=== PATIENT | female | born 1955 | race Caucasian/White ===

== ENCOUNTER 2018-03-25 19:14 | Emergency (ER) | payer MEDICARE, SELFPAY ==
[2018-03-25] VITALS (11 sets, daily range): BP systolic 92–129; BP diastolic 41–69; PULSE 77–102; RESP 15–22; TEMP 37–37.2; O2SAT 92–96
--- NOTE | 2018-03-25 19:45 | DI.RPTCT_ITS ---
SYMPTOM/DIAGNOSIS: LEFT POSTERIOR HEADACHE, VISION CHANGES, NAUSEA CT BRAIN: Noncontrast examination. Comparison examination is 02/10/2010 The ventricles and sulci are consistent with the patient's age. White matter differentiation is well maintained. The ventricles are intact. The basilar cisterns are patent. No acute intracranial hemorrhage, infarct, midline shift or mass effect is identified. The calvarium is intact. There is again seen an area of scalloped and cortical thinning along the right frontal bone. This is unchanged dating back to the oldest CT scan available which is 10/31/2006. The visualized paranasal sinuses are clear. The mastoid air cells are well pneumatized. IMPRESSION: No acute intracranial process
--- NOTE | 2018-03-25 19:46 | ED.GENADUL ---
Disposition Clinical Impression: Transient visual changes Condition: Good Instructions: Dehydration (ED) Additional Instructions: We will ask our care management team to set up a follow-up appointment with you in Dr. Powell's office. Home to rest today. Small, frequent sips of fluids to maintain hydration. Return if you develop recurrent headache, fever, vomiting, recurrent visual changes or any other concerns. Continue all regularly prescribed medications. Medical Decision Making - Lab Data Laboratory Results - last 24 hr 03/25/18 03/25/18 03/25/18 19:40 19:40 19:40 WBC 7.73 RBC 3.41 L Hgb 9.6 L Hct 31.1 L MCV 91.2 MCH 28.2 MCHC 30.9 L RDW 17.1 H Plt Count 211 MPV 9.1 Immature Gran % 0.4 Neutrophils % 70.9 Lymphocytes % 19.4 Monocytes % 8.0 Eosinophils % 1.2 Basophils % 0.1 Absolute Neutrophils 5.48 Absolute Lymphocytes 1.50 Absolute Monocytes 0.62 Absolute Eosinophils 0.09 Absolute Basophils 0.01 PT 20.0 H INR 2.1 Sodium 138 Potassium 4.3 Chloride 102 Carbon Dioxide 28.7 Anion Gap 7.3 BUN 11 Creatinine 1.22 H Estimated GFR/1.73 m2 44.81 Glucose 147 H Calcium 8.8 Magnesium 2.1 Total Bilirubin 0.2 AST 16 ALT 25 Alkaline Phosphatase 123 H Troponin I < 0.02 Total Protein 7.5 Albumin 3.1 L Results reviewed for labs ordered during visit: Yes - EKG Data -: EKG Interpreted by Ok EKG shows normal: sinus rhythm 03/25/18 20:10 Normal sinus rhythm, rate of 90, QRS is narrow, there is no ST segment elevation present - Radiology Data Radiology results: report reviewed, image reviewed - Medical Decision Making 62-year-old female presents from home following transient visual field changes associated with mild headache and nausea. She is afebrile with unremarkable vital signs although pulse is high at rest in the 90s. Cranial nerves II through XII are intact, no evidence of vestibular dysfunction with normal finger to nose, no nystagmus. Diagnosis would include CVA, migraine headache. IV placed, labs and screening EKG obtained, patient referred for CT scan of the head. Sodium 138, potassium 4.3, chloride 102, bicarb 28, BUN 11, creatinine 1.2, glucose 147, AST 16, ALT 25, troponin negative INR 2.1White blood cell count 7, hematocrit 31, platelets 211. Review of labs will reveal slow decline in hemoglobin over years time. Her creatinine is elevated over most recent baseline of 0.8. CT scan of the head with chronic unchanged findings, no acute finding. Following Zofran and 1 L of fluids, patient improved with no persistent discomfort or complaints. She is able to ambulate independently without dizziness or unsteadiness of gait. We will asked that she have a follow-up arranged by care management for recheck of her laboratories outpatient clinic, specifically including blood count and creatinine. Discussed with her home management as well as return precautions. Do not find evidence of posterior circulation insult. Stable for outpatient management. History of Present Illness - General Chief complaint: CVA/TIA Stated complaint: EYE PROBLEM Time Seen by Provider: 03/25/18 19:33 Source: patient, family, RN notes reviewed Mode of arrival: ambulatory Limitations: no limitations - History of Present Illness Initial comments: Transient visual changes: 62-year-old female states she was at home, watching television, once she had the abrupt and self-limited onset of approximately 20 minutes time in which she felt a blurring of her vision as well as blocks in which she felt that there was picture and picture being demonstrated on the television. Associated with nausea and a mild sensation of dizziness. She relates that all day she felt a dull, mild, achy discomfort in her neck but she says does not really qualify as a pain. She has not had a fever or stiff neck. She did not fall or strike her head. She has not had any recent illness. She does have a history of migraine headaches as well as chronic pain. She is anticoagulated on warfarin for history of blood clots. She states she now feels better, as above the episode lasted 20 minutes, now resolved, now states she feels mildly nauseated. - Related Data Amitriptyline HCl 25 mg PO DAILY #30 tab-cap 01/20/14 Narcotic Contract 03/02/14 Elbow Sleeve 1 DAILY #1 each 03/21/16 Lactobacillus Acidophilus [Probiotic] 1 each PO DAILY 07/04/16 Aspirin 81 mg PO DAILY tab.chew 03/20/17 Nystatin 1 tsp PO QID #120 ml 05/29/17 Baclofen 2 tab PO HS #90 tab-cap 05/31/17 Loperamide HCl [Loperamide] 2 mg PO QID PRN #60 tab 06/19/17 Chlorhexidine Gluconate 2 ml MM BID #473 ml 07/24/17 Blood Sugar Diagnostic [LoggedIntouch Ultra Blue Test Strp] 1 each BID #100 strip 07/31/17 Proventil Hfa 1 - 2 puff IH Q6 hours PRN #1 inhaler 08/22/17 Lancets [LoggedIntouch Lancets] 1 each BID #100 each 08/27/17 Metformin HCl 1,000 mg PO BID #180 tab-cap 09/26/17 Omeprazole 20 mg PO DAILY #90 tab-cap 11/22/17 Magnesium Oxide 2 tab PO TID #540 tab 11/23/17 Warfarin [Coumadin] 5 mg PO DIRECTED BY #100 tab 11/26/17 Dapsone 2 tab PO BID #240 tab-cap 12/04/17 Gabapentin 2 cap PO TID #180 tab-cap 12/04/17 Triamcinolone 0.1% Lotion [Kenalog 0.1% Lotion] 0 TP HS #60 ml 12/04/17 Hydrocodone/Acetaminophen [Hydrocodone-Acetamin 10-325 mg] 1 tab-cap PO Q6H PRN PRN #120 tab-cap 02/12/18 Triamcinolone Acetonide 0 TP BID #30 g 02/12/18 PredniSONE [Deltasone] 0 PO DAILY #24 tab-cap 03/13/18 Allergies Allergy/AdvReac Type Severity Reaction Status Date / Time rizatriptan benzoate Allergy Severe Unverified 03/13/18 14:08 [From Maxalt] azithromycin Allergy Intermediate SOB Unverified 03/13/18 14:08 sulfamethoxazole Allergy Intermediate Unverified 03/13/18 14:08 trimethoprim [From Bactrim] Allergy Intermediate Unverified 03/13/18 14:08 venlafaxine Allergy Intermediate Unverified 03/13/18 14:08 adhesive Allergy RASH Unverified 03/13/18 14:08 wheat Allergy SKIN RASH Unverified 03/13/18 14:08 sertraline AdvReac Intermediate sweating Unverified 03/13/18 14:08 tramadol AdvReac Intermediate Nausea Unverified 03/13/18 14:08 amoxicillin AdvReac GI UPSET Unverified 03/13/18 14:08 Review of Systems Other: 8 systems reviewed, otherwise negative Past Medical History - Past Medical History Medical history: diabetes, GERD, hyperlipidemia dvt, PE. celiac disease. Surgical history: cholecystectomy, other (recent carpal tunnel right wrist) HEAD START DIRECTOR history: no HEAD START DIRECTOR history Family history: CAD/[place] (grand father), diabetes (aunt uncle) - Social History Alcohol use: none Drug use: none General Exam - General Limitations: no limitations General appearance: alert, in no apparent distress - Head Head exam: Present: atraumatic, normocephalic - Eye Eye exam: Present: normal apperance, PERRL, EOMI Pupils: Present: normal accommodation - ENT ENT exam: Present: normal exam, TM's normal bilaterally - Neck Neck exam: Present: normal inspection. Absent: tenderness, meningismus - Respiratory Respiratory exam: Present: normal lung sounds bilaterally. Absent: respiratory distress, chest wall tenderness - Cardiovascular Cardiovascular Exam: Present: regular rate, normal rhythm. Absent: systolic murmur - GI/Abdominal GI/Abdominal exam: Present: soft. Absent: distended - Neurological Exam Neurological exam: Present: alert, oriented X3, CN II-XII intact, other (Extraocular movements intact in all cardinal movements. Visual larios intact. Cranial nerves II through XII intact. Negative Romberg. Normal finger to nose bilateral.). Absent: motor sensory deficit - Psychiatric Psychiatric exam: Present: normal affect, normal mood - Skin Skin exam: Present: warm, dry, intact Course Vital Signs - 24 hr 03/25/18 19:27 Temperature 37.2 C Pulse 99 H Respiratory 16 Rate Blood Pressure 127/69 Pulse Oximetry 94 L
[2018-03-25 19:57] LABS: Abs Immature Grans 0.03 k/cumm (0.0-0.09); Absolute Basophil Count 0.01 k/cumm (0.0-0.2); Absolute Eosinophil Count 0.09 k/cumm (0.0-0.7); Absolute Monocyte Count 0.62 k/cumm (0.11-0.7); Absolute Neutrophil Count 5.48 k/cumm (1.2-6.7); Basophils % 0.1; Eosinophils % 1.2; HCT 31.1 % (36.0-46.0); HGB 9.6 g/dL (12.0-15.5); Immature Grans % 0.4; Lymphocytes % 19.4; Mean Corp. HGB Concentration 30.9 g/dL (32.0-36.0); Mean Corpuscular Hemoglobin 28.2 pg (27.0-33.0); Mean Corpuscular Volume 91.2 fL (80-95); Mean Platelet Volume 9.1 fL (8.0-11.0); Neutrophils % 70.9; Platelet Count 211 x1000/uL (130-400); RBC 3.41 m/cumm (4.00-5.20); RBC Distribution Width 17.1 % (11.7-14.6); White Blood Cell Count 7.73 k/cumm (4.4-10.8)
[2018-03-25 20:12] LABS: INR 2.1 (1.0-3.5)
--- NOTE | 2018-03-25 20:12 | DI.VRAD_ITS ---
EXAM: CT Head Without Intravenous Contrast CLINICAL HISTORY: 62 years old, female; Signs and symptoms; Visual disturbance and other: Left posterior headache, nausea; Patient HX: Left posterior headache, nausea, vision changes TECHNIQUE: Axial computed tomography images of the head/brain without intravenous contrast. Coronal and sagittal reformatted images were created and reviewed. COMPARISON: CT - HEAD WITHOUT CONTRAST 2014-11-21 20:02 FINDINGS: Brain: No evidence of acute intracranial bleed. No mass lesion or mass effect. Granados/white matter differentiation is unremarkable. Cerebellum is unremarkable. Cisterns are unremarkable. Brainstem is unremarkable. No suprasellar mass. Ventricles: Unremarkable. No ventriculomegaly. Bones/joints: Scalloping and cortical thinning again seen in right frontal bone with adjacent prominence of CSF measuring approximately 1.5x1.4 cm. No acute fracture. Soft tissues: Unremarkable. Sinuses: Unremarkable as visualized. No acute sinusitis. Mastoid air cells: Unremarkable as visualized. No mastoid effusion. IMPRESSION: 1. Scalloping and cortical thinning again seen in right frontal bone with adjacent prominence of CSF measuring approximately 1.5x1.4 cm. No significant interval change compared to prior study 2014. The finding likely represents a small arachnoid cyst with osseous remodeling. 2. No evidence of acute pathology. Dictated and Authenticated by: Jase Ness MD. Ordering:NURA SHETTY MD
[2018-03-25 20:20] LABS: ALT 25 U/L (12-78); AST 16 U/L (15-37); Albumin 3.1 g/dL (3.4-5.0); Alkaline Phosphatase 123 U/L (46-116); Anion Gap 7.3 mmol/L (3-11); BUN 11 mg/dL (7-18); Bilirubin, Total 0.2 mg/dL (0.2-1.0); CO2 28.7 mmol/L (21.0-32.0); CREATININE 1.22 mg/dL (0.55-1.02); Calcium 8.8 mg/dL (8.5-10.1); Chloride 102 mmol/L (98-107); Estimated GFR 44.81 (mL/min/1.73m2); Glucose 147 mg/dL (70-100); Magnesium 2.1 mg/dL (1.8-2.4); Potassium 4.3 mmol/L (3.5-5.1); Sodium 138 mmol/L (136-145); Total Protein 7.5 g/dL (6.4-8.2); Troponin I < 0.02 ng/mL (0.00-0.06)
[2018-03-25] MEDS: Normal Saline 1,000 ML 150 ML IV (20:20)
[2018-03-25] MEDS: Ondansetron 4 MG/2 ML VIAL IVP (20:20)
--- NOTE | 2018-03-26 08:23 | PDOC.ERCMPRO ---
Care Management Progress Note 03/26-Dr. Pozo requested assistance with the PCP (Dr. Powell) for follow up labs in 7-10 days. Referral faxed to [facility] this am.
== END 2018-03-25 21:20 ==
PROVIDERS: Emergency Provider Emergency Medicine; PCP Family Medicine
DX: H53.8 Other visual disturbances (principal); R51 Headache; R11.0 Nausea; E11.9 Type 2 diabetes mellitus without complications; Z79.84 Long term (current) use of oral hypoglycemic drugs
CPT/HCPCS: 70450; 93005; 96361; 96374; 99284; 99285; J2405; 36415; 80053; 83735; 84484; 85025; 85610; 93010

== ENCOUNTER → 2018-04-02 01:45 | Outpatient (CLI) | payer MEDICARE, SELFPAY ==
--- NOTE | 2018-04-02 16:35 | DI.REPORT_ITS ---
SYMPTOM/DIAGNOSIS: OSTEOPOROSIS WITHOUT CURRENT PATHOLOGICAL FX M81.8 DEXA SCAN : 04/02 Dexa scan was performed according to the usual protocol. Please see the accompanying data sheets. The findings for left hip scanning are T-score -2.4 with left femoral neck T- score -2.1. Previous left hip T-score was -1.9 in January 2015. Lumbar spine scanning shows T-score of 0.9, previous examination of January 2015 showed lumbar T-score of 1.5 Left forearm scan shows T-score -1.2, previous examination of January 2015 showed left forearm T-score of -1.0 CONCLUSION: Findings consistent with osteopenia, according to the WHO criteria. Lateral vertebral scanogram shows no evidence of vertebral compression fracture.
== END ==
PROVIDERS: PCP Family Medicine; Visit Provider Internal Medicine
DX: M75.82 Other shoulder lesions, left shoulder (principal); M85.88 Other specified disorders of bone density and structure, other site; M25.512 Pain in left shoulder
CPT/HCPCS: 77080; 99213

== ENCOUNTER → 2018-04-19 13:35 | Outpatient (CLI) | payer MEDICARE, SELFPAY ==
--- NOTE | 2018-04-19 13:34 | DI.CT_ITS ---
SYMPTOMS/DIAGNOSIS: CHRONIC LEFT FOOT PAIN, M79.672 CT OF THE LEFT FOOT: Comparison is made with plain films dated February,. Soft tissue calcifications are seen in the subcutaneous fat. The bones are osteoporotic. No fracture is identified. There are small heel spurs. There are mild degenerative changes, greatest at the tarsometatarsal joints. No localized fluid collection, abscess or foreign body is seen. IMPRESSION: Benign soft tissue calcifications. Osteoporosis and mild degenerative changes.
== END ==
PROVIDERS: PCP Family Medicine; Visit Provider Family Medicine
DX: G89.29 Other chronic pain (principal); M79.672 Pain in left foot; M19.072 Primary osteoarthritis, left ankle and foot; M77.32 Calcaneal spur, left foot
CPT/HCPCS: 73700

== ENCOUNTER 2018-04-26 01:11 | Emergency (ER) | payer MEDICARE, SELFPAY ==
[2018-04-26 01:16] VITALS: BP 124/60; PULSE 85; RESP 18; TEMP 37; O2SAT 99
[2018-04-26 01:30] VITALS: BP 124/60; PULSE 85; RESP 18; TEMP 37; O2SAT 99
--- NOTE | 2018-04-26 01:30 | NUR.NOTE ---
Nursing Note: Pt assessed by MD, decided to leave AMA as she did not want to wait for observation. No lip swelling or distinct tongue swelling noted by this nurse or MD. Pt refuses to sign any AMA paperwork and states you'd better not send me a bill to MD.
--- NOTE | 2018-04-26 01:43 | ED.GENADUL_ITS ---
Discharge Plan Disposition Patient Disposition: AGAINST MEDICAL ADVICE Condition: Good Discharge Details Chief Complaint: Allergic Clinical Impression: Mild tongue swelling Primary Care Provider: Jerman Powell ED Provider: Manolo Dodson Home Meds and New Rx's Prescriptions: No Action amitriptyline 25 MG tablet 25 mg PO DAILY Qty: 30 RF: 3 NARCOTIC CONTRACT RF: 0 Elbow Sleeve 1 DAILY Qty: 1 RF: 0 Lactobacillus acidophilus [Probiotic] 1 EACH capsule 1 ea PO DAILY RF: 0 aspirin 81 MG tablet,chewable 81 mg PO DAILY RF: 0 nystatin 1 EACH powder 1 tsp PO QID Qty: 120 RF: 1 baclofen 10 MG tablet 2 tab PO HS Qty: 90 RF: 4 loperamide 2 MG tablet 2 mg PO QID PRNQty: 60 RF: 3 chlorhexidine gluconate 473 ML mouthwash 2 ml Mucous Membrane BID Qty: 473 RF: 2 blood sugar diagnostic [OneTouch Ultra Test] 1 EACH strip 1 ea Miscellaneous BID Qty: 100 RF: 5 PROVENTIL HFA 18 GM HFA.AER.AD 1 - 2 puff Inhalation Q6 hours PRN Qty: 1 RF: 0 lancets [OneTouch UltraSoft Lancets] 1 EACH misc 1 ea Miscellaneous BID Qty: 100 RF: 4 metformin 1,000 MG tablet 1,000 mg PO BID Qty: 180 RF: 4 omeprazole 20 MG capsule,delayed release(DR/EC) 20 mg PO DAILY Qty: 90 RF: 4 magnesium oxide 400 MG tablet 2 tab PO TID Qty: 540 RF: 4 warfarin [Coumadin] 5 MG tablet 5 mg PO DIRECTED BY Qty: 100 RF: 3 dapsone 25 MG tablet 2 tab PO BID Qty: 240 RF: 6 gabapentin 300 MG capsule 2 cap PO TID Qty: 180 RF: 4 triamcinolone acetonide 60 ML lotion Topical HS Qty: 60 RF: 3 triamcinolone acetonide 15 GM cream Topical BID Qty: 30 RF: 3 Hydrocodone/Acetaminophen [Hydrocodone-Acetamin 10-325 mg] 1 EACH tablet 1 tab-cap PO Q6H PRN PRNQty: 120 RF: 0 Discharge Instructions Additional Instructions: You are leaving AMA. I wished to observe you for the next hour or 2 to see if the swelling got worse. Swelling was not obvious and I wanted to see what happened over time. You left without any type of instruction or signing of papers. Referrals: Jerman Powell MD [Primary Care Provider] - Medical Decision Making MDM Narrative Medical decision making narrative: Patient vital signs are normal. Saturations are normal. There is no facial or lip swelling that I appreciate. The tongue may be slightly swollen versus just a large tongue. It is not clear-cut angioedema. There is no posterior oropharynx swelling. There are dry mucous membranes. Lungs are clear and she is in no distress. I did not feel it necessary to treat with medications but wanted to observe her over the next hour or 2 to see if there was any increase in swelling since I could not appreciate significant swelling at this point. She became quite upset with me and told me she was leaving. She would not listen to any explanations as to why I wanted to watch. She would not sign any discharge or AMA instructions. She instructed me that she should not get a bill. Patient left before medication reconcilliation could be done. HPI - General Adult General Mode of arrival: ambulatory . Date/Time Provider Initiated Documentation: 04/26/18 01:23 . Limitations to Documentation: no limitations . Information obtained by: patient . HPI Narrative: Patient presents to ED with complaints of swollen lips and tongue. She states she woke up this way. She denies difficulty breathing or swallowing. She denies any itchiness or rash. She denies numbness or tingling. She has never had this previously. There are no new medications. She is not on JEN inhibitors. She has no fever or chills. She has no mouth or throat pain. Related Data Home Medications Medication Instructions Recorded Confirmed Narcotic Contract 03/02/14 09/21/15 Lactobacillus acidophilus 1 ea PO DAILY 07/04/16 05/03/17 [Probiotic] aspirin 81 mg PO DAILY tab.chew 03/20/17 05/03/17 Allergies Allergy/AdvReac Type Severity Reaction Status Date / Time rizatriptan benzoate Allergy Severe Unverified 04/26/18 01:26 [From Maxalt] azithromycin Allergy Intermediate SOB Unverified 04/26/18 01:26 sulfamethoxazole Allergy Intermediate Unverified 04/26/18 01:26 trimethoprim [From Bactrim] Allergy Intermediate Unverified 04/26/18 01:26 venlafaxine Allergy Intermediate Unverified 04/26/18 01:26 adhesive Allergy RASH Unverified 04/26/18 01:26 wheat Allergy SKIN RASH Unverified 04/26/18 01:26 sertraline AdvReac Intermediate sweating Unverified 04/26/18 01:26 tramadol AdvReac Intermediate Nausea Unverified 04/26/18 01:26 amoxicillin AdvReac GI UPSET Unverified 04/26/18 01:26 General Stated Complaint: Allergic JOSE JUAN: 3 Review of Systems Constitutional Denies chills, Denies fever(s) and Denies weakness Eyes Patient denies and Denies itchy eyes ENT Denies change in voice, Denies dysphagia, Reports dry mouth, Denies otalgia, Denies hoarseness, Reports lip swelling, Denies mouth lesions, Denies mouth pain , Denies nasal congestion, Denies nasal discharge, Denies sinus pain, Denies sore throat, Denies throat swelling and Reports tongue swelling Cardiovascular Denies chest pain and Denies dyspnea Respiratory Denies cough and Denies dyspnea Gastrointestinal Denies abdominal pain and Denies dysphagia Musculoskeletal Denies numbness and Denies tingling Integumentary/Breasts Denies pruritus and Denies rash Neurologic Denies numbness, Denies tingling and Denies weakness Allergic/Immunologic Denies itchy eyes, Reports lip swelling, Denies throat swelling and Reports tongue swelling PFSH Family History Mother Personal history of malignant neoplasm Father Asthma Sister No problems noted. Brother No problems noted. Medical History Chronic pain (Chronic) DVT (deep venous thrombosis) (Chronic) Diabetes mellitus (Chronic) GERD (gastroesophageal reflux disease) (Chronic) Pulmonary embolism (Chronic) Social History Smoking/Tobacco Use Status: Current every day Surgical History section Exam Const General: cooperative, comfortable and no acute distress Orientation: alert and oriented x3 HENMT Head: normocephalic and atraumatic Ears: external ears normal General nose exam: external nose normal Face and sinus: normal facial exam Mouth: oral mucosae normal, lip normal, oropharynx normal, tongue abnormal ( possible symetric swelling of tongue versus large tongue) and other (Mucous membranes are dry) Eyes Conjunctivae: conjunctivae normal Resp Effort & Inspection: normal respiratory effort Auscultation: clear to auscultation bilaterally Cardio Rate: regular rate Rhythm: regular rhythm Heart Sounds: S1 normal and S2 normal Neuro General: alert, oriented x3, gait normal, moves all extremities, no focal motor deficits and CN's II-XI intact bilaterally Course Vital Signs Temperature 98.6 F 04/26/18 01:16 Pulse 85 04/26/18 01:16 Respiratory Rate 18 04/26/18 01:16 Blood Pressure 124/60 04/26/18 01:16 Pulse Oximetry 99 04/26/18 01:16 Temperature 98.6 F 04/26/18 01:30 Pulse 85 04/26/18 01:30 Respiratory Rate 18 04/26/18 01:30 Blood Pressure 124/60 04/26/18 01:30 Pulse Oximetry 99 04/26/18 01:30
== END 2018-04-26 01:29 | disposition left against medical advice (07) ==
LOC: ER 03:35
PROVIDERS: Emergency Provider Emergency Medicine; PCP Family Medicine
DX: R60.0 Localized edema (principal); Z53.29 Procedure and treatment not carried out because of patient's decision for other reasons; E11.9 Type 2 diabetes mellitus without complications; Z79.84 Long term (current) use of oral hypoglycemic drugs
CPT/HCPCS: 99281

== ENCOUNTER 2018-04-29 07:43 | Emergency (ER) | payer MEDICARE, SELFPAY ==
[2018-04-29 07:47] VITALS: BP 145/66; PULSE 92; RESP 16; TEMP 36.8; O2SAT 95
[2018-04-29 08:59] LABS: Abs Immature Grans 0.01 k/cumm (0.0-0.09); Absolute Basophil Count 0.01 k/cumm (0.0-0.2); Absolute Lymphocyte Count 0.69 k/cumm (1.2-3.4); Absolute Monocyte Count 0.22 k/cumm (0.11-0.7); Absolute Neutrophil Count 4.19 k/cumm (1.2-6.7); Basophils % 0.2; HCT 33.5 % (36.0-46.0); HGB 10.3 g/dL (12.0-15.5); Immature Grans % 0.2; Lymphocytes % 13.5; Mean Corp. HGB Concentration 30.7 g/dL (32.0-36.0); Mean Corpuscular Hemoglobin 27.4 pg (27.0-33.0); Mean Corpuscular Volume 89.1 fL (80-95); Monocytes % 4.3; Neutrophils % 81.8; Platelet Count 198 x1000/uL (130-400); RBC 3.76 m/cumm (4.00-5.20); White Blood Cell Count 5.12 k/cumm (4.4-10.8)
--- NOTE | 2018-04-29 09:05 | W.ED.GENAD ---
Discharge Plan Disposition Patient Disposition: HOME Condition: Improving Discharge Details Chief Complaint: Nk/Back Pain Clinical Impression: Sciatica, Fatigue Primary Care Provider: Jerman Powell ED Provider: Carmen Jorge Home Meds and New Rx's Prescriptions: New diazepam 5 mg tablet 5 mg PO TID PRN (Reason: muscle spasm) Qty: 10 RF: 0 oxycodone 5 mg tablet 5 mg PO Q6H PRN (Reason: pain) Qty: 10 RF: 0 Continue amitriptyline 25 MG tablet 25 mg PO DAILY Qty: 30 RF: 3 NARCOTIC CONTRACT RF: 0 Elbow Sleeve 1 DAILY Qty: 1 RF: 0 Lactobacillus acidophilus [Probiotic] 1 EACH capsule 1 ea PO DAILY RF: 0 aspirin 81 MG tablet,chewable 81 mg PO DAILY RF: 0 nystatin 1 EACH powder 1 tsp PO QID Qty: 120 RF: 1 baclofen 10 MG tablet 2 tab PO HS Qty: 90 RF: 4 loperamide 2 MG tablet 2 mg PO QID PRNQty: 60 RF: 3 chlorhexidine gluconate 473 ML mouthwash 2 ml Mucous Membrane BID Qty: 473 RF: 2 blood sugar diagnostic [OneTouch Ultra Test] 1 EACH strip 1 ea Miscellaneous BID Qty: 100 RF: 5 lancets [OneTouch UltraSoft Lancets] 1 EACH misc 1 ea Miscellaneous BID Qty: 100 RF: 4 metformin 1,000 MG tablet 1,000 mg PO BID Qty: 180 RF: 4 omeprazole 20 MG capsule,delayed release(DR/EC) 20 mg PO DAILY Qty: 90 RF: 4 magnesium oxide 400 MG tablet 2 tab PO TID Qty: 540 RF: 4 warfarin [Coumadin] 5 MG tablet 5 mg PO DIRECTED BY Qty: 100 RF: 3 dapsone 25 MG tablet 2 tab PO BID Qty: 240 RF: 6 gabapentin 300 MG capsule 2 cap PO TID Qty: 180 RF: 4 triamcinolone acetonide 60 ML lotion Topical HS Qty: 60 RF: 3 triamcinolone acetonide 15 GM cream Topical BID Qty: 30 RF: 3 Discontinued Hydrocodone/Acetaminophen [Hydrocodone-Acetamin 10-325 mg] 1 EACH tablet 1 tab-cap PO Q6H PRN PRNQty: 120 RF: 0 Discharge Instructions Instructions: Sciatica (ED), Fatigue (ED) Additional Instructions: Drink plenty of fluids and get plenty of rest. Do not take your hydrocodone while you are taking the oxycodone. Do not take the baclofen while you are taking the Valium. Take your baclofen only at nighttime as usual. Call your primary care doctor today to schedule follow-up appointment for reevaluation. Return to the emergency department with any worsening or new concerning symptoms. Discharge Data Discharge Date/Time-TO BE ENTERED AT DEPARTURE: 04/29/18 12:45 Discharge Physician: Carmen Jorge Medical Decision Making MDM Narrative Medical decision making narrative: 62-year-old female with a history of chronic back pain on chronic 10 mg hydrocodone every 6 hours who has chronic lower back pain and history of sciatica who presents with left-sided lower back pain with radiation down her left leg since walking up until yesterday. She has not taken her hydrocodone since last night and she states it does not help . She admits to chronic left lower extremity pain and numbness is states is no worse than usual. Otherwise no other new cauda equina symptoms.. Patient is laying flat on bed and appears uncomfortable. She has tenderness to palpation of her left lower back and left buttock. No focal deficits. Neurovascularly intact. Abdomen soft nontender. Patient also complaining of feeling dehydrated. She states I want to be tested for dehydration. She has a history of celiac disease and admits to diarrhea every day for several months. She also states she feels tired constantly . Patient states she has not seen a specialist for her celiac disease and only her PCP Dr. Powell for which she takes dapsone. She also admits to urinary frequency. Vitals within normal limits. She has dry mucous membranes. Will place an IV, bolus IV fluids, labs, urinalysis, oxycodone, Valium. As patient has a few complaints, I feel overall her back pain complaint is likely sciatica. Her dehydration may be attributable to her chronic diarrhea and celiac disease with malabsorption but will check labs to make sure no other acute cause is anemia, electrolyte abnormality, ACS, or UTI. It is possible her chronic fatigue is due to her chronic diarrhea and malabsorption. She has no complaint of chest pain, shortness of breath, cough or fever, so I do not see an indication for chest x-ray at this time. 0927 --EKG notes a rate of 92, atrial rhythm, no acute ST elevation or depression. There is T-wave inversion in III and aVF which appears new compared to previous. QTc 435. QRS 86. She has no complaint of chest pain or shortness of breath. 1000 --labs reviewed and no obvious signs of dehydration. Glucose 219. Patient has history of diabetes. Bicarb 25.6. Anion gap 10.4. Troponin negative. Magnesium 1.6. Will replete. Urinalysis normal specific gravity and no evidence of obvious infection, micro pending. 1100 --urinalysis micro 3-5 RBCs and 0-2 WBCs. 1130 --patient feels much better. Patient is sitting up on edge of bed texting on phone and appears much more comfortable. Patient states she feels good to go home. Patient states she feels that the hydrocodone that she is taking at home does not help. Will send home with a small prescription for oxycodone as well as Valium. Patient was instructed to not take the hydrocodone while she is taking oxycodone due to increased risk of respiratory depression or . She is also taking multiple other sedating medications including gabapentin, baclofen. She states she takes gabapentin 3 times daily and baclofen only at night. She is instructed to not take the baclofen and Valium at the same time. I also discussed with patient the possibility of steroids for sciatica however due to her history of diabetes and the risk of hyperglycemia with steroids, will hold on this at this time to see if she has relief with the muscle relaxer and pain medication patient is agreeable with this plan. She is instructed to call her primary care doctor today to schedule follow-up appointment for reevaluation. Did not order PT/INR in error initially so will check now. INR 2.1. Patient is requesting to go home. She was able to ambulate around room in no acute distress. She is instructed to return if worse. Lab Data Lab Results 04/29/18 Range/Units 08:55 WBC 5.12 (4.4-10.8) k/cumm RBC 3.76 L (4.00-5.20) m/cumm Hgb 10.3 L (12.0-15.5) g/dL Hct 33.5 L (36.0-46.0) % MCV 89.1 (80-95) fL MCH 27.4 (27.0-33.0) pg MCHC 30.7 L (32.0-36.0) g/dL RDW 16.0 H (11.7-14.6) % Plt Count 198 (130-400) x1000/uL MPV 10.0 (8.0-11.0) fL Immature Gran % 0.2 Neutrophils % 81.8 Lymphocytes % 13.5 Monocytes % 4.3 Eosinophils % 0.0 Basophils % 0.2 Absolute Neutrophils 4.19 (1.2-6.7) k/cumm Absolute Lymphocytes 0.69 L (1.2-3.4) k/cumm Absolute Monocytes 0.22 (0.11-0.7) k/cumm Absolute Eosinophils 0.00 (0.0-0.7) k/cumm Absolute Basophils 0.01 (0.0-0.2) k/cumm HPI - General Adult General Mode of arrival: ambulatory. Date/Time Provider Initiated Documentation: 04/29/18 08:12. Limitations to Documentation: no limitations. Information obtained by: patient. HPI Narrative: Patient is a 62-year-old female with a history of chronic back pain on hydrocodone 10 mg every 6 hours, sciatica, migraine, diabetes, pulmonary embolism and DVT on Coumadin, hyperlipidemia, and peripheral vascular disease presents for left-sided lower back pain with radiation down legs since yesterday after walking uphill. She does have a history of chronic lower back pain and chronic leg pain and tingling for several years. States the back pain is similar in quality to her usual chronic back pain but more intense since walking up the hill yesterday. She denies weakness in her legs. She denies abdominal pain, saddle anesthesia, urinary or fecal incontinence. She does also have a history of celiac disease and admits to chronic diarrhea for several months. States she is on dapsone which was given to her by tax accounting manager who has since moved to [place]. States Dr. Powell her PCP continues her dapsone. She also states she feels like she is dehydrated due to her chronic diarrhea and would like to be tested for dehydration. She also admits to intermittent urinary frequency. She denies fever, chest pain, shortness of breath, hematuria, dysuria. Past medical history: Migraine, GERD, diabetes, hyperlipidemia, peripheral vascular disease, pulmonary embolism, DVT, chronic back pain, celiac disease Surgical history: Social history: Smokes tobacco, previous history of alcohol abuse, denies drugs Medications: Hydrocodone 10/325 mg every 6 hours, Coumadin, baclofen, Neurontin, Prilosec, dapsone, probiotic Allergies: See list PCP: Dr. Powell Related Data Home Medications Medication Instructions Recorded Confirmed Narcotic Contract 03/02/14 09/21/15 Lactobacillus acidophilus 1 ea PO DAILY 07/04/16 04/29/18 [Probiotic] aspirin 81 mg PO DAILY tab.chew 03/20/17 04/29/18 Previous Rx's Medication Instructions Recorded diazepam 5 mg PO TID PRN #10 tab 04/29/18 oxycodone 5 mg PO Q6H PRN #10 tab 04/29/18 Allergies Allergy/AdvReac Type Severity Reaction Status Date / Time rizatriptan benzoate Allergy Severe Unverified 04/29/18 08:00 [From Maxalt] azithromycin Allergy Intermediate SOB Unverified 04/29/18 08:00 sulfamethoxazole Allergy Intermediate Unverified 04/29/18 08:00 trimethoprim [From Bactrim] Allergy Intermediate Unverified 04/29/18 08:00 venlafaxine Allergy Intermediate Unverified 04/29/18 08:00 adhesive Allergy RASH Unverified 04/29/18 08:00 wheat Allergy SKIN RASH Unverified 04/29/18 08:00 sertraline AdvReac Intermediate sweating Unverified 04/29/18 08:00 tramadol AdvReac Intermediate Nausea Unverified 04/29/18 08:00 amoxicillin AdvReac GI UPSET Unverified 04/29/18 08:00 General Stated Complaint: Nk/Back Pain JOSE JUAN: 4 Review of Systems Review of Systems All systems reviewed & are unremarkable except as noted in HPI and below Constitutional Denies chills, Denies excessive sweating, Denies fatigue, Denies fever(s), Denies weakness and Denies weight loss Eyes Patient Reports system reviewed and no additional complaints, except as docu and Denies blurry vision ENT Denies vertigo, Denies dizziness, Denies otalgia, Denies nasal congestion, Denies neck pain, Denies sore throat and Denies throat swelling Cardiovascular Denies chest pain, Denies syncope, Denies rapid heart rate and Denies dyspnea Respiratory Denies dyspnea Gastrointestinal Denies abdominal pain, Denies diarrhea and Denies vomiting Genitourinary Denies hematuria, Denies dysuria and Denies flank pain Musculoskeletal Reports back pain, Denies neck pain and Reports tingling Integumentary/Breasts Denies lesions and Denies rash Neurologic Denies behavioral changes, Denies confusion, Denies vertigo, Denies dizziness, Denies syncope, Reports tingling and Denies weakness Psychiatric Denies behavioral changes, Denies confusion and Denies depression Endocrine Denies excessive sweating and Denies fatigue Hematologic/Lymphatic Denies easy bruising and Denies lymphadenopathy Allergic/Immunologic Denies throat swelling PFSH Family History Mother Personal history of malignant neoplasm Father Asthma Sister No problems noted. Brother No problems noted. Medical History Chronic pain (Chronic) DVT (deep venous thrombosis) (Chronic) Diabetes mellitus (Chronic) GERD (gastroesophageal reflux disease) (Chronic) Pulmonary embolism (Chronic) Social History Smoking/Tobacco Use Status: Current every day Surgical History section Exam Const General: cooperative, no acute distress and other (Appears mildly uncomfortable lying supine on bed, pain with range of motion on bed.) Orientation: alert and awake HENKY Head: normal to inspection Ears: hearing grossly normal bilaterally, external ears normal and TM's normal bilaterally General nose exam: external nose normal Face and sinus: normal facial exam Mouth: moist mucous membranes abnormal (Dry mucous membranes) Eyes General: appearance normal, both eyes and all related structures Eyelids: eyelids normal Pupils: PERRL EOM: EOM intact bilaterally Neck Neck: normal visual inspection Lymphatic: no lymphadenopathy noted Chest Chest: normal inspection of the chest Resp Effort & Inspection: normal respiratory effort and able to speak in complete sentences Auscultation: clear to auscultation bilaterally Cardio Rate: regular rate Rhythm: regular rhythm GI Inspection: normal to inspection Palpation: soft, not firm, no guarding, no hepatosplenomegaly, no masses and nontender Auscultation: normal bowel sounds Back/Spine/Pelvis Back: no CVA tenderness Thoracic/Lumbar Spine: No thoracic spinal tenderness, No lumbar spinal tenderness and other (Tenderness to palpation of left lower back and left buttock without skin changes, ecchymosis, erythema or rash) Skin General skin exam: no rashes or lesions noted Neuro General: alert, awake, oriented x3 and no meningeal signs Cognition: normal cognition Speech: speech normal Gait: normal gait Motor: muscle tone normal throughout, strength 5/5 throughout and other (Negative Babinski bilaterally.) Sensory Exam: no sensory deficits noted DTR's: Rt Patellar: 1+, Lt Patellar: 1+, Rt Ankle: 1+ and Lt Ankle: 1+ Extrem General: normal to inspection, full ROM, normal capillary refill, no edema, no pedal edema and other (Bilateral DP/PT pulses intact.) Psych Appearance: grossly normal Mental Status: mental status grossly normal Speech and Movement: speech and movement normal Affect: normal affect Thought Process: normal Course Vital Signs Temperature 98.2 F 04/29/18 07:47 Pulse 92 H 04/29/18 07:47 Respiratory Rate 16 04/29/18 07:47 Blood Pressure 145/66 H 04/29/18 07:47 Pulse Oximetry 95 04/29/18 07:47 Temperature 98.2 F 04/29/18 07:47 Pulse 92 H 04/29/18 07:47 Respiratory Rate 16 04/29/18 07:47 Blood Pressure 145/66 H 04/29/18 07:47 Pulse Oximetry 95 04/29/18 07:47 Lab/Test Results Lab/Test Results: Laboratory Tests 04/29/18 08:55 WBC 5.12 RBC 3.76 L Hgb 10.3 L Hct 33.5 L MCV 89.1 MCH 27.4 MCHC 30.7 L RDW 16.0 H Plt Count 198 MPV 10.0 Immature Gran % 0.2 Neutrophils % 81.8 Lymphocytes % 13.5 Monocytes % 4.3 Eosinophils % 0.0 Basophils % 0.2 Absolute Neutrophils 4.19 Absolute Lymphocytes 0.69 L Absolute Monocytes 0.22 Absolute Eosinophils 0.00 Absolute Basophils 0.01
[2018-04-29 09:15] LABS: ALT 24 U/L (12-78); AST 15 U/L (15-37); Albumin 3.2 g/dL (3.4-5.0); Alkaline Phosphatase 121 U/L (46-116); Anion Gap 10.4 mmol/L (3-11); BUN 12 mg/dL (7-18); Bilirubin, Total 0.3 mg/dL (0.2-1.0); CO2 25.6 mmol/L (21.0-32.0); CREATININE 0.83 mg/dL (0.55-1.02); Chloride 104 mmol/L (98-107); Glucose 219 mg/dL (70-100); Magnesium 1.6 mg/dL (1.8-2.4); Potassium 4.1 mmol/L (3.5-5.1); Sodium 140 mmol/L (136-145); Total Protein 7.7 g/dL (6.4-8.2)
[2018-04-29] MEDS: Diazepam 5 MG TAB PO (09:15)
[2018-04-29 09:19] LABS: Troponin I < 0.02 ng/mL (0.00-0.06)
[2018-04-29] MEDS: Normal Saline 1,000 ML 1000 ML IV (09:19)
[2018-04-29] MEDS: oxyCODONE 5 MG TAB 10 MG PO (09:35)
[2018-04-29 09:59] LABS: Bilirubin Negative (Negative); Blood Trace-lysed (Negative); Clarity Clear; Glucose 250 mg/dL (Negative); Ketones Negative (Negative); Leukocyte Esterase Negative (Negative); Nitrite Negative (Negative); Urobilinogen 0.2 EU/dL (Up TO 0.2); pH 6.5 (5-8)
[2018-04-29 10:13] LABS: Bacteria Rare HPF (Negative); C & S Indicated? No; Casts Negative LPF (Negative); Crystals Negative HPF (Negative); Epithelial Cells Few HPF (Negative); Mucus Negative (Negative); Other Cells Rare Renal (Negative); WBC 0-2 HPF (0-5)
[2018-04-29 12:03] VITALS: BP 129/53; PULSE 89; RESP 20; TEMP 37.1; O2SAT 96
[2018-04-29 12:20] LABS: INR 2.1 (1.0-3.5); Prothrombin Time 20.2 sec (9.3-10.8)
[2018-04-29] MEDS: Magnesium Oxide 400 MG TAB PO (12:29)
== END 2018-04-29 12:45 | disposition home or self-care (01) ==
PROVIDERS: Emergency Provider Physician Assistant; PCP Family Medicine
DX: M54.32 Sciatica, left side (principal); M54.5 Low back pain; G89.29 Other chronic pain; R53.83 Other fatigue; E83.42 Hypomagnesemia; E11.9 Type 2 diabetes mellitus without complications
CPT/HCPCS: 36415; 80053; 93005; 99284; 81003; 81015; 83735; 84484; 85025; 85610; 93010; 99285

== ENCOUNTER → 2018-05-14 09:27 | Outpatient (BNVA) | payer MEDICARE, SELFPAY | PROVIDERS: PCP Family Medicine; Referring Provider Family Medicine; Visit Provider Orthopaedic Surgery | DX: M79.672 Pain in left foot (principal); G89.29 Other chronic pain | CPT/HCPCS: 99212 ==

== ENCOUNTER 2018-05-14 10:31 | Outpatient (CLI) | payer MEDICARE, SELFPAY ==
[2018-05-14 11:58] LABS: ESR 46 MM/HR (0-30)
[2018-05-14 12:27] LABS: Uric Acid 5.6 mg/dL (2.6-6.0)
== END 2018-05-14 10:51 ==
LOC: LBO 10:32
PROVIDERS: PCP Family Medicine; Visit Provider Orthopaedic Surgery
DX: M79.672 Pain in left foot (principal); R22.42 Localized swelling, mass and lump, left lower limb
CPT/HCPCS: 36415; 85652; 99212; 84550

== ENCOUNTER 2018-06-04 07:07 | Outpatient (CLI) | payer MEDICARE, SELFPAY ==
[2018-06-04 08:54] LABS: INR 2.2 (1.0-3.5); Prothrombin Time 20.8 sec (9.3-10.8)
== END 2018-06-04 07:27 ==
PROVIDERS: PCP Family Medicine; Visit Provider Family Medicine
DX: I26.99 Other pulmonary embolism without acute cor pulmonale (principal); Z79.01 Long term (current) use of anticoagulants
CPT/HCPCS: 36415; 85610

== ENCOUNTER 2018-06-07 07:46 | Emergency (ER) | payer MEDICARE, SELFPAY ==
[2018-06-07 08:11] VITALS: BP 106/67; PULSE 91; RESP 18; TEMP 36.8; O2SAT 92
[2018-06-07 08:45] LABS: Abs Immature Grans 0.03 k/cumm (0.0-0.09); Absolute Basophil Count 0.01 k/cumm (0.0-0.2); Absolute Eosinophil Count 0.11 k/cumm (0.0-0.7); Absolute Lymphocyte Count 1.11 k/cumm (1.2-3.4); Absolute Monocyte Count 0.68 k/cumm (0.11-0.7); Absolute Neutrophil Count 6.37 k/cumm (1.2-6.7); Basophils % 0.1; Eosinophils % 1.3; HCT 30.7 % (36.0-46.0); HGB 9.6 g/dL (12.0-15.5); Immature Grans % 0.4; Lymphocytes % 13.4; Mean Corp. HGB Concentration 31.3 g/dL (32.0-36.0); Mean Corpuscular Volume 86.5 fL (80-95); Mean Platelet Volume 9.9 fL (8.0-11.0); Monocytes % 8.2; Neutrophils % 76.6; Platelet Count 228 x1000/uL (130-400); RBC 3.55 m/cumm (4.00-5.20); RBC Distribution Width 16.5 % (11.7-14.6); White Blood Cell Count 8.31 k/cumm (4.4-10.8)
[2018-06-07 09:03] LABS: ALT 30 U/L (12-78); AST 28 U/L (15-37); Albumin 2.6 g/dL (3.4-5.0); Alkaline Phosphatase 128 U/L (46-116); BUN 11 mg/dL (7-18); Bilirubin, Total 0.5 mg/dL (0.2-1.0); CREATININE 0.93 mg/dL (0.55-1.02); Calcium 9.2 mg/dL (8.5-10.1); Chloride 97 mmol/L (98-107); Glucose 113 mg/dL (70-100); Potassium 4.3 mmol/L (3.5-5.1); Sodium 135 mmol/L (136-145); Total Protein 7.5 g/dL (6.4-8.2); Troponin I < 0.02 ng/mL (0.00-0.06)
[2018-06-07] MEDS: Normal Saline 1,000 ML 1000 ML IV (09:05)
[2018-06-07 09:09] LABS: PTT Activated 52.3 sec (21.0-31.4); Prothrombin Time 39.2 sec (9.3-10.8)
[2018-06-07 09:28] LABS: D-Dimer 1163 ng/mlFEU (<500); INR 4.2 (1.0-3.5)
--- NOTE | 2018-06-07 09:47 | DI.CT_ITS ---
SYMPTOMS/DIAGNOSIS: CHEST PAIN, SHORTNESS OF BREATH, ELEVATED D DIMER, MILD HYPOXEMIA CT ANGIOGRAM CHEST: CT angiography was performed with multi slice acquisition and multi planar and 3D reconstruction. CT Angiography of the chest was performed with bolus infusion of 100 cc's of Omnipaque 350. There is note made of hepatic steatosis. Imaging through visualized portions of the upper abdomen is otherwise unremarkable. No evidence of pulmonary embolic disease. No thoracic aortic dissection or aneurysm. Unremarkable appearance of major aortic branches. The tracheobronchial tree appears intact. There are diffuse predominantly upper to mid lung field ground glass and reticular opacities bilaterally. No gross consolidation seen. No pleural effusion seen. No mass lesion identified. No gross mediastinal or hilar adenopathy. CONCLUSION: No evidence of pulmonary embolic disease. There are diffuse predominantly upper to mid lung field ground glass and reticular opacities. The differential diagnosis would include viral or atypical infectious process, eosinophilic pneumonia, hypersensitivity pneumonia, or idiopathic inflammatory interstitial pneumonia. Close clinical follow up and repeat chest CT following treatment recommended.
[2018-06-07] MEDS: Omnipaque 350 MG/ML 100 ML BTL IJ (10:26)
--- NOTE | 2018-06-07 12:47 | ED.GENADUL_ITS ---
Discharge Plan Disposition Patient Disposition: HOME Condition: Good Discharge Details Chief Complaint: Chest Pain Clinical Impression: Pneumonitis, Acid reflux Primary Care Provider: Jerman Powell ED Provider: Scout Freeman Home Meds and New Rx's Prescriptions: New prednisone 50 MG tablet 50 mg PO DAILY Qty: 5 RF: 0 doxycycline hyclate 100 mg capsule 100 mg PO BID Qty: 14 RF: 0 omeprazole 40 mg capsule,delayed release(DR/EC) 40 mg PO DAILY Qty: 30 RF: 0 sucralfate [Carafate] 1 gram tablet 1 gm PO ONCE Qty: 30 RF: 0 No Action prednisone 20 mg tablet 40 mg PO DAILY Qty: 14 RF: 0 gabapentin 600 mg tablet 600 mg PO TID Qty: 90 RF: 3 baclofen 10 mg tablet 20 mg PO HS Qty: 90 RF: 4 NARCOTIC CONTRACT RF: 0 Elbow Sleeve 1 DAILY Qty: 1 RF: 0 Lactobacillus acidophilus [Probiotic] 1 EACH capsule 1 ea PO DAILY RF: 0 aspirin 81 MG tablet,chewable 81 mg PO DAILY RF: 0 loperamide 2 MG tablet 2 mg PO QID PRNQty: 60 RF: 3 chlorhexidine gluconate 473 ML mouthwash 2 ml Mucous Membrane BID Qty: 473 RF: 2 lancets [[employer]IncTouch UltraSoft Lancets] 1 EACH misc 1 ea Miscellaneous BID Qty: 100 RF: 4 metformin 1,000 MG tablet 1,000 mg PO BID Qty: 180 RF: 4 omeprazole 20 MG capsule,delayed release(DR/EC) 20 mg PO DAILY Qty: 90 RF: 4 magnesium oxide 400 MG tablet 2 tab PO TID Qty: 540 RF: 4 dapsone 25 MG tablet 2 tab PO BID Qty: 240 RF: 6 triamcinolone acetonide 60 ML lotion Topical HS Qty: 60 RF: 3 triamcinolone acetonide 15 GM cream Topical BID Qty: 30 RF: 3 warfarin [Coumadin] 5 mg tablet 5 mg PO DIRECTED BY Qty: 150 RF: 3 blood sugar diagnostic [[employer]Touch Ultra Test] strip 1 ea Miscellaneous BID Qty: 100 RF: 5 amitriptyline 25 mg tablet 25 mg PO DAILY Qty: 90 RF: 4 hydrocodone-acetaminophen 10-325 mg tablet 1 tab PO Q6H PRN (Reason: pain) Qty: 120 RF: 0 nystatin 100,000 unit/mL suspension 1 ml PO QID 14 Days Qty: 60 RF: 3 diazepam 5 mg tablet 5 mg PO TID PRN (Reason: muscle spasm) Qty: 10 RF: 0 Discharge Instructions Instructions: Gastroesophageal Reflux Disease (ED) Additional Instructions: Please take the medication as directed, if you notice any worsening of your symptoms, or any new symptoms such as vomiting, diarrhea, fever, chills, shortness of breath, chest pain, numbness, weakness, or fainting , please return immediately to the emergency department for reevaluation. Please follow up with your primary care provider as soon as possible for reassessment and reevaluation. As always, it was a pleasure participating in your medical care today. Referrals: Jerman Powell MD [Primary Care Provider] - Discharge Data Discharge Date/Time-TO BE ENTERED AT DEPARTURE: 06/07/18 13:02 Medical Decision Making This is a 62-year-old female with a past medical history of tobacco abuse, diabetes, Coumadin use secondary to protein C deficiency and history of blood clots. She presents today for burning in her chest for the last 2 weeks, worse when she lies flat, worse with spicy foods, however she does have a pleuritic component with it as well as symptoms of shortness of breath over the last few weeks. Physical exam demonstrates minimal crackles in the lung bases, but no other significant abnormalities. No other concerning red flags. Vital signs are stable, with no significant hypoxemia. Patient's laboratory workup did demonstrate an elevated d-dimer. CT angiogram was ordered and demonstrates no evidence of pulmonary embolism however there is notable groundglass and reticular opacities throughout, concerning for eosinophilic reactive pneumonia. Patient does not have any significant white count, or any signs of severe infection, no systemic symptoms of fever, tachycardia, or bandemia. Patient was also given a GI cocktail and she had complete resolution of the burning symptoms in her chest. Feel that she has 2 components for her symptoms, component of reflux, as well as an associated atypical reactive pneumonia that is the cause of her shortness of breath. Troponin and EKG are benign. I do not feel that her current clinical picture and symptoms correlate with a cardiac etiology. We will treat the reactive pneumonia with steroids and azithromycin, we will treat the reflux with enhanced current medications she has not been taking any of her regular medications for her reflux. Had a long discussion with the patient regarding red flags which to return, foods for which to avoid, the importance of close follow-up with her primary care provider. I have extensively reviewed the treatment plan and discharge instructions with the patient and their family. I have addressed all patient concerns at this time. The patient and family was made aware of what symptoms to monitor for that would warrant a return to the emergency department. Discussed the plan with the patient and family, they demonstrate verbal understanding and agreement with our assessment and plan at this time. 7: 53 AM Rate 110, IN 144, QTc 444, QRS 86, sinus tachycardia, no ST elevations or depressions, no Q waves. No signs of right heart strain. CONCLUSION: No evidence of pulmonary embolic disease. There are diffuse predominantly upper to mid lung field ground glass and reticular opacities. The differential diagnosis would include viral or atypical infectious process, eosinophilic pneumonia, hypersensitivity pneumonia, or idiopathic inflammatory interstitial pneumonia. Close clinical follow up and repeat chest CT following treatment recommended. HPI General Date/Time Provider Initiated Documentation: 06/07/18 08:12 . HPI Narrative: This is a 62-year-old female with a past medical history of diabetes mellitus, tobacco use, GERD, a history of blood clots for which she takes Coumadin, and a protein C deficiency. She presents today with 2 weeks of burning in her chest, worse when she lies down flat, worse with spicy foods. However there is also a pleuritic component which makes her symptoms worse as well. She does admit to shortness of breath and cough over the last few weeks. She denies any chest pain, she denies any chest pressure. She does admit to some mild nausea. Her shortness of breath is made worse with exertion. She has no associated arm neck or shoulder pain. She denies any tearing sensation in her chest. Aside for the protein C deficiency, the patient denies PE risk factors such as recent long car rides, immobilization, recent surgery, morbid obesity, exogenous estrogen and hemoptysis, history of cancer. Patient denies any significant cardiac history. The patient has no other complaints at this time. No other modifying factors at this time. Past surgical history is positive for . Related Data Home Medications Medication Instructions Recorded Confirmed Narcotic Contract 03/02/14 05/28/18 Lactobacillus acidophilus 1 ea PO DAILY 07/04/16 05/28/18 [Probiotic] aspirin 81 mg PO DAILY tab.chew 03/20/17 05/28/18 loperamide 2 mg PO QID PRN #60 tab 06/19/17 05/28/18 chlorhexidine gluconate 2 ml MUCOUS MEMBRANE BID #473 ml 07/24/17 05/28/18 lancets [OneTouch UltraSoft #100 ea 08/27/17 05/28/18 Lancets] metformin 1,000 mg PO BID #180 tab-cap 09/26/17 05/28/18 omeprazole 20 mg PO DAILY #90 tab-cap 11/22/17 05/28/18 magnesium oxide 2 tab PO TID #540 tab 11/23/17 05/28/18 dapsone 2 tab PO BID #240 tab-cap 12/04/17 05/28/18 triamcinolone acetonide 0 TOPICAL HS #60 ml 12/04/17 05/28/18 triamcinolone acetonide 0 TOPICAL BID #30 g 02/12/18 05/28/18 diazepam 5 mg PO TID PRN #10 tab 04/29/18 05/28/18 warfarin 5 mg tablet 5 mg PO DIRECTED BY #150 tab 05/06/18 05/28/18 blood sugar diagnostic strips #100 strip 05/07/18 05/28/18 amitriptyline 25 mg tablet 25 mg PO DAILY #90 tab-cap 05/09/18 05/28/18 hydrocodone 10 mg-acetaminophen 1 tab PO Q6H PRN #120 tab 05/09/18 05/28/18 325 mg tablet baclofen 10 mg tablet 20 mg PO HS #90 tab-cap 05/14/18 05/28/18 gabapentin 600 mg tablet 600 mg PO TID #90 tab 05/14/18 05/28/18 prednisone 20 mg tablet 40 mg PO DAILY #14 tab 05/28/18 05/28/18 nystatin 100,000 unit/mL oral 1 ml PO QID 14 Days #60 ml 06/04/18 suspension doxycycline hyclate 100 mg PO BID #14 cap 06/07/18 omeprazole 40 mg PO DAILY #30 cap 06/07/18 prednisone 50 mg PO DAILY #5 tab 06/07/18 sucralfate [Carafate] 1 gm PO ONCE #30 tab 06/07/18 Previous Rx's Medication Instructions Recorded chlorhexidine gluconate 2 ml MUCOUS MEMBRANE BID #473 ml 07/24/17 lancets [OneTouch UltraSoft #100 ea 08/27/17 Lancets] metformin 1,000 mg PO BID #180 tab-cap 09/26/17 omeprazole 20 mg PO DAILY #90 tab-cap 11/22/17 magnesium oxide 2 tab PO TID #540 tab 11/23/17 dapsone 2 tab PO BID #240 tab-cap 12/04/17 diazepam 5 mg PO TID PRN #10 tab 04/29/18 warfarin 5 mg tablet 5 mg PO DIRECTED BY #150 tab 05/06/18 blood sugar diagnostic strips #100 strip 05/07/18 amitriptyline 25 mg tablet 25 mg PO DAILY #90 tab-cap 05/09/18 hydrocodone 10 mg-acetaminophen 1 tab PO Q6H PRN #120 tab 05/09/18 325 mg tablet baclofen 10 mg tablet 20 mg PO HS #90 tab-cap 05/14/18 gabapentin 600 mg tablet 600 mg PO TID #90 tab 05/14/18 prednisone 20 mg tablet 40 mg PO DAILY #14 tab 05/28/18 nystatin 100,000 unit/mL oral 1 ml PO QID 14 Days #60 ml 06/04/18 suspension doxycycline hyclate 100 mg PO BID #14 cap 06/07/18 omeprazole 40 mg PO DAILY #30 cap 06/07/18 prednisone 50 mg PO DAILY #5 tab 06/07/18 sucralfate [Carafate] 1 gm PO ONCE #30 tab 06/07/18 Allergies Allergy/AdvReac Type Severity Reaction Status Date / Time rizatriptan benzoate Allergy Severe Unverified 05/28/18 15:21 [From Maxalt] azithromycin Allergy Intermediate SOB Unverified 05/28/18 15:21 sulfamethoxazole Allergy Intermediate Unverified 05/28/18 15:21 trimethoprim [From Bactrim] Allergy Intermediate Unverified 05/28/18 15:21 venlafaxine Allergy Intermediate Unverified 05/28/18 15:21 adhesive Allergy RASH Unverified 05/28/18 15:21 wheat Allergy SKIN RASH Unverified 05/28/18 15:21 sertraline AdvReac Intermediate sweating Unverified 05/28/18 15:21 tramadol AdvReac Intermediate Nausea Unverified 05/28/18 15:21 amoxicillin AdvReac GI UPSET Unverified 05/28/18 15:21 General Stated Complaint: Chest Pain JOSE JUAN: 3 Review of Systems Review of Systems All systems reviewed & are unremarkable except as noted in HPI and below Exam Narrative Exam Narrative: 1.Const: Well-nourished, Well-developed, appearing stated age 2.Eyes: PERRL, no conjunctival injection, and symmetrical lids. 3.ENT: Atraumatic external nose and ears. Moist MM. Neck: Symmetric, trachea midline, No thyromegaly. 4.CVS: +S1/S2, No murmurs or gallops. Peripheral pulses 2+ and equal in all extremities. Brisk capillary refill in all extremities. 5.RESP: Unlabored respiratory effort. Minimal crackles in the bases, no significant wheezes or rhonchi. 6.GI: Soft, Nontender/Nondistended, No hepatosplenomegaly. No guarding or rebound. 7.MSK: Normocephalic/Atraumatic, Extremities w/o deformity or ttp No cyanosis or clubbing, Normal movement of all extremities. No calf tenderness, negative Homans sign. 8.Skin: Warm, Dry. No rashes or lesions. 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 Sensation grossly intact, no focal neurologic deficits. 10.Psych: (AAO) x3. Appropriate mood and affect Course Vital Signs Temperature 36.8 C 06/07/18 08:11 Pulse 91 H 06/07/18 08:11 Respiratory Rate 18 06/07/18 08:11 Blood Pressure 106/67 06/07/18 08:11 Pulse Oximetry 92 L 06/07/18 08:11 Temperature 36.8 C 06/07/18 08:11 Temperature Source Temporal Artery Scan 06/07/18 08:11 Pulse 91 H 06/07/18 08:11 Respiratory Rate 18 06/07/18 08:11 Respiratory Effort 06/07/18 08:14 Respiratory Depth Normal 06/07/18 08:14 Respiratory Pattern Normal 06/07/18 08:14 Blood Pressure 106/67 06/07/18 08:11 Blood Pressure Position Supine 06/07/18 08:11 Pulse Oximetry 92 L 06/07/18 08:11 Oxygen Delivery Method Room Air 06/07/18 08:11 Oxygen Flow Rate 0 06/07/18 08:11 Pain Level 2 06/07/18 08:11 Lab/Test Results Lab/Test Results: Laboratory Tests Range/Units 06/07/18 06/07/18 06/07/18 08:38 08:38 08:38 WBC (4.4-10.8) k/cumm 8.31 RBC (4.00-5.20) m/cumm 3.55 L Hgb (12.0-15.5) g/dL 9.6 L Hct (36.0-46.0) % 30.7 L MCV (80-95) fL 86.5 MCH (27.0-33.0) pg 27.0 MCHC (32.0-36.0) g/dL 31.3 L RDW (11.7-14.6) % 16.5 H Plt Count (130-400) x1000/uL 228 MPV (8.0-11.0) fL 9.9 Immature Gran % 0.4 Neutrophils % 76.6 Lymphocytes % 13.4 Monocytes % 8.2 Eosinophils % 1.3 Basophils % 0.1 Absolute Neutrophils (1.2-6.7) k/cumm 6.37 Absolute Lymphocytes (1.2-3.4) k/cumm 1.11 L Absolute Monocytes (0.11-0.7) k/cumm 0.68 Absolute Eosinophils (0.0-0.7) k/cumm 0.11 Absolute Basophils (0.0-0.2) k/cumm 0.01 PT (9.3-10.8) sec 39.2 H INR (1.0-3.5) 4.2 H* APTT (21.0-31.4) sec 52.3 H D-Dimer (<500) ng/mlFEU 1163 H Sodium (136-145) mmol/L 135 L Potassium (3.5-5.1) mmol/L 4.3 Chloride (98-107) mmol/L 97 L Carbon Dioxide (21.0-32.0) mmol/L 26.0 Anion Gap (3-11) mmol/L 12.0 H BUN (7-18) mg/dL 11 Creatinine (0.55-1.02) mg/dL 0.93 Estimated GFR/1.73 m2 (mL/min/1.73m2) >= 60.00 Glucose (70-100) mg/dL 113 H Calcium (8.5-10.1) mg/dL 9.2 Total Bilirubin (0.2-1.0) mg/dL 0.5 AST (15-37) U/L 28 ALT (12-78) U/L 30 Alkaline Phosphatase (46-116) U/L 128 H Troponin I (0.00-0.06) ng/mL < 0.02 Total Protein (6.4-8.2) g/dL 7.5 Albumin (3.4-5.0) g/dL 2.6 L
[2018-06-07 13:01] VITALS: BP 133/80; PULSE 87; RESP 18; TEMP 36.8; O2SAT 99
== END 2018-06-07 13:02 | disposition home or self-care (01) ==
PROVIDERS: Emergency Provider Student in an Organized Health Care Education/Training Program; PCP Family Medicine
DX: K21.9 Gastro-esophageal reflux disease without esophagitis (principal); J18.9 Pneumonia, unspecified organism; R79.1 Abnormal coagulation profile; T45.515A Adverse effect of anticoagulants, initial encounter; E11.9 Type 2 diabetes mellitus without complications; Z79.84 Long term (current) use of oral hypoglycemic drugs; Z79.01 Long term (current) use of anticoagulants; F17.210 Nicotine dependence, cigarettes, uncomplicated
CPT/HCPCS: 36415; 71275; 80053; 93005; 99285; 84484; 85025; 85379; 85610; 85730; 93010; J3490

== ENCOUNTER 2018-08-27 11:18 | Outpatient (CLI) | payer MEDICARE, SELFPAY ==
[2018-08-27 12:17] LABS: INR 1.6 (0.9-1.1); Prothrombin Time 16.3 sec (9.3-11.0)
== END 2018-08-27 11:38 ==
PROVIDERS: PCP Family Medicine; Visit Provider Family Medicine
DX: I26.99 Other pulmonary embolism without acute cor pulmonale (principal); Z79.01 Long term (current) use of anticoagulants
CPT/HCPCS: 36415; 85610

== ENCOUNTER 2018-09-11 07:06 | Outpatient (CLI) | payer MEDICARE, SELFPAY ==
[2018-09-11 12:10] LABS: INR 1.8 (0.9-1.1); Prothrombin Time 17.9 sec (9.3-11.0)
== END 2018-09-11 07:26 ==
PROVIDERS: PCP Family Medicine; Visit Provider Family Medicine
DX: I26.99 Other pulmonary embolism without acute cor pulmonale (principal); Z79.01 Long term (current) use of anticoagulants
CPT/HCPCS: 36415; 85610

== ENCOUNTER 2018-10-01 09:22 | Outpatient (CLI) | payer MEDICARE, SELFPAY ==
[2018-10-01 10:10] LABS: Prothrombin Time 19.6 sec (9.3-11.0)
[2018-10-01 10:16] LABS: INR 1.9 (0.9-1.1)
[2018-10-01 10:24] LABS: Magnesium 1.8 mg/dL (1.8-2.4)
== END 2018-10-01 09:42 ==
PROVIDERS: PCP Family Medicine; Visit Provider Family Medicine
DX: E83.42 Hypomagnesemia (principal); I26.99 Other pulmonary embolism without acute cor pulmonale; Z79.01 Long term (current) use of anticoagulants
CPT/HCPCS: 36415; 83735; 85610

== ENCOUNTER 2018-10-05 16:21 | Emergency (ER) | payer MEDICARE, SELFPAY ==
[2018-10-05 16:26] VITALS: BP 139/32; PULSE 79; RESP 16; TEMP 36.4; O2SAT 95
--- NOTE | 2018-10-05 16:49 | DI.RAD_ITS ---
SYMPTOM/DIAGNOSIS: COUGH, SOB FRONTAL AND LATERAL CHEST: Comparison is made with 12/11/17. The heart is normal in size. The lungs are clear. The mediastinal structures and pleura appear intact. CONCLUSION: Normal chest.
--- NOTE | 2018-10-05 16:49 | ED.GENADUL_ITS ---
Discharge Plan Disposition Patient Disposition: HOME Condition: Stable Discharge Details Chief Complaint: RespSymp Clinical Impression: Infection, respiratory tract, Smoker Primary Care Provider: Jerman Powell ED Provider: Dante Ku Home Meds and New Rx's Prescriptions: New doxycycline hyclate 100 mg capsule 100 mg PO BID Qty: 14 RF: 0 Continued hydrocodone-acetaminophen 10-325 mg tablet 1 tab PO Q6H MDD 4 tabs PRN (Reason: pain) Qty: 120 RF: 0 magnesium oxide 400 mg (241.3 mg magnesium) tablet 1,200 mg PO TID Qty: 270 RF: 4 metformin 1,000 mg tablet 1,000 mg PO BID Qty: 180 RF: 4 warfarin [Coumadin] 5 mg tablet See Rx Instructions PO .COMPLEX Qty: 0 RF: 3 NARCOTIC CONTRACT RF: 0 Elbow Sleeve 1 DAILY Qty: 1 RF: 0 Probiotic 1 EACH capsule 1 ea PO DAILY RF: 0 aspirin 81 MG tablet,chewable 81 mg PO DAILY RF: 0 loperamide 2 MG tablet 2 mg PO QID PRNQty: 60 RF: 3 chlorhexidine gluconate 473 ML mouthwash 2 ml Mucous Membrane BID Qty: 473 RF: 2 lancets [OneTouch UltraSoft Lancets] 1 EACH misc 1 ea Miscellaneous BID Qty: 100 RF: 4 dapsone 25 MG tablet 2 tab PO BID Qty: 240 RF: 6 triamcinolone acetonide 60 ML lotion Topical HS Qty: 60 RF: 3 triamcinolone acetonide 15 GM cream Topical BID Qty: 30 RF: 3 OneTouch Ultra Test strip 1 ea Miscellaneous BID Qty: 100 RF: 5 amitriptyline 25 mg tablet 25 mg PO DAILY Qty: 90 RF: 4 baclofen 10 mg tablet 20 mg PO HS Qty: 90 RF: 4 omeprazole 20 mg capsule,delayed release(DR/EC) 20 mg PO DAILY Qty: 90 RF: 4 gabapentin 300 mg capsule 600 mg PO TID Qty: 540 RF: 4 Discharge Instructions Instructions: Pneumonia (ED) Additional Instructions: Please take full course of antibiotics and follow-up with your primary care provider if not improving over this next week. Please stay well-hydrated during illness and take your other medications as prescribed. You may use your inhaler 1-2 puffs every 4 hours as needed for continued shortness of breath. Referrals: Jerman Powell MD [Primary Care Provider] - 5 days (if not improving) Discharge Data Discharge Date/Time-TO BE ENTERED AT DEPARTURE: 10/05/18 19:09 Medical Decision Making Patient presenting to the emergency department for chief complaint of cough and shortness of breath. Patient states that this started 2 weeks ago with nasal congestion and sore throat that then progressed into laryngitis. Symptoms then seemed to resolve but over the past week or so she has noticed a worsening cough, congestion, and shortness of breath. Patient is on chronic [place] for pain so is unaware of any fever but she does state that she has felt chilled at times. Patient is a heavy smoker. Physical exam shows a comfortable 62-year-old female patient that shows no acute signs of respiratory distress. Lung sounds are clear with diminished in the bilateral bases. Vital signs are stable without tachycardia, hypoxia, fever or hypotension noted. Patient does sound nasally congested but otherwise HEENT exam is unremarkable. Given duration of symptoms and patient being a heavy smoker concern for pneumonia so plan to do radiological imaging of the chest, give DuoNeb to see if that helps patient's symptoms and reassess. Patient denies any pain or discomfort at this time. Labs were reviewed and show no significant leukocytosis, therapeutic INR with patient on Coumadin, and otherwise nondiagnostic labs. Chest x-ray reviewed and shows no acute findings. Patient reassessed and did state some improvement of dyspnea after DuoNeb and patient did have improvement in lung sounds but still some diminished lung sounds in bases. Given duration of symptoms and patient stating worsening productive cough patient was prescribed doxycycline which she says she has been on in the past and is not had any issues with her INR level or her Coumadin. There is concern for secondary pneumonia from initial viral illness but this also could be continued post viral cough. Patient was given albuterol inhaler with spacer and instructed on use and was informed to take antibiotics as prescribed until fully complete. Return precautions were discussed. After discussion of diagnosis and plan of care patient has no further needs, questions, or concerns and states clear understanding to return to the emergency department for any worsening symptoms. HPI General Mode of arrival: ambulatory . Date/Time Provider Initiated Documentation: 10/05/18 16:23 . Limitations to Documentation: no limitations . Information obtained by: patient, RN notes reviewed and old records reviewed . History of Present Illness 62 year old F presents to the emergency department with the chief complaint of Cough, shortness of breath, Quality is described as other (denies pain), Patient started experiencing this week(s) (2) No relieving factors improve symptom(s), No exacerbating factors reported . Patient notes no other symptoms.. Patient did receive the following treatments prior to arrival, none Related Data Home Medications Medication Instructions Recorded Confirmed Narcotic Contract 03/02/14 09/12/18 Probiotic 1 ea PO DAILY 07/04/16 09/12/18 aspirin 81 mg PO DAILY tab.chew 03/20/17 09/12/18 loperamide 2 mg PO QID PRN #60 tab 06/19/17 09/12/18 chlorhexidine gluconate 2 ml MUCOUS MEMBRANE BID #473 ml 07/24/17 09/12/18 lancets [OneTouch UltraSoft #100 ea 08/27/17 09/12/18 Lancets] dapsone 2 tab PO BID #240 tab-cap 12/04/17 09/12/18 triamcinolone acetonide 0 TOPICAL HS #60 ml 12/04/17 09/12/18 triamcinolone acetonide 0 TOPICAL BID #30 g 02/12/18 09/12/18 blood sugar diagnostic strips #100 strip 05/07/18 09/12/18 amitriptyline 25 mg tablet 25 mg PO DAILY #90 tab-cap 05/09/18 09/12/18 baclofen 10 mg tablet 20 mg PO HS #90 tab-cap 08/22/18 09/12/18 hydrocodone 10 mg-acetaminophen 1 tab PO Q6H PRN #120 tab MDD 4 09/12/18 09/12/18 325 mg tablet tabs magnesium oxide 400 mg (241.3 mg 1,200 mg PO TID #270 tab 09/12/18 09/12/18 magnesium) tablet metformin 1,000 mg tablet 1,000 mg PO BID #180 tab-cap 09/12/18 09/12/18 warfarin 5 mg tablet See Rx Instructions PO .COMPLEX #0 09/12/18 09/12/18 tab omeprazole 20 mg capsule,delayed 20 mg PO DAILY #90 tab-cap 09/16/18 release gabapentin 300 mg capsule 600 mg PO TID #540 cap 09/23/18 doxycycline hyclate 100 mg PO BID #14 cap 10/05/18 Previous Rx's Medication Instructions Recorded chlorhexidine gluconate 2 ml MUCOUS MEMBRANE BID #473 ml 07/24/17 lancets [OneTouch UltraSoft #100 ea 08/27/17 Lancets] dapsone 2 tab PO BID #240 tab-cap 12/04/17 blood sugar diagnostic strips #100 strip 05/07/18 amitriptyline 25 mg tablet 25 mg PO DAILY #90 tab-cap 05/09/18 baclofen 10 mg tablet 20 mg PO HS #90 tab-cap 08/22/18 hydrocodone 10 mg-acetaminophen 1 tab PO Q6H PRN #120 tab MDD 4 09/12/18 325 mg tablet tabs magnesium oxide 400 mg (241.3 mg 1,200 mg PO TID #270 tab 09/12/18 magnesium) tablet metformin 1,000 mg tablet 1,000 mg PO BID #180 tab-cap 09/12/18 warfarin 5 mg tablet See Rx Instructions PO .COMPLEX #0 09/12/18 tab omeprazole 20 mg capsule,delayed 20 mg PO DAILY #90 tab-cap 09/16/18 release gabapentin 300 mg capsule 600 mg PO TID #540 cap 09/23/18 doxycycline hyclate 100 mg PO BID #14 cap 10/05/18 Allergies Allergy/AdvReac Type Severity Reaction Status Date / Time rizatriptan benzoate Allergy Severe Unverified 10/05/18 16:26 [From Maxalt] azithromycin Allergy Intermediate SOB Unverified 10/05/18 16:26 sulfamethoxazole Allergy Intermediate Unverified 10/05/18 16:26 trimethoprim [From Bactrim] Allergy Intermediate Unverified 10/05/18 16:26 venlafaxine Allergy Intermediate Unverified 10/05/18 16:26 adhesive Allergy RASH Unverified 10/05/18 16:26 wheat Allergy SKIN RASH Unverified 10/05/18 16:26 sertraline AdvReac Intermediate sweating Unverified 10/05/18 16:26 tramadol AdvReac Intermediate Nausea Unverified 10/05/18 16:26 amoxicillin AdvReac GI UPSET Unverified 10/05/18 16:26 General Stated Complaint: RespSymp JOSE JUAN: 3 Review of Systems Constitutional Denies body ache(s), Denies chills, Denies fever(s), Denies headache(s) and Reports malaise Eyes Denies eye discharge ENT Reports as per HPI, Denies ear discharge, Denies otalgia, Denies headache(s), Reports nasal congestion, Reports nasal discharge, Denies neck pain, Denies sinus pain, Reports sinus pressure, Reports sore throat and Denies throat swelling Cardiovascular Denies chest pain and Reports dyspnea Respiratory Reports cough and Reports dyspnea Musculoskeletal Denies joint swelling and Denies neck pain Integumentary/Breasts Denies rash Neurologic Denies headache(s) Allergic/Immunologic Denies throat swelling [facility] Medical History Chronic pain (Chronic) DVT (deep venous thrombosis) (Chronic) Diabetes mellitus (Chronic) GERD (gastroesophageal reflux disease) (Chronic) Pulmonary embolism (Chronic) Surgical History section Family History Mother Personal history of malignant neoplasm Father Asthma Sister No problems noted. Brother No problems noted. Social History household members: spouse current occupational status: disabled what type of physical activity do you participate in: none Smoking and Tabacco status: Current every day alcohol intake: never Exam Const General: cooperative, comfortable and no acute distress Orientation: alert and awake [facility] Head: normal to inspection, normocephalic and atraumatic Ears: hearing grossly normal bilaterally and TM's normal bilaterally General nose exam: external nose normal Face and sinus: normal facial exam, sinuses nontender and no erythema Mouth: oral mucosae normal, no drooling, no muffled voice and no trismus Throat: posterior oropharynx normal, tonsils normal and uvula midline Neck Neck: normal visual inspection, full ROM, no lymphadenopathy, no meningeal signs, trachea midline and supple Resp Effort & Inspection: normal respiratory effort, able to speak in complete sentences and cough Quality of cough: dry Auscultation: clear to auscultation bilaterally and diminished lung sounds Cardio Rate: regular rate Rhythm: regular rhythm Heart Sounds: S1 normal, S2 normal, normal S1 and S2, no click, no gallops, no murmurs and no rubs Skin General skin exam: no rashes or lesions noted and dry skin (warm) Neuro General: alert, awake, oriented x3, gait normal and moves all extremities Cognition: normal cognition Speech: speech normal Course Vital Signs Temperature 36.4 C L 10/05/18 16:26 Pulse 79 10/05/18 16:26 Respiratory Rate 16 10/05/18 16:26 Blood Pressure 139/32 L 10/05/18 16:26 Pulse Oximetry 95 10/05/18 16:26 Temperature 36.4 C L 10/05/18 16:26 Temperature Source Temporal Artery Scan 10/05/18 16:26 Pulse 79 10/05/18 16:26 Respiratory Rate 16 10/05/18 16:26 Respiratory Effort 10/05/18 16:26 Blood Pressure 139/32 L 10/05/18 16:26 Pulse Oximetry 95 10/05/18 16:26 Oxygen Delivery Method Room Air 10/05/18 16:26 Oxygen Flow Rate 0 10/05/18 16:26
[2018-10-05 16:53] VITALS: PULSE 79; RESP 16; O2SAT 95
[2018-10-05] MEDS: Albuterol/Ipratropium 3 ML UPD VIAL UPD (16:53)
[2018-10-05 17:39] LABS: Abs Immature Grans 0.01 k/cumm (0.0-0.09); Absolute Basophil Count 0.01 k/cumm (0.0-0.2); Absolute Eosinophil Count 0.08 k/cumm (0.0-0.7); Absolute Lymphocyte Count 1.31 k/cumm (1.2-3.4); Absolute Monocyte Count 0.49 k/cumm (0.11-0.7); Absolute Neutrophil Count 2.79 k/cumm (1.2-6.7); Basophils % 0.2; Eosinophils % 1.7; HCT 32.1 % (36.0-46.0); HGB 9.5 g/dL (12.0-15.5); Immature Grans % 0.2; Lymphocytes % 27.9; Mean Corp. HGB Concentration 29.6 g/dL (32.0-36.0); Mean Corpuscular Hemoglobin 26.1 pg (27.0-33.0); Mean Corpuscular Volume 88.2 fL (80-95); Mean Platelet Volume 9.1 fL (8.0-11.0); Monocytes % 10.4; Neutrophils % 59.6; Platelet Count 180 x1000/uL (130-400); RBC 3.64 m/cumm (4.00-5.20); RBC Distribution Width 17.5 % (11.7-14.6); White Blood Cell Count 4.69 k/cumm (4.4-10.8)
[2018-10-05 17:50] LABS: ALT 30 U/L (12-78); AST 20 U/L (15-37); Albumin 3.4 g/dL (3.4-5.0); Alkaline Phosphatase 135 U/L (46-116); Anion Gap 8.5 mmol/L (3-11); BUN 12 mg/dL (7-18); Bilirubin, Total 0.2 mg/dL (0.2-1.0); CO2 29.5 mmol/L (21.0-32.0); CREATININE 1.01 mg/dL (0.55-1.02); Chloride 102 mmol/L (98-107); Estimated GFR 55.72 (mL/min/1.73m2); Glucose 149 mg/dL (70-100); Potassium 3.9 mmol/L (3.5-5.1); Sodium 140 mmol/L (136-145)
[2018-10-05 17:53] LABS: INR 2.4 (0.9-1.1); PTT Activated 34.1 sec (21.0-31.4)
--- NOTE | 2018-10-05 17:53 | DI.VRAD_ITS ---
EXAM: XR Chest, 2 Views EXAM DATE/TIME: 10/05/2018 5:24 PM CLINICAL HISTORY: 62 years old, female; Signs and symptoms; Other: Cough, SOB TECHNIQUE: XR of the chest, 2 views. COMPARISON: CR CHEST 2 VIEWS PA,LAT 12/11/2017 9:46 AM FINDINGS: Lungs: Unremarkable. No consolidation. Pleural space: Unremarkable. No pleural effusion. No pneumothorax. Heart/Mediastinum: Unremarkable. No cardiomegaly. Bones/joints: Unremarkable. IMPRESSION: No acute findings. Dictated and Authenticated by: Bee Stone MD. Ordering:DALE Howell MD
[2018-10-05] MEDS: Doxycycline Hyclate 100 MG CAP PO (18:41)
--- NOTE | 2018-10-05 18:50 | RESPIRATORY ---
10/05/2018-Educated Pt on MDI and Spacer use. Pt was able to reproduce teaching.Pt has a great insp. breath hold.
[2018-10-05] MEDS: Albuterol HFA 8 GM 60 PUFF INH IH (18:53)
[2018-10-05] MEDS: Inhaler, Assist Device 1 EACH MC (18:54)
== END 2018-10-05 19:09 | disposition home or self-care (01) ==
PROVIDERS: Emergency Provider Nurse Practitioner Family; PCP Family Medicine
DX: J06.9 Acute upper respiratory infection, unspecified (principal); F17.210 Nicotine dependence, cigarettes, uncomplicated; E11.9 Type 2 diabetes mellitus without complications; Z79.84 Long term (current) use of oral hypoglycemic drugs; Z79.01 Long term (current) use of anticoagulants
CPT/HCPCS: 36415; 80053; 94640; 99284; 71046; 85025; 85610; 85730; J7620

== ENCOUNTER 2018-12-06 07:26 | Outpatient (CLI) | payer MEDICARE, SELFPAY ==
[2018-12-06 10:37] LABS: INR 2.7 (0.9-1.1)
== END 2018-12-06 07:46 ==
PROVIDERS: PCP Family Medicine; Visit Provider Family Medicine
DX: I26.99 Other pulmonary embolism without acute cor pulmonale (principal); Z79.01 Long term (current) use of anticoagulants
CPT/HCPCS: 36415; 85610

== ENCOUNTER 2019-01-07 01:18 | Outpatient (CLI) | payer MEDICARE, MEDICAID, SELFPAY ==
[2019-01-07 11:16] LABS: Prothrombin Time 20.1 sec (9.3-11.0)
[2019-01-07 11:29] LABS: Iron 42 ug/dL (50-175); Total Iron Binding Capacity 492 ug/dL (250-450); Transferrin Sat 9 % (15-50)
[2019-01-07 11:44] LABS: Ferritin 10 ng/mL (8-388)
== END 2019-01-07 01:38 ==
PROVIDERS: PCP Family Medicine; Visit Provider Family Medicine
DX: D64.9 Anemia, unspecified (principal); I26.99 Other pulmonary embolism without acute cor pulmonale; Z79.01 Long term (current) use of anticoagulants
CPT/HCPCS: 36415; 82728; 83540; 83550; 85610

== ENCOUNTER 2019-02-14 11:56 | Emergency (ER) | payer MEDICARE, MEDICAID, SELFPAY ==
[2019-02-14 11:57] VITALS: BP 144/59; PULSE 89; RESP 16; TEMP 36.6; O2SAT 94
--- NOTE | 2019-02-14 12:00 | ED.GENADUL_ITS ---
Discharge Plan Disposition Patient Disposition: HOME Condition: Stable Discharge Details Chief Complaint: GenMedical Clinical Impression: Contusion of knee, left, Chronic pain of left knee Primary Care Provider: Jerman Powell ED Provider: Carmen Jorge Home Meds and New Rx's Prescriptions: Continued magnesium oxide 400 mg (241.3 mg magnesium) tablet 1,200 mg PO TID Qty: 270 RF: 4 metformin 1,000 mg tablet 1,000 mg PO BID Qty: 180 RF: 4 hydrocodone-acetaminophen 10-325 mg tablet 1 tab PO Q6H MDD 4 tabs PRN (Reason: pain) Qty: 120 RF: 0 baclofen 10 mg tablet 20 mg PO HS Qty: 90 RF: 4 Elbow Sleeve 1 DAILY Qty: 1 RF: 0 Probiotic 1 EACH capsule 1 ea PO DAILY RF: 0 aspirin 81 MG tablet,chewable 81 mg PO DAILY RF: 0 loperamide 2 MG tablet 2 mg PO QID PRNQty: 60 RF: 3 chlorhexidine gluconate 473 ML mouthwash 2 ml Mucous Membrane BID Qty: 473 RF: 2 triamcinolone acetonide 60 ML lotion Topical HS Qty: 60 RF: 3 triamcinolone acetonide 15 GM cream Topical BID Qty: 30 RF: 3 amitriptyline 25 mg tablet 25 mg PO DAILY Qty: 90 RF: 4 omeprazole 20 mg capsule,delayed release(DR/EC) 20 mg PO DAILY Qty: 90 RF: 4 gabapentin 300 mg capsule 600 mg PO TID Qty: 540 RF: 4 warfarin [Coumadin] 5 mg tablet See Rx Instructions PO .COMPLEX Qty: 100 RF: 3 OneTouch Ultra Test strip 1 ea Miscellaneous BID Qty: 100 RF: 5 lancets [OneTouch UltraSoft Lancets] misc 1 ea Miscellaneous BID Qty: 100 RF: 4 dapsone 25 mg tablet 50 mg PO BID Qty: 240 RF: 6 Discharge Instructions Instructions: Contusion in Adults (ED) Additional Instructions: Rest, ice, elevate left knee is much as possible. Wear the Reji wrap or your knee brace at home. Follow-up with your scheduled appointment for your MRI of your left knee next week. Take your pain medication that you have at home as needed directed for pain. Return immediately to the emergency department if you develop any worsening or new concerning symptoms. Discharge Data Discharge Physician: Carmen Jorge Medical Decision Making 63yo female with a history of chronic left knee pain who presents with left knee pain/injury after mechanical fall which she slipped and fell on stairs and directly hit her left knee on the edge of a step prior to arrival. Mild left anterior knee edema and ecchymosis. No deformity noted. No ligamentous instability. No pain at left hip, ankle or foot. Patient takes [place] regularly for chronic pain and she states she is due for her dose. We will give a dose of [place] and sent for left knee x-ray. 1430 --left knee x-ray negative. Patient has a history of chronic left knee pain for which she has an MRI scheduled next week. Patient has any recent home. Will place a left knee Reji wrap. Patient has canes at home. She is also requesting crutches. She is instructed to rest, ice, elevate and wear Reji wrap or brace. She is instructed to follow-up with her scheduled appointment for MRI next week and follow-up with the primary care doctor for reevaluation as needed. She is instructed return here with any worsening or new concerning symptoms. Imaging Data Radiologic Study: Radiologist's impression: LEFT KNEE: Four views were obtained. The bones are moderately demineralized. Mild degenerative changes noted. No evidence of acute fracture. HPI General Mode of arrival: ambulatory . Date/Time Provider Initiated Documentation: 02/14/19 11:59 . Limitations to Documentation: no limitations . Information obtained by: patient . HPI Narrative: Patient is a 63-year-old female with a history of PE and DVT chronically on Coumadin who presents status post mechanical fall onto left knee prior to arrival. Patient states she was walking up a set of stairs when she fell forward and hit her left knee on the edge of the step. She denies any headache, neck pain, chest pain, abdominal pain, Related Data Home Medications Medication Instructions Recorded Confirmed Probiotic 1 ea PO DAILY 07/04/16 02/11/19 aspirin 81 mg PO DAILY tab.chew 03/20/17 02/11/19 loperamide 2 mg PO QID PRN #60 tab 06/19/17 02/11/19 chlorhexidine gluconate 2 ml MUCOUS MEMBRANE BID #473 ml 07/24/17 02/11/19 triamcinolone acetonide 0 TOPICAL HS #60 ml 12/04/17 02/11/19 triamcinolone acetonide 0 TOPICAL BID #30 g 02/12/18 02/11/19 amitriptyline 25 mg tablet 25 mg PO DAILY #90 tab-cap 05/09/18 02/11/19 magnesium oxide 400 mg (241.3 mg 1,200 mg PO TID #270 tab 09/12/18 02/11/19 magnesium) tablet metformin 1,000 mg tablet 1,000 mg PO BID #180 tab-cap 09/12/18 02/11/19 omeprazole 20 mg capsule,delayed 20 mg PO DAILY #90 tab-cap 09/16/18 02/11/19 release gabapentin 300 mg capsule 600 mg PO TID #540 cap 09/23/18 02/11/19 warfarin 5 mg tablet See Rx Instructions PO .COMPLEX 10/14/18 02/11/19 #100 tab blood sugar diagnostic strips #100 strip 12/04/18 02/11/19 lancets #100 ea 12/04/18 02/11/19 dapsone 25 mg tablet 50 mg PO BID #240 tab-cap 12/06/18 02/11/19 hydrocodone 10 mg-acetaminophen 1 tab PO Q6H PRN #120 tab MDD 4 12/12/18 02/11/19 325 mg tablet tabs baclofen 10 mg tablet 20 mg PO HS #90 tab-cap 02/11/19 02/11/19 Previous Rx's Medication Instructions Recorded chlorhexidine gluconate 2 ml MUCOUS MEMBRANE BID #473 ml 07/24/17 amitriptyline 25 mg tablet 25 mg PO DAILY #90 tab-cap 05/09/18 magnesium oxide 400 mg (241.3 mg 1,200 mg PO TID #270 tab 09/12/18 magnesium) tablet metformin 1,000 mg tablet 1,000 mg PO BID #180 tab-cap 09/12/18 omeprazole 20 mg capsule,delayed 20 mg PO DAILY #90 tab-cap 09/16/18 release gabapentin 300 mg capsule 600 mg PO TID #540 cap 09/23/18 warfarin 5 mg tablet See Rx Instructions PO .COMPLEX 10/14/18 #100 tab blood sugar diagnostic strips #100 strip 12/04/18 lancets #100 ea 12/04/18 dapsone 25 mg tablet 50 mg PO BID #240 tab-cap 12/06/18 hydrocodone 10 mg-acetaminophen 1 tab PO Q6H PRN #120 tab MDD 4 12/12/18 325 mg tablet tabs baclofen 10 mg tablet 20 mg PO HS #90 tab-cap 02/11/19 Allergies Allergy/AdvReac Type Severity Reaction Status Date / Time rizatriptan benzoate Allergy Severe Unverified 02/11/19 16:22 [From Maxalt] azithromycin Allergy Intermediate SOB Unverified 02/11/19 16:22 sulfamethoxazole Allergy Intermediate Unverified 02/11/19 16:22 trimethoprim [From Bactrim] Allergy Intermediate Unverified 02/11/19 16:22 venlafaxine Allergy Intermediate Unverified 02/11/19 16:22 adhesive Allergy RASH Unverified 02/11/19 16:22 wheat Allergy SKIN RASH Unverified 02/11/19 16:22 sertraline AdvReac Intermediate sweating Unverified 02/11/19 16:22 tramadol AdvReac Intermediate Nausea Unverified 02/11/19 16:22 amoxicillin AdvReac GI UPSET Unverified 02/11/19 16:22 General JOSE JUAN: 3 Review of Systems Review of Systems All systems reviewed & are unremarkable except as noted in HPI and below PFSH Medical History Chronic pain (Chronic) DVT (deep venous thrombosis) (Chronic) Diabetes mellitus (Chronic) GERD (gastroesophageal reflux disease) (Chronic) Pulmonary embolism (Chronic) Surgical History section Family History Mother Personal history of malignant neoplasm Father Asthma Sister No problems noted. Brother No problems noted. Social History Smoking/Tobacco Use Status: Current every day Tobacco Type: cigarettes Alcohol Intake: never Drug use: Never Household members: spouse What type of physical activity do you participate in: none Do you feel safe at home: Yes Do you feel safe in your relationship?: Yes Exam Const General: cooperative, healthy appearing and no acute distress HENMT Head: normal to inspection Face and sinus: normal facial exam Eyes General: appearance normal, both eyes and all related structures Pupils: PERRL EOM: EOM intact bilaterally Neck Neck: normal visual inspection and No submandibular swelling Lymphatic: no lymphadenopathy noted Chest Chest: normal inspection of the chest and no tenderness Resp Effort & Inspection: normal respiratory effort and able to speak in complete sentences Auscultation: clear to auscultation bilaterally Cardio Rate: regular rate Rhythm: regular rhythm GI Inspection: normal to inspection Palpation: soft, not firm, not rigid and nontender Auscultation: normal bowel sounds Skin General skin exam: no rashes or lesions noted Neuro General: alert, awake and oriented x3 Cognition: normal cognition Speech: speech normal Motor: muscle tone normal throughout Sensory Exam: no sensory deficits noted Extrem Other: Mild to moderate edema and ecchymosis to left lower medial anterior knee. Pain in left knee with varus > valgus stress. Negative anterior and posterior drawer test left knee. Chronic left lower leg less than 1+ pitting edema. Palpable left PT/DP pulses. No pain in hips bilaterally with range of motion. No pain in right knee or ankle with range of motion. No tenderness to palpation of left ankle or left foot. Psych Appearance: grossly normal Mental Status: mental status grossly normal Speech and Movement: speech and movement normal Affect: normal affect
[2019-02-14 12:19] VITALS: RESP 14
--- NOTE | 2019-02-14 12:24 | DI.RAD_ITS ---
SYMPTOMS/DIAGNOSIS: FALL ONTO LT KNEE, ? ACUTE FRACTURE LEFT KNEE: Four views were obtained. The bones are moderately demineralized. Mild degenerative changes noted. No evidence of acute fracture.
[2019-02-14] MEDS: HYDROcodone 10/Acetaminophen 325 TAB PO (12:30)
[2019-02-14 15:03] VITALS: BP 138/63; PULSE 87; RESP 14; TEMP 36.6; O2SAT 94
--- NOTE | 2019-02-14 15:46 | NUR.NOTE ---
Nursing Note: Pyxis was not stocked with 10/325mg. Verbal order received from MD Jorge to administer two 5/325 tablets.
== END 2019-02-14 15:12 | disposition home or self-care (01) ==
PROVIDERS: Emergency Provider Physician Assistant; PCP Family Medicine
DX: S80.02XA Contusion of left knee, initial encounter (principal); G89.29 Other chronic pain; M25.562 Pain in left knee; W01.0XXA Fall on same level from slipping, tripping and stumbling without subsequent striking against object, initial encounter; E11.9 Type 2 diabetes mellitus without complications; Z79.84 Long term (current) use of oral hypoglycemic drugs; Z79.01 Long term (current) use of anticoagulants
CPT/HCPCS: 99283; 73564; J3490

== ENCOUNTER 2019-02-28 10:58 | Outpatient (CLI) | payer MEDICARE, MEDICAID, SELFPAY ==
[2019-02-28 11:31] LABS: INR 2.7 (0.9-1.1); Prothrombin Time 27.7 sec (9.3-11.0)
== END 2019-02-28 11:18 ==
PROVIDERS: PCP Family Medicine; Visit Provider Family Medicine
DX: I26.99 Other pulmonary embolism without acute cor pulmonale (principal); Z79.01 Long term (current) use of anticoagulants
CPT/HCPCS: 36415; 85610

== ENCOUNTER 2019-04-26 09:45 | Emergency (ER) | payer MEDICARE, MEDICAID, SELFPAY ==
[2019-04-26 09:51] VITALS: BP 150/78; PULSE 73; RESP 20; TEMP 36.6; O2SAT 98
--- NOTE | 2019-04-26 10:03 | ED.GENADUL_ITS ---
Discharge Plan Disposition Patient Disposition: HOME Condition: Improving Discharge Details Chief Complaint: Nausea/Vomit/Diar Clinical Impression: Diabetic gastroparesis Primary Care Provider: Jerman Powell ED Provider: Kenji Pozo Home Meds and New Rx's Prescriptions: New lorazepam [Ativan] 0.5 mg tablet 0.5 mg PO DAILY PRN (Reason: nausea and vomiting) Qty: 4 RF: 0 Continued metformin 1,000 mg tablet 1,000 mg PO BID Qty: 180 RF: 4 chlorhexidine gluconate 0.12 % mouthwash 2 ml Mucous Membrane BID RF: 0 ferrous See Rx Instructions PO DAILY RF: 0 baclofen 10 mg tablet 20 mg PO HS Qty: 90 RF: 4 Elbow Sleeve 1 DAILY Qty: 1 RF: 0 Probiotic 1 EACH capsule 1 ea PO DAILY RF: 0 aspirin 81 MG tablet,chewable 81 mg PO DAILY RF: 0 loperamide 2 MG tablet 2 mg PO QID PRNQty: 60 RF: 3 triamcinolone acetonide 60 ML lotion 0 Topical HS Qty: 60 RF: 3 triamcinolone acetonide 15 GM cream 0 Topical BID Qty: 30 RF: 3 amitriptyline 25 mg tablet 25 mg PO DAILY Qty: 90 RF: 4 omeprazole 20 mg capsule,delayed release(DR/EC) 20 mg PO DAILY Qty: 90 RF: 4 gabapentin 300 mg capsule 600 mg PO TID Qty: 540 RF: 4 warfarin [Coumadin] 5 mg tablet See Rx Instructions PO .COMPLEX Qty: 100 RF: 3 (DME) OneTouch Ultra Test strip 1 ea Miscellaneous BID Qty: 100 RF: 5 (DME) lancets [OneTouch UltraSoft Lancets] misc 1 ea Miscellaneous BID Qty: 100 RF: 4 dapsone 25 mg tablet 50 mg PO BID Qty: 240 RF: 6 magnesium oxide 400 mg (241.3 mg magnesium) tablet 1,200 mg PO TID Qty: 270 RF: 4 hydrocodone-acetaminophen 10-325 mg tablet 1 tab PO Q6H MDD 4 tabs PRN (Reason: pain) Qty: 120 RF: 0 Discharge Instructions Additional Instructions: Home to rest today. Small, frequent sips of fluids to maintain hydration. May use the prescribed Ativan if needed for severe nausea. Do not take at the same time as your baclofen. Please skip 1 dose of warfarin. Your INR today was elevated at 3.7. Please follow-up with Dr. Powell in clinic this week for recheck. Return for any acute concern Medical Decision Making 63-year-old female with history of migraine headaches, intermittent and recurrent abdominal pain with nausea over the years time, who presents with 10+ days of intermittent episodes of epigastric discomfort, nausea, poor tolerance of p.o. including her medications. Reports she was seen at [facility] on April 22 with an unremarkable work-up including CT scan. Now with ongoing discomfort, mild aching headache. Her exam notes essentially normal vital signs but slightly elevated blood pressure. Her neurologic examination is unremarkable. Differential diagnosis includes cyclic vomiting, abdominal migraine, gastroparesis, dehydration, electrolyte abnormality. IV access established, fluids and antiemetic administered, PPI given. Records from [place] visit on April 24- obtained and reviewed reveal lipase of 49 urine that was negative for ketones, specific gravity of 1.01. CT from Apr 22 was reported to have no active disease. IV fluids initiated, screening labs obtained, patient given parenteral fluids and given her allergies/intolerance to most antiemetics, she was given 0.5 mg of Ativan. After 2 L of fluid and medication, patient improving and taking ana shanthi and her Metformin and gabapentin by mouth. After 6 hours, IV and oral hydration, patient is improving, tolerated her medications by mouth. She will require ongoing antiemetic for home and will be given a small number of Ativan by prescription to be used only if needed. She understands this is not to be used with baclofen. Her INR was slightly elevated at 3.7 and she will hold 1 dose of warfarin. She will follow-up with primary care for recheck. She is stable and improved at this time. Lab Data Lab results reviewed: Yes I reviewed the patient's lab results. Laboratory Results - last 24 hr 04/26/19 04/26/19 04/26/19 10:15 10:15 10:15 WBC 8.05 RBC 4.33 Hgb 13.2 Hct 38.4 MCV 88.7 MCH 30.5 MCHC 34.4 RDW 14.7 H Plt Count 252 MPV 9.1 Immature Gran % 0.2 Neutrophils % 70.6 Lymphocytes % 19.9 Monocytes % 8.6 Eosinophils % 0.6 Basophils % 0.1 Absolute Neutrophils 5.68 Absolute Lymphocytes 1.60 Absolute Monocytes 0.69 Absolute Eosinophils 0.05 Absolute Basophils 0.01 PT 37.9 H INR 3.7 H Sodium 130 L Potassium 3.8 Chloride 95 L Carbon Dioxide 26.9 Anion Gap 8.1 BUN 12 Creatinine 0.66 Estimated GFR/1.73 m2 >= 60.00 Glucose 119 H Calcium 9.2 Magnesium 1.4 L Total Bilirubin 0.5 AST 23 ALT 43 Alkaline Phosphatase 122 H Troponin I < 0.05 Total Protein 7.8 Albumin 3.5 ECG Data Attestation: I personally reviewed and interpreted this ECG (s) as follows: Interpretation: Normal sinus rhythm with a rate of 65, the QRS is narrow, there is no ST segment elevation, lateral ST segment nonspecific flattening HPI General Mode of arrival: ambulatory . Date/Time Provider Initiated Documentation: 04/26/19 09:46 . Limitations to Documentation: no limitations . Information obtained by: patient and family . History of Present Illness 63 year old F presents to the emergency department with the chief complaint of Nausea, vomiting, intermittent abdominal pain for 2 weeks, described as moderate, Quality is described as constant, and is localized to the abdomen. Patient started experiencing this day(s) and it has been intermittent. No relieving factors improve symptom(s), Eating worsens symptoms . Patient notes denies fever/chills. Related Data Home Medications Medication Instructions Recorded Confirmed Probiotic 1 ea PO DAILY 07/04/16 04/26/19 aspirin 81 mg PO DAILY tab.chew 03/20/17 04/23/19 loperamide 2 mg PO QID PRN #60 tab 06/19/17 04/26/19 triamcinolone acetonide 0 TOPICAL HS #60 ml 12/04/17 04/23/19 triamcinolone acetonide 0 TOPICAL BID #30 g 02/12/18 04/23/19 amitriptyline 25 mg tablet 25 mg PO DAILY #90 tab-cap 05/09/18 04/26/19 metformin 1,000 mg tablet 1,000 mg PO BID #180 tab-cap 09/12/18 04/26/19 omeprazole 20 mg capsule,delayed 20 mg PO DAILY #90 tab-cap 09/16/18 04/26/19 release gabapentin 300 mg capsule 600 mg PO TID #540 cap 09/23/18 04/26/19 warfarin 5 mg tablet See Rx Instructions PO .COMPLEX 10/14/18 04/26/19 #100 tab blood sugar diagnostic #100 strip 12/04/18 04/23/19 lancets #100 ea 12/04/18 04/23/19 dapsone 25 mg tablet 50 mg PO BID #240 tab-cap 12/06/18 04/26/19 baclofen 10 mg tablet 20 mg PO HS #90 tab-cap 02/11/19 04/23/19 magnesium oxide 400 mg (241.3 mg 1,200 mg PO TID #270 tab 03/10/19 04/26/19 magnesium) tablet chlorhexidine gluconate 0.12 % 2 ml MUCOUS MEMBRANE BID ml 03/26/19 04/26/19 mouthwash ferrous See Rx Instructions PO DAILY 03/26/19 04/26/19 hydrocodone 10 mg-acetaminophen 1 tab PO Q6H PRN #120 tab MDD 4 04/24/19 04/26/19 325 mg tablet tabs lorazepam [Ativan] 0.5 mg PO DAILY PRN #4 tab 04/26/19 Previous Rx's Medication Instructions Recorded amitriptyline 25 mg tablet 25 mg PO DAILY #90 tab-cap 05/09/18 metformin 1,000 mg tablet 1,000 mg PO BID #180 tab-cap 09/12/18 omeprazole 20 mg capsule,delayed 20 mg PO DAILY #90 tab-cap 09/16/18 release gabapentin 300 mg capsule 600 mg PO TID #540 cap 09/23/18 warfarin 5 mg tablet See Rx Instructions PO .COMPLEX 10/14/18 #100 tab blood sugar diagnostic #100 strip 12/04/18 lancets #100 ea 12/04/18 dapsone 25 mg tablet 50 mg PO BID #240 tab-cap 12/06/18 baclofen 10 mg tablet 20 mg PO HS #90 tab-cap 02/11/19 magnesium oxide 400 mg (241.3 mg 1,200 mg PO TID #270 tab 03/10/19 magnesium) tablet hydrocodone 10 mg-acetaminophen 1 tab PO Q6H PRN #120 tab MDD 4 04/24/19 325 mg tablet tabs lorazepam [Ativan] 0.5 mg PO DAILY PRN #4 tab 04/26/19 Allergies Allergy/AdvReac Type Severity Reaction Status Date / Time rizatriptan benzoate Allergy Severe Unverified 04/26/19 09:54 [From Maxalt] azithromycin Allergy Intermediate SOB Unverified 04/26/19 09:54 sulfamethoxazole Allergy Intermediate Unverified 04/26/19 09:54 trimethoprim [From Bactrim] Allergy Intermediate Unverified 04/26/19 09:54 venlafaxine Allergy Intermediate Unverified 04/26/19 09:54 adhesive Allergy RASH Unverified 04/26/19 09:54 wheat Allergy SKIN RASH Unverified 04/26/19 09:54 sertraline AdvReac Intermediate sweating Unverified 04/26/19 09:54 tramadol AdvReac Intermediate Nausea Unverified 04/26/19 09:54 amoxicillin AdvReac GI UPSET Unverified 04/26/19 09:54 General Stated Complaint: Nausea/Vomit/Diar JOSE JUAN: 3 Review of Systems Review of Systems 6 systems reviewed and otherwise negative [facility] Medical History Chronic pain (Chronic) Diabetes mellitus (Chronic) DVT (deep venous thrombosis) (Chronic) GERD (gastroesophageal reflux disease) (Chronic) Pulmonary embolism (Chronic) Zoster (Acute) Surgical History section Family History Mother Personal history of malignant neoplasm BONE,THYROID,BACK,LIVER,BLADDER,BREAST Father Asthma Sister No problems noted. Brother No problems noted. Social History Smoking/Tobacco Use Status: Current every day Tobacco Type: cigarettes Alcohol Intake: never Drug use: Never Household members: spouse What type of physical activity do you participate in: none Do you feel safe at home: Yes Do you feel safe in your relationship?: Yes Exam Narrative Exam Narrative: GEN: awake, alert, oriented 3. Pleasant, well groomed, interactive. HEAD: Normocephalic, atraumatic ENT: Mucous membranes dry, oropharynx unremarkable, External ear exam unremarkable EYES: PERRL, EOMI NECK: Full ROM, no SYLVESTER, no menigismus CHEST/RESP: Nontender, clear to auscultation bilateral, no wheeze/rhonchi/rales CARDIOVASCULAR: RRR, no murmur, rub todd. 2+ Rad pulse bilateral ABDOMEN: Soft, minimally tender, no rebound, no mass. +Bowel sounds EXT: Full ROM, no edema, no rash Neuro: Grossly normal neurologic exam, conversant, interactive. Psych: Speech fluent, thoughts congruent, affect normal Course Vital Signs Temperature 36.6 C 04/26/19 09:51 Pulse 73 04/26/19 09:51 Respiratory Rate 20 04/26/19 09:51 Blood Pressure 150/78 H 04/26/19 09:51 Pulse Oximetry 98 04/26/19 09:51 Temperature 36.6 C 04/26/19 09:51 Temperature Source Temporal Artery Scan 04/26/19 09:51 Pulse 73 04/26/19 09:51 Respiratory Rate 20 04/26/19 09:51 Blood Pressure 150/78 H 04/26/19 09:51 Blood Pressure Position Sitting 04/26/19 09:51 Pulse Oximetry 98 04/26/19 09:51 Oxygen Delivery Method Room Air 04/26/19 09:51 Oxygen Flow Rate 0 04/26/19 09:51 Pain Level 8 04/26/19 09:51
[2019-04-26] MEDS: Normal Saline 1,000 ML 1000 ML IV (10:15)
[2019-04-26] MEDS: Ketorolac 15 MG/ML VIAL IVP (10:20)
[2019-04-26 10:23] LABS: Abs Immature Grans 0.02 k/cumm (0.0-0.09); Absolute Basophil Count 0.01 k/cumm (0.0-0.2); Absolute Eosinophil Count 0.05 k/cumm (0.0-0.7); Absolute Monocyte Count 0.69 k/cumm (0.11-0.7); Absolute Neutrophil Count 5.68 k/cumm (1.2-6.7); Basophils % 0.1; Eosinophils % 0.6; HCT 38.4 % (36.0-46.0); HGB 13.2 g/dL (12.0-15.5); Immature Grans % 0.2; Lymphocytes % 19.9; Mean Corp. HGB Concentration 34.4 g/dL (32.0-36.0); Mean Corpuscular Hemoglobin 30.5 pg (27.0-33.0); Mean Corpuscular Volume 88.7 fL (80-95); Mean Platelet Volume 9.1 fL (8.0-11.0); Monocytes % 8.6; Neutrophils % 70.6; Platelet Count 252 x1000/uL (130-400); RBC 4.33 m/cumm (4.00-5.20); RBC Distribution Width 14.7 % (11.7-14.6); White Blood Cell Count 8.05 k/cumm (4.4-10.8)
[2019-04-26] MEDS: LORazepam 2 MG/ML VIAL 1 MG IVP (10:23)
[2019-04-26] MEDS: Pantoprazole 40 MG VIAL IVP (10:31)
[2019-04-26 10:37] LABS: INR 3.7 (0.9-1.1); Prothrombin Time 37.9 sec (9.3-11.0)
[2019-04-26 10:42] LABS: ALT 43 U/L (14-59); AST 23 U/L (15-37); Albumin 3.5 g/dL (3.4-5.0); Alkaline Phosphatase 122 U/L (46-116); Anion Gap 8.1 mmol/L (3-11); BUN 12 mg/dL (7-18); Bilirubin, Total 0.5 mg/dL (0.2-1.0); CO2 26.9 mmol/L (21.0-32.0); CREATININE 0.66 mg/dL (0.55-1.02); Calcium 9.2 mg/dL (8.5-10.1); Chloride 95 mmol/L (98-107); Glucose 119 mg/dL (70-100); Magnesium 1.4 mg/dL (1.8-2.4); Potassium 3.8 mmol/L (3.5-5.1); Sodium 130 mmol/L (136-145); Total Protein 7.8 g/dL (6.4-8.2)
[2019-04-26 10:43] LABS: Troponin I < 0.05 ng/mL (0.00-0.06)
[2019-04-26] MEDS: MAGNESIUM SULFATE 2 GM/50 ML BAG IVPB (11:09)
[2019-04-26] MEDS: Normal Saline 1,000 ML 200 ML IV (11:25)
[2019-04-26 12:30] VITALS: BP 173/51; PULSE 80; RESP 16; O2SAT 95
[2019-04-26 15:16] VITALS: BP 173/57; PULSE 78; RESP 16; O2SAT 97
[2019-04-26] MEDS: metFORMIN 500 MG TAB 1000 MG PO (15:41)
[2019-04-26] MEDS: Gabapentin 300 MG CAP 600 MG PO (15:41)
[2019-04-26 17:45] VITALS: BP 168/56; PULSE 74; RESP 16; TEMP 36.6; O2SAT 94
[2019-04-26] MEDS: LORazepam 0.5 MG TAB PO (18:51)
== END 2019-04-26 17:30 | disposition home or self-care (01) ==
PROVIDERS: Emergency Provider Emergency Medicine; PCP Family Medicine
DX: E11.42 Type 2 diabetes mellitus with diabetic polyneuropathy (principal); R79.1 Abnormal coagulation profile; T45.515A Adverse effect of anticoagulants, initial encounter; Z79.84 Long term (current) use of oral hypoglycemic drugs; R10.13 Epigastric pain
CPT/HCPCS: 36415; 80053; 93005; 96361; 96365; 96366; 96375; 99284; 83735; 84484; 85025; 85610; 93010; J1885; J2060

== ENCOUNTER 2019-04-30 10:40 | Outpatient (CLI) | payer MEDICARE, MEDICAID, SELFPAY ==
[2019-04-30 11:21] LABS: Prothrombin Time 45.3 sec (9.3-11.0)
[2019-04-30 11:25] LABS: INR 4.5 (0.9-1.1)
== END 2019-04-30 11:00 ==
PROVIDERS: PCP Family Medicine; Visit Provider Family Medicine
DX: I26.99 Other pulmonary embolism without acute cor pulmonale (principal); Z79.01 Long term (current) use of anticoagulants
CPT/HCPCS: 36415; 85610

== ENCOUNTER 2019-05-02 07:35 | Outpatient (CLI) | payer MEDICARE, MEDICAID, SELFPAY ==
[2019-05-02 11:39] LABS: INR 1.8 (0.9-1.1); Prothrombin Time 17.8 sec (9.3-11.0)
== END 2019-05-02 07:55 ==
PROVIDERS: PCP Family Medicine; Visit Provider Family Medicine
DX: I26.99 Other pulmonary embolism without acute cor pulmonale (principal); Z79.01 Long term (current) use of anticoagulants
CPT/HCPCS: 36415; 85610

== ENCOUNTER 2019-05-12 09:31 | Outpatient (CLI) | payer MEDICARE, MEDICAID, SELFPAY ==
[2019-05-12 10:14] LABS: INR 1.7 (0.9-1.1); Prothrombin Time 17.3 sec (9.3-11.0)
== END 2019-05-12 09:51 ==
PROVIDERS: PCP Family Medicine; Visit Provider Family Medicine
DX: I26.99 Other pulmonary embolism without acute cor pulmonale (principal); Z79.01 Long term (current) use of anticoagulants
CPT/HCPCS: 36415; 85610

== ENCOUNTER 2019-05-19 08:49 | Outpatient (CLI) | payer MEDICARE, MEDICAID, SELFPAY ==
[2019-05-19 10:01] LABS: INR 1.8 (0.9-1.1); Prothrombin Time 17.8 sec (9.3-11.0)
== END 2019-05-19 09:09 ==
PROVIDERS: PCP Family Medicine; Visit Provider Family Medicine
DX: I26.99 Other pulmonary embolism without acute cor pulmonale (principal); Z79.01 Long term (current) use of anticoagulants
CPT/HCPCS: 36415; 85610

== ENCOUNTER 2019-05-29 10:00 | Emergency (ER) | payer MEDICARE, MEDICAID, SELFPAY ==
[2019-05-29 10:05] VITALS: BP 121/73; PULSE 116; RESP 20; TEMP 36.4; O2SAT 98
[2019-05-29] MEDS: Lactated Ringers 1,000 ML 1000 ML IV (10:50)
[2019-05-29] MEDS: Prochlorperazine 10 MG/2 ML VIAL 5 MG IVP (11:00)
[2019-05-29 11:02] LABS: Abs Immature Grans 0.02 k/cumm (0.0-0.09); Absolute Basophil Count 0.01 k/cumm (0.0-0.2); Absolute Eosinophil Count 0.03 k/cumm (0.0-0.7); Absolute Lymphocyte Count 1.58 k/cumm (1.2-3.4); Absolute Monocyte Count 0.57 k/cumm (0.11-0.7); Absolute Neutrophil Count 4.66 k/cumm (1.2-6.7); Basophils % 0.1; Eosinophils % 0.4; HGB 13.3 g/dL (12.0-15.5); Immature Grans % 0.3; Mean Corp. HGB Concentration 34.1 g/dL (32.0-36.0); Mean Corpuscular Hemoglobin 32.7 pg (27.0-33.0); Mean Corpuscular Volume 95.8 fL (80-95); Mean Platelet Volume 9.6 fL (8.0-11.0); Monocytes % 8.3; Neutrophils % 67.9; Platelet Count 251 x1000/uL (130-400); RBC 4.07 m/cumm (4.00-5.20); RBC Distribution Width 12.9 % (11.7-14.6); White Blood Cell Count 6.87 k/cumm (4.4-10.8)
--- NOTE | 2019-05-29 11:04 | ED.GENADUL_ITS ---
Discharge Plan Disposition Patient Disposition: HOME Condition: Good Discharge Details Chief Complaint: Nausea/Vomit/Diar Clinical Impression: Mild nausea and vomiting, Hepatic lesion, Restless leg syndrome Primary Care Provider: Jerman Powell ED Provider: Scout Freeman Home Meds and New Rx's Prescriptions: New sucralfate [Carafate] 1 gram tablet 1 gm PO QACHS 30 Days Qty: 120 RF: 0 pramipexole 0.125 mg tablet 0.125 mg PO QPM Qty: 30 RF: 0 cephalexin [Keflex] 500 mg capsule 500 mg PO QID 3 Days Qty: 12 RF: 0 Continued metformin 1,000 mg tablet 1,000 mg PO BID Qty: 180 RF: 4 chlorhexidine gluconate 0.12 % mouthwash 2 ml Mucous Membrane BID RF: 0 ferrous See Rx Instructions PO DAILY RF: 0 baclofen 10 mg tablet 20 mg PO HS Qty: 90 RF: 4 Elbow Sleeve 1 DAILY Qty: 1 RF: 0 Probiotic 1 EACH capsule 1 ea PO DAILY RF: 0 aspirin 81 MG tablet,chewable 81 mg PO DAILY RF: 0 loperamide 2 MG tablet 2 mg PO QID PRNQty: 60 RF: 3 triamcinolone acetonide 60 ML lotion 0 Topical HS Qty: 60 RF: 3 triamcinolone acetonide 15 GM cream 0 Topical BID Qty: 30 RF: 3 amitriptyline 25 mg tablet 25 mg PO DAILY Qty: 90 RF: 4 omeprazole 20 mg capsule,delayed release(DR/EC) 20 mg PO DAILY Qty: 90 RF: 4 warfarin [Coumadin] 5 mg tablet See Rx Instructions PO .COMPLEX Qty: 100 RF: 3 (DME) OneTouch Ultra Test strip 1 ea Miscellaneous BID Qty: 100 RF: 5 (DME) lancets [OneTouch UltraSoft Lancets] misc 1 ea Miscellaneous BID Qty: 100 RF: 4 dapsone 25 mg tablet 50 mg PO BID Qty: 240 RF: 6 magnesium oxide 400 mg (241.3 mg magnesium) tablet 1,200 mg PO TID Qty: 270 RF: 4 hydrocodone-acetaminophen 10-325 mg tablet 1 tab PO Q6H MDD 4 tabs PRN (Reason: pain) Qty: 120 RF: 0 lorazepam [Ativan] 0.5 mg tablet 0.5 mg PO DAILY PRN (Reason: nausea and vomiting) Qty: 14 RF: 0 gabapentin 600 mg tablet 600 mg PO TID Qty: 270 RF: 4 Discharge Instructions Instructions: Esophagitis (ED) Additional Instructions: At this time your CT scan shows no evidence of any pathology that requires immediate intervention. There are a few things of concern though. 1) I feel your symptoms of nausea and vomiting that occur when you lay down at night are secondary to a type of reflux and a problem with your esophageal sphincter. Please take the Carafate as directed. Avoid any spicy foods, citrus-based products, or tomato-based products. Please eat dinner as far from sleeping as possible. Please make sure that you are sleeping upright at 45 degrees or greater. We will schedule an outpatient surgical follow-up for you, when they do contact you please do not miss this appointment. 2) there is an atypical fatty lesion on your liver. Although this does not appear dangerous at this time this requires prompt follow-up with your family doctor and eventually an MRI of your liver. Please contact your family doctor promptly for this follow-up and reassessment. 3) from the symptoms that you demonstrated here it appears that you suffer from a component of restless leg syndrome. Please take the medication as directed, and follow-up closely with your family doctor in regards to this. You may require increased dosing of this medication. 4) your INR is slightly elevated. Please do not take your evening dose tonight. Please have your INR rechecked shortly. 5) you have an asymptomatic potential urinary tract infection. I suspect the results are secondary to a contaminated urine, however if you do develop symptoms of urinary frequency, pain or burning, fever or chills, please take the antibiotic as directed. Otherwise hold off on taking the antibiotic. If you notice any worsening of your symptoms, or any new symptoms such as vomiting, diarrhea, fever, chills, shortness of breath, chest pain, numbness, weakness, or fainting , please return immediately to the emergency department for reevaluation. Please follow up with your primary care provider as soon as possible for reassessment and reevaluation. As always, it was a pleasure participating in your medical care today. Referrals: Jerman Powell MD [Primary Care Provider] - Medical Decision Making This is a pleasant 63-year-old female with a past medical history of GERD, hypercoagulability on Coumadin, type 2 diabetes, cholecystectomy, who presents today for evaluation of nausea and vomiting for the last 2 weeks. Patient has had episodes like this before which she states is resolved with Ativan. She states that she has since run out of her Ativan. Patient states that her vomiting only occurs at night after she has been laying down for a few hours. She usually has 2-3 episodes per night. She also gets notably anxious during these times with what she describes as leg movement sensations. She denies any blood, coffee grounds, or bilious emesis. She denies any vomiting throughout the day. She is able to take her meds and eat small amounts throughout the day as well. Physical exam is notably unremarkable. Mucous membranes are slightly dry, skin turgor slightly poor, however no significant ab dominal, epigastric, or abnormal tenderness. She does take her regular omeprazole. She has no chest pain or shortness of breath. Signs and symptoms appear most consistent with questionable gastritis, esophageal sphincter spasm versus nightly reflux. However due to the continued frequency of her symptoms, I do feel that hydration, further imaging evaluation is certainly warranted. Although unlikely, we will evaluate for ACS in addition to the other abnormalities. 1:14 PM Patient is feeling much better, she is tolerated p.o. trial here, nausea has resolved. Patient's laboratory work-up is relatively unremarkable. No significant abnormalities. Patient's INR is elevated at 4.2, which is certainly slightly supratherapeutic. We have recommended that she hold off today's dose, and get rechecked the next 48 to 72 hours. EKG and troponin are normal. Urinalysis does show evidence of a questionable urinary tract infection however it is notably dirty urine. She continues to deny any symptoms of fever, chills, dysuria or increased urinary frequency. Because it is a week and coming up we will give her a prescription for Keflex, however I have discussed with her the importance of holding off and taking this, and only taking it if she does have symptomatology. CT scans do show evidence of slight inflammation around the pancreatic head, however the lipase is normal. Doubt severe pancreatitis. No evidence of abscess. There is a small lesion noted on the liver which appears to be new, radiology does recommend eventual outpatient MRI for further assessment. Nothing acute currently. There is also some questionable thickening of the stomach lining, this certainly may be reflective of the symptomatology that the patient has, as well is being in conjunction with chronic gastritis. I do feel that the patient is otherwise stable currently as she has no current vomiting, her symptoms are only present at night when she lies down, and she has been able to tolerate p.o. here. Vital signs remain unremarkable. I do feel that this is likely an esophageal sphincter issue or chronic gastritis. Will recommend that she follows up closely with surgery for EGD. We will put in a consult for this. We will add Carafate to her current medications. We discussed dietary changes, sleeping patterns to improve/decrease reflux, the importance red flags which to return. I have extensively reviewed the treatment plan and discharge instructions with the patient and their family. I have addressed all patient concerns at this time. The patient and family was made aware of what symptoms to monitor for that would warrant a return to the emergency department. Discussed the plan with the patient and family, they demonstrate verbal understanding and agreement with our assessment and plan at this time. EKG 10: 55 Rate 99, intervals normal, sinus rhythm, no significant ST elevation or depression, no evidence of STEMI, no significant Q waves. FINDINGS: CT examination of the abdomen and pelvis was performed with bolus infusion of 100 cc of Omnipaque 350 and ingestion dilute barium. Images obtained through the lung bases are unremarkable. Liver shows poorly defined area decreased attenuation adjacent to gallbladder fossa, prior cholecystectomy noted. Findings may represent focal hepatic fat, mass not entirely excluded. Correlation with hepatic MRI recommended. No biliary dilatation seen. Pancreas appears normal. Portal lymph node noted measuring to about 9 x 18 millimeters in diameter, increased in size since May 2018. Question slight peripancreatic fat edema particularly about the pancreatic head, correlation requested regarding possibility of pancreatitis. The spleen is unremarkable. Adrenals and kidneys appear normal. There is no evidence of urinary tract calcification or obstruction. No significant abdominal wall hernia seen. Appendix appears normal. Question slight nonspecific small-bowel dilatation proximally. No evidence of colonic obstruction. There is and ileo caval shunt. There is moderate atheromatous change of the abdominal aorta with no aneurysm or significant stenosis of major branch vessels. No retroperitoneal adenopathy. Traffic Observer structures unremarkable for age. IMPRESSION: Question peripancreatic edema, please correlate clinically with the possibility of pancreatitis. Mildly enlarged portal lymph node also seen, nonspecific. Indeterminate hepatic low-attenuation focus, correlation with hepatic MRI recommended. [id number]: Total DLP = 0.00 mGy-cm Ordered By: Scout Freeman DO CC: Dictated By: Kenji Lopez M.D. 05/29/19 1250 05/29/19 1252 Transcribed By: Kenji Lopez This is privileged, confidential information intended only for the provider named. Any use or distribution by any person other than this provider is strictly prohibited. If you receive this report in error, please notify us immediately at [phone] and return the original report to us at the address above. Thank-you. Addenda: Please note also that there is apparent wall thickening of the gastric fundus, inflammatory or neoplastic process not excluded. Correlation with endoscopy suggested. HPI General Date/Time Provider Initiated Documentation: 05/29/19 10:09 . [facility] Narrative: This is a 63-year-old female with a past medical history of previous pulmonary embolism, Coumadin use, previous cholecystectomy, type 2 diabetes, chronic reflux and GERD, as well as chronic vomiting who presents today for nausea and vomiting for the last 2 weeks. She has had episodes like this in the past, she states that they usually resolved with Ativan. She states that she is intolerant to Reglan and Zofran secondary to it making her nausea worse. She states that she took her last dose yesterday. Symptoms occur only at night after she has been laying down in bed for a few hours. She will usually have 3- 4 episodes per night. It is nonbilious, no hematemesis, no coffee grounds. She admits to mild nausea but denies any significant abdominal pain. She had one episode of diarrhea yesterday but none prior to this. No recent antibiotic use. She denies any vomiting throughout the day, but does admit to continued nausea throughout the day. She has been taking her home medications, but she states that she throws up her nighttime pills. She sleeps flat at night, and not in a recliner. She denies any history of EGD. She currently states that she feels dehydrated based on her skin turgor. She denies any other complaints at this time. No other modifying factors. She denies any chest pain, shortness of breath, chest tightness, arm neck or shoulder pain, history of [place]. Related Data Home Medications Medication Instructions Recorded Confirmed Probiotic 1 ea PO DAILY 07/04/16 05/29/19 aspirin 81 mg PO DAILY tab.chew 03/20/17 05/29/19 loperamide 2 mg PO QID PRN #60 tab 06/19/17 05/29/19 triamcinolone acetonide 0 TOPICAL HS #60 ml 12/04/17 04/30/19 triamcinolone acetonide 0 TOPICAL BID #30 g 02/12/18 04/30/19 amitriptyline 25 mg tablet 25 mg PO DAILY #90 tab-cap 05/09/18 05/29/19 metformin 1,000 mg tablet 1,000 mg PO BID #180 tab-cap 09/12/18 05/29/19 omeprazole 20 mg capsule,delayed 20 mg PO DAILY #90 tab-cap 09/16/18 05/29/19 release warfarin 5 mg tablet See Rx Instructions PO .COMPLEX 10/14/18 05/29/19 #100 tab blood sugar diagnostic #100 strip 12/04/18 04/30/19 lancets #100 ea 12/04/18 04/30/19 dapsone 25 mg tablet 50 mg PO BID #240 tab-cap 12/06/18 05/29/19 baclofen 10 mg tablet 20 mg PO HS #90 tab-cap 02/11/19 05/29/19 magnesium oxide 400 mg (241.3 mg 1,200 mg PO TID #270 tab 03/10/19 05/29/19 magnesium) tablet chlorhexidine gluconate 0.12 % 2 ml MUCOUS MEMBRANE BID ml 03/26/19 05/29/19 mouthwash ferrous See Rx Instructions PO DAILY 03/26/19 04/30/19 hydrocodone 10 mg-acetaminophen 1 tab PO Q6H PRN #120 tab MDD 4 04/24/19 05/29/19 325 mg tablet tabs lorazepam 0.5 mg tablet 0.5 mg PO DAILY PRN #14 tab 04/28/19 05/29/19 gabapentin 600 mg tablet 600 mg PO TID #270 tab 05/07/19 05/29/19 cephalexin [Keflex] 500 mg PO QID 3 Days #12 cap 05/29/19 pramipexole 0.125 mg PO QPM #30 tab 05/29/19 sucralfate [Carafate] 1 gm PO QACHS 30 Days #120 tab 05/29/19 Previous Rx's Medication Instructions Recorded amitriptyline 25 mg tablet 25 mg PO DAILY #90 tab-cap 05/09/18 metformin 1,000 mg tablet 1,000 mg PO BID #180 tab-cap 09/12/18 omeprazole 20 mg capsule,delayed 20 mg PO DAILY #90 tab-cap 09/16/18 release warfarin 5 mg tablet See Rx Instructions PO .COMPLEX 10/14/18 #100 tab blood sugar diagnostic #100 strip 12/04/18 lancets #100 ea 12/04/18 dapsone 25 mg tablet 50 mg PO BID #240 tab-cap 12/06/18 baclofen 10 mg tablet 20 mg PO HS #90 tab-cap 02/11/19 magnesium oxide 400 mg (241.3 mg 1,200 mg PO TID #270 tab 03/10/19 magnesium) tablet hydrocodone 10 mg-acetaminophen 1 tab PO Q6H PRN #120 tab MDD 4 04/24/19 325 mg tablet tabs lorazepam 0.5 mg tablet 0.5 mg PO DAILY PRN #14 tab 04/28/19 gabapentin 600 mg tablet 600 mg PO TID #270 tab 05/07/19 cephalexin [Keflex] 500 mg PO QID 3 Days #12 cap 05/29/19 pramipexole 0.125 mg PO QPM #30 tab 05/29/19 sucralfate [Carafate] 1 gm PO QACHS 30 Days #120 tab 05/29/19 Allergies Allergy/AdvReac Type Severity Reaction Status Date / Time rizatriptan benzoate Allergy Severe Unverified 05/29/19 10:07 [From Maxalt] azithromycin Allergy Intermediate SOB Unverified 05/29/19 10:07 sulfamethoxazole Allergy Intermediate Unverified 05/29/19 10:07 trimethoprim [From Bactrim] Allergy Intermediate Unverified 05/29/19 10:07 venlafaxine Allergy Intermediate Unverified 05/29/19 10:07 adhesive Allergy RASH Unverified 05/29/19 10:07 wheat Allergy SKIN RASH Unverified 05/29/19 10:07 sertraline AdvReac Intermediate sweating Unverified 05/29/19 10:07 tramadol AdvReac Intermediate Nausea Unverified 05/29/19 10:07 amoxicillin AdvReac GI UPSET Unverified 05/29/19 10:07 promethazine AdvReac jitters Verified 05/29/19 10:07 General Stated Complaint: Nausea/Vomit/Diar JOSE JUAN: 3 Review of Systems Review of Systems ROS Unobtainable: All systems reviewed & are unremarkable except as noted in HPI and below PFSH Social History Smoking/Tobacco Use Status: Current every day Tobacco Type: cigarettes Alcohol Intake: never Drug use: Never Household members: spouse What type of physical activity do you participate in: none Do you feel safe at home: Yes Do you feel safe in your relationship?: Yes Exam Narrative Exam Narrative: 1.Const: Well-nourished, Well-developed, appearing stated age 2.Eyes: PERRL, no conjunctival injection, and symmetrical lids. 3.ENT: Atraumatic external nose and ears. Dry MM. Neck: Symmetric, trachea midline, No thyromegaly. 4.CVS: +S1/S2, No murmurs or gallops. Peripheral pulses 2+ and equal in all extremities. Brisk capillary refill in all extremities. 5.RESP: Unlabored respiratory effort. Clear to auscultation bilaterally. No wheezes rales or rhonchi 6.GI: Soft, Nontender/Nondistended, No hepatosplenomegaly. No guarding or rebound. No pain at McBurney's point, negative High sign. No abdominal tenderness. 7.MSK: Normocephalic/Atraumatic, Extremities w/o deformity or ttp No cyanosis or clubbing, Normal movement of all extremities 8.Skin: Warm, Dry. No rashes or lesions. 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 Sensation grossly intact, no focal neurologic deficits. 10.Psych: (AAO) x3. Appropriate mood and affect Course Vital Signs Vital signs: Vital Signs Temperature 36.4 C L 05/29/19 10:05 Pulse 116 H 05/29/19 10:05 Respiratory Rate 20 05/29/19 10:05 Blood Pressure 121/73 05/29/19 10:05 Pulse Oximetry 98 05/29/19 10:05 Temperature 36.4 C L 05/29/19 10:05 Temperature Source Temporal Artery Scan 05/29/19 10:05 Pulse 116 H 05/29/19 10:05 Respiratory Rate 20 05/29/19 10:05 Respiratory Effort Non-Labored 05/29/19 10:09 Blood Pressure 121/73 05/29/19 10:05 Blood Pressure Position Sitting 05/29/19 10:05 Pulse Oximetry 98 05/29/19 10:05 Oxygen Delivery Method Room Air 05/29/19 10:05 Oxygen Flow Rate 0 05/29/19 10:05 Pain Level 8 05/29/19 10:05
[2019-05-29] MEDS: diphenhydrAMINE 50 MG/ML VIAL 25 MG IVP ×2 (11:07→11:50)
[2019-05-29 11:24] LABS: ALT 36 U/L (14-59); AST 27 U/L (15-37); Albumin 3.8 g/dL (3.4-5.0); Alkaline Phosphatase 125 U/L (46-116); Anion Gap 10.2 mmol/L (3-11); BUN 8 mg/dL (7-18); Bilirubin, Total 0.5 mg/dL (0.2-1.0); CO2 26.8 mmol/L (21.0-32.0); CREATININE 0.72 mg/dL (0.55-1.02); Calcium 9.6 mg/dL (8.5-10.1); Chloride 99 mmol/L (98-107); Glucose 121 mg/dL (70-100); Lipase 160 U/L (73-393); Potassium 3.8 mmol/L (3.5-5.1); Sodium 136 mmol/L (136-145); TSH (W/Ref FT4) 1.43 uIU/mL (0.36-3.74); Total Protein 8.2 g/dL (6.4-8.2)
[2019-05-29 11:30] LABS: PTT Activated 49.2 sec (21.0-31.4); Prothrombin Time 40.3 sec (9.3-11.0)
[2019-05-29 11:37] LABS: Troponin I < 0.05 ng/mL (0.00-0.06)
[2019-05-29 11:45] LABS: INR 4.2 (0.9-1.1)
[2019-05-29 11:49] LABS: Bilirubin Negative (Negative); Blood Small (Negative); Clarity Clear (Clear); Glucose Negative (Negative); Ketones Negative (Negative); Leukocyte Esterase Moderate (Negative); Nitrite Negative (Negative); Urobilinogen 0.2 EU/dL (Up TO 0.2); pH 6.5 (5-8)
[2019-05-29 12:00] LABS: WBC 20-50 HPF (0-5)
[2019-05-29 12:01] LABS: Bacteria Few HPF (Negative); Casts Negative LPF (Negative); Crystals Negative HPF (Negative); Epithelial Cells Moderate HPF (Negative); Mucus Negative (Negative)
[2019-05-29 12:02] LABS: C & S Indicated? No
--- NOTE | 2019-05-29 12:31 | DI.CT_ITS ---
EXAM: CT ABDOMEN PELVIS W CLINICAL HISTORY: vomiting for 2 weeks, epigastric pain. TECHNIQUE: COMPARISON: ABD PELVIS WO CONTRAST from 05/06/2016 FINDINGS: CT examination of the abdomen and pelvis was performed with bolus infusion of 100 cc of Omnipaque 350 and ingestion dilute barium. Images obtained through the lung bases are unremarkable. Liver shows poorly defined area decreased attenuation adjacent to gallbladder fossa, prior cholecystectomy noted. Findings may represent focal hepatic fat, mass not entirely excluded. Correlation with hepatic MRI recommended. No biliary dilatation seen. Pancreas appears normal. Portal lymph node noted measuring to about 9 x 18 millimeters in diameter, increased in size since May 2018. Question slight peripancreatic fa t edema particularly about the pancreatic head, correlation requested regarding possibility of pancre atitis. The spleen is unremarkable. Adrenals and kidneys appear normal. There is no evidence of urinary tra ct calcification or obstruction. No significant abdominal wall hernia seen. Appendix appears normal . Question slight nonspecific small-bowel dilatation proximally. No evidence of colonic obstruction . There is and ileo caval shunt. There is moderate atheromatous change of the abdominal aorta with no aneurysm or significant stenosis of major branch vessels. No retroperitoneal adenopathy. Senior Chemical Engineer struct ures unremarkable for age. IMPRESSION: Question peripancreatic edema, please correlate clinically with the possibility of pancreatitis. Mildly enlarged portal lymph node also seen, nonspecific. Indeterminate hepatic low-attenuation focus, correlation with hepatic MRI recommended.
[2019-05-29] MEDS: Omeprazole 20 MG CAPCR PO (12:50)
[2019-05-29] MEDS: Pramipexole 0.25 MG TAB 0.125 MG PO (12:50)
[2019-05-29] MEDS: Sucralfate 1 GM TAB PO (12:50)
[2019-05-29 13:10] VITALS: BP 120/50; PULSE 96; RESP 16; TEMP 36.4; O2SAT 95
[2019-05-29 13:20] LABS: Magnesium 1.5 mg/dL (1.8-2.4)
--- NOTE | 2019-05-29 18:30 | NUR.NOTE ---
Nursing Note: Faxed referral to General Surgery for follow up for EGD. Davida Blum
== END 2019-05-29 13:21 | disposition home or self-care (01) ==
PROVIDERS: Emergency Provider Student in an Organized Health Care Education/Training Program; PCP Family Medicine
DX: R11.2 Nausea with vomiting, unspecified (principal); K76.89 Other specified diseases of liver; G25.81 Restless legs syndrome; F41.9 Anxiety disorder, unspecified; E11.9 Type 2 diabetes mellitus without complications; Z79.01 Long term (current) use of anticoagulants; Z79.84 Long term (current) use of oral hypoglycemic drugs
CPT/HCPCS: 36415; 80053; 83690; 93005; 96361; 96374; 96375; 96376; 99285; 74177; 81003; 81015; 83735; 84443; 84484; 85025; 85610; 85730; 93010; J0780; J1200

== ENCOUNTER 2019-06-03 10:16 | Outpatient (CLI) | payer MEDICARE, MEDICAID, SELFPAY ==
[2019-06-03 11:12] LABS: INR 1.9 (0.9-1.1); Prothrombin Time 18.8 sec (9.3-11.0)
== END 2019-06-03 10:36 ==
PROVIDERS: PCP Family Medicine; Visit Provider Family Medicine
DX: I26.99 Other pulmonary embolism without acute cor pulmonale (principal); Z79.01 Long term (current) use of anticoagulants
CPT/HCPCS: 36415; 85610

== ENCOUNTER → 2019-06-12 11:15 | Outpatient (BNVA) | payer MEDICARE, MEDICAID, SELFPAY | PROVIDERS: PCP Family Medicine; Referring Provider Family Medicine; Visit Provider Surgery | DX: R10.13 Epigastric pain (principal) | CPT/HCPCS: 99204; 99215 ==

== ENCOUNTER 2019-06-20 09:16 | Day surgery (SDC) | payer MEDICARE, MEDICAID, SELFPAY ==
[2019-06-20 09:39] VITALS: BP 142/65; PULSE 104; RESP 18; TEMP 36.6; O2SAT 92
[2019-06-20 10:17] LABS: INR 1.6 (0.9-1.1); Prothrombin Time 15.5 sec (9.3-11.0)
[2019-06-20] MEDS: Lactated Ringers 1,000 ML 80 ML IV (10:47)
--- NOTE | 2019-06-20 10:50 | W.PM.DSUDISC ---
Discharge Plan Disposition Patient Disposition: HOME Condition: Good Discharge Details Reason For Visit: EGD Attending Provider: Estelle Hernandez Primary Care Provider: Jerman Powell Home Meds and New Rx's Prescriptions: Continued metformin 1,000 mg tablet 1,000 mg PO BID Qty: 180 RF: 4 ferrous See Rx Instructions PO DAILY RF: 0 baclofen 10 mg tablet 20 mg PO HS Qty: 90 RF: 4 hydrocodone-acetaminophen 10-325 mg tablet 1 tab PO Q6H MDD 4 tabs PRN (Reason: pain) Qty: 120 RF: 0 Elbow Sleeve 1 DAILY Qty: 1 RF: 0 Probiotic 1 EACH capsule 1 ea PO DAILY RF: 0 aspirin 81 MG tablet,chewable 81 mg PO DAILY RF: 0 triamcinolone acetonide 60 ML lotion 0 Topical HS Qty: 60 RF: 3 triamcinolone acetonide 15 GM cream 0 Topical BID Qty: 30 RF: 3 amitriptyline 25 mg tablet 25 mg PO DAILY Qty: 90 RF: 4 omeprazole 20 mg capsule,delayed release(DR/EC) 20 mg PO DAILY Qty: 90 RF: 4 warfarin [Coumadin] 5 mg tablet See Rx Instructions PO .COMPLEX Qty: 100 RF: 3 (DME) OneTouch Ultra Test strip 1 ea Miscellaneous BID Qty: 100 RF: 5 (DME) lancets [OneTouch UltraSoft Lancets] misc 1 ea Miscellaneous BID Qty: 100 RF: 4 dapsone 25 mg tablet 50 mg PO BID Qty: 240 RF: 6 magnesium oxide 400 mg (241.3 mg magnesium) tablet 1,200 mg PO TID Qty: 270 RF: 4 lorazepam [Ativan] 0.5 mg tablet 0.5 mg PO DAILY PRN (Reason: nausea and vomiting) Qty: 14 RF: 0 gabapentin 600 mg tablet 600 mg PO TID Qty: 270 RF: 4 pramipexole 0.125 mg tablet 0.125 mg PO QPM Qty: 30 RF: 0 omeprazole 40 mg capsule,delayed release(DR/EC) 40 mg PO HS RF: 0 Discharge Instructions Additional Instructions: Findings: Your EGD did not show any serious issues. Follow up: My office will contact you with routine biopsy results. If normal, can consider a gastric emptying study for further evaluation. Please call if you develop: fevers >101.5 Nausea or Vomiting Abdominal pain that is not transient DAY SURGERY UNIT POST EGD INSTRUCTIONS 1. Because there will be medication in your system for the next 24 hours, you may feel a little sleepy. Your coordination will be affected. Therefore: a. Do not drive or operate dangerous equipment for 24 hours. b. Do not drink alcohol beverages for 24 hours (not even beer). c. Plan to go home and rest for the day. 2. Generally there are no restrictions on your activity after a day or so has gone by, but you may feel a bit fatigued for a few days. 3 After you arrive home you may have a light meal and return to a normal diet as you can tolerate it without feeling sick to your stomach. 4. After surgery, you may feel pain or discomfort. This should be only transient, but if it persists please contact your doctor. 5. If there are any questions regarding the findings of your procedure, please feel free to contact your doctor. 6. If you are unable to contact your doctor with a problem, contact the hospital at [phone]. 7. Continue all your regular medications unless directed otherwise. I understand the above instructions and have no questions. Signature of Patient or Responsible Adult Escort Date/Time Name of Responsible Adult Escort Signature of Nurse Date/Time Activity:: Activity as Tolerated Diet:: As Tolerated Discharge Orders Discharge Orders: Discharge Order (Routine); Ordered 06/20/19 Ordered By: Estelle Hernandez DS: Diagnosis Discharge Diagnosis (1) Epigastric pain: Status: Acute
--- NOTE | 2019-06-20 11:15 | STOM_PTH ---
PATIENT: Janna Junior LOC: [facility] U#:[id number] AGE/SX: 63/F ROOM: RE06/20/[address]: Estelle Hernandez MD : [id number] BED: DIS: 06/20/2019 SPEC #: [id number] RECD: 06/20/19 12:36 STATUS: SHAINA REKurtis #: [id number] TELLO: 06/20/19 11:[address]: Estelle Hernandez DEPT: Surgical Specimen RECD BY: Rosemarie Flowers ENTERED: 06/20/19 12:37 SP TYPE: STOMACH OTHR DR: Jerman Powell MD Tissues: 1 - STOMACH BIOPSY 2 - STOMACH BIOPSY Procedures: GROSS AND MICRO LEVEL 4 Comments: [id number]
[2019-06-20 11:55] VITALS: BP 116/60; PULSE 87; RESP 16; TEMP 36.5; O2SAT 92
--- NOTE | 2019-06-20 12:21 | ENDO_ITS ---
DATE OF PROCEDURE: June 20, 2019 PREOPERATIVE DIAGNOSIS: 1. Epigastric pain. 2. Nausea. POSTOPERATIVE DIAGNOSIS: Unremarkable EGD. PROCEDURE: Esophagogastroduodenoscopy with duodenal biopsies and gastric biopsies. SURGEON: Estelle Hernandez M.D. ANESTHESIA: General. INDICATIONS: This is a 63-year-old woman who notes epigastric pain and nausea. This is mostly post- prandial. It lasts for several hours and is relieved by lying down. She has had a cholecystectomy. She also had a CT scan of the abdomen and pelvis that was unremarkable with the exception of some mi ld peripancreatic edema. PROCEDURE: She was placed in the left lateral decubitus position. Propofol was titrated to sedation . The scope was advanced into her esophagus under direct visualization and down into the stomach and duodenum. There was no duodenitis or ulcers noted. Biopsies were performed from the second portion of the duodenum. The stomach itself showed some hypertrophy of the mucosa in the body and fundus, b ut no other significant abnormalities. There was no significant hiatal hernia. Gastric biopsies wer e taken from the antrum. The GE junction exhibited no masses, Bowen's, inflammation or strictures. The air was suctioned from the stomach and the scope withdrawn with no esophageal lesions found. S he tolerated the procedure well and was stable to recovery. 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 cc: Jerman Powell M.D.
== END 2019-06-20 12:26 | disposition home or self-care (01) ==
PROVIDERS: PCP Family Medicine; Visit Provider Surgery
PROC: 0DJ68ZZ Inspection of Stomach, Via Natural or Artificial Opening Endoscopic (ICD-10-PCS; CPT 43235; principal; 2019-06-20 11:15)
DX: R10.13 Epigastric pain (principal); R11.0 Nausea; K31.89 Other diseases of stomach and duodenum; Z90.49 Acquired absence of other specified parts of digestive tract; E11.9 Type 2 diabetes mellitus without complications; Z79.84 Long term (current) use of oral hypoglycemic drugs
CPT/HCPCS: 43239; 36415; 88305; 85610

== ENCOUNTER 2019-06-30 01:14 | Outpatient (CLI) | payer MEDICARE, MEDICAID, SELFPAY ==
--- NOTE | 2019-06-30 13:30 | DI.CT_ITS ---
EXAM: CT ABDOMEN PELVIS CTA CLINICAL HISTORY: Evaluate for mesenteric ischemia R10.13 EPIGASTRIC PAIN TECHNIQUE: Imaging Protocol: Axial CT angiography was performed with multi-slice acquisition and m ulti-planar and/or 3D reconstructions. CONTRAST MATERIAL: Intravenous: Omnipaque 350 Contrast volume:100 ml contrast route:IV - Oral: No COMPARISON: CT ABDOMEN PELVIS W from 05/29/2019 FINDINGS: Vascular Structures: Abdomen: Celiac Alpine/SMA: No evidence of occlusion, significant stenosis or thrombus. There is mild atherosc lerosis at the ostia of both the celiac axis and the superior mesenteric artery. Renal Arteries: No evidence of occlusion or significant stenosis. There is atherosclerosis at the os tia of both renal arteries. There is a single renal artery perfusing each kidney. Aorta: No aneurysm. No dissection. Atherosclerosis is present. Pelvis: Iliac Arteries: No evidence of occlusion. Common Femoral Arteries: No evidence of significant stenosis. Soft Tissues: Liver: Unremarkable Gallbladder and biliary tract: Status post cholecystectomy. No biliary ductal dilatation. Pancreas: Unremarkable. Spleen: Unremarkable. Kidneys: Normal size, contour and axis. No radiodense stones or obstructive uropathy. No masses seen. Adrenal glands: No masses seen. Aorta: No aneurysm. No dissection. Atherosclerosis is present. Bladder: Symmetric distention, no gross wall thickening. Bowel: No obstruction or bowel wall thickening. Peritoneal cavity: No ascites, collection or mesenteric inflammatory response. There is a stent exten ding from the left common iliac vein into the inferior vena cava. There is a small fat containing calhoun praumbilical abdominal wall hernia. Bones: Multilevel degenerative changes are present. If symptomatic further imaging may be performed. IMPRESSION: Atherosclerosis. No evidence of significant stenosis or occlusion DATA REPOSITORY: All CT scans at this facility are submitted to the National Radiology Data Registry (NRDR) Dose Index Registry (DIR) with the [employer] (ACR). RADIATION OPTIMIZATION: All CT scans at this facility use at least one of these dose optimization te chniques: automated exposure control; mA and/or kV adjustment per patient size (includes targeted exa ms where dose is matched to clinical indication); or iterative reconstruction.
[2019-06-30] MEDS: Omnipaque 350 MG/ML 100 ML BTL IJ (13:31)
== END 2019-06-30 01:34 ==
PROVIDERS: PCP Family Medicine; Visit Provider Surgery
DX: R10.13 Epigastric pain (principal); I70.0 Atherosclerosis of aorta; Z90.49 Acquired absence of other specified parts of digestive tract; K43.9 Ventral hernia without obstruction or gangrene
CPT/HCPCS: 74174; J3490

== ENCOUNTER 2019-06-30 12:29 | Outpatient (CLI) | payer MEDICARE, MEDICAID, SELFPAY ==
[2019-06-30 14:03] LABS: Prothrombin Time 19.7 sec (9.3-11.0)
== END 2019-06-30 12:49 ==
PROVIDERS: PCP Family Medicine; Visit Provider Family Medicine
DX: I26.99 Other pulmonary embolism without acute cor pulmonale (principal); Z79.01 Long term (current) use of anticoagulants; R10.13 Epigastric pain; I70.0 Atherosclerosis of aorta; K43.9 Ventral hernia without obstruction or gangrene; Z90.49 Acquired absence of other specified parts of digestive tract
CPT/HCPCS: 36415; 74174; 85610; J3490

== ENCOUNTER 2019-09-02 07:00 | Outpatient (CLI) | payer MEDICARE, MEDICAID, SELFPAY ==
[2019-09-02 12:33] LABS: INR 1.5 (0.9-1.1); Prothrombin Time 15.2 sec (9.3-11.0)
[2019-09-02 12:49] LABS: Magnesium 1.7 mg/dL (1.8-2.4)
== END 2019-09-02 07:20 ==
PROVIDERS: PCP Family Medicine; Visit Provider Family Medicine
DX: E83.42 Hypomagnesemia (principal); I26.99 Other pulmonary embolism without acute cor pulmonale; Z79.01 Long term (current) use of anticoagulants
CPT/HCPCS: 36415; 83735; 85610

== ENCOUNTER 2019-09-17 08:58 | Outpatient (CLI) | payer MEDICARE, MEDICAID, SELFPAY ==
[2019-09-17 09:32] LABS: Prothrombin Time 19.7 sec (9.3-11.0)
== END 2019-09-17 09:18 ==
PROVIDERS: PCP Family Medicine; Visit Provider Family Medicine
DX: I26.99 Other pulmonary embolism without acute cor pulmonale (principal); Z79.01 Long term (current) use of anticoagulants
CPT/HCPCS: 36415; 85610

== ENCOUNTER 2019-10-21 07:24 | Outpatient (CLI) | payer MEDICARE, SELFPAY ==
[2019-10-21 12:27] LABS: INR 2.4 (0.9-1.1); Prothrombin Time 23.7 sec (9.3-11.0)
== END 2019-10-21 07:44 ==
PROVIDERS: PCP Family Medicine; Visit Provider Family Medicine
DX: I26.99 Other pulmonary embolism without acute cor pulmonale (principal); Z79.01 Long term (current) use of anticoagulants
CPT/HCPCS: 36415; 85610

== ENCOUNTER 2019-11-05 07:09 | Outpatient (CLI) | payer MEDICARE, SELFPAY ==
[2019-11-05 12:16] LABS: INR 1.9 (0.9-1.1); Prothrombin Time 18.6 sec (9.3-11.0)
== END 2019-11-05 07:29 ==
PROVIDERS: PCP Family Medicine; Visit Provider Family Medicine
DX: I26.99 Other pulmonary embolism without acute cor pulmonale (principal); Z79.01 Long term (current) use of anticoagulants
CPT/HCPCS: 36415; 85610

== ENCOUNTER 2020-02-09 21:52 | Outpatient (REF) | payer MEDICARE, SELFPAY | END 2020-02-09 22:12 | LOC: LBN 21:52 | PROVIDERS: PCP Family Medicine; Visit Provider Nurse Practitioner Family | DX: N39.0 Urinary tract infection, site not specified (principal) | CPT/HCPCS: 87086 ==

== ENCOUNTER 2020-03-09 07:05 | Outpatient (CLI) | payer MEDICARE, SELFPAY ==
[2020-03-09 12:29] LABS: HCT 37.9 % (36.0-46.0); HGB 11.8 g/dL (12.0-15.5); Mean Corp. HGB Concentration 31.1 g/dL (32.0-36.0); Mean Corpuscular Hemoglobin 30.6 pg (27.0-33.0); Mean Corpuscular Volume 98.4 fL (80-95); Platelet Count 225 x1000/uL (130-400); RBC 3.85 m/cumm (4.00-5.20); RBC Distribution Width 13.6 % (11.7-14.6); White Blood Cell Count 6.61 k/cumm (4.4-10.8)
[2020-03-09 12:37] LABS: Iron 78 ug/dL (50-170); Total Iron Binding Capacity 448 ug/dL (250-450); Transferrin Sat 17 % (15-50)
[2020-03-09 13:15] LABS: Anion Gap 10.4 mmol/L (3-11); BUN 10 mg/dL (7-18); CO2 26.6 mmol/L (21.0-32.0); Calcium 9.6 mg/dL (8.5-10.1); Chloride 100 mmol/L (98-107); Ferritin 23 ng/mL (8-252); Glucose 138 mg/dL (74-106); Potassium 4.6 mmol/L (3.5-5.1); Sodium 137 mmol/L (136-145)
[2020-03-09 13:33] LABS: INR 2.6 (0.9-1.1); Prothrombin Time 25.3 sec (9.3-11.0)
== END 2020-03-09 07:25 ==
PROVIDERS: PCP Family Medicine; Visit Provider Family Medicine
DX: I10 Essential (primary) hypertension (principal); D64.9 Anemia, unspecified; I26.99 Other pulmonary embolism without acute cor pulmonale; Z79.01 Long term (current) use of anticoagulants
CPT/HCPCS: 36415; 80048; 85027; 82728; 83540; 83550; 85610

== ENCOUNTER 2020-04-22 04:33 | Outpatient (CLI) | payer MEDICARE, SELFPAY ==
[2020-04-22 12:36] LABS: INR 2.5 (0.9-1.1); Prothrombin Time 24.6 sec (9.3-11.0)
== END 2020-04-22 04:53 ==
PROVIDERS: PCP Family Medicine; Visit Provider Family Medicine
DX: I26.99 Other pulmonary embolism without acute cor pulmonale (principal); Z79.01 Long term (current) use of anticoagulants
CPT/HCPCS: 36415; 85610

== ENCOUNTER 2020-07-30 04:44 | Outpatient (CLI) | payer MEDICARE, SELFPAY ==
[2020-07-30 13:46] LABS: Prothrombin Time 19.7 sec (9.3-11.0)
== END 2020-07-30 05:04 ==
PROVIDERS: PCP Family Medicine; Visit Provider Family Medicine
DX: I26.99 Other pulmonary embolism without acute cor pulmonale (principal); Z79.01 Long term (current) use of anticoagulants
CPT/HCPCS: 36415; 85610

== ENCOUNTER 2020-09-22 19:21 | Outpatient (REF) | payer MEDICARE, SELFPAY ==
[2020-09-22 21:43] LABS: Abs Immature Grans 0.02 10^3/uL (0.0-0.06); Absolute Basophil Count 0.03 10^3/uL (0.0-0.2); Absolute Eosinophil Count 0.15 10^3/uL (0.0-0.7); Absolute Lymphocyte Count 1.27 10^3/uL (1.2-3.4); Absolute Monocyte Count 0.56 10^3/uL (0.1-0.8); Absolute Neutrophil Count 4.19 10^3/uL (1.2-6.7); Basophils % 0.5; Eosinophils % 2.4; HCT 33.6 % (36.0-46.0); HGB 10.1 g/dL (11.2-15.7); Immature Grans % 0.3; Lymphocytes % 20.4; MCH 29.1 pg (27.0-33.0); MCHC 30.1 % (32.0-36.0); MCV 96.8 fL (80-95); MPV 11.9 fL (8.0-11.0); Neutrophils % 67.4; Nucleated RBC 0 %; Platelet Count 211 10^3/uL (130-400); RBC 3.47 10^6/uL (3.93-5.22); RDW 15.2 % (11.7-14.6); RDW-SD 54.5 fL; WBC 6.22 10^3/uL (4.4-10.8)
[2020-09-22 22:04] LABS: Iron 44 ug/dL (50-170); Total Iron Binding Capacity 457 ug/dL (250-450); Transferrin Sat 10 % (15-50)
[2020-09-22 22:05] LABS: ALT 40 U/L (14-59); AST 34 U/L (15-37); Albumin 3.4 g/dL (3.4-5.0); Alkaline Phosphatase 151 U/L (46-116); Anion Gap 7.7 mmol/L (3-11); BUN 12 mg/dL (7-18); Bilirubin, Total 0.3 mg/dL (0.2-1.0); CO2 28.3 mmol/L (21.0-32.0); CREATININE 0.8 mg/dL (0.55-1.02); Calcium 8.8 mg/dL (8.5-10.1); Chloride 103 mmol/L (98-107); Glucose 182 mg/dL (74-106); Potassium 4.4 mmol/L (3.5-5.1); Sodium 139 mmol/L (136-145); TSH 1.66 uIU/mL (0.36-3.74); Total Protein 7.5 g/dL (6.4-8.2)
[2020-09-22 22:10] LABS: Hemoglobin A1C 4.8 % (<5.7)
== END 2020-09-22 19:22 | disposition home or self-care (01) ==
LOC: LBN 19:21
PROVIDERS: PCP Family Medicine; Visit Provider Emergency Medicine
DX: I10 Essential (primary) hypertension (principal); R53.83 Other fatigue; K90.0 Celiac disease; E11.9 Type 2 diabetes mellitus without complications; E03.9 Hypothyroidism, unspecified
CPT/HCPCS: 80053; 83036; 83540; 83550; 84443; 85025

== ENCOUNTER 2021-02-07 07:19 | Emergency (ER) | payer MEDICARE, SELFPAY ==
[2021-02-07 07:23] VITALS: BP 155/89; PULSE 96; RESP 18; TEMP 36.4; O2SAT 99
--- OUTSIDE RECORDS SUMMARY | 2021-02-07 07:25 | XMS_ITS ---
:1955 Author Care Team Providers Name Role Phone DR. CLAUDIA BELL Primary Care Provider [phone] DR. CLAUDIA BELL Referring Provider [phone] Allergies Code Code Name Reaction Severity Status Onset System Adhesive Tape Rash ? Active ? 723 RxNorm Amoxicillin Nausea ? Active ? 46896 RxNorm Azithromycin Respiratory ? Active ? Distress 612931 RxNorm Bactrim ? ? Active ? 045224 RxNorm Maxalt ? ? Active ? 38558 RxNorm Rizatriptan ? ? Active ? 97433 RxNorm Sertraline ? ? Active ? 67877 RxNorm Sulfamethoxazole ? ? Active ? 20328 RxNorm Tramadol Nausea ? Active ? 50674 RxNorm Trimethoprim ? ? Active ? 38628 RxNorm Venlafaxine ? ? Active ? [id number] RxNorm Wheat ? ? Active ? Medications Name Status Start Date Stop Date ? ? albuterol sulfate HFA 90 mcg/actuation aerosol inhaler Completed ? 05/21/2018 Inhale 2 puffs every 6 hours by inhalation route as needed. amitriptyline 25 mg tablet Active ? Not a vailable Take 1 tablet every day by oral route. aspirin 81 mg tablet,delayed release Active ? Not available Take 1 tablet every day by oral route. baclofen 10 mg tablet Active ? Not availa ble Take 2 tablets every day by oral route at bedtime. chlorhexidine gluconate 0.12 % mouthwash Completed ? 05/21/2018 Place 15 mL twice a day by mucous membrane route. dapsone 25 mg tablet Active ? Not availab le Take 2 tablets twice a day by oral route. gabapentin 300 mg capsule Active ? Not av ailable Take 2 capsules 3 times a day by oral route. hydrocodone 10 mg-acetaminophen 325 mg tablet Active ? Not available Take 1 tablet every 6 hours by oral route as needed. Lactobac. acidophilus-Bifido. animalis 10 billion cell chewable tablet Completed ? 05/21/2018 Take 1 tablet every day by oral route. loperamide 2 mg tablet Completed ? 8 Take 1 tablet 4 times a day by oral route as needed. magnesium 400 mg (as magnesium oxide) capsule Active ? Not available Take 2 capsules 3 times a day by oral route. metformin 1,000 mg tablet Active ? Not av ailable Take 1 tablet twice a day by oral route. nystatin 100,000 unit/mL oral suspension Completed ? 05/21/2018 Take 5 mL 4 times a day by oral route. omeprazole 20 mg capsule,delayed release Active ? Not available Take 1 capsule every day by oral route. OneTouch Ultra Test strips Active ? Not a vailable test twice daily triamcinolone acetonide 0.1 % lotion Active ? Not available APPLY A THIN LAYER TO THE AFFECTED AREA(S) BY TOPICAL ROUTE 2 T IMES PER DAY triamcinolone acetonide 0.1 % topical cream Active ? Not available APPLY A THIN LAYER TO THE AFFECTED AREA(S) BY TOPICAL ROUTE 2 T IMES PER DAY warfarin 5 mg tablet Active ? Not availab le Take 1 tablet every day by oral route. Problems Name Status Onset Date Source ? Ulcer of Mouth Active 05/20/2018 ? Pain in Left Foot Active 05/20/2018 ? Type 2 Diabetes Mellitus Active 05/21/2018 ? Diabetic Peripheral Neuropathy Active 05/21/2018 ? Hyperlipidemia Active 05/21/2018 ? Obesity Active 05/21/2018 ? Smoker Active 05/21/2018 ? Depressive Disorder Active 05/21/2018 ? Migraine Active 05/21/2018 ? Ulnar Neuropathy Active 05/21/2018 ? Intermittent Claudication Active 05/21/2018 ? Venous Insufficiency of Leg Active 05/21/2018 ? Chronic Obstructive Lung Disease Active 05/21/2018 ? Gastroesophageal Reflux Disease Active 05/21/2018 ? Irritable Bowel Syndrome with Diarrhea Active 8 ? Dermatitis Herpetiformis Active 05/21/2018 ? Stafford - Lesion Active 05/21/2018 ? Foot Callus Active 05/21/2018 ? Spinal Stenosis Active 05/21/2018 ? Low Back Pain Active 05/21/2018 ? Sciatica Active 05/21/2018 ? Bursitis of Shoulder Active 05/21/2018 ? Plantar Fasciitis Active 05/21/2018 ? Foot Pain Active 05/21/2018 ? Foot Swelling Active 05/21/2018 ? Cramp in Lower Limb Active 05/21/2018 ? Vomiting Active 05/21/2018 ? History of Pulmonary Embolus Active 05/21/2018 ? Anticoagulant Therapy Active 05/21/2018 ? Cramp in Lower Limb Associated with Sleep Unknown 2017 ? Medial Epicondylitis of Left Humerus Active 05/21/2018 ? Carpal Tunnel Syndrome of Right Wrist Active 05/21/2018 ? Procedures None recorded. Results Lab Results None recorded. Past Encounters None recorded. Social History Tobacco Smoking Status Current Every Day Smoker Notes: Vaccine List Vaccine Type pneumococcal polysaccharide PPV23 04/30/2012 Tdap 05/17/2015 zoster, unspecified formulation 03/13/2017 Plan of Care Reminders Provider Appointments None ? ? recorded. Lab None ? ? recorded. Referral None ? ? recorded. Procedures None ? ? recorded. Surgeries None ? ? recorded. Imaging None ? ? recorded. Vitals 09/10/2018 03:30PM ACUTE Height Weight BMI Blood Pressure 157.48 cm 69.85 kg 28.2 kg/m2 116/54 mm[Hg] 05/21/2018 02:00PM NEW PATIENT Height Weight BMI Blood Pressure 157.48 cm 69.85 kg 28.2 kg/m2 124/68 mm[Hg]
--- NOTE | 2021-02-07 07:55 | ED.GENADUL_ITS ---
Discharge Plan Disposition Patient Disposition: HOME Condition: Stable Discharge Details Clinical Impression: Hoarseness of voice, Sore throat, Chronic anemia, Abnormal LFTs (liver function tests) Primary Care Provider: Renzo Castano ED Provider: Eliza Carmen Meds and New Rx's Prescriptions: Continued lisinopril 5 mg tablet 5 mg PO DAILY Qty: 30 RF: 0 lorazepam [Ativan] 0.5 mg tablet 0.5 mg PO DAILY PRN (Reason: nausea and vomiting) Qty: 14 RF: 0 (DME) blood-glucose meter [OneTouch Ultra2 Meter] Kit See Rx Instructions .ROUTE .MEDSUPPLY Qty: 1 RF: 0 warfarin 5 mg tablet See Rx Instructions mg PO .COMPLEX Qty: 100 RF: 3 hydrocodone-acetaminophen 10-325 mg tablet 1 tab PO Q6H MDD 4 tabs PRN (Reason: chronic pain) Qty: 120 RF: 0 Elbow Sleeve 1 DAILY Qty: 1 RF: 0 Probiotic 1 EACH capsule 1 ea PO DAILY RF: 0 aspirin 81 MG tablet,chewable 81 mg PO DAILY RF: 0 triamcinolone acetonide 60 ML lotion 1 applic Topical HS Qty: 60 RF: 3 (DME) lancets [OneTouch Delica Lancets] 33 gauge misc See Rx Instructions .ROUTE DAILY Qty: 100 RF: 4 (DME) blood sugar diagnostic Strip 1 ea Miscellaneous BID Qty: 200 RF: 5 (DME) lancets [OneTouch UltraSoft Lancets] Misc 1 ea Miscellaneous BID Qty: 100 RF: 4 omeprazole 40 mg capsule,delayed release(DR/EC) 40 mg PO HS Qty: 90 RF: 3 baclofen 10 mg tablet 20 mg PO HS Qty: 90 RF: 1 amitriptyline 25 mg tablet 25 mg PO DAILY Qty: 90 RF: 4 dapsone 25 mg tablet 50 mg PO BID Qty: 240 RF: 3 gabapentin 600 mg tablet 600 mg PO TID Qty: 270 RF: 2 magnesium oxide 400 mg (241.3 mg magnesium) tablet 1,200 mg PO TID Qty: 270 RF: 4 metformin 1,000 mg tablet 1,000 mg PO BID Qty: 180 RF: 4 Discharge Instructions Instructions: Pharyngitis (ED), Laryngitis (ED) Additional Instructions: Please return immediately to the emergency department if you develop any new or worsening symptoms, if your condition does not improve as expected, or if you become otherwise concerned. It is extremely important that you call soon as possible to make an appointment to be seen in follow-up for this visit by your primary care doctor. Referrals: Renzo Castano, DANCER OR CHOREOGRAPHER [Primary Care Provider] - Discharge Data Discharge Date/Time-TO BE ENTERED AT DEPARTURE: 02/07/21 11:03 Medical Decision Making Janna Junior is a 65 y/o woman with a history of diabetes, dermatitis herpetiformis, pulmonary embolism on Coumadin, hyperlipidemia, peripheral vascular disease who presented to the emergency department with hoarse voice since yesterday accompanied by mild sore throat. On exam patient is very well and nontoxic-appearing. Voice is somewhat hoarse. No abnormality of the intraoral cavity or posterior pharynx noted. Full painless range of motion of the neck. Neck is supple. Concern for laryngitis, mild pharyngitis, given multiple comorbidities, complaint of sore throat with normal appearance posterior pharynx, voice change, also concern for possible early epiglottitis, abscess versus other. Exam/history at this time is not concerning with impending airway compromise, sepsis, meningitis, acute coronary syndrome. Plan for screening labs, IV placement, CT neck. Pt is not vaccinated against COVID. Vaccination offered in ED, Pt refused. Labs reviewed, significant for chronic anemia, elevated AST, elevated alk phos. CT per radiology shows no abnormality. I went to reassess the patient and discussed CT results with her. Patient states she wanted to leave immediately, requests no further intervention. I had a lengthy discussion with Patient regarding return to emergency department precautions, home care, and importance of outpatient follow-up. When I attempted to discuss COVID precautions as COVID test pending and ask if she had questions, Pt stated that she wanted to leave immediately without further intervention or discussion, stated, I don't want to talk to a [facility] doctor. Disposition decision was made weighing the risks and benefits of hospitalization versus outpatient treatment, the risk for further decompensation, and the patient's wishes. Medical Records Medical records reviewed: Yes I reviewed the patient's medical records. Imaging Data Radiologic Study: Attestation: I personally reviewed and interpreted this imaging study as follows: Radiologist's impression: EXAM: CT NECK W CLINICAL HISTORY: sore throat, hoarse voice. TECHNIQUE: Imaging Protocol: Axial CT angiography was performed with multi- slice acquisition and multi-planar and/or 3D reconstructions. CONTRAST MATERIAL: Intravenous: Omnipaque 350 Contrast volume:100 cc COMPARISON: No exams were available for comparison FINDINGS: Tissues of the nasopharynx appear symmetrical. Uvula is midline. There are no obvious masses at the level of the oropharynx. No gross enlargement of the tonsils. Hypopharynx unremarkable. No evidence of retropharyngeal abscess. Epiglottis and valleculae appear unremarkable as do the aryepiglottic folds. No obvious masses of the level the vocal cords and subglottic airway. Visualized thyroid gland appears unremarkable. Submandibular and parotid glands unremarkable. No obvious lymphadenopathy in the neck. No supraclavicular adenopathy. IMPRESSION: 1. No evidence of mass nor abscess. 2. No lymphadenopathy in the neck and supraclavicular regions. Lab Data Lab results reviewed: Yes I reviewed the patient's lab results. Labs: Laboratory Tests Range/Units 02/07/21 02/07/21 08:30 08:30 WBC (4.4-10.8) 10^3/uL 6.29 RBC (3.93-5.22) 10^6/uL 3.68 L Hgb (11.2-15.7) g/dL 10.5 L Hct (36.0-46.0) % 34.6 L MCV (80-95) fL 94.0 MCH (27.0-33.0) pg 28.5 MCHC (32.0-36.0) % 30.3 L RDW (11.7-14.6) % 15.4 H Plt Count (130-400) 10^3/uL 231 MPV (8.0-11.0) fL 10.2 Immature Gran % 0.3 Neutrophils % 67.0 Lymphocytes % 23.2 Monocytes % 7.6 Eosinophils % 1.4 Basophils % 0.5 Nucleated RBC % % 0 Absolute Neutrophils (1.2-6.7) 10^3/uL 4.21 Absolute Lymphocytes (1.2-3.4) 10^3/uL 1.46 Absolute Monocytes (0.1-0.8) 10^3/uL 0.48 Absolute Eosinophils (0.0-0.7) 10^3/uL 0.09 Absolute Basophils (0.0-0.2) 10^3/uL 0.03 Sodium (136-145) mmol/L 138 Potassium (3.5-5.1) mmol/L 4.9 Chloride (98-107) mmol/L 100 Carbon Dioxide (21.0-32.0) mmol/L 28.8 Anion Gap (3-11) mmol/L 9.2 BUN (7-18) mg/dL 11 Creatinine (0.55-1.02) mg/dL 0.9 Estimated GFR/1.73 m2 (mL/min/1.73m2) >= 60.00 Glucose (74-106) mg/dL 105 Calcium (8.5-10.1) mg/dL 9.4 Total Bilirubin (0.2-1.0) mg/dL 0.3 AST (15-37) U/L 49 H ALT (14-59) U/L 47 Alkaline Phosphatase (46-116) U/L 148 H Total Protein (6.4-8.2) g/dL 8.7 H Albumin (3.4-5.0) g/dL 3.7 More meds no less HPI General Mode of arrival: ambulatory . Date/Time Provider Initiated Documentation: 02/07/21 07:45 . Limitations to Documentation: no limitations . Information obtained by: patient, RN notes reviewed and old records reviewed . HPI Narrative: Janna Kearns is a 65-year-old woman with a history of peripheral vascular disease, pulmonary embolism on Coumadin, diabetes, dermatitis herpetiformis presenting to emergency department with sore throat. Patient reports that since yesterday she has had a hoarse voice, a mild sore throat, and a sensation of difficulty swallowing. Patient reports that this morning she also briefly had a sensation that she could not breathe due to throat symptoms, although she has not had further episodes of this and states she is currently having no trouble breathing. No other shortness of breath. Patient reports that she has been able to eat and drink normally since onset of symptoms. Patient reports that she slept flat in her bed with one pillow last night as usual without issue. Patient reports that she has had skin problems for years, in which she developed nodules under her skin that then popped and caused scarring. Patient reports that this has been worse over the past few months. She has seen her PCP for this and is scheduled to see dermatology in March. She reports no acute worsening or change in her skin complaint, but states that she is concerned that these lesions may now be in her throat and causing her symptoms. She denies any other pain, fever, vomiting, diarrhea, shortness of breath, numbness, weakness. Patient reports chronic cough. Related Data Home Medications Medication Instructions Recorded Confirmed Probiotic 1 ea PO DAILY 07/04/16 02/07/21 aspirin 81 mg PO DAILY tab.chew 03/20/17 02/07/21 triamcinolone acetonide 1 applic TOPICAL HS #60 ml 12/04/17 02/07/21 blood-glucose meter #1 each 04/23/20 01/14/21 blood sugar diagnostic #200 strip 06/09/20 01/14/21 lancets 33 gauge #100 each 06/09/20 01/14/21 lancets #100 ea 06/27/20 01/14/21 omeprazole 40 mg capsule,delayed 40 mg PO HS #90 cap 07/12/20 02/07/21 release baclofen 10 mg tablet 20 mg PO HS #90 tab-cap 09/08/20 02/07/21 amitriptyline 25 mg tablet 25 mg PO DAILY #90 tab-cap 10/04/20 02/07/21 dapsone 25 mg tablet 50 mg PO BID #240 tab-cap 10/04/20 02/07/21 gabapentin 600 mg tablet 600 mg PO TID #270 tab 10/04/20 02/07/21 magnesium oxide 400 mg (241.3 mg 1,200 mg PO TID #270 tab 10/04/20 02/07/21 magnesium) tablet metformin 1,000 mg tablet 1,000 mg PO BID #180 tab-cap 10/04/20 02/07/21 lisinopril 5 mg tablet 5 mg PO DAILY #30 tab 12/09/20 02/07/21 lorazepam 0.5 mg tablet 0.5 mg PO DAILY PRN #14 tab 12/09/20 02/07/21 hydrocodone 10 mg-acetaminophen 1 tab PO Q6H PRN #120 tab MDD 4 01/06/21 02/07/21 325 mg tablet tabs warfarin 5 mg tablet See Rx Instructions PO .COMPLEX 01/06/21 02/07/21 #100 tab Previous Rx's Medication Instructions Recorded blood-glucose meter #1 each 04/23/20 blood sugar diagnostic #200 strip 06/09/20 lancets 33 gauge #100 each 06/09/20 lancets #100 ea 06/27/20 omeprazole 40 mg capsule,delayed 40 mg PO HS #90 cap 07/12/20 release baclofen 10 mg tablet 20 mg PO HS #90 tab-cap 09/08/20 amitriptyline 25 mg tablet 25 mg PO DAILY #90 tab-cap 10/04/20 dapsone 25 mg tablet 50 mg PO BID #240 tab-cap 10/04/20 gabapentin 600 mg tablet 600 mg PO TID #270 tab 10/04/20 magnesium oxide 400 mg (241.3 mg 1,200 mg PO TID #270 tab 10/04/20 magnesium) tablet metformin 1,000 mg tablet 1,000 mg PO BID #180 tab-cap 10/04/20 lisinopril 5 mg tablet 5 mg PO DAILY #30 tab 12/09/20 lorazepam 0.5 mg tablet 0.5 mg PO DAILY PRN #14 tab 12/09/20 hydrocodone 10 mg-acetaminophen 1 tab PO Q6H PRN #120 tab MDD 4 01/06/21 325 mg tablet tabs warfarin 5 mg tablet See Rx Instructions PO .COMPLEX 01/06/21 #100 tab Allergies Allergy/AdvReac Type Severity Reaction Status Date / Time rizatriptan benzoate Allergy Severe tongue Verified 02/07/21 07:36 [From Maxalt] swelling, diff.swallowing per pt azithromycin Allergy Intermediate SOB-pt Verified 02/07/21 07:36 reported sulfamethoxazole Allergy Intermediate Verified 02/07/21 07:28 trimethoprim [From Bactrim] Allergy Intermediate Verified 02/07/21 07:28 adhesive Allergy RASH Verified 02/07/21 07:28 wheat Allergy SKIN RASH Verified 02/07/21 07:28 sertraline AdvReac Intermediate sweating Verified 02/07/21 07:28 tramadol AdvReac Intermediate Nausea Verified 02/07/21 07:28 venlafaxine AdvReac Intermediate sweating,fa Verified 02/07/21 07:36 tigue,malai se amoxicillin AdvReac GI UPSET Verified 02/07/21 07:28 ondansetron [From Zofran] AdvReac can taste Verified 02/07/21 07:28 pill for days...per pt promethazine AdvReac milton Verified 02/07/21 07:28 General Stated Complaint: Sorethroat JOSE JUAN: 3 Review of Systems Narrative: Constitutional: denies fevers Eyes: denies eye pain ENT: denies ear pain, dental pain, reports mild sore throat, voice changes Cardiovascular: denies chest pain, edema Respiratory: denies SOB, reports chronic unchanged cough GI: denies abdominal pain, vomiting, diarrhea : denies flank pain MSK: denies back pain, neck pain, arthralgias, myalgias Skin: Reports chronic unchanged skin rash as per HPI Neuro: denies headaches, numbness, weakness PFSH Medical History Diabetes mellitus DVT (deep venous thrombosis) Fatigue GERD (gastroesophageal reflux disease) Nausea & vomiting Pulmonary embolism Zoster Surgical History (Updated 03/04/20 @ 14:44 by Jerman Powell MD) section History of carpal tunnel surgery of left wrist History of section Hx of cholecystectomy Family History Mother Personal history of malignant neoplasm BONE,THYROID,BACK,LIVER,BLADDER,BREAST Father Asthma Sister No problems noted. Brother No problems noted. Social History Smoking/Tobacco Use Status: Current every day Tobacco Type: cigarettes Smoking risk assessment performed?: Yes Alcohol Intake: never Drug use: Never Substance use type: does not use Household members: spouse What type of physical activity do you participate in: none Do you feel safe at home: Yes Do you feel safe in your relationship?: Yes Exam Narrative Exam Narrative: Constitutional: well and [id number], pleasant, conversing normally HENT: head atraumatic/normocephalic/normal inspection, mucous membranes moist, somewhat hoarse voice, normal examination of the posterior pharynx without erythema, edema, or lesion, no intraoral lesions, no drooling, no pooling of secretions Eyes: conjunctiva normal, sclera normal, pupils 3mm b/l Neck: no stridor, full painless ROM, trachea midline Resp: normal work of breathing, speaking in full sentences Cardio: normal rate, normal rhythm, Skin: warm, dry, normal color, 3 mm nodule left forearm without erythema/vesicle/other overlying skin changes (patient reports this as typical of her chronic skin rash), no other nodules or skin changes noted Neuro: alert, not altered, grossly non-focal, normal tone Ext: no edema Psych: normal mood, normal affect, normal behavior Course Vital Signs Vital signs: Vital Signs Temperature 36.4 C L 02/07/21 07:23 Pulse 96 H 02/07/21 07:23 Respiratory Rate 18 02/07/21 07:23 Blood Pressure 155/89 H 02/07/21 07:23 Pulse Oximetry 99 02/07/21 07:23 Temperature 36.4 C L 02/07/21 07:23 Temperature Source Skin 02/07/21 07:23 Pulse 96 H 02/07/21 07:23 Respiratory Rate 18 02/07/21 07:23 Respiratory Effort Non-Labored 02/07/21 07:27 Blood Pressure 155/89 H 02/07/21 07:23 Blood Pressure Position Sitting 02/07/21 07:23 Pulse Oximetry 99 02/07/21 07:23 Oxygen Delivery Method Room Air 02/07/21 07:23 Oxygen Flow Rate 0 02/07/21 07:23 Pain Level 2 02/07/21 07:23
[2021-02-07 08:39] LABS: Abs Immature Grans 0.02 10^3/uL (0.0-0.06); Absolute Basophil Count 0.03 10^3/uL (0.0-0.2); Absolute Eosinophil Count 0.09 10^3/uL (0.0-0.7); Absolute Lymphocyte Count 1.46 10^3/uL (1.2-3.4); Absolute Monocyte Count 0.48 10^3/uL (0.1-0.8); Absolute Neutrophil Count 4.21 10^3/uL (1.2-6.7); Basophils % 0.5; Eosinophils % 1.4; HCT 34.6 % (36.0-46.0); HGB 10.5 g/dL (11.2-15.7); Immature Grans % 0.3; Lymphocytes % 23.2; MCH 28.5 pg (27.0-33.0); MCHC 30.3 % (32.0-36.0); MPV 10.2 fL (8.0-11.0); Monocytes % 7.6; Nucleated RBC 0 %; Platelet Count 231 10^3/uL (130-400); RBC 3.68 10^6/uL (3.93-5.22); RDW 15.4 % (11.7-14.6); WBC 6.29 10^3/uL (4.4-10.8)
[2021-02-07 08:53] LABS: ALT 47 U/L (14-59); AST 49 U/L (15-37); Albumin 3.7 g/dL (3.4-5.0); Alkaline Phosphatase 148 U/L (46-116); Anion Gap 9.2 mmol/L (3-11); BUN 11 mg/dL (7-18); Bilirubin, Total 0.3 mg/dL (0.2-1.0); CO2 28.8 mmol/L (21.0-32.0); CREATININE 0.9 mg/dL (0.55-1.02); Calcium 9.4 mg/dL (8.5-10.1); Chloride 100 mmol/L (98-107); Glucose 105 mg/dL (74-106); Potassium 4.9 mmol/L (3.5-5.1); Sodium 138 mmol/L (136-145); Total Protein 8.7 g/dL (6.4-8.2)
[2021-02-07] MEDS: Normal Saline - Diluent 50 ML VIAL IV (09:23)
[2021-02-07] MEDS: Omnipaque 350 MG/ML 100 ML BTL IJ (09:24)
--- NOTE | 2021-02-07 09:36 | DI.CT_ITS ---
Exam(s) CT NECK W EXAM: CT NECK W CLINICAL HISTORY: sore throat, hoarse voice. TECHNIQUE: Imaging Protocol: Axial CT angiography was performed with multi-slice acquisition and mu lti-planar and/or 3D reconstructions. CONTRAST MATERIAL: Intravenous: Omnipaque 350 Contrast volume:100 cc COMPARISON: No exams were available for comparison FINDINGS: Tissues of the nasopharynx appear symmetrical. Uvula is midline. There are no obvious masses at the level of the oropharynx. No gross enlargement of the tonsils. Hypopharynx unremarkable. No eviden ce of retropharyngeal abscess. Epiglottis and valleculae appear unremarkable as do the aryepiglottic folds. No obvious masses of the level the vocal cords and subglottic airway. Visualized thyroid gland appears unremarkable. Submandibular and parotid glands unremarkable. No obvious lymphadenopathy in the neck. No supraclavicular adenopathy. IMPRESSION: 1. No evidence of mass nor abscess. 2. No lymphadenopathy in the neck and supraclavicular regions. RADIATION DOSE DELIVERED: 431.12mGy.cm Total DLP DATA REPOSITORY: All CT scans at this facility are submitted to the National Radiology Data Registry (NRDR) Dose Index Registry (DIR) with the [employer] (ACR). RADIATION OPTIMIZATION: All CT scans at this facility use at least one of these dose optimization te chniques: automated exposure control; mA and/or kV adjustment per patient size (includes targeted exa ms where dose is matched to clinical indication); or iterative reconstruction.
[2021-02-07 10:15] LABS: INR 2.4 (0.9-1.1)
[2021-02-08 14:12] LABS: COVID-19 RT-PCR UVMMC Result Negative (Negative)
== END 2021-02-07 11:03 | disposition home or self-care (01) ==
PROVIDERS: Emergency Provider Student in an Organized Health Care Education/Training Program; PCP Nurse Practitioner Family
DX: R49.0 Dysphonia (principal); J02.9 Acute pharyngitis, unspecified; D53.9 Nutritional anemia, unspecified; R74.01 Elevation of levels of liver transaminase levels; R74.8 Abnormal levels of other serum enzymes; Z20.822 Contact with and (suspected) exposure to COVID-19; Z03.818 Encounter for observation for suspected exposure to other biological agents ruled out; Z53.29 Procedure and treatment not carried out because of patient's decision for other reasons
CPT/HCPCS: 36415; 70491; 80053; 99285; U0003; U0005; 85025; 85610; 99284; J3490

== ENCOUNTER 2021-04-20 02:58 | Outpatient (CLI) | payer MEDICARE, SELFPAY ==
[2021-04-20 09:34] LABS: Prothrombin Time 29.7 sec (9.3-11.0)
== END 2021-04-20 02:59 | disposition home or self-care (01) ==
LOC: LBO 02:59
PROVIDERS: PCP Nurse Practitioner Family; Visit Provider Family Medicine
DX: I26.99 Other pulmonary embolism without acute cor pulmonale (principal); Z79.01 Long term (current) use of anticoagulants
CPT/HCPCS: 36415; 85610

== ENCOUNTER 2021-06-21 02:07 | Outpatient (CLI) | payer MEDICARE, SELFPAY ==
[2021-06-21 12:13] LABS: HCT 31.7 % (36.0-46.0); HGB 9.2 g/dL (11.2-15.7); MCH 26.4 pg (27.0-33.0); MCV 91.1 fL (80-95); MPV 10.9 fL (8.0-11.0); Platelet Count 208 10^3/uL (130-400); RBC 3.48 10^6/uL (3.93-5.22); RDW 16.5 % (11.7-14.6); RDW-SD 55.2 fL; WBC 6.66 10^3/uL (4.4-10.8)
[2021-06-21 12:29] LABS: Prothrombin Time 23.1 sec (9.3-11.0)
[2021-06-21 12:36] LABS: INR 2.3 (0.9-1.1)
== END 2021-06-21 02:08 | disposition home or self-care (01) ==
LOC: LOS 02:08
PROVIDERS: Dermatology; PCP Nurse Practitioner Family; Visit Provider Nurse Practitioner Family
DX: I26.99 Other pulmonary embolism without acute cor pulmonale (principal)
CPT/HCPCS: 36415; 85027; 85610

== ENCOUNTER → 2021-06-22 12:09 | Outpatient (CLI) | payer MEDICARE, SELFPAY ==
--- NOTE | 2021-06-22 12:00 | DI.RAD_ITS ---
Exam(s) XR FOOT RT COMPLETE EXAM: XR FOOT RT COMPLETE CLINICAL HISTORY: Trauma with pain/swelling,m79.671. TECHNIQUE: 2D digital imaging was performed. COMPARISON: CR LEFT FOOT COMPLETE from 09/04/[address] ABDOMEN PELVIS CTA from 06/30/[address] ABDOMEN PELVIS CTA from 06/30/2019 FINDINGS: There is generalized osteopenia in all the bones of the foot and visualized tibia fibula distal aspec ts. Large inferior calcaneal spur is noted. There is no calcification within the plantar fascia. T here are no obvious fractures evident. There is mild flattening of the head of the 2nd metatarsal. No joint space narrowing. No osteophytes. No diastasis of the Lisfranc joint. No pes planus IMPRESSION: Significant generalized osteopenia. No fractures evident. DATA REPOSITORY: RADIATION DOSE DELIVERED:
== END ==
PROVIDERS: PCP Nurse Practitioner Family; Visit Provider Nurse Practitioner Family
DX: M79.671 Pain in right foot (principal); M85.88 Other specified disorders of bone density and structure, other site
CPT/HCPCS: 73630

== ENCOUNTER 2021-11-24 12:24 | Outpatient (CLI) | payer MEDICARE, SELFPAY ==
--- NOTE | 2021-11-24 09:15 | DI.RAD_ITS ---
Exam(s) XR CHEST 2V PA LATERAL EXAM: XR CHEST 2V PA LATERAL CLINICAL HISTORY: pleuritic chest pain, R07.9, not pui TECHNIQUE: 2D digital imaging was performed of the chest. Two images were obtained. PA and lateral views were obtained. COMPARISON: CR CHEST 2 VIEWS PA,LAT from 04/01/2012 CR CHEST 2 VIEWS PA,LAT from 04/11/2013 CR CHEST 2 VIEWS PA,LAT from 12/11/2017 CR XR CHEST 2V PA LATERAL from 10/05/2018 FINDINGS: MEDIASTINUM: Normal. HEART: Normal. PULMONARY VASCULATURE: Normal. LUNGS: Clear. PLEURAL SPACE: No pleural effusion or pneumothorax. BONE:Within normal limits for the patient's age. OTHER FINDINGS:Normal. IMPRESSION: No acute pulmonary findings. DATA REPOSITORY: RADIATION DOSE DELIVERED:
== END 2021-11-24 12:44 ==
LOC: DI 12:28
PROVIDERS: PCP Nurse Practitioner Family; Visit Provider Emergency Medicine
DX: R07.81 Pleurodynia (principal); R07.89 Other chest pain
CPT/HCPCS: 71046

== ENCOUNTER 2022-01-02 21:29 | Outpatient (REF) | payer MEDICARE, SELFPAY | END 2022-01-02 21:30 | disposition home or self-care (01) | LOC: LBN 21:29 | PROVIDERS: PCP Nurse Practitioner Family; Visit Provider Nurse Practitioner Family | DX: M54.89 Other dorsalgia (principal) | CPT/HCPCS: 87086 ==

== ENCOUNTER 2022-01-04 02:35 | Outpatient (CLI) | payer MEDICARE, SELFPAY ==
[2022-01-04 13:01] LABS: INR 3.8 (0.9-1.1); Prothrombin Time 36.8 sec (9.3-11.0)
[2022-01-04 13:10] LABS: ALT 30 U/L (14-59); AST 26 U/L (15-37); Albumin 3.4 g/dL (3.4-5.0); Alkaline Phosphatase 188 U/L (46-116); Anion Gap 9.1 mmol/L (3-11); BUN 16 mg/dL (7-18); Bilirubin, Total 0.2 mg/dL (0.2-1.0); CO2 24.9 mmol/L (21.0-32.0); CREATININE 1.2 mg/dL (0.55-1.02); Calcium 8.8 mg/dL (8.5-10.1); Chloride 100 mmol/L (98-107); Estimated GFR 45.09 (mL/min/1.73m2); Glucose 129 mg/dL (74-106); Potassium 5.3 mmol/L (3.5-5.1); Sodium 134 mmol/L (136-145); Total Protein 7.6 g/dL (6.4-8.2)
== END 2022-01-04 02:36 | disposition home or self-care (01) ==
LOC: LOS 02:37
PROVIDERS: PCP Nurse Practitioner Family; Visit Provider Nurse Practitioner Family
DX: I26.99 Other pulmonary embolism without acute cor pulmonale; R94.5 Abnormal results of liver function studies; Z79.01 Long term (current) use of anticoagulants
CPT/HCPCS: 36415; 80053; 85610

== ENCOUNTER 2022-01-17 01:57 | Outpatient (CLI) | payer MEDICARE, SELFPAY ==
--- NOTE | 2022-01-17 08:30 | DI.CT_ITS ---
Exam(s) CT RENAL COLIC WO EXAM: CT RENAL COLIC WO CLINICAL HISTORY: ? stones, mid back pain, m54.9. TECHNIQUE: Imaging Protocol: Axial computed tomography images with coronal and sagittal reformatted images were created and reviewed CONTRAST MATERIAL: Intravenous: none Oral: None COMPARISON: CT CT ABDOMEN PELVIS CTA from 06/30/2019 FINDINGS: VISUALIZED LUNG BASES: Scar-like density noted in the right lung base.. ABDOMEN: There is no ascites. LIVER: There are no obvious focal hepatic lesions evident of this noninfused study. GALLBLADDER/BILIARY: Gallbladder surgically absent. CBD is not dilated. PANCREAS: No evidence of pancreatic mass nor dilatation of the pancreatic duct. SPLEEN: There is mild splenomegaly. ADRENALS: There are no significant adrenal masses. KIDNEYS:No cysts evident. No solid renal masses. No calculi nor hydronephrosis.. No calculi nor mass es evident in the urinary bladder. ABDOMINAL AORTA: The abdominal aorta is atherosclerotic and there is mild dilatation of the inferior abdominal aorta again noted at approximately the HARRY takeoff point. Maximum diameter of the abdomina l aorta at this level is 1 point 8 cm. The common iliac arteries are calcified but not enlarged. Incidentally noted is an endovascular stent in the left common iliac vein. LYMPH NODES: There is no retroperitoneal nor paraaortic adenopathy. ABDOMINAL WALL: No evidence of significant anterior abdominal wall nor inguinal hernia. GI: There is no evidence of bowel obstruction, free air, nor abscess. PELVIS: LYMPH NODES: There is no intrapelvic nor inguinal adenopathy. GI: No evidence of appendicitis.No evidence of sigmoid diverticulitis. URINARY BLADDER: No calculi nor obvious masses evident REPRODUCTIVE: Uterus and adnexal regions appear age-appropriate. There is no free fluid in the pelvi s. OSSEOUS: No significant osseous lesions. Chronic disc space narrowing at L4-5 level is noted IMPRESSION: 1. No evidence of renal calculi, hydronephrosis nor hydroureter and there are no radiopaque calculi i n the urinary bladder. 2. An endovascular stent is noted in the left common iliac vein. 3. Atherosclerotic abdominal aorta as described above with mild fusiform dilatation of the inferior a spect. The common iliac arteries are calcified but not enlarged Splenomegaly noted RADIATION DOSE DELIVERED: 699.74mGy.cm Total DLP DATA REPOSITORY: All CT scans at this facility are submitted to the National Radiology Data Registry (NRDR) Dose Index Registry (DIR) with the [employer] (ACR). RADIATION OPTIMIZATION: All CT scans at this facility use at least one of these dose optimization te chniques: automated exposure control; mA and/or kV adjustment per patient size (includes targeted exa ms where dose is matched to clinical indication); or iterative reconstruction.
== END 2022-01-17 02:17 ==
LOC: DI 01:57
PROVIDERS: PCP Nurse Practitioner Family; Visit Provider Nurse Practitioner Family
DX: M54.89 Other dorsalgia (principal); R16.1 Splenomegaly, not elsewhere classified; Z90.49 Acquired absence of other specified parts of digestive tract; I70.0 Atherosclerosis of aorta
CPT/HCPCS: 74176

== ENCOUNTER 2022-03-23 03:24 | Outpatient (CLI) | payer MEDICARE, SELFPAY ==
[2022-03-23 12:39] LABS: INR 2.6 (0.9-1.1); Prothrombin Time 24.6 sec (9.3-11.0)
== END 2022-03-23 03:25 | disposition home or self-care (01) ==
LOC: LOS 03:26
PROVIDERS: PCP Nurse Practitioner Family; Visit Provider Nurse Practitioner Family
DX: I26.99 Other pulmonary embolism without acute cor pulmonale (principal); Z79.01 Long term (current) use of anticoagulants
CPT/HCPCS: 36415; 85610

== ENCOUNTER 2022-07-18 08:18 | Emergency (ER) | payer MEDICARE, SELFPAY ==
[2022-07-18 08:39] VITALS: BP 119/50; PULSE 98; RESP 18; TEMP 37.2; O2SAT 94
--- NOTE | 2022-07-18 08:42 | ED.GENADUL_ITS ---
Discharge Plan Disposition Patient Disposition: Home Condition: Good Discharge Details Clinical Impression: Mild anemia, Cough, Bronchitis Primary Care Provider: Renzo Castano ED Provider: Scout Freeman Home Meds and New Rx's Prescriptions: New doxycycline hyclate 100 mg tablet 100 mg PO BID Qty: 20 0RF Iron Chews 15 mg tablet,chewable 15 mg PO DAILY Qty: 30 0RF famotidine 40 mg tablet 40 mg PO DAILY Qty: 60 0RF No Action (DME) blood-glucose meter [OneTouch Ultra2 Meter] Kit See Rx Instructions .ROUTE .MEDSUPPLY Qty: 1 0RF Rx Instructions: Use daily to check blood sugar lorazepam [Ativan] 1 mg tablet 1 mg PO ONCE PRN (Reason: anxiety) Qty: 1 0RF Rx Instructions: Take one tablet one hour prior to MRI. Elbow Sleeve 1 DAILY Qty: 1 0RF Rx Instructions: Dx: Left ulnar neuropathy Probiotic 1 EACH capsule 1 ea PO DAILY triamcinolone acetonide 60 ML lotion 1 applic Topical HS Qty: 60 Rx Instructions: Massage into scalp. (DME) lancets [OneTouch UltraSoft Lancets] Misc 1 ea Miscellaneous BID Qty: 100 4RF Rx Instructions: Dx E11.9 amitriptyline 25 mg tablet 25 mg PO DAILY Qty: 90 4RF gabapentin 600 mg tablet 600 mg PO TID Qty: 270 2RF magnesium oxide 400 mg (241.3 mg magnesium) tablet 1,200 mg PO TID Qty: 270 4RF omeprazole 40 mg capsule,delayed release(DR/EC) 40 mg PO HS Qty: 90 3RF (DME) blood sugar diagnostic Strip 1 ea Miscellaneous BID Qty: 200 5RF Rx Instructions: Twice a day testing (DME) lancets [OneTouch Delica Lancets] 33 gauge misc See Rx Instructions .ROUTE DAILY Qty: 100 4RF Rx Instructions: One each daily dapsone 25 mg tablet 50 mg PO BID Qty: 240 3RF metformin 1,000 mg tablet 1,000 mg PO BID Qty: 180 4RF warfarin 5 mg tablet See Rx Instructions PO .COMPLEX Qty: 100 3RF Protocol: Dose Management Condition: Sunday Dose/Route: 5 mg Instruction: 1 x 5 mg tablet Condition: Sunday Dose/Route: 2.5 mg Instruction: 0.5 x 5 mg tablets Condition: Sunday Dose/Route: 5 mg Instruction: 1 x 5 mg tablet Condition: Sunday Dose/Route: 2.5 mg Instruction: 0.5 x 5 mg tablets Condition: Dose/Route: 5 mg Instruction: 1 x 5 mg tablet Condition: Sunday Dose/Route: 2.5 mg Instruction: 0.5 x 5 mg tablets Condition: Sunday Dose/Route: 5 mg Instruction: 1 x 5 mg tablet Protocol Text: Adjustment Start Date: 05/04/22 INR Value: 2.2 INR Date: 05/04/22 Recheck Date: 06/03/22 Dose Instruction: 1-2 tab daily as directed by [facility] PO ; brand name only Rx Instructions: 1-2 tab daily as directed by [facility] PO ; brand name only baclofen 10 mg tablet 20 mg PO HS Qty: 90 1RF lorazepam [Ativan] 0.5 mg tablet 0.5 mg PO DAILY PRN (Reason: nausea and vomiting) Qty: 14 0RF hydrocodone-acetaminophen 10-325 mg tablet 1 tab PO Q6H MDD 4 tabs PRN (Reason: chronic pain) Qty: 112 0RF Discharge Instructions Instructions: Anemia (ED), Acute Cough (ED) Additional Instructions: At this time your work-up is reassuring. You do have a slight drop in your hemoglobin level which is likely from a mild chronic small bleed from po tentially your stomach or your intestines. Please take the Protonix as directed as well as your regular omeprazole to help reduce any stomach irritation. Please follow-up closely with your primary care provider for reassessment. Please take the iron supplements that have been prescribed to help as well. You will need further outpatient blood testing to determine the potential or exact cause of your slightly low blood levels. Additionally the chest x-ray shows no evidence of significant pneumonia, however I do suspect that your symptoms may be related to a mild bronchitis. Please take the antibiotic as directed. Please follow-up closely with your primary care provider for reassessment of this after your antibiotics have finished. A small compression fracture was noted in your spine on this x-ray, which does not need intervention, but may cause some pain or achiness in your back. If you notice any worsening of your symptoms, or any new symptoms such as vomiting, diarrhea, fever, chills, shortness of breath, chest pain, numbness, weakness, or fainting , please return immediately to the emergency department for reevaluation. Please follow up with your primary care provider as soon as possible for reassessment and reevaluation. As always, it was a pleasure participating in your medical care today. Referrals: Renzo Castano INSTRUCTIONAL SERVICES SPECIALIST [Primary Care Provider] - Medical Decision Making This is a pleasant 66-year-old female with a past medical history of GERD, hypercoagulability on Coumadin, type 2 diabetes, cholecystectomy,?pulmonary embolism, diabetes, restless leg syndrome, previous liver lesion, who presents today for evaluation of weakness/dry throat, cough, mild shortness of breath. Patient states that for the last 4 to 5 weeks she has been having the symptoms. They have been persistent. She had a COVID test which was negative. She denies vomiting or diarrhea. She denies any chest pain or exertional chest pain but does admit to exertional shortness of breath. She does state that she thinks she might be dehydrated, but does not have a clear reason why. No other complaints at this time. No other modifying factors. Exam demonstrates well-appearing female, vital signs stable, oxygenation normal. Lung sounds demonstrate mild crackle in the right lower lung field, no abdom inal pain or tenderness. No pitting edema in the lower extremities. Tongue does not appear dry. Does appear slightly enlarged. No other significant abnormalities. Differential is broad but includes anemia electrolyte abnormality most likely cardiac etiology. Differential also includes pneumonia. We will evaluate for these concerning etiologies. Monitor closely and reassess. Of note the patient states that she has not missed any of her Coumadin doses, however she is also not had recent INR check in the last month or so. 10:27 AM X-ray shows no evidence of significant pneumonia, and concerned that symptoms may be consistent with mild bronchitis. We will start the patient on doxycycline. Additionally x-ray does show evidence of a T9 compression fracture deformity, however no evidence of symptoms at this time, no clinical evidence requiring immediate surgical intervention. Recommend close outpatient follow- up. Patient does have a drop in her hemoglobin, hemoglobin is 8.8, but and does not need transfusion at this time. Suspect it is a chronic small bleed or secondary to her iron deficiency anemia. Will recommend close follow-up with her primary care provider for reassessment and further testing. We will give iron supplementation for home and start the patient on famotidine as well in addition to her current omeprazole. Patient's oxygen is borderline. I discussed admission versus discharge, at this time the patient does not want to be admitted and would like to go home. Discussed the risk and benefits of this and the patient understands. She does not show any signs of significant respiratory distress though, no need for oxygen supplementation. I have extensively reviewed the treatment plan and discharge instructions with the patient and their family. I have addressed all patient concerns at this time. The patient and family was made aware of what symptoms to monitor for that would warrant a return to the emergency department. Discussed the plan with the patient and family, they demonstrate verbal understanding and agreement with our assessment and plan at this time. The documentation in this chart was dictated using [employer] dictation software. Please excuse any dictation errors. FINDINGS: MEDIASTINUM: Normal. HEART: Normal. PULMONARY VASCULATURE: Normal. LUNGS: Chronic interstitial changes are seen in the lungs. No focal consolida ting infiltrates. PLEURAL SPACE: No pleural effusion or pneumothorax. BONE:Within normal limits for the patient's age. There is now a marked compression fracture deformity of T9. This was not present on the prior examination. There is loss of over 50 percent of the vertebral body height anteriorly with exaggeration of the kyphosis noted. OTHER FINDINGS:Normal. IMPRESSION: 1. No acute pulmonary findings. 2. T9 compression fracture deformity. This is indeterminate but has occurred since the prior examination of 11/24/2021. Sign Out No HPI General Date/Time Provider Initiated Documentation: 07/18/22 08:40 . HPI Narrative: This is a pleasant 66-year-old female with a past medical history of GERD, hypercoagulability on Coumadin, type 2 diabetes, cholecystectomy,?pulmonary embolism, diabetes, restless leg syndrome, previous liver lesion, who presents today for evaluation of weakness/dry throat, cough, mild shortness of breath. Patient states that for the last 4 to 5 weeks she has been having the symptoms. They have been persistent. She had a COVID test which was negative. She denies vomiting or diarrhea. She denies any chest pain or exertional chest pain but does admit to exertional shortness of breath. She does state that she thinks she might be dehydrated, but does not have a clear reason why. No other complaints at this time. No other modifying factors. Related Data Home Medications Medication Instructions Recorded Confirmed Lactobacillus acidophilus 10 1 ea PO DAILY 07/04/16 07/18/22 billion cell capsule (Probiotic) triamcinolone acetonide 0.1 % 1 applic topical HS #60 mL 12/04/17 07/18/22 lotion blood-glucose meter (OneTouch #1 ea 04/23/20 07/05/22 Ultra2 Meter kit) lancets (OneTouch UltraSoft #100 ea 06/27/20 07/05/22 Lancets) amitriptyline 25 mg tablet 25 mg PO DAILY #90 tab-caps 10/04/20 07/18/22 gabapentin 600 mg tablet 600 mg PO TID #270 tabs 10/04/20 07/18/22 magnesium oxide 400 mg (241.3 mg 1,200 mg PO TID #270 tabs 10/04/20 07/18/22 magnesium) tablet omeprazole 40 mg capsule,delayed 40 mg PO HS #90 caps 08/31/21 07/18/22 release blood sugar diagnostic #200 strips 09/23/21 07/05/22 lancets 33 gauge (OneTouch Delica #100 ea 09/23/21 07/05/22 Lancets) dapsone 25 mg tablet 50 mg PO BID #240 tab-caps 12/28/21 07/18/22 metformin 1,000 mg tablet 1,000 mg PO BID #180 tab-caps 12/28/21 07/18/22 lorazepam 1 mg tablet (Ativan) 1 mg PO ONCE PRN anxiety #1 tab 12/29/21 07/18/22 warfarin 5 mg tablet See Rx Instructions PO .COMPLEX 05/15/22 07/18/22 #100 tabs baclofen 10 mg tablet 20 mg PO HS #90 tab-caps 06/19/22 07/18/22 lorazepam 0.5 mg tablet (Ativan) 0.5 mg PO DAILY PRN nausea and 06/23/22 07/18/22 vomiting #14 tabs hydrocodone 10 mg-acetaminophen 1 tab PO Q6H PRN chronic pain #112 07/07/22 07/18/22 325 mg tablet tabs doxycycline hyclate 100 mg tablet 100 mg PO BID #20 tabs 07/18/22 famotidine 40 mg tablet 40 mg PO DAILY #60 tabs 07/18/22 iron, carbonyl 15 mg chewable 15 mg PO DAILY #30 tabs 07/18/22 tablet (Iron Chews) Previous Rx's Medication Instructions Recorded blood-glucose meter (Genesis Operating SystemTouch #1 ea 04/23/20 Ultra2 Meter kit) lancets (Genesis Operating SystemTouch UltraSoft #100 ea 06/27/20 Lancets) amitriptyline 25 mg tablet 25 mg PO DAILY #90 tab-caps 10/04/20 gabapentin 600 mg tablet 600 mg PO TID #270 tabs 10/04/20 magnesium oxide 400 mg (241.3 mg 1,200 mg PO TID #270 tabs 10/04/20 magnesium) tablet omeprazole 40 mg capsule,delayed 40 mg PO HS #90 caps 08/31/21 release blood sugar diagnostic #200 strips 09/23/21 lancets 33 gauge (Genesis Operating SystemTouch Delica #100 ea 09/23/21 Lancets) dapsone 25 mg tablet 50 mg PO BID #240 tab-caps 12/28/21 metformin 1,000 mg tablet 1,000 mg PO BID #180 tab-caps 12/28/21 lorazepam 1 mg tablet (Ativan) 1 mg PO ONCE PRN anxiety #1 tab 12/29/21 warfarin 5 mg tablet See Rx Instructions PO .COMPLEX 05/15/22 #100 tabs baclofen 10 mg tablet 20 mg PO HS #90 tab-caps 06/19/22 lorazepam 0.5 mg tablet (Ativan) 0.5 mg PO DAILY PRN nausea and 06/23/22 vomiting #14 tabs hydrocodone 10 mg-acetaminophen 1 tab PO Q6H PRN chronic pain #112 07/07/22 325 mg tablet tabs doxycycline hyclate 100 mg tablet 100 mg PO BID #20 tabs 07/18/22 famotidine 40 mg tablet 40 mg PO DAILY #60 tabs 07/18/22 iron, carbonyl 15 mg chewable 15 mg PO DAILY #30 tabs 07/18/22 tablet (Iron Chews) Allergies Allergy/AdvReac Type Severity Reaction Status Date / Time rizatriptan benzoate Allergy Severe tongue Verified 07/18/22 08:45 [From Maxalt] swelling, diff.swallowing per pt azithromycin Allergy Intermediate SOB-pt Verified 07/18/22 08:45 reported sulfamethoxazole Allergy Intermediate Verified 07/18/22 08:45 trimethoprim [From Bactrim] Allergy Intermediate Verified 07/18/22 08:45 adhesive Allergy RASH Verified 07/18/22 08:45 wheat Allergy SKIN RASH Verified 07/18/22 08:45 sertraline AdvReac Intermediate sweating Verified 07/18/22 08:45 tramadol AdvReac Intermediate Nausea Verified 07/18/22 08:45 venlafaxine AdvReac Intermediate sweating,fa Verified 07/18/22 08:45 tigue,malai se amoxicillin AdvReac GI UPSET Verified 07/18/22 08:45 ondansetron [From Zofran] AdvReac can taste Verified 07/18/22 08:45 pill for days...per pt promethazine AdvReac jitters Verified 07/18/22 08:45 General JOSE JUAN: 3 Review of Systems All systems reviewed & are unremarkable except as noted in HPI and below PFSH All Active Problems (Updated 07/18/22 @ 10:22 by Scout Freeman DO) Mild anemia (Acute) Cough (Acute) Bronchitis (Acute) Left foot pain (Acute) Edema of left foot (Acute) Thoracic back pain (Acute) Mid back pain (Acute) Chest pain (Acute) Right foot pain (Acute) Gout (Chronic) Encounter for immunization (Acute) Hoarseness of voice (Acute) Sore throat (Acute) Chronic anemia (Acute) Abnormal LFTs (liver function tests) (Acute) Leg pain (Acute) Elevated blood pressure reading (Acute) Chronic anticoagulation (Acute) Fatigue (Acute) Epigastric pain (Acute) Anticoagulated on warfarin (Chronic) PE; INR goal 2-3 Bursitis of right shoulder (Chronic 07/04/16) Carpal tunnel syndrome of right wrist (Chronic 08/03/15) Celiac disease (Chronic 07/19/05) Chronic pain syndrome (Chronic 05/23/13) Depressive disorder (Chronic) Dermatitis herpetiformis (Chronic 12/31/14) Diabetes (Chronic 12/01/13) Diabetic peripheral neuropathy (Chronic 08/03/15) OPTICAL EXPRESSIONS; 08/31/15; LEFT EYE Gastroesophageal reflux disease (Chronic) History of pulmonary embolus (PE) (Chronic 05/15/13) Hyperlipidemia (Chronic) Irritable bowel syndrome with diarrhea (Chronic 06/26/17) Low back pain (Chronic) Migraine (Chronic) Nocturnal leg cramps (Chronic 07/04/16) Obesity (Chronic) Peripheral vascular disease (Chronic 07/28/14) Smoker (Chronic) Spinal stenosis, lumbar region with neurogenic claudication (Chronic 08/17/15) 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) Venous insufficiency of both lower extremities (Chronic 08/03/15) Chronic pain in left foot (Chronic) Protein C deficiency (Chronic) Chronic cough (Chronic) Dyspnea on effort (Acute) Microcytic anemia (Acute) Pulmonary embolism (Acute) Plantar fasciitis (Acute) Foot pain (Acute) Elevation of level of transaminase and lactic acid dehydrogenase (LDH) (Acute) History of dysmenorrhea (Acute 07/19/95) Corns and callus (Acute) Carpal tunnel syndrome (Acute) Abnormal liver function (Acute) Corns (Chronic) Zoster (Acute) Medical History Diabetes mellitus DVT (deep venous thrombosis) GERD (gastroesophageal reflux disease) Nausea & vomiting Pulmonary embolism Surgical History section History of carpal tunnel surgery of left wrist History of section Hx of cholecystectomy Family History Mother Personal history of malignant neoplasm BONE,THYROID,BACK,LIVER,BLADDER,BREAST Father Asthma Sister No problems noted. Brother No problems noted. Social History Smoking/Tobacco Use Status: Current every day Tobacco Type: cigarettes Smoking risk assessment performed?: Yes Alcohol Intake: never Drug use: Never Substance use type: does not use Household members: spouse What type of physical activity do you participate in: none Do you feel safe at home: Yes Do you feel safe in your relationship?: Yes Exam Narrative Exam Narrative: 1.Const: Well-nourished, Well-developed, appearing stated age 2.Eyes: PERRL, no conjunctival injection, and symmetrical lids. 3.ENT: Atraumatic external nose and ears. Moist MM. Slightly enlarged tongue. Neck: Symmetric, trachea midline, No thyromegaly. 4.CVS: +S1/S2, No murmurs or gallops. Peripheral pulses 2+ and equal in all extremities. Brisk capillary refill in all extremities. 5.RESP: Unlabored respiratory effort. Clear to auscultation bilaterally except for mild crackles in the right lower lung field. No wheezes rales or rhonchi 6.GI: Soft, Nontender/Nondistended, No hepatosplenomegaly. No guarding or rebound. 7.MSK: Normocephalic/Atraumatic, Extremities w/o deformity or ttp No cyanosis or clubbing, Normal movement of all extremities, no pitting edema. 8.Skin: Warm, Dry. No rashes or lesions. 9.Neuro: director loss prevention II-XII grossly intact. Sensation grossly intact, no focal neurologic deficits. 10.Psych: (AAO) x3. Appropriate mood and affect
--- NOTE | 2022-07-18 08:45 | RT.EKG_ITS ---
APPROVED REPORT Exam: Resting ECG Reason for Exam: chest pain Patient Location: E HR:87 bpm ECG Measurements Heart Rate 87 AXIS AZ 148 P 48 QRSd 72 QRS -4 QT 364 T 56 QTc 439 Conclusion Sinus rhythm...normal P axis, V-rate 60- 99 Physician: no stemi, minimal elevation in V2, unchanged from prior ekg on 05/29/19
[2022-07-18] MEDS: Normal Saline 500 ML IV (09:03)
[2022-07-18 09:06] LABS: Abs Immature Grans 0.03 10^3/uL (0.0-0.06); Absolute Basophil Count 0.02 10^3/uL (0.0-0.2); Absolute Eosinophil Count 0.03 10^3/uL (0.0-0.7); Absolute Monocyte Count 0.43 10^3/uL (0.1-0.8); Absolute Neutrophil Count 3.53 10^3/uL (1.2-6.7); Basophils % 0.4; Eosinophils % 0.6; HCT 29.4 % (36.0-46.0); HGB 8.8 g/dL (11.2-15.7); Immature Grans % 0.6; Lymphocytes % 21.4; MCHC 29.9 % (32.0-36.0); MCV 87 fL (80-95); MPV 9.3 fL (8.0-11.0); Monocytes % 8.4; Neutrophils % 68.6; Platelet Count 200 10^3/uL (130-400); RBC 3.39 10^6/uL (3.93-5.22); RDW 18.4 % (11.7-14.6); RDW-SD 58.2 fL; WBC 5.14 10^3/uL (4.4-10.8)
[2022-07-18 09:23] LABS: INR 1.9 (0.9-1.1); PTT Activated 31.4 sec (21.0-27.5); Prothrombin Time 18.1 sec (9.3-11.0)
--- NOTE | 2022-07-18 09:24 | DI.RAD_ITS ---
Exam(s) XR CHEST 2V PA LATERAL EXAM: XR CHEST 2V PA LATERAL CLINICAL HISTORY: cough, r/o pneumonia TECHNIQUE: 2D digital imaging was performed of the chest. Two images were obtained. PA and lateral views were obtained. COMPARISON: CR XR CHEST 2V PA LATERAL from 11/24/[address] RENAL COLIC WO from 01/17/2022 FINDINGS: MEDIASTINUM: Normal. HEART: Normal. PULMONARY VASCULATURE: Normal. LUNGS: Chronic interstitial changes are seen in the lungs. No focal consolidating infiltrates. PLEURAL SPACE: No pleural effusion or pneumothorax. BONE:Within normal limits for the patient's age. There is now a marked compression fracture deformit y of T9. This was not present on the prior examination. There is loss of over 50 percent of the oumar tebral body height anteriorly with exaggeration of the kyphosis noted. OTHER FINDINGS:Normal. IMPRESSION: 1. No acute pulmonary findings. 2. T9 compression fracture deformity. This is indeterminate but has occurred since the prior examina tion of 11/24/2021. DATA REPOSITORY: RADIATION DOSE DELIVERED:
[2022-07-18 09:31] LABS: ALT 34 U/L (14-59); AST 34 U/L (15-37); Albumin 3.4 g/dL (3.4-5.0); Alkaline Phosphatase 153 U/L (46-116); Anion Gap 5.9 mmol/L (3-11); BUN 11 mg/dL (7-18); Bilirubin, Total 0.4 mg/dL (0.2-1.0); CO2 29.1 mmol/L (21.0-32.0); CREATININE 1.1 mg/dL (0.55-1.02); Chloride 98 mmol/L (98-107); Estimated GFR 55.76 (mL/min/1.73m2); Glucose 96 mg/dL (74-106); NT-proBNP 314 pg/mL (<300); Potassium 4.1 mmol/L (3.5-5.1); Sodium 133 mmol/L (136-145); TSH (W/Ref FT4) 2.43 uIU/mL (0.36-3.74); Total Protein 8.2 g/dL (6.4-8.2); Troponin I < 50 ng/L (<or=60)
[2022-07-18 09:33] LABS: Diff Comment Diff Reviewed; Hypochromasia 2+
[2022-07-18 10:21] VITALS: BP 108/69; PULSE 84; TEMP 36.7; O2SAT 91
[2022-07-18 10:49] VITALS: BP 108/69; PULSE 84; RESP 16; O2SAT 91
[2022-07-18] MEDS: Albuterol HFA 8 GM 60 PUFF INH IH (10:52)
== END 2022-07-18 11:13 | disposition home or self-care (01) ==
PROVIDERS: Emergency Provider Student in an Organized Health Care Education/Training Program; PCP Nurse Practitioner Family
DX: J40 Bronchitis, not specified as acute or chronic (principal); D64.9 Anemia, unspecified; E11.9 Type 2 diabetes mellitus without complications; Z86.711 Personal history of pulmonary embolism; Z79.84 Long term (current) use of oral hypoglycemic drugs; Z79.01 Long term (current) use of anticoagulants; R06.02 Shortness of breath
CPT/HCPCS: 36415; 80053; 93005; 96360; 99284; 71046; 83880; 84443; 84484; 85025; 85610; 85730; 93010; 99285

== ENCOUNTER 2022-10-26 03:01 | Outpatient (CLI) | payer OTHER, SELFPAY ==
[2022-10-26 12:56] LABS: Abs Immature Grans 0.02 10^3/uL (0.0-0.06); Absolute Basophil Count 0.02 10^3/uL (0.0-0.2); Absolute Eosinophil Count 0.09 10^3/uL (0.0-0.7); Absolute Lymphocyte Count 1.36 10^3/uL (1.2-3.4); Absolute Monocyte Count 0.34 10^3/uL (0.1-0.8); Absolute Neutrophil Count 2.79 10^3/uL (1.2-6.7); Basophils % 0.4; Eosinophils % 1.9; HCT 31.4 % (36.0-46.0); HGB 9.3 g/dL (11.2-15.7); Immature Grans % 0.4; Lymphocytes % 29.4; MCH 26.9 pg (27.0-33.0); MCHC 29.6 % (32.0-36.0); MCV 91 fL (80-95); MPV 10.7 fL (8.0-11.0); Monocytes % 7.4; Neutrophils % 60.5; Platelet Count 182 10^3/uL (130-400); RBC 3.46 10^6/uL (3.93-5.22); RDW-SD 59.9 fL; WBC 4.62 10^3/uL (4.4-10.8)
[2022-10-26 13:06] LABS: Iron 35 ug/dL (50-170); Total Iron Binding Capacity 475 ug/dL (250-450)
[2022-10-26 13:20] LABS: Ferritin 12 ng/mL (8-252)
[2022-10-26 19:15] LABS: INR 1.8 (0.9-1.1); Prothrombin Time 17.8 sec (9.3-11.0)
[2022-10-27 09:51] LABS: Transferrin 343 mg/dL (201-352)
== END 2022-10-26 03:02 | disposition home or self-care (01) ==
LOC: LOS 03:01
PROVIDERS: PCP Nurse Practitioner Family; Visit Provider Nurse Practitioner Family
DX: D64.9 Anemia, unspecified (principal); Z79.01 Long term (current) use of anticoagulants; I26.99 Other pulmonary embolism without acute cor pulmonale
CPT/HCPCS: 36415; 82728; 83540; 83550; 84466; 85025; 85610

== ENCOUNTER 2022-11-06 04:06 | Outpatient (CLI) | payer OTHER, SELFPAY ==
[2022-11-06 12:39] LABS: INR 2.6 (0.9-1.1); Prothrombin Time 26.4 sec (9.3-11.0)
== END 2022-11-06 04:07 | disposition home or self-care (01) ==
LOC: LOS 04:06
PROVIDERS: PCP Nurse Practitioner Family; Visit Provider Nurse Practitioner Family
DX: I26.99 Other pulmonary embolism without acute cor pulmonale (principal); Z79.01 Long term (current) use of anticoagulants
CPT/HCPCS: 36415; 85610

== ENCOUNTER 2023-02-08 11:24 | Outpatient (REF) | payer OTHER, SELFPAY | END 2023-02-08 11:25 | disposition home or self-care (01) | LOC: LBN 11:24 | PROVIDERS: PCP Nurse Practitioner Family; Visit Provider Nurse Practitioner Family | DX: R30.0 Dysuria (principal) | CPT/HCPCS: 87086 ==

== ENCOUNTER 2023-02-12 02:39 | Outpatient (CLI) | payer OTHER, SELFPAY ==
--- NOTE | 2023-02-12 08:15 | DI.CT_ITS ---
Exam(s) CT LOWER EXTREMITY LT WO EXAM: CT LOWER EXTREMITY LT WO CLINICAL HISTORY: left foot pain,[id number]. TECHNIQUE: Imaging Protocol: Axial computed tomography images with coronal and sagittal reformatted images were created and reviewed. COMPARISON: CR LEFT FOOT COMPLETE from 03/13/2018 CT LEFT LOWER EXTREM WO CONTRAST from 04/19/2018 FINDINGS: Bones: The osseous structures and articular surfaces are intact. Bony alignment is satisfactory. T he bones are osteopenic. The joint spaces are well maintained. Minimal degenerative changes are pre sent. There is a plantar calcaneal spur. Soft Tissues: Dystrophic calcification is again seen in the soft tissues of the lower leg. There ana maria ears to be mild diffuse muscular atrophy. No focal fluid collection or foreign body is identified. IMPRESSION: 1. There does not appear to be significant change in appearance of the left foot compared to the prio r examination. 2. There again seen findings of osteoporosis, mild degenerative change in soft tissue calcification. RADIATION DOSE DELIVERED: 259.76mGy.cm Total DLP 259.76mGy.cm Total DLP DATA REPOSITORY: All CT scans at this facility are submitted to the National Radiology Data Registry (NRDR) Dose Index Registry (DIR) with the [employer] ([employer]). RADIATION OPTIMIZATION: All CT scans at this facility use at least one of these dose optimization te chniques: automated exposure control; mA and/or kV adjustment per patient size (includes targeted exa ms where dose is matched to clinical indication); or iterative reconstruction.
== END 2023-02-12 02:59 ==
LOC: DI 02:39
PROVIDERS: PCP Nurse Practitioner Family; Visit Provider Family Medicine
DX: G89.29 Other chronic pain (principal); M79.672 Pain in left foot
CPT/HCPCS: 73700

== ENCOUNTER 2023-02-14 02:42 | Outpatient (CLI) | payer OTHER, SELFPAY ==
[2023-02-14 08:28] LABS: HCT 32.1 % (36.0-46.0); HGB 9.8 g/dL (11.2-15.7); MCH 29.5 pg (27.0-33.0); MCHC 30.5 % (32.0-36.0); MCV 97 fL (80-95); Platelet Count 143 10^3/uL (130-400); RBC 3.32 10^6/uL (3.93-5.22); RDW-SD 52.9 fL; WBC 4.44 10^3/uL (4.4-10.8)
[2023-02-14 09:44] LABS: ALT 35 U/L (14-59); AST 34 U/L (15-37); Albumin 3.4 g/dL (3.4-5.0); Alkaline Phosphatase 186 U/L (46-116); BUN 10 mg/dL (7-18); Bilirubin, Total 0.4 mg/dL (0.2-1.0); Chloride 100 mmol/L (98-107); Estimated GFR 62.13 (mL/min/1.73m2); Glucose 121 mg/dL (74-106); Potassium 4.7 mmol/L (3.5-5.1); Sodium 137 mmol/L (136-145); TSH (W/Ref FT4) 3.42 uIU/mL (0.36-3.74); Total Protein 8.3 g/dL (6.4-8.2)
[2023-02-14 12:05] LABS: Vitamin D 25 Total 11.8 ng/mL (30-100)
[2023-02-14 18:49] LABS: Parathyroid Hormone,Intact 65 pg/mL (19-88)
== END 2023-02-14 02:43 | disposition home or self-care (01) ==
LOC: LBO 02:42
PROVIDERS: PCP Nurse Practitioner Family; Visit Provider Family Medicine
DX: M80.87 Other osteoporosis with current pathological fracture, ankle and foot (principal); N18.9 Chronic kidney disease, unspecified; R52 Pain, unspecified
CPT/HCPCS: 36415; 80053; 82306; 85027; 83970; 84100; 84443

== ENCOUNTER 2023-02-22 13:16 | Outpatient (REF) | payer OTHER, SELFPAY ==
[2023-02-23 08:41] LABS: Timed Urine Volume 1200 mL
[2023-02-23 08:44] LABS: Calcium Urine <1.0 mg/dL (See Note); Calcium Urine 24 hr <12 mg/24hr (100-300); Timed Urine Volume 1200 mL
== END 2023-02-22 13:17 | disposition home or self-care (01) ==
LOC: LBN 13:16
PROVIDERS: PCP Nurse Practitioner Family; Visit Provider Family Medicine
DX: M81.0 Age-related osteoporosis without current pathological fracture (principal); L94.2 Calcinosis cutis
CPT/HCPCS: 83735; 81050; 82340

== ENCOUNTER 2023-03-31 08:48 | Emergency (ER) | payer OTHER, MEDICAID, SELFPAY ==
[2023-03-31 08:53] VITALS: BP 151/73; PULSE 101; RESP 18; TEMP 36.9; O2SAT 93
--- NOTE | 2023-03-31 09:08 | ED.GENADUL_ITS ---
Discharge Plan Disposition Patient Disposition: Home Discharge Details Clinical Impression: Dehydration Primary Care Provider: Renzo Castano ED Provider: Sridhar Biggs Home Meds and New Rx's Prescriptions: No Action prednisone 20 mg tablet 40 mg PO DAILY Qty: 10 0RF ferrous gluconate 236 mg (27 mg iron) tablet 236 mg PO .COMPLEX Qty: 36 3RF Rx Instructions: 236 mg orally Sun, Sun, Sun; Elbow Sleeve 1 DAILY Qty: 1 0RF Rx Instructions: Dx: Left ulnar neuropathy amitriptyline 25 mg tablet 25 mg PO DAILY Qty: 90 4RF gabapentin 600 mg tablet 600 mg PO TID Qty: 270 2RF magnesium oxide 400 mg (241.3 mg magnesium) tablet 1,200 mg PO TID Qty: 270 4RF warfarin 5 mg tablet See Rx Instructions PO .COMPLEX Qty: 100 3RF Protocol: Dose Management Condition: Sunday Dose/Route: 5 mg Instruction: 1 x 5 mg tablet Condition: Sunday Dose/Route: 2.5 mg Instruction: 0.5 x 5 mg tablets Condition: Sunday Dose/Route: 5 mg Instruction: 1 x 5 mg tablet Condition: Sunday Dose/Route: 5 mg Instruction: 1 x 5 mg tablet Condition: Dose/Route: 5 mg Instruction: 1 x 5 mg tablet Condition: Sunday Dose/Route: 2.5 mg Instruction: 0.5 x 5 mg tablets Condition: Sunday Dose/Route: 5 mg Instruction: 1 x 5 mg tablet Protocol Text: Adjustment Start Date: Sunday03/26/23 INR Value: 2.7 INR Date: 03/26/23 Recheck Date: 04/25/23 Dose Instruction: 1-2 tab daily as directed by [facility] PO ; brand name only Rx Instructions: 1-2 tab daily as directed by [facility] PO ; brand name only omeprazole 40 mg capsule,delayed release(DR/EC) 40 mg PO HS Qty: 90 3RF dapsone 25 mg tablet 50 mg PO BID Qty: 240 3RF baclofen 10 mg tablet 20 mg PO HS Qty: 90 3RF (DME) blood sugar diagnostic Strip 1 ea Miscellaneous BID Qty: 200 5RF Rx Instructions: Twice a day testing (DME) lancets [OneTouch Delica Lancets] 33 gauge misc See Rx Instructions .ROUTE DAILY Qty: 100 4RF Rx Instructions: One each daily nystatin 100,000 unit/mL suspension 1 ml PO DAILY Qty: 60 0RF Rx Instructions: swish and swallow hydrocodone-acetaminophen 10-325 mg tablet 1 tab PO Q6H MDD 4 tabs PRN (Reason: chronic pain) Qty: 112 0RF metformin 1,000 mg tablet 1,000 mg PO BID Qty: 180 4RF Discharge Instructions Instructions: Dehydration (ED) Additional Instructions: Please continue taking all your regular medications. Strongly encourage you to drink some other fluids and just coffee. Please ensure that your urine is not too dark that we will know that you are not dehydrated. Rest of the remainder of the weekend and follow-up with your primary care doctor next week as needed Medical Decision Making 67-year-old who present to the emergency room for concern of dehydration. Lab work within normal limits. Therapeutic INR. Patient was hydrated with 1 L of IV fluids stated she felt better. Of asked her to be more careful about her p.o. ingestion and her hydration level HPI General Date/Time Provider Initiated Documentation: 03/31/23 09:08 . HPI Narrative: 67-year-old lady presents to the emergency room for evaluation of what she says is dehydration. She is very vague in her symptomatology. She refers to her symptoms at this. Review of system reveals that she has had no headaches, she is unsure if she has felt dizzy or lightheaded for the past few days, no chest pain, no shortness of breath, no back pain, no abdominal pain, no diarrhea, no urinary symptoms. She states that she believes that she has not drink enough water because she has been drinking ice coffee that her daughter brings her every morning. No alcohol use. She is a diabetic with adequate control of her glycemia's, 120 this morning, however she did not take her metformin because she felt sick this morning. By 6 she means she felt mildly nauseous. Related Data Home Medications Medication Instructions Recorded Confirmed amitriptyline 25 mg tablet 25 mg PO DAILY #90 tab-caps 10/04/20 03/26/23 gabapentin 600 mg tablet 600 mg PO TID #270 tabs 10/04/20 03/26/23 magnesium oxide 400 mg (241.3 mg 1,200 mg PO TID #270 tabs 10/04/20 03/26/23 magnesium) tablet warfarin 5 mg tablet See Rx Instructions PO .COMPLEX 05/15/22 03/26/23 #100 tabs omeprazole 40 mg capsule,delayed 40 mg PO HS #90 caps 08/07/22 03/26/23 release ferrous gluconate 236 mg (27 mg 236 mg PO .COMPLEX #36 tabs 08/09/22 03/26/23 iron) tablet dapsone 25 mg tablet 50 mg PO BID #240 tab-caps 08/31/22 03/26/23 baclofen 10 mg tablet 20 mg PO HS #90 tab-caps 09/13/22 03/26/23 blood sugar diagnostic #200 strips 12/18/22 03/26/23 lancets 33 gauge (OneTouch Delica #100 ea 12/18/22 03/26/23 Lancets) nystatin 100,000 unit/mL oral 1 ml PO DAILY #60 mL 02/16/23 03/26/23 suspension hydrocodone 10 mg-acetaminophen 1 tab PO Q6H PRN chronic pain #112 03/08/23 03/26/23 325 mg tablet tabs metformin 1,000 mg tablet 1,000 mg PO BID #180 tab-caps 03/19/23 03/26/23 prednisone 20 mg tablet 40 mg PO DAILY #10 tabs 03/21/23 03/26/23 Previous Rx's Medication Instructions Recorded amitriptyline 25 mg tablet 25 mg PO DAILY #90 tab-caps 10/04/20 gabapentin 600 mg tablet 600 mg PO TID #270 tabs 10/04/20 magnesium oxide 400 mg (241.3 mg 1,200 mg PO TID #270 tabs 10/04/20 magnesium) tablet warfarin 5 mg tablet See Rx Instructions PO .COMPLEX 05/15/22 #100 tabs omeprazole 40 mg capsule,delayed 40 mg PO HS #90 caps 08/07/22 release ferrous gluconate 236 mg (27 mg 236 mg PO .COMPLEX #36 tabs 08/09/22 iron) tablet dapsone 25 mg tablet 50 mg PO BID #240 tab-caps 08/31/22 baclofen 10 mg tablet 20 mg PO HS #90 tab-caps 09/13/22 blood sugar diagnostic #200 strips 12/18/22 lancets 33 gauge (OneTouch Delica #100 ea 12/18/22 Lancets) nystatin 100,000 unit/mL oral 1 ml PO DAILY #60 mL 02/16/23 suspension hydrocodone 10 mg-acetaminophen 1 tab PO Q6H PRN chronic pain #112 03/08/23 325 mg tablet tabs metformin 1,000 mg tablet 1,000 mg PO BID #180 tab-caps 03/19/23 prednisone 20 mg tablet 40 mg PO DAILY #10 tabs 03/21/23 Allergies Allergy/AdvReac Type Severity Reaction Status Date / Time rizatriptan benzoate Allergy Severe tongue Verified 03/26/23 15:52 [From Maxalt] swelling, diff.swallowing per pt azithromycin Allergy Intermediate SOB-pt Verified 03/26/23 15:52 reported sulfamethoxazole Allergy Intermediate Verified 03/26/23 15:52 trimethoprim [From Bactrim] Allergy Intermediate Verified 03/26/23 15:52 adhesive Allergy RASH Verified 03/26/23 15:52 wheat Allergy SKIN RASH Verified 03/26/23 15:52 sertraline AdvReac Intermediate sweating Verified 03/26/23 15:52 tramadol AdvReac Intermediate Nausea Verified 03/26/23 15:52 venlafaxine AdvReac Intermediate sweating,fa Verified 03/26/23 15:52 tigue,malai se amoxicillin AdvReac GI UPSET Verified 03/26/23 15:52 ondansetron [From Zofran] AdvReac can taste Verified 03/26/23 15:52 pill for days...per pt promethazine AdvReac jitters Verified 03/26/23 15:52 General Stated Complaint: Nausea/Vomit/Diar JOSE JUAN: 3 Review of Systems Narrative: 10 point review of system is negative unless otherwise specified in the HPI PFSH All Active Problems (Updated 03/31/23 @ 11:43 by Sridhar Biggs MD) Dehydration (Acute) Gait abnormality (Acute) Anticoagulated on warfarin (Chronic) PE; INR goal 2-3 Bursitis of right shoulder (Chronic 07/04/16) Carpal tunnel syndrome of right wrist (Chronic 08/03/15) Celiac disease (Chronic 07/19/05) Diagnosed by skin biopsy, no h/o colonoscopy. Chronic pain syndrome (Chronic 05/23/13) Depressive disorder (Chronic) Dermatitis herpetiformis (Chronic 12/31/14) Diabetes (Chronic 12/01/13) Diabetic peripheral neuropathy (Chronic 08/03/15) OPTICAL EXPRESSIONS; 08/31/15; LEFT EYE Gastroesophageal reflux disease (Chronic) History of pulmonary embolus (PE) (Chronic 05/15/13) Hyperlipidemia (Chronic) Irritable bowel syndrome with diarrhea (Chronic 06/26/17) Low back pain (Chronic) Migraine (Chronic) Nocturnal leg cramps (Chronic 07/04/16) Obesity (Chronic) Peripheral vascular disease (Chronic 07/28/14) Stable [place] [facility] [place]oker (Chronic) Spinal stenosis, lumbar region with neurogenic claudication (Chronic 08/17/15) 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) Venous insufficiency of both lower extremities (Chronic 08/03/15) Chronic pain in left foot (Chronic) Protein C deficiency (Chronic) Chronic cough (Chronic) Dyspnea on effort (Acute) Microcytic anemia (Acute) Pulmonary embolism (Acute) Plantar fasciitis (Acute) Foot pain (Acute) Elevation of level of transaminase and lactic acid dehydrogenase (LDH) (Acute) History of dysmenorrhea (Acute 07/19/95) Corns and callus (Acute) Carpal tunnel syndrome (Acute) Abnormal liver function (Acute) Corns (Chronic) Zoster (Acute) Epigastric pain (Acute) Fatigue (Acute) Chronic anticoagulation (Acute) Elevated blood pressure reading (Acute) Leg pain (Acute) Hoarseness of voice (Acute) Sore throat (Acute) Chronic anemia (Acute) Pt refuses colonoscopy. Feels related to Celiac Disease Abnormal LFTs (liver function tests) (Acute) Encounter for immunization (Acute) Gout (Chronic) Right foot pain (Acute) Chest pain (Acute) Mid back pain (Acute) Thoracic back pain (Acute) Edema of left foot (Acute) Left foot pain (Acute) Right arm pain (Acute) Other osteoporosis with current pathological fracture, left ankle and foot, sequela (Acute) Calcinosis cutis (Acute) Medical History (Updated 03/31/23 @ 11:43 by Sridhar Biggs MD) Diabetes mellitus DVT (deep venous thrombosis) GERD (gastroesophageal reflux disease) Nausea & vomiting Pulmonary embolism Surgical History (Updated 11/14/22 @ 09:24 by Kira Martinez RN) section History of angioplasty of peripheral vessel left iliac vein stent [place]10/01/2009[place] [facility] [place] 18[place], length 60mm, lot [id number] History of carpal tunnel surgery of left wrist History of section Hx of cholecystectomy Family History Mother Personal history of malignant neoplasm BONE,THYROID,BACK,LIVER,BLADDER,BREAST Father Asthma Sister No problems noted. Brother No problems noted. Social History Smoking/Tobacco Use Status: Current every day Tobacco Type: cigarettes Smoking risk assessment performed?: Yes Alcohol Intake: never Drug use: Never Substance use type: does not use Household members: spouse What type of physical activity do you participate in: none Do you feel safe at home: Yes Do you feel safe in your relationship?: Yes Exam Narrative Exam Narrative: General: A,A Ox3, Calm, no apparent distress, well developed, pleasant and cooperative Head Size/Shape: normocephalic, atraumatic Eyes Pupils: PERRLA Extraocular Mobility: intact and symmetrical Conjunctiva: non-injected, anicteric, no discharge Ears, Nose, Throat Nares: patent bilaterally Oral Cavity: moist Neck: supple Respiratory Respiratory Effort: no dyspnea Cardiovascular Pulse Quality: +2 equal bilaterally, location(s) Abdomen Inspection and Palpation: soft, non-tender, non-distended, no hepatosplenomegaly Musculoskeletal System Joints, Bones, and Muscles: no deformities Extremities: warm and well-perfused, no cyanosis, capillary refill <2 seconds Skin Skin Inspection: no rash, no lesions, no bruising Neurological Motor: normal tone, normal strength, moving all extremities equally Psychiatric: good insight, good judgement, normal mood and affect Course Vital Signs Vital signs: Vital Signs Temperature 36.9 C 03/31/23 08:53 Pulse 101 H 03/31/23 08:53 Respiratory Rate 18 03/31/23 08:53 Blood Pressure 151/73 H 03/31/23 08:53 Pulse Oximetry 93 03/31/23 08:53 Temperature 36.9 C 03/31/23 08:53 Temperature Source Oral 03/31/23 08:53 Pulse 101 H 03/31/23 08:53 Respiratory Rate 18 03/31/23 08:53 Respiratory Effort Normal 03/31/23 08:59 Blood Pressure 151/73 H 03/31/23 08:53 Pulse Oximetry 93 03/31/23 08:53 Oxygen Delivery Method Room Air 03/31/23 08:53 Oxygen Flow Rate 0 03/31/23 08:53 Pain Level 7 03/31/23 08:53
[2023-03-31] MEDS: Normal Saline 1,000 ML 1000 ML IV (09:42)
--- NOTE | 2023-03-31 10:02 | NUR.NOTE ---
Nursing Note: Report from LUIS Benton. Assumed care of patient at this time.
[2023-03-31 10:17] LABS: Anion Gap 9.6 mmol/L (3-11); BUN 9 mg/dL (7-18); CO2 26.4 mmol/L (21.0-32.0); CREATININE 0.9 mg/dL (0.55-1.02); Calcium 9.2 mg/dL (8.5-10.1); Chloride 98 mmol/L (98-107); Estimated GFR 70.51 (mL/min/1.73m2); Glucose 163 mg/dL (74-106); Potassium 4.8 mmol/L (3.5-5.1); Sodium 134 mmol/L (136-145)
[2023-03-31 10:18] LABS: INR 2.8 (0.9-1.1); Prothrombin Time 28.3 sec (9.3-11.0)
[2023-03-31 10:50] VITALS: BP 138/59; PULSE 85; RESP 16; O2SAT 100
[2023-03-31 11:50] VITALS: BP 185/68; PULSE 75; RESP 18; O2SAT 100
[2023-03-31 11:53] VITALS: BP 185/68; PULSE 75; RESP 18; O2SAT 100
== END 2023-03-31 11:54 | disposition home or self-care (01) ==
PROVIDERS: Emergency Provider Emergency Medicine; PCP Nurse Practitioner Family
DX: E86.0 Dehydration (principal)
CPT/HCPCS: 36415; 80048; 96360; 99284; 85610

== ENCOUNTER 2023-04-04 13:07 | Observation (INO) | payer OTHER, SELFPAY ==
[2023-04-04] VITALS (15 sets, daily range): BP systolic 100–167; BP diastolic 58–74; PULSE 68–90; RESP 10–19; TEMP 37.1–37.7; O2SAT 95–99
--- NOTE | 2023-04-04 13:02 | ED.GENADUL_ITS ---
Discharge Plan Disposition Patient Disposition: Admit to [facility] Discharge Details Clinical Impression: Candidiasis of mouth, Hyponatremia, Generalized weakness Primary Care Provider: Renzo Castano ED Provider: Jerman Hdz Aguirre Meds and New Rx's Prescriptions: No Action prednisone 20 mg tablet 40 mg PO DAILY Qty: 10 0RF ferrous gluconate 236 mg (27 mg iron) tablet 236 mg PO .COMPLEX Qty: 36 3RF Rx Instructions: 236 mg orally Sun, Sun, Sun; Elbow Sleeve 1 DAILY Qty: 1 0RF Rx Instructions: Dx: Left ulnar neuropathy amitriptyline 25 mg tablet 25 mg PO DAILY Qty: 90 4RF gabapentin 600 mg tablet 600 mg PO TID Qty: 270 2RF magnesium oxide 400 mg (241.3 mg magnesium) tablet 1,200 mg PO TID Qty: 270 4RF warfarin 5 mg tablet See Rx Instructions PO .COMPLEX Qty: 100 3RF Protocol: Dose Management Condition: Sunday Dose/Route: 5 mg Instruction: 1 x 5 mg tablet Condition: Sunday Dose/Route: 2.5 mg Instruction: 0.5 x 5 mg tablets Condition: Sunday Dose/Route: 5 mg Instruction: 1 x 5 mg tablet Condition: Sunday Dose/Route: 5 mg Instruction: 1 x 5 mg tablet Condition: Dose/Route: 5 mg Instruction: 1 x 5 mg tablet Condition: Sunday Dose/Route: 2.5 mg Instruction: 0.5 x 5 mg tablets Condition: Sunday Dose/Route: 5 mg Instruction: 1 x 5 mg tablet Protocol Text: Adjustment Start Date: Sunday03/26/23 INR Value: 2.7 INR Date: 03/26/23 Recheck Date: 04/25/23 Dose Instruction: 1-2 tab daily as directed by [facility] PO ; brand name only Rx Instructions: 1-2 tab daily as directed by [facility] PO ; brand name only omeprazole 40 mg capsule,delayed release(DR/EC) 40 mg PO HS Qty: 90 3RF dapsone 25 mg tablet 50 mg PO BID Qty: 240 3RF baclofen 10 mg tablet 20 mg PO HS Qty: 90 3RF (DME) blood sugar diagnostic Strip 1 ea Miscellaneous BID Qty: 200 5RF Rx Instructions: Twice a day testing (DME) lancets [OneTouch Delica Lancets] 33 gauge misc See Rx Instructions .ROUTE DAILY Qty: 100 4RF Rx Instructions: One each daily nystatin 100,000 unit/mL suspension 1 ml PO DAILY Qty: 60 0RF Rx Instructions: swish and swallow metformin 1,000 mg tablet 1,000 mg PO BID Qty: 180 4RF hydrocodone-acetaminophen 10-325 mg tablet 1 tab PO Q6H MDD 4 tabs PRN (Reason: chronic pain) Qty: 112 0RF Medical Decision Making This is an uncomfortable appearing 67-year-old female with generalized malaise and pain out of proportion to left lower extremity concerning for the possibility of necrotizing soft tissue infection for which patient will undergo CT with IV contrast. She has intact pulses in her left lower extremity and good capillary refill so I am not concerned for critical limb ischemia. Given tenderness and nodular firmness to left lower extremity will obtain CK to ensure that she does not have any rhabdomyolysis. Concerning her headache it has been going on for several days. It was not maximal in onset however she is anticoagulated so we will obtain a CT head to assess for any subdural hematoma. My suspicion is low for subarachnoid hemorrhage so I do not feel that the patient requires a CT angiogram nor lumbar puncture. Given her pain out of proportion concerning for necrotizing soft tissue infection we will draw 2 sets of blood cultures treat with ceftriaxone vancomycin and reassess. We will also get order urinalysis basic labs and a lactate. Anticipate patient will require hospitalization. Per rheumatology notes from [facility] patient has been seen in the past for left lower extremity skin thickening and concern for possible calcinosis cutis. There was suspicious for the possibility of systemic sclerosis there is also concern for the possibility of drug-induced manifestation related to warfarin. She has been referred for a biopsy with dermatology. She is on dapsone which also raises the possibility of hemolytic anemia. Given her signs of oral candidiasis we will treat with nystatin swish and swallow. I considered CVA however the patient is moving all 4 extremities spontaneously has no aphasia nor any pronator drift. Will obtain left lower extremity duplex study to assess for DVT. 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 Patient did have left lower extremity venous study at [facility] earlier this year showing no identifiable signal change compared to prior exam. Patient denies black or bloody stools so my suspicion for GI bleed is low. No jaw claudication or pain when combing hair nor any visual changes so my suspicion is low for temporal arteritis. 2:11 PM Reassuring normal lactate. TSH within normal limits. Therapeutic INR. CBC with no anemia thrombocytopenia nor leukocytosis. Negative troponin. Comprehensive metabolic panel showing mild hyponatremia. No anion gap. Hyperglycemia but normal bicarbonate not consistent with DKA. Mildly elevated alkaline phosphatase improved compared to prior. Normal CK. 2:40 PM Lower extremity duplex negative. 3:30 PM I spoke with Dr. Bañuelos from the hospitalist service who agreed graciously to hospitalize the patient under observation status. She requested tickborne panel which I ordered and a COVID swab which I also ordered. We will inquire as to last dose of prednisone to ensure patient does not need stress test steroids. Patient has not been on her steroids she reports for multiple weeks for multiple weeks. She has not taken her hydrocodone codon for several days and as result this certainly could be the cause of her pain. We will treat with oxycodone in the ED. Chronic conditions affecting the care of the patient: Peripheral artery disease History obtained from an outside historian: Patient's and daughter External record review: [facility] EMR Medications: Ceftriaxone & vancomycin Social determinants of health affecting disposition: N/A Management discussed with: Dr. Bañuelos Treatment/interventions considered: Tertiary care transfer but no critical limb ischemia Response to therapies provided: N/A HPI General Date/Time Provider Initiated Documentation: 04/04/23 13:17 . HPI Narrative: This is a 67-year-old female with history of chronic venous insufficiency, a remote left iliac stent on warfarin and May Thurner syndrome now in the emergency department in setting of generalized weakness for the past several days. Patient arrives via EMS. She is generally felt unwell for the past several days and not been eating or drinking since Sunday. She has had a severe headache nausea. She reports acute on chronic left lower extremity pain. She denies black or bloody stools. Her fingerstick blood glucose was in normal limits. Presented generalized headache for the past several days that she reports was gradual in onset but has now become severe. She has had no shortness of breath no chest pain no abdominal pain. She is taken no recent falls. She ambulates at baseline with a walker and wheelchair. She has not been able to ambulate as result of her weakness. No dysuria nor frequency. Related Data Home Medications Medication Instructions Recorded Confirmed amitriptyline 25 mg tablet 25 mg PO DAILY #90 tab-caps 10/04/20 03/26/23 gabapentin 600 mg tablet 600 mg PO TID #270 tabs 10/04/20 03/26/23 magnesium oxide 400 mg (241.3 mg 1,200 mg PO TID #270 tabs 10/04/20 03/26/23 magnesium) tablet warfarin 5 mg tablet See Rx Instructions PO .COMPLEX 05/15/22 03/26/23 #100 tabs omeprazole 40 mg capsule,delayed 40 mg PO HS #90 caps 08/07/22 03/26/23 release ferrous gluconate 236 mg (27 mg 236 mg PO .COMPLEX #36 tabs 08/09/22 03/26/23 iron) tablet dapsone 25 mg tablet 50 mg PO BID #240 tab-caps 08/31/22 03/26/23 baclofen 10 mg tablet 20 mg PO HS #90 tab-caps 09/13/22 03/26/23 blood sugar diagnostic #200 strips 12/18/22 03/26/23 lancets 33 gauge (OneTouch Delica #100 ea 12/18/22 03/26/23 Lancets) nystatin 100,000 unit/mL oral 1 ml PO DAILY #60 mL 02/16/23 03/26/23 suspension metformin 1,000 mg tablet 1,000 mg PO BID #180 tab-caps 03/19/23 03/26/23 prednisone 20 mg tablet 40 mg PO DAILY #10 tabs 03/21/23 03/26/23 hydrocodone 10 mg-acetaminophen 1 tab PO Q6H PRN chronic pain #112 04/02/23 325 mg tablet tabs Previous Rx's Medication Instructions Recorded amitriptyline 25 mg tablet 25 mg PO DAILY #90 tab-caps 10/04/20 gabapentin 600 mg tablet 600 mg PO TID #270 tabs 10/04/20 magnesium oxide 400 mg (241.3 mg 1,200 mg PO TID #270 tabs 10/04/20 magnesium) tablet warfarin 5 mg tablet See Rx Instructions PO .COMPLEX 05/15/22 #100 tabs omeprazole 40 mg capsule,delayed 40 mg PO HS #90 caps 08/07/22 release ferrous gluconate 236 mg (27 mg 236 mg PO .COMPLEX #36 tabs 08/09/22 iron) tablet dapsone 25 mg tablet 50 mg PO BID #240 tab-caps 08/31/22 baclofen 10 mg tablet 20 mg PO HS #90 tab-caps 09/13/22 blood sugar diagnostic #200 strips 12/18/22 lancets 33 gauge (RafaelTouch Delica #100 ea 12/18/22 Lancets) nystatin 100,000 unit/mL oral 1 ml PO DAILY #60 mL 02/16/23 suspension metformin 1,000 mg tablet 1,000 mg PO BID #180 tab-caps 03/19/23 prednisone 20 mg tablet 40 mg PO DAILY #10 tabs 03/21/23 hydrocodone 10 mg-acetaminophen 1 tab PO Q6H PRN chronic pain #112 04/02/23 325 mg tablet tabs Allergies Allergy/AdvReac Type Severity Reaction Status Date / Time rizatriptan benzoate Allergy Severe tongue Verified 04/04/23 13:16 [From Maxalt] swelling, diff.swallowing per pt azithromycin Allergy Intermediate SOB-pt Verified 04/04/23 13:16 reported sulfamethoxazole Allergy Intermediate Verified 04/04/23 13:16 trimethoprim [From Bactrim] Allergy Intermediate Verified 04/04/23 13:16 adhesive Allergy RASH Verified 04/04/23 13:16 wheat Allergy SKIN RASH Verified 04/04/23 13:16 sertraline AdvReac Intermediate sweating Verified 04/04/23 13:16 tramadol AdvReac Intermediate Nausea Verified 04/04/23 13:16 venlafaxine AdvReac Intermediate sweating,fa Verified 04/04/23 13:16 tigue,malai se amoxicillin AdvReac GI UPSET Verified 04/04/23 13:16 ondansetron [From Zofran] AdvReac can taste Verified 04/04/23 13:16 pill for days...per pt promethazine AdvReac jitters Verified 04/04/23 13:16 General JOSE JUAN: 3 PFSH All Active Problems (Updated 04/04/23 @ 15:28 by Jerman Hdz MD) Dehydration (Acute) Candidiasis of mouth (Acute) Hyponatremia (Acute) Generalized weakness (Acute) Gait abnormality (Acute) Anticoagulated on warfarin (Chronic) PE; INR goal 2-3 Bursitis of right shoulder (Chronic 07/04/16) Carpal tunnel syndrome of right wrist (Chronic 08/03/15) Celiac disease (Chronic 07/19/05) Diagnosed by skin biopsy, no h/o colonoscopy. Chronic pain syndrome (Chronic 05/23/13) Depressive disorder (Chronic) Dermatitis herpetiformis (Chronic 12/31/14) Diabetes (Chronic 12/01/13) Diabetic peripheral neuropathy (Chronic 08/03/15) OPTICAL EXPRESSIONS; 08/31/15; LEFT EYE Gastroesophageal reflux disease (Chronic) History of pulmonary embolus (PE) (Chronic 05/15/13) Hyperlipidemia (Chronic) Irritable bowel syndrome with diarrhea (Chronic 06/26/17) Low back pain (Chronic) Migraine (Chronic) Nocturnal leg cramps (Chronic 07/04/16) Obesity (Chronic) Peripheral vascular disease (Chronic 07/28/14) Stable RAFI 12/2022 at [facility] Smoker (Chronic) Spinal stenosis, lumbar region with neurogenic claudication (Chronic 08/17/15) 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) Venous insufficiency of both lower extremities (Chronic 08/03/15) Chronic pain in left foot (Chronic) Protein C deficiency (Chronic) Chronic cough (Chronic) Dyspnea on effort (Acute) Microcytic anemia (Acute) Pulmonary embolism (Acute) Plantar fasciitis (Acute) Foot pain (Acute) Elevation of level of transaminase and lactic acid dehydrogenase (LDH) (Acute) History of dysmenorrhea (Acute 07/19/95) Corns and callus (Acute) Carpal tunnel syndrome (Acute) Abnormal liver function (Acute) Corns (Chronic) Zoster (Acute) Epigastric pain (Acute) Fatigue (Acute) Chronic anticoagulation (Acute) Elevated blood pressure reading (Acute) Leg pain (Acute) Hoarseness of voice (Acute) Sore throat (Acute) Chronic anemia (Acute) Pt refuses colonoscopy. Feels related to Celiac Disease Abnormal LFTs (liver function tests) (Acute) Encounter for immunization (Acute) Gout (Chronic) Right foot pain (Acute) Chest pain (Acute) Mid back pain (Acute) Thoracic back pain (Acute) Edema of left foot (Acute) Left foot pain (Acute) Right arm pain (Acute) Other osteoporosis with current pathological fracture, left ankle and foot, sequela (Acute) Calcinosis cutis (Acute) Medical History (Updated 04/04/23 @ 15:28 by Jerman Hdz MD) Diabetes mellitus DVT (deep venous thrombosis) GERD (gastroesophageal reflux disease) Nausea & vomiting Pulmonary embolism Surgical History (Updated 11/14/22 @ 09:24 by Kira Martinez RN) section History of angioplasty of peripheral vessel left iliac vein stent (10/01/2009) [facility] diameter 18mm, length 60mm, lot [id number] History of carpal tunnel surgery of left wrist History of section Hx of cholecystectomy Family History Mother Personal history of malignant neoplasm BONE,THYROID,BACK,LIVER,BLADDER,BREAST Father Asthma Sister No problems noted. Brother No problems noted. Social History Smoking/Tobacco Use Status: Current every day Tobacco Type: cigarettes Smoking risk assessment performed?: Yes Alcohol Intake: never Drug use: Never Substance use type: does not use Household members: spouse What type of physical activity do you participate in: none Do you feel safe at home: Yes Do you feel safe in your relationship?: Yes Exam Narrative Exam Narrative: General: Uncomfortable and chronically ill-appearing in no acute distress speaking in complete sentences. Head: Normocephalic, atraumatic. Eye: Extraocular eye movements intact. No conjunctival injection. No scleral icterus. Ear, nose, mouth, throat: Oral candidiasis. Normal voice, handling secretions normally. Neck: Trachea midline. Cardiovascular: Well-perfused distal extremities. Regular rate and rhythm. Respiratory: Nonlabored respiration. Clear lungs bilaterally. Gastrointestinal: Nondistended abdomen. Soft nontender Musculoskeletal: Left lower extremity with varicosities and woody induration to left calf with hard tender nodules subcutaneously. Skin: Normal for age and race, grossly normal temperature and turgor. No acute rash. Neurologic: Alert and appropriate, no apparent acute deficits. 5-5 upper motor strength flexion and extension at the elbows. No prior drift. No dysmetria. No dysdiadochokinesia. GCS 15. Psychiatric: Mood and manner are appropriate. Grooming and personal hygiene are appropriate. POCUS Exam (ED) Limited Vascular Exam DATE OF EXAM: 04/04/23 TIME OF EXAM: 13:43 IS THIS A REPEAT EXAM DURING THIS ENCOUNTER: No Vascular Exam: Left lower extremity REASON FOR EXAM: Left lower extremity s welling/edema Exam Complete DIFFERENTIAL DIAGNOSES: Intact PT and DP pulses left lower extremity
--- NOTE | 2023-04-04 13:15 | DI.US_ITS ---
Exam(s) US LOWER EXTREMITY VENOUS LT EXAM: US LOWER EXTREMITY VENOUS LT CLINICAL HISTORY: Left leg pain. TECHNIQUE: Lower extremity venous ultrasound performed using grayscale, color-flow, and spectral Do ppler analysis. COMPARISON: No exams were available for comparison FINDINGS: The common femoral, femoral and popliteal veins demonstrate normal compressibility, augmentation, and color Doppler. The posterior tibial veins are patent. No saphenous vein thrombosis or other superfi cial venous thrombosis is seen. No hematoma or Stringer's cyst is seen. IMPRESSION: Negative lower extremity ultrasound. No evidence of DVT. DATA REPOSITORY:
--- NOTE | 2023-04-04 13:15 | DI.CT_ITS ---
Exam(s) CT LOWER EXTREMITY LT W EXAM: CT LOWER EXTREMITY LT W CLINICAL HISTORY: Pain out of proportion left calf tenderness. TECHNIQUE: Imaging Protocol: Axial computed tomography images with coronal and sagittal reformatted images were created and reviewed. CONTRAST MATERIAL: Intravenous: Omnipaque 350 Contrast volume:structured data in ml Contrast route:IV - COMPARISON: CR LEFT FOOT COMPLETE from 03/13/2018 CR XR FOOT RT COMPLETE from 06/22/[address] RENAL COLIC WO from 01/17/[address] LOWER EXTREMITY LT WO from 02/12/2023 US US LOWER EXTREMITY VENOUS LT from 04/04/2023 FINDINGS: Bones: There is no evidence of fracture or dislocation. No cellulitic or osteomyelitic changes are identified. No lytic or sclerotic lesions are identified. Bones appear osteopenic. Joints: There is no significant joint space narrowing. No significant periarticular spurring. Soft Tissues: Diffuse calcifications throughout subcutaneous fat. The appearance is consistent with calcifications related to chronic venous insufficiency. No evidence of hematoma or fluid collection. No evidence muscle edema. Vasculature: The arteries show CT scattered calcification but appear patent to the level of the ankle . The resolution not adequate to evaluate the foot vessels. No venous varicosities. Veins are not yet opacified with IV contrast. IMPRESSION: Diffuse calcifications in the subcutaneous fat. No hematoma or muscle swelling. Arteries appear pa tent. RADIATION DOSE DELIVERED: 173.81mGy.cm Total DLP DATA REPOSITORY: All CT scans at this facility are submitted to the National Radiology Data Registry (NRDR) Dose Index Registry (DIR) with the [employer] ([employer]). RADIATION OPTIMIZATION: All CT scans at this facility use at least one of these dose optimization te chniques: automated exposure control; mA and/or kV adjustment per patient size (includes targeted exa ms where dose is matched to clinical indication); or iterative reconstruction.
[2023-04-04 13:21] LABS: Lactate 1.2 mmol/L (0.6-1.4)
[2023-04-04 13:24] LABS: Abs Immature Grans 0.02 10^3/uL (0.0-0.06); Absolute Basophil Count 0.02 10^3/uL (0.0-0.2); Absolute Eosinophil Count 0.03 10^3/uL (0.0-0.7); Absolute Lymphocyte Count 1.34 10^3/uL (1.2-3.4); Absolute Neutrophil Count 5.32 10^3/uL (1.2-6.7); Basophils % 0.3; Eosinophils % 0.4; HCT 34.5 % (36.0-46.0); HGB 11.7 g/dL (11.2-15.7); Immature Grans % 0.3; Lymphocytes % 18.3; MCH 29.8 pg (27.0-33.0); MCHC 33.9 % (32.0-36.0); MCV 88 fL (80-95); MPV 9.5 fL (8.0-11.0); Monocytes % 8.2; Neutrophils % 72.5; Platelet Count 208 10^3/uL (130-400); RBC 3.92 10^6/uL (3.93-5.22); RDW 13.9 % (11.7-14.6); RDW-SD 44.3 fL; WBC 7.33 10^3/uL (4.4-10.8)
[2023-04-04] MEDS: Normal Saline 1,000 ML 1000 ML IV (13:30)
--- NOTE | 2023-04-04 13:30 | DI.CT_ITS ---
Exam(s) CT HEAD WO EXAM: CT HEAD WO CLINICAL HISTORY: Headache. TECHNIQUE: Imaging Protocol: Axial computed tomography images with coronal and sagittal reformatted images were created and reviewed COMPARISON: CT HEAD WITHOUT STROKE PROTOCOL from 03/25/2018 FINDINGS: Ventricles and Extra axial spaces: Normal in size and morphology for the patient's age. Hemorrhage: None. Cerebral parenchyma: No evidence of acute infarct or mass. Mild atrophy. Midline shift: None. Brainstem/Cerebellum: Normal. Calvarium: Normal. Visualized Paranasal sinuses/Mastoids: Clear. Soft Tissues: Unremarkable. IMPRESSION: No acute intracranial process. RADIATION DOSE DELIVERED: 671.49mGy.cm Total DLP DATA REPOSITORY: All CT scans at this facility are submitted to the National Radiology Data Registry (NRDR) Dose Index Registry (DIR) with the [employer] (ACR). RADIATION OPTIMIZATION: All CT scans at this facility use at least one of these dose optimization te chniques: automated exposure control; mA and/or kV adjustment per patient size (includes targeted exa ms where dose is matched to clinical indication); or iterative reconstruction.
[2023-04-04 13:35] LABS: INR 2.6 (0.9-1.1); Prothrombin Time 26.5 sec (9.3-11.0)
[2023-04-04] MEDS: cefTRIAXone 2 GM/50 ML BAG IVPB (13:40)
[2023-04-04 13:49] LABS: ALT 37 U/L (14-59); AST 35 U/L (15-37); Albumin 3.4 g/dL (3.4-5.0); Alkaline Phosphatase 142 U/L (46-116); Anion Gap 10.7 mmol/L (3-11); BUN 15 mg/dL (7-18); Bilirubin, Total 0.5 mg/dL (0.2-1.0); CO2 25.3 mmol/L (21.0-32.0); CREATININE 0.9 mg/dL (0.55-1.02); Calcium 9.5 mg/dL (8.5-10.1); Chloride 93 mmol/L (98-107); Creatine Kinase 51 U/L (26-192); Estimated GFR 70.51 (mL/min/1.73m2); Glucose 125 mg/dL (74-106); Potassium 4.1 mmol/L (3.5-5.1); Sodium 129 mmol/L (136-145); TSH (W/Ref FT4) 1.17 uIU/mL (0.36-3.74); Total Protein 8.3 g/dL (6.4-8.2); Troponin I < 50 ng/L (<or=60)
[2023-04-04] MEDS: Omnipaque 350 MG/ML 100 ML BTL IJ (14:52)
[2023-04-04] MEDS: Normal Saline - Diluent 50 ML VIAL IJ (14:53)
[2023-04-04] MEDS: VANCOMYCIN/WATER (PEG) 1.25 GM/250 ML BAG IV (15:01)
[2023-04-04] MEDS: oxyCODONE 5 MG TAB PO (15:59)
[2023-04-04 16:28] LABS: COVID-19 PCR Negative (Negative); Influenza A PCR Negative (Negative); Influenza B PCR Negative (Negative); RSV PCR Negative (Negative)
[2023-04-04 16:31] LABS: Source Nasopharynx
--- NOTE | 2023-04-04 17:30 | W.PM.HP.N ---
Date of service: 04/04/23 Time of Service: 17:25 Assessment and Plan Assessment and plan (1) Dehydration: Status: Acute Assessment and plan: Patient has not been eating or drinking for last several days No JASON No urinary symptoms Normal saline bolus given in the ED continue at 125 mL an hour (2) Nausea & vomiting: Assessment and plan: Patient allergic to ondansetron and promethazine Patient complaining of nausea dry heaving no vomiting Patient given lorazepam 1 mg IV with good relief (3) Hyponatremia: Status: Acute Assessment and plan: Sodium 129 - trend Hydrate Normal saline 125 mL an hour did receive 1 L in the emergency department (4) Candidiasis of mouth: Status: Acute Assessment and plan: Acute candidiasis of the mouth Nystatin swish and swallow 5 times a day (5) Generalized weakness: Status: Acute Assessment and plan: Hydrate Check electrolytes PT consultation (6) Diabetes: Status: Chronic Assessment and plan: Hold metformin Fingersticks before meals and at bedtime Scale insulin (7) Anticoagulated on warfarin: Status: Chronic Assessment and plan: Hold warfarin tonight INR 2.6 Discussion with pharmacy hospitalist MD and PCP will discontinue warfarin and start a apixaban 5 mg twice daily once INR is less than 2 we will check INR in the morning (8) DVT prophylaxis: Status: Acute Assessment and plan: On warfarin (9) Discharge planning issues: Status: Acute Assessment and plan: Home when medically stable Apixaban 5 mg BID Rx and discontinue Warfarin History of Present Illness History of Present Illness Chief Complaint: Malaise, nausea, gernalized weakness Narrative: This is a 67 year old female patient, appears older than stated age, with past medical hisotry of chronic venous insufficiency, remote left iliac stent on warfarin, and May Thurner syndrome who presented via EMS to the [facility] ED with complaint of weakness for several days. Patient stated she had not been eating or drinking well for about a week, had a headache, and nausea, she was also complaining of pain in her left lower extremity. Patient denied pain shortness of breath diarrhea fever no recent falls. Patient generally ambulates with a walker and does use wheelchair. She denied dysuria and frequency. In the ED patient had good pulses in the left lower extremity good capillary refill. In the ED blood cultures were drawn CBC with no anemia no thrombocytopenia no leukocytosis, negative troponin, CMP showed mild hyponatremia with sodium at 129. No anion gap. Hyperglycemia but normal bicarb not consistent with DKA. Mildly elevated alkaline phosphatase improved compared to prior. Normal CK. Normal lactate. TSH normal. Therapeutic INR 2.6. Tick panel pending. Imaging lower extremity duplex negative for DVT. Head CT no acute intracranial process. Lower extremity CT left diffuse calcifications in the subcutaneous fat no hematoma or muscle swelling arteries appear patent. Patient has candidiasis of the mouth. Patient chronically takes Hydrocodone and has a controlled substance prescription contract, however patient reported she has not taken hydrocodone for several days which could attribute to her pain and nausea. She did receive oxycodone 5 mg in the ED. She has allergies to ondansetron and promethazine. Patient is placed on observation status on the medical floor for further testing and treatment. Review of Systems All systems reviewed & are unremarkable except as noted in HPI and below PFSH All Active Problems (Updated 04/05/23 @ 15:15 by Laura Rocha NP) Hypomagnesemia (Acute) Myositis associated antibody positive (Acute) Per [facility] DVT prophylaxis (Acute) Discharge planning issues (Acute) Dehydration (Acute) Candidiasis of mouth (Acute) Hyponatremia (Acute) Generalized weakness (Acute) Gait abnormality (Acute) Anticoagulated on warfarin (Chronic) PE; INR goal 2-3 Bursitis of right shoulder (Chronic 07/04/16) Carpal tunnel syndrome of right wrist (Chronic 08/03/15) Celiac disease (Chronic 07/19/05) Diagnosed by skin biopsy, no h/o colonoscopy. Chronic pain syndrome (Chronic 05/23/13) Depressive disorder (Chronic) Dermatitis herpetiformis (Chronic 12/31/14) Diabetes (Chronic 12/01/13) Diabetic peripheral neuropathy (Chronic 08/03/15) OPTICAL EXPRESSIONS; 08/31/15; LEFT EYE Gastroesophageal reflux disease (Chronic) History of pulmonary embolus (PE) (Chronic 05/15/13) Hyperlipidemia (Chronic) Irritable bowel syndrome with diarrhea (Chronic 06/26/17) Low back pain (Chronic) Migraine (Chronic) Nocturnal leg cramps (Chronic 07/04/16) Obesity (Chronic) Peripheral vascular disease (Chronic 07/28/14) Stable RAFI 12/2022 at [facility] [place], [place] Smoker (Chronic) Spinal stenosis, lumbar region with neurogenic claudication (Chronic 08/17/15) 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) Venous insufficiency of both lower extremities (Chronic 08/03/15) Chronic pain in left foot (Chronic) Protein C deficiency (Chronic) Chronic cough (Chronic) Dyspnea on effort (Acute) Microcytic anemia (Acute) Pulmonary embolism (Acute) Plantar fasciitis (Acute) Foot pain (Acute) Elevation of level of transaminase and lactic acid dehydrogenase (LDH) (Acute) History of dysmenorrhea (Acute 07/19/95) Corns and callus (Acute) Carpal tunnel syndrome (Acute) Abnormal liver function (Acute) Corns (Chronic) Zoster (Acute) Epigastric pain (Acute) Fatigue (Acute) Chronic anticoagulation (Acute) Elevated blood pressure reading (Acute) Leg pain (Acute) Hoarseness of voice (Acute) Sore throat (Acute) Chronic anemia (Acute) Pt refuses colonoscopy. Feels related to Celiac Disease Abnormal LFTs (liver function tests) (Acute) Encounter for immunization (Acute) Gout (Chronic) Right foot pain (Acute) Chest pain (Acute) Mid back pain (Acute) Thoracic back pain (Acute) Edema of left foot (Acute) Left foot pain (Acute) Right arm pain (Acute) Other osteoporosis with current pathological fracture, left ankle and foot, sequela (Acute) Calcinosis cutis (Acute) Medical History (Updated 04/05/23 @ 15:15 by Laura Rocha NP) Diabetes mellitus DVT (deep venous thrombosis) GERD (gastroesophageal reflux disease) Nausea & vomiting Pulmonary embolism Surgical History (Updated 11/14/22 @ 09:24 by Kira Martinez RN) section History of angioplasty of peripheral vessel left iliac vein stent (10/01/2009) [facility] [place] [place] diameter 18mm, length 60mm, lot [id number] History of carpal tunnel surgery of left wrist History of section Hx of cholecystectomy Family History Mother Personal history of malignant neoplasm BONE,THYROID,BACK,LIVER,BLADDER,BREAST Father Asthma Sister No problems noted. Brother No problems noted. Social History Smoking/Tobacco Use Status: Current every day Tobacco Type: cigarettes Smoking risk assessment performed?: Yes Alcohol Intake: never Drug use: Never Substance use type: does not use Household members: spouse Housing: house What type of physical activity do you participate in: none Do you feel safe at home: Yes Do you feel safe in your relationship?: Yes Meds Allergies and Home Medications Allergies Allergy/AdvReac Type Severity Reaction Status Date / Time rizatriptan benzoate Allergy Severe tongue Verified 04/04/23 13:16 [From Maxalt] swelling, diff.swallowing per pt azithromycin Allergy Intermediate SOB-pt Verified 04/04/23 13:16 reported sulfamethoxazole Allergy Intermediate Verified 04/04/23 13:16 trimethoprim [From Bactrim] Allergy Intermediate Verified 04/04/23 13:16 adhesive Allergy RASH Verified 04/04/23 13:16 wheat Allergy SKIN RASH Verified 04/04/23 13:16 sertraline AdvReac Intermediate sweating Verified 04/04/23 13:16 tramadol AdvReac Intermediate Nausea Verified 04/04/23 13:16 venlafaxine AdvReac Intermediate sweating,fa Verified 04/04/23 13:16 tigue,malai se amoxicillin AdvReac GI UPSET Verified 04/04/23 13:16 ondansetron [From Zofran] AdvReac can taste Verified 04/04/23 13:16 pill for days...per pt promethazine AdvReac jitters Verified 04/04/23 13:16 Home Medications Medication Instructions Recorded Confirmed Type Elbow Sleeve 1 DAILY #1 ea 03/21/16 04/30/19 Clinic gabapentin 600 mg tablet 600 mg PO TID #270 tabs 10/04/20 04/04/23 Rx omeprazole 40 mg capsule,delayed 40 mg PO HS #90 caps 08/07/22 04/04/23 Rx release dapsone 25 mg tablet 50 mg PO BID #240 tab-caps 08/31/22 04/04/23 Rx baclofen 10 mg tablet 20 mg PO HS #90 tab-caps 09/13/22 04/04/23 Rx blood sugar diagnostic #200 strips 12/18/22 03/26/23 Rx lancets 33 gauge (OneTouch Delica #100 ea 12/18/22 03/26/23 Rx Lancets) metformin 1,000 mg tablet 1,000 mg PO BID #180 tab-caps 03/19/23 04/04/23 Rx hydrocodone 10 mg-acetaminophen 1 tab PO Q6H PRN chronic pain #112 04/02/23 04/04/23 Rx 325 mg tablet tabs amitriptyline 25 mg tablet 25 mg PO QHS 04/04/23 04/04/23 History ferrous gluconate 324 mg (37.5 mg 324 mg PO QMWF 04/04/23 04/04/23 History iron) tablet warfarin 5 mg tablet 5 mg PO QPM 04/04/23 History apixaban 5 mg tablet (Eliquis) 5 mg PO BID 04/05/23 04/05/23 History clotrimazole 10 mg emily 10 mg mucous membrane .5xd #30 tabs 04/05/23 Rx magnesium chloride 64 mg 128 mg PO BID #120 tabs 04/05/23 Rx (magnesium chloride) tablet,delayed release Exam Narrative Exam Narrative: General: Uncomfortable, appears older than stated age, edentulous and chronically ill-appearing in no acute distress speaking in complete sentences. Head: Normocephalic, atraumatic. Eye: Extraocular eye movements intact.? No conjunctival injection.? No scleral icterus. Ear, nose, mouth, throat: Oral candidiasis.? Normal voice, handling secretions normally. Neck: Trachea midline. Cardiovascular: Well-perfused distal extremities.? Regular rate and rhythm. Respiratory: Nonlabored respiration.? Clear lungs bilaterally. Gastrointestinal: Nondistended abdomen.? Soft nontender Musculoskeletal: Left lower extremity with varicosities and woody induration to left calf with hard tender nodules subcutaneously. Skin: Normal for age and race, grossly normal temperature and turgor.? No acute rash. Neurologic: Alert and appropriate, no apparent acute deficits.? 5-5 upper motor strength flexion and extension at the elbows.? No prior drift.? Psychiatric: Mood and manner are appropriate.? Grooming and personal hygiene are appropriate. Results Labs 04/05/23 06:07 04/05/23 06:07 Labs: Laboratory Results - last 24 hr 04/04/23 04/04/23 04/04/23 13:15 13:15 13:15 WBC 7.33 RBC 3.92 L Hgb 11.7 Hct 34.5 L MCV 88 MCH 29.8 MCHC 33.9 RDW 13.9 Plt Count 208 MPV 9.5 Immature Gran % 0.3 Neutrophils % 72.5 Lymphocytes % 18.3 Monocytes % 8.2 Eosinophils % 0.4 Basophils % 0.3 Nucleated RBC % 0.0 Absolute Neutrophils 5.32 Absolute Lymphocytes 1.34 Absolute Monocytes 0.60 Absolute Eosinophils 0.03 Absolute Basophils 0.02 PT INR VBG Lactate 1.2 Sodium 129 L Potassium 4.1 Chloride 93 L Carbon Dioxide 25.3 Anion Gap 10.7 BUN 15 Creatinine 0.9 Est GFR (CKD-EPI 2020) 70.51 Glucose 125 H Calcium 9.5 Total Bilirubin 0.5 AST 35 ALT 37 Alkaline Phosphatase 142 H Creatine Kinase 51 Troponin I < 50 Total Protein 8.3 H Albumin 3.4 Procalcitonin TSH 1.17 Urine Color Urine Clarity Urine pH Ur Specific [place] Urine Protein Urine Ketones Urine Blood Urine Nitrite Urine Bilirubin Urine Urobilinogen Ur Leukocyte Esterase Urine RBC Urine WBC Ur Epithelial Cells Urine Crystals Urine Bacteria Urine Mucus Ur Culture Indicated? Urine Glucose COVID-19 Source SARS-CoV-2 (PCR) Influenza Type A (PCR) Influenza Type B (PCR) RSV (PCR) 04/04/23 04/04/23 04/04/23 13:15 13:51 15:40 WBC RBC Hgb Hct MCV MCH MCHC RDW Plt Count MPV Immature Gran % Neutrophils % Lymphocytes % Monocytes % Eosinophils % Basophils % Nucleated RBC % Absolute Neutrophils Absolute Lymphocytes Absolute Monocytes Absolute Eosinophils Absolute Basophils PT 26.5 H INR 2.6 H VBG Lactate Sodium Potassium Chloride Carbon Dioxide Anion Gap BUN Creatinine Est GFR (CKD-EPI 2020) Glucose Calcium Total Bilirubin AST ALT Alkaline Phosphatase Creatine Kinase Troponin I Total Protein Albumin Procalcitonin < 0.1 TSH Urine Color Urine Clarity Urine pH Ur Specific [place] Urine Protein Urine Ketones Urine Blood Urine Nitrite Urine Bilirubin Urine Urobilinogen Ur Leukocyte Esterase Urine RBC Urine WBC Ur Epithelial Cells Urine Crystals Urine Bacteria Urine Mucus Ur Culture Indicated? Urine Glucose COVID-19 Source Nasopharynx SARS-CoV-2 (PCR) Negative Influenza Type A (PCR) Negative Influenza Type B (PCR) Negative RSV (PCR) Negative 04/04/23 18:15 WBC RBC Hgb Hct MCV MCH MCHC RDW Plt Count MPV Immature Gran % Neutrophils % Lymphocytes % Monocytes % Eosinophils % Basophils % Nucleated RBC % Absolute Neutrophils Absolute Lymphocytes Absolute Monocytes Absolute Eosinophils Absolute Basophils PT INR VBG Lactate Sodium Potassium Chloride Carbon Dioxide Anion Gap BUN Creatinine Est GFR (CKD-EPI 2020) Glucose Calcium Total Bilirubin AST ALT Alkaline Phosphatase Creatine Kinase Troponin I Total Protein Albumin Procalcitonin TSH Urine Color Yellow Urine Clarity Clear Urine pH 5.5 Ur Specific [place] 1.010 Urine Protein 30 H Urine Ketones 15 H Urine Blood Trace-intact H Urine Nitrite Negative Urine Bilirubin Negative Urine Urobilinogen 0.2 Ur Leukocyte Esterase Negative Urine RBC 0-2 Urine WBC 0-2 Ur Epithelial Cells Negative Urine Crystals Negative Urine Bacteria Negative Urine Mucus Negative Ur Culture Indicated? No Urine Glucose Negative COVID-19 Source SARS-CoV-2 (PCR) Influenza Type A (PCR) Influenza Type B (PCR) RSV (PCR) Last Vital Signs Temp 37.6 C H 04/04/23 19:28 Pulse 82 04/04/23 19:28 Resp 18 04/04/23 19:28 BP 154/68 H 04/04/23 19:28 Pulse Ox 97 04/04/23 19:28 Time Spent Time spent with Patient: 55-74 minutes Time was spent: preparing to see the patient(eg.review tests), obtaining and/or reviewing separately otained hiistory, ordering medications,tests, procedures, referring, communicating with other health pediatric acute care unit nurse, indepentently interpreting results, counseling the patient and care coordination
[2023-04-04] MEDS: Normal Saline 1,000 ML 150 ML IV ×2 (17:32→17:46)
[2023-04-04] MEDS: ACETAMINOPHEN 1,000 MG/100 ML BTL 400 MG IVPB (17:45)
[2023-04-04 18:04] LABS: Procalcitonin < 0.1 ng/mL
[2023-04-04] MEDS: LORazepam 2 MG/ML VIAL 1 MG IVP (18:08)
[2023-04-04 18:34] LABS: Bilirubin Negative (Negative); Blood Trace-intact (Negative); Clarity Clear (Clear); Glucose Negative (Negative); Ketones 15 mg/dL (Negative); Leukocyte Esterase Negative (Negative); Nitrite Negative (Negative); Urobilinogen 0.2 mg/dL (Up to 0.2); pH 5.5 (5-8)
[2023-04-04 18:41] LABS: Bacteria Negative HPF (Negative); C & S Indicated? No; Crystals Negative HPF (Negative); Epithelial Cells Negative HPF (Negative); Mucus Negative (Negative); RBC 0-2 HPF (0-2); WBC 0-2 HPF (0-5)
--- NOTE | 2023-04-04 18:53 | TELEP.MEDR_ITS ---
Date of service: 04/04/23 Time of Service: 18:53 Telepharmacy Home Med Rec Allergies Allergies: rizatriptan benzoate [From Maxalt] Allergy (Severe, Verified 04/04/23 13:16) tongue swelling, diff.swallowing per pt azithromycin Allergy (Intermediate, Verified 04/04/23 13:16) SOB-pt reported sulfamethoxazole Allergy (Intermediate, Verified 04/04/23 13:16) trimethoprim [From Bactrim] Allergy (Intermediate, Verified 04/04/23 13:16) adhesive Allergy (Verified 04/04/23 13:16) RASH wheat Allergy (Verified 04/04/23 13:16) SKIN RASH sertraline Adverse Reaction (Intermediate, Verified 04/04/23 13:16) sweating tramadol Adverse Reaction (Intermediate, Verified 04/04/23 13:16) Nausea venlafaxine Adverse Reaction (Intermediate, Verified 04/04/23 13:16) sweating,fatigue,malaise amoxicillin Adverse Reaction (Verified 04/04/23 13:16) GI UPSET ondansetron [From Zofran] Adverse Reaction (Verified 04/04/23 13:16) can taste pill for days...per pt promethazine Adverse Reaction (Verified 04/04/23 13:16) milton Interview Person Interviewed: * Patient & Quality Quality of Interview/Accuracy of Medication List: Fair Sources Sources used to compile medication list: [employer]! Medication List, SureScripts and Other Changes made to Home Medication List: ADDITIONS: * Warfarin PO qPM (patient could not recall dose) DELETIONS: * Apixaban * Nystatin harjit'n * Prednisone CHANGES: * Magnesium oxide 400mg PO 3x per week Additional Notes Additional Notes: * Warfarin- patient and report she takes warfarin at home, however neither were sure of the current dose. Most recently filled for 5mg tabs (Si-2 tabs PO daily) on 03/16/23 (50 day supply) Recommended Changes Recommended Changes(reason for recommendation): * none Attestation: The home medication list is now updated to the best of my knowledge and is ready to be reconciled by the provider. Please contact the [facility] Medication Reconciliation Pharmacist at for any questions.
[2023-04-04] MEDS: Gabapentin 600 MG TAB PO (21:00)
[2023-04-04] MEDS: Baclofen 10 MG TAB 20 MG PO (22:55)
[2023-04-04] MEDS: Amitriptyline 25 MG TAB PO (22:55)
[2023-04-04] MEDS: Pantoprazole 40 MG TABCR PO (22:55)
[2023-04-04] MEDS: Dapsone 25 MG TABLET 50 MG PO (22:56)
[2023-04-04] MEDS: Nystatin 500000 UNITS/5 ML SUSP 5ML CUP PO (22:56)
[2023-04-05] MEDS: Normal Saline 1,000 ML 150 ML IV ×2 (00:22→06:44)
[2023-04-05] MEDS: Nystatin 500000 UNITS/5 ML SUSP 5ML CUP PO ×3 (06:44→13:36)
[2023-04-05 07:31] LABS: Abs Immature Grans 0.02 10^3/uL (0.0-0.06); Absolute Basophil Count 0.02 10^3/uL (0.0-0.2); Absolute Eosinophil Count 0.07 10^3/uL (0.0-0.7); Absolute Lymphocyte Count 1.29 10^3/uL (1.2-3.4); Absolute Monocyte Count 0.42 10^3/uL (0.1-0.8); Basophils % 0.5; Eosinophils % 1.6; HCT 32.1 % (36.0-46.0); HGB 10.6 g/dL (11.2-15.7); Immature Grans % 0.5; Lymphocytes % 29.9; MCH 30.1 pg (27.0-33.0); MCV 91 fL (80-95); MPV 10.2 fL (8.0-11.0); Monocytes % 9.7; Neutrophils % 57.8; Platelet Count 175 10^3/uL (130-400); RBC 3.52 10^6/uL (3.93-5.22); RDW 14.2 % (11.7-14.6); WBC 4.32 10^3/uL (4.4-10.8)
[2023-04-05 07:42] LABS: PTT Activated 38.9 sec (21.5-31.9)
[2023-04-05 07:45] LABS: Anion Gap 9.7 mmol/L (3-11); BUN 11 mg/dL (7-18); CO2 22.3 mmol/L (21.0-32.0); CREATININE 0.9 mg/dL (0.55-1.02); Calcium 8.7 mg/dL (8.5-10.1); Chloride 106 mmol/L (98-107); Estimated GFR 70.51 (mL/min/1.73m2); Glucose 93 mg/dL (74-106); Magnesium 1.6 mg/dL (1.8-2.4); Potassium 3.8 mmol/L (3.5-5.1); Sodium 138 mmol/L (136-145)
[2023-04-05 07:55] VITALS: BP 144/75; PULSE 65; RESP 12; TEMP 37; O2SAT 95
[2023-04-05] MEDS: Amitriptyline 25 MG TAB PO (09:05)
[2023-04-05] MEDS: Dapsone 25 MG TABLET 50 MG PO (09:05)
[2023-04-05] MEDS: Gabapentin 600 MG TAB PO ×2 (09:05→13:36)
[2023-04-05] MEDS: Magnesium Oxide 400 MG TAB PO (09:06)
[2023-04-05] MEDS: MAGNESIUM SULFATE 2 GM/50 ML BAG IVPB (09:06)
[2023-04-05 09:50] LABS: Lyme Ab w Rflx to Lyme Confirm Negative (Negative)
[2023-04-05 11:30] VITALS: BP 125/74; PULSE 80; RESP 14; TEMP 36.2; O2SAT 97
--- NOTE | 2023-04-05 13:31 | DSE_ITS ---
Date of service: 04/05/23 Time of Service: 13:32 DS: Diagnosis Discharge Diagnosis (1) Dehydration: Status: Acute (2) Nausea & vomiting: (3) Hyponatremia: Status: Acute (4) Candidiasis of mouth: Status: Acute (5) Generalized weakness: Status: Acute (6) Diabetes: Status: Chronic (7) Anticoagulated on warfarin: Status: Chronic (8) DVT prophylaxis: Status: Acute (9) Discharge planning issues: Status: Acute Discharge Plan Disposition Patient Disposition: Home Condition: Improving Discharge Details Reason For Visit: Hyponatremia Admit Date/Time: 04/04/23 15:38 Admit Provider: Leda Bañuelos Attending Provider: Leda Bañuelos Primary Care Provider: Renzo Castano Hospital Course Hospital Course: This is a 67 year old female patient, appears older than stated age, with past medical history of chronic venous insufficiency, remote left iliac stent on warfarin, and May Thurner syndrome who presented via EMS to the [facility] ED on 04/04 with complaint of weakness for several days.? Patient stated she had not been eating or drinking well for about a week, had a headache, and nausea, she was also complaining of pain in her left lower extremity.? Patient denied chest pain shortness of breath diarrhea fever no recent falls generally ambulates with a walker and does use wheelchair. Patient denied dysuria and frequency.? In the ED patient had good pulses in the left lower extremity good capillary refill.? In the ED blood cultures were drawn, CBC with no anemia no thrombocytopenia no leukocytosis, negative troponin, CMP showed mild hyponatremia with sodium at 129.? No anion gap.? Hyperglycemia but normal bicarb not consistent with DKA.? Mildly elevated alkaline phosphatase improved compared to prior.? Normal CK.? Normal lactate.? TSH normal.? Therapeutic INR 2.6.? Tick panel pending.? Imaging lower extremity duplex negative for DVT.? Head CT no acute intracranial process.? Lower extremity CT left diffuse calcifications in the subcutaneous fat no hematoma or muscle swelling arteries appear patent. Patient has candidiasis of the mouth.? Patient chronically takes [place] codone and has a controlled substance prescription contract, however patient reported she has not taken hydrocodone for several days which could attribute to her pain and nausea.? She did receive oxycodone 5 mg in the ED.? She has allergies to ondansetron and promethazine.? Patient was placed on observation status on the medical floor for further testing and treatment. She did well overnight and was awake and eating breakfast with no nausea. She was able to ambulate at baseline with PT. Research regarding changing her from warfarin to apixaban and discussion with PCP and pharmacy it was decided she would benefit from stopping warfarin and starting apixaban, no INR needed and it is the recommended treatment. Graciela was called and it is a reasonable cost at 1$ per pill. Discussion with patient and she is in agreement. Patient was instructed to stop warfarin and discard any remaining pills. Her INR will be checked at the PCP office on Sunday, she can start the apixaban, 5 mg twice a day once her INR is below 2. Patient reports taking magnesium 800 mg four times a day with chronic diarrheas. Magnesium maldonado ged to slomag 128 mg twice a day, better absorption and less diarrhea. Patient had hyponatrmia that resolved with IV fluid. She has candidacies of the mouth and is to start clortrimazole 10 mg emily 5 times a day for 7-10 days, she can stop when she is better. Patient was discharged to home stable. ? Home Meds and New Rx's Prescriptions: New clotrimazole 10 mg emily 10 mg mucous membrane .5xd Qty: 30 1RF magnesium chloride 64 mg tablet,delayed release (DR/EC) 128 mg PO BID Qty: 120 0RF Discontinued warfarin 5 mg tablet See Rx Instructions PO .COMPLEX Qty: 100 3RF Protocol: Dose Management Condition: Sunday Dose/Route: 5 mg Instruction: 1 x 5 mg tablet Condition: Sunday Dose/Route: 2.5 mg Instruction: 0.5 x 5 mg tablets Condition: Sunday Dose/Route: 5 mg Instruction: 1 x 5 mg tablet Condition: Sunday Dose/Route: 5 mg Instruction: 1 x 5 mg tablet Condition: Dose/Route: 5 mg Instruction: 1 x 5 mg tablet Condition: Sunday Dose/Route: 2.5 mg Instruction: 0.5 x 5 mg tablets Condition: Sunday Dose/Route: 5 mg Instruction: 1 x 5 mg tablet Protocol Text: Adjustment Start Date: Sunday03/26/23 INR Value: 2.7 INR Date: 03/26/23 Recheck Date: 04/25/23 Dose Instruction: 1-2 tab daily as directed by [facility] PO ; brand name only Rx Instructions: 1-2 tab daily as directed by [facility] PO ; brand name only magnesium oxide 400 mg magnesium Tablet 400 mg PO QMWF No Action Elbow Sleeve 1 DAILY Qty: 1 0RF Rx Instructions: Dx: Left ulnar neuropathy gabapentin 600 mg tablet 600 mg PO TID Qty: 270 2RF omeprazole 40 mg capsule,delayed release(DR/EC) 40 mg PO HS Qty: 90 3RF dapsone 25 mg tablet 50 mg PO BID Qty: 240 3RF baclofen 10 mg tablet 20 mg PO HS Qty: 90 3RF (DME) blood sugar diagnostic Strip 1 ea Miscellaneous BID Qty: 200 5RF Rx Instructions: Twice a day testing (DME) lancets [OneTouch Delica Lancets] 33 gauge misc See Rx Instructions .ROUTE DAILY Qty: 100 4RF Rx Instructions: One each daily metformin 1,000 mg tablet 1,000 mg PO BID Qty: 180 4RF hydrocodone-acetaminophen 10-325 mg tablet 1 tab PO Q6H MDD 4 tabs PRN (Reason: chronic pain) Qty: 112 0RF amitriptyline 25 mg Tablet 25 mg PO QHS ferrous gluconate 324 mg (37.5 mg iron) tablet 324 mg PO QMWF warfarin 5 mg Tablet 5 mg PO QPM Eliquis 5 mg tablet 5 mg PO BID Discharge Instructions Instructions: Clotrimazole (Into the mouth), Mineral Supplement Combination (By mouth), Apixaban (By mouth), Hyponatremia (DC), Oral Candidiasis (ED), Hypomagnesemia (DC) Additional Instructions: STOP Warfarin and discard any remaining pills. Have INR checked Sunday at [facility]. Start Apixaban 5 mg two times a day when INR is below 2. You do not need INR checked once you start Apixaban Start clortrimazole wafers 5 times a day for 7-10 days until improved Take magnesium chloride slo-mag 2 pills twice a day, it has better absorption. Stop magnesium oxide. Have labs checked next Sunday. Stand Alone Forms: Nursing Discharge Form Referrals: Renzo Castano NP [Primary Care Provider] - 04/24/23 8:00 am (1-2 weeks Hyponatremia Discontinued warfarin started apixaban 5 mg BID (increased dose s/t Protein C Deficiency) as discussed Started mag chl to 128 mg BID - BMP next week Oral thrush - clotrimazole troches 5xd - 7-10d) Activity:: Activity as Tolerated Equipment/Supplies:: No Equipment Needed Diet:: As Tolerated Discharge Orders Discharge Orders: Discharge Order (Routine); Ordered 04/05/23 Ordered By: Laura Rocha Other Ambulatory Orders: Basic Metabolic Panel (Routine) Timeframe: [id number] Location: None Selected Ordered By: Laura Rocha Discharge Data Discharge Date/Time-TO BE ENTERED AT DEPARTURE: 04/05/23 15:38 DS: Summary Time Spent with Patient providing and/or coordinating discharge services: Greater than 30 minutes Status at Discharge Functional status at discharge: uses cane/walker Overall status at discharge: patient is back to baseline Mental Status: mental status grossly normal Speech and Movement: speech and movement normal Mood: congruent mood Affect: normal affect Exam Narrative Exam Narrative: General: comfortable, appears older than stated age, edentulous and chronically ill-appearing in no acute distress speaking in complete sentences. Head: Normocephalic, atraumatic. Eye: Extraocular eye movements intact.? No conjunctival injection.? No scleral icterus. Ear, nose, mouth, throat: Oral candidiasis.? Normal voice, handling secretions normally. Neck: Trachea midline. Cardiovascular: Well-perfused distal extremities.? Regular rate and rhythm. Respiratory: Nonlabored respiration.? Clear lungs bilaterally. Gastrointestinal: Nondistended abdomen.? Soft nontender Musculoskeletal: Left lower extremity with varicosities and woody induration to left calf with hard tender nodules subcutaneously. Skin: Normal for age and race, grossly normal temperature and turgor.? No acute rash. Neurologic: Alert and appropriate, no apparent acute deficits.? 5-5 upper motor strength flexion and extension at the elbows.? No prior drift.? Psychiatric: Mood and manner are appropriate.? Grooming and personal hygiene are appropriate. Psych Mental Status: mental status grossly normal Speech and Movement: speech and movement normal Mood: congruent mood Affect: normal affect DS: Data Vitals/I&O Vitals and I&O: Vital Signs Temperature 36.2 C L 04/05/23 11:30 Temperature Source Tympanic 04/05/23 11:30 Pulse 80 04/05/23 11:30 Pulse Rhythm Regular 04/05/23 00:29 Pulse 82 04/04/23 16:01 Respiratory Rate 14 04/05/23 11:30 Respiratory Effort Normal 04/05/23 00:29 Respiratory Depth Normal 04/05/23 00:29 Respiratory Pattern Normal 04/05/23 00:29 Blood Pressure 125/74 04/05/23 11:30 Blood Pressure Mean 81 04/04/23 16:01 Blood Pressure Position Supine 04/04/23 13:07 Pulse Oximetry 97 04/05/23 11:30 Oxygen Delivery Method Room Air 04/05/23 11:30 Oxygen Flow Rate 0 04/05/23 11:30 Pain Level 0 04/05/23 07:55 Intake & Output 04/04/23 04/05/23 04/05/23 23:59 11:59 23:59 Intake Total 1435 / 1435 1994 Output Total 750 / 750 1700 / 1700 Balance 685 / 685 295 / 295 Weight 56.2 kg Intake: IV 1435 / 1435 1994 Output: Urine 750 / 750 1700 / 1700 Other: Urine Color Pale Pale Yellow Yellow Urine Appearance Clear Clear Urine Odor None None Comment pt was bladder scanned for 550ml; pt was straight cathed for 350ml; PVR 50ml Voiding Methods Bedside Commode Bedside Commode Data Completed and Pending Labs on day of discharge: Labs from last 24 hours 04/05/23 04/05/23 04/05/23 06:07 06:07 06:07 WBC 4.32 L RBC 3.52 L Hgb 10.6 L Hct 32.1 L MCV 91 MCH 30.1 MCHC 33.0 RDW 14.2 Plt Count 175 MPV 10.2 Immature Gran % 0.5 Neutrophils % 57.8 Lymphocytes % 29.9 Monocytes % 9.7 Eosinophils % 1.6 Basophils % 0.5 Nucleated RBC % 0.0 Absolute Neutrophils 2.50 Absolute Lymphocytes 1.29 Absolute Monocytes 0.42 Absolute Eosinophils 0.07 Absolute Basophils 0.02 PT INR APTT 38.9 H Sodium 138 Potassium 3.8 Chloride 106 Carbon Dioxide 22.3 Anion Gap 9.7 BUN 11 Creatinine 0.9 Est GFR (CKD-EPI 2020) 70.51 Glucose 93 Calcium 8.7 Magnesium 1.6 L Total Bilirubin AST ALT Alkaline Phosphatase Creatine Kinase Troponin I Total Protein Albumin Procalcitonin TSH Urine Color Urine Clarity Urine pH Ur Specific [place] Urine Protein Urine Ketones Urine Blood Urine Nitrite Urine Bilirubin Urine Urobilinogen Ur Leukocyte Esterase Urine RBC Urine WBC Ur Epithelial Cells Urine Crystals Urine Bacteria Urine Mucus Ur Culture Indicated? Urine Glucose B. divergens/MO-1 PCR Babesia duncani (PCR) Babesia microti DNA PCR Lyme Disease Antibody COVID-19 Source SARS-CoV-2 (PCR) E.chaffeensis DNA (PCR) E.ewingii/canis DNA PCR E.muris eauclairensis (PCR) Influenza Type A (PCR) Influenza Type B (PCR) RSV (PCR) A. phagocytophilum (PCR) Blood B. miyamotoi (PCR) Add-On Test Request 04/04/23 04/04/23 04/04/23 18:15 15:40 13:51 WBC RBC Hgb Hct MCV MCH MCHC RDW Plt Count MPV Immature Gran % Neutrophils % Lymphocytes % Monocytes % Eosinophils % Basophils % Nucleated RBC % Absolute Neutrophils Absolute Lymphocytes Absolute Monocytes Absolute Eosinophils Absolute Basophils PT INR APTT Sodium Potassium Chloride Carbon Dioxide Anion Gap BUN Creatinine Est GFR (CKD-EPI 2020) Glucose Calcium Magnesium Total Bilirubin AST ALT Alkaline Phosphatase Creatine Kinase Troponin I Total Protein Albumin Procalcitonin < 0.1 TSH Urine Color Yellow Urine Clarity Clear Urine pH 5.5 Ur Specific [place] 1.010 Urine Protein 30 H Urine Ketones 15 H Urine Blood Trace-intact H Urine Nitrite Negative Urine Bilirubin Negative Urine Urobilinogen 0.2 Ur Leukocyte Esterase Negative Urine RBC 0-2 Urine WBC 0-2 Ur Epithelial Cells Negative Urine Crystals Negative Urine Bacteria Negative Urine Mucus Negative Ur Culture Indicated? No Urine Glucose Negative B. divergens/MO-1 PCR Babesia duncani (PCR) Babesia microti DNA PCR Lyme Disease Antibody COVID-19 Source Nasopharynx SARS-CoV-2 (PCR) Negative E.chaffeensis DNA (PCR) E.ewingii/canis DNA PCR E.muris eauclairensis (PCR) Influenza Type A (PCR) Negative Influenza Type B (PCR) Negative RSV (PCR) Negative A. phagocytophilum (PCR) Blood B. miyamotoi (PCR) Add-On Test Request 04/04/23 04/04/23 04/04/23 13:51 13:15 13:15 WBC RBC Hgb Hct MCV MCH MCHC RDW Plt Count MPV Immature Gran % Neutrophils % Lymphocytes % Monocytes % Eosinophils % Basophils % Nucleated RBC % Absolute Neutrophils Absolute Lymphocytes Absolute Monocytes Absolute Eosinophils Absolute Basophils PT 26.5 H INR 2.6 H APTT Sodium Potassium Chloride Carbon Dioxide Anion Gap BUN Creatinine Est GFR (CKD-EPI 2020) Glucose Calcium Magnesium Total Bilirubin AST ALT Alkaline Phosphatase Creatine Kinase Troponin I Total Protein Albumin Procalcitonin TSH Urine Color Urine Clarity Urine pH Ur Specific [place] Urine Protein Urine Ketones Urine Blood Urine Nitrite Urine Bilirubin Urine Urobilinogen Ur Leukocyte Esterase Urine RBC Urine WBC Ur Epithelial Cells Urine Crystals Urine Bacteria Urine Mucus Ur Culture Indicated? Urine Glucose B. divergens/MO-1 PCR Pending Babesia duncani (PCR) Pending Babesia microti DNA PCR Pending Lyme Disease Antibody Negative COVID-19 Source SARS-CoV-2 (PCR) E.chaffeensis DNA (PCR) Pending E.ewingii/canis DNA PCR Pending E.muris eauclairensis (PCR) Pending Influenza Type A (PCR) Influenza Type B (PCR) RSV (PCR) A. phagocytophilum (PCR) Pending Blood B. miyamotoi (PCR) Pending Add-On Test Request Pending 04/04/23 13:15 WBC RBC Hgb Hct MCV MCH MCHC RDW Plt Count MPV Immature Gran % Neutrophils % Lymphocytes % Monocytes % Eosinophils % Basophils % Nucleated RBC % Absolute Neutrophils Absolute Lymphocytes Absolute Monocytes Absolute Eosinophils Absolute Basophils PT INR APTT Sodium 129 L Potassium 4.1 Chloride 93 L Carbon Dioxide 25.3 Anion Gap 10.7 BUN 15 Creatinine 0.9 Est GFR (CKD-EPI 2020) 70.51 Glucose 125 H Calcium 9.5 Magnesium Total Bilirubin 0.5 AST 35 ALT 37 Alkaline Phosphatase 142 H Creatine Kinase 51 Troponin I < 50 Total Protein 8.3 H Albumin 3.4 Procalcitonin TSH 1.17 Urine Color Urine Clarity Urine pH Ur Specific [place] Urine Protein Urine Ketones Urine Blood Urine Nitrite Urine Bilirubin Urine Urobilinogen Ur Leukocyte Esterase Urine RBC Urine WBC Ur Epithelial Cells Urine Crystals Urine Bacteria Urine Mucus Ur Culture Indicated? Urine Glucose B. divergens/MO-1 PCR Babesia duncani (PCR) Babesia microti DNA PCR Lyme Disease Antibody COVID-19 Source SARS-CoV-2 (PCR) E.chaffeensis DNA (PCR) E.ewingii/canis DNA PCR E.muris eauclairensis (PCR) Influenza Type A (PCR) Influenza Type B (PCR) RSV (PCR) A. phagocytophilum (PCR) Blood B. miyamotoi (PCR) Add-On Test Request 04/04/23 16:15 Blood Blood Culture - Pending 04/04/23 12:30 Blood Blood Culture - Pending Preliminary micro results at discharge 04/04/23 16:15 Blood Culture - Pending Blood 04/04/23 12:30 Blood Culture - Pending Blood [facility] All Active Problems (Updated 04/05/23 @ 15:15 by Laura Rocha NP) Hypomagnesemia (Acute) Myositis associated antibody positive (Acute) [facility] DVT prophylaxis (Acute) Discharge planning issues (Acute) Dehydration (Acute) Candidiasis of mouth (Acute) Hyponatremia (Acute) Generalized weakness (Acute) Gait abnormality (Acute) Anticoagulated on warfarin (Chronic) PE; INR goal 2-3 Bursitis of right shoulder (Chronic 07/04/16) Carpal tunnel syndrome of right wrist (Chronic 08/03/15) Celiac disease (Chronic 07/19/05) Diagnosed by skin biopsy, no h/o colonoscopy. Chronic pain syndrome (Chronic 05/23/13) Depressive disorder (Chronic) Dermatitis herpetiformis (Chronic 12/31/14) Diabetes (Chronic 12/01/13) Diabetic peripheral neuropathy (Chronic 08/03/15) OPTICAL EXPRESSIONS; 08/31/15; LEFT EYE Gastroesophageal reflux disease (Chronic) History of pulmonary embolus (PE) (Chronic 05/15/13) Hyperlipidemia (Chronic) Irritable bowel syndrome with diarrhea (Chronic 06/26/17) Low back pain (Chronic) Migraine (Chronic) Nocturnal leg cramps (Chronic 07/04/16) Obesity (Chronic) Peripheral vascular disease (Chronic 07/28/14) Stable RAFI 12/2022 at [facility] [facility] Smoker (Chronic) Spinal stenosis, lumbar region with neurogenic claudication (Chronic 08/17/15) 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) Venous insufficiency of both lower extremities (Chronic 08/03/15) Chronic pain in left foot (Chronic) Protein C deficiency (Chronic) Chronic cough (Chronic) Dyspnea on effort (Acute) Microcytic anemia (Acute) Pulmonary embolism (Acute) Plantar fasciitis (Acute) Foot pain (Acute) Elevation of level of transaminase and lactic acid dehydrogenase (LDH) (Acute) History of dysmenorrhea (Acute 07/19/95) Corns and callus (Acute) Carpal tunnel syndrome (Acute) Abnormal liver function (Acute) Corns (Chronic) Zoster (Acute) Epigastric pain (Acute) Fatigue (Acute) Chronic anticoagulation (Acute) Elevated blood pressure reading (Acute) Leg pain (Acute) Hoarseness of voice (Acute) Sore throat (Acute) Chronic anemia (Acute) Pt refuses colonoscopy. Feels related to Celiac Disease Abnormal LFTs (liver function tests) (Acute) Encounter for immunization (Acute) Gout (Chronic) Right foot pain (Acute) Chest pain (Acute) Mid back pain (Acute) Thoracic back pain (Acute) Edema of left foot (Acute) Left foot pain (Acute) Right arm pain (Acute) Other osteoporosis with current pathological fracture, left ankle and foot, sequela (Acute) Calcinosis cutis (Acute) Medical History (Updated 04/05/23 @ 15:15 by Laura Rocha NP) Diabetes mellitus DVT (deep venous thrombosis) GERD (gastroesophageal reflux disease) Nausea & vomiting Pulmonary embolism Surgical History (Updated 11/14/22 @ 09:24 by Kira Martinez RN) section History of angioplasty of peripheral vessel left iliac vein stent (10/01/2009) [facility] [place] [facility] diameter 18mm, length 60mm, lot [id number] History of carpal tunnel surgery of left wrist History of section Hx of cholecystectomy Family History Mother Personal history of malignant neoplasm BONE,THYROID,BACK,LIVER,BLADDER,BREAST Father Asthma Sister No problems noted. Brother No problems noted. Social History Smoking/Tobacco Use Status: Current every day Tobacco Type: cigarettes Smoking risk assessment performed?: Yes Alcohol Intake: never Drug use: Never Substance use type: does not use Household members: spouse Housing: house What type of physical activity do you participate in: none Do you feel safe at home: Yes Do you feel safe in your relationship?: Yes Time Spent with Patient Time Spent with Patient: 70-84 minutes4 Time was spent: preparing to see the patient(eg.review tests), ordering medications,tests, procedures, referring, communicating with other health healthcare recruiter, indepentently interpreting results, counseling the patient and care coordination
--- NOTE | 2023-04-05 14:55 | IN_ITS ---
PT Notes Visit Reasons: Hyponatremia Inpatient Physical Therapy Evaluation Date: 04/05/23 Referring Doctor: Laura Rocha NP PT Orders: PT CONSULT: safety consultation for discharge Precautions: standard Patient Profile/Admitting Diagnosis: Patient admitted on observation status a fter presenting to ED with weakness and diagnosed with hyponatremia. PT consult requested for evaluation of safety. Social History/Home Situation: Lives with in private home. States that she normally walks with FWW or pushing wheelchair due to left knee pain/weakness. She can walk for about an hour before her knee pain stops her. Equipment Owned/DME: FWW, wheelchair Subjective: Janna states that she is looking forward to going home. She struggles with walking due to left knee pain, which she states is her baseline. She is scheduled to resume PT next Sunday at [facility] in [place]. Objective: General Observation: Sitting at EOB getting dressed. No lines. Mental Status: A&Ox3 Pain: left knee ROM: Right Upper Extremity: WFL Left Upper Extremity: Lacking ER beyond neutral on the left. Flexion limited to 130* actively. Right Lower Extremity: Grossly WFL Left Lower Extremity: Grossly WFL. Strength: Right Upper Extremity: Shoulder flexion 4-/5. Biceps 4/5. Shoulder ER 4/5. Left Upper Extremity: Shoulder flexion 4-/5. Biceps 4/5. Shoulder ER 3-/5. Right Lower Extremity: Hip flexion 5/5. Quads 5/5. Ankle DF 5/5. Left Lower Extremity: Hip flexion 5/5. Quads 4/5. Ankle DF 4-/5. Bed Mobility/Transfers: sit-stand: independent stand-sit: independent Gait: Ambulates 75' with FWW, supervision only. Balance: Static Sitting: normal Dynamic Sitting: normal Static Standing: good Dynamic Standing: fair 4-Position Balance Test: 1/4 Small RADHA: 10 seconds Partial Tandem: 4 seconds Full Tandem: 3 seconds Single Leg Stance: 0 seconds Special Tests: Mobility Limitations Standardized Measure [facility] AM-PAC 6 clicks Basic Mobility Inpatient Short Form: Raw Score: 24 Standardized Score: 0% impairment Informed Consent/Education: Patient instructed in purpose of PT consult and plan of care. Treatment: Evaluation (33133) Therapeutic Exercises (64298b1): Discussed previous home programs, as patient has had extensive PT intervention in the past. She has questions about safe activity in the presence of osteoporosis. Advised resumption of standing exercises (hip PREs) with safe set up (walker in front, chair behind) while she awaits PT work up as an outpatient on Sunday. Also encouraged short bursts of frequent walking vs 1 long session, which increases her pain. Assessment: Patient is a 67 year old female referred to physical therapy services for safety consultation prior to discharge. Patient presents with chronic mobility impairments related to left knee pain, and is already set up to see outpatient PT next week. She demonstrates good safety and mobility, and is appropriate for discharge home once medically stable. She currently demonstrates the following impairment level findings: 1. Decreased LE strength 2. decreased LUE strength 3. decreased activity tolerance 4. decreased balance Impairments are contributing to the following functional limitations: 1. increased fall risk 2. chronic limitations in tolerance to walking Patient is assessed as a Low 06917 complexity based on the following: History: Sylvia is a 67 year old female presenting for safety consult during acute care stay for management of hyponatremia. She has chronic mobility impairments, and requires further PT on an outpatient basis. She is at her baseline mobility, and is safe for return home once medically stable. Examination: functional limitations as noted above Presentation: stable Decision Making: low complexity Plan of Care/Treatment Plan: One-time visit. No further PT required in acute care setting. DISCHARGE RECOMMENDATIONS: Home with outpatient PT (already scheduled for next week- referred by PCP) TREATMENT CODE/TIME: 66368 ( 2:35-3:00) María Diehl, PT, DPT [facility] All Active Problems (Updated 04/05/23 @ 14:22 by Renzo Castano NP) Myositis associated antibody positive (Acute) Per [facility] DVT prophylaxis (Acute) Discharge planning issues (Acute) Dehydration (Acute) Candidiasis of mouth (Acute) Hyponatremia (Acute) Generalized weakness (Acute) Gait abnormality (Acute) Anticoagulated on warfarin (Chronic) PE; INR goal 2-3 Bursitis of right shoulder (Chronic 07/04/16) Carpal tunnel syndrome of right wrist (Chronic 08/03/15) Celiac disease (Chronic 07/19/05) Diagnosed by skin biopsy, no h/o colonoscopy. Chronic pain syndrome (Chronic 05/23/13) Depressive disorder (Chronic) Dermatitis herpetiformis (Chronic 12/31/14) Diabetes (Chronic 12/01/13) Diabetic peripheral neuropathy (Chronic 08/03/15) OPTICAL EXPRESSIONS; 08/31/15; LEFT EYE Gastroesophageal reflux disease (Chronic) History of pulmonary embolus (PE) (Chronic 05/15/13) Hyperlipidemia (Chronic) Irritable bowel syndrome with diarrhea (Chronic 06/26/17) Low back pain (Chronic) Migraine (Chronic) Nocturnal leg cramps (Chronic 07/04/16) Obesity (Chronic) Peripheral vascular disease (Chronic 07/28/14) Stable RAFI 12/2022 at [facility] Smoker (Chronic) Spinal stenosis, lumbar region with neurogenic claudication (Chronic 08/17/15) 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) Venous insufficiency of both lower extremities (Chronic 08/03/15) Chronic pain in left foot (Chronic) Protein C deficiency (Chronic) Chronic cough (Chronic) Dyspnea on effort (Acute) Microcytic anemia (Acute) Pulmonary embolism (Acute) Plantar fasciitis (Acute) Foot pain (Acute) Elevation of level of transaminase and lactic acid dehydrogenase (LDH) (Acute) History of dysmenorrhea (Acute 07/19/95) Corns and callus (Acute) Carpal tunnel syndrome (Acute) Abnormal liver function (Acute) Corns (Chronic) Zoster (Acute) Epigastric pain (Acute) Fatigue (Acute) Chronic anticoagulation (Acute) Elevated blood pressure reading (Acute) Leg pain (Acute) Hoarseness of voice (Acute) Sore throat (Acute) Chronic anemia (Acute) Pt refuses colonoscopy. Feels related to Celiac Disease Abnormal LFTs (liver function tests) (Acute) Encounter for immunization (Acute) Gout (Chronic) Right foot pain (Acute) Chest pain (Acute) Mid back pain (Acute) Thoracic back pain (Acute) Edema of left foot (Acute) Left foot pain (Acute) Right arm pain (Acute) Other osteoporosis with current pathological fracture, left ankle and foot, sequela (Acute) Calcinosis cutis (Acute) Medical History (Updated 04/05/23 @ 14:22 by Renzo Castano NP) Diabetes mellitus DVT (deep venous thrombosis) GERD (gastroesophageal reflux disease) Nausea & vomiting Pulmonary embolism Surgical History (Updated 11/14/22 @ 09:24 by Kira Martinez RN) section History of angioplasty of peripheral vessel left iliac vein stent (10/01/2009) [facility] diameter 18mm, length 60mm, lot [id number] History of carpal tunnel surgery of left wrist History of section Hx of cholecystectomy
[2023-04-05 17:43] LABS: Lab Add On Test DONE
[2023-04-05 18:13] LABS: INR 2.4 (0.9-1.1); Prothrombin Time 24.1 sec (9.3-11.0)
[2023-04-06 22:48] LABS: Anaplasma phagocytophilum Negative (Negative); B. miyamotoi PCR Negative (Negative); Babesia divergens/MO-1 Negative (Negative); Babesia duncani Negative (Negative); Babesia microti Negative (Negative); Ehrlichia chaffeensis Negative (Negative); Ehrlichia ewingii/canis Negative (Negative); Ehrlichia muris eauclairensis Negative (Negative)
[2023-05-10 12:44] LABS: Lab Add On Test done
== END 2023-04-05 15:38 | disposition home or self-care (01) ==
LOC: ER 15:28 → MS 18:40
PROVIDERS: Nurse Practitioner Family; Admitting Provider Internal Medicine; Emergency Provider Emergency Medicine; PCP Nurse Practitioner Family; Visit Provider Internal Medicine
DX: E87.1 Hypo-osmolality and hyponatremia (principal); E83.42 Hypomagnesemia; B37.0 Candidal stomatitis; Z79.899 Other long term (current) drug therapy; Z79.01 Long term (current) use of anticoagulants; I73.9 Peripheral vascular disease, unspecified; I87.2 Venous insufficiency (chronic) (peripheral); R51.9 Headache, unspecified; Z79.84 Long term (current) use of oral hypoglycemic drugs; M79.662 Pain in left lower leg; L94.2 Calcinosis cutis; E86.0 Dehydration; R11.2 Nausea with vomiting, unspecified; R53.1 Weakness; Z79.891 Long term (current) use of opiate analgesic; M60.80 Other myositis, unspecified site; K90.0 Celiac disease; G89.4 Chronic pain syndrome; F32.A Depression, unspecified; E11.42 Type 2 diabetes mellitus with diabetic polyneuropathy; F17.210 Nicotine dependence, cigarettes, uncomplicated; D68.59 Other primary thrombophilia; D50.9 Iron deficiency anemia, unspecified
CPT/HCPCS: 36415; 80048; 80053; 82550; 84145; 87040; 87637; 87798; 93971; 96365; 96366; 96368; 96375; 97161; 99285; 70450; 73701; 81003; 81015; 83605; 83735; 84443; 84484; 85025; 85610; 85730; 86618; 99222; 99239; G0378; J0131; J2060; J3490

== ENCOUNTER 2023-04-05 21:57 | Emergency (ER) | payer OTHER, SELFPAY ==
[2023-04-05 22:03] VITALS: BP 160/87; PULSE 90; RESP 21; TEMP 36.8; O2SAT 98
--- NOTE | 2023-04-05 22:09 | W.ED.GENAD ---
Discharge Plan Disposition Patient Disposition: Home Condition: Good Discharge Details Clinical Impression: Rash, Headache Primary Care Provider: Renzo Castano ED Provider: Yvette Burgos Home Meds and New Rx's Prescriptions: No Action Elbow Sleeve 1 DAILY Qty: 1 0RF Rx Instructions: Dx: Left ulnar neuropathy gabapentin 600 mg tablet 600 mg PO TID Qty: 270 2RF omeprazole 40 mg capsule,delayed release(DR/EC) 40 mg PO HS Qty: 90 3RF dapsone 25 mg tablet 50 mg PO BID Qty: 240 3RF baclofen 10 mg tablet 20 mg PO HS Qty: 90 3RF (DME) blood sugar diagnostic Strip 1 ea Miscellaneous BID Qty: 200 5RF Rx Instructions: Twice a day testing (DME) lancets [[employer] Bio[employer]Touch Delica Lancets] 33 gauge misc See Rx Instructions .ROUTE DAILY Qty: 100 4RF Rx Instructions: One each daily metformin 1,000 mg tablet 1,000 mg PO BID Qty: 180 4RF hydrocodone-acetaminophen 10-325 mg tablet 1 tab PO Q6H MDD 4 tabs PRN (Reason: chronic pain) Qty: 112 0RF amitriptyline 25 mg Tablet 25 mg PO QHS ferrous gluconate 324 mg (37.5 mg iron) tablet 324 mg PO QMWF Eliquis 5 mg tablet 5 mg PO BID clotrimazole 10 mg emily 10 mg mucous membrane .5xd Qty: 30 1RF magnesium chloride 64 mg tablet,delayed release (DR/EC) 128 mg PO BID Qty: 120 0RF Discharge Instructions Instructions: Acute Rash (ED), General Headache (ED) Additional Instructions: You can take Benadryl for itching over the counter; follow the directions on the bottle. Take tylenol and ibuprofen over the counter as needed for headache; follow the directions on the bottle. Call your primary care doctor today to schedule an appointment for next week to follow up on your visit here. Return to the emergency department for new or worsening symptoms including fever, new/worse/different headache, numbness, focal weakness, vertigo, or if you have any other concerns. Referrals: Renzo Castano, [employer] [Primary Care Provider] - Medical Decision Making This is a 67 yo female who was seen here yesterday and admitted overnight and discharged home today with a diagnosis of hyponatremia and hypomagnesemia and dehydration. She returns today with complaints of a puritic rash after receiving IV magnesium. She is also complaining of visual hallucinations but does not drink alcohol and denies using illicit drugs. Visual hallucination are usually associated with exogenous causes and not mental health diagnoses such as schizophrenia. She may have a toxic ingestion or possibly a ICH in the visual cortex of her brain. She is on theraputic anticoagulation for previous thromboembolic disease. She is also complaining of a blistering rash which appears to me to be older than 24 hours since some have small areas which appear to have had blisters which appear to have popped and are healing. They are bilateral and do not coincide with a particular dermatome. I doubt that the rash is secondary to the IV magnesium she received yesterday. She may have recurrent hyponatremia. This could also be an atypical migraine, since she does have a history of migraine. She could have a vitreous bleed or retinal detachment, but the visual changes seem to come and go. My plan is to repeat her blood work and noncontrast head CT. We will check her electrolytes, CBC and urine tox. I will order diphenhydramine for the itching and IV acetaminophen for her headache. She did request a narcotic for her headache and the nursing staff report that she has a narcotic contract. I have told her that narcotics are not recommended for migraine, due to rebound headache as well as dependancy. Differential Diagnosis Differential Diagnosis: ICH, migraine, retinal detachment, vitreous hemorrhage, rash Medical Records Medical records reviewed: Yes I reviewed the patient's medical records. HPI General Date/Time Provider Initiated Documentation: 04/05/23 22:09. Limitations to Documentation: no limitations. Information obtained by: patient, family, RN notes reviewed and old records reviewed. HPI Narrative: Time seen was 222 in bed 4. Patient is a 67-year-old female who was admitted yesterday for hyponatremia and hypomagnesemia, will be discharged today and return with complaints of an itchy rash on her scalp and forearms. She is also complaining of a headache and visual disturbances. She began having the rash after receiving IV magnesium in-house but did not tell the provider. She noticed the rash on the face and on her scalp as well as her arms. She states they are itching but also painful and when she applies pressure she is able to express some clear liquid from some of the lesions. She denies any previous similar episodes. She denies any new medications. She is also complaining of red flashing lights while watching television and when lights are turned down it looks wallpaper on the [place] of her home. She describes these as orange mandel, red flashing lights and other oral patterns in different colors. She states she feels confused although her who is at the bedside has not noticed any confusion. She is also complaining of a headache which is not similar to her previous migraines. She does usually get visual auras associated with her migraines but they are not similar to the visual disturbance that she has presently. She denies any alcohol or drugs.. Her headache was gradual in onset and is located in the left retro-orbital region and the posterior. She denies any fever or stiff neck. She denies any unilateral numbness or tingling or weakness. She does ambulate with a cane. Her headache is 8 out of 10 in severity. She denies any photophobia or phonophobia. She has not taken any medications at home. She denies any throat or tongue. No change in voice. She denies any chest pain or abdominal pain, nausea or vomiting. She denies any other new medications, detergents or lotions. Related Data Home Medications Medication Instructions Recorded Confirmed gabapentin 600 mg tablet 600 mg PO TID #270 tabs 10/04/20 04/05/23 omeprazole 40 mg capsule,delayed 40 mg PO HS #90 caps 08/07/22 04/05/23 release dapsone 25 mg tablet 50 mg PO BID #240 tab-caps 08/31/22 04/05/23 baclofen 10 mg tablet 20 mg PO HS #90 tab-caps 09/13/22 04/05/23 blood sugar diagnostic #200 strips 12/18/22 04/05/23 lancets 33 gauge (OneTouch Delica #100 ea 12/18/22 04/05/23 Lancets) metformin 1,000 mg tablet 1,000 mg PO BID #180 tab-caps 03/19/23 04/05/23 hydrocodone 10 mg-acetaminophen 1 tab PO Q6H PRN chronic pain #112 04/02/23 04/05/23 325 mg tablet tabs amitriptyline 25 mg tablet 25 mg PO QHS 04/04/23 04/05/23 ferrous gluconate 324 mg (37.5 mg 324 mg PO QMWF 04/04/23 04/05/23 iron) tablet apixaban 5 mg tablet (Eliquis) 5 mg PO BID 04/05/23 04/05/23 clotrimazole 10 mg emily 10 mg mucous membrane .5xd #30 tabs 04/05/23 04/05/23 magnesium chloride 64 mg 128 mg PO BID #120 tabs 04/05/23 04/05/23 (magnesium chloride) tablet,delayed release Previous Rx's Medication Instructions Recorded gabapentin 600 mg tablet 600 mg PO TID #270 tabs 10/04/20 omeprazole 40 mg capsule,delayed 40 mg PO HS #90 caps 08/07/22 release dapsone 25 mg tablet 50 mg PO BID #240 tab-caps 08/31/22 baclofen 10 mg tablet 20 mg PO HS #90 tab-caps 09/13/22 blood sugar diagnostic #200 strips 12/18/22 lancets 33 gauge (OneTouch Delica #100 ea 12/18/22 Lancets) metformin 1,000 mg tablet 1,000 mg PO BID #180 tab-caps 03/19/23 hydrocodone 10 mg-acetaminophen 1 tab PO Q6H PRN chronic pain #112 04/02/23 325 mg tablet tabs clotrimazole 10 mg emily 10 mg mucous membrane .5xd #30 tabs 04/05/23 magnesium chloride 64 mg 128 mg PO BID #120 tabs 04/05/23 (magnesium chloride) tablet,delayed release Allergies Allergy/AdvReac Type Severity Reaction Status Date / Time rizatriptan benzoate Allergy Severe tongue Verified 04/04/23 13:16 [From Maxalt] swelling, diff.swallowing per pt azithromycin Allergy Intermediate SOB-pt Verified 04/04/23 13:16 reported sulfamethoxazole Allergy Intermediate Verified 04/04/23 13:16 trimethoprim [From Bactrim] Allergy Intermediate Verified 04/04/23 13:16 adhesive Allergy RASH Verified 04/04/23 13:16 wheat Allergy SKIN RASH Verified 04/04/23 13:16 sertraline AdvReac Intermediate sweating Verified 04/04/23 13:16 tramadol AdvReac Intermediate Nausea Verified 04/04/23 13:16 venlafaxine AdvReac Intermediate sweating,fa Verified 04/04/23 13:16 tigue,malai se amoxicillin AdvReac GI UPSET Verified 04/04/23 13:16 ondansetron [From Zofran] AdvReac can taste Verified 04/04/23 13:16 pill for days...per pt promethazine AdvReac jitters Verified 04/04/23 13:16 General Stated Complaint: GenMedical JOSE JUAN: 3 Review of Systems Narrative: see hpi Constitutional Constitutional: Denies fever(s) ENT Comments: She has a lesion in the inside of her left ear behind her left ear. Denies any change in hearing 18 or to the right PFSH All Active Problems Rash (Acute) Headache (Acute) Hypomagnesemia (Acute) Myositis associated antibody positive (Acute) Per [facility] Candidiasis of mouth (Acute) Generalized weakness (Acute) Gait abnormality (Acute) Bursitis of right shoulder (Chronic 07/04/16) Carpal tunnel syndrome of right wrist (Chronic 08/03/15) Celiac disease (Chronic 07/19/05) Diagnosed by skin biopsy, no h/o colonoscopy. Chronic pain syndrome (Chronic 05/23/13) Depressive disorder (Chronic) Dermatitis herpetiformis (Chronic 12/31/14) Diabetes (Chronic 12/01/13) Diabetic peripheral neuropathy (Chronic 08/03/15) OPTICAL EXPRESSIONS; 08/31/15; LEFT EYE Gastroesophageal reflux disease (Chronic) History of pulmonary embolus (PE) (Chronic 05/15/13) Hyperlipidemia (Chronic) Irritable bowel syndrome with diarrhea (Chronic 06/26/17) Low back pain (Chronic) Migraine (Chronic) Nocturnal leg cramps (Chronic 07/04/16) Obesity (Chronic) Peripheral vascular disease (Chronic 07/28/14) Stable RAFI 12/2022 at [facility] Smoker (Chronic) Spinal stenosis, lumbar region with neurogenic claudication (Chronic 08/17/15) 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) Venous insufficiency of both lower extremities (Chronic 08/03/15) Chronic pain in left foot (Chronic) Protein C deficiency (Chronic) Chronic cough (Chronic) Dyspnea on effort (Acute) Microcytic anemia (Acute) Pulmonary embolism (Acute) Plantar fasciitis (Acute) Foot pain (Acute) Elevation of level of transaminase and lactic acid dehydrogenase (LDH) (Acute) History of dysmenorrhea (Acute 07/19/95) Corns and callus (Acute) Carpal tunnel syndrome (Acute) Abnormal liver function (Acute) Corns (Chronic) Zoster (Acute) Epigastric pain (Acute) Fatigue (Acute) Chronic anticoagulation (Acute) Elevated blood pressure reading (Acute) Leg pain (Acute) Hoarseness of voice (Acute) Sore throat (Acute) Chronic anemia (Acute) Pt refuses colonoscopy. Feels related to Celiac Disease Abnormal LFTs (liver function tests) (Acute) Encounter for immunization (Acute) Gout (Chronic) Right foot pain (Acute) Chest pain (Acute) Mid back pain (Acute) Thoracic back pain (Acute) Edema of left foot (Acute) Left foot pain (Acute) Right arm pain (Acute) Other osteoporosis with current pathological fracture, left ankle and foot, sequela (Acute) Calcinosis cutis (Acute) Medical History Diabetes mellitus DVT (deep venous thrombosis) GERD (gastroesophageal reflux disease) Nausea & vomiting Pulmonary embolism Surgical History section History of angioplasty of peripheral vessel left iliac vein stent (10/01/2009) [facility] diameter 18mm, length 60mm, lot [id number] History of carpal tunnel surgery of left wrist History of section Hx of cholecystectomy Family History Mother Personal history of malignant neoplasm BONE,THYROID,BACK,LIVER,BLADDER,BREAST Father Asthma Sister No problems noted. Brother No problems noted. Social History Smoking/Tobacco Use Status: Current every day Tobacco Type: cigarettes Smoking risk assessment performed?: Yes Alcohol Intake: never Drug use: Never Substance use type: does not use Household members: spouse Housing: house What type of physical activity do you participate in: none Do you feel safe at home: Yes Do you feel safe in your relationship?: Yes Exam Narrative Exam Narrative: This is a is a well-nourished female in no acute distress. She is not clinically intoxicated and does not appear to be reacting to internal stimuli. She is mildly hypertensive, she is not tachycardic, tachypniec or febrile. Const General: cooperative, healthy appearing, comfortable, no acute distress, well developed, well groomed and well hydrated Nutritional Appearance: average body habitus and well nourished Orientation: alert, awake and oriented x3 HENMT Head: normocephalic, atraumatic, scalp lesion (There are several raised slightly erythematous lesions of scalp) and other (The lesions are 3mm raised and two of three have small scabs. No fluctuance) Ears: hearing grossly normal bilaterally and external ears normal General nose exam: external nose normal, nares normal and no nasal discharge Face and sinus: normal facial exam, sinuses nontender and face symmetric Mouth: oral mucosae normal, lip normal, tongue normal, oropharynx normal, moist mucous membranes and other (Normal phonation. The patient is handling secretions.) Throat: posterior oropharynx normal and uvula midline Eyes General: appearance normal, both eyes and all related structures Eyelids: eyelids normal Conjunctivae: conjunctivae normal Sclera: sclerae normal Cornea: corneas normal Pupils: PERRL EOM: EOM intact bilaterally and No nystagmus Direct ophthalmoscopy: photophobia not present Other: no phonophobia Neck Neck: normal visual inspection, full ROM, no lymphadenopathy, no meningeal signs, trachea midline, supple and No no JVD Lymphatic: no lymphadenopathy noted Chest Chest: normal inspection of the chest Resp Effort & Inspection: normal respiratory effort, able to speak in complete sentences, no audible wheezes, no nasal flaring, no respiratory distress, no retractions, no stridor, not tachypneic, no tracheal deviation, no use of accessory muscles, No prolonged expiratory phase and other (Normal inspiratory to expiratory ratio.) Auscultation: clear to auscultation bilaterally, no rales, no rhonchi, no wheezes and no rubs Tactile Fremitus: tactile fremitus absent Cardio Jugular venous pressure: no JVD Palpation: normal PMI Rate: regular rate Rhythm: regular rhythm Heart Sounds: S1 normal, S2 normal, no gallops, no murmurs and no rubs GI Inspection: normal to inspection and non-distended Palpation: soft, no hepatosplenomegaly, no guarding and nontender Percussion: normal to percussion Auscultation: normal bowel sounds General: No CVA tenderness Back/Spine/Pelvis Back: no CVA tenderness and No back tenderness Cervical Spine: normal cervical lordosis, cervical ROM normal, No cervical muscular tenderness, No pain with cervical ROM, No cervical spinal tenderness and No step off deformity Thoracic/Lumbar Spine: thoracic and lumbar spine normal to inspection, No thoracic spinal tenderness and No lumbar spinal tenderness Skin General skin exam: turgor normal, no petechiae, no purpura and other (Skin is normal for ethnicity.) Trauma: no lacerations or abrasions Other: There are several raised 2-4mm mildly erythemotous lesions of her scalp, forehead, left pinna, left post-auricular area, and forearms. She also has some areas on her forearms which are hypopigmented (although the patient denies vitaligo), underlying the lesions described above. No fluctuance, tenderness, induration or lymphangitis. Neuro General: patient alert, patient awake, patient oriented x3, moves all extremities, no meningeal signs, no focal motor deficits, CN's II-XI intact bilaterally and other (Stable gait when ambulating with her cane. ) Cranial Nerves: CN's II-XI intact bilaterally, PERRL, accommodation normal, EOM intact bilaterally, no nystagmus, facial strength normal, tongue midline, hearing normal and no nystagmus Cognition: normal cognition Speech: speech normal Gait: normal gait Motor: muscle tone normal throughout, strength 5/5 throughout, no fasciculations and no pronator drift noted Sensory Exam: no sensory deficits noted Coordination: [id number] test normal and Romberg test normal Other: Reflexes are 1-2+ and symmetric in her biceps, brachioradialis, patella and ankle jerks, no Babinsky is present. No pronator drift. Extrem General: normal to inspection, capillary refill normal, no clubbing, cyanosis or edema, no calf tenderness, no cyanosis and other (she has slight decrease in ROM of the right shoulder (chronic).) Psych Appearance: grossly normal Mental Status: mental status grossly normal Speech and Movement: speech and movement normal Mood: congruent mood Affect: irritable affect Attitude: cooperative and guarded Thought Process: normal Thought Content: normal Insight: insight good Judgment: judgment good Other: The patient appears to have capacity make medical decisions. Course Vital Signs Vital signs: Vital Signs Temperature 36.8 C 04/05/23 22:03 Pulse 90 04/05/23 22:03 Respiratory Rate 21 04/05/23 22:03 Blood Pressure 160/87 H 04/05/23 22:03 Pulse Oximetry 98 04/05/23 22:03 Temperature 36.8 C 04/05/23 22:03 Temperature Source Temporal Artery Scan 04/05/23 22:03 Pulse 90 04/05/23 22:03 Respiratory Rate 21 04/05/23 22:03 Blood Pressure 160/87 H 04/05/23 22:03 Blood Pressure Position Sitting 04/05/23 22:03 Pulse Oximetry 98 04/05/23 22:03 Oxygen Delivery Method Room Air 04/05/23 22:03 Oxygen Flow Rate 0 04/05/23 22:03 Pain Level 8 04/05/23 22:03 Sign Out Sign Out Data: Sign Out Comment: This is a 67-year-old female who was admitted yesterday and discharged today this facility for hyponatremia, hypomagnesemia and dehydration. She presents today with a diffuse macular no pruritic rash on her scalp face and arms that began prior to discharge and was preceded by IV magnesium. She is also visual changes seeing floral patterns and red flashing light flashing lights. She does not drink alcohol or partake drugs. Her neurologic exam is reassuring. Blood work and CT is pending. If her work-up is negative will likely discharged Last updated by Kanika Guy MD at 04/05/23 23:56
[2023-04-05 22:13] VITALS: RESP 21
--- NOTE | 2023-04-05 22:45 | DI.CT_ITS ---
Exam(s) CT HEAD WO EXAM: CT HEAD WO CLINICAL HISTORY: altered mental status. TECHNIQUE: Imaging Protocol: Axial computed tomography images with coronal and sagittal reformatted images were created and reviewed COMPARISON: CT CT HEAD WO from 04/04/2023 FINDINGS: There are no skull fractures. There is no fluid in the visualized paranasal sinuses. There is no evidence of intracranial hemorrhage, mass effect, or shift of midline structures. There are no extra-axial fluid collections. The ventricles are not enlarged or shifted and there is no blo od within the ventricular system nor within the basal cisterns. Vascular calcifications the skull base is noted in both internal carotid arteries as well as left oumar tebral artery. IMPRESSION: No acute intracranial findings on this noninfused CT scan of the brain. RADIATION DOSE DELIVERED: 677.23mGy.cm Total DLP DATA REPOSITORY: All CT scans at this facility are submitted to the National Radiology Data Registry (NRDR) Dose Index Registry (DIR) with the [employer] ([employer]). RADIATION OPTIMIZATION: All CT scans at this facility use at least one of these dose optimization te chniques: automated exposure control; mA and/or kV adjustment per patient size (includes targeted exa ms where dose is matched to clinical indication); or iterative reconstruction.
[2023-04-05 23:14] LABS: Abs Immature Grans 0.03 10^3/uL (0.0-0.06); Absolute Basophil Count 0.04 10^3/uL (0.0-0.2); Absolute Eosinophil Count 0.12 10^3/uL (0.0-0.7); Absolute Lymphocyte Count 1.66 10^3/uL (1.2-3.4); Absolute Monocyte Count 0.51 10^3/uL (0.1-0.8); Absolute Neutrophil Count 6.61 10^3/uL (1.2-6.7); Basophils % 0.4; Eosinophils % 1.3; HCT 35.2 % (36.0-46.0); HGB 11.4 g/dL (11.2-15.7); Immature Grans % 0.3; Lymphocytes % 18.5; MCH 29.8 pg (27.0-33.0); MCHC 32.4 % (32.0-36.0); MCV 92 fL (80-95); MPV 9.7 fL (8.0-11.0); Monocytes % 5.7; Neutrophils % 73.8; Platelet Count 213 10^3/uL (130-400); RBC 3.82 10^6/uL (3.93-5.22); RDW 14.4 % (11.7-14.6); WBC 8.97 10^3/uL (4.4-10.8)
[2023-04-05] MEDS: diphenhydrAMINE 50 MG/ML VIAL 12.5 MG IM/IV (23:16)
[2023-04-05] MEDS: ACETAMINOPHEN 1,000 MG/100 ML BTL 400 MG IVPB (23:17)
[2023-04-05 23:24] LABS: INR 1.6 (0.9-1.1); Prothrombin Time 15.9 sec (9.3-11.0)
[2023-04-05 23:29] LABS: ALT 37 U/L (14-59); AST 36 U/L (15-37); Albumin 3.5 g/dL (3.4-5.0); Alkaline Phosphatase 163 U/L (46-116); Anion Gap 12.5 mmol/L (3-11); BUN 11 mg/dL (7-18); Bilirubin, Total 0.3 mg/dL (0.2-1.0); CO2 22.5 mmol/L (21.0-32.0); Calcium 9.3 mg/dL (8.5-10.1); Chloride 106 mmol/L (98-107); Estimated GFR 62.13 (mL/min/1.73m2); Glucose 107 mg/dL (74-106); Potassium 3.6 mmol/L (3.5-5.1); Sodium 141 mmol/L (136-145); Total Protein 8.3 g/dL (6.4-8.2)
[2023-04-05 23:39] LABS: TSH (W/Ref FT4) 2.78 uIU/mL (0.36-3.74)
--- NOTE | 2023-04-05 23:49 | W.EDPROG ---
Date of service: 04/05/23 Time of Service: 23:49 Medical Decision Making This patient was signed out me. Please see previous notes for H&P and initial eval. In brief, 67yo F with recent admission for hyponatremia presenting with multiple symptoms including pruritic rash, headache, and visual disturbances. Does have a history of migraines but this headache is atypically for her. Labs reassuring, given benadyrl and tylenol for symptoms. Pending head CT and reassessment. Head CT independently reviewed, no bleed or infarct on my view, agree with radiology read below. On reassessment she reports headache somewhat improved but still present. Presenstion not consistent with SAH or CVA. She is well appearing, in no distress, with reassuring vital signs, rash is mild with no progression, no longer itchy after the Benadryl. She does take oxycodone at home 10mg for headache on occasion, requesting this here which is reasonable. Unclear etiology of various symptoms but with reassuring workup appropriate for discharge home. She already has a primary care appointment scheduled for today and was advised to keep this appointment. Discharged home; discharge instructions including return precautions were reviewed with patient who verbalized understanding. All questions were answered and they are in full agreement with the plan. Imaging Data Radiologic Study: Imaging: CT Scan Radiologist's impression: IMPRESSION: No acute intracranial abnormality. Lab Data Lab results reviewed: Yes I reviewed the patient's lab results. Labs: Laboratory Tests Range/Units 04/05/23 04/05/23 04/05/23 23:08 23:08 23:08 WBC (4.4-10.8) 10^3/uL RBC (3.93-5.22) 10^6/uL Hgb (11.2-15.7) g/dL Hct (36.0-46.0) % MCV (80-95) fL MCH (27.0-33.0) pg MCHC (32.0-36.0) % RDW (11.7-14.6) % Plt Count (130-400) 10^3/uL MPV (8.0-11.0) fL Immature Gran % Neutrophils % Lymphocytes % Monocytes % Eosinophils % Basophils % Nucleated RBC % (0.0-0.3) % Absolute Neutrophils (1.2-6.7) 10^3/uL Absolute Lymphocytes (1.2-3.4) 10^3/uL Absolute Monocytes (0.1-0.8) 10^3/uL Absolute Eosinophils (0.0-0.7) 10^3/uL Absolute Basophils (0.0-0.2) 10^3/uL PT (9.3-11.0) sec 15.9 H INR (0.9-1.1) 1.6 H Sodium (136-145) mmol/L 141 Potassium (3.5-5.1) mmol/L 3.6 Chloride (98-107) mmol/L 106 Carbon Dioxide (21.0-32.0) mmol/L 22.5 Anion Gap (3-11) mmol/L 12.5 H BUN (7-18) mg/dL 11 Creatinine (0.55-1.02) mg/dL 1.0 Est GFR (CKD-EPI 2020) (mL/min/1.73m2) 62.13 Glucose (74-106) mg/dL 107 H Calcium (8.5-10.1) mg/dL 9.3 Magnesium (1.8-2.4) mg/dL 2.0 Total Bilirubin (0.2-1.0) mg/dL 0.3 AST (15-37) U/L 36 ALT (14-59) U/L 37 Alkaline Phosphatase (46-116) U/L 163 H Total Protein (6.4-8.2) g/dL 8.3 H Albumin (3.4-5.0) g/dL 3.5 TSH (0.36-3.74) uIU/mL 2.78 Range/Units 04/05/23 23:08 WBC (4.4-10.8) 10^3/uL 8.97 RBC (3.93-5.22) 10^6/uL 3.82 L Hgb (11.2-15.7) g/dL 11.4 Hct (36.0-46.0) % 35.2 L MCV (80-95) fL 92 MCH (27.0-33.0) pg 29.8 MCHC (32.0-36.0) % 32.4 RDW (11.7-14.6) % 14.4 Plt Count (130-400) 10^3/uL 213 MPV (8.0-11.0) fL 9.7 Immature Gran % 0.3 Neutrophils % 73.8 Lymphocytes % 18.5 Monocytes % 5.7 Eosinophils % 1.3 Basophils % 0.4 Nucleated RBC % (0.0-0.3) % 0.0 Absolute Neutrophils (1.2-6.7) 10^3/uL 6.61 Absolute Lymphocytes (1.2-3.4) 10^3/uL 1.66 Absolute Monocytes (0.1-0.8) 10^3/uL 0.51 Absolute Eosinophils (0.0-0.7) 10^3/uL 0.12 Absolute Basophils (0.0-0.2) 10^3/uL 0.04 PT (9.3-11.0) sec INR (0.9-1.1) Sodium (136-145) mmol/L Potassium (3.5-5.1) mmol/L Chloride (98-107) mmol/L Carbon Dioxide (21.0-32.0) mmol/L Anion Gap (3-11) mmol/L BUN (7-18) mg/dL Creatinine (0.55-1.02) mg/dL Est GFR (CKD-EPI 2020) (mL/min/1.73m2) Glucose (74-106) mg/dL Calcium (8.5-10.1) mg/dL Magnesium (1.8-2.4) mg/dL Total Bilirubin (0.2-1.0) mg/dL AST (15-37) U/L ALT (14-59) U/L Alkaline Phosphatase (46-116) U/L Total Protein (6.4-8.2) g/dL Albumin (3.4-5.0) g/dL TSH (0.36-3.74) uIU/mL Sign Out Sign Out Data: Sign Out Comment: This is a 67-year-old female who was admitted yesterday and discharged today this facility for hyponatremia, hypomagnesemia and dehydration. She presents today with a diffuse macular no pruritic rash on her scalp face and arms that began prior to discharge and was preceded by IV magnesium. She is also visual changes seeing floral patterns and red flashing light flashing lights. She does not drink alcohol or partake drugs. Her neurologic exam is reassuring. Blood work and CT is pending. If her work-up is negative will likely discharged Last updated by Kanika Guy MD at 04/05/23 23:56 Discharge Plan Disposition Patient Disposition: Home Condition: Good Discharge Details Clinical Impression: Rash, Headache Primary Care Provider: Renzo Castano ED Provider: Yvette Burgos Home Meds and New Rx's Prescriptions: No Action Elbow Sleeve 1 DAILY Qty: 1 0RF Rx Instructions: Dx: Left ulnar neuropathy gabapentin 600 mg tablet 600 mg PO TID Qty: 270 2RF omeprazole 40 mg capsule,delayed release(DR/EC) 40 mg PO HS Qty: 90 3RF dapsone 25 mg tablet 50 mg PO BID Qty: 240 3RF baclofen 10 mg tablet 20 mg PO HS Qty: 90 3RF (DME) blood sugar diagnostic Strip 1 ea Miscellaneous BID Qty: 200 5RF Rx Instructions: Twice a day testing (DME) lancets [OneTouch Delica Lancets] 33 gauge misc See Rx Instructions .ROUTE DAILY Qty: 100 4RF Rx Instructions: One each daily metformin 1,000 mg tablet 1,000 mg PO BID Qty: 180 4RF hydrocodone-acetaminophen 10-325 mg tablet 1 tab PO Q6H MDD 4 tabs PRN (Reason: chronic pain) Qty: 112 0RF amitriptyline 25 mg Tablet 25 mg PO QHS ferrous gluconate 324 mg (37.5 mg iron) tablet 324 mg PO QMWF Eliquis 5 mg tablet 5 mg PO BID clotrimazole 10 mg emily 10 mg mucous membrane .5xd Qty: 30 1RF magnesium chloride 64 mg tablet,delayed release (DR/EC) 128 mg PO BID Qty: 120 0RF Discharge Instructions Instructions: Acute Rash (ED), General Headache (ED) Additional Instructions: You can take Benadryl for itching over the counter; follow the directions on the bottle. Take tylenol and ibuprofen over the counter as needed for headache; follow the directions on the bottle. Call your primary care doctor today to schedule an appointment for next week to follow up on your visit here. Return to the emergency department for new or worsening symptoms including fever, new/worse/different headache, numbness, focal weakness, vertigo, or if you have any other concerns. Referrals: Renzo Castano NP [Primary Care Provider] -
--- NOTE | 2023-04-06 | DI.VRAD_ITS ---
PROCEDURE INFORMATION: Exam: CT Head Without Contrast Exam date and time: 04/05/2023 11:51 PM Age: 67 years old Clinical indication: Altered mental status/memory loss; Confusion or disorientation; Patient HX: AMS, PT states hallucinating and sees things when eyes are closed TECHNIQUE: Imaging protocol: Computed tomography of the head without contrast. Radiation optimization: All CT scans at this facility use at least one of these dose optimization techniques: automated exposure control; mA and/or kV adjustment per patient size (includes targeted exams where dose is matched to clinical indication); or iterative reconstruction. COMPARISON: CT HEAD WO 04/04/2023 2:35 PM FINDINGS: Brain: Mild volume loss No hemorrhage. Mild white matter disease. No mass effect. Cerebral ventricles: No ventriculomegaly. Paranasal sinuses: Visualized sinuses are unremarkable. No fluid levels. Mastoid air cells: Visualized mastoid air cells are well aerated. Bones/joints: Unremarkable. No acute fracture. Soft tissues: Unremarkable. IMPRESSION: No acute intracranial abnormality. Dictated and Authenticated by: Checo Miller MD. Ordering:JENNIFER Boudreaux MD
[2023-04-06 00:16] VITALS: BP 143/62; PULSE 77; RESP 18; TEMP 36.4; O2SAT 98
[2023-04-06] MEDS: oxyCODONE 10 MG TAB PO (00:18)
== END 2023-04-06 00:23 | disposition home or self-care (01) ==
PROVIDERS: Emergency Medicine Emergency Medical Services; Emergency Provider Student in an Organized Health Care Education/Training Program; PCP Nurse Practitioner Family
DX: R51.9 Headache, unspecified (principal); R21 Rash and other nonspecific skin eruption; R41.82 Altered mental status, unspecified
CPT/HCPCS: 80053; 80307; 96365; 96372; 99284; 70450; 81003; 83735; 84443; 85025; 85610; J0131; J1200

== ENCOUNTER → 2023-04-18 08:23 | Outpatient (BNVA) | payer OTHER, MEDICAID, SELFPAY | PROVIDERS: PCP Nurse Practitioner Family; Referring Provider Nurse Practitioner Family; Visit Provider Surgery | DX: Z12.11 Encounter for screening for malignant neoplasm of colon (principal); Z80.0 Family history of malignant neoplasm of digestive organs ==

== ENCOUNTER 2023-05-12 02:57 | Outpatient (CLI) | payer OTHER, SELFPAY ==
[2023-05-12 11:50] LABS: Prothrombin Time 43.9 sec (9.3-11.0)
[2023-05-12 11:57] LABS: INR 4.4 (0.9-1.1)
== END 2023-05-12 02:58 | disposition home or self-care (01) ==
LOC: LBO 02:58
PROVIDERS: PCP Nurse Practitioner Family; Visit Provider Nurse Practitioner Family
DX: I26.99 Other pulmonary embolism without acute cor pulmonale (principal); Z79.01 Long term (current) use of anticoagulants; K90.0 Celiac disease
CPT/HCPCS: 36415; 85610

== ENCOUNTER 2023-05-20 06:57 | Emergency (ER) | payer OTHER, MEDICAID, SELFPAY ==
[2023-05-20 07:01] VITALS: BP 139/63; PULSE 112; RESP 20; TEMP 36.8; O2SAT 95
--- NOTE | 2023-05-20 07:24 | ED.GENADUL_ITS ---
Discharge Plan Disposition Patient Disposition: Home Discharge Details Clinical Impression: Urticarial rash Primary Care Provider: Renzo Castano ED Provider: Jerman Hdz [place] Meds and New Rx's Prescriptions: New cetirizine 5 mg tablet 5 mg PO DAILY PRNQty: 7 0RF Continued calcium carbonate [Calcium 600] 600 mg calcium (1,500 mg) tablet 600 mg PO BID polyethylene glycol 3350 17 gram/dose powder 238 g PO ONCE Qty: 238 0RF Rx Instructions: take per colonoscopy instructions bisacodyl [Dulcolax (bisacodyl)] 5 mg tablet,delayed release (DR/EC) 5 mg PO ONCE Qty: 4 0RF Rx Instructions: take per colonoscopy instructions prednisone 5 mg tablet 5 mg PO DIRECTED Qty: 49 0RF Rx Instructions: 40 mg x 2 days, 30 mg x 2 days, 20 mg x 2 days, 15 mg x 2 days, 10 mg x 2 days, 5 mg x 2 days, 2.5 mg x 2 days, then stop. nystatin 100,000 unit/mL suspension 100,000 unit PO QID 14 Days Qty: 60 0RF Eliquis 5 mg tablet 5 mg PO BID Qty: 6 1RF warfarin 5 mg tablet 5 mg PO QPM Qty: 90 3RF Protocol: Dose Management Condition: Sunday Dose/Route: 5 mg Instruction: 1 x 5 mg tablet Condition: Sunday Dose/Route: 5 mg Instruction: 1 x 5 mg tablet Condition: Sunday Dose/Route: 5 mg Instruction: 1 x 5 mg tablet Condition: Sunday Dose/Route: 5 mg Instruction: 1 x 5 mg tablet Condition: Dose/Route: 5 mg Instruction: 1 x 5 mg tablet Condition: Sunday Dose/Route: 5 mg Instruction: 1 x 5 mg tablet Condition: Sunday Dose/Route: 5 mg Instruction: 1 x 5 mg tablet Protocol Text: Adjustment Start Date: Sunday05/18/23 INR Value: 2.5 INR Date: 05/18/23 Recheck Date: 05/25/23 pregabalin 50 mg capsule 50 mg PO TID Qty: 90 2RF Elbow Sleeve 1 DAILY Qty: 1 0RF Rx Instructions: Dx: Left ulnar neuropathy gabapentin 600 mg tablet 600 mg PO TID Qty: 270 2RF Hold Instructions: Trying Lyrica omeprazole 40 mg capsule,delayed release(DR/EC) 40 mg PO HS Qty: 90 3RF dapsone 25 mg tablet 50 mg PO BID Qty: 240 3RF baclofen 10 mg tablet 20 mg PO HS Qty: 90 3RF (DME) blood sugar diagnostic Strip 1 ea Miscellaneous BID Qty: 200 5RF Rx Instructions: Twice a day testing (DME) lancets [OneTouch Delica Lancets] 33 gauge misc See Rx Instructions .ROUTE DAILY Qty: 100 4RF Rx Instructions: One each daily metformin 1,000 mg tablet 1,000 mg PO BID Qty: 180 4RF ciclopirox 0.77 % suspension 1 applic topical DAILY 42 Days Qty: 60 2RF hydrocodone-acetaminophen 10-325 mg tablet 1 tab PO Q6H MDD 4 tabs PRN (Reason: chronic pain) Qty: 112 0RF amitriptyline 25 mg Tablet 25 mg PO QHS ferrous gluconate 324 mg (37.5 mg iron) tablet 324 mg PO QMWF clotrimazole 10 mg emily 10 mg mucous membrane .5xd Qty: 30 1RF magnesium chloride 64 mg tablet,delayed release (DR/EC) 128 mg PO BID Qty: 120 0RF Discharge Instructions Instructions: Urticaria (ED) Additional Instructions: You were seen in the emergency department for your rash. Based on the timing of your rash it is not likely to be the result of your contrast. As we discussed, if you develop difficulty breathing shortness of breath or any fevers please return to the emergency department. Otherwise please take this medicine you have been prescribed as needed for itching. You received a dose of steroids which should decrease your rash on the next several hours. HPI General Date/Time Provider Initiated Documentation: 05/20/23 07:24 . HPI Narrative: HPI This is a 67-year-old female arriving to the emergency department in the setting of a rash. Patient notes that 3 days ago she received both IV and oral contrast for a CAT scan related to concern over possible malignancy. She reports that she was nauseous and vomiting 2 days ago. Last night she developed a rash to her bilateral legs and her arms. She does not feel short of breath. She reports that she noticed a rash on her face. She has not had any difficulty breathing. She does report history of celiac's disease but notes that this rash is different than prior rashes she has had with celiac disease. She has had no fevers chest pain. She did start Lyrica reportedly 3 weeks ago. She is taken no recent falls. She has not vomited today. She has taken her home opiate this morning. Exam General: Well-appearing in no acute distress speaking in complete sentences. Head: Normocephalic, atraumatic. Eye: Extraocular eye movements intact. No conjunctival injection. No scleral icterus. Ear, nose, mouth, throat: Grossly normal inspection. Normal voice, handling secretions normally. No mucosal involvement of rash. No oropharynx erythema nor swelling. Neck: Trachea midline. Cardiovascular: Well-perfused distal extremities. Regular rate and rhythm. Respiratory: Nonlabored respiration. Clear lungs bilaterally. Gastrointestinal: Nondistended abdomen. Musculoskeletal: No edema. Moving all 4 extremities spontaneously. Skin: In a widespread distribution over the patient's right thigh right arm and left thigh and left arm and her back there are numerous confluent smooth erythematous blanching plaques Neurologic: Alert and appropriate, no apparent acute deficits. Psychiatric: Mood and manner are appropriate. Grooming and personal hygiene are appropriate. MDM This is an overall well-appearing 67-year-old tachycardic but normothermic female with diffuse urticarial rash not concerning for anaphylaxis based on no airway breathing nor circulatory changes. Given the timing of her rash 3 days after her IV and oral contrast my suspicion is low that this represents a contrast allergy. I advised her that IV contrast allergy was inserted simplifications in terms of limiting downstream testing. I also explained that generally IV contrast allergies with the results of immediate effects. I did advise that when she receives IV contrast in the future that she monitor her symptoms to ensure that she did not develop type I hypersensitivity reaction. She had no exposure to ursodiol to low suspicion for allergic contact dermatitis. She could have a hypersensitivity reaction such as erythema multiforme. Nontoxic-appearing and no bullae nor mucosal involvement in the mouth so my suspicion is low for Church-Thomas's and SJS. No recent new medications nor fevers to suggest dress syndrome. No vesicles nor dermatomal distribution to suggest zoster. No pain out of proportion to suggest necrotizing soft tissue infection. 8:01 AM Patient's heart rate normalized in the ED. She received dexamethasone and cetirizine. We will proceed with empiric trial of expectant outpatient management. 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, peripheral arterial disease diabetes History obtained from an outside historian: Patient's daughter [place] [facility] [place] Medications: Cetirizine & dexamethasone Social determinants of health affecting disposition: N/A Management discussed with: N/A Treatment/interventions considered: N/A Response to therapies provided: N/A Related Data Home Medications Medication Instructions Recorded Confirmed gabapentin 600 mg tablet 600 mg PO TID #270 tabs 10/04/20 05/18/23 omeprazole 40 mg capsule,delayed 40 mg PO HS #90 caps 08/07/22 05/18/23 release dapsone 25 mg tablet 50 mg PO BID #240 tab-caps 08/31/22 05/18/23 baclofen 10 mg tablet 20 mg PO HS #90 tab-caps 09/13/22 05/18/23 blood sugar diagnostic #200 strips 12/18/22 05/18/23 lancets 33 gauge (OneTouch Delica #100 ea 12/18/22 05/18/23 Lancets) metformin 1,000 mg tablet 1,000 mg PO BID #180 tab-caps 03/19/23 05/18/23 amitriptyline 25 mg tablet 25 mg PO QHS 04/04/23 05/18/23 ferrous gluconate 324 mg (37.5 mg 324 mg PO QMWF 04/04/23 05/18/23 iron) tablet clotrimazole 10 mg emily 10 mg mucous membrane .5xd #30 tabs 04/05/23 05/18/23 magnesium chloride 64 mg 128 mg PO BID #120 tabs 04/05/23 05/18/23 (magnesium chloride) tablet,delayed release ciclopirox 0.77 % topical 1 applic topical DAILY 6 weeks #60 04/11/23 05/18/23 suspension mL bisacodyl 5 mg tablet,delayed 5 mg PO ONCE colonscopy bowel prep 04/18/23 05/18/23 release (Dulcolax (bisacodyl)) #4 tabs calcium carbonate 600 mg calcium 600 mg PO BID 04/18/23 05/18/23 (1,500 mg) tablet (Calcium) polyethylene glycol 3350 17 238 g PO ONCE colonoscopy prep 04/18/23 05/18/23 gram/dose oral powder #238 grams hydrocodone 10 mg-acetaminophen 1 tab PO Q6H PRN chronic pain #112 04/30/23 05/18/23 325 mg tablet tabs prednisone 5 mg tablet 5 mg PO DIRECTED #49 tabs 05/08/23 05/18/23 pregabalin 50 mg capsule 50 mg PO TID #90 caps 05/09/23 05/18/23 warfarin 5 mg tablet 5 mg PO QPM #90 tabs 05/09/23 05/18/23 apixaban 5 mg tablet (Eliquis) 5 mg PO BID #6 tabs 05/10/23 05/18/23 nystatin 100,000 unit/mL oral 100,000 unit PO QID 14 days #60 mL 05/10/23 05/18/23 suspension cetirizine 5 mg tablet 5 mg PO DAILY PRN #7 tabs 05/20/23 Previous Rx's Medication Instructions Recorded gabapentin 600 mg tablet 600 mg PO TID #270 tabs 10/04/20 omeprazole 40 mg capsule,delayed 40 mg PO HS #90 caps 08/07/22 release dapsone 25 mg tablet 50 mg PO BID #240 tab-caps 08/31/22 baclofen 10 mg tablet 20 mg PO HS #90 tab-caps 09/13/22 blood sugar diagnostic #200 strips 12/18/22 lancets 33 gauge (OneTouch Delica #100 ea 12/18/22 Lancets) metformin 1,000 mg tablet 1,000 mg PO BID #180 tab-caps 03/19/23 clotrimazole 10 mg emily 10 mg mucous membrane .5xd #30 tabs 04/05/23 magnesium chloride 64 mg 128 mg PO BID #120 tabs 04/05/23 (magnesium chloride) tablet,delayed release ciclopirox 0.77 % topical 1 applic topical DAILY 6 weeks #60 04/11/23 suspension mL bisacodyl 5 mg tablet,delayed 5 mg PO ONCE colonscopy bowel prep 04/18/23 release (Dulcolax (bisacodyl)) #4 tabs polyethylene glycol 3350 17 238 g PO ONCE colonoscopy prep 04/18/23 gram/dose oral powder #238 grams hydrocodone 10 mg-acetaminophen 1 tab PO Q6H PRN chronic pain #112 04/30/23 325 mg tablet tabs prednisone 5 mg tablet 5 mg PO DIRECTED #49 tabs 05/08/23 pregabalin 50 mg capsule 50 mg PO TID #90 caps 05/09/23 warfarin 5 mg tablet 5 mg PO QPM #90 tabs 05/09/23 apixaban 5 mg tablet (Eliquis) 5 mg PO BID #6 tabs 05/10/23 nystatin 100,000 unit/mL oral 100,000 unit PO QID 14 days #60 mL 05/10/23 suspension cetirizine 5 mg tablet 5 mg PO DAILY PRN #7 tabs 05/20/23 Allergies Allergy/AdvReac Type Severity Reaction Status Date / Time rizatriptan benzoate Allergy Severe tongue Verified 05/18/23 09:02 [From Maxalt] swelling, diff.swallowing per pt azithromycin Allergy Intermediate SOB-pt Verified 05/18/23 09:02 reported sulfamethoxazole Allergy Intermediate Verified 05/18/23 09:02 trimethoprim [From Bactrim] Allergy Intermediate Verified 05/18/23 09:02 adhesive Allergy RASH Verified 05/18/23 09:02 wheat Allergy SKIN RASH Verified 05/18/23 09:02 sertraline AdvReac Intermediate sweating Verified 05/18/23 09:02 tramadol AdvReac Intermediate Nausea Verified 05/18/23 09:02 venlafaxine AdvReac Intermediate sweating,fa Verified 05/18/23 09:02 tigue,malai se amoxicillin AdvReac GI UPSET Verified 05/18/23 09:02 ondansetron [From Zofran] AdvReac can taste Verified 05/18/23 09:02 pill for days...per pt promethazine AdvReac jitters Verified 05/18/23 09:02 General Stated Complaint: Allergic JOSE JUAN: 3 PFSH All Active Problems (Updated 05/20/23 @ 07:46 by Jerman Hdz MD) Urticarial rash (Acute) Left hand pain (Acute) Seborrheic dermatitis (Acute) Hypomagnesemia (Acute) Myositis associated antibody positive (Acute) Per [facility] Candidiasis of mouth (Acute) Generalized weakness (Acute) Gait abnormality (Acute) Bursitis of right shoulder (Chronic 07/04/16) Carpal tunnel syndrome of right wrist (Chronic 08/03/15) Celiac disease (Chronic 07/19/05) Diagnosed by skin biopsy, no h/o colonoscopy. Chronic pain syndrome (Chronic 05/23/13) Depressive disorder (Chronic) Dermatitis herpetiformis (Chronic 12/31/14) Diabetes (Chronic 12/01/13) Diabetic peripheral neuropathy (Chronic 08/03/15) OPTICAL EXPRESSIONS; 08/31/15; LEFT EYE Gastroesophageal reflux disease (Chronic) History of pulmonary embolus (PE) (Chronic 05/15/13) Hyperlipidemia (Chronic) Irritable bowel syndrome with diarrhea (Chronic 06/26/17) Low back pain (Chronic) Migraine (Chronic) Nocturnal leg cramps (Chronic 07/04/16) Obesity (Chronic) Peripheral vascular disease (Chronic 07/28/14) [place] [facility] [place]oker (Chronic) Spinal stenosis, lumbar region with neurogenic claudication (Chronic 08/17/15) 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) Venous insufficiency of both lower extremities (Chronic 08/03/15) Chronic pain in left foot (Chronic) Protein C deficiency (Chronic) Chronic cough (Chronic) Dyspnea on effort (Acute) Microcytic anemia (Acute) Pulmonary embolism (Acute) Plantar fasciitis (Acute) Foot pain (Acute) Elevation of level of transaminase and lactic acid dehydrogenase (LDH) (Acute) History of dysmenorrhea (Acute 07/19/95) Corns and callus (Acute) Carpal tunnel syndrome (Acute) Abnormal liver function (Acute) Corns (Chronic) Zoster (Acute) Epigastric pain (Acute) Fatigue (Acute) Chronic anticoagulation (Acute) Elevated blood pressure reading (Acute) Leg pain (Acute) Hoarseness of voice (Acute) Sore throat (Acute) Chronic anemia (Acute) Pt refuses colonoscopy. Feels related to Celiac Disease Abnormal LFTs (liver function tests) (Acute) Encounter for immunization (Acute) Gout (Chronic) Right foot pain (Acute) Chest pain (Acute) Mid back pain (Acute) Thoracic back pain (Acute) Edema of left foot (Acute) Left foot pain (Acute) Right arm pain (Acute) Other osteoporosis with current pathological fracture, left ankle and foot, sequela (Acute) Calcinosis cutis (Acute) Medical History Diabetes mellitus DVT (deep venous thrombosis) GERD (gastroesophageal reflux disease) Nausea & vomiting Pulmonary embolism Surgical History section History of [place]oplasty of peripheral vessel left [place]ac [place] [facility] [place] 18[place], [place] 60mm, lot [id number] History of carpal tunnel surgery of left wrist History of section Hx of cholecystectomy Family History Mother Personal history of malignant neoplasm BONE,THYROID,BACK,LIVER,BLADDER,BREAST Father Asthma Sister No problems noted. Brother No problems noted. Social History Smoking/Tobacco Use Status: Current every day Tobacco Type: cigarettes Smoking risk assessment performed?: Yes Alcohol Intake: never Drug use: Never Substance use type: does not use Household members: spouse Housing: house What type of physical activity do you participate in: none Do you feel safe at home: Yes Do you feel safe in your relationship?: Yes Course Vital Signs Vital signs: Vital Signs Temperature 36.8 C 05/20/23 07:01 Pulse 112 H 05/20/23 07:01 Respiratory Rate 20 05/20/23 07:01 Blood Pressure 139/63 05/20/23 07:01 Pulse Oximetry 95 05/20/23 07:01 Temperature 36.8 C 05/20/23 07:01 Temperature Source Oral 05/20/23 07:01 Pulse 112 H 05/20/23 07:01 Respiratory Rate 20 05/20/23 07:01 Respiratory Effort Normal 05/20/23 07:11 Respiratory Pattern Normal 05/20/23 07:11 Blood Pressure 139/63 05/20/23 07:01 Pulse Oximetry 95 05/20/23 07:01 Oxygen Delivery Method Room Air 05/20/23 07:01 Oxygen Flow Rate 0 05/20/23 07:01
[2023-05-20] MEDS: Dexamethasone 4 MG TAB 6 MG PO (07:57)
[2023-05-20] MEDS: Cetirizine 10 MG TAB PO (07:57)
[2023-05-20 08:05] VITALS: PULSE 97; RESP 16; O2SAT 97
== END 2023-05-20 08:04 | disposition home or self-care (01) ==
PROVIDERS: Emergency Provider Emergency Medicine; PCP Nurse Practitioner Family
DX: R21 Rash and other nonspecific skin eruption (principal)
CPT/HCPCS: 99283; 99284; J8540

== ENCOUNTER 2023-05-21 22:36 | Emergency (ER) | payer OTHER, MEDICAID, SELFPAY ==
[2023-05-21 22:37] VITALS: BP 161/70; PULSE 84; RESP 16; TEMP 36.6; O2SAT 98
--- NOTE | 2023-05-21 23:03 | W.ED.GENAD ---
Discharge Plan Disposition Patient Disposition: Home Condition: Good Discharge Details Chief Complaint: RashLesion Clinical Impression: Erythema multiforme Primary Care Provider: Renzo Castano ED Provider: Scout Freeman Home Meds and New Rx's Prescriptions: No Action calcium carbonate [Calcium 600] 600 mg calcium (1,500 mg) tablet 600 mg PO BID polyethylene glycol 3350 17 gram/dose powder 238 g PO ONCE Qty: 238 0RF Rx Instructions: take per colonoscopy instructions bisacodyl [Dulcolax (bisacodyl)] 5 mg tablet,delayed release (DR/EC) 5 mg PO ONCE Qty: 4 0RF Rx Instructions: take per colonoscopy instructions nystatin 100,000 unit/mL suspension 100,000 unit PO QID 14 Days Qty: 60 0RF Eliquis 5 mg tablet 5 mg PO BID Qty: 6 1RF warfarin 5 mg tablet 5 mg PO QPM Qty: 90 3RF Protocol: Dose Management Condition: Sunday Dose/Route: 5 mg Instruction: 1 x 5 mg tablet Condition: Sunday Dose/Route: 5 mg Instruction: 1 x 5 mg tablet Condition: Sunday Dose/Route: 5 mg Instruction: 1 x 5 mg tablet Condition: Sunday Dose/Route: 5 mg Instruction: 1 x 5 mg tablet Condition: Dose/Route: 5 mg Instruction: 1 x 5 mg tablet Condition: Sunday Dose/Route: 5 mg Instruction: 1 x 5 mg tablet Condition: Sunday Dose/Route: 5 mg Instruction: 1 x 5 mg tablet Protocol Text: Adjustment Start Date: Sunday05/18/23 INR Value: 2.5 INR Date: 05/18/23 Recheck Date: 05/25/23 pregabalin 50 mg capsule 50 mg PO TID Qty: 90 2RF prednisone 20 mg tablet 40 mg PO DAILY Qty: 10 0RF Elbow Sleeve 1 DAILY Qty: 1 0RF Rx Instructions: Dx: Left ulnar neuropathy gabapentin 600 mg tablet 600 mg PO TID Qty: 270 2RF Hold Instructions: Trying Lyrica omeprazole 40 mg capsule,delayed release(DR/EC) 40 mg PO HS Qty: 90 3RF dapsone 25 mg tablet 50 mg PO BID Qty: 240 3RF baclofen 10 mg tablet 20 mg PO HS Qty: 90 3RF (DME) blood sugar diagnostic Strip 1 ea Miscellaneous BID Qty: 200 5RF Rx Instructions: Twice a day testing (DME) lancets [OneTouch Delica Lancets] 33 gauge misc See Rx Instructions .ROUTE DAILY Qty: 100 4RF Rx Instructions: One each daily metformin 1,000 mg tablet 1,000 mg PO BID Qty: 180 4RF ciclopirox 0.77 % suspension 1 applic topical DAILY 42 Days Qty: 60 2RF hydrocodone-acetaminophen 10-325 mg tablet 1 tab PO Q6H MDD 4 tabs PRN (Reason: chronic pain) Qty: 112 0RF amitriptyline 25 mg Tablet 25 mg PO QHS ferrous gluconate 324 mg (37.5 mg iron) tablet 324 mg PO QMWF clotrimazole 10 mg emily 10 mg mucous membrane .5xd Qty: 30 1RF magnesium chloride 64 mg tablet,delayed release (DR/EC) 128 mg PO BID Qty: 120 0RF cetirizine 5 mg tablet 5 mg PO DAILY PRNQty: 7 0RF Discharge Instructions Additional Instructions: At this time you have a rash concerning for erythema multiforme. This may be secondary to the contrast or medication. Please continue taking your prescribed steroids as directed. Please also take your antihistamine/antiallergy medications as directed. Please follow-up closely with [facility] tomorrow at your scheduled appointment. They will contact you if they want to transition this to a in person appointment. If you notice any worsening of your symptoms, or any new symptoms such as worsening rash, vomiting, diarrhea, fever, chills, shortness of breath, chest pain, numbness, weakness, or fainting , please return immediately to the emergency department for reevaluation. Please follow up with your primary care provider as soon as possible for reassessment and reevaluation. As always, it was a pleasure participating in your medical care today. 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 She presents today for evaluation of rash. About 4 days ago the patient had an outpatient CAT scan with IV contrast. Shortly thereafter she developed a mild rash over her groin and arms. She was seen by my colleague Dr. Hdz, and at that time symptoms did not show any concerning red flags. She was given Decadron, recommended antihistamines and discharge. Patient immediately went to the [place] emergency department where she was also diagnosed with a noncritical rash. In addition to the medications had previously been given, she was given additional IM steroids and oral steroids. The following day she then went to her primary care provider who also diagnosed her with a nwv-uqyp-rrgurfnnsuk rash, and increased her steroid dosage and length of steroid use. That was this morning. This evening she presents via EMS for further assessment of rash. She states that she feels that the rash has been worsening. It itches, and causes pain. She denies vomiting or diarrhea. She denies fever or chills. She has been taking Lyrica but has been doing this for the last few months. She denies any new meds otherwise. She denies any vomiting or diarrhea. She denies any burning with urination. She does feel that she has potentially 1 lesion in her mouth of the right, but denies any other abnormalities otherwise. She denies having had a rash like this before. She does feel that it is spreading. No other complaints at this time. No other modifying factors. Exam demonstrates notable rash over her proximal thighs, groin area, stomach, back, and proximal aspect of her right and left upper extremity. Rashes and erythematous raised plaque-like circular rash with multiple lesions with diameters of roughly 2 cm. There is central clearing present, peripheral borders slightly raised. There is convalescence on the posterior thighs, as well as the right anterior thigh. Slight convalescence for the right upper arm. I do not see any evidence of lesions in her mouth, however she does feel that she has something under one of her lips on the right. I do not see any clear evidence of this so. She has no burning with urination to suggest mucosal involvement otherwise. At this stage she has no crusting on her lips. No conjunctival injection. No blisters. Symptoms are currently inconsistent with Church-Thomas syndrome or toxic epidermal necrolysis. At this time they are concerning for erythema multiforme. I did reach out to [facility] and discussed the case with Dermatology Dr Stone, we uploaded the images of the patient's rash to [facility]'s media section tabs. He did review the images. We discussed the case. He too is concern for erythema multiforme. He recommends continuation of the steroids and antihistamines and prompt follow-up tomorrow at her scheduled appointment with [facility]. Patient was given some morphine and Atarax, and this notably improved her symptoms clinically subjectively. I discussed the entire scenario with her family who is at bedside and the patient. Patient will follow-up closely with [facility]. We discussed concerning red flags for which to immediately return. She has her medications at home including her antihistamines and her steroids. No current clinical evidence of staph scalded skin syndrome, erythema multiforme, erythema migrans, toxic epidermal necrolysis, Church-Thomas syndrome, Kawasaki-like rash, meningococcemia, pemphigus vulgaris, or necrotizing fasciitis. I have extensively reviewed the treatment plan and discharge instructions with the patient and their family. I have addressed all patient concerns at this time. The patient and family was made aware of what symptoms to monitor for that would warrant a return to the emergency department. Discussed the plan with the patient and family, they demonstrate verbal understanding and agreement with our assessment and plan at this time. The documentation in this chart was dictated using [employer] dictation software. Please excuse any dictation errors. HPI General Date/Time Provider Initiated Documentation: 05/21/23 22:43. 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 She presents today for evaluation of rash. About 4 days ago the patient had an outpatient CAT scan with IV contrast. Shortly thereafter she developed a mild rash over her groin and arms. She was seen by my colleague Dr. Hdz, and at that time symptoms did not show any concerning red flags. She was given Decadron, recommended antihistamines and discharge. Patient immediately went to the [place] emergency department where she was also diagnosed with a noncritical rash. In addition to the medications had previously been given, she was given additional IM steroids and oral steroids. The following day she then went to her primary care provider who also diagnosed her with a zwt-exva-embbpvwgtat rash, and increased her steroid dosage and length of steroid use. That was this morning. This evening she presents via EMS for further assessment of rash. She states that she feels that the rash has been worsening. It itches, and causes pain. She denies vomiting or diarrhea. She denies fever or chills. She has been taking Lyrica but has been doing this for the last few months. She denies any new meds otherwise. She denies any vomiting or diarrhea. She denies any burning with urination. She does feel that she has potentially 1 lesion in her mouth of the right, but denies any other abnormalities otherwise. She denies having had a rash like this before. She does feel that it is spreading. No other complaints at this time. No other modifying factors. Related Data Home Medications Medication Instructions Recorded Confirmed gabapentin 600 mg tablet 600 mg PO TID #270 tabs 10/04/20 05/21/23 omeprazole 40 mg capsule,delayed 40 mg PO HS #90 caps 08/07/22 05/21/23 release dapsone 25 mg tablet 50 mg PO BID #240 tab-caps 08/31/22 05/21/23 baclofen 10 mg tablet 20 mg PO HS #90 tab-caps 09/13/22 05/21/23 blood sugar diagnostic #200 strips 12/18/22 05/21/23 lancets 33 gauge (OneTouch Delica #100 ea 12/18/22 05/21/23 Lancets) metformin 1,000 mg tablet 1,000 mg PO BID #180 tab-caps 03/19/23 05/21/23 amitriptyline 25 mg tablet 25 mg PO QHS 04/04/23 05/21/23 ferrous gluconate 324 mg (37.5 mg 324 mg PO QMWF 04/04/23 05/21/23 iron) tablet clotrimazole 10 mg emily 10 mg mucous membrane .5xd #30 tabs 04/05/23 05/21/23 magnesium chloride 64 mg 128 mg PO BID #120 tabs 04/05/23 05/21/23 (magnesium chloride) tablet,delayed release ciclopirox 0.77 % topical 1 applic topical DAILY 6 weeks #60 04/11/23 05/21/23 suspension mL bisacodyl 5 mg tablet,delayed 5 mg PO ONCE colonscopy bowel prep 04/18/23 05/21/23 release (Dulcolax (bisacodyl)) #4 tabs calcium carbonate 600 mg calcium 600 mg PO BID 04/18/23 05/21/23 (1,500 mg) tablet (Calcium) polyethylene glycol 3350 17 238 g PO ONCE colonoscopy prep 04/18/23 05/21/23 gram/dose oral powder #238 grams hydrocodone 10 mg-acetaminophen 1 tab PO Q6H PRN chronic pain #112 04/30/23 05/21/23 325 mg tablet tabs pregabalin 50 mg capsule 50 mg PO TID #90 caps 05/09/23 05/21/23 warfarin 5 mg tablet 5 mg PO QPM #90 tabs 05/09/23 05/21/23 apixaban 5 mg tablet (Eliquis) 5 mg PO BID #6 tabs 05/10/23 05/21/23 nystatin 100,000 unit/mL oral 100,000 unit PO QID 14 days #60 mL 05/10/23 05/21/23 suspension cetirizine 5 mg tablet 5 mg PO DAILY PRN #7 tabs 05/20/23 05/21/23 prednisone 20 mg tablet 40 mg PO DAILY #10 tabs 05/21/23 05/21/23 Previous Rx's Medication Instructions Recorded gabapentin 600 mg tablet 600 mg PO TID #270 tabs 10/04/20 omeprazole 40 mg capsule,delayed 40 mg PO HS #90 caps 08/07/22 release dapsone 25 mg tablet 50 mg PO BID #240 tab-caps 08/31/22 baclofen 10 mg tablet 20 mg PO HS #90 tab-caps 09/13/22 blood sugar diagnostic #200 strips 12/18/22 lancets 33 gauge (OneTouch Delica #100 ea 12/18/22 Lancets) metformin 1,000 mg tablet 1,000 mg PO BID #180 tab-caps 03/19/23 clotrimazole 10 mg emily 10 mg mucous membrane .5xd #30 tabs 04/05/23 magnesium chloride 64 mg 128 mg PO BID #120 tabs 04/05/23 (magnesium chloride) tablet,delayed release ciclopirox 0.77 % topical 1 applic topical DAILY 6 weeks #60 04/11/23 suspension mL bisacodyl 5 mg tablet,delayed 5 mg PO ONCE colonscopy bowel prep 04/18/23 release (Dulcolax (bisacodyl)) #4 tabs polyethylene glycol 3350 17 238 g PO ONCE colonoscopy prep 04/18/23 gram/dose oral powder #238 grams hydrocodone 10 mg-acetaminophen 1 tab PO Q6H PRN chronic pain #112 04/30/23 325 mg tablet tabs pregabalin 50 mg capsule 50 mg PO TID #90 caps 05/09/23 warfarin 5 mg tablet 5 mg PO QPM #90 tabs 05/09/23 apixaban 5 mg tablet (Eliquis) 5 mg PO BID #6 tabs 05/10/23 nystatin 100,000 unit/mL oral 100,000 unit PO QID 14 days #60 mL 05/10/23 suspension cetirizine 5 mg tablet 5 mg PO DAILY PRN #7 tabs 05/20/23 prednisone 20 mg tablet 40 mg PO DAILY #10 tabs 05/21/23 Allergies Allergy/AdvReac Type Severity Reaction Status Date / Time rizatriptan benzoate Allergy Severe tongue Verified 05/21/23 12:56 [From Maxalt] swelling, diff.swallowing per pt azithromycin Allergy Intermediate SOB-pt Verified 05/21/23 12:56 reported sulfamethoxazole Allergy Intermediate Verified 05/21/23 12:56 trimethoprim [From Bactrim] Allergy Intermediate Verified 05/21/23 12:56 adhesive Allergy RASH Verified 05/21/23 12:56 wheat Allergy SKIN RASH Verified 05/21/23 12:56 sertraline AdvReac Intermediate sweating Verified 05/21/23 12:56 tramadol AdvReac Intermediate Nausea Verified 05/21/23 12:56 venlafaxine AdvReac Intermediate sweating,fa Verified 05/21/23 12:56 tigue,malai se amoxicillin AdvReac GI UPSET Verified 05/21/23 12:56 ondansetron [From Zofran] AdvReac can taste Verified 05/21/23 12:56 pill for days...per pt promethazine AdvReac jitters Verified 05/21/23 12:56 General Stated Complaint: RashLesion JOSE JUAN: 5 Review of Systems All systems reviewed & are unremarkable except as noted in HPI and below PFSH All Active Problems (Updated 05/21/23 @ 23:44 by Scout Freeman DO) Erythema multiforme (Acute) Urticarial rash (Acute) Left hand pain (Acute) Seborrheic dermatitis (Acute) Hypomagnesemia (Acute) Myositis associated antibody positive (Acute) Per [facility] Candidiasis of mouth (Acute) Generalized weakness (Acute) Gait abnormality (Acute) Bursitis of right shoulder (Chronic 07/04/16) Carpal tunnel syndrome of right wrist (Chronic 08/03/15) Celiac disease (Chronic 07/19/05) Diagnosed by skin biopsy, no h/o colonoscopy. Chronic pain syndrome (Chronic 05/23/13) Depressive disorder (Chronic) Dermatitis herpetiformis (Chronic 12/31/14) Diabetes (Chronic 12/01/13) Diabetic peripheral neuropathy (Chronic 08/03/15) OPTICAL EXPRESSIONS; 08/31/15; LEFT EYE Gastroesophageal reflux disease (Chronic) History of pulmonary embolus (PE) (Chronic 05/15/13) Hyperlipidemia (Chronic) Irritable bowel syndrome with diarrhea (Chronic 06/26/17) Low back pain (Chronic) Migraine (Chronic) Nocturnal leg cramps (Chronic 07/04/16) Obesity (Chronic) Peripheral vascular disease (Chronic 07/28/14) Stable RAFI 12/2022 at [facility] Smoker (Chronic) Spinal stenosis, lumbar region with neurogenic claudication (Chronic 08/17/15) 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) Venous insufficiency of both lower extremities (Chronic 08/03/15) Chronic pain in left foot (Chronic) Protein C deficiency (Chronic) Chronic cough (Chronic) Dyspnea on effort (Acute) Microcytic anemia (Acute) Pulmonary embolism (Acute) Plantar fasciitis (Acute) Foot pain (Acute) Elevation of level of transaminase and lactic acid dehydrogenase (LDH) (Acute) History of dysmenorrhea (Acute 07/19/95) Corns and callus (Acute) Carpal tunnel syndrome (Acute) Abnormal liver function (Acute) Corns (Chronic) Zoster (Acute) Epigastric pain (Acute) Fatigue (Acute) Chronic anticoagulation (Acute) Elevated blood pressure reading (Acute) Leg pain (Acute) Hoarseness of voice (Acute) Sore throat (Acute) Chronic anemia (Acute) Pt refuses colonoscopy. Feels related to Celiac Disease Abnormal LFTs (liver function tests) (Acute) Encounter for immunization (Acute) Gout (Chronic) Right foot pain (Acute) Chest pain (Acute) Mid back pain (Acute) Thoracic back pain (Acute) Edema of left foot (Acute) Left foot pain (Acute) Right arm pain (Acute) Other osteoporosis with current pathological fracture, left ankle and foot, sequela (Acute) Calcinosis cutis (Acute) Medical History Diabetes mellitus DVT (deep venous thrombosis) GERD (gastroesophageal reflux disease) Nausea & vomiting Pulmonary embolism Surgical History section History of angioplasty of peripheral vessel left iliac vein stent (10/01/2009) [facility] diameter 18mm, length 60mm, lot [id number] History of carpal tunnel surgery of left wrist History of section Hx of cholecystectomy Family History Mother Personal history of malignant neoplasm BONE,THYROID,BACK,LIVER,BLADDER,BREAST Father Asthma Sister No problems noted. Brother No problems noted. Social History Smoking/Tobacco Use Status: Current every day Tobacco Type: cigarettes Smoking risk assessment performed?: Yes Alcohol Intake: never Drug use: Never Substance use type: does not use Household members: spouse Housing: house What type of physical activity do you participate in: none Do you feel safe at home: Yes Do you feel safe in your relationship?: Yes Exam Narrative Exam Narrative: 1.Const: Well-nourished, Well-developed, appearing stated age 2.Eyes: PERRL, no conjunctival injection, and symmetrical lids. 3.ENT: Atraumatic external nose and ears. Moist MM. Neck: Symmetric, trachea midline, No thyromegaly. 4.CVS: +S1/S2, No murmurs or gallops. Peripheral pulses 2+ and equal in all extremities. Brisk capillary refill in all extremities. 5.RESP: Unlabored respiratory effort. Clear to auscultation bilaterally. No wheezes rales or rhonchi 6.GI: Soft, Nontender/Nondistended, No hepatosplenomegaly. No guarding or rebound. 7.MSK: Normocephalic/Atraumatic, Extremities w/o deformity or ttp No cyanosis or clubbing, Normal movement of all extremities 8.Skin: Patient demonstrates notable rash over her proximal thighs, groin area, stomach, back, and proximal aspect of her right and left upper extremity. Rashes and erythematous raised plaque-like circular rash with multiple lesions with diameters of roughly 2 cm. There is central clearing present, peripheral borders slightly raised. There is convalescence on the posterior thighs, as well as the right anterior thigh. Slight convalescence for the right upper arm. Negative Nikolsky sign. No large vesicles or bulla. No palpable purpura. No oral lesions that I can visualize. No mucosal lesions. No evidence of severe cellulitis. No evidence of vaccine preventable rash. 9.Neuro: car whacker II-XII grossly intact. Sensation grossly intact, no focal neurologic deficits. 10.Psych: (AAO) x3. Appropriate mood and affect Course Vital Signs Vital signs: Vital Signs Temperature 36.6 C 05/21/23 22:37 Pulse 84 05/21/23 22:37 Respiratory Rate 16 05/21/23 22:37 Blood Pressure 161/70 H 05/21/23 22:37 Pulse Oximetry 98 05/21/23 22:37 Temperature 36.6 C 05/21/23 22:37 Temperature Source Oral 05/21/23 22:37 Pulse 84 05/21/23 22:37 Respiratory Rate 16 05/21/23 22:37 Respiratory Effort Normal 05/21/23 22:38 Blood Pressure 161/70 H 05/21/23 22:37 Pulse Oximetry 98 05/21/23 22:37 Oxygen Delivery Method Room Air 05/21/23 22:37 Oxygen Flow Rate 0 05/21/23 22:37 Pain Level 9 05/21/23 22:37
[2023-05-21] MEDS: MORPHine 10 MG/ML VIAL 6 MG IM (23:26)
[2023-05-21] MEDS: hydrOXYzine HCL 50 MG TAB PO (23:26)
== END 2023-05-21 23:56 | disposition home or self-care (01) ==
LOC: ER 23:46
PROVIDERS: Emergency Provider Student in an Organized Health Care Education/Training Program; PCP Nurse Practitioner Family
DX: L51.9 Erythema multiforme, unspecified (principal)
CPT/HCPCS: 96372; 99284; J2270; J3490

== ENCOUNTER 2023-05-29 13:49 | Outpatient (CLI) | payer OTHER, SELFPAY ==
[2023-05-29 13:39] LABS: Anion Gap 13.6 mmol/L (3-11); BUN 23 mg/dL (7-18); CO2 21.4 mmol/L (21.0-32.0); CREATININE 1.7 mg/dL (0.55-1.02); Calcium 9.3 mg/dL (8.5-10.1); Chloride 92 mmol/L (98-107); Estimated GFR 32.87 (mL/min/1.73m2); Glucose 160 mg/dL (74-106); Sodium 127 mmol/L (136-145)
[2023-05-29 14:19] LABS: INR 1.8 (0.9-1.1)
== END 2023-05-29 13:50 | disposition home or self-care (01) ==
LOC: LBO 13:49
PROVIDERS: PCP Nurse Practitioner Family; Visit Provider Nurse Practitioner Family
DX: I26.99 Other pulmonary embolism without acute cor pulmonale (principal); E87.1 Hypo-osmolality and hyponatremia; E83.42 Hypomagnesemia; Z79.01 Long term (current) use of anticoagulants
CPT/HCPCS: 36415; 80048; 85610

== ENCOUNTER 2023-06-01 05:07 | Outpatient (CLI) | payer OTHER, SELFPAY ==
[2023-06-01 08:13] LABS: INR 2.6 (0.9-1.1); Prothrombin Time 24.4 sec (9.1-11.1)
[2023-06-01 09:30] LABS: Anion Gap 7.3 mmol/L (3-11); BUN 26 mg/dL (7-18); CO2 23.7 mmol/L (21.0-32.0); CREATININE 1.4 mg/dL (0.55-1.02); Calcium 9.5 mg/dL (8.5-10.1); Chloride 96 mmol/L (98-107); Estimated GFR 41.49 (mL/min/1.73m2); Glucose 103 mg/dL (74-106); Potassium 4.6 mmol/L (3.5-5.1); Sodium 127 mmol/L (136-145)
== END 2023-06-01 05:08 | disposition home or self-care (01) ==
LOC: LBO 05:08
PROVIDERS: PCP Nurse Practitioner Family; Visit Provider Nurse Practitioner Family
DX: I26.99 Other pulmonary embolism without acute cor pulmonale (principal); E87.1 Hypo-osmolality and hyponatremia
CPT/HCPCS: 36415; 80048; 85610

== ENCOUNTER 2023-06-06 04:23 | Outpatient (CLI) | payer OTHER, SELFPAY ==
[2023-06-06 12:21] LABS: Sodium 132 mmol/L (136-145)
[2023-06-06 12:25] LABS: INR 2.8 (0.9-1.1); Prothrombin Time 25.7 sec (9.1-11.1)
== END 2023-06-06 04:24 | disposition home or self-care (01) ==
PROVIDERS: PCP Nurse Practitioner Family; Visit Provider Nurse Practitioner Family
DX: E87.1 Hypo-osmolality and hyponatremia; I26.99 Other pulmonary embolism without acute cor pulmonale
CPT/HCPCS: 36415; 84295; 85610

== ENCOUNTER 2023-06-13 13:17 | Outpatient (REF) | payer OTHER, SELFPAY ==
[2023-06-13 13:47] LABS: Sodium 135 mmol/L (136-145)
== END 2023-06-13 13:18 | disposition home or self-care (01) ==
LOC: LBN 13:17
PROVIDERS: PCP Nurse Practitioner Family; Visit Provider Nurse Practitioner Family
DX: E87.1 Hypo-osmolality and hyponatremia (principal)
CPT/HCPCS: 84295

== ENCOUNTER → 2023-08-07 01:37 | Outpatient (CLI) | payer OTHER, SELFPAY ==
--- NOTE | 2023-08-07 | DI.NM_ITS ---
Exam(s) NM BONE SCAN 3 PHASE EXAM: NM BONE SCAN 3 PHASE CLINICAL HISTORY: abnormal ct,mri,r90.89,r93.89,? metastasis. TECHNIQUE: Injected Dose: 25 mCi Tc-99m MDP COMPARISON: NM WholeBody from 08/28/[address] LOWER EXTREMITY LT W from 04/04/2023 FINDINGS: Compared to the nuclear bone scan of August 2012 there is now increased uptake seen in the left side of the lower lumbar spine approximately L5 level. Also another area of uptake seen in the T8 or T9 vertebral body, not previously evident. No new abnormal uptake in the rib cages nor in the pelvis and hips long bones. No new abnormal uptak e in skull. Some uptake in the left foot and ankle as well as within the both wrists is degenerative nature. Als o mild increased uptake seen in the right sternoclavicular joint region is probably degenerative. IMPRESSION: 1. New areas of abnormal uptake in the lower lumbar spine and midthoracic spine when compared to the prior nuclear scan of 2012. The thoracic uptake is probably related to a compression fracture. The L 5 level uptake may be related to fracture versus facet arthropathy. It would require distal imaging with CT scan for added specificity here. DATA REPOSITORY:
== END ==
PROVIDERS: PCP Nurse Practitioner Family; Visit Provider Nurse Practitioner Family
DX: R93.89 Abnormal findings on diagnostic imaging of other specified body structures (principal)
CPT/HCPCS: 78315

== ENCOUNTER 2023-09-27 02:06 | Outpatient (CLI) | payer OTHER, SELFPAY ==
[2023-09-27 09:57] LABS: INR 1.4 (0.9-1.1); Prothrombin Time 13.7 sec (9.1-11.1)
[2023-09-27 10:02] LABS: ALT 50 U/L (14-59); AST 35 U/L (15-37); Albumin 3.2 g/dL (3.4-5.0); Alkaline Phosphatase 185 U/L (46-116); Anion Gap 9.9 mmol/L (3-11); BUN 16 mg/dL (7-18); Bilirubin, Total 0.3 mg/dL (0.2-1.0); CO2 24.1 mmol/L (21.0-32.0); CREATININE 1.2 mg/dL (0.55-1.02); Chloride 105 mmol/L (98-107); Estimated GFR 49.92 (mL/min/1.73m2); Glucose 191 mg/dL (74-106); Sodium 139 mmol/L (136-145); Total Protein 7.8 g/dL (6.4-8.2)
== END 2023-09-27 02:07 | disposition home or self-care (01) ==
LOC: LBO 02:06
PROVIDERS: PCP Nurse Practitioner Family; Visit Provider Nurse Practitioner Family
DX: R51.9 Headache, unspecified (principal); I26.99 Other pulmonary embolism without acute cor pulmonale
CPT/HCPCS: 36415; 80053; 85610

== ENCOUNTER → 2023-11-20 10:13 | Outpatient (BNVA) | payer OTHER, SELFPAY | PROVIDERS: PCP Nurse Practitioner Family; Referring Provider Nurse Practitioner Family; Visit Provider Psychiatry & Neurology Neurology | DX: G43.109 Migraine with aura, not intractable, without status migrainosus (principal); G89.29 Other chronic pain | CPT/HCPCS: 99213 ==

== ENCOUNTER 2023-12-04 14:40 | Outpatient (CLI) | payer OTHER, SELFPAY ==
--- NOTE | 2023-12-04 09:15 | DI.RAD_ITS ---
Exam(s) XR SHOULDER RT COMPLETE 2+V EXAM: XR SHOULDER RT COMPLETE 2+V CLINICAL HISTORY: RIGHT SHOULDER PAIN. TECHNIQUE: 2D digital imaging was performed. Five views. COMPARISON: CR XR CHEST 2V PA LATERAL from 07/18/2022 FINDINGS: BONES: No acute fracture is present. No bony destructive lesion is seen. JOINTS: No dislocation present. Mild spurring at the AC joint. Mild narrowing of the glenohumeral j oint. SOFT TISSUE: Normal. IMPRESSION: Mild degenerative changes. DATA REPOSITORY: RADIATION DOSE DELIVERED:
== END 2023-12-04 14:41 | disposition home or self-care (01) ==
LOC: DIORS 14:40
PROVIDERS: PCP Nurse Practitioner Family; Referring Provider Nurse Practitioner Family; Visit Provider Student in an Organized Health Care Education/Training Program
DX: M25.511 Pain in right shoulder (principal); G89.29 Other chronic pain
CPT/HCPCS: 20610; 99213; J1010; 73030; J1030

== ENCOUNTER 2024-03-05 15:25 | Outpatient (REF) | payer OTHER, SELFPAY ==
[2024-03-05 21:49] LABS: Bilirubin Negative (Negative); Blood Negative (Negative); Clarity Clear (Clear); Glucose Negative (Negative); Ketones Negative (Negative); Leukocyte Esterase Negative (Negative); Nitrite Negative (Negative); Urobilinogen 0.2 mg/dL (Up to 0.2)
[2024-03-05 21:57] LABS: Bacteria Negative HPF (Negative); C & S Indicated? No; Crystals Negative HPF (Negative); Epithelial Cells Rare HPF (Negative); Mucus Negative (Negative); RBC 0-2 HPF (0-2); WBC Negative HPF (0-5)
== END 2024-03-05 15:26 | disposition home or self-care (01) ==
LOC: LBN 15:25
PROVIDERS: PCP Nurse Practitioner Family; Visit Provider Nurse Practitioner Family
DX: R35.0 Frequency of micturition (principal); R31.9 Hematuria, unspecified
CPT/HCPCS: 81003; 81015

== ENCOUNTER → 2024-03-21 09:32 | Outpatient (CLI) | payer OTHER, SELFPAY ==
--- NOTE | 2024-03-21 07:30 | DI.RAD_ITS ---
Exam(s) XR THORACIC SPINE COMPLETE EXAM: XR THORACIC SPINE COMPLETE CLINICAL HISTORY: fall trying to sit M54.6 PAIN IN T SPINE. TECHNIQUE: 2D digital imaging was performed. Three views. COMPARISON: CR XR CHEST 2V PA LATERAL from 07/18/2022 FINDINGS: BONES: There is a stable severe compression fracture T9. Stable mild compression of T7 and T8. Liane ining vertebral bodies are maintained in height. ALIGNMENT: Mild kyphoscoliosis. DISKS: Small endplate osteophytes. Mild multilevel anterior disc space narrowing. SOFT TISSUE: Visualized lungs are clear. IMPRESSION: Stable mid thoracic compression fractures. DATA REPOSITORY: RADIATION DOSE DELIVERED:
== END ==
PROVIDERS: PCP Nurse Practitioner Family; Visit Provider Nurse Practitioner Family
DX: M54.6 Pain in thoracic spine (principal); S22.070A Wedge compression fracture of T9-T10 vertebra, initial encounter for closed fracture
CPT/HCPCS: 72072

== ENCOUNTER 2024-03-21 13:56 | Outpatient (CLI) | payer OTHER, SELFPAY ==
--- OUTSIDE RECORDS SUMMARY | 2024-03-21 13:58 | XMS_ITS | Encounter Summary ---
[place] [address] Care Team Providers Care Helix Coil Winder Name Role Phone Renzo Castano APRN Primary Care Provider +1- [phone] Encounter Details Date Type Department Care Team (Late st Contact Info) Description 03/11/2024 Interpretation Only [address] [phone] DannyJai de leon, DPM [address] [place] [address] Social History Tobacco Use Types Packs/Day Years Used Date Smoking Tobacco: Every Day Cigarettes Smokeless Tobacco: Never Alcohol Use Standard Drinks/Week Comments No 0 (1 standard drink = 0.6 oz pur e alcohol) IPV Inpatient Questions Answer Date Recorded Does Anyone Try to Keep You From Having Contact with Others or Doing Things Outside Your Home? no 05/23/2023 Feels Threatened by Someone no 11/2022 Feels Unsafe at Home or Work/School no 05/23/2023 Physical Signs of Abuse Present no 05/23/2023 Sex and Gender Information Value Date Recorded Sex Assigned at Not on file Gender Identity Not on file Sexual Orientation Not on file documented as of this encounter Plan of Treatment Not on file documented as of this encounter Procedures Procedure Name Priority Date/Time Associated Diagnosis Comments XR FOOT MIN 3 VIEWS RIGHT Routine 03/11/2024 2:24 PM EDT documented in this encounter Results * XR Foot Min 3 views Right (Generic) (03/11/2024 2:24 PM EDT) PT CLASS O RAD ADMITDTTM [id number] [facility] PT [facility] INFO [id number]^Danny ^Jai^P RAD EXAM DESC [id number]^XR Foot Complete 3+ Views Right^RIS [facility] WORKSTATION ID [id number] [facility] Anatomical Region Laterality Modality Foot Right Radiographic Kathie ging 03/11/2024 2:07 PM EDT Impressions 03/11/2024 3:51 PM EDT 1. ??Osteoarthropathy at scattered sites. 2. ??Flattened second metatarsal head resembles remote impaction injury or fracture. Thank you for letting us participate in the care of this patient. ??If you are a health care provider and have any questions regarding this report, please contact the number below. ??For patients who have questions please contact the health director of health care marketing that requested your imaging first. ? Narrative 03/11/2024 3:51 PM EDT EXAMINATION: XR Foot Complete 3+ Views Right CLINICAL HISTORY: Entered by ordering service: Right foot and heel pain TECHNIQUE: RIGHT foot, 3 view[s], standing COMPARISON: RIGHT ankle, November 2009 FINDINGS: Bones Decreased bone mineralization. No acute fracture or periostitis. Calcaneus-prominent posterior and plantar calcaneal enthesophytes. Lesser toes-claw toes and hammer toes. Second metatarsal-flattened bone and with osteophytes and areas of chronic nature. Joints Ankle-normal alignment on lateral view without large effusion. MTP joints- One MTP-narrowed joint space with osteophytes. Second MTP-normal joint space with osteophytes. Lisfranc joint-normal spacing and alignment. Soft Tissue No soft tissue air or foreign body detected. Procedure Note Gisell Blackwell MD - 03/11/2024 EXAMINATION: XR Foot Complete 3+ Views Right CLINICAL HISTORY: Entered by ordering service: Right foot and heel pain TECHNIQUE: RIGHT foot, 3 view[s], standing COMPARISON: RIGHT ankle, November 2009 FINDINGS: Bones Decreased bone mineralization. No acute fracture or periostitis. Calcaneus-prominent posterior and plantar calcaneal enthesophytes. Lesser toes-claw toes and hammer toes. Second metatarsal-flattened bone and with osteophytes and areas ofchronic nature. Joints Ankle-normal alignment on lateral view without large effusion. MTP joints- One MTP-narrowed joint space with osteophytes. Second MTP-normal joint space with osteophytes. Lisfranc joint-normal spacing and alignment. Soft Tissue No soft tissue air or foreign body detected. IMPRESSION 1. Osteoarthropathy at scattered sites. 2. Flattened second metatarsal head resembles remote impaction injuryor fracture. Thank you for letting us participate in the care of this patient. If youare a health care provider and have any questions regarding this report,please contact the number below. For patients who have questions please contactthe health director of health care marketing that requested your imaging first. Jai Delgado DPDayne IMG DX ORDERABLES documented in this encounter Visit Diagnoses Not on filedocumented in this encounter Care Teams Helix Coil Winder Relationship Specialty Start Date End Date Renzo Castano, REVIEW SCHEDULING COORDINATOR [address] [place] [address] PCP - General Family Medicine 05/31/21 documented as of this encounter
--- OUTSIDE RECORDS SUMMARY | 2024-03-21 13:58 | XMS_ITS | Encounter Summary ---
Author Organization [facility] [place] [address] Care Team Providers Care Hooker Operator Name Role Phone Renzo Castano APRN Primary Care Provider +1- [phone] Reason for Referral * Consultation (Urgent) - Closed Specialty Diagnoses / Procedures Referred By Contjosette t Referred To Contact Endocrinology Diagnoses Thyroid nodule Earnestine De La Cruz MD [facility] [place] [address] [facility] [address] [place] [address] Referral ID Status Reason Start Date Expiration Date V isits Requested Visits Authorized [id number] Closed Consult, Test & Treat 05/28/2023 05/27/2024 1 1 Encounter Details Date Type Department Care Team (Late st Contact Info) Description 05/28/2023 [place] [address] Earnestine De La Cruz MD [facility] [place] [address] Thyroid nodule; Lung nodule Social History Tobacco Use Types Packs/Day Years Used Date Smoking Tobacco: Every Day Cigarettes Smokeless Tobacco: Never Alcohol Use Standard Drinks/Week Comments No 0 (1 standard drink = 0.6 oz pur e alcohol) [facility] Inpatient Questions Answer Date Recorded Does Anyone [...] as of this encounter Plan of Treatment Scheduled Referrals Name Type Priority Associated Diagnoses Order Schedule Referral to Endocrinology Outpatient Referral Urgent Thyroid nodule Ordered: 05/28/2023 documented as of this encounter Visit Diagnoses Diagnosis Thyroid nodule Nontoxic uninodular goiter Lung nodule Solitary pulmonary nodule documented in this encounter Care Teams Hooker Operator Relationship Specialty Start Date End Date Renzo Castano, TOP DYEING MACHINE LOADER [address] [place] [address] PCP - General Family Medicine 05/31/21 documented as of this encounter
--- OUTSIDE RECORDS SUMMARY | 2024-03-21 13:58 | XMS_ITS | Encounter Summary ---
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 Procedures Duplex for DVT, Leg, Unilat Hali Leavitt MD [facility] [place] [address] [facility] [address] [place] [phone] Referral ID Status Reason Start Date Expiration Date Visits Requested Visits Authorized [id number] Authorized Specialty Service Requested 12/24/2023 11/12/2024 1 1 * Diagnostic Test (Routine) - Pending Review Specialty Diagnoses / Procedures Referred By Contac t Referred To Contact 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 Procedures RAFI, legs, multiple levels Hali Leavitt MD [facility] [place] [address] [facility] [address] [place] [phone] Referral ID Status Reason Start Date Expiration Date Visits Requested Visits Authorized [id number] Pending Review Specialty Service Requested 11/13/2023 11/12/2024 1 1 Encounter Details Date Type Department Care Team (Late st Contact Info) Description 11/13/2023 Orders [place] [address] Margy Dixon RN Left foot pain; May-Thurner syndrome Social History Tobacco Use Types Packs/Day Years Used Date Smoking Tobacco: Every Day Cigarettes Smokeless Tobacco: Never Alcohol Use Standard Drinks/Week Comments No 0 (1 standard drink = 0.6 oz pur e alcohol) [facility] Inpatient Questions Answer Date Recorded Does Anyone [...] on file documented as of this encounter Visit Diagnoses Diagnosis Left foot pain Pain in limb May-Thurner syndrome Compression of vein documented in this encounter Care Teams Lumber Hacker Relationship Specialty Start Date End Date Renzo Castano, XIMENA [address] [place] [address] PCP - General Family Medicine 05/31/21 documented as of this encounter
--- OUTSIDE RECORDS SUMMARY | 2024-03-21 13:58 | XMS_ITS | Continuity of Care Document ---
Author Organization [facility] Address [address] [place] [phone] Care Team Providers Care Wastewater Technician Name Role Phone Renzo Castano Primary Care Physician [phone] Marlys Forbes Unavailable Unavailable Vanessa Joseph Unavailable Unavailable Encounter [facility] [id number] Date(s): 03/11/24 - 03/11/[address] [address] Encounter Diagnosis Acute pain of right foot(Discharge Diagnosis) - 03/11/24 Plantar fasciitis of right foot(Discharge Diagnosis) - 03/11/24 Calcaneal spur of right foot(Discharge Diagnosis) - 03/11/24 Tightness of right gastrocnemius muscle(Discharge Diagnosis) - 03/11/24 Discharge Disposition: Home or Self Care Attending Physician: Jai Delgado DPM Assessment and Plan Future Appointments Functional Status 03/11/24 Family Member Travel History No recent t ravel Recent Travel History No recent travel Problem List Condition Confirmation Course Effective Dates Status H ealth Status Informant Calcaneal spur of right foot Confirmed Active Acute pain of right foot Confirmed Active Plantar fasciitis of right foot Confirmed Active Tightness of right gastrocnemius muscle Confirmed Active Vital Signs Most recent to oldest [Reference Range]: 1 Temperature Oral [35.8-37.3 Deg C] 37 De g C (03/11/24 3:10 PM) Temperature Oral (DegF) [96.4-99.1 Deg F ] 99 Deg F (03/11/24 3:10 PM) Peripheral Pulse Rate [60-100 bpm] 77 bp m (03/11/24 3:10 PM) Blood Pressure [90-140/60-90 mmHg] 132/7 8mmHg (03/11/24 3:10 PM) Weight Measured (lbs) 139.993 lb (03/11/24 3:10 PM) Weight Dosing 63.500 kg (03/11/24 3:10 PM) Jansen Body Weight Calculated 49.665 kg (03/11/24 3:10 PM) Height/Length Measured (inches) 61.81 in (03/11/24 3:10 PM) BSA Measured 1.66 m2 (03/11/24 3:10 PM) Body Mass Index 25.76 kg/m2 (03/11/24 3:10 PM) Height 157 cm (03/11/24 3:10 PM) Weight 63.5 kg (03/11/24 3:10 PM) Social History Social History Type Response Tobacco Former tobacco user Tobacco Use:. Sex Female Physician Outpatient Note * Jai Delgado DPM: PERFORM Event Display: Office Clinic Note Physician Authored Date: [id number] JANNA KURTZ :1955 Age:68 years Sex:Female Visit Date:03/11/2024 Primary Care Physician: Renzo Castano Chief Complaint foot / heel spur painful History of Present Illness Janan is a 68-year-old female patient who is seen today for evaluation and treatment??for intractable pain in the plantar right heel of several months duration.?? She has had intermittent plantar fascial pain over many years and had previous treatment in this office??over 5 years ago with a corticosteroid injection in the right heel.?? She is here today accompanied with her daughter for this office visit Physical Exam Vitals & Measurements T:??37?C ??(Oral)?? HR:??77??(Peripheral)?? BP:??132/78?? SpO2:??97%?? HT:??157??cm?? WT:??63.5??kg?? BMI:??25.76?? BSA:??1.66?? Constitutional: well developed, appears stated age, well nourished, no acute distress, ??alert and oriented to time, place and person, weight-overweight ?? Psychiatric: ??Mental status-good eye contact, mood and affect normal, behavior normal,cognition and thought content normal, fund of knowledge is intact, attention span and ability to concentrate is normal, able to articulate well with normal speech and language ?? Respiratory: Non labored respiratory effort at rest, chest-symmetrical chest wall expansion, no respiratory distress, no intercostal retractions or use of accessory muscles, no adventitious sounds, no shortness of breath, respiration rate of??20 ?? Vascular: Dorsalis pedis pulse-diminished Posterior tibial pulse-absent Venous filling time at the digit levels-2 seconds Digital hair-absent Skin texture and turgor-decreased Pedal temperature-warm Extremity varicosities-none Edema-trace??pedal edema Ischemia-none Digital cyanosis-none ?? Lymphatic: no lymphedema noted ?? Dermatologic: No evidence of erythema, breaks in skin integrity or cellulitis on the cutaneous surfaces of the lower extremities? Neurologic: Alert and oriented times 3, concentrating ability not decreased, symmetrical bulk, strength and tone in the lower extremities, coordination is normal. Sensory examination-grossly intact to light touch on the L4-S1 dermatomes, no evidence of tibial nerve inflammation in the right tarsal tunnel or medial calcaneal neuritis Motor examination-??weakness due to deconditioning Coordination and tremors-no intentional or resting tremors are noted, no adventitious movement noted Muscle fasciculations-no fasciculations noted in the lower extremity muscles Atrophy-no atrophy noted in the intrinsic muscles of the feet, lower legs or thighs? Musculoskeletal: Able to rise from a chair and get up onto the orthopaedic examination table,??acute pain to palpation of the plantar fascia insertion on the right medial tubercle??and proximal one third of the plantar fascia. ??Gastrocnemius tightness is noted with 0 degrees dorsiflexion of the right ankle with the knee extended??and this does improve slightly to 20 degrees dorsiflexion with theknee flexed. ??There is no internal pain in the ankle, subtalar, tarsal??and midtarsal joints. ?? Gait: This patient is in a wheelchair at the time of this examination ? Assessment/Plan 1.??Plantar fasciitis of right foot??M72.2 ??Assessment: Review of x-rays taken today demonstrate large spur formation at the??plantar fascialinsertion??and a smaller spur at the Achilles tendon insertion on the right calcaneal plantar and posterior surfaces.?? Severe osteoporosis is noted on his x-rays. ??Clinical examination correlates with these radiographic findings. ?? Plan: This patient was placed on progressive stretching exercises with Ioband??stretch bands Arik placed a plantar rest taping on the foot to be left on for 3 days. ??The patient has declined a corticosteroid injection at this time.?? I will see her back for follow-up in 6 weeks and if pain persist we will consider physical therapy referral. 2.??Calcaneal spur of right foot??M77.31 3.??Tightness of right gastrocnemius muscle??M62.89 Acute pain of right foot??M79.671 Problem List/Past Medical History Ongoing Acute pain of right foot Calcaneal spur of right foot Plantar fasciitis of right foot Tightness of right gastrocnemius muscle Historical No qualifying data Medications No active medications Allergies No active allergies Social History Electronic Cigarette/Vaping Electronic Cigarette Use: Never. Tobacco Former tobacco user Tobacco Use:. Electronically Signed on 03/11/2024 16:03 EDT Jai Delgado DPDayne Patient Care team information Care Team Personnel Name: Renzo Castano Position: No Access Member Role: Primary Care Physician Address: Address: [address] [place] [phone] [place] Name: Marlys Forbes Position: Ambulatory - Chemist Proteins Member Role: Chemist Proteins Name: Vanessa Joseph Position: Ambulatory - Chemist Proteins Member Role: Chemist Proteins
--- OUTSIDE RECORDS SUMMARY | 2024-03-21 13:58 | XMS_ITS | Continuity of Care Document ---
Author Organization [facility] Address [address] [place] [address] Care Team Providers Care Gang Ripsaw Operator Name Role Phone Renzo Castano Primary Care Physician Marlys Forbes Unavailable Unavailable Vanessa Joseph Unavailable Unavailable Encounter [facility] [id number] Date(s): 03/11/24 - 03/11/[address] [address] Discharge Disposition: Home or Self Care Attending Physician: Jai Delgado DPM Admitting Physician: Jai Delgado DPM Referring Physician: Renzo Castano Assessment and Plan Future Appointments Problem List Condition Confirmation Course Effective Dates Status H ealth Status Informant Calcaneal spur of right foot Confirmed Active Acute pain of right foot Confirmed Active Plantar fasciitis of right foot Confirmed Active Tightness of right gastrocnemius muscle Confirmed Active Results Radiology Reports * Exam Date Time Procedure Performing Provider Status 03/11/24 2:24 PM XR Foot Complete 3+ Views Right Arnulfo Polo (Verified) Notes: (XR Foot Complete 3+ Views Right) Reason For Exam: Right foot and heel pain XR Foot Complete 3+ Views Right EXAMINATION: XR Foot Complete 3+ Views Right [...] soft tissue air or foreign body detected. IMPRESSION: 1. Osteoarthropathy at scattered sites. 2. Flattened second metatarsal head resembles remote impaction injury or fracture. Thank you for letting us participate in the care of this patient. If you are a health care provider and have any questions regarding this report, please contact the number below. For patients who have questions please contact the health wound care rn that requested your imaging first. Electronically signed by: Gisell Blackwell MD, [facility] ([phone]), at 03/11/2024 3:51PM Final Dictated by: Bryan, Generated Dictated DT/TM: 03/11/2024 3:56 pm Signed by: Bryan, Generated Signed (Electronic Signature): 03/11/2024 2:07 pm Transcribed by: KARON Social History Social History Type Response Tobacco Former tobacco user Tobacco Use:. Sex Female Patient Care team information Care Team Personnel Name: Renzo Castano Position: No Access Member Role: Primary Care Physician Address: Address: [address] [place] [id number] [place] [address] Name: Marlys Forbes Position: Ambulatory - Lav Crewman Member Role: Lav Crewman Name: Vanessa Joseph Position: Ambulatory - Lav Crewman Member Role: Lav Crewman
--- OUTSIDE RECORDS SUMMARY | 2024-03-21 13:58 | XMS_ITS | Encounter Summary ---
[place] [address] Care Team Providers Care Scheduling Coordinator Name Role Phone Renzo Castano APRN Primary Care Provider +1- [phone] Encounter Details Date Type Department Care Team (Late st Contact Info) Description 02/26/2024 Telephone [place] [phone] Jennifer Evans Social History Tobacco Use Types Packs/Day Years Used Date Smoking Tobacco: Every Day Cigarettes Smokeless Tobacco: Never Alcohol Use Standard Drinks/Week Comments No 0 (1 standard drink = 0.6 oz pur e alcohol) [facility] Inpatient Questions Answer Date Recorded [...] on file documented as of this encounter Miscellaneous Notes * Telephone Encounter - Jennifer Evans - 02/26/2024 10:12 AM EDT Spoke with patient and he said that she will not be coming here and hung up on me. 02/26/2024 documented in this encounter Plan of Treatment Not on file documented as of this encounter Visit Diagnoses Not on filedocumented in this encounter Care Teams Scheduling Coordinator Relationship Specialty Start Date End Date Renzo Castano, XIMENA [address] [facility] [address] [place] [address] PCP - General Family Medicine 05/31/21 documented as of this encounter
--- OUTSIDE RECORDS SUMMARY | 2024-03-21 13:58 | XMS_ITS | Encounter Summary ---
[place] [address] Care Team Providers Care Inspector Golf Ball Name Role Phone Renzo Castano APRN Primary Care Provider +1- [phone] Encounter Details Date Type Department Care Team (Late st Contact Info) Description 05/31/2023 [place] [phone] Eva Robbins Social History Tobacco Use Types Packs/Day Years Used Date Smoking Tobacco: Every Day Cigarettes Smokeless Tobacco: Never Alcohol Use Standard Drinks/Week Comments No 0 (1 standard drink = 0.6 oz pur e alcohol) [facility] Inpatient Questions Answer Date Recorded [...] on filedocumented in this encounter Care Teams Inspector Golf Ball Relationship Specialty Start Date End Date Renzo Castano APRN [address] [place], [place] [address] PCP - General Family Medicine 05/31/21 documented as of this encounter
--- OUTSIDE RECORDS SUMMARY | 2024-03-21 13:58 | XMS_ITS | Clinical Summary ---
Author Organization [facility] Address [facility] [place] [address] Care Team Providers Care Rehab Trainer Name Role Phone Renzo Castano APRN Primary Care Provider [phone]- [phone] Allergies Active Allergy Reactions Criticality Noted Date Comments Adhesive Tape Rash Amoxicillin Nausea Only 08/27/2019 Azithromycin Shortness Of Breath High 08/27/2019 Promethazine Other (See Comments) 03/26/2023 Rizatriptan 08/27/2019 Sertraline 08/27/2019 Sulfamethoxazole 08/27/2019 Sulfamethoxazole-Trimethop rim 08/27/2019 Tramadol Nausea Only 08/27/2019 Trimethoprim 08/27/2019 Venlafaxine 08/27/2019 Wheat Bran Rash Wheat Flour Rash Wheat Germ Oil Rash Wheat Starch Rash Ondansetron Hcl 01/10/2023 I dont like it Medications Medication Sig Dispensed Refills Start Date End Date Status gabapentin (NEURONTIN) 300 mg capsule Take 1,500 mg by mouth daily. Active dapsone (ACZONE) 25 mg tablet Take 2 tablets by mouth 2 times daily. 120 tablet 5 05/30/2011 Active amitriptyline (ELAVIL) 10 mg tablet Take 20 mg by mouth nightly. Active metFORMIN (GLUCOPHAGE) 1,000 mg tablet Take 1,000 mg by mouth 2 times daily (with meals). Active HYDROcodone-aceta minophen (NORCO) 10-325 mg Tablet Take 1 tablet by mouth every 6 hours as needed for Pain. Active baclofen (LIORESAL) 10 mg Tablet Take 10 mg by mouth 2 times daily. Active ONETOUCH ULTRA TEST Strip TEST TWO TIMES A DAY 5 03/12/2017 Acti ve diphenoxylate-atr opine (LOMOTIL) 2.5-0.025 mg Tablet Take 1 tablet by mouth 4 times daily as needed. 06/12/2017 Active ONE TOUCH DELICA 33 gauge Misc TEST TWO TIMES A DAY 4 03/12/2017 A ctive magnesium oxide (MAG-OX) 400 mg (241.3 mg magnesium) Tablet 0 01/12/2019 Active omeprazole (PriLOSEC) 40 mg Capsule, Delayed Release(E.C.) TAKE ONE CAPSULE BY MOUTH AT BEDTIME 02/28/2021 Active clobetasoL (TEMOVATE) 0.05 % Solution Apply to pruritic areas and scalp on a nightly basis as needed 60 mL 3 05/31/2021 Active triamcinolone (Kenalog) 0.1 % Cream apply twice daily as needed for dermatitis herpetiformis 30 g 3 05/31/2021 Active Miscellaneous Medical Supply Misc 1 Units by Other route. 06/17/2009 Active ferrous gluconate (Ferate) 324 mg (37.5 mg iron) tablet Take 1 tablet by mouth three times a week (Mon, Weds, Fri). 60 tablet 3 04/04/2023 Active cholecalciferol, Vitamin D3, 50 mcg (2,000 unit) Capsule Take 1 capsule by mouth daily. 60 capsule 2 04/03/2023 Active calcium carbonate (CALCIUM 300 ORAL) Take by mouth. Active cyanocobalamin, Vitamin B-12, (Vitamin B-12) 1,000 mcg tablet Take 1 tablet by mouth daily. 90 tablet 3 05/28/2023 Active hydrocortisone 1 % Cream Apply topically 2 times daily. 30 g 05/27/2023 Active Active Problems Problem Noted Date Diagnosed Date Rash 05/22/2023 Leg edema, left 08/07/2017 Anticoagulated on warfarin 08/06/2017 Depressive disorder 08/06/2017 Gastroesophageal reflux disease 08/06/2017 Hyperlipidemia 08/06/2017 Migraine 08/06/2017 Obesity 08/06/2017 Smoker 08/06/2017 PAD (peripheral artery disease) 01/23/2017 Intermittent claudication 01/09/2017 Chronic deep vein thrombosis of left femoral vei n 01/09/2017 Tobacco dependence 01/09/2017 Non-intractable cyclical vomiting with nausea Bursitis of right shoulder 07/04/2016 Nocturnal leg cramps 07/04/2016 Ulnar neuropathy of left upper extremity 016 Spinal stenosis of lumbar region 09/21/2015 Medial epicondylitis of elbow, left 08/17/2015 Carpal tunnel syndrome of right wrist 08/03/2015 Diabetic peripheral neuropathy 08/03/2015 Diabetes 12/01/2013 Chronic pain disorder 05/23/2013 History of pulmonary embolism 05/15/2013 Dermatitis herpetiformis 03/14/2011 Neurodermatitis 03/14/2011 Celiac disease 08/20/2005 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 Protein C deficiency Right knee pain Encounters Date Type Department Care Team Description 03/11/2024 Interpretation Only [address] [id number] Jai Delgado, JAIME 02/26/2024 [place] [address] Jennifer Evans from Last 3 Months Immunizations Name Administration Dates Next Due TD Adult 08/30/2004 Family History Medical History Relation Comments Cancer Maternal Aunt Cancer Mother Diabetes Other Relation Status Comments Maternal Aunt Mother Other Social History Tobacco Use Types Packs/Day Years Used Date Smoking Tobacco: Every Day Cigarettes Smokeless Tobacco: Never Tobacco Cessation:Ready to Q uit: No; Counseling Given: No Alcohol Use Standard Drinks/Week Comments No 0 [...] on file Sexual Orientation Not on file Last Filed Vital Signs Vital Sign Reading Time Taken Comments Blood Pressure 139/71 05/27/2023 12:59 PM EDT Pulse 96 05/26/2023 11:57 PM EDT Temperature 36.4 ??C (97.5 ??F) 05/27/2023 12:59 PM E DT Respiratory Rate 18 05/27/2023 12:59 PM EDT Oxygen Saturation 96% 05/27/2023 12:59 PM EDT Inhaled Oxygen Concentration - - Weight 61.5 kg (135 lb 9.6 oz) 05/22/2023 8:53 P M EDT Height 157.5 cm (5' 2) 05/22/2023 8:53 PM EDT Body Mass Index 24.8 05/22/2023 8:53 PM EDT Plan of Treatment Health Maintenance Due Date Last Done Comments CT Colonography 1956 Colonoscopy 1956 Colorectal Cancer Screening 1956 FIT DNA 1956 FIT 1956 Sigmoidoscopy (10 year) with FIT yearly 1956 Sigmoidoscopy 1956 Pneumoccocal Vaccine: 65+ (1 of 2 - PCV) 1962 DM Opthalmology Exam 1966 DM Urine Microalbumin yearly 1966 Lipid Screening 1974 Tdap adult 01/01/1976 Breast Cancer Share Decision Needed 1996 Breast Cancer screening 1996 Zoster vaccine (1 of 2) 2006 Advance Directive 01/01/2012 Tetanus vaccine 08/30/2014 08/30/2004 Bone Density Scan 2021 Covid-19 Vaccine (1 - 2022-2 4 season) 2023 DM Hemoglobin A1c 6 month 09/12/2023 03/12/2023, 04/2019 Influenza (Flu) vaccine (1 o f 1 - Influenza standard series) 04/20/2024 DM Creatinine yearly 05/27/2024 05/27/2023, 05/26/2023, 05/25/2023, Additional history exists Hepatitis C Screening Completed 03/12/2023 Medical Devices Implanted Type Area Curing Room Worker Device Identifier Shelf Expiration Date Model / Serial / Lot Wallstent-10/01/2009 Implanted: 0 by Pelon Regan MD (Quantity not on file) Stent [employer] / / 18MM X 16MM Description:When MRI is perf ormed @ [facility] [place], the above Wallstent is MR Conditional up to 3 Margaret, when the following conditions are met: Through non-clinical testing, the WALLSTENT? ? RP Endoprosthesis stent has been shown to be MR conditional (poses no known hazards under specified conditions). It can be scanned safely in single and overlapped configurations up to 120 mm in length under the following conditions: Field strengths of 3 Margaret and 1.5 Margaret with. Static magnetic field gradient < 19 T/m, (1900 Gauss/cm) (extrapolated). A maximum whole body averaged specific absorption rate (KARL) of lower than 2.0 W/kg for a total active MR scan time (with RF exposure) of 15 minutes or less. The WALLSTENT RP Endoprosthesis stent should not migrate in this MRI environment. MR imaging within these conditions may be performed immediately following the implantation of the stent. This stent has not been evaluated to determine if it is MR Conditional beyond these conditions. Madeline GARCIA, [facility] [place] MRI Safety Technologist 11/26/2018 Procedures Procedure Name Priority Date/Time Associated Diagnosis Comments XR FOOT MIN 3 VIEWS RIGHT Routine 03/11/2024 2:24 PM EDT COMPREHENSIVE METABOLIC PANEL (NON-FASTING) Routine 05/27/2023 5:09 AM EDT HC HEPATITIS C ANTIBODY Routine 03/12/2023 11:56 AM EDT Calcinosis cutis HC HEMOGLOBIN A1C Routine 03/12/2023 11: 56 AM EDT Calcinosis cutis from Last 3 Months or Most Recently Relevant to Health Maintenance Results * XR Foot Min 3 views Right (Generic) (03/11/2024 2:24 PM EDT) PT CLASS O RAD ADMITDTTM [id number] RAD PT RAD INFO [id number]^Mcleod ^Jai^P RAD EXAM DESC [id number]^XR Foot Complete 3+ Views Right^RIS RAD WORKSTATION ID [id number] RAD Anatomical Region Laterality Modality Foot Right Radiographic [...] who have questions please contact the health child care coordinator that requested your imaging first. ? Electronically signed by: Gisell Blackwell MD, [facility] ([phone]), at 03/11/2024 3:51 PM Narrative 03/11/2024 3:51 PM EDT EXAMINATION: XR [...] patients who have questions please contactthe health child care coordinator that requested your imaging first. Electronically signed by: Gisell Blackwell MD, [facility]([phone]), at 03/11/2024 3:51 PM Jai Delgado DPM IMG DX ORDERABLES * (ABNORMAL) Comprehensive metabolic panel (non-fasting) (05/27/2023 5:09 AM EDT) Glucose Lvl 150 65 - 199 mg/dL [facility] Comment:Diabetes: >=200 mg/d L plus symptoms BUN 11 8 - 18 mg/dL [facility] Creatinine 0.89 0.70 - 1.20 mg/dL [facility] Sodium 127(L) 135 - 145 mmol/L [facility] Potassium 4.3 3.5 - 5.0 mmol/L [facility] Comment: Please note: ??Patients with WBC >100,000 may have falsely elevated Potassium levels. ??For accurate Potassium quantification in these patients send serum separator tube (gold top) for subsequent determinations. ??Contact the Clinical Chemistry Laboratory if there are any questions. Chloride 94(L) 98 - 107 mmol/L [facility] CO2 21(L) 22 - 31 mmol/L [facility] Anion Gap 12 5 - 15 mmol/L [facility] Calcium 9.4 8.5 - 10.5 mg/dL [facility] Total Protein 6.9 6.1 - 8.0 g/dL [facility] Albumin 3.8 3.2 - 5.2 g/dL [facility] AST 16 0 - 30 unit/L [facility] ALT 22 0 - 30 unit/L [facility] Alk Phos 125(H) 35 - 105 unit/L [facility] Total Bilirubin 0.6 0.2 - 1.3 mg/dL [facility] Estimated GFR 71 >=60 mL/min/1. 73 m?? [facility] Comment: This patient's estimated GFR was calculated using the 2020 CKD-EPI equation. The estimated GFR can vary from the measured GFR by up to 30% in the absence of rapidly changing kidney function. Assessment of the estimated GFR is not appropriate when creatinine concentrations are rapidly changing. For clinical situations in which a more precise estimate of GFR is necessary, consider alternative methods of GFR estimation such as a 24-hour urine creatinine clearance. Assignment of CKD stage 1-5 for patients with an eGFR near the transition point between stages may be based on clinical assessment of muscle mass and symptoms in addition to eGFR. Blood 05/27/2023 5:09 AM EDT 05/27/2023 5:40 AM EDT Narrative Resulting Agency Comment Spec In Lab Henrique Land MD CHEMISTRY ORDERABLES Performing Organization Address City/[facility]/ZIP Co de Phone Number [facility] [place] [address] * Hepatitis C Antibody (03/12/2023 11:56 AM EDT) Hepatitis C Ab Negative Negative [facility] Blood 03/12/2023 11:5 6 AM EDT 03/12/2023 12:07 PM EDT Narrative Resulting Agency Comment Spec In Lab Grant Leos MD IMMUNOLOGY ORDERABL ES Performing Organization Address City/[facility]/ZIP Co de Phone Number [facility] [place] [address] * Hemoglobin A1c (03/12/2023 11:56 AM EDT) Hemoglobin A1C 4.6 4.3 - 5.6 % [facility] Comment: Reference Range: 4.3 - 5.6% 5.7 - 6.4% - Increased Risk of Developing Diabetes Mellitus >= 6.5% - Consistent with diagnosis of Diabetes Mellitus In the absence of hyperglycemia (i.e. plasma glucose > 200 mg/dL) or classic symptoms of hyperglycemia a repeat measurement of HbA1c should be performed on a separate sample to confirm the diagnosis. Diagnosis and Classification of Diabetes Mellitus, Diabetes Care 2013; 36: Suppl. 1, S67-74 Est Avg Gluc 84 mg/dL [facility] Comment: eAG equivalents for HbA1c percentages: HbA1c(%) ?eAG(mg/dL) 6.0 ?126 6.5 ?140 7.0 ?154 7.5 ?169 8.0 ?183 8.5 ?197 9.0 ?212 9.5 ?226 10.0 ? 240 Limitations: The eAG calculation has not been validated on women, individuals below 18 years old and above 70 years old, and individuals with hemoglobinopathies. Additional resources are available on the ADA website. Ethan HAN, Fernandez J, Val R, et al. ??Translating the A1C assay into estimated average glucose values. ??Diabetes Care 2008:31(8):6668-0305. Blood 03/12/2023 11:5 6 AM EDT 03/12/2023 12:07 PM EDT Narrative Resulting Agency Comment Spec In Lab Grant Leos MD CHEMISTRY ORDERABLE S [facility] [place] [address] from Last 3 Months or Most Recently Relevant to Health Maintenance Advance Directives * Attempt Cardiopulmonary Resuscitation - Inpatient (Latest Code Status on File) Date Activated Date Inactivated Comments 05/22/2023 11:45 AM 05/27/2023 5:25 PM Question Answer Comments Code Status decision made by: Patient Care Teams Rehab Trainer Relationship Specialty Start Date End Date Renzo Castano, QUALITY ASSURANCE LAB TECHNICIAN [address] [place], [place] [id number] PCP - General Family Medicine 05/31/21
--- OUTSIDE RECORDS SUMMARY | 2024-03-21 13:58 | XMS_ITS | Encounter Summary ---
Author Organization [facility] Address [facility] [place] [address] Care Team Providers Care Pig Machine Operator Helper Name Role Phone Renzo Castano APRN Primary Care Provider +1- [phone] Reason for Visit * Reason Onset Date Comments Post Hospital Discharge 05/28/2023 Encounter Details Date Type Department Care Team (Late st Contact Info) Description 05/28/2023 [place] [phone] Marcia Calderon, RN Post Hospital Discharge Social History Tobacco Use Types Packs/Day Years [...] encounter Miscellaneous Notes * Telephone Encounter - Marcia Calderon, RN - 05/28/2023 1:53 PM EDT Called and spoke with patient's spouse who states that patient is currently laying down. He reportsthat patient refused to go to [facility] today as she was too tired to get lab work. He states he will do his best to get her there tomorrow. This RN encouraged him to do so as it is to check her Na+ level which had been low during her hospitalization. Spouse verbalized understanding. He states they were able to get all of her medications and she has been taking them as directed since discharge. He states that PCP office is closed today so he will call tomorrow to schedule a follow up appointment. He did mention that her wheelchair (bought used) doesn't work well and the breaks don't work. This RN encouraged him to mention this to PCP as they can help order a new one if needed. Denies any othercurrent questions or concerns at this time. Marcia Calderon, RN, MSN Nurse Clinician [facility] documented in this encounter Plan of Treatment Not on file documented as of this encounter Visit Diagnoses Not on filedocumented in this encounter Care Teams Pig Machine Operator Helper Relationship Specialty Start Date End Date Renzo Castano APRN [address] [place] [address] [address] [place] [address] PCP - General Family Medicine 05/31/21 documented as of this encounter
--- OUTSIDE RECORDS SUMMARY | 2024-03-21 13:58 | XMS_ITS | Continuity of Care Document ---
Author Organization [facility] Address [address] [place] [id number] Care Team Providers Care Manager Plant Name Role Phone ARASH LEONARDO Primary Care Physicia n Encounter LTTL_GA FIN NBR [id number] Date(s): 05/20/23 - 05/20/[address] [id number]- Encounter Diagnosis Allergic reaction(Discharge Diagnosis) - 05/20/23 Urticaria(Discharge Diagnosis) - 05/20/23 Discharge Disposition: Home or Self Care Attending Physician: Pb Lopes MD Admitting Physician: Pb Lopes MD Allergies, Adverse Reactions, Alerts Substance Reaction Severity Status amoxicillin Unknown Active Zofran Unknown Active Functional Status 05/20/23 Other exposure to Infectious Disease Non e Medications predniSONE 10 mg oral tablet See Instructions, 4 tabs x3 days, 3 tabs x3 days, 2 tabs x3 days, 1 tab x3 days then stop, # 30 tab, 0 Refill(s), 06/01/23 12:12:00 PM CDT, Pharmacy: [facility][id number], 157.48, cm, 05/20/23 11:11:00 EDT, Height/Length Dosing, 61.69, kg, 05/20/23 11:11:00 EDT, Weight Dosing Start Date: 05/20/23 Stop Date: 06/01/23 Status: Ordered Results Laboratory List Name Date Automated Diff 05/20/23 CBC w/ Diff 05/20/23 Comprehensive Metabolic Panel (CMP) 05/20 Most recent to oldest [Reference Range]: 1 WBC [4.8-10.8 K/mcL] 7.6 K/mcL (05/20/23 12:30 PM) RBC [4.20-5.40 Million/mcL] 3.56 Million /mcL *LOW* (05/20/23 12:30 PM) Neutro Auto [42.2-75.2 %] 87.3 % *HI* (05/20/23 12:30 PM) Lymph Auto [20.5-51.1 %] 9.8 % *LOW* (05/20/23 12:30 PM) Bosque Auto [1.7-9.3 %] 1.8 % (05/20/23 12:30 PM) Basophil Auto [0.0-0.8 %] 0.3 % (05/20/23 12:30 PM) BUN [8-26 mg/dL] 16 mg/dL (05/20/23 12:30 PM) Glucose Level [74-106 mg/dL] 163 mg/dL *HI* (05/20/23 12:30 PM) Potassium Level [3.5-5.1 mmol/L] 5.1 mmo l/L (05/20/23 12:30 PM) Baso Absolute [0.0-0.2 K/mcL] 0.0 K/mcL (05/20/23 12:30 PM) MCV [81.0-99.0 fL] 92.7 fL (05/20/23 12:30 PM) AST [15-41 IntlUnit/L] 20 IntlUnit/L (05/20/23 12:30 PM) ALT [14-54 IntlUnit/L] 20 IntlUnit/L (05/20/23 12:30 PM) MCHC [32.0-36.0 g/dL] 32.7 g/dL (05/20/23 12:30 PM) Osmolality [275-295 mOsm/kg] 264 mOsm/kg *LOW* (05/20/23 12:30 PM) Sodium Level [134-143 mmol/L] 129 mmol/L *LOW* (05/20/23 12:30 PM) Lymph Absolute [1.2-3.4 K/mcL] 0.8 K/mcL *LOW* (05/20/23 12:30 PM) Hct [37.0-47.0 %] 33.0 % *LOW* (05/20/23 12:30 PM) Calcium Level [8.9-10.3 mg/dL] 9.2 mg/dL (05/20/23 12:30 PM) Bosque Absolute [0.1-0.6 K/mcL] 0.1 K/mcL (05/20/23 12:30 PM) Albumin Level [3.5-5.0 g/dL] 3.4 g/dL *LOW* (05/20/23 12:30 PM) Protein Total [6.5-8.1 g/dL] 7.8 g/dL (05/20/23 12:30 PM) MCH [27.0-31.0 pg] 30.3 pg (05/20/23 12:30 PM) Neutro Absolute [1.4-6.5 K/mcL] 6.7 K/mc L *HI* (05/20/23 12:30 PM) Bilirubin Total [0.2-1.2 mg/dL] 0.6 mg/d L (05/20/23 12:30 PM) Hgb [12.0-16.0 g/dL] 10.8 g/dL *LOW* (05/20/23 12:30 PM) Alk Phos [38-130 IntlUnit/L] 121 IntlUni t/L (05/20/23 12:30 PM) MPV [7.4-10.4 fL] 9.9 fL (05/20/23 12:30 PM) Platelets [130-400 K/mcL] 190 K/mcL (05/20/23 12:30 PM) CO2 [22-32 mmol/L] 23 mmol/L (05/20/23 12:30 PM) Eos Absolute [0.0-0.2 K/mcL] 0.0 K/mcL (05/20/23 12:30 PM) Chloride Level [98-111 mmol/L] 96 mmol/L *LOW* (05/20/23 12:30 PM) RDW-CV [11.5-14.5 %] 14.5 % (05/20/23 12:30 PM) A/G Ratio [1.0-2.5 g/dL] 0.8 g/dL *LOW* (05/20/23 12:30 PM) BUN/Creat Ratio [8.0-20.0] 14.8 (05/20/23 12:30 PM) Globulin [2.3-3.5 g/dL] 4.4 g/dL *HI* (05/20/23 12:30 PM) Imm Gran Absolute [0.00-0.02 K/mcL] 0.04 K/mcL *HI* (05/20/23 12:30 PM) Imm Gran Auto [0.0-0.5 %] 0.5 % (05/20/23 12:30 PM) Slide Review Not Indicated (05/20/23 12:30 PM) Creatinine Level [0.44-1.00 mg/dL] 1.08 mg/dL *HI* (05/20/23 12:30 PM) Anion Gap [3.0-12.0] 10.0 (05/20/23 12:30 PM) Eos, Auto [0.00-3.00 %] 0.30 % (05/20/23 12:30 PM) eGFR CKD-EPI [>=60 mL/min/1.73 m2] 57 mL /min/1.73 m2 *LOW* (05/20/23 12:30 PM) Vital Signs Most recent to oldest [Reference Range]: 1 2 Temperature Temporal Artery [36-38 Deg C ] 36.9 Deg C (05/20/23 10:51 AM) Peripheral Pulse Rate [60-100 bpm] 90 bp m (05/20/23 1:19 PM) 104 bpm *HI* (05/20/23 10:51 AM) Respiratory Rate [12-24 br/min] 16 br/mi n (05/20/23 10:51 AM) Blood Pressure [90-140/60-90 mmHg] 155/7 0mmHg *HI* (05/20/23 10:51 AM) Weight 61.69 kg (05/20/23 10:51 AM) Weight Dosing 61.69 kg (05/20/23 11:11 AM) Height 157.480 cm (05/20/23 10:51 AM) Height/Length Dosing 157.480 cm (05/20/23 11:11 AM) Body Mass Index 25.000 kg/m2 (05/20/23 10:51 AM) Social History Social History Type Response Tobacco Current everyday tob acco user Tobacco Use:. Sex Hospital Discharge Instructions Patient Education 05/20/2023 12:12:54 Rash, Adult Rash, Adult A rash is a change in the color of your skin. A rash can also change the way your skin feels. Thereare many different conditions and factors that can cause a rash. Some rashes may disappear after a few days, but some may last for a few weeks. Common causes of rashes include: ??? Viral infections, such as: ??? Colds. ??? Measles. ??? Hand, foot, and mouth disease. ??? Bacterial infections, such as: ??? Scarlet fever. ??? Impetigo. ??? Fungal infections, such as Oanh. ??? Allergic reactions to food, medicines, or skin care products. Follow these instructions at home: The goal of treatment is to stop the itching and keep the rash from spreading. Pay attention to anychanges in your symptoms. Follow these instructions to help with your condition: Medicine Take or apply nidn-xoe-ugzgfld and prescription medicines only as told by your health care provider. These may include: ??? Corticosteroid creams to treat red or swollen skin. ??? Anti-itch lotions. ??? Oral allergy medicines (antihistamines). ??? Oral corticosteroids for severe symptoms. Skin care ??? Apply cool compresses to the affected areas. ??? Do not scratch or rub your skin. ??? Avoid covering the rash. Make sure the rash is exposed to air as much as possible. Managing itching and discomfort ??? Avoid hot showers or baths, which can make itching worse. A cold shower may help. ??? Try taking a bath with: ??? Epsom salts. Follow ships equipment engineer instructions on the packaging. You can get these at your localpharmacy or grocery store. ??? Baking soda. Pour a small amount into the bath as told by your health care provider. ??? Colloidal oatmeal. Follow ships equipment engineer instructions on the packaging. You can get this at your local pharmacy or grocery store. ??? Try applying baking soda paste to your skin. Stir water into baking soda until it reaches a paste-like consistency. ??? Try applying calamine lotion. This is an bxhq-wfc-sgfiyub lotion that helps to relieve itchiness. ??? Keep cool and out of the sun. Sweating and being hot can make itching worse. General instructions ??? Rest as needed. ??? Drink enough fluid to keep your urine pale yellow. ??? Wear loose-fitting clothing. ??? Avoid scented soaps, detergents, and perfumes. Use gentle soaps, detergents, perfumes, and other cosmetic products. ??? Avoid any substance that causes your rash. Keep a journal to help track what causes your rash. Write down: ??? What you eat. ??? What cosmetic products you use. ??? What you drink. ??? What you wear. This includes jewelry. ??? Keep all follow-up visits as told by your health care provider. This is important. Contact a health care provider if: ??? You sweat at night. ??? You lose weight. ??? You urinate more than normal. ??? You urinate less than normal, or you notice that your urine is a darker color than usual. ??? You feel weak. ??? You vomit. ??? Your skin or the whites of your eyes look yellow (jaundice). ??? Your skin: ??? Tingles. ??? Is numb. ??? Your rash: ??? Does not go away after several days. ??? Gets worse. ??? You are: ??? Unusually thirsty. ??? More tired than normal. ??? You have: ??? New symptoms. ??? Pain in your abdomen. ??? A fever. ??? Diarrhea. Get help right away if you: ??? Have a fever and your symptoms suddenly get worse. ??? Develop confusion. ??? Have a severe headache or a stiff neck. ??? Have severe joint pains or stiffness. ??? Have a seizure. ??? Develop a rash that covers all or most of your body. The rash may or may not be painful. ??? Develop blisters that: ??? Are on top of the rash. ??? Grow larger or grow together. ??? Are painful. ??? Are inside your nose or mouth. ??? Develop a rash that: ??? Looks like purple pinprick-sized spots all over your body. ??? Has a bull's eye or looks like a target. ??? Is not related to sun exposure, is red and painful, and causes your skin to peel. Summary ??? A rash is a change in the color of your skin. Some rashes disappear after a few days, but some may last for a few weeks. ??? The goal of treatment is to stop the itching and keep the rash from spreading. ??? Take or apply lxpf-abx-nwlpvnr and prescription medicines only as told by your health care provider. ??? Contact a health care provider if you have new or worsening symptoms. ??? Keep all follow-up visits as told by your health care provider. This is important. This information is not intended to replace advice given to you by your health care provider. Make sure you discuss any questions you have with your health care provider. Document Revised: 05/18/2022 Document Reviewed: 05/18/2022 [employer] Patient Education ?? 2022 [employer]. 05/20/2023 12:12:52 Drug Rash Drug Rash A drug rash occurs when a medicine causes a change in the color or texture of the skin. It can develop minutes, hours, or days after you take the medicine. The rash may appear on a small area of skinor all over your body. What are the causes? This condition may be caused by one of these three conditions: ??? An allergic reaction to the medicine. ??? An unwanted side effect of a certain medicine. ??? Extreme sensitivity to sunlight caused by the medicine. What increases the risk? If you take any of these medicines that make your skin sensitive to light and are exposed to sunlight, it can make you more likely to develop this condition: ??? Antibiotics, including tetracyclines and sulfa medicines. ??? Antifungals. ??? Antihistamines. ??? Diuretics. ??? Retinoids, such as isotretinoin. ??? Statins. ??? NSAIDs. What are the signs or symptoms? Symptoms of this condition include: ??? Redness. ??? Tiny bumps. ??? Peeling. ??? Itching. ??? Itchy welts (hives). ??? Swelling. How is this diagnosed? This condition may be diagnosed based on: ??? A physical exam. ??? Tests to find out which medicine caused the rash. These tests may include: ??? Skin tests. ??? Blood tests. How is this treated? This condition is treated with medicines, including: ??? Antihistamine. This may be given to relieve itching. ??? NSAIDs. These may be given to reduce swelling and to treat pain. ??? A steroid medicine. This may be given to reduce swelling. The rash usually goes away when you stop taking the medicine that caused it. Follow these instructions at home: ??? Take yqvx-zya-krljhcd and prescription medicines only as told by your health care provider. ??? Tell all your health care providers about any medicine reactions that you have had in the past. ??? If your rash was caused by sensitivity to sunlight, and while your rash is healing: ??? Avoid being in the sun if possible, especially when it is strongest, usually between 10 a.m. and 4 p.m. ??? Cover your skin with pants, long sleeves, and a hat when you are exposed to sunlight. ??? If you have hives: ??? Take a cool shower or use a cool compress to relieve itchiness. ??? Take cirf-dic-ipyvqzt antihistamines, as recommended by your health care provider, until the hives are gone. Hives are not contagious. ??? Keep all follow-up visits. This is important. Contact a health care provider if: ??? You have fever. ??? Your rash is not going away. ??? Your rash gets worse. ??? Your rash comes back. ??? You have high-pitched whistling sounds when you breathe, most often when you breathe out (wheezing) or coughing. Get help right away if: ??? You start to have breathing problems. ??? You start to have shortness of breath. ??? Your face or throat starts to swell. ??? You have severe weakness with dizziness or fainting. ??? You have chest pain. ??? Your skin starts to blister and peel. These symptoms may represent a serious problem that is an emergency. Do not wait to see if the symptoms will go away. Get medical help right away. Call your local emergency services (911 in the [place] Do not drive yourself to the hospital. Summary ??? A drug rash occurs when a medicine causes a change in the color or texture of the skin. The rash may appear on a small area of skin or all over your body. ??? It can develop minutes, hours, or days after you take the medicine. ??? Your health care provider will do various tests to determine what medicine caused your rash. ??? The rash may be treated with medicine to relieve itching, swelling, and pain. This information is not intended to replace advice given to you by your health care provider. Make sure you discuss any questions you have with your health care provider. Document Revised: 01/16/2022 Document Reviewed: 01/16/2022 [employer] Patient Education ?? 2022 [employer]. Follow Up Care 05/20/2023 10:51:04 With:Follow-up with your primary care Address: When:1 week Comments:Follow-up with your primary care as needed, they will be able to reevaluate if necessaryReturn to ED if concerns Physician Emergency department Note * [facility]: PERFORM Event Display: ED Note Physician Authored Date: [id number] ENDER KURTZ :1955 Age:67 years Sex:Female Visit Date:05/20/2023 Primary Care Physician: ARASH LEONARDO Basic Information Time Seen: [facility] / 05/20/2023 10:58 Chief Complaint Pt states she had contrast for a CT scan - IV and the drink on . Sunday had N/V. Yesterday developed an itchy, painful rash all over body. States she has never had the oral contrast before. History Of Present Illness: Patient is a 67-year-old female who 2 days ago had??a CT scan involving IV and oral contrast.?? After??this??intervention she began to have some??irritation to her upper arms??and??this has spread tothe upper arms chest face and lower extremities.?? Is mildly tender but more irritated and??itchy. Patient was seen at [facility] this morning??and was diagnosed with urticaria due to drug reaction and placed on cetirizine. At this time patient did not feel as though this medication that she was given in the emergency department??gave her any relief and she comes to our emergency department for reevaluation. Review of Systems: See HPI Physical Exam Vitals & Measurements T:??36.9?C ??(Temporal Artery)?? HR:??90??(Peripheral)?? RR:??16?? BP:??155/70?? SpO2:??93%?? HT:??157.480??cm?? WT:??61.69??kg?? BMI:??25.000?? O2 Therapy:??Room air?? Patient alert oriented age-appropriate well-nourished nontoxic Normocephalic atraumatic Neck supple nontender EOM intact, PERRLA, sclera nonicteric Clear to auscultation bilaterally Regular rate and rhythm no murmurs Neuro exam intact without focal deficit Skin reveals urticaria throughout??upper and lower extremities??with the worst being on the posterior aspect of the upper extremities as well as posterior thighs??there is some in the abdomen as wellas??neck and face. Appropriate mood and affect Medical Decision Making: While in the emergency department patient was evaluated with laboratory evaluation which is reported as below. ??She is given methylprednisolone??and will be discharged Procedure No Qualifying Data Assessment/Plan 1.??Allergic reaction??T78.40XA Laboratory evaluation did not reveal any acute findings and I do not feel that she has any respiratory distress or concern.?? She will be discharged to be on prednisone over the next 12 days and if there is any question concerns or new symptoms she will return for reevaluation. 2.??Urticaria??L50.9 Orders: predniSONE 10 mg oral tablet, See Instructions, 4 tabs x3 days, 3 tabs x3 days, 2 tabs x3 days, 1 tab x3 days then stop, # 30 tab, 0 Refill(s), 06/01/23 13:12:00 EDT, Pharmacy: [facility] #[id number], 157.48, cm, 05/20/23 11:11:00 EDT, Height/Length Dosing, 61.69, kg, 05/20/23 11:11:00... Patient Education Rash, Adult Drug Rash Follow Up With When Contact Information Follow-up with your primary care Within 1 week Additional Instructions: Follow-up with your primary care as needed, they will be able to reevaluate if necessary Return to ED if concerns Medication Reconciliation New Prescription predniSONE (predniSONE 10 mg oral tablet)4 tabs x3 days, 3 tabs x3 days, 2 tabs x3 days, 1 tab x3 days then stop. Refills: 0. Problem List/Past Medical History Ongoing No qualifying data Historical No qualifying data Medication Administration Given methylPREDNISolone, 125 mg, IV Allergies Zofran amoxicillin Social History Electronic Cigarette/Vaping Electronic Cigarette Use: Never. Tobacco Current everyday tobacco user Tobacco Use:. Lab Results CBC and Differential?? LATEST RESULTS?? WBC?? 05/20/23 12:30?? 7.6?? RBC?? 05/20/23 12:30?? 3.56 ??Low?? Hgb?? 05/20/23 12:30?? 10.8 ??Low?? Hct?? 05/20/23 12:30?? 33.0 ??Low?? MCV?? 05/20/23 12:30?? 92.7?? MCH?? 05/20/23 12:30?? 30.3?? MCHC?? 05/20/23 12:30?? 32.7?? RDW-CV?? 05/20/23 12:30?? 14.5?? Platelets?? 05/20/23 12:30?? 190?? MPV?? 05/20/23 12:30?? 9.9?? Neutro Auto?? 05/20/23 12:30?? 87.3 ??High?? Lymph Auto?? 05/20/23 12:30?? 9.8 ??Low?? Bosque Auto?? 05/20/23 12:30?? 1.8?? Eos, Auto?? 05/20/23 12:30?? 0.30?? Basophil Auto?? 05/20/23 12:30?? 0.3?? Imm Gran Auto?? 05/20/23 12:30?? 0.5?? Neutro Absolute?? 05/20/23 12:30?? 6.7 ??High?? Lymph Absolute?? 05/20/23 12:30?? 0.8 ??Low?? [place]que Absolute?? 05/20/23 12:30?? 0.1?? Eos Absolute?? 05/20/23 12:30?? 0.0?? Baso Absolute?? 05/20/23 12:30?? 0.0?? Imm Gran Absolute?? 05/20/23 12:30?? 0.04 ??High?? Slide Review?? 05/20/23 12:30?? Not Indicated? Routine Chemistry?? LATEST RESULTS?? Sodium Level?? 05/20/23 12:30?? 129 ??Low?? Potassium Level?? 05/20/23 12:30?? 5.1?? Chloride Level?? 05/20/23 12:30?? 96 ??Low?? CO2?? 05/20/23 12:30?? 23?? Alk Phos?? 05/20/23 12:30?? 121?? AST?? 05/20/23 12:30?? 20?? ALT?? 05/20/23 12:30?? 20?? BUN?? 05/20/23 12:30?? 16?? Glucose Level?? 05/20/23 12:30?? 163 ??High?? Creatinine Level?? 05/20/23 12:30?? 1.08 ??High?? BUN/Creat Ratio?? 05/20/23 12:30?? 14.8?? eGFR CKD-EPI?? 05/20/23 12:30?? 57 ??Low?? Calcium Level?? 05/20/23 12:30?? 9.2?? Protein Total?? 05/20/23 12:30?? 7.8?? Albumin Level?? 05/20/23 12:30?? 3.4 ??Low?? Globulin?? 05/20/23 12:30?? 4.4 ??High?? A/G Ratio?? 05/20/23 12:30?? 0.8 ??Low?? Bilirubin Total?? 05/20/23 12:30?? 0.6?? Anion Gap?? 05/20/23 12:30?? 10.0?? Osmolality?? 05/20/23 12:30?? 264 ??Low? Electronically Signed on 05/20/23 07:13 PM [facility] Emergency department Discharge instructions * [facility]: PERFORM Event Display: ED Discharge Information Authored Date: [id number] ENDER KURTZ :1955 Age:67 years Sex:Female Visit Date:05/20/2023 Primary Care Physician: ARASH LEONARDO Discharge Instructions We would like to thank you for allowing us to assist you with your healthcare needs. The following includes patient education materials and information regarding your injury/illness. Diagnosis from Today's Visit Allergic reaction Urticaria Discharge Vitals Temperature??(Temporal Artery) 98.4 ??F (36.9 ??C) Heart Rate??(Peripheral) 104 Respiratory Rate?? 16 Blood Pressure?? 155/70?? Height?? 62.00 in (157.480 cm) Weight?? 136.03 lb (61.69 kg) BMI?? 25.000 Allergies Zofran amoxicillin What to Do Next Instructions from Your Care Team Take medication as prescribed, your prednisone should reduce this over the next 12 to 24 hours as discussed Follow with your primary care for any questions or concerns Consider not taking oral??contrast in the future You Need to Schedule the Following Appointments Follow Up with??Follow-up with your primary care When:??Within 1 week Why: Follow-up with your primary care as needed, they will be able to reevaluate if necessary Return to ED if concerns You were treated today on an emergency basis; it may be nolasco to contact your primary care provider to notify them of your visit today. You may have been referred to your regular doctor or a specialist, please follow up as instructed. If your condition worsens or you can't get in to see the doctor, contact the Emergency Department. Medications What How Much When Instructions Next Dose New predniSONE (predniSONE 10 mg oral tablet) See instructions 4 tabs x3 days, 3 tabs x3 days, 2 tabs x3 days, ??1 tab x3 days then stop ?? Pickup at [facility] Pharmacy Information [facility] #[facility]: [address], [place] [id number] [phone] Education Materials Rash, Adult A rash is a change in the color of your skin. A rash can also change the way your skin feels. Thereare many different conditions and factors that can cause a rash. Some rashes may disappear after a few days, but some may last for a few weeks. Common causes of rashes include: ? Viral infections, such as: ? Colds. ? Measles. ? Hand, foot, and mouth disease. ? Bacterial infections, such as: ? Scarlet fever. ? Impetigo. ? Fungal infections, such as Oanh. ? Allergic reactions to food, medicines, or skin care products. Follow these instructions at home: The goal of treatment is to stop the itching and keep the rash from spreading. Pay attention to anychanges in your symptoms. Follow these instructions to help with your condition: Medicine Take or apply mide-mdj-dywsone and prescription medicines only as told by your health care provider. These may include: ? Corticosteroid creams to treat red or swollen skin. ? Anti-itch lotions. ? Oral allergy medicines (antihistamines). ? Oral corticosteroids for severe symptoms. Skin care ? Apply cool compresses to the affected areas. ? Do not scratch or rub your skin. ? Avoid covering the rash. Make sure the rash is exposed to air as much as possible. Managing itching and discomfort ? Avoid hot showers or baths, which can make itching worse. A cold shower may help. ? Try taking a bath with: ? Epsom salts. Follow ships equipment engineer instructions on the packaging. You can get these at your local pharmacy or grocery store. ? Baking soda. Pour a small amount into the bath as told by your health care provider. ? Colloidal oatmeal. Follow ships equipment engineer instructions on the packaging. You can get this at your local pharmacy or grocery store. ? Try applying baking soda paste to your skin. Stir water into baking soda until it reaches a paste-like consistency. ? Try applying calamine lotion. This is an uaze-lfe-jvvsqkz lotion that helps to relieve itchiness. ? Keep cool and out of the sun. Sweating and being hot can make itching worse. General instructions ? Rest as needed. ? Drink enough fluid to keep your urine pale yellow. ? Wear loose-fitting clothing. ? Avoid scented soaps, detergents, and perfumes. Use gentle soaps, detergents, perfumes, and other cosmetic products. ? Avoid any substance that causes your rash. Keep a journal to help track what causes your rash. Write down: ? What you eat. ? What cosmetic products you use. ? What you drink. ? What you wear. This includes jewelry. ? Keep all follow-up visits as told by your health care provider. This is important. Contact a health care provider if: ? You sweat at night. ? You lose weight. ? You urinate more than normal. ? You urinate less than normal, or you notice that your urine is a darker color than usual. ? You feel weak. ? You vomit. ? Your skin or the whites of your eyes look yellow (jaundice). ? Your skin: ? Tingles. ? Is numb. ? Your rash: ? Does not go away after several days. ? Gets worse. ? You are: ? Unusually thirsty. ? More tired than normal. ? You have: ? New symptoms. ? Pain in your abdomen. ? A fever. ? Diarrhea. Get help right away if you: ? Have a fever and your symptoms suddenly get worse. ? Develop confusion. ? Have a severe headache or a stiff neck. ? Have severe joint pains or stiffness. ? Have a seizure. ? Develop a rash that covers all or most of your body. The rash may or may not be painful. ? Develop blisters that: ? Are on top of the rash. ? Grow larger or grow together. ? Are painful. ? Are inside your nose or mouth. ? Develop a rash that: ? Looks like purple pinprick-sized spots all over your body. ? Has a bull's eye or looks like a target. ? Is not related to sun exposure, is red and painful, and causes your skin to peel. Summary ? A rash is a change in the color of your skin. Some rashes disappear after a few days, but some may last for a few weeks. ? The goal of treatment is to stop the itching and keep the rash from spreading. ? Take or apply ptsh-wxn-hqewkkp and prescription medicines only as told by your health care provider. ? Contact a health care provider if you have new or worsening symptoms. ? Keep all follow-up visits as told by your health care provider. This is important. This information is not intended to replace advice given to you by your health care provider. Make sure you discuss any questions you have with your health care provider. Document Revised: 05/18/2022 Document Reviewed: 05/18/2022 [employer] Patient Education ?? 2022 [employer] Drug Rash A drug rash occurs when a medicine causes a change in the color or texture of the skin. It can develop minutes, hours, or days after you take the medicine. The rash may appear on a small area of skinor all over your body. What are the causes? This condition may be caused by one of these three conditions: ? An allergic reaction to the medicine. ? An unwanted side effect of a certain medicine. ? Extreme sensitivity to sunlight caused by the medicine. What increases the risk? If you take any of these medicines that make your skin sensitive to light and are exposed to sunlight, it can make you more likely to develop this condition: ? Antibiotics, including tetracyclines and sulfa medicines. ? Antifungals. ? Antihistamines. ? Diuretics. ? Retinoids, such as isotretinoin. ? Statins. ? NSAIDs. What are the signs or symptoms? Symptoms of this condition include: ? Redness. ? Tiny bumps. ? Peeling. ? Itching. ? Itchy welts (hives). ? Swelling. How is this diagnosed? This condition may be diagnosed based on: ? A physical exam. ? Tests to find out which medicine caused the rash. These tests may include: ? Skin tests. ? Blood tests. How is this treated? This condition is treated with medicines, including: ? Antihistamine. This may be given to relieve itching. ? NSAIDs. These may be given to reduce swelling and to treat pain. ? A steroid medicine. This may be given to reduce swelling. The rash usually goes away when you stop taking the medicine that caused it. Follow these instructions at home: ? Take totw-jbx-aznzjhf and prescription medicines only as told by your health care provider. ? Tell all your health care providers about any medicine reactions that you have had in the past. ? If your rash was caused by sensitivity to sunlight, and while your rash is healing: ? Avoid being in the sun if possible, especially when it is strongest, usually between 10 a.m. and 4 p.m. ? Cover your skin with pants, long sleeves, and a hat when you are exposed to sunlight. ? If you have hives: ? Take a cool shower or use a cool compress to relieve itchiness. ? Take rprp-zey-qocxfia antihistamines, as recommended by your health care provider, until the hives are gone. Hives are not contagious. ? Keep all follow-up visits. This is important. Contact a health care provider if: ? You have fever. ? Your rash is not going away. ? Your rash gets worse. ? Your rash comes back. ? You have high-pitched whistling sounds when you breathe, most often when you breathe out (wheezing)or coughing. Get help right away if: ? You start to have breathing problems. ? You start to have shortness of breath. ? Your face or throat starts to swell. ? You have severe weakness with dizziness or fainting. ? You have chest pain. ? Your skin starts to blister and peel. These symptoms may represent a serious problem that is an emergency. Do not wait to see if the symptoms will go away. Get medical help right away. Call your local emergency services (911 in the [place] Do not drive yourself to the hospital. Summary ? A drug rash occurs when a medicine causes a change in the color or texture of the skin. The rash may appear on a small area of skin or all over your body. ? It can develop minutes, hours, or days after you take the medicine. ? Your health care provider will do various tests to determine what medicine caused your rash. ? The rash may be treated with medicine to relieve itching, swelling, and pain. This information is not intended to replace advice given to you by your health care provider. Make sure you discuss any questions you have with your health care provider. Document Revised: 01/16/2022 Document Reviewed: 01/16/2022 [employer] Patient Education ?? 2022 [employer] Tests Performed Medications and Immunizations Administered Given methylPREDNISolone, 125 mg, IV Lab Test Name Test Result Date/Time WBC 7.6 K/mcL 05/20/2023 12:30 EDT RBC 3.56 Million/mcL 05/20/2023 12:30 EDT Hgb 10.8 g/dL 05/20/2023 12:30 EDT Hct 33.0 % 05/20/2023 12:30 EDT MCV 92.7 fL 05/20/2023 12:30 EDT MCH 30.3 pg 05/20/2023 12:30 EDT MCHC 32.7 g/dL 05/20/2023 12:30 EDT RDW-CV 14.5 % 05/20/2023 12:30 EDT Platelets 190 K/mcL 05/20/2023 12:30 EDT MPV 9.9 fL 05/20/2023 12:30 EDT Neutro Auto 87.3 % 05/20/2023 12:30 EDT Lymph Auto 9.8 % 05/20/2023 12:30 EDT Bosque Auto 1.8 % 05/20/2023 12:30 EDT Eos, Auto 0.30 % 05/20/2023 12:30 EDT Basophil Auto 0.3 % 05/20/2023 12:30 EDT Imm Gran Auto 0.5 % 05/20/2023 12:30 EDT Neutro Absolute 6.7 K/mcL 05/20/2023 12:30 EDT Lymph Absolute 0.8 K/mcL 05/20/2023 12:30 EDT Bosque Absolute 0.1 K/mcL 05/20/2023 12:30 EDT Eos Absolute 0.0 K/mcL 05/20/2023 12:30 EDT Baso Absolute 0.0 K/mcL 05/20/2023 12:30 EDT Imm Gran Absolute 0.04 K/mcL 05/20/2023 12:30 EDT Slide Review Not Indicated 05/20/2023 12:30 EDT Sodium Level 129 mmol/L 05/20/2023 12:30 EDT Potassium Level 5.1 mmol/L 05/20/2023 12:30 EDT Chloride Level 96 mmol/L 05/20/2023 12:30 EDT CO2 23 mmol/L 05/20/2023 12:30 EDT Alk Phos 121 IntlUnit/L 05/20/2023 12:30 EDT AST 20 IntlUnit/L 05/20/2023 12:30 EDT ALT 20 IntlUnit/L 05/20/2023 12:30 EDT BUN 16 mg/dL 05/20/2023 12:30 EDT Glucose Level 163 mg/dL 05/20/2023 12:30 EDT Creatinine Level 1.08 mg/dL 05/20/2023 12:30 EDT BUN/Creat Ratio 14.8 05/20/2023 12:30 EDT eGFR CKD-EPI 57 mL/min/1.73 m2 05/20/2023 12:30 EDT Calcium Level 9.2 mg/dL 05/20/2023 12:30 EDT Protein Total 7.8 g/dL 05/20/2023 12:30 EDT Albumin Level 3.4 g/dL 05/20/2023 12:30 EDT Globulin 4.4 g/dL 05/20/2023 12:30 EDT A/G Ratio 0.8 g/dL 05/20/2023 12:30 EDT Bilirubin Total 0.6 mg/dL 05/20/2023 12:30 EDT Anion Gap 10.0 05/20/2023 12:30 EDT Osmolality 264 mOsm/kg 05/20/2023 12:30 EDT Patient/Claims Adjuster Crop Signature Patient Name:ENDER KURTZ I have received this information and my questions have been answered. Patient/Claims Adjuster Crop Name: Patient/Claims Adjuster Crop Signature: Relationship to Patient: Witness Name/Signature: Date: Electronically Signed on: 05/20/2023 13:13 EDTSigned by: Patient Care team information Care Team Personnel Name: ARASH LEONARDO Position: No Access Member Role: Primary Care Physician Address: Address: [address] [place] [phone] [place] Name: LD Rivers Position: Physician Member Role: Physician Surface Grinder Address: Address: [address] [place] [id number] Name: Sea Caldera Position: Nurse Member Role: ED Nurse Care Team Related Persons Name: HALIE KURTZ
--- OUTSIDE RECORDS SUMMARY | 2024-03-21 13:58 | XMS_ITS | Encounter Summary ---
Author Organization [facility] Address [facility] [place] [address] Care Team Providers Care Tire Wrapper Name Role Phone Renzo Castano APRN Primary Care Provider +1- [phone] Encounter Details Date Type Department Care Team (Late st Contact Info) Description 05/29/2023 Telephone Dermatology at [facility] [address] [place] [address] Franny Rojas MD [facility] [place] [address] Social History Tobacco Use Types Packs/Day Years Used Date Smoking Tobacco: Every Day Cigarettes Smokeless Tobacco: Never Alcohol Use Standard Drinks/Week Comments No 0 (1 standard drink = 0.6 oz pur e alcohol) DH IPV Inpatient Questions Answer Date Recorded Does [...] encounter Miscellaneous Notes * Telephone Encounter - Linn Guy - 05/29/2023 3:55 PM EDT I called Janna Junior to schedule her for a follow up in the Dermatology/Rheumatology clinic.Her answered the call and began saying that 'someone over there messed up' and began sayingthat the patient was supposed to have testing done and the doctors 'were not very nice' and stated t hat 'they accused him of not bringing her to her testing yesterday'. I tried to inform him that I was calling from [facility] for the Dermatology Rheumatology clinic as she was referred by Dr. Crawford. He then stated that 'we are not very happy with Dr. Crawford, he ordered an infusion for her with wheat in it and she is celiac and is now very sick. I then asked him if they would like to schedule their follow up with Dr. Rojas and Dr. Cleaning and he declined stating that they 'will find doctors closer to home'. documented in this encounter Plan of Treatment Not on file documented as of this encounter Visit Diagnoses Not on filedocumented in this encounter Care Teams Tire Wrapper Relationship Specialty Start Date End Date Renzo Castano, ATHLETE MANAGER [address] [place] [address] PCP - General Family Medicine 05/31/21 documented as of this encounter
--- OUTSIDE RECORDS SUMMARY | 2024-03-21 13:59 | XMS_ITS | Encounter Summary ---
Author Organization [facility] Address [facility] [place] [address] Care Team Providers Care Infant Nanny Name Role Phone Renzo Castano APRN Primary Care Provider +1- [phone] Encounter Details Date Type Department Care Team (Latest Contact Info) Description 03/12/2023 1:29 PM EDT - 03/12/2023 11:59 PM EDT Hospital Encounter XRay at [address] [place] [address] Grant Leos MD [facility] [place] [address] Osteopenia, unspecified location Discharge Disposition: Home Social History Tobacco Use Types Packs/Day Years Used Date Smoking Tobacco: Every Day Cigarettes Smokeless Tobacco: Never Alcohol Use Standard Drinks/Week Comments No 0 (1 standard drink = 0.6 oz pur e alcohol) Sex and Gender Information Value Date Recorded Sex Assigned at Not on file Gender Identity Not on file Sexual Orientation Not on file documented as of this encounter Medications at Time of Discharge Medication Sig Dispensed Refills Start Date End Date Miscellaneous Medical Supply Misc 1 Units by Other route. 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 06/12/2017 ONE TOUCH DELICA 33 gauge Misc TEST TWO TIMES A DAY 4 03/12/2017 HYDROcodone-acetaminop hen (NORCO) 10-325 mg Tablet Take 1 tablet by mouth every 6 hours as needed for Pain. baclofen (LIORESAL) 10 mg Tablet Take 10 mg by mouth 2 times daily. metFORMIN (GLUCOPHAGE) 1,000 mg tablet Take 1,000 mg by mouth 2 times daily (with meals). amitriptyline (ELAVIL) 10 mg tablet Take 20 mg by mouth nightly. dapsone (ACZONE) 25 mg tablet Take 2 tablets by mouth 2 times daily. 120 tablet 5 05/30/2011 gabapentin (NEURONTIN) 300 mg capsule Take 1,500 mg by mouth daily. nitrofurantoin (Macrobid) 100 mg capsule TAKE ONE CAPSULE BY MOUTH TWICE A DAY WITH A MEAL/FOOD 02/08/2023 05/27/2023 nystatin (Mycostatin) 100,000 unit/mL Suspension SWISH AND SWALLOW 1 ML BY MOUTH FOUR TIMES A DAY 02/16/2023 05/27/2023 ferrous gluconate (Ferate) 240 mg (27 mg iron) tablet TAKE ONE TABLET BY MOUTH ON SUNDAY, SUNDAY, Sunday11/15/2022 05/27/2023 colchicine (Colcrys) 0.6 mg Tablet TAKE ONE TABLET BY MOUTH THREE TIMES A DAY ON THE FIRST DAY THEN TAKE TWO TABLETS PER DAY AFTER THAT UNTIL SYMPTOMS ARE GONE 05/11/2021 05/22/2023 cephALEXin (Keflex) 500 mg Capsule TAKE ONE CAPSULE BY MOUTH FOUR TIMES A DAY 05/13/2021 04/17/2023 minocycline (Minocin) 100 mg Capsule Take one capsule by mouth nightly for 1 week then twice daily for 1 month 60 capsule 05/31/2021 05/22/2023 selenium sulfide 2.5 % Lotion Use every other day as shampoo for her scalp. Rinse out after 2-3 minutes 120 mL 5 05/31/2021 05/22/2023 diclofenac (VOLTAREN) 1 % GelIndications:Primary osteoarthritis of right knee Apply 2 g topically 4 times daily as needed (Pain). Apply to affected area. Max 8 grams/joint/day, 32 grams/day total. 100 g 07/30/2019 05/22/2023 aspirin 81 mg Tablet, Delayed Release (E.C.) Take 81 mg by mouth daily. 04/17/2023 warfarin (COUMADIN) 5 mg TabletIndications:5mg Mon, Wed, Fri 7.5mg Tues, Thur, Sat, Sun Take by mouth daily. Indications: 5mg Mon, Wed, Fri 7.5mg Tues, Thur, Sat, Sun 04/17/2023 documented as of this encounter Plan of Treatment Not on file documented as of this encounter Procedures Procedure Name Priority Date/Time Associated Diagnosis Comments XR TIBIA FIBULA BILAT Routine 03/12/2023 1:48 PM EDT Osteopenia, unspecified location documented in this encounter Results * XR Tibia Fibula Bilat (Generic) (03/12/2023 1:48 PM EDT) Anatomical Region Laterality Modality Leg Bilateral Digital Radiogra phy Impressions 03/12/2023 7:37 PM EDT Left lower extremity calcinosis cutis. I have personally reviewed the image(s) and the resident's interpretation and agree with the findings, Gisell Blackwell MD at 03/12/2023 7:37 PM Thank you for letting us participate in the care of this patient. ??If you are a health care provider and have any questions regarding this report, please contact the number below. ??For patients who have questions please contact the health home health care respiratory therapist that requested your imaging first. ? Electronically signed by: Gisell Blackwell MD, [facility] ([phone]), at 03/12/2023 7:37 PM Narrative 03/12/2023 7:37 PM EDT EXAMINATION: XR TIBIA FIBULA BILAT (GENERIC) CLINICAL HISTORY: suspect calcinosis cutis left leg TECHNIQUE: 2 views BILATERAL tibia and fibula COMPARISON: Right knee radiographs 07/30/2019, 12/16/2009 FINDINGS: The bones are demineralized. No fracture. Chondroid lesion within the right lateral tibial plateau is unchanged from 2010, characteristic of a benign enchondroma. Circumferential reticular calcifications within the soft tissues of the left lower extremity. No right-sided soft tissue calcifications. Procedure Note Gisell Blackwell MD - 03/12/2023 EXAMINATION: XR TIBIA FIBULA BILAT (GENERIC) CLINICAL HISTORY: suspect calcinosis cutis left leg TECHNIQUE: 2 views BILATERAL tibia and fibula COMPARISON: Right knee radiographs 07/30/2019, 12/16/2009 FINDINGS: The bones are demineralized. No fracture. Chondroid lesion within theright lateral tibial plateau is unchanged from 2010, characteristic of abenign enchondroma. Circumferential reticular calcifications within the soft tissues of theleft lower extremity. No right-sided soft tissue calcifications. IMPRESSION Left lower extremity calcinosis cutis. I have personally reviewed the image(s) and the resident's interpretationand agree with the findings, Gisell Blackwell MD at 03/12/2023 7:37 PM Thank you for letting us participate in the care of this patient. If youare a health care provider and have any questions regarding this report,please contact the number below. For patients who have questions please contactthe health home health care respiratory therapist that requested your imaging first. Electronically signed by: Gisell Blackwell MD, [facility]([phone]), at 03/12/2023 7:37 PM Grant Leos MD IMG DX ORDERABLES documented in this encounter Visit Diagnoses Diagnosis Osteopenia, unspecified location documented in this encounter Care Teams Infant Nanny Relationship Specialty Start Date End Date Eyad, Renzo R, ENGINE ROOM HELPER [address] [place] [address] PCP - General Family Medicine 05/31/21 documented as of this encounter
--- OUTSIDE RECORDS SUMMARY | 2024-03-21 13:59 | XMS_ITS | Encounter Summary ---
[place] [address] Care Team Providers Care Cook Fishing Vessel Name Role Phone Renzo Castano APRN Primary Care Provider +1- [phone] Encounter Details Date Type Department Care Team (Latest Contact Info) Description 03/12/2023 Travel Social History Tobacco Use Types Packs/Day Years [...] on filedocumented in this encounter Care Teams Cook Fishing Vessel Relationship Specialty Start Date End Date Renzo Castano APRN [address] [place], [place] [id number] PCP - General Family Medicine 05/31/21 documented as of this encounter
--- OUTSIDE RECORDS SUMMARY | 2024-03-21 13:59 | XMS_ITS | Encounter Summary ---
Author Organization [facility] Address [facility] [place] [address] Care Team Providers Care Collection Manager Name Role Phone Renzo Castano APRN Primary Care Provider +1- [phone] Encounter Details Date Type Department Care Team (Late st Contact Info) Description 04/10/[address] [place] [address] Franny Rojas MD [facility] [place] [address] Social History Tobacco Use Types Packs/Day Years [...] * Telephone Encounter - Linn Guy - 04/10/2023 3:06 PM EDT I left a second message for Janna Junior to get her scheduled for a new patient appointment in the Derm/Rheum clinic on 04/17. documented in this encounter Plan of Treatment Not on file documented as of this encounter Visit Diagnoses Not on filedocumented in this encounter Care Teams Collection Manager Relationship Specialty Start Date End Date Renzo Castano APRN [address] [place] [address] PCP - General Family Medicine 05/31/21 documented as of this encounter
--- OUTSIDE RECORDS SUMMARY | 2024-03-21 13:59 | XMS_ITS | Encounter Summary ---
[place] [address] Care Team Providers Care Cross Country/Track And Field Coach Name Role Phone Rezno Castano APRN Primary Care Provider +1- [phone] Encounter Details Date Type Department Care Team (Latest Contact Info) Description 03/19/2023 Travel Social History Tobacco Use Types Packs/Day [...] on filedocumented in this encounter Care Teams Cross Country/Track And Field Coach Relationship Specialty Start Date End Date Renzo Castano APRN [address] [place], [place] [id number] PCP - General Family Medicine 05/31/21 documented as of this encounter
--- OUTSIDE RECORDS SUMMARY | 2024-03-21 13:59 | XMS_ITS | Encounter Summary ---
[place] [address] Care Team Providers Care Horticulture Superintendent Name Role Phone Renzo Castano APRN Primary Care Provider [phone] Encounter Details Date Type Department Care Team (Late st Contact Info) Description 04/17/2023 2:30 PM EDT Office Visit Dermatology at [address] [id number] Indira Cleaning MD [address] [place] [address] [place] [address] Dermatitis; Calcinosis cutis Social History Tobacco Use Types Packs/Day Years Used Date Smoking Tobacco: Every Day Cigarettes Smokeless Tobacco: Never Alcohol Use Standard Drinks/Week Comments No 0 (1 standard drink = 0.6 oz pur e alcohol) Sex and Gender Information Value Date Recorded Sex Assigned at Not on file Gender Identity Not on file Sexual Orientation Not on file documented as of this encounter Progress Notes * Indira Cleaning MD - 04/17/2023 2:30 PM EDT Janna Junior is seen at the request of Dr. Khoi Crawford for cutaneous calcinosis. Her extensivehistory is well outlined by Dr. Crawford in his note from March 12, 2023. 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 In 2010 an x-ray of her left lower leg demonstrated sheetlike soft tissue calcification and the patient notes that at that time her left leg was firmer and painful. No specific evaluation was done until she saw Dr. Crawford at the request of her primary care provider Renzo Castano. The patient does answer yes to Raynaud's phenomena and noted that this occurred not only in cold but on exposure to air conditioning during the summer. She does have some difficulty swallowing pills and occasionally chokes but does not report food getting stuck or having gastroesophageal reflux symptoms at this time.She denies dyspnea on exertion but is an active smoker. She does not report weakness. Eliquis 5 mg tablet calcium carbonate (CALCIUM 300 ORAL) ferrous gluconate (Ferate) 324 mg (37.5 mg iron) tablet cholecalciferol, Vitamin D3, 50 mcg (2,000 unit) Capsule Miscellaneous [employer] Mis nitrofurantoin (Macrobid) 100 mg capsule nystatin (Mycostatin) 100,000 unit/mL Suspension ferrous gluconate (Ferate) 240 mg (27 mg iron) tablet colchicine (Colcrys) 0.6 mg Tablet omeprazole (PriLOSEC) 40 mg Capsule, Delayed Release(E.C.) minocycline (Minocin) 100 mg Capsule selenium sulfide 2.5 % Lotion clobetasoL (TEMOVATE) 0.05 % Solution triamcinolone (Kenalog) 0.1 % Cream diclofenac (VOLTAREN) 1 % Gel magnesium oxide (MAG-OX) 400 mg (241.3 mg magnesium) Tablet ONETOUCH ULTRA TEST Strip diphenoxylate-atropine (LOMOTIL) 2.5-0.025 mg Tablet ONE TOUCH DELICA 33 gauge Misc HYDROcodone-acetaminophen (NORCO) 10-325 mg Tablet baclofen (LIORESAL) 10 mg Tablet metFORMIN (GLUCOPHAGE) 1,000 mg tablet amitriptyline (ELAVIL) 10 mg tablet dapsone (ACZONE) 25 mg tablet gabapentin (NEURONTIN) 300 mg capsule On physical exam Janna is accompanied by her daughter. She is noted to have significant depigmentation of the skin of the forearms and elbows that she attributes to scratching dermatitis herpetiformis lesions. She has erythema and scale over the elbows as well as along the extensor aspect of the forearms bilaterally. Her palms are dry without erythema but she does have thickening scale and slight redness over the PIP joints. She has small hemorrhagic papules on the scalp and face. Her legs are notable for woody induration especially on the left lower leg but also present to a lesser degree on the right. There is pitting edema in the left sousa that is not present in the foot. Her nailfold c apillaries are normal although there is some enlargement of the tip of many capillaries. There is no cuticular overgrowth or overt erythema. The patient had laboratory tests performed on March 12, 2023. This included a hemoglobin of 10.3 with an MCV of 97 and normal platelet count and white blood count. Her differential blood count was unremarkable. Her comprehensive metabolic profile was normal with the exception of an alkaline phosphatase elevated at 167 with a minimally elevated AST of 31. She has an elevated gammaglobulin level of 1.45 without a monoclonal band. Her iron saturation was low at 11% and her ferritin was also low at 20. Her vitamin D level is deficient at 13. Her TEX was positive by immunofluorescence at 1-80 in a homogeneous pattern and 1-3 20 in a nucleolar pattern. Complement, double-stranded DNA antibodies, anticentromere, SCL 70, Ro, La, Aguilar, U1 COMPUTERIZED TABLE CUTTER and Mounika 1 were all negative. Her CRP was 3.5 and her myositis panel was positive for TIF 1 gamma at 32 units which puts it in the moderately positive range. The dermatology and rheumatology team discussed our thoughts with the patient. We are unable to find the biopsy report of the skin biopsy that led to the diagnosis of dermatitis herpetiformis although the appearance of her hemorrhagic papules are consistent with this diagnosis. However the lesions over the elbows and knuckles may go along with dermatomyositis especially the psoriasiform lesions associated with TIF 1 gamma antibodies. To evaluate the possibility of dermatomyositis a biopsy was performed of her right extensor forearm and her right fifth PIP. While subcutaneous calcinosis can beseen in dermatomyositis as well as scleroderma and less often and other connective tissue diseases,we feel that her lower leg calcinosis is related to lipodermatosclerosis accompanying venous disease exacerbated by her DVT. Her leg was not biopsied due to the likelihood that this would not heal well and would probably not give us adequate information. Further treatment will be based on her laboratory results and we will work in concert with Dr. Crawford and rheumatology. documented in this encounter Plan of Treatment Not on file documented as of this encounter Visit Diagnoses Diagnosis Dermatitis Contact dermatitis and other eczema, due to unspecified cause Calcinosis cutis Degenerative skin disorder documented in this encounter Care Teams Horticulture Superintendent Relationship Specialty Start Date End Date Renzo Castano, XIMENA [address] [place] [address] PCP - General Family Medicine 05/31/21 documented as of this encounter
--- OUTSIDE RECORDS SUMMARY | 2024-03-21 13:59 | XMS_ITS | Encounter Summary ---
[place] [address] Care Team Providers Care Manager Gyn Name Role Phone Renzo Castano APRN Primary Care Provider [phone]- [phone] Encounter Details Date Type Department Care Team (Latest Contact Info) Description 03/12/2023 11:10 AM EDT Laboratory Appointment Lab [address] [place] [id number] Warfarin anticoagulation; Calcinosis cutis; Osteopenia, unspecified location Social History Tobacco Use Types Packs/Day Years [...] Procedure Name Priority Date/Time Associated Diagnosis Comments [facility] PORPHYRINS, RANDOM URINE; QUANT Routine 03/12/2023 12:02 PM EDT Calcinosis cutis HC CREATININE - NON BLOOD Routine 03/12/2023 12:02 PM EDT Calcinosis cutis URINALYSIS WITH REFLEX CULTURE Routine 03/12/2023 12:02 PM EDT Calcinosis cutis [facility] ANATITRE (ANDPATTERN) Routine 03/12/2023 11:56 AM EDT Calcinosis cutis HC C-REACTIVE PROTEIN Routine 03/12/2023 11:56 AM EDT Calcinosis cutis HC PARATHYROID HORMONE(PTH INTACT Routine 03/12/2023 11:56 AM EDT Calcinosis cutis HC SAMARA PANEL Routine 03/12/2023 11:56 AM EDT Calcinosis cutis HC QUANTIFERON Routine 03/12/2023 11:56 AM EDT Calcinosis cutis HC DNA AB DS ([place]) Routine 03/12/2023 11:56 AM EDT Calcinosis cutis HC PCH MYOSITIS ANTIBODY PANEL PLUS Routine 03/12/2023 11:56 AM EDT Calcinosis cutis HEMOGRAM Routine 03/12/2023 11:56 AM EDT Calcinosis cutis DIFFERENTIAL, AUTOMATED Routine 03/12/2023 11:56 AM EDT Calcinosis cutis HC HEPATITIS C ANTIBODY Routine 03/12/2023 11:56 AM EDT Calcinosis cutis IRON AND TIBC Routine 03/12/2023 11:56 AM EDT HC HEPATITIS B CORE AB Routine 11:56 AM EDT Calcinosis cutis HC VITAMIN D TOTAL-25 HYDROXY Routine 03/12/2023 11:56 AM EDT Osteopenia, unspecified location HC HIV SCREEN, 4TH GENERATION Routine 03/12/2023 11:56 AM EDT Calcinosis cutis HC HEPATITIS B SURFACE AB Routine 03/12/2023 11:56 AM EDT Calcinosis cutis HC HEPATITIS B SURFACE AG Routine 03/12/2023 11:56 AM EDT Calcinosis cutis HC PARTIAL THROMBOPLASTIN TIME Routine 03/12/2023 11:56 AM EDT Warfarin anticoagulation HC ESR-SEDIMENTATION RATE, BLOOD Routine 03/12/2023 11:56 AM EDT Calcinosis cutis HC PROTHROMBIN TIME Routine 03/12/2023 1 1:56 AM EDT Warfarin anticoagulation HC CBC,PLT & AUTO DIFF Routine 11:56 AM EDT Calcinosis cutis HC CH50 Routine 03/12/2023 11:56 AM EDT Calcinosis cutis HC COMPLEMENT,C3 SERUM Routine 11:56 AM EDT Calcinosis cutis HC COMPLEMENT C4, PLASMA Routine 03/12/2023 11:56 AM EDT Calcinosis cutis HC SERUM PROT. ELECTROPHORESIS Routine 03/12/2023 11:56 AM EDT Calcinosis cutis HC HEMOGLOBIN A1C Routine 03/12/2023 11: 56 AM EDT Calcinosis cutis FOLATE, SERUM Routine 03/12/2023 11:56 AM EDT FERRITIN Routine 03/12/2023 11:56 AM EDT VITAMIN B12 Routine 03/12/2023 11:56 AM EDT HC CREATINE PHOSPHOKINASE, SERUM Routine 03/12/2023 11:56 AM EDT Calcinosis cutis COMPREHENSIVE METABOLIC PANEL (NON-FASTING) Routine 03/12/2023 11:56 AM EDT Calcinosis cutis documented in this encounter Results * Urinalysis with reflex Culture (03/12/2023 12:02 PM EDT) Glucose UA Negative Negative mg/dL [facility] Protein UA Negative Negative mg/dL [facility] Bilirubin UA Negative Negative mg/dL [facility] Comment: Clinical correlation required for positive Urine Bilirubin results as false positive may occur with some drugs and drug related products. If a false positive is suspected a serum total bilirubin should be considered if clinically indicated. Urobilinogen UA Normal Normal mg/dL [facility] pH UA 8.0 5.0 - 8.0 [facility] Blood UA Negative Negative mg/dL [facility] Ketones UA Negative Negative mg/dL [facility] Nitrite UA Negative Negative [facility] Leukocytes UA Negative Negative [facility] Appearance UA Clear Clear [facility] Spec [place] UA 1.008 1.005 - 1.030 [facility] Color UA Yellow Yellow [facility] Culture Reflexed No [facility] Urine NS 03/12/2023 12:0 2 PM EDT 03/12/2023 12:40 PM EDT Narrative Resulting Agency Comment Spec In Lab Grant Leos MD URINE ORDERABLES [facility] [place] [address] * Calcium Creatinine Ratio, random urine (03/12/2023 12:02 PM EDT) U Calcium <0.8 mg/dL [facility] U Creatinine 28 mg/dL [facility] Ca/Cre Ratio <0.03 ratio [facility] Urine 03/12/2023 12:0 2 PM EDT 03/12/2023 12:40 PM EDT Narrative Resulting Agency Comment Spec In Lab Grant Leos MD URINE ORDERABLES [facility] [place] [address] * Porphyrins, Quant Random Urine (03/12/2023 12:02 PM EDT) Porphyrins, QN, Random U Test ?Result ?Flag ??Unit ? RefValue ------- Porphyrins, QN, Random, U ??Uroporphyrin, [place] ?6 ? nmol/L ?? <=30 ??Heptacarboxylpor phyrins ? 1 ? nmol/L ?? <=7 ??Hexacarboxylporp hyrins ?<1 ?nmol/L ?? <=2 ??Pentacarboxylpor phyrins ? <1 ?nmol/L ?? <=5 ??Coproporphyrin, Tetra ? 32 ?nmol/L ?? <=110 ??Porphobilinogen ? 0.2 ? mcmol/L ??<=1.3 ??Interpretation ?In this sample, the porphyrins profile was normal. ? ---ADDITIONAL INFORMATION------- ?High-Performance Liquid Chromatography (HPLC) with ?fluoresence detection and Liquid Chromatography-Perera dem Mass ?Spectrometry (LC-MS/MS) ?This test was developed and its performance characteristics ?determined by [facility] in a manner consistent with CLIA ?requirements. This test has not been cleared or approved by ?the U.S. Food and Drug Administration. ?Test Performed by: ?[facility] ?[address] [place] [address] ?Psychologist: Zhen Hinson M.D. Ph.D.; CLIA# [id number] [facility] Urine 03/12/2023 12:0 2 PM EDT 03/12/2023 2:36 PM EDT Narrative Resulting Agency Comment Spec In Lab Grant Leos MD URINE ORDERABLES [facility] [place] [address] * (ABNORMAL) Iron and TIBC (03/12/2023 11:56 AM EDT) Iron 48 30 - 150 mcg/dL [facility] TIBC 444 250 - 450 mcg/dL [facility] Iron Saturation 11(L) 20 - 50 % [facility] Blood Venous Draw / Unknown 03/12/2023 11:56 AM EDT 03/12/2023 12:13 PM EDT Narrative Resulting Agency Comment Spec In Lab Khoi Crawford MD CHEMISTRY ORDERABLES Performing Organization Address City/[facility]/ZIP Co de Phone Number [facility] [place] [address] * (ABNORMAL) Ferritin (03/12/2023 11:56 AM EDT) Pathologist [facility] Ferritin 20(L) 30 - 400 ng/mL [facility] Comment: Pediatric reference ranges not verified at [facility], interpret with caution. Reference ranges for females greater than 50 years of age approach values for men, i.e., 30-400 ng/mL. Blood Venous Draw / Unknown 03/12/2023 11:56 AM EDT 03/12/2023 12:13 PM EDT Narrative Resulting Agency Comment Spec In Lab Khoi Crawford MD CHEMISTRY ORDERABLES Performing Organization Address City/[facility]/ZIP Co de Phone Number [facility] [place] [address] * Vitamin B12 (03/12/2023 11:56 AM EDT) [facility] Vitamin B-12 275 232 - 1,245 pg/mL [facility] Blood Venous Draw / Unknown 03/12/2023 11:56 AM EDT 03/12/2023 12:13 PM EDT Narrative Resulting Agency Comment Spec In Lab Khoi Crawford MD CHEMISTRY ORDERABLES [facility] [place] [address] * Folate, serum (03/12/2023 11:56 AM EDT) [facility] Folate Lvl 12.2 4.8 - 24.2 ng/mL [facility] Blood Venous Draw / Unknown 03/12/2023 11:56 AM EDT 03/12/2023 12:13 PM EDT Narrative Resulting Agency Comment Spec In Lab Khoi Crawford MD CHEMISTRY [place] [address] * Differential, Automated (03/12/2023 11:56 AM EDT) Neutrophils % 62.0 % [facility] Neutr Abs (ANC) 3.49 1.70 - 6.10 x10(3)/[facility] Lymphocytes % 29.1 % [facility] Lymphocytes Abs 1.6 0.9 - 3.2 x10(3)/[facility] Monocytes % 7.1 % [facility] Monocyte Abs 0.4 0.3 - 0.9 x10(3)/[facility] Eosinophils % 1.2 % [facility] Eosinophils Abs 0.1 0.0 - 0.4 x10(3)/[facility] Basophils % 0.4 % [facility] Basophils Abs 0.0 0.0 - 0.1 x10(3)/[facility] Immature Gran % 0.20 % [facility] Comment: Immature granulocytes(IG's)percentage and absolute count will include metamyelocytes, myelocytes, and promyelocytes. Blood smears from CBCs yielding IG's will be scanned manually for concordance. If this scan disagrees with the automated IG or if promyelocytes are noted, a manual differential will be performed. Abby Gran Abs 0.01 0.00 - 0.04 x10(3)/[facility] Blood 03/12/2023 11:5 6 AM EDT 03/12/2023 12:07 PM EDT Narrative Resulting Agency Comment Spec In Lab Khoi Crawford MD HEMATOLOGY ORDERABLE S [facility] [place] [address] * (ABNORMAL) Hemogram (03/12/2023 11:56 AM EDT) Pathologist [facility] WBC 5.6 4.0 - 9.5 x10(3)/[facility] RBC 3.40(L) 4.00 - 5.21 x10(6)/[facility] Hemoglobin 10.3(L) 11.7 - 15.5 g/dL [facility] Hematocrit 33.0(L) 35.7 - 45.8 % [facility] MCV 97.1(H) 82.6 - 94.4 fL [facility] MCH 30.3 27.1 - 32.0 pg [facility] MCHC 31.2(L) 31.7 - 35.0 g/dL [facility] Platelets 173 145 - 357 x10(3)/[facility] RDWSD 52.8(H) 37.0 - 46.0 [facility] RDWCV 14.7(H) 11.5 - 14.1 % [facility] MPV 10.0 7.6 - 12.9 [facility] nRBC % Auto 0.0 % [facility] nRBC Abs Auto 0.000 0.000 - 0.000 x10(3)/[facility] Blood 03/12/2023 11:5 6 AM EDT 03/12/2023 12:07 PM EDT Narrative Resulting Agency Comment Spec In Lab Khoi Crawford MD HEMATOLOGY ORDERABLE S [facility] [place] [address] * Extractable Nuclear Antigen (SAMARA) Ab (03/12/2023 11:56 AM EDT) Pathologist [facility] SS-A/Ro Ab <0.40 <=10.00 unit/mL [facility] Comment: <7 negative 7-10 equivocal >10 positive The SS-A antibody result was generated using fluoroenzyme immunoassay on the Phadia 250 analyzer. the semi-quantitative test is designed to detect IgG antibodies in human serum that are reactive to the SS-A (Ro) protein. Please note that as of 06/13/2022 that this testing is performed by the [facility] at [facility]. This change in testing location is associated with a change in testing method and reference intervals. Please review the results of this test in association with the posted reference intervals. SS-B/La Ab <0.40 <=10.00 unit/mL [facility] Comment: <7 negative 7-10 equivocal >10 positive The SS-B antibody result was generated using fluoroenzyme immunoassay on the Phadia 250 analyzer. the semi-quantitative test is designed to detect IgG antibodies in human serum that are reactive to the SS-B (La) protein. Please note that as of 06/13/2022 that this testing is performed by the [facility] at [facility]. This change in testing location is associated with a change in testing method and reference intervals. Please review the results of this test in association with the posted reference intervals. SCL-70 Ab <0.60 <=10.00 unit/mL [facility] Comment: <7 negative 7-10 equivocal >10 positive The Scl-70 antibody result was generated using fluoroenzyme immunoassay on the Phadia 250 analyzer. the semi-quantitative test is designed to detect IgG antibodies in human serum that are reactive to the Scl-70 protein. Please note that as of 06/13/2022 that this testing is performed by the [facility] at [facility]. This change in testing location is associated with a change in testing method and reference intervals. Please review the results of this test in association with the posted reference intervals. Sm (Aguilar) Ab <0.70 <=10.00 unit/mL [facility] Comment: <7 negative 7-10 equivocal >10 positive The Sm antibody result was generated using fluoroenzyme immunoassay on the Phadia 250 analyzer. the semi-quantitative test is designed to detect IgG antibodies in human serum that are reactive to the Sm protein. Please note that as of 06/13/2022 that this testing is performed by the [facility] at [facility]. This change in testing location is associated with a change in testing method and reference intervals. Please review the results of this test in association with the posted reference intervals. U1RNP Ab 0.50 <=10.00 unit/mL [facility] Comment: <5 negative 5-10 equivocal >10 positive The U1RNP antibody result was generated using fluoroenzyme immunoassay on the Phadia 250 analyzer. the semi-quantitative test is designed to detect IgG antibodies in human serum that are reactive to the U1RNP protein. Please note that as of 06/13/2022 that this testing is performed by the [facility] at [facility]. This change in testing location is associated with a change in testing method and reference intervals. Please review the results of this test in association with the posted reference intervals. Centromere Ab <0.40 <=10.00 unit/mL [facility] Comment: <7 negative 7-10 equivocal >10 positive The CENP antibody result was generated using fluoroenzyme immunoassay on the Phadia 250 analyzer. the semi-quantitative test is designed to detect IgG antibodies in human serum that are reactive to the Centromere B protein. Please note that as of 06/13/2022 that this testing is performed by the [facility] at [facility]. This change in testing location is associated with a change in testing method and reference intervals. Please review the results of this test in association with the posted reference intervals. Mounika-1 Ab <0.30 <=10.00 unit/mL [facility] Comment: <7 negative 7-10 equivocal >10 positive The Mounika-1 antibody result was generated using fluoroenzyme immunoassay on the Phadia 250 analyzer. the semi-quantitative test is designed to detect IgG antibodies in human serum that are reactive to the Mounika-1 protein. Please note that as of 06/13/2022 that this testing is performed by the [facility] at [facility]. This change in testing location is associated with a change in testing method and reference intervals. Please review the results of this test in association with the posted reference intervals. Blood 03/12/2023 11:5 6 AM EDT 03/12/2023 12:43 PM EDT Narrative Resulting Agency Comment Spec In Lab Grant Loes MD IMMUNOLOGY ORDERABL ES [facility] [place] [address] * C3 Complement (03/12/2023 11:56 AM EDT) C3 Complement 110 90 - 180 mg/dL [facility] Blood 03/12/2023 11:5 6 AM EDT 03/12/2023 12:07 PM EDT Narrative Resulting Agency Comment Spec In Lab Grant Leos MD CHEMISTRY ORDERABLE S Performing Organization Address [facility] Co de Phone Number [facility] [place] [address] * C4 Complement (03/12/2023 11:56 AM EDT) C4 Complement 15 10 - 40 mg/dL [facility] Blood 03/12/2023 11:5 6 AM EDT 03/12/2023 12:07 PM EDT Narrative Resulting Agency Comment Spec In Lab Grant Leos MD CHEMISTRY ORDERABLE S Performing Organization Address City/[facility]/ZIP Co de Phone Number [facility] [place] [address] * CRP, acute inflammation (03/12/2023 11:56 AM EDT) CRP 3.5 <=4.9 mg/L [facility] Blood 03/12/2023 11:5 6 AM EDT 03/12/2023 12:07 PM EDT Narrative Resulting Agency Comment Spec In Lab Grant Leos MD CHEMISTRY ORDERABLE S Performing Organization Address City/[facility]/ZIP Co de Phone Number [facility] [place] [address] * (ABNORMAL) Sedimentation rate (03/12/2023 11:56 AM EDT) Sed Rate 75(H) 2 - 39 mm/hr [facility] Comment: Effective July 30, 2019 new capillary photometric technology has resulted in a change in reference ranges. It is recommended that each ESR result be reviewed with its own age appropriate reference range. Blood 03/12/2023 11:5 6 AM EDT 03/12/2023 12:07 PM EDT Narrative Resulting Agency Comment Spec In Lab Grant Leos MD HEMATOLOGY ORDERABL ES Performing Organization Address [facility] Co de Phone Number [facility] [place] [address] * DNA Antibody (Double-Stranded) (03/12/2023 11:56 AM EDT) dsDNA Ab <0.6 <=15.0 IU/mL [facility] Comment: <10 negative 10-15 equivocal >15 positive This dsDNA antibody result was generated using a fluoroenzyme immunoassay on the inTarvo 250 analyzer. This quantitative test is designed to detect IgG antibodies directed against double stranded DNA in human serum. The presence of antibodies that recognize dsDNA is a highly specific marker for systemic lupus erythematosus. Please note that as of 06/13/2022 that this testing is performed by the [facility] at [facility]. This change in testing location is associated with a change is testing method and reference intervals. Please review the results of this test in association with the posted reference intervals. Blood 03/12/2023 11:5 6 AM EDT 03/12/2023 12:43 PM EDT Narrative Resulting Agency Comment Spec In Lab Grant Leos MD CHEMISTRY ORDERABLE S Performing Organization Address [facility] Co de Phone Number [facility] [place] [address] * (ABNORMAL) TEX Ab by IFA (03/12/2023 11:56 AM EDT) Antinuclear Ab Test ?Result ? Flag ??Unit ??RefValue Antinuclear Ab, HEp-2 Substrate, ?Positive 1:320 ??@ ?<1:80 (Negative) ??S ? ADDITIONAL INFORMATION --------- ?Method: Immunofluorescence using HEp-2 cellular substrate. ??TEX Titer: ?1:80 ??TEX Pattern: ?Homogeneous ??TEX Titer 2: ?1:320 ??TEX Pattern 2: ?Nucleolar ?Test Performed by: ?[facility] ?[address] [place] [address] ?Psychologist: Zhen Hinson M.D. Ph.D.; CLIA# [id number] ([id number]) [facility] Blood 03/12/2023 11:5 6 AM EDT 03/12/2023 2:52 PM EDT Narrative Resulting Agency Comment Spec In Lab Grant Leos MD CHEMISTRY ORDERABLE S [facility] [place] [address] * Complement, Total (03/12/2023 11:56 AM EDT) Complement Total 60 42 - 95 unit/mL [facility] Blood 03/12/2023 11:5 6 AM EDT 03/12/2023 12:07 PM EDT Narrative Resulting Agency Comment Spec In Lab Grant Leos MD CHEMISTRY ORDERABLE S [facility] [place] [address] * (ABNORMAL) Comprehensive metabolic panel (non-fasting) (03/12/2023 11:56 AM EDT) Pathologist [facility] Glucose Lvl 100 65 - 199 mg/dL [facility] Comment:Diabetes: >=200 mg/d L plus symptoms BUN 11 8 - 18 mg/dL [facility] Creatinine 0.96 0.70 - 1.20 mg/dL [facility] Sodium 137 135 - 145 mmol/L [facility] Potassium 4.3 3.5 - 5.0 mmol/L [facility] Comment: Please note: ??Patients with WBC >100,000 may have falsely elevated Potassium levels. ??For accurate Potassium quantification in these patients send serum separator tube (gold top) for subsequent determinations. ??Contact the Clinical Chemistry Laboratory if there are any questions. Chloride 101 98 - 107 mmol/L [facility] CO2 28 22 - 31 mmol/L [facility] Anion Gap 8 5 - 15 mmol/L [facility] Calcium 9.4 8.5 - 10.5 mg/dL [facility] Total Protein 8.0 6.1 - 8.0 g/dL [facility] Albumin 4.1 3.2 - 5.2 g/dL [facility] AST 31(H) 0 - 30 unit/L [facility] ALT 24 0 - 30 unit/L [facility] Alk Phos 167(H) 35 - 105 unit/L [facility] Total Bilirubin 0.3 0.2 - 1.3 mg/dL [facility] Estimated GFR 65 >=60 mL/min/1. 73 m?? [facility] Comment: This patient's estimated GFR was [...] and symptoms in addition to eGFR. Blood 03/12/2023 11:5 6 AM EDT 03/12/2023 12:07 PM EDT Narrative Resulting Agency Comment Spec In Lab Grant Leos MD CHEMISTRY ORDERABLE S Performing Organization Address City/[facility]/ZIP Co de Phone Number [facility] [place] [address] * PTH (03/12/2023 11:56 AM EDT) PTH 48 15 - 65 pg/mL [facility] Blood 03/12/2023 11:5 6 AM EDT 03/12/2023 12:07 PM EDT Narrative Resulting Agency Comment Spec In Lab Grant Leos MD CHEMISTRY ORDERABLE S [facility] [place] [address] * (ABNORMAL) Vitamin D, 25-Hydroxy (03/12/2023 11:56 AM EDT) 25-OH Vit D Total 13(L) 21 - 100 ng/mL [facility] 25-OH Vit D Interp Deficient [facility] Blood 03/12/2023 11:5 6 AM EDT 03/12/2023 12:07 PM EDT Narrative Resulting Agency Comment Spec In Lab Grant Leos MD CHEMISTRY ORDERABLE S [facility] [place] [address] * CK (03/12/2023 11:56 AM EDT) CK, Total 65 0 - 160 unit/L [facility] Blood 03/12/2023 11:5 6 AM EDT 03/12/2023 12:07 PM EDT Narrative Resulting Agency Comment Spec In Lab Grant Leos MD CHEMISTRY ORDERABLE S Performing Organization Address City/[facility]/ZIP Co de Phone Number [facility] [place] [address] * Hepatitis B Core Antibody, Total (03/12/2023 11:56 AM EDT) Hep B Core Ab Negative Negative [facility] Blood 03/12/2023 11:5 6 AM EDT 03/12/2023 12:07 PM EDT Narrative Resulting Agency Comment Spec In Lab Grant Leos MD CHEMISTRY ORDERABLE S [facility] [place] [address] * Hepatitis B Surface Antigen (03/12/2023 11:56 AM EDT) HepB Surface Ag Negative Negative [facility] Blood 03/12/2023 11:5 6 AM EDT 03/12/2023 12:07 PM EDT Narrative Resulting Agency Comment Spec In Lab Grant Leos MD CHEMISTRY ORDERABLE S [facility] [place] [address] * Hepatitis B Surface Antibody (03/12/2023 11:56 AM EDT) HepB Surface Ab Quant <3.5 IU/L [facility] Comment: HepB Surface Ab Quant: Unvaccinated: < 8.5 IU/L Vaccinated: >= 11.5 IU/L HepB Surface Ab Negative [facility] Comment: Patient is presumed to be not vaccinated or immune to HBV infection. Expected Results: Vaccinated: Positive Unvaccinated: Negative Blood 03/12/2023 11:5 6 AM EDT 03/12/2023 12:07 PM EDT Narrative Resulting Agency Comment Spec In Lab Grant Leos MD IMMUNOLOGY ORDERABL ES Performing Organization Address [facility] Co de Phone Number [facility] [place] [address] * Hepatitis C Antibody (03/12/2023 11:56 AM EDT) Pathologist [facility] Hepatitis C Ab Negative Negative [facility] Blood 03/12/2023 11:5 6 AM EDT 03/12/2023 12:07 PM EDT Narrative Resulting Agency Comment Spec In Lab Grant Leos MD IMMUNOLOGY ORDERABL ES Performing Organization Address City/[facility]/ZIP Co de Phone Number [facility] [place] [address] * QuantiFERON-TB Gold (03/12/2023 11:56 AM EDT) QFT Nil 0.032 IU/mL [facility] QFT TB Ag1-Nil 0.002 IU/mL [facility] QFT TB Ag2-Nil 0.000 IU/mL [facility] QFT Mitogen-Nil 9.968 IU/mL [facility] Quantiferon TB Negative Negative [facility] Quantiferon TB Interp M. tuberculosis infection NOT likely A negative specimen should have a TB1 Ag minus Nil value and TB2 Ag minus Nil value of less than 0.35 IU/mL OR a TB1 Ag minus Nil or TB2 Ag minus Nil value greater than or equal to 0.35 IU/mL AND a TB Ag minus Nil value from the same tube of less than 25% of the Nil value. A negative specimen must also have a mitogen minus Nil value greater than or equal to 0.5 IU/mL. A negative QFT-Plus result does not preclude the possibility of M. tuberculosis infection. False negative results can occur due to stage of infection (specimen obtained prior to the development of immune response), co-morbid conditions which affect immune function, or other immunological factors. [facility] Blood 03/12/2023 11:5 6 AM EDT 03/13/2023 7:15 AM EDT Narrative Resulting Agency Comment Spec In Lab Grant Leos MD CHEMISTRY ORDERABLE S [facility] [place] [address] * (ABNORMAL) Myositis Antibody Panel Plus (03/12/2023 11:56 AM EDT) Pathologist [facility] Myositis Ab Panel Test ? Result ? Flag ??Unit ?? RefValue ------- MyoMarker 3 Plus Profile ??Anti-Mounika-1 Ab ? <20 ?Units ??<20 ??Anti-PL-7 Ab ? Negative ?Negative ?This test was developed and its performance characteristics ?determined by [facility]. It has not been cleared or ?approved by the Food and Drug Administration. ??Anti-PL-12 Ab ?Negative ?Negative ?This test was developed and its performance characteristics ?determined by [facility]. It has not been cleared or ?approved by the Food and Drug Administration. ??Anti-EJ Ab ? Negative ?Negative ?This test was developed and its performance characteristics ?determined by [facility]. It has not been cleared or ?approved by the Food and Drug Administration. ??Anti-OJ Ab ? Negative ?Negative ?This test was developed and its performance characteristics ?determined by [facility]. It has not been cleared or ?approved by the Food and Drug Administration. ??Anti-SRP Ab ?Negative ?Negative ?This test was developed and its performance characteristics ?determined by [facility]. It has not been cleared or ?approved by the Food and Drug Administration. ??Ljie-Ds-9-Ab ? Negative ?Negative ?This test was developed and its performance characteristics ?determined by [facility]. It has not been cleared or ?approved by the Food and Drug Administration. ??Uxot-SJS-7pshae Ab ? 32 ?H ?Units ??<20 ?This test was developed and its performance characteristics ?determined by [facility]. It has not been cleared or ?approved by the Food and Drug Administration. ??Anti-MDA-5 Ab (CADM-140) ? <20 ?Units ??<20 ?This test was developed and its performance characteristics ?determined by [facility]. It has not been cleared or ?approved by the Food and Drug Administration. ??Anti-NXP-2 (P140) Ab ? <20 ?Units ??<20 ?This test was developed and its performance characteristics ?determined by [facility]. It has not been cleared or ?approved by the Food and Drug Administration. ??Anti-SAE1 Ab, IgG ?<20 ?Units ??<20 ?This test was developed and its performance characteristics ?determined by [facility]. It has not been cleared or ?approved by the Food and Drug Administration. ??Anti-PM/Scl-100 Ab ? <20 ?Units ??<20 ?This test was developed and its performance characteristics ?determined by [facility]. It has not been cleared or ?approved by the Food and Drug Administration. ??Anti-Ku Ab ? Negative ?Negative ?This test was developed and its performance characteristics ?determined by [facility]. It has not been cleared or ?approved by the Food and Drug Administration. ??Anti-SS-A 52kD Ab, IgG ? <20 ?Units ??<20 ?This test was developed and its performance characteristics ?determined by [facility]. It has not been cleared or ?approved by the Food and Drug Administration. ??Anti-U1 WASHING MACHINE OPERATOR Ab ? <20 ?Units ??<20 ??Anti-U2 WASHING MACHINE OPERATOR Ab ? Negative ?Negative ?This test was developed and its performance characteristics ?determined by [facility]. It has not been cleared or ?approved by the Food and Drug Administration. ??Anti-U3 WASHING MACHINE OPERATOR (Fibrillarin) ?Negative ?Negative ?This test was developed and its performance characteristics ?determined by [facility]. It has not been cleared or ?approved by the Food and Drug Administration. ?Interpretation for Anti-Mounika-1, [id number], ?Anti-MDA-5, Anti-NXP-2, Anti-SAE1, Anti-PM/Scl-100, ?Anti-SS-A 52 kD, Anti-U1 WASHING MACHINE OPERATOR: ?Negative: ?<20 ?Weak Positive: ? 20 - 39 ?Moderate Positive: ? 40 - 80 ?Strong Positive: ? >80 ?. ?Test Performed by: ?[facility] ?[facility] ?[place] [address](A) [facility] Blood 03/12/2023 11:5 6 AM EDT 03/12/2023 12:40 PM EDT Narrative Resulting Agency Comment Spec In Lab Grant Leos MD IMMUNOLOGY ORDERABL ES [facility] [place] [address] * (ABNORMAL) Protein Electrophoresis, serum (03/12/2023 11:56 AM EDT) Pathologist [facility] Total Prot Elec 7.7 6.1 - 8.0 g/dL [facility] Albumin Elect 4.31 3.20 - 5.20 g/dL [facility] Alpha1-Globul in 0.23 0.10 - 0.30 g/dL [facility] Alpha2-Globul in 0.79 0.40 - 0.90 g/dL [facility] Beta Globulin 0.92 0.50 - 1.00 g/dL [facility] Gamma Globulin 1.45(H) 0.50 - 1.30 g/dL [facility] M1 Band None Detected None Detected [facility] Blood 03/12/2023 11:5 6 AM EDT 03/12/2023 12:07 PM EDT Narrative Resulting Agency Comment Spec In Lab Grant Leos MD CHEMISTRY ORDERABLE S Performing Organization Address [facility] Co de Phone Number [facility] [place] [address] * HIV Screen, 4th Generation ([facility]/CGP/APD/NLH) (03/12/2023 11:56 AM EDT) [facility] HIV-1/2 Ab and Ag Negative Negative [facility] Comment: This 4th Generation HIV test screens for the presence of the HIV-1 p24 antigen as well as antibodies reactive against HIV-1 and HIV-2. A negative screen does not rule out an acute HIV infection. If acute HIV infection is suspected, testing should be repeated in 2 - 3 weeks or HIV nucleic acid testing performed. HIV Comment Low Risk of HIV Infection [facility] Blood 03/12/2023 11:5 6 AM EDT 03/12/2023 12:07 PM EDT Narrative Resulting Agency Comment Spec In Lab Grant Leos MD IMMUNOLOGY ORDERABL ES Performing Organization Address [facility] Co de Phone Number [facility] [place] [address] * Hemoglobin A1c (03/12/2023 11:56 AM EDT) Hemoglobin A1C 4.6 4.3 - 5.6 % [facility] Comment: Reference Range: 4.3 - 5.6% [...] 1, S67-74 Est Avg Gluc 84 mg/dL [facility] Comment: eAG equivalents for HbA1c [...] into estimated average glucose values. ??Diabetes Care 2008:31(8):[id number]. Blood 03/12/2023 11:5 6 AM EDT 03/12/2023 12:07 PM EDT Narrative Resulting Agency Comment Spec In Lab Grant Leos MD CHEMISTRY ORDERABLE S Performing Organization Address [facility] Co de Phone Number [facility] [place] [address] * (ABNORMAL) Prothrombin Time (03/12/2023 11:56 AM EDT) PT 28.5(H) 9.4 - 12.5 sec [facility] INR 2.5 [facility] Comment: An INR <2.0 indicates adequate procoagulant activity for hemostasis in most patients without underlying bleeding disorders, though the INR may not adequately reflect hemostatic capacity in patients with liver disease and synthetic impairment. The recommended target INR range for therapeutic anticoagulation is 2.0 ? 3.0 for most applications, though lower and higher ranges may be appropriate depending on clinical circumstances. Blood 03/12/2023 11:5 6 AM EDT 03/12/2023 12:07 PM EDT Narrative Resulting Agency Comment Spec In Lab Grant Leos MD HEMATOLOGY ORDERABL ES Performing Organization Address [facility] Co de Phone Number [facility] [place] [address] * (ABNORMAL) APTT (03/12/2023 11:56 AM EDT) PTT 50(H) 25 - 37 sec [facility] Comment: The PTT is NOT appropriate for heparin monitoring. Use the Anti-Xa level for heparin monitoring (HEP UFH) or LMWH monitoring (HEP LMW). A PTT less than 37 seconds generally indicates adequate hemostasis. Blood 03/12/2023 11:5 6 AM EDT 03/12/2023 12:07 PM EDT Narrative Resulting Agency Comment Spec In Lab Grant Leos MD HEMATOLOGY ORDERABL ES Performing Organization Address [facility] Co de Phone Number [facility] [place] [address] documented in this encounter Visit Diagnoses Diagnosis Warfarin anticoagulation Encounter for long-term (current) use of anticoagulants Calcinosis cutis Degenerative skin disorder Osteopenia, unspecified location documented in this encounter Care Teams Manager Gyn Relationship Specialty Start Date End Date Renzo Castano APRN [address] [place] [address] PCP - General Family Medicine 05/31/21 documented as of this encounter
--- OUTSIDE RECORDS SUMMARY | 2024-03-21 13:59 | XMS_ITS | Encounter Summary ---
[place] [address] Care Team Providers Care Boat Dispatcher Name Role Phone Renzo Castano APRN Primary Care Provider [phone]- [phone] Reason for Referral * Diagnostic Test (Routine) - Closed Specialty Diagnoses / Procedures Referred By Contac t Referred To Contact Radiology Diagnoses Other dermatomyositis, organ involvement unspecified Procedures CT Chest Abdomen Pelvis w Contrast (Generic) Khoi Crawford MD [facility] [place] [address] [facility] [place] [address] Referral ID Status Reason Start Date Expiration Date V isits Requested Visits Authorized [id number] Closed Specialty Service Requested 04/03/2023 10/04/2024 1 1 Reason for Visit * Diagnostic Test (Routine) - Closed Specialty Diagnoses / Procedures Referred By Contac t Referred To Contact Radiology Diagnoses Other dermatomyositis, organ involvement unspecified Procedures CT Chest Abdomen Pelvis w Contrast (Generic) Khoi Crawford MD [facility] [place] [address] [facility] [place] [address] Referral ID Status Reason Start Date Expiration Date V isits Requested Visits Authorized [id number] Closed Specialty Service Requested 04/03/2023 10/04/2024 1 1 Encounter Details Date Type Department Care Team (Latest Contact Info) Description 05/17/2023 1:03 PM EDT - 05/17/2023 11:59 PM EDT Hospital Encounter CT Scan at [facility] [place] [address] Grant Leos MD [facility] [place] [address] Other dermatomyositis, organ involvement unspecified Discharge Disposition: Home Social History Tobacco Use [...] Sig Dispensed Refills Start Date End Date calcium carbonate (CALCIUM 300 ORAL) Take by mouth. ferrous gluconate (Ferate) 324 mg (37.5 mg iron) tablet Take 1 tablet by mouth three times a week (Mon, Weds, Fri). 60 tablet 3 04/04/2023 cholecalciferol, Vitamin D3, 50 mcg (2,000 unit) Capsule Take 1 capsule by mouth daily. 60 capsule 2 04/03/2023 Miscellaneous Medical Supply Misc 1 Units by [...] capsule Take 1,500 mg by mouth daily. Eliquis 5 mg tablet Take 5 mg by mouth 2 times daily. 04/06/2023 05/22/2023 nitrofurantoin (Macrobid) 100 mg capsule TAKE ONE [...] THAT UNTIL SYMPTOMS ARE GONE 05/11/2021 05/22/2023 minocycline (Minocin) 100 mg Capsule Take one [...] 32 grams/day total. 100 g 07/30/2019 05/22/2023 documented as of this encounter Plan of Treatment Not on file documented as of this encounter Procedures Procedure Name Priority Date/Time Associated Diagnosis Comments CT CHEST ABDOMEN PELVIS W CONTRAST (GENERIC) Routine 05/17/2023 3:44 PM EDT Other dermatomyositis, organ involvement unspecified documented in this encounter Results * CT Chest Abdomen Pelvis w Contrast (Generic) (05/17/2023 3:44 PM EDT) Anatomical Region Laterality Modality Abdomen, Pelvis Computed Tomogra phy Impressions 05/18/2023 9:24 AM EDT 1. ??Apical predominant semisolid bilateral pulmonary nodules, most consistent with an infectious or inflammatory etiology. ??Given high risk of malignancy, short-term CT of the chest, possibly in 3 months, can be obtained to ensure stability or resolution. 2. ??Mild centrilobular emphysema. 3. ??Hepatic steatosis. 4. ??Moderate atherosclerotic calcification particularly of the infrarenal abdominal aorta with a minimal luminal diameter of 8 x 11 mm. 5. ??15 mm lobulated right thyroid nodule. ??Per ACR white paper guidelines, follow-up nonemergent ultrasound the thyroid is recommended. 6. ??Status post left common iliac venous stenting, patent. Thank you for letting us participate in the care of this patient. ??If you are a health care provider and have any questions regarding this report, please contact the number below. ??For patients who have questions please contact the health animal care worker that requested your imaging first. ? Narrative 05/18/2023 9:24 AM EDT EXAMINATION: CT CHEST ABDOMEN PELVIS W CONTRAST (GENERIC) CLINICAL HISTORY: TIF1-y positive, has calcinosis cutis and skin induration of legs, need to rule out an underlying malignancy given the high prevalence with TIF1 Y. TECHNIQUE: Helical CT of the chest, abdomen, and pelvis following the intravenous administration of contrast. Administered 84.0 ml of VISIPAQUE 320.00 mg/ml. Oral contrast was administered. COMPARISON: Comparison is made to multiple prior CT of the abdomen and pelvis examinations, the most recent which is dated January 17, 2022. ??No prior cross-sectional imaging of the thorax is provided for comparison. FINDINGS: Loftsman Images: Noncontributory. CT OF THE CHEST: Pulmonary parenchyma: There is a 5 mm pulmonary nodule in the left upper lobe. There are curvilinear bands of scarring in the ventral aspects of the bilateral upper lobes. ??There are multifocal sub-5 mm semisolid nodules in the right upper lobe and to a lesser extent left upper lobe. ??There are curvilinear bands of atelectasis at the bilateral lung bases. ??There is mild centrilobular emphysema with an apical predominance. Airways: Central airways are patent. ??There is no endobronchial or endotracheal lesion. ??There are layering secretions within the trachea. Pleura: There is no pleural effusion or pneumothorax. Lymph nodes:There are no pathologically enlarged lymph nodes. Heart, pericardium, and great vessels: Cardiac size is within normal limits. There is physiologic pericardial fluid. ??There is mild to moderate multifocal atherosclerotic calcification of the coronary arteries. ??The aorta is normal in course and caliber. ??There is mild atherosclerotic calcification of the aortic arch extending into the proximal great vessels. ??There is a normal three-vessel aortic arch configuration. ??There is less than 50% stenosis within the proximal left subclavian artery due to noncalcified atheroma. ??The pulmonary arteries are normal in course and caliber; there are no central intraluminal filling defects. Other mediastinal structures: The mediastinal fat is preserved. ??Limited evaluation of the esophagus is unremarkable. Lower neck: There is a 15 mm lobulated right thyroid nodule. Body wall soft tissues: Normal. Skeletal structures: As detailed below. CT OF THE ABDOMEN AND PELVIS: Liver: The liver is diffusely hypoattenuating, consistent with hepatic steatosis. Bile ducts: Normal. Gallbladder: The gallbladder is surgically absent with surgical clips within the gallbladder fossa. Pancreas: There is mild to moderate atrophy of the pancreas. Spleen: There is a peripheral wedge-shaped focus of relative hypoattenuation of the posterior spleen, likely related to prior ischemia or traumatic injury. ??The remainder of the spleen enhances normally and homogeneously. Adrenals: Normal. Kidneys: Normal. Urinary Bladder: The urinary bladder is distended and is otherwise unremarkable. Vasculature: The aorta is normal in course. ??There is moderate mixed noncalcified and calcified atheroma throughout the abdominal aorta. ??There is luminal narrowing of the infrarenal abdominal aorta, with a minimal luminal diameter of 11 x 8 mm. ??The inferior vena cava is normal in course and caliber. There is a left common iliac venous stent present which appears patent. ??The superior mesenteric, splenic, and portal veins are patent. ??The hepatic veins are patent. ??The renal veins are patent. Lymph Nodes: ??There are no pathologically enlarged lymph nodes. Bowel: Limited evaluation the distal esophagus is unremarkable. ??The stomach is under distended, limiting evaluation. ??There is unchanged thickening along the greater curvature of the stomach, stable dating back to 2009. ??The duodenum is normal in course and caliber. ??The remainder of the small bowel is within normal limits. ??The ileocecal valve is within normal limits. ??There is a moderate volume of stool throughout the course of the large bowel. ??The transverse and sigmoid colons are moderately redundant. Peritoneum and mesentery: No ascites, free air, or loculated fluid collection. No mesenteric inflammation. Abdominal wall: Normal. Reproductive organs: The uterus is anteverted. ??Limited evaluation of the adnexa is unremarkable. Osseous structures: There is generalized osseous demineralization, which limits interpretation. ??There are degenerative changes of the visualized spine with endplate sclerosis and osteophyte formation. ??There is a compression fracture deformity of the T8 vertebral body at the expense of the superior endplate with approximately 40% remaining vertebral body height, this appears chronic. ??There is disc desiccation with loss of intervertebral disc height and vacuum disc phenomenon. ??There are mild arthritic changes of the bilateral hip joints and glenohumeral joints. Procedure Note [employer] [facility], - 05/18/2023 EXAMINATION: CT CHEST ABDOMEN PELVIS W CONTRAST (GENERIC) CLINICAL HISTORY: TIF1-y positive, has calcinosis cutis and skininduration of legs, need to rule out an underlying malignancy given the high prevalencewith TIF1 Y. TECHNIQUE: Helical CT of the chest, abdomen, and pelvis following the intravenous administration of contrast. Administered 84.0 ml of MBKIGESDA769.00 mg/ml. Oral contrast was administered. COMPARISON: Comparison is made to multiple prior CT of the abdomen andpelvis examinations, the most recent which is dated January 17, 2022. No prior cross-sectional imaging of the thorax is provided for comparison. FINDINGS: Loftsman Images: Noncontributory. CT OF THE CHEST: Pulmonary parenchyma: There is a 5 mm pulmonary nodule in the left upperlobe. There are curvilinear bands of scarring in the ventral aspects of thebilateral upper lobes. There are multifocal sub-5 mm semisolid nodules in the rightupper lobe and to a lesser extent left upper lobe. There are curvilinear bandsof atelectasis at the bilateral lung bases. There is mild centrilobularemphysema with an apical predominance. Airways: Central airways are patent. There is no endobronchial orendotracheal lesion. There are layering secretions within the trachea. Pleura: There is no pleural effusion or pneumothorax. Lymph nodes:There are no pathologically enlarged lymph nodes. Heart, pericardium, and great vessels: Cardiac size is within normallimits. There is physiologic pericardial fluid. There is mild to moderatemultifocal atherosclerotic calcification of the coronary arteries. The aorta isnormal in course and caliber. There is mild atherosclerotic calcification of theaortic arch extending into the proximal great vessels. There is a normalthree-vessel aortic arch configuration. There is less than 50% stenosis within theproximal left subclavian artery due to noncalcified atheroma. The pulmonaryarteries are normal in course and caliber; there are no central intraluminal fillingdefects. Other mediastinal structures: The mediastinal fat is preserved. Limited evaluation of the esophagus is unremarkable. Lower neck: There is a 15 mm lobulated right thyroid nodule. Body wall soft tissues: Normal. Skeletal structures: As detailed below. CT OF THE ABDOMEN AND PELVIS: Liver: The liver is diffusely hypoattenuating, consistent with hepatic steatosis. Bile ducts: Normal. Gallbladder: The gallbladder is surgically absent with surgical clipswithin the gallbladder fossa. Pancreas: There is mild to moderate atrophy of the pancreas. Spleen: There is a peripheral wedge-shaped focus of relativehypoattenuation of the posterior spleen, likely related to prior ischemia or traumaticinjury. The remainder of the spleen enhances normally and homogeneously. Adrenals: Normal. Kidneys: Normal. Urinary Bladder: The urinary bladder is distended and is otherwiseunremarkable. Vasculature: The aorta is normal in course. There is moderate mixed noncalcified and calcified atheroma throughout the abdominal aorta. Thereis luminal narrowing of the infrarenal abdominal aorta, with a minimalluminal diameter of 11 x 8 mm. The inferior vena cava is normal in course andcaliber. There is a left common iliac venous stent present which appears patent.The superior mesenteric, splenic, and portal veins are patent. The hepaticveins are patent. The renal veins are patent. Lymph Nodes: There are no pathologically enlarged lymph nodes. Bowel: Limited evaluation the distal esophagus is unremarkable. Thestomach is under distended, limiting evaluation. There is unchanged thickening alongthe greater curvature of the stomach, stable dating back to 2009. Theduodenum is normal in course and caliber. The remainder of the small bowel is withinnormal limits. The ileocecal valve is within normal limits. There is amoderate volume of stool throughout the course of the large bowel. The transverseand sigmoid colons are moderately redundant. Peritoneum and mesentery: No ascites, free air, or loculated fluidcollection. No mesenteric inflammation. Abdominal wall: Normal. Reproductive organs: The uterus is anteverted. Limited evaluation of theadnexa is unremarkable. Osseous structures: There is generalized osseous demineralization, whichlimits interpretation. There are degenerative changes of the visualized spinewith endplate sclerosis and osteophyte formation. There is a compressionfracture deformity of the T8 vertebral body at the expense of the superior endplatewith approximately 40% remaining vertebral body height, this appears chronic.There is disc desiccation with loss of intervertebral disc height and vacuumdisc phenomenon. There are mild arthritic changes of the bilateral hip jointsand glenohumeral joints. IMPRESSION 1. Apical predominant semisolid bilateral pulmonary nodules, mostconsistent with an infectious or inflammatory etiology. Given high risk ofmalignancy, short-term CT of the chest, possibly in 3 months, can be obtained toensure stability or resolution. 2. Mild centrilobular emphysema. 3. Hepatic steatosis. 4. Moderate atherosclerotic calcification particularly of theinfrarenal abdominal aorta with a minimal luminal diameter of 8 x 11 mm. 5. 15 mm lobulated right thyroid nodule. Per ACR white paperguidelines, follow-up nonemergent ultrasound the thyroid is recommended. 6. Status post left common iliac venous stenting, patent. Thank you for letting us participate in the care of this patient. If youare a health care provider and have any questions regarding this report,please contact the number below. For patients who have questions please contactthe health animal care worker that requested your imaging first. Grant Leos MD IMG CT ORDERABLES documented in this encounter Visit Diagnoses Diagnosis Other dermatomyositis, organ involvement unspecified documented in this encounter Administered Medications Inactive Administered Medications - up to 3 most recent administrations Medication Order MAR Action Action Date Dose Rate Site iodixanoL (Visipaque) (320 mg/mL) injection solution 0-200 mL 0-200 mL, Intravenous, ONCE PRN, 1 dose, Starting on Chen 05/17/23 at 1523, Until Chen 05/17/23 at 1544, Per Protocol, Radiology Contrast, Routine Given 05/17/2023 3:44 PM EDT 86 mLs iohexoL (Omnipaque) (350 mg/mL) solution 0-50 mL 0-50 mL, Oral, ONCE PRN, 1 dose, Starting on Chen 05/17/23 at 1523, Until Chen 05/17/23 at 1523, Per Protocol, Warning Vesicant/Irritant Medication , Radiology Contrast, Routine Given 05/17/2023 3:23 PM EDT 50 mLs documented in this encounter Care Teams Boat Dispatcher Relationship Specialty Start Date End Date Renzo Castano APRN [address] [place] [address] PCP - General Family Medicine 05/31/21 documented as of this encounter
--- OUTSIDE RECORDS SUMMARY | 2024-03-21 13:59 | XMS_ITS | Encounter Summary ---
Author Organization [facility] [place] [address] Care Team Providers Care Bean Roaster Name Role Phone Renzo Castano APRN Primary Care Provider +1- [phone] Reason for Visit * Reason Onset Date Comments Appointment 05/04/2023 CT Chest/Abd/Pel vis ordered by Dr. Crawford Encounter Details Date Type Department Care Team (Late st Contact Info) Description 05/04/2023 [place] [address] Mason Seaman, RN Appointment (CT Chest/Abd/Pelvis ordered by Dr. Crawford) Social History Tobacco Use Types Packs/Day Years [...] encounter Miscellaneous Notes * Telephone Encounter - Mason Seaman RN - 05/04/2023 4:42 PM EDT Calling pt regarding CT Chest/Abd/Pelvis ordered by Dr. Crawford, transferred call to CT to schedule imaging. documented in this encounter Plan of Treatment Not on file documented as of this encounter Visit Diagnoses Not on filedocumented in this encounter Care Teams Bean Roaster Relationship Specialty Start Date End Date Renzo Castano APRN [address] [place] [address] [address] [place] [address] PCP - General Family Medicine 05/31/21 documented as of this encounter
--- OUTSIDE RECORDS SUMMARY | 2024-03-21 13:59 | XMS_ITS | Encounter Summary ---
Author Organization [facility] Address [facility] [place] [address] Care Team Providers Care Payment Manager Name Role Phone Renzo Castano APRN Primary Care Provider +1- [phone] Encounter Details Date Type Department Care Team (Late st Contact Info) Description 05/24/2023 Orders [place] [id number] Betzy Johns APRN [facility] [place] [address] Multiple pulmonary nodules Social History Tobacco Use Types Packs/Day Years Used Date Smoking Tobacco: Every Day Cigarettes Smokeless Tobacco: Never Alcohol Use Standard Drinks/Week Comments No 0 (1 standard drink = 0.6 oz pur e alcohol) [facility] Inpatient Questions Answer Date Recorded Does Anyone [...] as of this encounter Visit Diagnoses Diagnosis Multiple pulmonary nodules Other nonspecific abnormal finding of lung field documented in this encounter Care Teams Payment Manager Relationship Specialty Start Date End Date Renzo Castano APRN [address] [place] [address] PCP - General Family Medicine 05/31/21 documented as of this encounter
--- OUTSIDE RECORDS SUMMARY | 2024-03-21 13:59 | XMS_ITS | Encounter Summary ---
Author Organization [facility] Address [facility] [place] [address] Care Team Providers Care Slitter Service And Setter Name Role Phone Renzo Castano APRN Primary Care Provider +1- [phone] Reason for Visit * Reason Comments Establish Care * Consultation (Priority 2) - Closed Specialty Diagnoses / Procedures Referred By Candelario rodriguez Referred To Contact Dermatology Diagnoses Calcinosis cutis Khoi Crawford MD [facility] [place] [address] [facility] Dermatology [address] [place] [address] Referral ID Status Reason Start Date Expiration Date V isits Requested Visits Authorized [id number] Closed Consult, Test & Treat 03/12/2023 03/11/2024 1 1 Encounter Details Date Type Department Care Team (Late st Contact Info) Description 04/17/2023 2:30 PM EDT Office Visit Dermatology at [facility] [address] [place] [address] Franny Rojas MD [facility] [place] [address] Skin rash; Dermatitis herpetiformis Social History Tobacco Use Types Packs/Day Years Used Date Smoking Tobacco: Every Day Cigarettes Smokeless Tobacco: Never Alcohol Use Standard Drinks/Week Comments No 0 (1 standard drink = 0.6 oz pur e alcohol) Sex and Gender Information Value Date Recorded Sex Assigned at Not on file Gender Identity Not on file Sexual Orientation Not on file documented as of this encounter Patient Instructions * Patient Instructions* Daniela Dhillon RN - 04/17/2023 2:30 PM EDT Punch Biopsy Wound Care Instructions Your treatment today: You have had a punch biopsies of the skin of your right arm and right 5th finger, which is a removal of tissue for examination under a microscope. There are 2 stitches in the wound on the arm and 1 stitch in the finger - all will need to be removed in 7 days. If bleeding occurs, hold firm, constant pressure against the wound for 15-20 minutes (with no peeking). If bleeding continues, call the clinic or go to your local emergency department. Please allow 1-2 weeks for the biopsy results to return. In accordance with the Century Cures Act Final Rule, the pathology results will be released to your [employer] patient portal at the same timethey are available to the physician to review. Your physician or nurse will contact you within 3 business days of receiving the results; follow-up will be discussed at that time. If in 2 weeks, you have not heard from us, please feel free to contact the clinic to discuss your biopsy results. Wound care instructions: Keep the bandage placed over the wound dry and intact for 24 hours. Afterwards, perform the following wound care daily: Wash your hands. Remove the bandage, clean the area with soap and water, and gently pat dry. Apply a small amount of Vaseline and cover with a Band-Aid. Repeat daily until your stitches are removed. A small amount of yellow drainage is part of the normal healing process. You may notice some redness around the edge of the wound; this is normal. Please contact the clinic if you notice any of the following signs of infection: increased pain, tenderness, drainage, or redness that becomes hot or hard around the wound. Contact information: For non-urgent questions, please call the clinic at [phone] (weekdays, 8 am to 5 pm). After 5 pm, and on weekends and holidays, for urgent concerns that cannot wait until the next business day, please call the hospital at [phone] and ask for the Wildlife Rehabilitator On-Call. documented in this encounter Progress Notes * Franny Rojas MD - 04/17/2023 2:30 PM EDT Images from the original note were not included. DEPARTMENT OF DERMATOLOGY Dermatology-Rheumatology Specialty Clinic Provider: FRANNY ROJAS MD Visit conducted in conjunction with Indira Cleaning MD of Rheumatology. 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 Past Medical History Date, relevant details Antecedent history Relevant PMH May-Thurner syndrome, Celiac disease, chronic pain syndrome, depression, diabetes, GERD, HTN, hyperlipidemia, migraines, protein C deficiency Chronic DVT of left femoral vein (s/p iliac venous stenting in 2009, on coumadin since age 19), hx of PE, hx of miscarriage Relevant skin history Skin cancer: No Other: - Dermatitis herpetiformis (Started Dapsone Apr 2006; stopped Jun 2022 d/t anemia; started sulfasalazine in Jun 2022; triamcinolone cream) - Seborrheic dermatitis of scalp with component acne excoriee (ketoconazole shampoo, clobetasol solution, Synalar solution, minocycline) Biopsies -- Relevant diagnostic labs TEX: positive at 1:320, homogenous/nucleolar patterns (03/12/23) C3, C4, total complement: wnl (03/12/23) CK: wnl (03/12/23, 11/26/18) CRP: wnl (03/12/23, 01/14/19) dsDNA: neg (03/12/23) SAMARA: neg (03/12/23) ESR: elevated at 75 (03/12/23), elevated at 39 (01/14/19) Myositis panel: weakly positive; [id number] Ab elevated at 32 (03/12/23) PTH: wnl (03/12/23) SPEP: Elevated gamma globulin at 1.45 (03/13/23) UA: wnl (03/12/23) Calcium/creatinine ratio, random urine: wnl (03/12/23) Porphyrins, random urine: wnl (03/12/23) Vitamin D: Low at 13 (03/12/23) Negative Q-TB Gold, HIV, HepB, Hep C serologies (03/12/23); negative Lyme Ab (04/04/23 in Care Everywhere) Imaging, additional workup/studies EMG (12/26/18): Patient could not tolerate full examination. The abnormalities of nerve conduction, late responses, and EMG are consistent with a left peroneal nerve pathology. The asymmetry of the sural sensory studies may be related to technical factors secondary to significant left leg edema. CT A/P (01/17/22): No evidence of renal calculi, hydronephrosis nor hydroureter and there are no radiopaque calculi in the urinary bladder. An endovascular stent is noted in the left common iliac vein. Atherosclerotic abdominal aorta as described above with mild fusiform dilatation of the inferior aspect. The common iliac arteries are calcified but not enlarged. Splenomegaly noted. LLE venous duplex (01/10/23): Patent external iliac and proximal common iliac vein without evidence of obstruction; stent margins not visualized. Remainder of common iliac vein and inferior vena cava were not visualized due to overlying bowel gas. No identifiable significant change compared to previous exam 08/07/17 where iliac was examined on lower extremity venous duplex. XR left foot (01/10/23): 1) Marked osteopenia/osteoporosis. Suggest DEXA scan for quantification if not previously obtained. 2) No acute fracture or radiographic evidence of stress reaction. If clinical concern for stress reaction or occult fracture, consider MRI for more sensitive assessment given the degree of osteopenia. RAFI (03/19/23) RIGHT: Moderate lower extremity arterial occlusive disease. Significant deteriorationwhen compared to previous exam performed on 08/06/2018. LEFT: Moderate lower extremity arterial occlusive disease to the ankle. Toe- brachial index substantially lower than ankle-brachial index indicates presence of severe arterial occlusive disease in the foot. Significant deterioration in the TBI with slight deterioration in the RAFI when compared to previous exam performed on 08/06/2018. DEXA: Pending XR of legs: Pending Previous treatments Current treatments Care team members PCP: Renzo Castano APRN Derm: Fausto Luna MD Rheum: Khoi Crawford MD; Grant Leos MD Vascular Surg: Hali Leavitt MD Endocrinology: Pending; referral in place for osteopenia Orthopedics: Pending; referral in place for foot pain Malignancy screening (dermatomyositis only) CT C/A/P: Ordered 04/03/[address] 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 new patient seen today in the Dermatology-Rheumatology clinic at the request of Khoi Crawford MD, for evaluation of a skin rash and lab work c/w new diagnosis of dermatomyositis. She is accompanied today by her daughter, Krissy. They are somewhat uncertain why Sylvia was referred to this clinic. - Relevant medications: - Dapsone 50 mg BID - Clobetasol solution - filled at pharmacy 2 days ago; has not tried yet - Selenium sulfide shampoo - has used PRN for seborrheic dermatitis of scalp for many years - Current symptoms and specific concerns today: - Skin: - Firmness of the lower legs that is sometimes tender. She does not tolerate compressions socks/hose. - Rash on the face and scalp. She eats a gluten-free diet. Reports that when her DH was untreated, her skin itched and scratched vigorously, resulting in the prominent white scars, particularly on her forearms and elbows. - Other: Endorses neuropathy. When asked says her fingers turn white in the cold, such as an air-conditioned stores in the summer. - Last labs: 03/12/23 (ordered by Dr. Crawford): CBC, CMP, ESR, CRP, CK, UA, urinary calcium, PTH, C3, C4, total complements, TEX by IFA, SAMARA, dsDNA, myositis panel, SPEP, urine porphyrins, Hep B, Hep C,HIV, Q-TB Gold, vitamin D, (A1c, INR requested by patient) Labs: Latest Reference Range & Units 03/12/23 11:56 WBC 4.0 - 9.5 x10(3)/mcL 5.6 RBC 4.00 - 5.21 x10(6)/mcL 3.40 (L) Hemoglobin 11.7 - 15.5 g/dL 10.3 (L) Hematocrit 35.7 - 45.8 % 33.0 (L) MCV 82.6 - 94.4 fL 97.1 (H) MCH 27.1 - 32.0 pg 30.3 MCHC 31.7 - 35.0 g/dL 31.2 (L) RDWSD 37.0 - 46.0 fL 52.8 (H) RDWCV 11.5 - 14.1 % 14.7 (H) Platelets 145 - 357 x10(3)/mcL 173 MPV 7.6 - 12.9 fL 10.0 nRBC % Auto % 0.0 nRBC Abs Auto 0.000 - 0.000 x10(3)/mcL 0.000 Neutr Abs (ANC) 1.70 - 6.10 x10(3)/mcL 3.49 Neutrophils % % 62.0 Immature Gran % % 0.20 Lymphocytes % % 29.1 Monocytes % % 7.1 Eosinophils % % 1.2 Basophils % % 0.4 Abby Gran Abs 0.00 - 0.04 x10(3)/mcL 0.01 Lymphocytes Abs 0.9 - 3.2 x10(3)/mcL 1.6 Monocyte Abs 0.3 - 0.9 x10(3)/mcL 0.4 Eosinophils Abs 0.0 - 0.4 x10(3)/mcL 0.1 Basophils Abs 0.0 - 0.1 x10(3)/mcL 0.0 Sed Rate 2 - 39 mm/hr 75 (H) Coag Studies Latest Reference Range & Units 03/12/23 11:56 PT 9.4 - 12.5 sec 28.5 (H) INR 2.5 PTT 25 - 37 sec 50 (H) Chemistry Latest Reference Range & Units 03/12/23 11:56 Sodium 135 - 145 mmol/L 137 Potassium 3.5 - 5.0 mmol/L 4.3 Chloride 98 - 107 mmol/L 101 CO2 22 - 31 mmol/L 28 Anion Gap 5 - 15 mmol/L 8 BUN 8 - 18 mg/dL 11 Creatinine 0.70 - 1.20 mg/dL 0.96 Estimated GFR >=60 mL/min/1.73 m?? 65 Calcium 8.5 - 10.5 mg/dL 9.4 Glucose Lvl 65 - 199 mg/dL 100 Hemoglobin A1C 4.3 - 5.6 % 4.6 Est Avg Gluc mg/dL 84 CK, Total 0 - 160 unit/L 65 Total Protein 6.1 - 8.0 g/dL 8.0 Albumin 3.2 - 5.2 g/dL 4.1 Total Bilirubin 0.2 - 1.3 mg/dL 0.3 Alk Phos 35 - 105 unit/L 167 (H) AST 0 - 30 unit/L 31 (H) ALT 0 - 30 unit/L 24 Total Prot Elec 6.1 - 8.0 g/dL 7.7 Albumin Elect 3.20 - 5.20 g/dL 4.31 Alpha1-Globulin 0.10 - 0.30 g/dL 0.23 Alpha2-Globulin 0.40 - 0.90 g/dL 0.79 Beta Globulin 0.50 - 1.00 g/dL 0.92 Gamma Globulin 0.50 - 1.30 g/dL 1.45 (H) M1 Band None Detected None Detected Folate Lvl 4.8 - 24.2 ng/mL 12.2 Iron 30 - 150 mcg/dL 48 TIBC 250 - 450 mcg/dL 444 Iron Saturation 20 - 50 % 11 (L) Ferritin 30 - 400 ng/mL 20 (L) Vitamin B-12 232 - 1,245 pg/mL 275 25-OH Vit D Total 21 - 100 ng/mL 13 (L) 25-OH Vit D Interp Deficient Medications: Reviewed in eD-H Allergies: Reviewed in eD-H PMH: Reviewed in eD-H ROS: General: Feeling well Skin: Denies other skin complaints Patient endorses the following: Dry mouth, which she says makes swallowing (she takes most of her pills with pudding) Patient denies the following: photosensitivity (though endorses easy sunburns), dyspnea/SOB, heart burn Skin Examination: Focused skin examination of the scalp, face, upper extremities and lower extremities was normal with the exception of the findings below. Assessment/Plan: A. ? Interface Dermatitis (?DM) - [place], scaly plaques on the elbows and forearms with background hypopigmentation. Scaly, pink patches over the PIPs. Slightly prominent right 4th nailfold capillaries; others are normal. Hyperkeratotic palms. Diffuse xerosis. (Figure 1-3) - Discussed that recent lab work up with Dr. Crawford showed dermatomyositis, an autoimmune inflammatory disease that affects the skin and can affect muscles and/or lungs. Briefly discussed association with underlying malignancy and need to screen for malignancy for first 3-5 years after diagnosis. Recommended age- appropriate malignancy screenings. She has yet to complete colonoscopy, mammogram, andPAP or TVUS. - Recommended a skin biopsy to confirm/clarify the nature of the skin rash. After discussing potential risks (e.g., bleeding, pain, infection, pigment change, scarring, recurrence), patient agreed toproceed. - Patient denies known allergies to lidocaine and epinephrine. Procedure: Skin punch biopsy x2 A. Right extensor forearm B. Right 5th PIP Time of procedure: 3:30 pm Indications and expectations, including risks and benefits, discussed. Verbal consent obtained. Skin prepped with alcohol. Local anesthesia administered with 1% xylocaine, 1:100,000 epinephrine. 4 mmpunch biopsy (forearm) and 2 mm punch biopsy (finger) to level of subcutis performed. Specimen submitted to Pathology. Wounds closed with monofilament suture. There were no complications; patient tolerated procedures well. Wounds dressed. Post-procedure expectations, wound care, and activity restrictions reviewed. Follow-up based on pathology results. - Number of sutures: 2 (forearm), 1 (finger) - Suture removal: 7 days (both sites) B. Dermatitis Herpetiformis - Hemorrhagic papules on the temporal scalp, left episcopalian, and left forehead. Few crustly papules on the elbows. - Remote history of biopsy (not on file in our system to review). - Continue medication regimen as follows: - Rx dapsone 25 mg: Take 2 tablets PO BID (total 100 mg/day). - Rx triamcinolone 0.1% cream: Apply twice daily as needed (prescribed by Dr. Luna). - Rx clobetasol 0.05% solution: Apply to scalp nightly as needed (prescribed by Dr. Luna) Figure 1 Figure 2 Figure 3 Photo(s) taken and charted with patient's verbal consent. RTC: Based on biopsy results: [] In-person visit [] TeleHealth visit [] Note routed to audio visual secretary (Linn Vernon) [] Recall placed in scheduling system [] Appointment scheduled at checkout Scribe attestation: Daniela Dhillon RN has performed the documentation for this encounter in the presence of and acting as a scribe for FRANNY ROJAS MD. I performed the above scribed service and agree with the accuracy of the documentation in this encounter. Reviewed and signed by: FRANNY ROJAS MD [employer] General Supervisor of Dermatology Dermatology [facility] cc: XIMENA Bass MD documented in this encounter Plan of Treatment Not on file documented as of this encounter Procedures Procedure Name Priority Date/Time Associated Diagnosis Comments SPECIMEN TO PATHOLOGY Routine 04/17/2023 6:18 PM EDT Skin rash SURGICAL PATHOLOGY REPORT Routine 04/17/2023 6:09 PM EDT SPECIMEN TO PATHOLOGY Routine 04/17/2023 6:09 PM EDT Skin rash documented in this encounter Results * Specimen to Pathology (04/17/2023 6:18 PM EDT) AP Specimen 04/17/2023 6:18 PM EDT 04/17/2023 6:18 PM EDT Narrative [facility] - 04/17/2023 6:18 PM EDT Specimen requisition ordered. ??Separate Pathology report to follow Franny Rojas MD PATHOLOGY/CYTOLOGY ORDERABLES [facility] [place] [address] * Surgical Pathology Report (04/17/2023 6:09 PM EDT) FINAL DIAGNOSIS (AP) [id number] ? Location: HDM The signing pathologist has (i) examined the relevant preparation(s) for the specimen(s) and (ii) rendered or confirmed the diagnosis(es). . ?Surgical Pathology DIAGNOSIS A. Right extensor forearm, skin punch biopsy: - Subtle interface inflammation, vascular ectasia, and hyperkeratosis ? (see discussion) B. Right 5th PIP, skin punch biopsy: - Mild acanthosis and papillary dermal vascular ectasia ?(see discussion) Electronically signed by: ?Claribel SHARIF, Manolo Dailey Verified: ??04/26/2023 14:53 ??Dermatopathologist Performed at: ??[facility] Dept. of Pathology, [place] [address] Transmitter Engineer In Charge: Tish Esparza MD, FCAP, ??CLIA Certificate: [id number] DISCUSSION The findings are sparse and histopathologically equivocal, but lend support for dermatomyositis. The stratum corneum contains parakeratin and serum, which together with a rare dermal eosinophil could raise alternative consideration for resolving spongiotic/eczematous dermatitis, but spongiosis is altogether lacking, and the subtle vascular ectasia, patchy interface activity and focal hydropic degeneration of the basal layer are more suggestive of dermatomyositis. ADDITIONAL STUDIES A/B. PASd staining was performed to assess for the possibility of fungal infection, and was negative for intracorneal fungal elements. ?Multiple step-leveled sections were reviewed. SPECIMEN(S) SUBMITTED A - Right extensor forearm (specimen A), skin punch (1) B - Right 5th PIP (specimen B), skin punch (1) CLINICAL INFORMATION Question interface dermatitis-pink, scaly plaques on the elbows and forearms with background hypopigmentation. Scaly, pink patches over the PIPs. Slightly prominent right fourth nail fold capillaries; others are normal. Hyperkeratotic palms. Diffuse xerosis. SPECIMEN PROCESSING A - Labeled/Fixative: Right extensor forearm, formalin. Quantity/Size: ??Single, 0.4 x 0.4 x 0.2 cm. Tissue Description: Perera-brown skin punch biopsy. Sections/Processing: Bisected and entirely submitted in 1 cassette labeled A1. B - Labeled/Fixative: Right fifth PIP, formalin. Quantity/Size: ??Single, 0.3 x 0.3 x 0.1 cm. Tissue Description: Perera-brown skin punch biopsy. Sections/Processing: Entirely submitted in 1 cassette labeled B1. ??jnk 04/26/2023 2:53 PM EDT [facility] SPECIMEN FROM SKIN / Unknown 04/17/2023 6:09 PM EDT 04/17/2023 6:09 PM EDT SPECIMEN FROM SKIN / Unknown 04/17/2023 6:09 PM EDT 04/17/2023 6:09 PM EDT Franny Rojas MD PATHOLOGY/CYTOLOGY ORDERABLES Performing Organization Address City/[facility]/ZIP Co de Phone Number [facility] [place] [address] * Specimen to Pathology (04/17/2023 6:09 PM EDT) AP Specimen 04/17/2023 6:09 PM EDT 04/17/2023 6:09 PM EDT Narrative [facility] - 04/17/2023 6:09 PM EDT Specimen requisition ordered. ??Separate Pathology report to follow Franny Rojas MD PATHOLOGY/CYTOLOGY ORDERABLES Performing Organization Address City/[facility]/ZIP Co de Phone Number [facility] [place] [address] documented in this encounter Visit Diagnoses Diagnosis Skin rash Rash and other nonspecific skin eruption Dermatitis herpetiformis documented in this encounter Care Teams Slitter Service And Setter Relationship Specialty Start Date End Date Renzo Castano APRN [address] [place] [address] PCP - General Family Medicine 05/31/21 documented as of this encounter
--- OUTSIDE RECORDS SUMMARY | 2024-03-21 13:59 | XMS_ITS | Encounter Summary ---
[place] [address] Care Team Providers Care Maintenance Tech Name Role Phone Renzo Castano APRN Primary Care Provider +1- [phone] Encounter Details Date Type Department Care Team (Late st Contact Info) Description 03/19/2023 11:30 AM EDT Tech [place] [address] [place], [place] Left foot pain; Osteopenia, unspecified location; Calcification of soft tissue Social History Tobacco Use Types Packs/Day Years [...] Procedure Name Priority Date/Time Associated Diagnosis Comments RAFI, LEGS, MULTIPLE LEVELS Routine 03/19/2023 11:27 AM EDT Left foot pain Osteopenia, unspecified location Calcification of soft tissue documented in this encounter Results * RAFI, legs, multiple levels (03/19/2023 11:27 AM EDT) VB Text Report Department: Vascular Surgery Lab Patient: [id number] (TESSIEENDER ROBB) CPT: 28083 Referring Physician: TANJA M BEACH MD ?? Phone: Indications: Patient with left foot pain, ? change in RAFI Diabetes mellitus: Yes Findings: Right ?Pressure (mm Hg) ?? RAFI ??Waveform ?TBI ?? Brachial Artery ?130 ? Dorsalis Pedis (Ankle) Artery ?77 ?0.59 ??Cannon-Biphasic ? Posterior Tibial (Ankle) Artery ??71 ?0.55 ??Cannon-Biphasic ? Great Toe ?47 ? 0.36 ?? Left ? Pressure (mm Hg) ?? RAFI ??Waveform ?TBI ?? Brachial Artery ?120 ? Dorsalis Pedis (Ankle) Artery ?74 ?0.57 ??Cannon-Biphasic ? Posterior Tibial (Ankle) Artery ??70 ?0.54 ??Cannon-Biphasic ? Great Toe ?28 ? 0.22 ?? Interpretation: RIGHT: Moderate lower extremity arterial occlusive disease.Significa nt deterioration when compared to previous exam performed on 08/06/2018. LEFT: Moderate lower extremity arterial occlusive disease to the ankle. Toe-brachial index substantially lower than ankle-brachial index indicates presence of severe arterial occlusive disease in the foot. Significant deterioration in the TBI with slight deterioration in the RAFI when compared to previous exam performed on 08/06/2018. Previous ABIs with change from previous value: Date ?RIGHT DP ?? RIGHT PT ?? RT GR TOE ??RT Sec TOE ??0.91 ? 0.92 ? ---- ? ---- ??0.58(-.33) 0.58(-.34) 0.46 ? ---- ??0.63(+.05) 0.64(+.06) 0.44(-.02) ---- ??0.79(+.16) 0.78(+.14) 0.54(+.10) ---- ??0.69(-.10) 0.74(-.04) 0.56(+.02) 0.36 ??0.69( .00) 0.72(-.02) 0.52(-.04) ---- Current ? 0.59(-.10) 0.55(-.17) 0.36(-.16) ---- Date ?LEFT DP ?LEFT PT ?LT GR TOE LT Sec TOE ??0.85 ? 0.90 ? ---- ? ---- ??0.48(-.37) 0.54(-.36) 0.38 ? ---- ??0.61(+.13) 0.63(+.09) 0.32(-.06) ---- ??0.72(+.11) 0.73(+.10) 0.42(+.10) ---- ??0.65(-.07) 0.65(-.08) 0.36(-.06) 0.39 ??0.69(+.04) 0.68(+.03) 0.38(+.02) ---- Current ? 0.57(-.12) 0.54(-.14) 0.22(-.16) ---- Electronically Signed by: GENIA GIORDANO on 2023-03-19 03:42:35 PM [facility] VB Text Report End of Report [facility] 03/19/2023 11:2 7 AM EDT Tanja Leavitt MD VASCULAR ORDERABLES [facility] documented in this encounter Visit Diagnoses Diagnosis Left foot pain Pain in limb Osteopenia, unspecified location Calcification of soft tissue Other disorders of soft tissue documented in this encounter Care Teams Maintenance Tech Relationship Specialty Start Date End Date Renzo Castano APRN [address] [place] [address] PCP - General Family Medicine 05/31/21 documented as of this encounter
--- OUTSIDE RECORDS SUMMARY | 2024-03-21 13:59 | XMS_ITS | Encounter Summary ---
[place] [address] Care Team Providers Care Rougher Helper Name Role Phone Renzo Castano APRN Primary Care Provider +1- [phone] Encounter Details Date Type Department Care Team (Late st Contact Info) Description 04/03/2023 Telephone [place] [phone] Josh Paniagua RN Social History Tobacco Use Types Packs/Day Years [...] encounter Miscellaneous Notes * Telephone Encounter - Josh Paniagua RN - 04/03/2023 3:22 PM EDT Copied from [facility] #[id number]. Topic: Specialty Dept CRMs - Generic Call >> Apr 03, 2023 2:48 PM Colette Lynn wrote: Specialist: Rheumatology - Dr. Crawford Relationship (if other than patient-full name): Mandie with [employer] Reason for Call: Mandie wanted to let Dr. Crawford know that she received his message for Renzo Castano and she will pass the message on to the provider tomorrow when he returns to the office documented in this encounter Plan of Treatment Not on file documented as of this encounter Visit Diagnoses Not on filedocumented in this encounter Care Teams Rougher Helper Relationship Specialty Start Date End Date Renzo Catsano, SOW FARM BARN TECHNICIAN [address] [place] [address] [address] [facility] [address] [place] [address] PCP - General Family Medicine 05/31/21 documented as of this encounter
--- OUTSIDE RECORDS SUMMARY | 2024-03-21 13:59 | XMS_ITS | Encounter Summary ---
[place] [address] Care Team Providers Care Hand Expansion Envelope Maker Name Role Phone Renzo Castano APRN Primary Care Provider +1- [phone] Encounter Details Date Type Department Care Team (Latest Contact Info) Description 05/22/2023 3:45 PM EDT TH Visit (TeleHealth) Dermatology at [address] [address] Indira Cleaning MD [address] [place] [id number] Dermatitis; Calcinosis cutis; Skin rash Social History Tobacco Use Types Packs/Day Years [...] Progress Notes * Indira Cleaning MD - 05/22/2023 3:45 PM EDT Janna Vernon is seen at the request of Dr. [...] status post left iliac vein stenting in 2009 who is on chronic anticoagulation with recent switch from warfarin to Eliquis. In 2009 an x-ray of her left lower leg [...] mcg (2,000 unit) Capsule Miscellaneous Medical Supply [facility] [place]furantoin (Macrobid) 100 mg capsule nystatin (Mycostatin) [...] mg Tablet ONE TOUCH DELICA 33 gauge Mis HYDROcodone-acetaminophen (NORCO) 10-325 mg Tablet baclofen (LIORESAL) [...] anticentromere, SCL 70, Ro, La, Aguilar, U1 PERSONAL BANKING REPRESENTATIVE and Mounika 1 were all negative. Her CRP was 3.5 and her myositis panel was positive for TIF 1 gamma at 32 units which puts it in the moderately positive range. The dermatology and rheumatology team discussed our thoughts with the patient on 04/17/2023. We are unable to find the biopsy report of the skin biopsy that led to the diagnosis of dermatitis herpetiformis although the appearance of her hemorrhagic papules are consistent with this diagnosis. Howeverthe lesions over the elbows and knuckles may go along with dermatomyositis especially the psoriasiform lesions associated with TIF 1 gamma antibodies. To evaluate the possibility of dermatomyositis abiopsy was performed of her right extensor forearm and her right fifth PIP. While subcutaneous calcinosis can be seen in dermatomyositis as well as scleroderma and less often and other connective tiss ue diseases, we feel that her lower leg calcinosis is related to lipodermatosclerosis accompanying venous disease exacerbated by her DVT. Her leg was not biopsied due to the likelihood that this would not heal well. Biopsies performed on 04/17/2023 A. Right extensor forearm, skin punch biopsy: - Subtle interface inflammation, vascular ectasia, and hyperkeratosis (see discussion) B. Right 5th PIP, skin punch biopsy: - Mild acanthosis and papillary dermal vascular ectasia (see discussion) DISCUSSION The findings are sparse and histopathologically equivocal, but lend support for dermatomyositis. The stratum corneum contains parakeratin and serum, which together with a rare dermal eosinophil could raise alternative consideration for resolving spongiotic/eczematous dermatitis, but spongiosis is altogether lacking, and the subtle vascular ectasia, patchy interface activity and focal hydropic degeneration of the basal layer are more suggestive of dermatomyositis. Her myositis panel was positive for TIF 1 gamma at 32 units ( * Indira Cleaning MD - 05/22/2023 3:45 PM EDT Janna Junior is seen at the request of Dr. 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 She is discussed today with Dr. Reeves due to admission for a bullous eruption that began 5 days ago, [address] study with contrast. 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 In 2009 an x-ray of her left lower leg [...] active smoker. She does not report weakness. On physical exam Janna is accompanied by [...] anticentromere, SCL 70, Ro, La, Aguilar, U1 PERSONAL BANKING REPRESENTATIVE and Mounika 1 were all negative. Her [...] would probably not give us adequate information. Biopsy results: A. Right extensor forearm, skin punch biopsy: - Subtle interface inflammation, vascular ectasia, and hyperkeratosis (see discussion) B. Right 5th PIP, skin punch biopsy: - Mild acanthosis and papillary dermal vascular ectasia (see discussion) DISCUSSION The findings are sparse and histopathologically equivocal, but lend support for dermatomyositis. The stratum corneum contains parakeratin and serum, which together with a rare dermal eosinophil could raise alternative consideration for resolving spongiotic/eczematous dermatitis, but spongiosis is altogether lacking, and the subtle vascular ectasia, patchy interface activity and focal hydropic degeneration of the basal layer are more suggestive of dermatomyositis. Myositis panel positive for Tiff 1 gamma at 32 units (weakly positive). Today we reviewed her photos and discussed the case with Dr. Reeves who was seeing her in the ER. The patient was in transit to her inpatient room so we could not speak with her. Our differential includes viral diseases like disseminated zoster, Church Thomas syndrome due to contrast and less likely new pemphigus or pemphigoid. We worry about an underlying malignancy and hope that an expedited evaluation of her nodules can occur during this hospitalization. documented in this encounter Plan of Treatment Not on file documented as of this encounter Visit Diagnoses Diagnosis Dermatitis Contact dermatitis and other eczema, due to unspecified cause Calcinosis cutis Degenerative skin disorder Skin rash Rash and other nonspecific skin eruption documented in this encounter Care Teams Hand Expansion Envelope Maker Relationship Specialty Start Date End Date Renzo Castano APRN [address] [place] [address] PCP - General Family Medicine 05/31/21 documented as of this encounter
--- OUTSIDE RECORDS SUMMARY | 2024-03-21 13:59 | XMS_ITS | Encounter Summary ---
Author Organization [facility] Address [facility] [place] [address] Care Team Providers Care Technical Marketing Consultant Name Role Phone Renzo Castano APRN Primary Care Provider +1- [phone] Encounter Details Date Type Department Care Team (Late st Contact Info) Description 04/12/20[address] [place] [address] Franny Rojas MD [facility] [place] [address] Social History Tobacco Use Types Packs/Day Years [...] * Telephone Encounter - Linn Guy - 04/12/2023 2:02 PM EDT I left a third message for Janna Junior to get her scheduled for a new patient appointment inthe Derm/Rheum clinic on 04/17. documented in this encounter Plan of Treatment Not on file documented as of this encounter Visit Diagnoses Not on filedocumented in this encounter Care Teams Technical Marketing Consultant Relationship Specialty Start Date End Date Renzo Castano APRN [address] [place] [address] PCP - General Family Medicine 05/31/21 documented as of this encounter
--- OUTSIDE RECORDS SUMMARY | 2024-03-21 13:59 | XMS_ITS | Encounter Summary ---
Author Organization [facility] [place] [address] Care Team Providers Care Field Counsel Name Role Phone Renzo Castano APRN Primary Care Provider +1- [phone] Encounter Details Date Type Department Care Team (Late st Contact Info) Description 03/13/2023 Telephone [place] [phone] Khoi Crawford MD [facility] [place] [address] Social History Tobacco Use Types Packs/Day Years [...] on filedocumented in this encounter Care Teams Field Counsel Relationship Specialty Start Date End Date Renzo Castano APRN [address] [place], [place] [address] PCP - General Family Medicine 05/31/21 documented as of this encounter
--- OUTSIDE RECORDS SUMMARY | 2024-03-21 13:59 | XMS_ITS | Encounter Summary ---
[place] [address] Care Team Providers Care Automobile Parts Assembler Name Role Phone Renzo Castano APRN Primary Care Provider +1- [phone] Encounter Details Date Type Department Care Team (Latest Contact Info) Description 05/17/2023 Travel Social History Tobacco Use Types Packs/Day [...] on filedocumented in this encounter Care Teams Automobile Parts Assembler Relationship Specialty Start Date End Date Renzo Castano APRN [address] [place], [place] [address] PCP - General Family Medicine 05/31/21 documented as of this encounter
--- OUTSIDE RECORDS SUMMARY | 2024-03-21 13:59 | XMS_ITS | Encounter Summary ---
[place] [address] Care Team Providers Care Hot Metal Mixer Operator Name Role Phone Renzo Castano APRN Primary Care Provider +1- [phone] Encounter Details Date Type Department Care Team (Late st Contact Info) Description 05/07/2023 Telephone [place] [phone] Marie Olivier RN Social History Tobacco Use Types Packs/Day [...] encounter Miscellaneous Notes * Telephone Encounter - Marie Olivier RN - 05/07/2023 11:36 AM EDT TC to patient. Per Dr Crawford, nurse called the patient to have ENERGY SALES CONSULTANT(Orders only) sent to [facility]. Results will need to be sent back to our facility. * Telephone Encounter - Marie Olivier RN - 05/07/2023 9:51 AM EDT Copied from [facility] #[id number]. Topic: Specialty Dept CRMs - Orders >> May 04, 2023 4:54 PM Hung Brody wrote: Orders Request Specialist: Dr. Crawford Relationship (if other than patient-full name): [place] [facility] [place] Type of Request: [x] Input orders Type/Name of Order: Labs If Labs and Imaging list name of specific test(s): Kreatinine Date of Lab/Imaging/Testing Appt: 05/17/23 Date of Provider Appt: 06/14/23 Appt Type with Provider: FUV Patient Requesting to Have Orders Sent to Facility Outside of [facility]: No Kaila is calling to state the patient is having a CT scan done with them on 05/17/23 but their Kreatinine lab will be outdated by the CT date. Kaila would like a new one ordered. Please call [phone] with questions. Patient needs new Creatine lab order, or extended? Message sent to the Provider for review/order. documented in this encounter Plan of Treatment Not on file documented as of this encounter Visit Diagnoses Not on filedocumented in this encounter Care Teams Hot Metal Mixer Operator Relationship Specialty Start Date End Date Renzo Castano, FHA UNDERWRITER [address] [place] [address] PCP - General Family Medicine 05/31/21 documented as of this encounter
--- OUTSIDE RECORDS SUMMARY | 2024-03-21 13:59 | XMS_ITS | Encounter Summary ---
[place] [address] Care Team Providers Care Concrete Foreman Name Role Phone Renzo Castano APRN Primary Care Provider +1- [phone] Reason for Referral * Diagnostic Test (Routine) - Closed Specialty Diagnoses / Procedures Referred By Contac t Referred To Contact Radiology Diagnoses Other dermatomyositis, organ involvement unspecified Procedures CT Chest Abdomen Pelvis w Contrast (Generic) Khoi Crawford MD [facility] [place] [address] [facility] [address] [place] [address] Referral ID Status Reason Start Date Expiration Date V isits Requested Visits Authorized [id number] Closed Specialty Service Requested 04/03/2023 10/04/2024 1 1 Encounter Details Date Type Department Care Team (Late st Contact Info) Description 04/03/2023 Telephone [place] [address] Khoi Crawford MD [facility] [place] [address] Social History Tobacco Use Types Packs/Day Years [...] encounter Miscellaneous Notes * Telephone Encounter - Khoi Crawford MD - 04/03/2023 11:10 AM EDT Called patient to update about labs. She has what looks like iron deficiency anemia along with vitamin d deficiency. Her myositis panel also came back + for TIF-1 gamma 32 (ref range <20) and TEX 1:320. Last pap smear was 6 yrs ago and it was reportedly normal Last mammogram was 6 years ago, it was reportedly normal Never had a colonoscopy Mother had breast cancer x 2 (metastatic) Plan: -Clinical features are very atypical for TIF I Gamma dermatomyositis, wonder if she has a paraneoplastic process - given the high prevalence of malignancy associated with TIF1 gamma dermatomyositis, I have recommended completing a malignancy work-up -We will get CT chest, abdomen, pelvis (ordered to be performed at ) -Pap smear, mammogram, colonoscopy: She prefers to get these done with her PCP. I have asked her toreach out to her PCP. I have also left a message with the covering nurse at her PCPs office -Given her iron deficiency, wonder if she has an underlying GI malignancy -I have also reached out to rheum derm clinic at [facility] again for scheduling her for a skin bxwhich would be helpful here Khoi Crawford MD Rheumatology Fellow Pager: [phone] documented in this encounter Plan of Treatment Not on file documented as of this encounter Results * CT Chest Abdomen [...] who have questions please contact the health daycare manager that requested your imaging first. ? Narrative [...] the thorax is provided for comparison. FINDINGS: Healthcare Prof Images: Noncontributory. CT OF THE CHEST: Pulmonary [...] and glenohumeral joints. Procedure Note Grupo Soto, DO - 05/18/2023 EXAMINATION: CT CHEST ABDOMEN PELVIS W CONTRAST (GENERIC) CLINICAL HISTORY: TIF1-y positive, has calcinosis cutis and skininduration of legs, need to rule out an underlying malignancy given the high prevalencewith TIF1 Y. TECHNIQUE: Helical CT of the chest, abdomen, and pelvis following the intravenous administration of contrast. Administered 84.0 ml of [id number] mg/ml. Oral contrast was administered. COMPARISON: Comparison is made to multiple prior CT of the abdomen andpelvis examinations, the most recent which is dated January 17, 2022. No prior cross-sectional imaging of the thorax is provided for comparison. FINDINGS: Healthcare Prof Images: Noncontributory. CT OF THE CHEST: Pulmonary [...] patients who have questions please contactthe health daycare manager that requested your imaging first. Grant Leos MD IMG CT ORDERABLES documented in this encounter Visit Diagnoses Diagnosis Other dermatomyositis, organ involvement unspecified Other dermatomyositis, organ involvement unspecified documented in this encounter Care Teams Concrete Foreman Relationship Specialty Start Date End Date Renzo Castano, BODY PRESS OPERATOR [address] [place] [address] PCP - General Family Medicine 05/31/21 documented as of this encounter
--- OUTSIDE RECORDS SUMMARY | 2024-03-21 13:59 | XMS_ITS | Encounter Summary ---
Author Organization [facility] Address [facility] [place] [address] Care Team Providers Care Marine Architect Name Role Phone Renzo Castano APRN Primary Care Provider +1- [phone] Encounter Details Date Type Department Care Team (Late st Contact Info) Description 04/04/2023 [facility]phone [facility] [address] [place] [address] Franny Rojas MD [facility] [place] [address] Social History Tobacco Use Types Packs/Day Years [...] * Telephone Encounter - Linn Guy - 04/04/2023 2:35 PM EDT I left a message for Janna Oliver Vernon to get her scheduled for a new patient appointment in the Derm/Rheum clinic on 04/17. documented in this encounter Plan of Treatment Not on file documented as of this encounter Visit Diagnoses Not on filedocumented in this encounter Care Teams Marine Architect Relationship Specialty Start Date End Date Renzo Castano APRN [address] [place] [address] PCP - General Family Medicine 05/31/21 documented as of this encounter
--- OUTSIDE RECORDS SUMMARY | 2024-03-21 13:59 | XMS_ITS | Encounter Summary ---
[place] [address] Care Team Providers Care Gang Supervisor Name Role Phone Renzo Castano APRN Primary Care Provider [phone] Reason for Referral * Home Health Care (Routine) - Closed Specialty Diagnoses / Procedures Referred By Contac t Referred To Contact Diagnoses Chronic pain disorder Spinal stenosis of lumbar region, unspecified whether neurogenic claudication present Neurodermatitis [place] [address] [facility] [address] [place] [address] Referral ID Status Reason Start Date Expiration Date V isits Requested Visits Authorized [id number] Closed Consult, Test & Treat 05/27/2023 11/23/2023 999 999 Reason for Visit * Reason Comments Rash * Auth/Cert (Routine) Specialty Diagnoses / Procedures Referred By Contac t Referred To Contact Diagnoses Rash Procedures [place] [address] [facility] Referral ID Status Reason Start Date Expiration Date Visits Re quested Visits Authorized [id number] 1 1 Encounter Details Date Type Department Care Team (Latest Contact Info) Description 05/22/2023 5:00 AM EDT - 05/27/2023 3:20 PM EDT Hospital Encounter Hematology/Oncolog y Unit Level 1 [place] [id number] Jerman Metcalf MD [facility] [place] [address] [place] [address] [place] [address] [place] [address] [place] [address] Rash; Nausea and vomiting, unspecified vomiting type; Non-intractable cyclical vomiting with nausea; Pain in both lower extremities; Chronic pain disorder; Spinal stenosis of lumbar region, unspecified whether neurogenic claudication present; Neurodermatitis; Hyponatremia; Thyroid nodule Discharge Disposition: Home with VNA Social History Tobacco Use Types Packs/Day Years [...] on file documented as of this encounter Last Filed Vital Signs Vital Sign Reading [...] Mass Index 24.8 05/22/2023 8:53 PM EDT documented in this encounter Discharge Summaries * Earnestine De La Cruz MD - 05/27/2023 3:20 PM EDT Inpatient Hospital Medicine - Discharge Summary Patient Name: Ender Junior Patient Age: 67 y.o. Birthdate: 1955 Admit date: 05/22/2023 Discharge date and time: 05/27/2023 Attending Physician: No att. providers found Follow-up Recommendations for Providers: - Obtain f/u CT scan 6-8 weeks after discharge to assess size of pulmonary nodule - Obtain BMP and f/u on recent coags given elevated INR in the setting of poor PO intake Discharge Diagnoses (Hospital Problems) and Secondary Diagnoses (Chronic Problems): Active Hospital Problems Diagnosis Rash Resolved Hospital Problems No resolved problems to display. Operations/Major Procedures: - N/a History of Presentation: Ender Junior is a 67 y.o. 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 Patient and her family report that she first developed her current painful, arm- , leg- and mouth-blistering rash 4 days ago, 1 day after drinking contrast and getting IV contrast for a scan to evaluate for gastric cancer due to workup of previous lab results, per her description. Patient endorses worsening pain and pruritus to the rash. On the day she developed the rash, she was nauseous and vomited multiple times. Last night she noticed blisters in her mouth and nose. She endorses blisters in her genital area that she sees when she goes to the bathroom. In the past two hours she has grown hoarse, which is new for her. Patient endorses feeling bloated, which has been present over a week. She reports pain with urination. Her urine has been more foamy recently. Several weeks ago she switched to pregabalin from gabapentin; patient has been switching from warfarin to eliquis in the past month, no unusual use or extra doses of blood thinners. Before visiting this hospital, patient went to the ED in [place], and in [facility] in the past 2 days. Patient received steroids at previous hospitals and was discharged with presumed diagnosisof erythema multiforme. She was told to present to this hospital ED by her primary care doctor after developing mucosal blisters. Patient has a history of celiac, so she avoids all wheat product, no diet changes recently. Per chart review, patient tested positive for fclv-YCZ3-dskyf antibody on myositis panel 2 months ago, during work-up of a separate full-body rash. Hospital Course: Ender Junior was hospitalized on the Hospital Medicine service from 05/22/2023-05/27/2023. 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 Patient was initially kept on precautions for VZV or HSV1/2. Superficial skin cultures and PCRs were negative and patient was taken off of precautions on 05/23. Patient continued to improve with topical creams with low suspicion of infectious etiology (disseminated zoster vs bullous impetigo) given lack of other infectious symptoms. Preliminary skin biopsy were suggestive of dermatitis herpetiformis flare or linear IgA bullous dermatitis. #pulmonary nodule #thyroid nodule #c/f malignancy Patient was noted to have b/l apical pulmonary nodules c/w infection vs inflammation and 15mm R thyroid nodule on CT chest/abdomen/pelvis w/ contrast on 05/17. Given recently diagnosed dermatomyositis(TIF1g AB) c/f malignancy, interventional pulmonology was consulted for possible EBUS w/ biopsy. Due to the small size of the nodules, biopsy was deferred with recommendations for repeat CT chest in 6-8 weeks. #elevated INR Patient was noted to have elevated INR ~5 on admission, likely as a result of warfarin usage in thesetting of minimal PO intake. Inpatient pharmacy was consulted and helped with warfarin management.Her INR was noted to be elevated 6.6 after administration of Warfarin 5mg. Warfarin was held for the rest of admission and restarted at reduced dosing (6 -> 1mg) upon discharge with close anticoagulation clinic f/u. #ileus #partial small bowel obstruction Patient had significant nausea and vomiting during her hospitalization. Upright KUBs on 05/23 and 05/24 were c/w ileus or partial bowel obstruction. She continued to have formed BMs during admission. Nausea and emesis were treated with IV compazine and IV metoclopramide given patient's allergies to Zofran. Important Studies and Lab Data: Labs: Recent Labs 05/27/23 05005/26/2343705/25/23421 WBC 6.2 6.7 5.0 HGB 10.3* 10.6* 9.3* PLATELET 197 189 159 Recent Labs 05/27/23 05005/26/238 05/25/23 185 NA 127* 130* 130* K 4.3 4.5 4.3 CL 94* 94* 96* CO2 21* 23 19* BUN 11 13 13 CREATININE 0.89 0.91 0.85 Recent Labs 05/27/23 05005/26/238 05/25/23 185 AST 16 20 19 ALT 22 24 21 ALKPHOS 125* 125* 120* BILITOT 0.6 0.5 0.4 Recent Labs 05/27/23 05005/26/2343705/25/23 1852 05/25/23 0422 CALCIUM 9.4 9.4 9.2 8.9 MAGNESIUM 0.82 0.70 -- 0.73 PHOS 2.9 3.1 -- 2.5 Recent Labs 05/27/23 0509 05/26/23 0438 05/25/23 0422 INR 3.6 6.6* 5.8* PT 40.3* 72.5* 63.6* Radiology/Studies: Results for orders placed or performed during the hospital encounter of 05/22/23 XR Abdomen Flat & Upright (Exam End: 05/23/2023 1:44 AM) Impression Bowel gas pattern favored to represent a mild ileus as described. No large fecal load. I have personally reviewed the image(s) and the resident's interpretation and agree with the findings, Latasha Tierney MD at 05/23/2023 11:20 AM Thank you for letting us participate in the care of this patient. If you are a health care provider and have any questions regarding this report, please contact the number below. For patients who have questions please contact the health care director that requested your imaging first. Electronically signed by: Latasha Tierney MD, [facility] ([phone]), at 05/23/2023 11:20 AM XR Abdomen Flat & Upright (Exam End: 05/24/2023 4:01 PM) Impression Mildly dilated proximal small bowel loops with continued progression of enteric contrast consistent with ileus or partial obstruction. Thank you for letting us participate in the care of this patient. If you are a health care provider and have any questions regarding this report, please contact the number below. For patients who have questions please contact the health care director that requested your imaging first. Electronically signed by: DAIJA SANTIAGO MD, [facility] ([phone]), at 05/24/2023 4:32 PM Pending Studies and Lab Data: No current labs Discharge Conditions/Prognosis: Upon discharge the pt is hemodynamically stable, fully ambulatory without requiring supplemental oxygen, holding down food/drink, afebrile and pain controlled with stable oral regimen. Discharge to: Home with home health Discharge Medications: Your Medications New Medications Dose Details cyanocobalamin (Vitamin B-12) 1,000 mcg tablet Commonly known as: Vitamin B-12 Take 1 tablet by mouth daily. 1,000 mcg Quantity: 90 tablet Refills: 3 hydrocortisone 1 % Cream Apply topically 2 times daily. Quantity: 30 g Refills: 0 warfarin 1 mg tablet Commonly known as: Coumadin Take 1 tablet by mouth daily for 14 doses. Please see your PCP for correct dose going forward 1 mg Quantity: 14 tablet Refills: 0 Continued medications with new dosing Dose Details ferrous gluconate 324 mg (37.5 mg iron) tablet Commonly known as: Ferate Take 1 tablet by mouth three times a week (Mon, Weds, Fri). What changed: Another medication with the same name was removed. Continue taking this medication, and follow the directions you see here. 324 mg Quantity: 60 tablet Refills: 3 nystatin 100,000 unit/mL Suspension Commonly known as: Mycostatin Take 1 mL by mouth 4 times daily for 12 days. What changed: See the new instructions. 100,000 Units Quantity: 48 mL Refills: 0 Continued medications, unchanged Dose Details amitriptyline 10 mg tablet Commonly known as: Elavil Take 20 mg by mouth nightly. 20 mg Refills: 0 baclofen 10 mg tablet Commonly known as: Lioresal Take 10 mg by mouth 2 times daily. 10 mg Refills: 0 CALCIUM 300 ORAL Take by mouth. Refills: 0 cholecalciferol (Vitamin D3) 50 mcg (2,000 unit) Capsule Take 1 capsule by mouth daily. 2,000 Units Quantity: 60 capsule Refills: 2 clobetasoL 0.05 % Solution Commonly known as: TEMOVATE Apply to pruritic areas and scalp on a nightly basis as needed Quantity: 60 mL Refills: 3 dapsone 25 mg tablet Commonly known as: Aczone Take 2 tablets by mouth 2 times daily. 50 mg Quantity: 120 tablet Refills: 5 diphenoxylate-atropine 2.5-0.025 mg tablet Commonly known as: Lomotil Take 1 tablet by mouth 4 times daily as needed. 1 tablet Refills: 0 gabapentin 300 mg capsule Commonly known as: Neurontin Take 1,500 mg by mouth daily. 1,500 mg Refills: 0 HYDROcodone-acetaminophen 10-325 mg tablet Commonly known as: [place] Take 1 tablet by mouth every 6 hours as needed for Pain. 1 tablet Refills: 0 magnesium oxide 400 mg (241.3 mg magnesium) Tablet Commonly known as: Mag-Ox Refills: 0 metFORMIN 1,000 mg tablet Commonly known as: Glucophage Take 1,000 mg by mouth 2 times daily (with meals). 1,000 mg Refills: 0 Miscellaneous Medical Supply Misc 1 Units by Other route. 1 Units Refills: [address] capsule Commonly known as: PriLOSEC TAKE ONE CAPSULE BY MOUTH AT BEDTIME Refills: 0 One Touch Delica 33 gauge Misc TEST TWO TIMES A DAY Generic drug: lancets Refills: 4 OneTouch Ultra Test Strip TEST TWO TIMES A DAY Generic drug: blood sugar diagnostic strips Refills: 5 triamcinolone 0.1 % Cream Commonly known as: Kenalog apply twice daily as needed for dermatitis herpetiformis Quantity: 30 g Refills: 3 STOPPED Medications colchicine 0.6 mg tablet Commonly known as: Colcrys diclofenac 1 % Gel Commonly known as: Voltaren Eliquis 5 mg tablet Generic drug: apixaban minocycline 100 mg capsule Commonly known as: Minocin nitrofurantoin 100 mg capsule Commonly known as: Macrobid selenium sulfide 2.5 % Lotion Updated Allergies/ADRs: Allergies Allergen Reactions Azithromycin Shortness Of Breath Adhesive Tape Rash Amoxicillin Nausea Only Promethazine Other (See Comments) Rizatriptan Sertraline Sulfamethoxazole Sulfamethoxazole-Trimethoprim Tramadol Nausea Only Trimethoprim Venlafaxine Wheat Bran Rash Wheat Flour Rash Wheat Germ Oil Rash Wheat Starch Rash Zofran [Ondansetron Hcl] I dont like it Instructions Given to Patient at Discharge: Patient Instructions Discharge Instructions Why you were hospitalized: You came to the hospital for 4 days of a painful, blistering full-body rash that started the day after you took oral and IV contrast for a scan of your chest and abdomen. You were given supportive care and seen by Dermatology for the rash. They believe this was probably something called an IgA dermatosis rash or an erythema multiforme rash, maybe even similar to your previous dermatitis herpetiformis rash from celiac. There will be better answers once your skin biopsy from the first day finally comes back. Your blood seemed thin with an INR of 5.5 when you came in, so we held your warfarin. When it improved to 3.1, we have you a dose of warfarin, but your INR number went up to 6, probably because of not eating due to feeling sick. Dermatology recommended using creams for your skin rash. They also recommended that we try to get biopsies of any suspicious findings that could be related to your multi-month dermatomyositis rash, in case that could be in response to some unknown cancer. We saw from your CT scan that you had a couple tiny lung nodules, but the lung doctors here said they were too small to biopsy and need to be scanned in 3-4 months. You also had a nodule on yourthyroid, despite normal thyroid blood tests. You had a lot of nausea in the hospital, and you were given different medications like ondansetron and compazine for your nausea. Your blood labs looked good for the most part, but you initially came in with a blood sodium level that was low at 126. It improved over the next few days to 130, which is still low but better. Your rash improved a lot and became less painful over 3-4 days. On the day of your discharge your sodium had dropped again to 127.Your urine labs showed that this low sodium wasn't happening because you weren't drinking enough water, which makes us think this low sodium may be a larger stress response. We recommended that you stay in the hospital to show it would improve, since low sodium can be dangerous and cause confusion or even injury to your body/brain. We also recommended that you stay in the hospital to try to take better liquids and foods by mouth as practice for going home. Since you and your family want to leave today, we recommend getting blood work in the next 1-2 days at [facility] to check your sodium level andsee that it is safely improving. We also checked with Pharmacy, and they recommend taking 1 mg of warfarin until you see your PCP again. Patient Instructions: - Please get a metabolic blood lab drawn at [facility] to check your sodium level - Please take warfarin 1 mg daily (we are giving you 14 tabs of that lower dose) and see your primary care doctor to check how much warfarin you should be eating - Please go to [facility] or another local hospital if you are so nauseous that you cannot drink fluids, especially if you feel you are getting weak or confused - Please follow up with your primary care doctor about your blood work and your recent hospital stay - Please continue to see Dermatology and/or Rheumatology about your previous underlying rash and sothey can review with you the results of your rash biopsy Call your doctor or seek medical attention if you experience any alarming symptoms. This may include, but is not limited to, fever, chest pain, severe shortness of breath, nausea withvomiting, persistent decrease in your urinary output, severe pain, or any other concerning symptoms. Activity level: As tolerated. Diet: No new restrictions. Driving: Please do not drive if you feel lightheaded, dizzy, faint, or taking any opioids/narcotics(i.e oxycodone). It is advisable that you do not drive till you follow-up with your primary care physician. Shower/Bath: No new restrictions. Wound Care: N/A Home Oxygen therapy: N/A Changes in Your Medications: New Medications: Medication dose changes: Stop these medications: Follow-Up Appointments Future Appointments Date Time Provider Department Center 06/14/2023 8:30 AM Khoi Crawford MD [facility] RHEUM [facility] 07/11/2023 1:[address] [facility] [address] [facility] [address] [facility] Rad 07/11/2023 1:40 PM Grupo Onofre MD [facility] PULM [facility] Date and Time Provider and Specialty Location Need to be scheduled Renzo Castano APRN , PCP [address] / [facility] [id number] Your Inpatient Doctor(s) at [facility]: No att. providers found Rachel Coppola MD Your Primary Care Provider: Renzo Castano APRN [address] / [facility] [id number] For questions regarding this document or issues relating to this hospitalization on the Medical Service, please contact your inpatient physician through the [facility] Meat Wrapper . Issues afterhours and on weekends will be handled by the Hospitalist staff on-call. The Department of Hospital Medicine hopes you have a safe and stress free transition out of the hospital. As an additional safeguard to help this transition happen seamlessly we have created a tool to help us stay in communication in case there are any questions or concerns after your discharge. Ifyou are not being discharged to another care setting, where they will take over your medical care, please anticipate a brief questionnaire from our Department that will help us ensure you do not haveany issues with your discharge and are as safe and healthy as possible. This questionnaire will be sent out next business day after your discharge in the morning, and willbe delivered via text primarily but also email if texting is not possible. If there do happen to beany issues or concerns once you leave [facility], we apologize for any undue stress this may cause. Please do not hesitate to call your PCP office or seek further medical assistance if there are any immediate concerns about your health. This questionnaire is not meant to provide immediate access to a physician, but has been created to help us ease the transition out of the hospital. Someone from our department will reach out after the questionnaire is completed if you have raised any concerns, or have requested a callback, to help ensure your concerns are addressed and a plan is madeto keep you safe and healthy. Thank you in advance for your time completing this questionnaire. General Instructions Warfarin (Coumadin??) Instructions for Home: Reason for warfarin (Coumadin??) therapy: Protein C deficiency, history of DVT in 1977 Due to your current elevated INR, your home regimen is being reduced. May 27: Take 1 mg of warfarin by mouth. You did NOT receive a dose at the hospital. May 28: Follow-up with your primary care provider. They have been asked to call you with an appointment time. If you are unable to get an appointment on Sunday, take 1 mg nightly. Reach out to your primary care provider to obtain further dosing instructions. Due to the timing of your discharge, we were unable to schedule an appointment with your primary care provider. We suggest messaging your PCP through your patient portal and request an urgent follow-up appointment for this coming May 28. It is very important that you have your INR checked regularly as your dose may change based on yourlab values. INR goal range: 2.0-3.0 Expected duration of treatment: Indefinite Provider responsible for ongoing outpatient warfarin management: Renzo Castano, [facility] [phone] If you have not received a call from your provider within 24 hours of having your INR drawn, pleasecall your outpatient provider for further dose instructions. Warfarin (Coumadin??) should be taken at the same time every day, preferably after 5:00 pm. It is very important that you take your warfarin as instructed. You received information on warfarin (Coumadin??) while you were in the hospital. It is important for you to remember the following (please see your warfarin (Coumadin??) packet for more information): Your INR can be affected by your diet and other medications you take It is important to maintain a diet with a consistent amount of wkzvqrl-c-mclukbbpkb foods and avoidmajor changes in your diet Do not start or stop taking any prescription medications, eorj-yjb-paktjng medications, dietary supplements or herbal medications without asking your doctor or pharmacist Tell your doctors, pharmacists and other healthcare providers that you take warfarin (Coumadin??) Warfarin (Coumadin??) increases your risk of bleeding If you experience any of these signs or symptoms of bleeding or blood clotting, please seek immediate medical attention: increased pain, swelling or sudden shortness of breath severe headache dizziness unusual bleeding or bruising changes in urine or bowel movement color coughing or spitting up of blood, or nosebleeds that do not stop or occur more often The following table shows your most recent INR results and warfarin (Coumadin??) doses. Please bring this to your first INR check appointment after discharge. Inpatient Warfarin Dose History: Date INR Dose Comments 05/23/23 3.1 5 mg 05/24/23 4.3 Hold 05/25/23 5.8 Hold 05/26/23 6.6 Hold 05/27/23 3.6 1 mg Discharging home. Take dose at home. END Warfarin (Coumadin??) Instructions for Home Future Appointments and Orders Future Appointments and Orders Future Appointments Provider Department Dept Phone 06/14/2023 8:30 AM Khoi Crawford MD Rheumatology at [facility] Arrive at: Nutrition Professor Area [phone] 07/11/2023 1:[address] [facility] [address] CT Scan at [facility] Arrive at: [facility] RADIOLOGY [phone] 07/11/2023 1:40 PM Grupo Onofre MD Pulmonology at [facility] Arrive at: Nutrition Professor Area [phone] Future Orders Complete By Expires Basic Metabolic Panel (non-fasting) [LAB15 Custom] 05/28/2023 06/27/2023 Process Instructions: Scheduling Instructions: Comments: Questions: Referral to Home Health [REF34 Custom] As directed Process Instructions: If no progress note charted, please enter Clinical details in comments. Scheduling Instructions: Comments: Please evaluate Ender Junior for admission to Home Health. [address] [place] [phone] (home) Date of : 1955 Inpatient DOCUMENTATION FOR VNA SERVICES (INCLUDING THOSE PATIENTS WITH MEDICARE COVERAGE REQUIRING HOME VNA SERVICES AND/OR HOSPICE SERVICES) PATIENT'S LOCATION: Ender Junior [address] [place] [phone] (home) Cell: No relevant phone numbers on file. Commodities Trader's Name: Grupo Junior In discussion with the attending physician, it is certified that this patient is under their care and that they, or a Nurse Practitioner, Clinical Nurse specialist or Physician Fur Repair Inspector who is working directly with them, had a face to face encounter that meets the physician face to face encounter requirements with this patient on 05/27/23 (MD please enter DC date here) The encounter with the patient was in whole, or in part, for the following medical condition, whichis the primary reason for home health care services: Weakness in the setting of autoimmune rash In discussion with the provider, it is certified that, based on their findings, the following services are medically necessary for home health services. To provide the following care/treatments with the clinical findings supporting the need for services as follows: HOME CARE ORDERS: PT ORDERS: Continue rehab for endurance, gait stability and strength with mobility and transfers. Home safety evaluation. Home exercise program if appropriate. OT ORDERS: Assess and continue rehab for managing ADLs. HOME HEALTH CARE AGENCY: [facility]. [address] [place] [id number] START OF CARE: Home Health services requested to start in 24-48 hours but Home Health, with limited availability of this service at this time, plan for a SOC. The multidisciplinary team members and patient are aware. In discussion with the attending physician, it is certified that the clinical findings support thatthis patient is homebound because absences from home require considerable and taxing effort due to:Unable to ambulate community surfaces or distances unassisted due to pain, lower extermity weaknessor decreased balance and risk for falls Unsteady gait, poor balance, requiring assistive devices and/or assistance of another. Please note that any additional orders needs or changes will need to be obtained from this patient's PCP: Renzo R [place], [employer] [address] / [facility] [id number] . All [facility] agencies which cover the area of patient's residence have been reviewed, either verbally or in writing, and patie nt/family have chosen the home health care agency noted. Questions: Disciplines Requested: Physical Therapy 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 Therapy Provider Contact Information: Earnestine [place] [address] Discharge References/Attachments: Discharge References/Attachments Vitamin K Diet (Argent[place]) Warfarin Safety Tips ([place]) For questions regarding this document or issues relating to this hospitalization on the Medical Service, please contact your inpatient physician through the [facility] . Issues afterhours and on weekends will be handled by the Hospitalist staff on-call. Signed: Earnestine De La Cruz MD 05/28/2023 Associated attestation - Connor Mantilla MD - 05/28/2023 2:50 PM EDT Worsening hyponatremia on day of discharge. Recommended patient remain in hospital for continued monitoring and therapy of hyponatremia especially given PO intake still poor but she refused. Recommended she obtain repeat serum sodium at laboratory of her choice next day to [facility] sodium level. Stated she would; lab order sent to [facility] lab at her request. documented in this encounter Discharge Instructions * Discharge Instructions* Alyssa Padilla, [facility] - 05/23/2023 2:09 PM EDT Warfarin (Coumadin??) Instructions for Home: Reason for warfarin (Coumadin??) therapy: Protein C deficiency, history of DVT in 1977 Due to your current elevated INR, your home regimen is being reduced. May 27: Take 1 mg of warfarin by mouth. You did NOT receive a dose at the hospital. Sunday, May 28: Follow-up with your primary care provider. They have been asked to call you with an appointment time. If you are unable to get an appointment on Sunday, take 1 mg nightly. Reach out to your primary care provider to obtain further dosing instructions. Due to the timing of your discharge, we were unable to schedule an appointment with your primary care provider. We suggest messaging your PCP through your patient portal and request an urgent follow-up appointment for this coming May 28. It is very important that you have your INR checked regularly as your dose may change based on yourlab values. INR goal range: 2.0-3.0 Expected duration of treatment: Indefinite Provider responsible for ongoing outpatient warfarin management: Renzo Castano APRN [facility] [phone] If you have not received a call from your provider within 24 hours of having your INR drawn, pleasecall your outpatient provider for further dose instructions. Warfarin (Coumadin??) should be taken at the same time every day, preferably after 5:00 pm. It is very important that you take your warfarin as instructed. You received information on warfarin (Coumadin??) while you were in the hospital. It is important for you to remember the following (please see your warfarin (Coumadin??) packet for more information): Your INR can be affected by your diet and other medications you take It is important to maintain a diet with a consistent amount of vlvszdg-x-asujxobntf foods and avoidmajor changes in your diet Do not start or stop taking any prescription medications, zhbg-rkf-svtpgqn medications, dietary supplements or herbal medications without asking your doctor or pharmacist Tell your doctors, pharmacists and other healthcare providers that you take warfarin (Coumadin??) Warfarin (Coumadin??) increases your risk of bleeding If you experience any of these signs or symptoms of bleeding or blood clotting, please seek immediate medical attention: increased pain, swelling or sudden shortness of breath severe headache dizziness unusual bleeding or bruising changes in urine or bowel movement color coughing or spitting up of blood, or nosebleeds that do not stop or occur more often The following table shows your most recent INR results and warfarin (Coumadin??) doses. Please bring this to your first INR check appointment after discharge. Inpatient Warfarin Dose History: Date INR Dose Comments 05/23/23 3.1 5 mg 05/24/23 4.3 Hold 05/25/23 5.8 Hold 05/26/23 6.6 Hold 05/27/23 3.6 1 mg Discharging home. Take dose at home. END Warfarin (Coumadin??) Instructions for Home * Patient Instructions* Rachel Coppola MD - 05/23/2023 7:47 AM EDT Discharge Instructions Why you were hospitalized: You came to the hospital for 4 days of a painful, blistering full-body rash that started the day after you took oral and IV contrast for a scan of your chest and abdomen. You were given supportive care and seen by Dermatology for the rash. They believe this was probably something called an IgA dermatosis rash or an erythema multiforme rash, maybe even similar to your previous dermatitis herpetiformis rash from celiac. There will be better answers once your skin biopsy from the first day finally comes back. Your blood seemed thin with an INR of 5.5 when you came in, so we held your warfarin. When it improved to 3.1, we have you a dose of warfarin, but your INR number went up to 6, probably because of not eating due to feeling sick. Dermatology recommended using creams for your skin rash. They also recommended that we try to get biopsies of any suspicious findings that could be related to your multi-month dermatomyositis rash, in case that could be in response to some unknown cancer. We saw from your CT scan that you had a couple tiny lung nodules, but the lung doctors here said they were too small to biopsy and need to be scanned in 3-4 months. You also had a nodule on yourthyroid, despite normal thyroid blood tests. You had a lot of nausea in the hospital, and you were given different medications like ondansetron and compazine for your nausea. Your blood labs looked good for the most part, but you initially came in with a blood sodium level that was low at 126. It improved over the next few days to 130, which is still low but better. Your rash improved a lot and became less painful over 3-4 days. On the day of your discharge your sodium had dropped again to 127.Your urine labs showed that this low sodium wasn't happening because you weren't drinking enough water, which makes us think this low sodium may be a larger stress response. We recommended that you stay in the hospital to show it would improve, since low sodium can be dangerous and cause confusion or even injury to your body/brain. We also recommended that you stay in the hospital to try to take better liquids and foods by mouth as practice for going home. Since you and your family want to leave today, we recommend getting blood work in the next 1-2 days at [facility] to check your sodium level andsee that it is safely improving. We also checked with Pharmacy, and they recommend taking 1 mg of warfarin until you see your PCP again. Patient Instructions: - Please get a metabolic blood lab drawn at [facility] to check your sodium level - Please take warfarin 1 mg daily (we are giving you 14 tabs of that lower dose) and see your primary care doctor to check how much warfarin you should be eating - Please go to [facility] or another local hospital if you are so nauseous that you cannot drink fluids, especially if you feel you are getting weak or confused - Please follow up with your primary care doctor about your blood work and your recent hospital stay - Please continue to see Dermatology and/or Rheumatology about your previous underlying rash and sothey can review with you the results of your rash biopsy Call your doctor or seek medical attention if you experience any alarming symptoms. This may include, but is not limited to, fever, chest pain, severe shortness of breath, nausea withvomiting, persistent decrease in your urinary output, severe pain, or any other concerning symptoms. Activity level: As tolerated. Diet: No new restrictions. Driving: Please do not drive if you feel lightheaded, dizzy, faint, or taking any opioids/narcotics(i.e oxycodone). It is advisable that you do not drive till you follow-up with your primary care physician. Shower/Bath: No new restrictions. Wound Care: N/A Home Oxygen therapy: N/A Changes in Your Medications: New Medications: Medication dose changes: Stop these medications: Follow-Up Appointments Future Appointments Date Time Provider Department Center 06/14/2023 8:30 AM Khoi Crawford MD [facility] RHEUM [facility] 07/11/2023 1:[address] [facility] [address] [facility] [address] [facility] Rad 07/11/2023 1:40 PM Grupo Onofre MD [facility] PULM [facility] Date and Time Provider and Specialty Location Need to be scheduled Renzo Castano, XIMENA , PCP [address] [facility] [address] / [facility] [id number] Your Inpatient Doctor(s) at [facility]: No att. providers found Rachel Coppola MD Your Primary Care Provider: Renzo Castano, [employer] [address] / [facility] [id number] For questions regarding this document or issues relating to this hospitalization on the Medical Service, please contact your inpatient physician through the [facility] . Issues afterhours and on weekends will be handled by the Hospitalist staff on-call. The Department of Hospital Medicine hopes you have a safe and stress free transition out of the hospital. As an additional safeguard to help this transition happen seamlessly we have created a tool to help us stay in communication in case there are any questions or concerns after your discharge. Ifyou are not being discharged to another care setting, where they will take over your medical care, please anticipate a brief questionnaire from our Department that will help us ensure you do not haveany issues with your discharge and are as safe and healthy as possible. This questionnaire will be sent out next business day after your discharge in the morning, and willbe delivered via text primarily but also email if texting is not possible. If there do happen to beany issues or concerns once you leave [facility], we apologize for any undue stress this may cause. Please do not hesitate to call your PCP office or seek further medical assistance if there are any immediate concerns about your health. This questionnaire is not meant to provide immediate access to a physician, but has been created to help us ease the transition out of the hospital. Someone from our department will reach out after the questionnaire is completed if you have raised any concerns, or have requested a callback, to help ensure your concerns are addressed and a plan is madeto keep you safe and healthy. Thank you in advance for your time completing this questionnaire. * Attachments The following attachments cannot be sent through Care Everywhere. * Vitamin K Diet ([place]) * Warfarin Safety Tips ([place]) documented in this encounter Medications at Time of Discharge Medication Sig Dispensed Refills Start Date End Date cyanocobalamin, Vitamin B-12, (Vitamin B-12) 1,000 mcg tablet Take 1 tablet by mouth daily. 90 tablet 3 05/28/2023 hydrocortisone 1 % Cream Apply topically 2 times daily. 30 g 05/27/2023 calcium carbonate (CALCIUM 300 ORAL) Take by mouth. ferrous gluconate (Ferate) 324 mg (37.5 mg iron) tablet Take 1 tablet by mouth three times a week (Mon, Weds, Fri). 60 tablet 3 04/04/2023 cholecalciferol, Vitamin D3, 50 mcg (2,000 unit) Capsule Take 1 capsule by mouth daily. 60 capsule 2 04/03/2023 Miscellaneous Medical Supply [facility] 1 Units by Other route. 06/17/2009 omeprazole [...] TEST TWO TIMES A DAY 5 03/12/2017 diphenoxylate-atropi ne (LOMOTIL) 2.5-0.025 mg Tablet Take 1 tablet by mouth 4 times daily as needed. 06/12/2017 [facility]CH [facility] A [facility] 4 03/12/2017 HYDROcodone-acetamin ophen (NORCO) 10-325 mg Tablet Take 1 tablet [...] capsule Take 1,500 mg by mouth daily. warfarin (Coumadin) 1 mg tablet Take 1 tablet by mouth daily for 14 doses. Please see your PCP for correct dose going forward 14 tablet 05/27/2023 06/10/2023 nystatin (Mycostatin) 100,000 unit/mL Suspension Take 1 mL by mouth 4 times daily for 12 days. 48 mL 05/27/2023 06/08/2023 documented as of this encounter Progress Notes * Zahraa Mclean RN - 05/27/2023 3:20 PM EDT Efaxed the discharge summary to [facility] at fax # [phone] per their request. * Connor Mantilla MD - 05/27/2023 3:20 PM EDT Hospital Medicine - Attending Day of Discharge Documentation Discharge diagnosis Active Hospital Problems Diagnosis Rash Resolved Hospital Problems No resolved problems to display. Secondary Issues Active Non-Hospital Problems Diagnosis Leg edema, left Anticoagulated on warfarin Depressive disorder Gastroesophageal reflux disease Hyperlipidemia Migraine Obesity Smoker PAD (peripheral artery disease) Intermittent claudication Chronic deep vein thrombosis of left femoral vein Tobacco dependence Non-intractable cyclical vomiting with nausea Bursitis of right shoulder Nocturnal leg cramps Ulnar neuropathy of left upper extremity Spinal stenosis of lumbar region Medial epicondylitis of elbow, left Carpal tunnel syndrome of right wrist Diabetic peripheral neuropathy Diabetes Chronic pain disorder History of pulmonary embolism Dermatitis herpetiformis Neurodermatitis 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 I spent >30 minutes (Day of Discharge Code 67446) involved in the final examination of the patient, discussion of the hospital stay, instructions for continuing care to all relevant caregivers, and preparation of discharge records, prescriptions and referral forms. Plans Discharge to home Follow-up scheduled with Rheumatology and Pulmonology. Post-hospital check to be scheduled with PCP. Recommended to patient that she remain in hospital for continued monitoring of downtrending sodium but she and refused. Had capacity to make this decision. Follow up BMP order sent to [facility] lab - recommended patient have blood drawn tomorrow if possible or next day if lab closed for holiday. to schedule close f/u with PCP. Please see the Discharge Summary for complete details of any medication changes and additional plans. Connor Mantilla MD 05/29/2023 7:10 AM * Grupo Reeves MD - 05/27/2023 3:20 PM EDT Attempted to call patient to discuss results of biopsies. Unable to reach patient by phone. Left voicemail to call our clinic back to discuss results and to assess response to current treatment plan (topical steroids). Reviewed telephone note from derm/rheum clinic which documents attempt to schedule close follow up. Will attempt to call patient again to discuss results and attempt to have patient return to our derm-rheum clinic: A - Right forearm, skin punch biopsy: - Subepidermal blister associated with a dense neutrophil-rich perivascular and interstitial inflammatory infiltrate (see discussion) B - Right forearm, skin DIF perilesional, punch biopsy: - Dense neutrophil-rich perivascular and interstitial inflammatory infiltrate (see discussion) C - Left thigh, skin punch biopsy: - P ositive IgA deposition (diffuse and mostly granular) along the dermoepidermal junction with weak IgM and IgG deposition (see discussion) * Grupo Reeves MD - 05/27/2023 3:20 PM EDT Spoke to patient on the phone and discussed biopsy results. Described clinicopathologic differential and high suspicious for autoimmune blistering disease. Informed patient that I would like to arrange close follow up with the dermatology-rheumatology clinic to assess response to topical steroids and follow up on her other chronic dermatologic conditions. Patient informed me that she does not feel comfortable returning because he gave [her] contrast with wheat when [she] has celiac. When I asked her who she refers to as 'he,' she says Dr. Vance. I informed the patient that the two providers at our derm-rheum clinic are Drs. Cleaning and Bob. She informed me that she will have to think a bout it and is not interested in scheduling follow up right now. I provided her our clinic phone number for her to schedule follow up if and when she is able to. * Earnestine De La Cruz MD - 05/26/2023 8:50 AM EDT MEDICINE PAGER [phone] - [facility] Daily Progress Note Page [phone] to reach a provider 12/03 Admit Date: 05/22/2023 Encounter Date: May 26, 2023 Anticipated Discharge Date: 05/29/2023 Hospital Day: 4 Patient ID: Ender Junior is a 67 y.o. female w/ PMH of celiac disease, protein C deficiency, PAD, DVTs/PEon warfarin, depression and diabetes, admitted to [facility] on 05/22/2023, now on Hospital Day #4, for painful pruritic blistering rash. 24 Hour Events/Subjective: Yesterday: Rash improving Overnight: INR noted 6.6 Today AM: Found ambulating with walker to and from bathroom; 2x formed BMs Still endorsing poor solid food tolerance, able to drink ana shanthi Rash markedly improved Objective: Vitals: Last value Range last 24 hrs Temperature Temp: 37.1 ??C (98.8 ??F) Temp: [36.5 ??C (97.7 ??F)-37.4 ??C (99.3 ??F)] Heart Rate Heart Rate: 94 Heart Rate: -- Blood Pressure BP: 157/82 BP: (157-189)/(79-97) Art Line BP BP (Arterial Line): -- MAP (NBP): [106 mmHg-127 mmHg] Respiratory Rate Resp: 18 Resp: [18-20] SpO2 SpO2: 94 % SpO2: [91 %-95 %] Oxygen Delivery Oxygen Therapy O2 Device: None (Room air) Intake/Output Summary (Last 24 hours) at 05/26/2023 0850 Last data filed at 05/26/2023 0849 Gross per 24 hour Intake 480 ml Output 800 ml Net -320 ml I/O last 3 completed shifts: In: 182 [P.O.:660; I.V.:1163] Out: 1999 [Urine:2000] Body mass index is 24.8 kg/m??. Patient Vitals for the past 168 hrs: Weight 05/22/232052 61.5 kg (135 lb 9.6 oz) Admit wt: 61.51 kg Exam: GENERAL: Awake, alert, no acute distress HEENT: Anicteric, no conjunctival injection. Several resolving erythematous macules over central and right forehead CV: RRR, no murmurs/rubs/gallops, 2+ radial/DP pulses PULM: Normal respiratory effort, CTA with good air entry bilaterally, no rales/rhonchi/wheezes ABDOMEN: Soft, non-tender, non-distended, no masses, no guarding EXTREMITIES: No lower extremity edema, no clubbing or cyanosis. Left lower leg with stiff skin texture compared to right, non-tender PSYCH/NEURO: Appropriate affect and cognition SKIN: Warm, dry. Rash over thighs, abdomen, and arms improving. Several large bullae on left lateral upper arm resolving. Clinical images in media file Labs CBC: Recent Labs 05/26/2343705/25/2342105/24/23820 WBC 6.7 5.0 3.8* HGB 10.6* 9.3* 9.2* HCT 31.0* 28.0* 27.7* PLATELET 189 159 164 NEUTROABS 4.74 3.39 2.53 Chemistry: Recent Labs 05/26/2343705/25/23185105/23/23345 NA 130* 130* 131* K 4.5 4.3 5.1* CL 94* 96* 100 CO2 23 19* 21* BUN 13 13 25* CREATININE 0.91 0.85 1.11 GLUCOSE 137 123 128 ANIONGAP 13 15 10 Recent Labs 05/26/2343705/25/23185105/25/2342105/24/23 08 CALCIUM 9.4 9.2 8.9 8.9 MAGNESIUM 0.70 -- 0.73 0.82 PHOS 3.1 -- 2.5 2.6 LFT's: Recent Labs 05/26/2343705/25/23185105/23/23345 BILITOT 0.5 0.4 0.3 ALBUMIN 3.8 3.5 3.2 ALKPHOS 125* 120* 114* ALT 24 21 18 AST 20 19 16 Coags: Recent Labs 05/26/2343705/25/2342105/24/2382005/23/2301 05/22/23 0600 PT 72.5* 63.6* 47.3* 34.8* 61.9* INR 6.6* 5.8* 4.3 3.1 5.5* PTT 53* 48* 46* 46* 42* FIBRINOGEN 394* -- -- -- -- Recent Labs 05/26/23 0438 05/25/23 0422 05/24/23 0821 INR 6.6* 5.8* 4.3 Cardiac enzymes: Recent Labs 03/12/23 1156 CK 65 Endocrine: Recent Labs 05/22/23 0553 TSH 2.54 Recent Labs 03/12/23 1156 HA1C 4.6 Lipids: Heme: No results for input(s): LDH, HAPTOGLOBIN, URICACID in the last 168 hours. ABG (Arterial Blood Gas): No results found for: PHART, PO2ART, JBV7NPA, KED5NDF VBG (Venous Blood Gas): No results for input(s): PHVEN, VZY8XPJ, PO2VEN, KMC1URI, BEVEN, FRZ0WBV in the last 72 hours. Vascular: No results found for: VBTEXTRPT Microbiology No results found for: URINECULTURE Lab Results Component Value Date/Time GRAMSTAIN Rare Neutrophils seen No microorganisms seen. 05/22/20231553 Lab Results Component Value Date/Time BLOODCX No growth at 3 days. 05/22/20232205 BLOODCX No growth at 3 days. 05/22/2023 06 Microbiology Results (Last 30 days) Procedure Component Value Units Date/Time Blood culture [[id number]] Collected: 05/22/232205 Lab Status: Preliminary result Specimen: Blood Updated: 05/25/23 2301 Blood Culture No growth at 3 days. Skin/Superficial Wound Culture [[id number]] Collected: 05/22/231553 Lab Status: Final result Specimen: Swab(s) from Arm, Left Updated: 05/24/23 1129 Skin/Superficial Wound Culture No growth Gram Stain -- Rare Neutrophils seen No microorganisms seen. VZV PCR, Dermal [[id number]] Collected: 05/22/231553 Lab Status: Final result Specimen: Vesicle Updated: 05/23/23 0631 VZV PCR Not Detected VZV PCR Source Vesicle HSV 1 and 2 PCR [[id number]] Collected: 05/22/23 1554 Lab Status: Final result Specimen: Vesicle Updated: 05/23/23 0634 HSV-1 PCR Not Detected HSV-2 PCR Not Detected HSV Source Vesicle Comment: The only FDA approved specimen types for this assay are CSF and genital lesions. COVID-19 PCR [[id number]] Collected: 05/22/23 0730 Lab Status: Final result Specimen: Nasopharyngeal Swab Updated: 05/22/23 1210 SARS-CoV-2 RNA PCR Not Detected Comment: This result should be interpreted in combination with the clinical observations, patient history and epidemiological information. For testing of asymptomatic individuals, assay performance characteristics and clinical utility have not been evaluated. Testing for SARS-CoV-2 (Severe acute respiratory syndrome coronavirus 2, formerly known as 2019 novel coronavirus or 2019-nCoV) to aid in the diagnosis of COVID-19 is performed using the Simplexa COVID-19 Direct Assay by Mobile [employer] as authorized by the FDA issued Emergency Use Authorization (EUA). This assay is intended for In-vitro Diagnostic (IVD) use with nasopharyngeal swabs collected from individuals meeting the CDC criteria for testing. The assay is performed based on the instructions for use and additional guidance provided by the FDA. Testing is performed in the Microbiology Laboratory within the Department of Pathology and Laboratory Medicine at [facility], certified under the Clinical Laboratory Improvement Amendments of 1988 (CLIA), 42 U.S.C. section 263a, to perform high complexity tests. Assay performance has been verified according to clinical laboratory regulatory requirements. Test results are provided above. A result of Not Detected indicates that the viral RNA target is not present but does not preclude SARS-CoV-2 infection. False negative results may occur if a specimen is improperly collected, transported or handled; if amplification inhibitors are present; or if inadequate numbers of viral particles are present in the specimen. A result of Detected suggests a current or recent infection and the patient is presumed to be infected. Positive and negative predictive values for this test are highly dependent on disease prevalence. A result of Invalid indicates the inability to conclusively determine the presence or absence of SARS-CoV-2 RNA in the sample which can be due to a variety of factors. Recollection is recommended in the case of an invalid result. CDC COVID-19 criteria for testing on human specimens and clinical management guidance information are available at the CDC Coronavirus Disease 2019 (COVID-19) webpage under Information for Healthcare Professionals (https://www.cdc.gov/coronavirus/2019-ncov/hcp/index.html). Additional information about this and other EUA tests can be found in provider and patient fact sheets at the following FDA website: https://www.fda.gov/medical-devices/hubjqjvmkxo-ssldacg-6023-qszjx-12-scwegrudi- afx-tmkgutntmbdufi-ywyjypg-devices/tuttr-ogixierrkad-waon SARS-CoV-2 Source [employer] Swab Rapid Influenza A/B and RSV PCR ([facility]) [[id number]] Collected: 05/22/23 0730 Lab Status: Final result Specimen: Nasopharyngeal Swab Updated: 05/22/23 1210 Influenza A PCR Not Detected Influenza B PCR Not Detected RSV PCR Not Detected Resp PCR Source [employer] Swab Blood culture [[id number]] Collected: 05/22/23 0600 Lab Status: Preliminary result Specimen: Blood Updated: 05/25/23 1501 Blood Culture No growth at 3 days. Imaging Results for orders placed or performed during the hospital encounter of 05/22/23 (from the past 48 hour(s)) XR Abdomen Flat & Upright (Exam End: 05/24/2023 4:01 PM) Impression Mildly dilated proximal small bowel loops with continued progression of enteric contrast consistent with ileus or partial obstruction. Thank you for letting us participate in the care of this patient. If you are a health care provider and have any questions regarding this report, please contact the number below. For patients who have questions please contact the health care director that requested your imaging first. Electronically signed by: DAIJA SANTIAGO MD, [facility] ([phone]), at 05/24/2023 4:32 PM ECG Lab Results Component Value Date/Time DIAGLINE 05/24/20233 Normal sinus rhythm Septal infarct (cited on or before 22-MAY-2023) Abnormal ECG When compared with ECG of 22-MAY-2023 06:24, No significant change was found Confirmed by MD Mili, Sergio Orta ([id number]) on 05/25/2023 10:23:24 AM QTCCALC 452 05/24/2023 1853 Consultants IP CONSULT TO DERMATOLOGY IP ADMISSION REQUEST IP CONSULT TO DERMATOLOGY IP CONSULT TO PSYCHIATRY IP CONSULT TO PHARMACY IP CONSULT TO PHYSICAL THERAPY IP CONSULT TO OCCUPATIONAL THERAPY IP CONSULT TO INTERVENTIONAL PULMONOLOGY IP CONSULT TO PHYSICAL THERAPY IP CONSULT TO OCCUPATIONAL THERAPY Assessment: Ender Junior is a 67 y.o. 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 05/26: Rash continues to improve with topical hydrocortisone per dermatology. Suspect autoimmune blistering disease (dermatitis herpetiformis vs IgA bullous dermatosis). Will need follow-up for suspicious lung lesion and for thyroid nodule. Interventional pulmonology consulted, although lesion will require surgical biopsy. INR elevated at 6.6 in the setting of receiving home warfarin 5mg on 05/23 with INR of 3.1. Will continue to trend coags; patient does not have current bleeding. Consider reversal agents (PCC) if bleeding. Continues to have significant nausea/vomiting, although improving. Reports 2x well-formed BMs this AM. Maintains on scheduled bowel regimen. New thrush noted on tongue with prior history of thrush; will start nystatin swishes. Plan: # painful pruritic rash # possible erythema multiforme # history of dermatomyositis, dermatitis herpetiformis - Consulted Derm: suspect dermatitis herpetiformis vs IgA bullous dermatosis - triamcinolone cream, hydrocortisone cream, hydroxyzine - increase dapsone 50 -> 75mg BID per derm recs # history of protein C deficiency # supra-therapeutic INR # DVT, PE - INR 5.8 -> 6.6 - pharmacy consult for warfarin - no active bleeding - consider reversal for bleeds - monitor INR #nausea/emesis, improving #anorexia #thrush - IV compazine 10mg q6h for nausea - KUB 05/23, 05/24 with ileus, partial obstruction - senna-docusate, Miralax BID - start nystatin swishes # hyponatremia, Na 130 - iso-osmolar - suspect hypovolemia, trend w/ IVFs # Depression # Anxiety - Cont amitriptyline - Cont hydroxyzine # DM - Consider starting weight based insulin Housekeeping: DVT Prophylaxis: Warfarin Diet: Gluten Free diet Last BM documented: 06/01/23 Discharge Location: AM-PAC Basic Mobility Raw Score: 18 PT: Anticipated Discharge Disposition (PT): to be determined pending medical status & functional progression Anticipated Equipment Needs at Discharge (PT): to be determined OT: Code status: Attempt Cardiopulmonary Resuscitation - Inpatient PCP: Renzo Castano, [employer] [phone] Active Hospital Problems Diagnosis Rash Resolved Hospital Problems No resolved problems to display. Earnestine De La Cruz MD PGY2 IM Medicine Team: Cinthya, Pager #[phone] Date: 05/26/2023 Associated attestation - Connor Mantilla MD - 05/26/2023 4:51 PM EDT INR continuing to rise. PO intake somewhat improved today. Will ctm INR, dc possibly tomorrow if stable or decreasing. C/o of b/l LE tremors in the afternoon, appears to be RLS though she denies hx of this. Has hx of NIKI/low ferritin. Will start ferrous sulfate and gabapentin. Also f/u repeat ferritin, iron studies, vit D3, B12 in the AM. Attending Attestation and Certification Please see Earnestine De La Cruz MD's note for details of the patient history of presentation and data. I havediscussed, reviewed and agree with the documented History, Physical findings, Assessment and Plan of care. I have examined the patient myself and personally reviewed all studies. In addition, I certify thatI am a [facility]-H credentialed attending provider with admitting privileges and that the patient meets or has met medical necessity to require an inpatient IPI level of care meeting a minimum of two midnights or is on the CMS inpatient only procedure list (status C) due to: Rising INR and poor PO intake requiring close monitoring. * Linnea Hernandez RN - 05/25/2023 7:29 PM EDT OUTCOME EVALUATION NOTE: OUTCOME SUMMARY: Pt c/o continuous nausea, no emesis. Poor PO intake, pt encouraged to drink PO fluids, but has not drank much. Refused PT/OT today. Pt did have BM today (05/25), voiding in bathroom. BP elevated SBP elevated 180s, 5 mg IV hydral administered with minimal effect, PO amlodipine started. Rash/blisters still present. Family at bedside throughout day, supportive of patient. PLAN MOVING FORWARD: Encourage PO intake Pain control Mobilize D/c planning INDIVIDUALIZED FALL PREVENTION: Patient is currently a high risk to fall. Pt is refusing bed alarm,education provided on fall prevention and fall risk factors, still refusing bed alarm. Patient-specific fall risk factors per assessment: [current deficits]: Pain, Medications, Hospital Environment. Assistance [level of assistance required for transfers and ambulation]: 1 assist with walker Supervision [direct monitoring required during toileting and ADLs]: Eyes on per unit protocol when OOB/with ADL's Surveillance [continuous indirect monitoring]: Radha, Purposeful Rounding, Nurse Knowledge Exchange * Dorian Broderick MD - 05/25/2023 4:26 PM EDT Images from the original note were not included. DERMATOLOGY - INPATIENT PROGRESS NOTE Admit Date: 05/22/2023 Hospital Day 3 days Problem List: Active Hospital Problems Diagnosis Rash Resolved Hospital Problems No resolved problems to display. Visit date: 05/25/2023 Dermatology Resident: Dorian Broderick MD Summary: Ender Junior is a 67 y.o. 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 Protein C deficiency D68.59 Right knee pain M25.561 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 L28.0 Spinal stenosis of lumbar region M48.061 Intermittent claudication I73.9 Chronic deep vein thrombosis of left femoral vein I82.512 Tobacco dependence F17.200 PAD (peripheral artery disease) I73.9 Anticoagulated on warfarin Z79.01 Bursitis of right shoulder M75.51 Carpal tunnel syndrome of right wrist G56.01 Chronic pain disorder G89.4 Depressive disorder F32.A Diabetes E11.9 Diabetic peripheral neuropathy E11.42 Gastroesophageal reflux disease K21.9 History of pulmonary embolism Z86.711 Hyperlipidemia E78.5 Medial epicondylitis of elbow, left M77.02 Migraine G43.909 Nocturnal leg cramps G47.62 Non-intractable cyclical vomiting with nausea R11.15 Obesity E66.9 Smoker F17.200 Ulnar neuropathy of left upper extremity G56.22 Leg edema, left R60.0 Rash R21 Meds: Scheduled Meds: hydrocortisone Topical (Top) BID senna-docusate 1 tablet Oral BID polyethylene glycoL (MIRALAX) oral powder 17 g Oral BID dapsone 50 mg Oral BID warfarin (Coumadin) daily order reminder Oral Q24H sodium chloride 0.9 % (flush) 5 mL Intravenous BID amitriptyline 20 mg Oral Nightly baclofen 10 mg Oral BID pantoprazole EC 40 mg Oral Daily sodium chloride 0.9 % (flush) 5 mL Intravenous BID hydrOXYzine 50 mg Oral Nightly Continuous Infusions: PRN Meds:.acetaminophen, bisacodyL, prochlorperazine, sodium chloride 0.9 % (flush), lidocaine, sodium chloride 0.9 % (flush), lidocaine Allergies: Allergies Allergen Reactions Azithromycin Shortness Of Breath Adhesive Tape Rash Amoxicillin Nausea Only Promethazine Other (See Comments) Rizatriptan Sertraline Sulfamethoxazole Sulfamethoxazole-Trimethoprim Tramadol Nausea Only Trimethoprim Venlafaxine Wheat Bran Rash Wheat Flour Rash Wheat Germ Oil Rash Wheat Starch Rash Zofran [Ondansetron Hcl] I dont like it Laboratory: Reviewed in the chart. Imaging: Reviewed in the chart. Physical Exam: Last Set of Vital Signs and range of Vitals over past 24 hours: Last value Range last 24 hrs Temperature Temp: 36.7 ??C (98.1 ??F) Temp: [36.5 ??C (97.7 ??F)-36.8 ??C (98.2 ??F)] Heart Rate Heart Rate: 94 Heart Rate: -- Blood Pressure BP: 181/89 BP: (160-188)/(80-89) Respiratory Rate Resp: 20 Resp: [16-20] SpO2 SpO2: 95 % SpO2: [93 %-96 %] Constitutional: Patient was resting comfortably in NAD Skin: The following skin areas were examined: face, conjunctival/nasal/oral mucosa, trunk, and extremities. Significant findings of the exam are stated below in the Assessment and Plan. Description/Assessment/Plan: #. 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 - Rapidly progressive onset and spread of urticarial lesions with new blisters beginning 05/21/23, several days following CT C/A/P with IV and PO contrast - Workup: HSV1/2 and VZV PCRs (negative), superficial skin culture (no growth) and BCx (NGTD at 2d) - Current treatment: triamcinolone cream (bid to trunk and extremities) - Recently diagnosed dermatomyositis (with TIF1g AB)--this positive serology is very concerning gus occult malignancy-- patient needs to have f/u with pulmonology for malignancy work up and endocrinology due to possibility of thyroid malignancy - Had previous diagnosis of dermatitis herpetiformis (on home dapsone 50 mg daily) - Lower suspicion for infectious etiology (e.g., disseminated zoster or bullous impetigo) given lack of fever, systemic symptoms, and negative viral and bacterial swabs - Morphology and mucosal involvement can be suggestive of linear IgA bullous dermatosis (LABD). Medications are common triggers but patient does not report any new medications. There are no reports of contrast-induced LABD. - Blisters can be secondary to a flare of dermatitis herpetiformis, especially given concomitant GIsymptoms. Oral contrast (iohexol) does not appear to have gluten as an ingredient which makes this less likely a trigger. - Bullous erythema multiforme is less likely given lack of true targetoid lesions on examination - Given raised nature of rash, lack of desquamation, and lack of significant serous/hemorrhagic crusting of mucosal surfaces, severe cutaneous drug reaction such as SJS/TEN unlikely at this time. - Preliminary read of skin biopsies points towards flare of dermatitis herpetiformis or LABD as being the top differential dx. Recommendations: - Continue ice packs and Rx: triamcinolone 0.01% cream: Apply twice daily to affected pink pruriticand/or blistered areas on the trunk and extremities. Performed as wet wraps as instructed below. - Continue Rx: hydrocortisone 1-2.5% cream: Apply twice daily to affected pink pruritic and/or blistered areas on the face. - Continue Rx: hydroxyzine 50 mg PO qhs for symptomatic relief of skin discomfort - Consider starting Rx: hydroxyzine 25 mg PO daily PRN in the morning or afternoon for daytime itch - Follow up interventional pulmonary recs for workup of radiographic pulmonary findings - Recommend GI consult for persistent abdominal discomfort (given history of celiac disease and acute worsening of symptoms in association with rash eruption) - Recommend increasing prior to admission dapsone from 50mg BID to 75mg BID Instructions for Wet Wraps: Please perform the followin. Apply thin layer of triamcinolone 0.1% cream to the patients neck, chest, abdomen, back, upper and lower extremities, hands and feet. Avoid placing on the face, armpits and groin. Approximately 2 pounds of triamcinolone cream are required per day 2. After steroid creams have been applied, cover the patient (neck, trunk both front and back, extremities with cotton towels or sheets soaked with room temperature water or saline. 3. Cover with blankets 4. Leave in place for 1.5-2 hours, remove towels, pat dry 5. Apply Vaseline liberally 6. Please repeat this cycle two times daily The following photos were obtained with patient consent: Follow-up: Dermatology will continue to follow. Please do not hesitate to contact us if you have any questionsor concerns. Impression and Recommendations discussed with primary team on 05/25/2023. Dorian Broderick MD Resident in Dermatology [facility] Pager: [phone] Patient evaluated with staff icu registered nurse: Dory Wilson MD Section of Dermatology [facility] Associated attestation - Dory Wilson MD - 05/31/2023 5:22 PM EDT I directly supervised the resident during this inpatient consult visit. The resident presented the history and physical exam to me. I then saw and examined this patient with the resident. We reviewedthe history and pertinent details and I confirmed the physical exam findings. I agree with the details of the findings and plan of care as documented in the resident physician's note. Dory Wilson MD Staff Physician * Melany Tijerina OT - 05/25/2023 11:30 AM EDT 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 Therapy Note Document Type: contact Total Minutes, 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 Therapy: 15 Reason: 05/25/23 1130 Evaluation & Treatment Document Type contact Total Minutes, 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 Therapy 15 Comment, Session Not Performed OT orders received and chart review completed. Patient semi supine in bed, reporting nausea and that she did not want to get OOB with therapy. Spouse and daughter present in room and able to assist with home setup and PLOF. Patient eventually asked therapy to leave room. Indep with ADL/IADl tasks, + driving. Step in shower with tub/shower seat and handheld shower. Has WC and RW. Pager: [phone] Melany Tijerina OT 05/25/2023 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 Therapy Rehabilitation Department * Rachel Coppola MD - 05/25/2023 6:39 AM EDT MEDICINE PAGER [phone] - [facility] Daily Progress Note Page [phone] to reach a provider 12/03 Admit Date: 05/22/2023 Encounter Date: May 25, 2023 Anticipated Discharge Date: 05/27/2023 Hospital Day: 3 Patient ID: Ender Junior is a 67 y.o. female w/ PMH of celiac disease, protein C deficiency, PAD, DVTs/PEon warfarin, depression and diabetes, admitted to [facility] on 05/22/2023, now on Hospital Day #3, for painful pruritic blistering rash. 24 Hour Events/Subjective: Yesterday: Abdominal radiogram for nausea and pain showing mildly dilated small bowel consistent with ileus orpartial obstruction Used oxycodone once for rash pain Overnight: No acute events Today AM: Rash improving, less pain Patient endorses nausea despite compazine PRNs overnight. Passing gas, last BM was yesterday Objective: Vitals: Last value Range last 24 hrs Temperature Temp: 36.5 ??C (97.7 ??F) Temp: [36.5 ??C (97.7 ??F)-36.9 ??C (98.4 ??F)] Heart Rate Heart Rate: 94 Heart Rate: -- Blood Pressure BP: 168/87 BP: (160-168)/(77-87) Art Line BP BP (Arterial Line): -- MAP (NBP): [105 mmHg-114 mmHg] Respiratory Rate Resp: 16 Resp: [16-20] SpO2 SpO2: 96 % SpO2: [93 %-96 %] Oxygen Delivery Oxygen Therapy O2 Device: None (Room air) Intake/Output Summary (Last 24 hours) at 05/25/2023 0639 Last data filed at 05/25/2023 0600 Gross per 24 hour Intake 200 ml Output 2650 ml Net -2450 ml I/O last 3 completed shifts: In: 700 [P.O.:440; IV Piggyback:260] Out: 3950 [Urine:3900; Emesis/NG output:50] Body mass index is 24.8 kg/m??. Patient Vitals for the past 168 hrs: Weight 05/22/232052 61.5 kg (135 lb 9.6 oz) Admit wt: 61.51 kg Exam: GENERAL: Awake, alert, no acute distress HEENT: Anicteric, no conjunctival injection. Several resolving erythematous macules over central and right forehead CV: RRR, no murmurs/rubs/gallops, 2+ radial/DP pulses PULM: Normal respiratory effort, CTA with good air entry bilaterally, no rales/rhonchi/wheezes ABDOMEN: Soft, non-tender, non-distended, no masses, no guarding EXTREMITIES: No lower extremity edema, no clubbing or cyanosis. Left lower leg with stiff skin texture compared to right, non-tender PSYCH/NEURO: Appropriate affect and cognition SKIN: Warm, dry. Erythematous non-blanching macular rash in large circles coalescing into plaques, improvement in erythema from 3 days ago, over the trunk julia-umbilical abdomen and back, best seen on thighs, sparing the palms and soles. Several large bullae on left lateral upper arm. Clinical images in media file Labs CBC: Recent Labs 05/25/2342105/24/2382005/23/23345 WBC 5.0 3.8* 4.5 HGB 9.3* 9.2* 9.9* HCT 28.0* 27.7* 31.4* PLATELET 159 164 188 NEUTROABS 3.39 2.53 2.79 Chemistry: Recent Labs 05/23/2334505/22/23220505/22/23 0647 05/22/23 0553 NA 131* 131* 128* 126* K 5.1* 4.9 5.1* Not Perf CL 100 101 95* 94* CO2 21* 20* 22 21* BUN 25* 27* 32* 33* CREATININE 1.11 1.21* 1.33* 1.32* GLUCOSE 128 -- 95 99 ANIONGAP 10 10 11 11 Recent Labs 05/25/2342105/24/23 0821 05/23/23 0346 CALCIUM 8.9 8.9 8.8 MAGNESIUM 0.73 0.82 0.92 PHOS 2.5 2.6 2.5 LFT's: Recent Labs 05/23/2334505/22/23 0647 05/22/23 0553 BILITOT 0.3 0.3 0.3 ALBUMIN 3.2 3.9 3.9 ALKPHOS 114* 127* 134* ALT 18 20 Not Perf AST 16 17 Not Perf Coags: Recent Labs 05/25/23 0422 05/24/23 0821 05/23/23 0901 05/22/23 0600 PT 63.6* 47.3* 34.8* 61.9* INR 5.8* 4.3 3.1 5.5* PTT 48* 46* 46* 42* Recent Labs 05/25/23 0422 05/24/23 0821 05/23/23 0901 INR 5.8* 4.3 3.1 Cardiac enzymes: Recent Labs 03/12/23 1156 CK 65 Endocrine: Recent Labs 05/22/23 0553 TSH 2.54 Recent Labs 03/12/23 1156 HA1C 4.6 Lipids: Heme: No results for input(s): LDH, HAPTOGLOBIN, URICACID in the last 168 hours. ABG (Arterial Blood Gas): No results found for: PHART, PO2ART, FDW2VPO, TYT9QQZ VBG (Venous Blood Gas): No results for input(s): PHVEN, SME2YZC, PO2VEN, OKA4DHU, BEVEN, SRG0EMY in the last 72 hours. Vascular: No results found for: VBTEXTRPT Microbiology Date Type Result No results found for: URINECULTURE Lab Results Component Value Date/Time GRAMSTAIN Rare Neutrophils seen No microorganisms seen. 05/22/20231553 Lab Results Component Value Date/Time BLOODCX No growth at 2 days. 05/22/20232205 BLOODCX No growth at 2 days. 05/22/2023 06 Microbiology Results (Last 30 days) Procedure Component Value Units Date/Time Blood culture [[id number]] Collected: 05/22/232205 Lab Status: Preliminary result Specimen: Blood Updated: 05/24/23 2302 Blood Culture No growth at 2 days. Skin/Superficial Wound Culture [[id number]] Collected: 05/22/231553 Lab Status: Final result Specimen: Swab(s) from Arm, Left Updated: 05/24/23 1129 Skin/Superficial Wound Culture No growth Gram Stain -- Rare Neutrophils seen No microorganisms seen. VZV PCR, Dermal [[id number]] Collected: 05/22/231553 Lab Status: Final result Specimen: Vesicle Updated: 05/23/23 0631 VZV PCR Not Detected VZV PCR Source Vesicle HSV 1 and 2 PCR [[id number]] Collected: 05/22/23 1554 Lab Status: Final result Specimen: Vesicle Updated: 05/23/23 0634 HSV-1 PCR Not Detected HSV-2 PCR Not Detected HSV Source Vesicle Comment: The only FDA approved specimen types for this assay are CSF and genital lesions. COVID-19 PCR [[id number]] Collected: 05/22/23 0730 Lab Status: Final result Specimen: Nasopharyngeal Swab Updated: 05/22/23 1210 SARS-CoV-2 RNA PCR Not Detected Comment: This result should be interpreted in combination with the clinical observations, patient history and epidemiological information. For testing of asymptomatic individuals, assay performance characteristics and clinical utility have not been evaluated. Testing for SARS-CoV-2 (Severe acute respiratory syndrome coronavirus 2, formerly known as 2019 novel coronavirus or 2019-nCoV) to aid in the diagnosis of COVID-19 is performed using the [employer] COVID-19 Direct Assay by [employer] as authorized by the FDA issued Emergency Use Authorization (EUA). This assay is intended for In-vitro Diagnostic (IVD) use with nasopharyngeal swabs collected from individuals meeting the CDC criteria for testing. The assay is performed based on the instructions for use and additional guidance provided by the FDA. Testing is performed in the Microbiology Laboratory within the Department of Pathology and Laboratory Medicine at [facility], certified under the Clinical Laboratory Improvement Amendments of 1988 (CLIA), 42 U.S.C. section 263a, to perform high complexity tests. Assay performance has been verified according to clinical laboratory regulatory requirements. Test results are provided above. A result of Not Detected indicates that the viral RNA target is not present but does not preclude SARS-CoV-2 infection. False negative results may occur if a specimen is improperly collected, transported or handled; if amplification inhibitors are present; or if inadequate numbers of viral particles are present in the specimen. A result of Detected suggests a current or recent infection and the patient is presumed to be infected. Positive and negative predictive values for this test are highly dependent on disease prevalence. A result of Invalid indicates the inability to conclusively determine the presence or absence of SARS-CoV-2 RNA in the sample which can be due to a variety of factors. Recollection is recommended in the case of an invalid result. CDC COVID-19 criteria for testing on human specimens and clinical management guidance information are available at the CDC Coronavirus Disease 2019 (COVID-19) webpage under Information for Healthcare Professionals (https://www.cdc.gov/coronavirus/2019-ncov/hcp/index.html). Additional information about this and other EUA tests can be found in provider and patient fact sheets at the following FDA website: https://www.fda.gov/medical-devices/ufsnzxsyais-kyezjyo-0727-xtafo-66-msfynmvyd- jlb-tgvnkuoiquqmgg-ckvcdzo-devices/woljo-tvajoxdbbuo-bbxq SARS-CoV-2 Source [employer] Swab Rapid Influenza A/B and RSV PCR ([facility]) [[id number]] Collected: 05/22/23 0730 Lab Status: Final result Specimen: Nasopharyngeal Swab Updated: 05/22/23 1210 Influenza A PCR Not Detected Influenza B PCR Not Detected RSV PCR Not Detected Resp PCR Source [employer]NAG[employer] EXEC[employer]IVE Swab Blood culture [[id number]] Collected: 05/22/23 0600 Lab Status: Preliminary result Specimen: Blood Updated: 05/24/23 1501 Blood Culture No growth at 2 days. Imaging Results for orders placed or performed during the hospital encounter of 05/22/23 (from the past 48 hour(s)) XR Abdomen Flat & Upright (Exam End: 05/24/2023 4:01 PM) Impression Mildly dilated proximal small bowel loops with continued progression of enteric contrast consistent with ileus or partial obstruction. Thank you for letting us participate in the care of this patient. If you are a health care provider and have any questions regarding this report, please contact the number below. For patients who have questions please contact the health care director that requested your imaging first. Electronically signed by: DAIJA SANTIAGO MD, [facility] ([phone]), at 05/24/2023 4:32 PM ECG Lab Results Component Value Date/Time DIAGLINE 05/24/2023 1853 Normal sinus rhythm Septal infarct (cited on or before 22-MAY-2023) Abnormal ECG When compared with ECG of 22-MAY-2023 06:24, No significant change was found QTCCALC 452 05/24/2023 1853 Consultants IP CONSULT TO DERMATOLOGY IP ADMISSION REQUEST IP CONSULT TO DERMATOLOGY IP CONSULT TO PSYCHIATRY IP CONSULT TO PHARMACY IP CONSULT TO PHYSICAL THERAPY IP CONSULT TO OCCUPATIONAL THERAPY IP CONSULT TO INTERVENTIONAL PULMONOLOGY Assessment: Ender Junior is a 67 y.o. 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 Patient's INR is elevated again to 5.8, perhaps in the setting of her eating poorly around nausea; her warfarin dose was held, and she does not have signs of bleeding on exam. Her hyponatremia is similar today to 131. Yesterday's repeat abdominal radiogram showed mild ileus with small bowel loop dilation, no SBO despite persistence of her nausea. We appreciate the insight of Dermatology about treatment and workup of her rash. Their differentialis still somewhat broad, including linear IgA bullous dermatosis, paraneoplastic pemphigus, and bullous erythema multiforme. Her CT Abdomen Pelvis was largely normal but did include findings of a small pulmonary nodule; after speaking with Interventional Pulmonology, the nodule is too small to biopsy and work up, and should instead be followed up outpatient in several months. Plan: # painful pruritic rash # possible erythema multiforme # history of dermatomyositis, dermatitis herpetiformis - Consulted Derm: broad differential, pending biopsies - triamcinolone cream, hydrocortisone cream, hydroxyzine - discontinue oxycodone 5mg PO q4h, infrequent use and may be contributing to nausea # history of protein C deficiency # supra-therapeutic INR # DVT, PE - pharmacy consult for warfarin - monitor INR # hyponatremia - improving # Depression # Anxiety - Cont amitriptyline - Cont hydroxyzine # DM - Consider starting weight based insulin Housekeeping: DVT Prophylaxis: Warfarin Diet: Gluten Free diet Last BM documented: 05/23/23 Discharge Location: AM-PAC Basic Mobility Raw Score: 18 PT: OT: Code status: Attempt Cardiopulmonary Resuscitation - Inpatient PCP: Renzo Castano, [employer] [phone] Active Hospital Problems Diagnosis Rash Resolved Hospital Problems No resolved problems to display. Rachel Coppola MD Psychiatry PGY1, on Internal Medicine Medicine Team: Cinthya, Pager #[phone] Date: 05/25/2023 Associated attestation - Henrique Land MD - 05/25/2023 4:03 PM EDT I have seen the patient and reviewed the resident's above history and physical exam. I agree with the details as written. The assessment and plan were formulated in discussion with me and I agree with them as documented. Still nausea, wants ativan for this but given risk of prolonged nausea we are building up non-benzoantiemetic schedule. She can do some assisted ADLs and retired wants to take her home tomorrow so she can finish recovery at home. We are waiting for her to show she can drink at least 5 cupstoday. We are also weaning down opioids given early ileus (on some chronically for back pain) Rash improving on topical triamcinalone. We talked with that its not at all clear that she has lung cancer but needs follow up imaging. She has some PO oral contrast reaction but explained that IV contrast likely ok for surveillance. Buddy Land MD IPI Certification I certify that I am a D-H credentialed attending provider with admitting privileges and that the patient meets or has met medical necessity to require an inpatient IPI level of care meeting a minimumof two midnights or is on the [facility] inpatient only procedure list (status C) due to: uncontrolled pain requiring titration of medications to achieve optimal effect and to minimize immediate or severe side effects * Jocelyn Mendoza RN - 05/25/2023 3:55 AM EDT OUTCOME EVALUATION NOTE: OUTCOME SUMMARY: 05/24 PM: Pt A&Ox4, VSS on RA. Patient much more comfortable through the night, patient became anxious at one point and a second dose of atarax ordered and given, concern for akathisia per MD. Tylenol added to MAR for slight headache through the night. One time dose ativan given for nausea. INR resulted critical at 5.8, MD notified, no new orders at this time, no signs of active bleeding. Patient's IV infiltrated, IV team came to assess and pulled it, new IV placed. Patient resting between care. PLAN MOVING FORWARD: Pain control (PRN PO oxycodone and SUBCUT Dilaudid) Nausea control Monitor generalized rash/blisters Monitor result review for skin biopsy (in progress) INDIVIDUALIZED FALL PREVENTION INTERVENTIONS: Patient-specific fall risk factors per assessment: [current deficits]: x1 PIV, generalized weakness Assistance [level of assistance required for transfers and ambulation]: SBA with walker Supervision [direct monitoring required during toileting and ADLs]: Yes 1:1 sitter for SI Surveillance [continuous indirect monitoring]: N/A Masimo refusal. Patient-specific fall prevention interventions for sensory deficits provided, if applicable: [X] N/A * Grupo Reeves MD - 05/24/2023 4:32 PM EDT Images from the original note were not included. DERMATOLOGY - INPATIENT PROGRESS NOTE Admit Date: 05/22/2023 Hospital Day 2 days Problem List: Active Hospital Problems Diagnosis Rash Resolved Hospital Problems No resolved problems to display. Visit date: 05/24/2023 Dermatology Resident: Grupo Reeves MD Summary: Ender Junior is a 67 y.o. 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 Protein C deficiency D68.59 Right knee pain M25.561 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 L28.0 Spinal stenosis of lumbar region M48.061 Intermittent claudication I73.9 Chronic deep vein thrombosis of left femoral vein I82.512 Tobacco dependence F17.200 PAD (peripheral artery disease) I73.9 Anticoagulated on warfarin Z79.01 Bursitis of right shoulder M75.51 Carpal tunnel syndrome of right wrist G56.01 Chronic pain disorder G89.4 Depressive disorder F32.A Diabetes E11.9 Diabetic peripheral neuropathy E11.42 Gastroesophageal reflux disease K21.9 History of pulmonary embolism Z86.711 Hyperlipidemia E78.5 Medial epicondylitis of elbow, left M77.02 Migraine G43.909 Nocturnal leg cramps G47.62 Non-intractable cyclical vomiting with nausea R11.15 Obesity E66.9 Smoker F17.200 Ulnar neuropathy of left upper extremity G56.22 Leg edema, left R60.0 Rash R21 Meds: Scheduled Meds: hydrocortisone Topical (Top) BID dapsone 50 mg Oral BID warfarin (Coumadin) daily order reminder Oral Q24H sodium chloride 0.9 % (flush) 5 mL Intravenous BID amitriptyline 20 mg Oral Nightly baclofen 10 mg Oral BID pantoprazole EC 40 mg Oral Daily sodium chloride 0.9 % (flush) 5 mL Intravenous BID hydrOXYzine 50 mg Oral Nightly Continuous Infusions: PRN Meds:.HYDROmorphone, metoclopramide, sodium chloride 0.9 % (flush), lidocaine, sodium chloride 0.9 % (flush), lidocaine, oxyCODONE Allergies: Allergies Allergen Reactions Azithromycin Shortness Of Breath Adhesive Tape Rash Amoxicillin Nausea Only Promethazine Other (See Comments) Rizatriptan Sertraline Sulfamethoxazole Sulfamethoxazole-Trimethoprim Tramadol Nausea Only Trimethoprim Venlafaxine Wheat Bran Rash Wheat Flour Rash Wheat Germ Oil Rash Wheat Starch Rash Zofran [Ondansetron Hcl] I dont like it Laboratory: Reviewed in the chart. Imaging: Reviewed in the chart. Physical Exam: Last Set of Vital Signs and range of Vitals over past 24 hours: Last value Range last 24 hrs Temperature Temp: 36.9 ??C (98.4 ??F) Temp: [36.9 ??C (98.4 ??F)-37.2 ??C (99 ??F)] Heart Rate Heart Rate: 94 Heart Rate: -- Blood Pressure BP: 161/77 BP: (161-166)/(77-81) Respiratory Rate Resp: 18 Resp: [18] SpO2 SpO2: 93 % SpO2: [93 %-96 %] Constitutional: Patient was resting comfortably in NAD Skin: The following skin areas were examined: face, conjunctival/nasal/oral mucosa, trunk, and extremities. Significant findings of the exam are stated below in the Assessment and Plan. Description/Assessment/Plan: #. Autoimmune Blistering Disease (Linear IgA Bullous Dermatosis vs. Flare of Dermatitis Herpetiformis vs. Paraneoplastic Pemphigus) vs. Bullous Erythema Multiforme vs. Less Likely Systemic Contact Dermatitis or AGEP - annular and polycyclic edematous gamble to pink plaques on the bilateral forearms and thighs; interval coalescing of tense vesicles on an erythematous base on the bilateral upper extremities; tense bullae have ruptured and eroded on the face; faint purple macules on the bilateral palms; no evidence of conjunctival, oral, or vulvar mucosal erosions/crusting. - Rapidly progressive onset and spread of urticarial lesions with new blisters beginning 05/21/23, several days following CT C/A/P with IV and PO contrast - Workup: HSV1/2 and VZV PCRs (negative), superficial skin culture (no growth) and BCx (NGTD at 2d) - Current treatment: triamcinolone cream (bid to trunk and extremities) - Dermatologic history significant for recently diagnosed dermatomyositis (with TIF1g AB) and dermatitis herpetiformis (on home dapsone 50 mg daily) - Lower suspicion for infectious etiology (e.g., disseminated zoster or bullous impetigo) given lack of fever, systemic symptoms, and negative viral and bacterial swabs - Morphology and mucosal involvement can be suggestive of linear IgA bullous dermatosis (LABD). Medications are common triggers but patient does not report any new medications. There are no reports of contrast-induced LABD - Blisters can be secondary to a flare of dermatitis herpetiformis, especially given concomitant GIsymptoms. Oral contrast (iohexol) does not appear to have gluten as an ingredient which makes this less likely a trigger. - Bullous erythema multiforme is possible given facial, mucosal, and distal extremity involvement, though there are no true targetoid lesions on examination - Given raised nature of rash, lack of desquamation, and lack of significant serous/hemorrhagic crusting of mucosal surfaces, severe cutaneous drug reaction such as SJS/TEN unlikely at this time. - AGEP less likely given lack of pustules at this moment - Awaiting reads of punch biopsies for H&E x 2 and DIF x 1 Recommendations: - Continue ice packs and Rx: triamcinolone 0.01% cream: Apply twice daily to affected pink pruriticand/or blistered areas on the trunk and extremities. Performed as wet wraps as instructed below. - Continue Rx: hydrocortisone 1-2.5% cream: Apply twice daily to affected pink pruritic and/or blistered areas on the face. - Continue Rx: hydroxyzine 50 mg PO qhs for symptomatic relief of skin discomfort - Consider starting Rx: hydroxyzine 25 mg PO daily PRN in the morning or afternoon for daytime itch - Follow up interventional pulmonary recs for workup of radiographic pulmonary findings - Recommend GI consult for persistent abdominal discomfort (given history of celiac disease and acute worsening of symptoms in association with rash eruption) Instructions for Wet Wraps: Please perform the followin. Apply thin layer of triamcinolone 0.1% cream to the patients neck, chest, abdomen, back, upper and lower extremities, hands and feet. Avoid placing on the face, armpits and groin. Approximately 2 pounds of triamcinolone cream are required per day 2. After steroid creams have been applied, cover the patient (neck, trunk both front and back, extremities with cotton towels or sheets soaked with room temperature water or saline. 3. Cover with blankets 4. Leave in place for 1.5-2 hours, remove towels, pat dry 5. Apply Vaseline liberally 6. Please repeat this cycle two times daily The following photos were obtained with patient consent: Follow-up: Dermatology will continue to follow. Please do not hesitate to contact us if you have any questionsor concerns. Impression and Recommendations discussed with primary team on 05/24/2023. Grupo Reeves MD Resident in Dermatology [facility] Pager: [phone] Patient evaluated with staff icu registered nurse: Dory Wilson MD Section of Dermatology [facility] Associated attestation - Dory Wilson MD - 05/25/2023 2:47 PM EDT I was the supervising physician working with the dermatology resident during this patient's inpatient consult visit. The level of resident supervision for this patient visit was indirect supervision with direct supervision immediately available (definition: [facility] GME Policy Statement on Graduate Medical Education, Supervision of Graduate Medical Trainees). The resident and I discussed the patient's history, exam, laboratory/test results, and plan together. I was immediately available to the resident physician for any additional questions or discussion regarding this patient. I agree with the details of the findings and plan of care as documented in the resident physician's note. I have reviewed the encounter note details and level of service. Dory Wilson MD Staff Physician * Gerry Yeung - 05/24/2023 1:57 PM EDTSummary: progress report Images from the original note were not included. DERMATOLOGY - INPATIENT PROGRESS NOTE Admit Date: 05/22/2023 Hospital Day 2 days Problem List: Active Hospital Problems Diagnosis Rash Resolved Hospital Problems No resolved problems to display. Visit date: 05/24/2023 Summary: Ender Junior is a 67 y.o. 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 Protein C deficiency D68.59 Right knee pain M25.561 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 L28.0 Spinal stenosis of lumbar region M48.061 Intermittent claudication I73.9 Chronic deep vein thrombosis of left femoral vein I82.512 Tobacco dependence F17.200 PAD (peripheral artery disease) I73.9 Anticoagulated on warfarin Z79.01 Bursitis of right shoulder M75.51 Carpal tunnel syndrome of right wrist G56.01 Chronic pain disorder G89.4 Depressive disorder F32.A Diabetes E11.9 Diabetic peripheral neuropathy E11.42 Gastroesophageal reflux disease K21.9 History of pulmonary embolism Z86.711 Hyperlipidemia E78.5 Medial epicondylitis of elbow, left M77.02 Migraine G43.909 Nocturnal leg cramps G47.62 Non-intractable cyclical vomiting with nausea R11.15 Obesity E66.9 Smoker F17.200 Ulnar neuropathy of left upper extremity G56.22 Leg edema, left R60.0 Rash R21 Meds: Scheduled Meds: hydrocortisone Topical (Top) BID dapsone 50 mg Oral BID warfarin (Coumadin) daily order reminder Oral Q24H sodium chloride 0.9 % (flush) 5 mL Intravenous BID amitriptyline 20 mg Oral Nightly baclofen 10 mg Oral BID pantoprazole EC 40 mg Oral Daily sodium chloride 0.9 % (flush) 5 mL Intravenous BID hydrOXYzine 50 mg Oral Nightly Continuous Infusions: PRN Meds:.HYDROmorphone, metoclopramide, sodium chloride 0.9 % (flush), lidocaine, sodium chloride 0.9 % (flush), lidocaine, oxyCODONE Allergies: Allergies Allergen Reactions Azithromycin Shortness Of Breath Adhesive Tape Rash Amoxicillin Nausea Only Promethazine Other (See Comments) Rizatriptan Sertraline Sulfamethoxazole Sulfamethoxazole-Trimethoprim Tramadol Nausea Only Trimethoprim Venlafaxine Wheat Bran Rash Wheat Flour Rash Wheat Germ Oil Rash Wheat Starch Rash Zofran [Ondansetron Hcl] I dont like it Laboratory: Reviewed in the chart. Imaging: Reviewed in the chart. Physical Exam: Last Set of Vital Signs and range of Vitals over past 24 hours: Last value Range last 24 hrs Temperature Temp: 36.9 ??C (98.4 ??F) Temp: [36.3 ??C (97.3 ??F)-37.5 ??C (99.5 ??F)] Heart Rate Heart Rate: 94 Heart Rate: -- Blood Pressure BP: 161/77 BP: (124-166)/(68-84) Respiratory Rate Resp: 18 Resp: [18-19] SpO2 SpO2: 93 % SpO2: [93 %-96 %] Constitutional: Patient was NAD, laying in bed. Skin: The following skin areas were examined scalp, face, conjunctiva, nasal mucosa, oral mucosa, trunk, and extremities, vulva, and buttocks. Significant findings of the exam are stated below in theAssessment and Plan. Description/Assessment/Plan: #. Linear IgA bullous dermatosis vs. disseminated zoster v. bullous erythema multiforme vs. dermatitis herpetiformis vs. paraneoplastic pemphigus vs less likely AGEP vs bullous impetigo vs systemic contact dermatitis - Polycyclic, edematous pink-light brown plaques on the bilateral forearms, thighs, back, and abdomen; tense vesicles/bullae on an erythematous base on the face (including nares), ears, and bilateral upper extremities, smaller in size today; faint purple macules on the bilateral palms; no evidence of conjunctival, oral, or vulvar mucosal erosions/crusting. - biopsies and DIF pending, will be helpful in narrowing differential. -Drug induced linear IgA possible considering history of DH and may mimic EM, however, contrast induced IgA has not been reported in the literature. Major medications implicated include NSAIDs (diclofenac d/c 05/22, reports taking at home). No recent use of vancomycin, captopril, lasix, and sulfas and pcn. Confirmation pending pathology/IF. Dapsone is considered first line treatment, continue withpatient's home dosing. - Presence of tense bullae of erythematous base could also be suggestive of other primary dermatologic diseases (e.g., acute exacerbation of dermatitis herpetiformis, bullous impetigo, linear IgA bullous dermatosis, paraneoplastic pemphigus from possible occult visceral malignancy, systemic allergic contact dermatitis). - Bullous erythema multiforme is possible given facial, mucosal, and distal extremity involvement, although no true targetoid lesions on examination - Infectious etiology less likely- Neg VZV/ HSV, NGTD on wound cultures, no fever/ leukocytosis or systemic symptoms.Downtrending WBC likely dilutional as all cell lines have slightly depreciated. Will continue to trend. - Given raised nature of rash, lack of desquamation, and lack of significant serous/hemorrhagic crusting of mucosal surfaces, severe cutaneous drug reaction such as SJS/TEN unlikely at this time. - AGEP less likely given lack of pustules at this moment - Recommend expedited workup for occult pulmonary neoplasm given recent findings of pulmonary nodules noted on recent CT scan given patient's recent diagnosis of dermatomyositis with TIF-1 gamma antibodies which can be suggestive of an underlying visceral malignancy. - Recommend GI consultation for abdominal discomfort and nausea (given history of celiac disease and acute worsening of symptoms in association with rash eruption) Plan: - continue ice packs and Rx: triamcinolone 0.01% cream: Apply twice daily to affected areas on the trunk and extremities for symptomatic relief of skin discomfort -start RX: Hydrocortisone 2.5% ointment to the face for 7-10 days and take a week off and repeat asneeded Discussed side effects and risks with chronic use including: glaucoma and cataracts with facial useand atrophy and ulceration on other areas of the body with prolonged daily use - continue Rx: hydroxyzine 50 mg PO qhs for symptomatic relief of skin discomfort - biopsies and DIF pending The following photos were obtained with patient consent: Media Information Media Information Document Information Media Information Document Information Photographic Image: Photographs - Images 05/24/2023 14:14 Attached To: Hospital Encounter on 05/22/23 Source Information Gerry Yeung [facility] . Media Information Document Information Photographic Image: Photographs - Images 05/24/2023 14:14 Attached To: Hospital Encounter on 05/22/23 Source Information Gerry Yeung [facility] Media Information Document Information Photographic Image: Photographs - Images 05/24/2023 14:14 Attached To: Hospital Encounter on 05/22/23 Source Information Gerry Yeung [facility] Photographic Image: Photographs - Images 05/24/2023 14:14 Attached To: Hospital Encounter on 05/22/23 Source Information Gerry Yeung [facility] Follow-up: Dermatology will continue to follow. Please do not hesitate to contact us if you have any questionsor concerns. Impression and Recommendations discussed with Dr. Wilson's team on 05/24/2023. Gerry Yeung, [place] Department of Dermatology [facility] * Gucci Miller MD - 05/24/2023 6:56 AM EDT MEDICINE PAGER [phone] - [facility] Daily Progress Note Page [phone] to reach a provider 12/03 Admit Date: 05/22/2023 Encounter Date: May 24, 2023 Anticipated Discharge Date: 05/25/2023 Hospital Day: 2 Patient ID: Ender Junior is a 67 y.o. female w/ PMH of celiac disease, protein C deficiency, PAD, DVTs/PEon warfarin, depression and diabetes, admitted to [facility] on 05/22/2023, now on Hospital Day #2, for painful pruritic blistering rash. 24 Hour Events/Subjective: Yesterday: Continued on acyclovir IV for concern for disseminated zoster, discontinuing today due to negative labs Overnight: No acute events Today AM: Still having pain around rash but feels it is under control with pain meds right now Rash improving Mood is okay; she does not want to leave the hospital right now if it means going home and still being sick Per nursing, patient endorsing nausea despite reglan PRNs, and has some vomiting today Objective: Vitals: Last value Range last 24 hrs Temperature Temp: 37.2 ??C (99 ??F) Temp: [36.3 ??C (97.3 ??F)-37.5 ??C (99.5 ??F)] Heart Rate Heart Rate: 94 Heart Rate: -- Blood Pressure BP: 166/81 BP: (122-166)/(68-84) Art Line BP BP (Arterial Line): -- MAP (NBP): [86 mmHg-109 mmHg] Respiratory Rate Resp: 18 Resp: [15-20] SpO2 SpO2: 96 % SpO2: [94 %-96 %] Oxygen Delivery Oxygen Therapy O2 Device: None (Room air) Intake/Output Summary (Last 24 hours) at 05/24/2023 0657 Last data filed at 05/24/2023 0400 Gross per 24 hour Intake 700 ml Output 2500 ml Net -1800 ml I/O last 3 completed shifts: In: 490 [P.O.:480; I.V.:10] Out: 1700 [Urine:1700] Body mass index is 24.8 kg/m??. Patient Vitals for the past 168 hrs: Weight 05/22/232052 61.5 kg (135 lb 9.6 oz) Admit wt: 61.51 kg Exam: GENERAL: Awake, alert, no acute distress HEENT: Anicteric, no conjunctival injection. Several resolving erythematous macules over central and right forehead. Several mucosal blisters encircling the inferior border of the nares bilaterally CV: RRR, no murmurs/rubs/gallops, 2+ radial/DP pulses PULM: Normal respiratory effort, CTA with good air entry bilaterally, no rales/rhonchi/wheezes ABDOMEN: Soft, non-tender, non-distended, no masses, no guarding EXTREMITIES: No lower extremity edema, no clubbing or cyanosis. Left lower leg with stiff skin texture compared to right, non-tender PSYCH/NEURO: Appropriate affect and cognition SKIN: Warm, dry. Erythematous non-blanching macular rash in large circles coalescing into plaques, improvement in erythema from 2 days ago, over the trunk julia-umbilical abdomen and back, but best seen on thighs, sparing the palms and soles. Large bulla on left lateral upper arm. Clinical images inmedia file Labs CBC: Recent Labs 05/23/23 0346 05/22/23 0553 03/12/23 1156 WBC 4.5 9.0 5.6 HGB 9.9* 10.6* 10.3* HCT 31.4* 32.5* 33.0* PLATELET 188 233 173 NEUTROABS 2.79 6.48* 3.49 Chemistry: Recent Labs 05/23/23 0346 05/22/23 2206 05/22/23 0647 05/22/23 0553 NA 131* 131* 128* 126* K 5.1* 4.9 5.1* Not Perf CL 100 101 95* 94* CO2 21* 20* 22 21* BUN 25* 27* 32* 33* CREATININE 1.11 1.21* 1.33* 1.32* GLUCOSE 128 -- 95 99 ANIONGAP 10 10 11 11 Recent Labs 05/23/23 0346 05/22/23220505/22/23 0647 05/22/23 0553 CALCIUM 8.8 8.6 9.2 9.5 MAGNESIUM 0.92 -- -- 0.98 PHOS 2.5 -- -- 3.0 LFT's: Recent Labs 05/23/23 0346 05/22/23 0647 05/22/23 0553 BILITOT 0.3 0.3 0.3 ALBUMIN 3.2 3.9 3.9 ALKPHOS 114* 127* 134* ALT 18 20 Not Perf AST 16 17 Not Perf Coags: Recent Labs 05/23/23 0901 05/22/23 0600 PT 34.8* 61.9* INR 3.1 5.5* PTT 46* 42* Recent Labs 05/23/23 0901 05/22/23 0600 INR 3.1 5.5* Cardiac enzymes: Recent Labs 03/12/23 1156 CK 65 Endocrine: Recent Labs 05/22/23 0553 TSH 2.54 Recent Labs 03/12/23 1156 HA1C 4.6 Lipids: Heme: No results for input(s): LDH, HAPTOGLOBIN, URICACID in the last 168 hours. ABG (Arterial Blood Gas): No results found for: PHART, PO2ART, OWT8XKC, NKF7WMY VBG (Venous Blood Gas): Recent Labs 05/22/23 0610 PHVEN 7.34 LUE4VAU 46 PO2VEN 34 RFM8DRO 24.3 BEVEN -1.5 Vascular: No results found for: VBTEXTRPT Microbiology Date Type Result No results found for: URINECULTURE Lab Results Component Value Date/Time GRAMSTAIN Rare Neutrophils seen No microorganisms seen. 05/22/2023 155 Lab Results Component Value Date/Time BLOODCX No growth at 1 day. 05/22/20232205 BLOODCX No growth at 1 day. 05/22/2023 06 Microbiology Results (Last 30 days) Procedure Component Value Units Date/Time Blood culture [[id number]] Collected: 05/22/232205 Lab Status: Preliminary result Specimen: Blood Updated: 05/23/232300 Blood Culture No growth at 1 day. Skin/Superficial Wound Culture [[id number]] Collected: 05/22/231553 Lab Status: Preliminary result Specimen: Swab(s) from Arm, Left Updated: 05/23/23 1311 Skin/Superficial Wound Culture No growth to date. Gram Stain -- Rare Neutrophils seen No microorganisms seen. VZV PCR, Dermal [[id number]] Collected: 05/22/23 1554 Lab Status: Final result Specimen: Vesicle Updated: 05/23/23 0631 VZV PCR Not Detected VZV PCR Source Vesicle HSV 1 and 2 PCR [[id number]] Collected: 05/22/23 155 Lab Status: Final result Specimen: Vesicle Updated: 05/23/23 0634 HSV-1 PCR Not Detected HSV-2 PCR Not Detected HSV Source Vesicle Comment: The only FDA approved specimen types for this assay are CSF and genital lesions. COVID-19 PCR [[id number]] Collected: 05/22/23 0730 Lab Status: Final result Specimen: Nasopharyngeal Swab Updated: 05/22/23 1210 SARS-CoV-2 RNA PCR Not Detected Comment: This result should be interpreted in combination with the clinical observations, patient history and epidemiological information. For testing of asymptomatic individuals, assay performance characteristics and clinical utility have not been evaluated. Testing for SARS-CoV-2 (Severe acute respiratory syndrome coronavirus 2, formerly known as 2019 novel coronavirus or 2019-nCoV) to aid in the diagnosis of COVID-19 is performed using the Simplexa COVID-19 Direct Assay by Mobile Armor as authorized by the FDA issued Emergency Use Authorization (EUA). This assay is intended for In-vitro Diagnostic (IVD) use with nasopharyngeal swabs collected from individuals meeting the CDC criteria for testing. The assay is performed based on the instructions for use and additional guidance provided by the FDA. Testing is performed in the Microbiology Laboratory within the Department of Pathology and Laboratory Medicine at [facility], certified under the Clinical Laboratory Improvement Amendments of 1988 (CLIA), 42 U.S.C. section 263a, to perform high complexity tests. Assay performance has been verified according to clinical laboratory regulatory requirements. Test results are provided above. A result of Not Detected indicates that the viral RNA target is not present but does not preclude SARS-CoV-2 infection. False negative results may occur if a specimen is improperly collected, transported or handled; if amplification inhibitors are present; or if inadequate numbers of viral particles are present in the specimen. A result of Detected suggests a current or recent infection and the patient is presumed to be infected. Positive and negative predictive values for this test are highly dependent on disease prevalence. A result of Invalid indicates the inability to conclusively determine the presence or absence of SARS-CoV-2 RNA in the sample which can be due to a variety of factors. Recollection is recommended in the case of an invalid result. CDC COVID-19 criteria for testing on human specimens and clinical management guidance information are available at the CDC Coronavirus Disease 2019 (COVID-19) webpage under Information for Healthcare Professionals (https://www.cdc.gov/coronavirus/2019-ncov/hcp/index.html). Additional information about this and other EUA tests can be found in provider and patient fact sheets at the following FDA website: https://www.fda.gov/medical-devices/kguzpesqcvo-stmwnmp-8399-jguyk-48-rpwslqmkg- iva-xkrxodrdsolaux-kscdhys-devices/scytz-xcgtkeguvdq-mplr SARS-CoV-2 Source [employer]IVE Swab Rapid Influenza A/B and RSV PCR ([facility]) [[id number]] Collected: 05/22/23 0730 Lab Status: Final result Specimen: Nasopharyngeal Swab Updated: 05/22/23 1210 Influenza A PCR Not Detected Influenza B PCR Not Detected RSV PCR Not Detected Resp PCR Source [employer]NA[employer] EX[employer]IVE Swab Blood culture [[id number]] Collected: 05/22/23 0600 Lab Status: Preliminary result Specimen: Blood Updated: 05/23/23 1501 Blood Culture No growth at 1 day. Imaging Results for orders placed or performed during the hospital encounter of 05/22/23 (from the past 48 hour(s)) XR Abdomen Flat & Upright (Exam End: 05/23/2023 1:44 AM) Impression Bowel gas pattern favored to represent a mild ileus as described. No large fecal load. I have personally reviewed the image(s) and the resident's interpretation and agree with the findings, Latasha Tierney MD at 05/23/2023 11:20 AM Thank you for letting us participate in the care of this patient. If you are a health care provider and have any questions regarding this report, please contact the number below. For patients who have questions please contact the health care director that requested your imaging first. Electronically signed by: Latasha Tierney MD, [facility] ([phone]), at 05/23/2023 11:20 AM ECG Lab Results Component Value Date/Time DIAGLINE 05/22/2023 06 Normal sinus rhythm Septal infarct , age undetermined Abnormal ECG No previous ECGs available I personally reviewed the tracing and edited the fellows interpretation Confirmed by fellow Rudy Lund ([id number]) on 05/22/2023 9:13:23 AM Confirmed by Dov Rich ([id number]) on 05/22/2023 1:36:35 PM QTCCALC 433 05/22/2023 0624 Consultants IP CONSULT TO DERMATOLOGY IP ADMISSION REQUEST IP CONSULT TO DERMATOLOGY IP CONSULT TO PSYCHIATRY IP CONSULT TO PHARMACY Assessment: Ender Junior is a 67 y.o. 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 On exam her rash seems to be improving in terms of color and painfulness. On lab work, her JASON has improved and her INR is improved to 3.1 today (initially 5.5) now back on warfarin but held last night due to supratherapeutic range. Her hyponatremia is improved today to 131. LFTs continue to be normal. Yesterday's abdominal radiogram showed mild ileus with small bowel loop dilation in the LLQ. Today she is having some persistent nausea and vomiting despite multiple PRN anti-emetics, so we will repeat KUB and consider placing an NG tube for persistent SBO symptoms. It is unclear what would be causing an SBO, given that her CT Abd/Pelvis did not show obstructions and her rash is thought to be systemic; we will consider crossover with etiologies of her rash. We appreciate the insight of Dermatology about treatment and workup of her rash. Their differentialis still somewhat broad, including linear IgA bullous dermatosis, paraneoplastic pemphigus, and bullous erythema multiforme. Fortunately, zoster testing was negative. Her CT Abdomen Pelvis was largely normal but did include findings of a small pulmonary nodule and a lobulated thyroid growth; we will reach out to Interventional Pulmonology today, and other services as needed. Plan: # painful pruritic rash # possible erythema multiforme # history of dermatomyositis, dermatitis herpetiformis - Consulted Derm: broad differential, pending biopsies - triamcinolone cream, hydrocortisone cream, hydroxyzine - consider GI consult, depending on KUB today - interventional pulm, possibly ENT for visceral malignancy work-up - pain regimen: oxycodone 5mg PO q4h # history of protein C deficiency # supra-therapeutic INR # DVT, PE - pharmacy consult for warfarin - monitor INR # hyponatremia - improving # Depression # Anxiety - Cont amitriptyline - Cont hydroxyzine # DM - Consider starting weight based insulin Housekeeping: DVT Prophylaxis: Warfarin Diet: Gluten Free diet Last BM documented: 05/21/23 Discharge Location: [facility] Basic Mobility Raw Score: 18 PT: OT: Code status: Attempt Cardiopulmonary Resuscitation - Inpatient PCP: Renzo Castano, [employer] [phone] Active Hospital Problems Diagnosis Rash Resolved Hospital Problems No resolved problems to display. Rachel Coppola MD Psychiatry PGY1, on Internal Medicine Medicine Team: Cinthya, Pager #[phone] Date: 05/24/2023 I have seen the patient and reviewed the resident's above history and physical exam. I agree with the details as written. The assessment and plan were formulated in discussion with me and I agree with them as documented. Major issues addressed/ Plan: Plan to clarify primary diagnosis for rash with Dermatology today. Her rash is improving but continues to develop blisters. Pain is also improved with current regimen and SI improved now that she is getting pain relief. Her abdominal pain is improved today but she doesreport nausea and constipation. AXR was consistent with mild ileus. Plan to optimize her bowel regimen. Gucci Miller MD IPI Certification I certify that I am a [facility] credentialed attending provider with admitting privileges and that the patient meets or has met medical necessity to require an inpatient IPI level of care meeting a minimumof two midnights or is on the CMS inpatient only procedure list (status C) due to: uncontrolled pain requiring titration of medications to achieve optimal effect and to minimize immediate or severe side effects * Jocelyn Mendoza RN - 05/24/2023 2:17 AM EDT OUTCOME EVALUATION NOTE: OUTCOME SUMMARY: 05/23 PM: Patient VSS on RA. Patient complained of nausea since shift change PRN Reglan given with no relief. MD notified at 0917, new orders were not received until 0015. PO compazine and IV benadrylgiven. Patient crying in bed with no relief. MD notified again, no orders given for over1 hr. IV compazine and benadryl ordered and given. Patient finally able to sleep at 0300. Patient has a 1:1 sitter per psych for SI. Patient refused Masimo throughout the night, educated on the reason and importance of the monitor, patient still refused and only placed for intermittent vs check. PLAN MOVING FORWARD: 1:1 SI sitter Pain control (PRN PO oxycodone and SUBCUT Dilaudid) Nausea control Monitor generalized rash/blisters Monitor result review for skin biopsy (in progress) INDIVIDUALIZED FALL PREVENTION INTERVENTIONS: Patient-specific fall risk factors per assessment: [current deficits]: x1 PIV, generalized weakness Assistance [level of assistance required for transfers and ambulation]: SBA with walker Supervision [direct monitoring required during toileting and ADLs]: Yes 1:1 sitter for SI Surveillance [continuous indirect monitoring]: N/A Masimo refusal. Patient-specific fall prevention interventions for sensory deficits provided, if applicable: [X] N/A CPG GOAL OUTCOME EVALUATION: * Stanton Du RN - 05/23/2023 5:35 PM EDTSummary: Masimo Refusal I have recommended that this patient utilize continuous Masimo monitoring but she refuses to wear it on her finger at this time. I have discussed the risks and benefits of this examination with her. The patient verbalizes understanding. * Grupo Reeves MD - 05/23/2023 5:03 PM EDT Images from the original note were not included. DERMATOLOGY - INPATIENT PROGRESS NOTE Admit Date: 05/22/2023 Hospital Day 1 day Problem List: Active Hospital Problems Diagnosis Rash Resolved Hospital Problems No resolved problems to display. Visit date: 05/23/2023 Dermatology Resident: Grupo Reeves MD Summary: Ender Junior is a 67 y.o. 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 Interval History/Subjective: - HSV and VZV neg - Reports improvement in itchiness with triamcinolone cream - Rash has not spread elsewhere though blisters appear to be enlarging - Superficial skin and blood cultures NGTD - Biopsy path report pending - Has persistent abdominal discomfort. 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 Protein C deficiency D68.59 Right knee pain M25.561 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 L28.0 Spinal stenosis of lumbar region M48.061 Intermittent claudication I73.9 Chronic deep vein thrombosis of left femoral vein I82.512 Tobacco dependence F17.200 PAD (peripheral artery disease) I73.9 Anticoagulated on warfarin Z79.01 Bursitis of right shoulder M75.51 Carpal tunnel syndrome of right wrist G56.01 Chronic pain disorder G89.4 Depressive disorder F32.A Diabetes E11.9 Diabetic peripheral neuropathy E11.42 Gastroesophageal reflux disease K21.9 History of pulmonary embolism Z86.711 Hyperlipidemia E78.5 Medial epicondylitis of elbow, left M77.02 Migraine G43.909 Nocturnal leg cramps G47.62 Non-intractable cyclical vomiting with nausea R11.15 Obesity E66.9 Smoker F17.200 Ulnar neuropathy of left upper extremity G56.22 Leg edema, left R60.0 Rash R21 Meds: Scheduled Meds: dapsone 50 mg Oral BID [START ON 05/24/2023] warfarin (Coumadin) daily order reminder Oral Q24H warfarin 5 mg Oral Once sodium chloride 0.9 % (flush) 5 mL Intravenous BID amitriptyline 20 mg Oral Nightly baclofen 10 mg Oral BID pantoprazole EC 40 mg Oral Daily sodium chloride 0.9 % (flush) 5 mL Intravenous BID triamcinolone Topical (Top) BID hydrOXYzine 50 mg Oral Nightly acyclovir 500 mg Intravenous Q12H Continuous Infusions: PRN Meds:.HYDROmorphone, metoclopramide, sodium chloride 0.9 % (flush), lidocaine, sodium chloride 0.9 % (flush), lidocaine, oxyCODONE Allergies: Allergies Allergen Reactions Azithromycin Shortness Of Breath Adhesive Tape Rash Amoxicillin Nausea Only Promethazine Other (See Comments) Rizatriptan Sertraline Sulfamethoxazole Sulfamethoxazole-Trimethoprim Tramadol Nausea Only Trimethoprim Venlafaxine Wheat Bran Rash Wheat Flour Rash Wheat Germ Oil Rash Wheat Starch Rash Zofran [Ondansetron Hcl] I dont like it Laboratory: Reviewed in the chart. Imaging: Reviewed in the chart. Physical Exam: Last Set of Vital Signs and range of Vitals over past 24 hours: Last value Range last 24 hrs Temperature Temp: 37.5 ??C (99.5 ??F) Temp: [36.3 ??C (97.3 ??F)-37.5 ??C (99.5 ??F)] Heart Rate Heart Rate: 94 Heart Rate: -- Blood Pressure BP: 143/68 BP: (120-144)/(64-84) Respiratory Rate Resp: 19 Resp: [14-20] SpO2 SpO2: 94 % SpO2: [91 %-95 %] Constitutional: Patient was resting in bed in NAD Skin: The following skin areas were examined: face, conjunctiva, nasal mucosa, oral mucosa, neck, trunk, and extremities. Significant findings of the exam are stated below in the Assessment and Plan. Description/Assessment/Plan: #. Autoimmune Blistering Disease (Linear IgA Bullous Dermatosis vs. Flare of Dermatitis Herpetiformis vs. Paraneoplastic Pemphigus) vs. Bullous Erythema Multiforme vs. Less Likely Systemic Contact Dermatitis or AGEP - annular and polycyclic edematous pink-violaceous plaques on the bilateral forearms and thighs; tense vesicles on an erythematous base on the face (including extension onto nasal mucosa), ears, and bilateral upper extremities; faint purple macules on the bilateral palms; no evidence of conjunctival, oral, or vulvar mucosal erosions/crusting. - Rapidly progressive onset and spread of urticarial lesions with new blisters beginning 05/21/23, several days following CT C/A/P with IV and PO contrast - Workup: HSV1/2 and VZV PCRs (negative), superficial skin culture and BCx (NGTD at 24h) - Current treatment: triamcinolone cream (bid to trunk and extremities) - Dermatologic history significant for recently diagnosed dermatomyositis (with TIF1g AB) and dermatitis herpetiformis (on home dapsone 50 mg daily) - Lower suspicion for infectious etiology (e.g., disseminated zoster or bullous impetigo) given lack of fever, systemic symptoms, and negative viral and bacterial swabs - Morphology and mucosal involvement can be suggestive of linear IgA bullous dermatosis (LABD). Medications are common triggers but patient does not report any new medications. There are no reports of contrast-induced LABD - Blisters can be secondary to a flare of dermatitis herpetiformis, especially given concomitant GIsymptoms. Oral contrast (iohexol) does not appear to have gluten as an ingredient which makes this less likely a trigger. - Bullous erythema multiforme is possible given facial, mucosal, and distal extremity involvement, though there are no true targetoid lesions on examination - Given raised nature of rash, lack of desquamation, and lack of significant serous/hemorrhagic crusting of mucosal surfaces, severe cutaneous drug reaction such as SJS/TEN unlikely at this time. - AGEP less likely given lack of pustules at this moment - Awaiting reads of punch biopsies for H&E x 2 and DIF x 1 Recommendations: - Stop IV acyclovir and isolation orders - Continue ice packs and Rx: triamcinolone 0.01% cream: Apply twice daily to affected pink pruriticand/or blistered areas on the trunk and extremities - Start Rx: hydrocortisone 1-2.5% cream: Apply twice daily to affected pink pruritic and/or blistered areas on the trunk and extremities - Continue Rx: hydroxyzine 50 mg PO qhs for symptomatic relief of skin discomfort - Consider starting Rx: hydroxyzine 25 mg PO daily PRN in the morning or afternoon for daytime itch - Recommend expedited workup for occult pulmonary neoplasm given recent findings of pulmonary nodules noted on recent CT scan given patient's recent diagnosis of dermatomyositis with TIF-1 gamma antibodies which can be suggestive of an underlying visceral malignancy - Recommend GI consult for persistent abdominal discomfort (given history of celiac disease and acute worsening of symptoms in association with rash eruption) The following photos were obtained with patient consent: Follow-up: Dermatology will continue to follow. Please do not hesitate to contact us if you have any questionsor concerns. Impression and Recommendations discussed with primary team on 05/23/2023. Grupo Reeves MD Resident in Dermatology [facility] Pager: [phone] Patient seen and evaluated with staff icu registered nurse: Lea Beltran MD Section of Dermatology [facility] Associated attestation - Lea Beltran MD - 05/24/2023 5:55 PM EDT I directly supervised Dr. Reeves during this inpatient consult visit. Dr. Reeves presented the history and physical exam to me. I, then, saw and examined this patient with Dr. Reeves. We reviewed the history and pertinent details and I confirmed the physical findings. I agree with the details of the findings and plan of care as documented in Dr. Reeves's note. LEA BELTRAN MD Staff Physician * Judit Kingsley RN - 05/23/2023 2:27 PM EDT Patient being transferred to [facility], report called to LUIS Eid. Patient received pain medication prior to transfer. All belongings sent with patient. Medications sent with patient in sealed bag. Judit Kingsley RN * Sergio Pemberton DO - 05/23/2023 6:12 AM EDT MEDICINE PAGER [phone] - [facility] Daily Progress Note Admit Date: 05/22/2023 Encounter Date: May 23, 2023 Anticipated Discharge Date: Hospital Day: 1 Ender Junior is a 67 y.o. female w/ PMH of celiac disease, protein C deficiency, PAD, DVTs/PEon warfarin, depression and diabetes, admitted to [facility] on 05/22/2023, now on Hospital Day #0, for 4 day hx of painful pruritic blistering rash over her arms, legs and trunk that has now spread to her mucosa. 24 Hour Events/Subjective: Yesterday - Dermatology Consulted - empiric treatment for Disseminated Zoster - started IV acyclovir - HSV1/2 and VZV PCR collected Overnight: Started IV Acyclovir - placed on contact and airborne precautions Started 0.1% triamcinolone cream and 50mg hydroxyzine nightly. 2039 - Psych recs, does NOT have capacity to leave AMA. Needs sitter overnight, psych will f/u tomorrow 2299 - intermittent 5/10 crampy abdominal pain, no N/V. Last BM yesterday. Passing gas. Has been afebrile. Diffuse tenderness on exam - ordered abd Xray This AM: - continues to have pain around rash but controlled with current pain med - rash looks the same per patient - family at bedside - inquires about her Dapsone - sitter at bedside due to SI - still seems cee and said either I get better if not when asked if still have SI. Objective: Last value Range last 24 hrs Temp: 37 ??C (98.6 ??F) Temp: [36.6 ??C (97.9 ??F)-37 ??C (98.6 ??F)] Heart Rate: 94 Heart Rate from SpO2: 86 bpm Heart Rate: [83-105] BP: 126/64 BP: (120-193)/(57-90) Resp: 14 Resp: [13-20] SpO2: 91 % SpO2: [91 %-98 %] Height: 157.5 cm (5' 2) Weight: 61.5 kg (135 lb 9.6 oz) BMI (Calculated): 24.8 BMI Classification: Normal Weight Intake/Output Summary (Last 24 hours) at 05/23/2023 0613 Last data filed at 05/22/2023 4320 Gross per 24 hour Intake 250 ml Output -- Net 250 ml Patient Vitals for the past 72 hrs: Weight 05/22/232052 61.5 kg (135 lb 9.6 oz) EXAM: GENERAL: Awake, alert, no acute distress HEENT: Anicteric, no conjunctival erosion/injection. no clear facial rash, no overt heliotropic rash julia-orbitally, several erythematous macules over central and right forehead. Solitary hard raisedlesion of the right interior cheek that is not blistering. Several mucosal blisters encircling the inferior border of the nares bilaterally CV: RRR, no murmurs/rubs/gallops, 2+ radial/DP pulses PULM: Normal respiratory effort, CTA with good air entry bilaterally, no rales/rhonchi/wheezes ABDOMEN: Soft, non-tender, non-distended, no masses, no guarding EXTREMITIES: No lower extremity edema, no clubbing or cyanosis. Left lower leg with stiff skin texture compared to right, non-tender PSYCH/NEURO: cee, sad affect SKIN: Warm, dry. Erythematous non-blanching macular rash in large circles coalescing into plaques, over the trunk, julia-umbilical abdomen, back, and anterior thighs, with similar but less-erythematous macular rash on posterior thighs, sparing the palms and soles. Clinical images in media file 9.9 131 100 25 3.2 6.5 8.8 4.5 H/H 188 5.1 21 1.11 -- .3 0.92 31.4 16 18 2.5 114 61.9N (.4B) / 28.5L / 7.7M / 1.1E / .4B No results found for this visit on 05/22/23 (from the past 24 hour(s)). CONSULTANTS: IP CONSULT TO DERMATOLOGY IP ADMISSION REQUEST IP CONSULT TO DERMATOLOGY IP CONSULT TO PSYCHIATRY Assessment: Ender Junior is a 67 y.o. 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 Patient and her family feel that this rash is a reaction to her PO and IV contrast that she had [address] Abdomen Pelvis; at the same time, the scan was performed in service of dermatomyositis work-up within the past 3 months. On exam, patient is stable with patent airway despite reports ofprevious vomiting and current hoarseness, so if this is an allergic reaction she does not appear tessa anaphylactic. On lab work, she has an JASON and also elevated INR to 5.5, which is curious becauseit does not sound as though patient has been altering her historic blood thinner dosages. She is hyponatremic to 128. LFTs are normal, which is reassuring for DRESS concerns, which were lower given that patient does not have classically provocative medications. She had a CT Abdomen Pelvis was largely normal but did include findings of a small pulmonary noduleand a lobulated thyroid growth; we can consider reaching out to her primary care provider for mammogram or similar routine screenings, given her risk for underlying malignancy. Derm consulted and recommended to perform wound biopsy and culture, and given possibilitiy of disseminated zoster - patient was empirically started on IV Acyclovir. For symptomatic relief, triamcinolone cream, hydroxyzine, and hydrocortisone cream were also recommended. Plan: # Painful pruritic rash # Possible erythema multiforme # History of dermatomyositis, pending # Hx of Dermatitis Herpetiformis # Disseminated Zoster - low threshold for systemic steroids - Derm consulted - disseminated zoster v. bullous erythema multiforme vs. dermatitis herpetiformis vs. paraneoplastic pemphigus vs AGEP vs bullous impetigo vs systemic contact dermatitis - s/p wound biopsy - superficial wound culture collected - Started Acyclovir 05/22 - 0.1% triamcinolone cream - hydrocortisone cream - 50mg hydroxyzine nightly - CT Abd pelvis - largely normal but small pulmonary nodule and a lobulated thyroid growth - consider work up for malignancy - pain regimen: oxycodone 5mg PO q4h #History of protein C deficiency #Supra-therapeutic INR - hold home eliquis and warfarin - monitor INR (INR 5.5 on 05/22) #Hyponatremia - urine sodium labs to evaluate etiology #Depression #Anxiety - Continue Amitriptyline 20 mg nightly #Celiac Disease - continue Home regimen of Dapsone 50 mg BID Diet: Gluten Free diet Last BM documented: 05/21/23 DVT Prophylaxis: None Daily Checklist: Last Family Communication: Discharge Location: AM-PAC Basic Mobility Raw Score: 18 PT: OT: Code status Attempt Cardiopulmonary Resuscitation - Inpatient PCP Renzo Castano, [employer] [phone] Active Hospital Problems Diagnosis Rash Resolved Hospital Problems No resolved problems to display. Sergio Pemberton DO IM Resident PGY-1 Medicine Team: Cinthya Diane * Sherrie Connor RN - 05/23/2023 2:15 AM EDT OUTCOME EVALUATION NOTE: OUTCOME SUMMARY: Pt received from X- Ray in stable condition. Noted to be increasingly anxious and irritable, stating that she just wants to be left alone to rest. Pain well controlled on PRN pain meds. Per lab, PT/APTT were cancelled, and need to be reordered and redrawn. Request sent to provider to reorder cancelled labs. Pt denies any further needs at this time. Observed resting in bed quietly with eyes closed. Call light is within easy reach. Bed alarm set, and 1:1 sitter is at bedside. PLAN MOVING FORWARD: 1:1 safety director Pain control Monitor generalized rash Monitor INR, Sodium results Mobilize D/c planning Monitor result for shingles (in process). INDIVIDUALIZED FALL PREVENTION: Patient is currently a high risk to Fall. Patient educated on bed/chair alarm, demonstrates proper use of call antonio and verbalizes understanding of fall preventions implemented. Patient-specific fall risk factors per assessment: [current deficits]: Pain, Medications, Hospital Environment. Assistance [level of assistance required for transfers and ambulation]: Up with assist of 1 via walker. Supervision [direct monitoring required during toileting and ADLs]: Eyes on, hands on, per unit protocol when OOB/with ADL's Surveillance [continuous indirect monitoring]: Patricia Garciaful Rounding, Nurse Knowledge Exchange * Lanette Stockton RN - 05/22/2023 11:23 PM EDT 2000- Pt complaining of chest pain when brought in just baclofen for pain. Pt pointed to epigastricregion when asked where the pain was and denied radiation. Stated the pain has been on and off for a few hours but when asked 10 minutes prior about chest pain pt denied any. When casualty underwriter attempted totake blood pressure. Pt refused stating never mind its fine. notified. No new orders. 2319- Report called to L3WD RN. Pt being transferred due to need for private negative pressure room. Accepting RN without questions at this time. Assessment as filed. 0036- Picked up by transport to go to XR then room 302. documented in this encounter H&P Notes * Gerry Yeung - 05/23/2023 12:46 PM EDTSummary: progress note Images from the original note were not included. DERMATOLOGY - INPATIENT PROGRESS NOTE Admit Date: 05/22/2023 Hospital Day 1 day Problem List: Active Hospital Problems Diagnosis Rash Resolved Hospital Problems No resolved problems to display. Visit date: 05/23/2023 Summary: Ender Junior is a 67 y.o. 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 Protein C deficiency D68.59 Right knee pain M25.561 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 L28.0 Spinal stenosis of lumbar region M48.061 Intermittent claudication I73.9 Chronic deep vein thrombosis of left femoral vein I82.512 Tobacco dependence F17.200 PAD (peripheral artery disease) I73.9 Anticoagulated on warfarin Z79.01 Bursitis of right shoulder M75.51 Carpal tunnel syndrome of right wrist G56.01 Chronic pain disorder G89.4 Depressive disorder F32.A Diabetes E11.9 Diabetic peripheral neuropathy E11.42 Gastroesophageal reflux disease K21.9 History of pulmonary embolism Z86.711 Hyperlipidemia E78.5 Medial epicondylitis of elbow, left M77.02 Migraine G43.909 Nocturnal leg cramps G47.62 Non-intractable cyclical vomiting with nausea R11.15 Obesity E66.9 Smoker F17.200 Ulnar neuropathy of left upper extremity G56.22 Leg edema, left R60.0 Rash R21 Meds: Scheduled Meds: dapsone 50 mg Oral BID [START ON 05/24/2023] warfarin (Coumadin) daily order reminder Oral Q24H sodium chloride 0.9 % (flush) 5 mL Intravenous BID amitriptyline 20 mg Oral Nightly baclofen 10 mg Oral BID pantoprazole EC 40 mg Oral Daily sodium chloride 0.9 % (flush) 5 mL Intravenous BID triamcinolone Topical (Top) BID hydrOXYzine 50 mg Oral Nightly acyclovir 500 mg Intravenous Q12H Continuous Infusions: PRN Meds:.HYDROmorphone, sodium chloride 0.9 % (flush), lidocaine, sodium chloride 0.9 % (flush), lidocaine, oxyCODONE Allergies: Allergies Allergen Reactions Azithromycin Shortness Of Breath Adhesive Tape Rash Amoxicillin Nausea Only Promethazine Other (See Comments) Rizatriptan Sertraline Sulfamethoxazole Sulfamethoxazole-Trimethoprim Tramadol Nausea Only Trimethoprim Venlafaxine Wheat Bran Rash Wheat Flour Rash Wheat Germ Oil Rash Wheat Starch Rash Zofran [Ondansetron Hcl] I dont like it Laboratory: Reviewed in the chart. Imaging: Reviewed in the chart. Physical Exam: Last Set of Vital Signs and range of Vitals over past 24 hours: Last value Range last 24 hrs Temperature Temp: 36.5 ??C (97.7 ??F) Temp: [36.5 ??C (97.7 ??F)-37 ??C (98.6 ??F)] Heart Rate Heart Rate: 94 Heart Rate: [93-105] Blood Pressure BP: 128/72 BP: (120-144)/(57-77) Respiratory Rate Resp: 20 Resp: [14-20] SpO2 SpO2: 95 % SpO2: [91 %-97 %] Constitutional: Patient was NAD, laying in bed. Skin: The following skin areas were examined scalp, face, conjunctiva, nasal mucosa, oral mucosa, trunk, and extremities, vulva, and buttocks. Significant findings of the exam are stated below in theAssessment and Plan. Description/Assessment/Plan: #. Linear IgA bullous dermatosis vs. disseminated zoster v. bullous erythema multiforme vs. dermatitis herpetiformis vs. paraneoplastic pemphigus vs AGEP vs bullous impetigo vs systemic contact dermatitis - Polycyclic, edematous pink- light brown plaques on the bilateral forearms, thighs, back, and abdomen; tense vesicles/bullae on an erythematous base on the face (including nares), ears, and bilateral upper extremities; faint purple macules on the bilateral palms; no evidence of conjunctival, oral, or vulvar mucosal erosions/crusting. -Drug induced linear IgA possible considering history of DH and may mimic EM, however, contrast induced IgA has not been reported in the literature. Major medications implicated include NSAIDs (diclofenac d/c 05/22, reports taking at home). No recent use of vancomycin, captopril, lasix, and sulfas and pcn. Confirmation pending pathology/IF. Dapsone is considered first line treatment, continue withpatient's home dosing. - Presence of tense bullae of erythematous base could also be suggestive of other primary dermatologic diseases (e.g., acute exacerbation of dermatitis herpetiformis, bullous impetigo, linear IgA bullous dermatosis, paraneoplastic pemphigus from possible occult visceral malignancy, systemic allergic contact dermatitis) - Bullous erythema multiforme is possible given facial, mucosal, and distal extremity involvement, although no true targetoid lesions on examination - Given negative VZV/ HSV, d/c acyclovir and contact precautions. - NGTD on wound cultures, no signs of infectious etiology, no fever/ leukocytosis or systemic symptoms. - Given raised nature of rash, lack of desquamation, and lack of significant serous/hemorrhagic crusting of mucosal surfaces, severe cutaneous drug reaction such as SJS/TEN unlikely at this time. - AGEP less likely given lack of pustules at this moment - Recommend expedited workup for occult pulmonary neoplasm given recent findings of pulmonary nodules noted on recent CT scan given patient's recent diagnosis of dermatomyositis with TIF-1 gamma antibodies which can be suggestive of an underlying visceral malignancy. - Consider GI consultation given abdominal symptoms and history of celiac disease. Plan: - continue ice packs and Rx: triamcinolone 0.01% cream: Apply twice daily to affected areas on the trunk and extremities for symptomatic relief of skin discomfort -start RX: Hydrocortisone 2.5% ointment to the face for 7-10 days and take a week off and repeat asneeded Discussed side effects and risks with chronic use including: glaucoma and cataracts with facial useand atrophy and ulceration on other areas of the body with prolonged daily use - continue Rx: hydroxyzine 50 mg PO qhs for symptomatic relief of skin discomfort, start [id number] prn daily - biopsies and DIF pending The following photos were obtained with patient consent: Media Information Document Information Photographic Image: Photographs - Images 05/23/2023 16:13 Attached To: Hospital Encounter on 05/22/23 Source Information Grupo Reeves MD [facility] Hem Onc L1wd Follow-up: Dermatology will continue to follow. Please do not hesitate to contact us if you have any questionsor concerns. Impression and Recommendations discussed with Dr. Beltran team on 05/23/2023. Gerry Yeung, [place] Department of Dermatology [facility] * Rachel Coppola MD - 05/22/2023 10:48 AM EDT Inpatient Hospital Medicine Admission History and Physical 05/22/2023 Patient Name: ENDER JUNIOR Date of : 1955 Age: 67 y.o. Hospital Admit Date: 05/22/2023 Hospital Day: 0 Inpatient Attending: Gucci Miller MD PCP: Renzo Castano, XIMENA ([phone]) Chief Complaint Patient presents with Rash ID: Ender Junior is a 67 y.o. 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 SUBJECTIVE History of Present Illness: Ender Junior is a 67 y.o. 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 Patient and her family report that she first developed her current painful, arm- , leg- and mouth-blistering rash 4 days ago, 1 day after drinking contrast and getting IV contrast for a scan to evaluate for gastric cancer due to workup of previous lab results, per her description. Patient endorses worsening pain and pruritus to the rash. On the day she developed the rash, she was nauseous and vomited multiple times. Last night she noticed blisters in her mouth and nose. She endorses blisters in her genital area that she sees when she goes to the bathroom. In the past two hours she has grown hoarse, which is new for her. Patient endorses feeling bloated, which has been present over a week. She reports pain with urination. Her urine has been more foamy recently. Several weeks ago she switched to pregabalin from gabapentin; patient has been switching from warfarin to eliquis in the past month, no unusual use or extra doses of blood thinners. Before visiting this hospital, patient went to the ED in [place], and in [facility] in the past 2 days. Patient received steroids at previous hospitals and was discharged with presumed diagnosisof erythema multiforme. She was told to present to this hospital ED by her primary care doctor after developing mucosal blisters. Patient has a history of celiac, so she avoids all wheat product, no diet changes recently. Per chart review, patient tested positive for [id number] antibody on myositis panel 2 months ago, during work-up of a separate full-body rash. Review of Systems (Positives in Bold): General: chills, fatigue, fever or night sweats Eye: blurry vision, double vision, loss of vision or photophobia HENT: headaches, sore throat or vertigo Heme/Lymph: Bleeding/bruising, blood clots, jaundice, pallor or swollen lymph nodes Resp: cough, hemoptysis, orthopnea, shortness of breath or wheezing Cardio: chest pain, dyspnea on exertion, edema, loss of consciousness, palpitations, paroxysmal nocturnal dyspnea or shortness of breath Gastro: abdominal pain, blood in stools, constipation, diarrhea, heartburn, hematemesis, melena or nausea/vomiting : dysuria, hematuria or urinary frequency/urgency MSK: joint pain, joint stiffness, joint swelling, muscle pain or muscular weakness Neuro: dizziness, gait disturbance, impaired coordination/balance, memory loss, numbness/tingling, seizures, speech problems, tremors or visual changes Derm: lumps or rash As recorded in the EMR: Past Medical History: Past Medical History: Diagnosis Date urner syndrome Patient Active Problem List Diagnosis Code Chronic venous insufficiency I87.2 Celiac disease K90.0 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 Protein C deficiency D68.59 Right knee pain M25.561 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 L28.0 Spinal stenosis of lumbar region M48.061 Intermittent claudication I73.9 Chronic deep vein thrombosis of left femoral vein I82.512 Tobacco dependence F17.200 PAD (peripheral artery disease) I73.9 Anticoagulated on warfarin Z79.01 Bursitis of right shoulder M75.51 Carpal tunnel syndrome of right wrist G56.01 Chronic pain disorder G89.4 Depressive disorder F32.A Diabetes E11.9 Diabetic peripheral neuropathy E11.42 Gastroesophageal reflux disease K21.9 History of pulmonary embolism Z86.711 Hyperlipidemia E78.5 Medial epicondylitis of elbow, left M77.02 Migraine G43.909 Nocturnal leg cramps G47.62 Non-intractable cyclical vomiting with nausea R11.15 Obesity E66.9 Smoker F17.200 Ulnar neuropathy of left upper extremity G56.22 Leg edema, left R60.0 Rash R21 Past Surgical History: Past Surgical History: Procedure Laterality Date CHOLECYSTECTOMY, LAPAROSCOPIC 03/18/1992 VASCULAR SURGERY Left 10/01/2009 Balloon angioplasty and stenting of left common iliac vein stenosis VASCULAR SURGERY Left 01/30/2014 Left iliac vein 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 Prior To Admission Medications: (Not in a hospital admission) Allergies: Allergies Allergen Reactions Azithromycin Shortness Of Breath Adhesive Tape Rash Amoxicillin Nausea Only Promethazine Other (See Comments) Rizatriptan Sertraline Sulfamethoxazole Sulfamethoxazole-Trimethoprim Tramadol Nausea Only Trimethoprim Venlafaxine Wheat Bran Rash Wheat Flour Rash Wheat Germ Oil Rash Wheat Starch Rash Zofran [Ondansetron Hcl] I dont like it Family History: Family History Problem Relation Age of Onset Cancer Mother Cancer Maternal Aunt Diabetes Other Social History: Social History Socioeconomic History Marital status: Spouse name: Not on file Number of children: Not on file Years of education: Not on file Highest education level: Not on file 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7 ??C (98.1 ??F)] Heart Rate Heart Rate: 93 Heart Rate: [81-100] Blood Pressure BP: 141/57 BP: (122-193)/(57-90) Art Line BP BP (Arterial Line): -- MAP (NBP): [80 mmHg-120 mmHg] Respiratory Rate Resp: 17 Resp: [12-20] SpO2 SpO2: 98 % SpO2: [95 %-98 %] Oxygen Delivery Oxygen Therapy O2 Device: None (Room air) No intake or output data in the 24 hours ending 05/22/23 1357 No intake/output data recorded. There is no height or weight on file to calculate BMI. No data found. Admit wt: Physical Exam: GENERAL: Awake, alert, no acute distress HEENT: Anicteric, no conjunctival injection. Mildly puffy appearance but no clear facial rash, no overt heliotropic rash julia-orbitally, several erythematous macules over central and right forehead. Solitary hard raised lesion of the right interior cheek that is not blistering. Several mucosal blist ers encircling the inferior border of the nares bilaterally CV: RRR, no murmurs/rubs/gallops, 2+ radial/DP pulses PULM: Normal respiratory effort, CTA with good air entry bilaterally, no rales/rhonchi/wheezes ABDOMEN: Soft, non-tender, non-distended, no masses, no guarding EXTREMITIES: No lower extremity edema, no clubbing or cyanosis. Left lower leg with stiff skin texture compared to right, non-tender PSYCH/NEURO: Appropriate affect and cognition SKIN: Warm, dry. Erythematous non-blanching macular rash in large circles coalescing into plaques, over the trunk julia-umbilical abdomen and back, but best seen on the superior-anterior thighs, with similar but less-erythematous macular rash on posterior thighs, sparing the palms and soles. Clinical images in media file LABS: CBC: Recent Labs 05/22/23 0553 03/12/23 1156 WBC 9.0 5.6 HGB 10.6* 10.3* HCT 32.5* 33.0* PLATELET 233 173 NEUTROABS 6.48* 3.49 Chemistry: Recent Labs 05/22/23 0647 05/22/23 0553 05/17/23 1251 NA 128* 126* 136 K 5.1* Not Perf 5.2* CL 95* 94* 98 CO2 22 21* 25 BUN 32* 33* 22* CREATININE 1.33* 1.32* 1.26* GLUCOSE 95 99 132 ANIONGAP 11 11 13 Recent Labs 05/22/23 0647 05/22/23 0553 05/17/23 1251 CALCIUM 9.2 9.5 9.2 MAGNESIUM -- 0.98 -- PHOS -- 3.0 -- LFT's: Recent Labs 05/22/23 0647 05/22/23 0553 05/17/23 1251 BILITOT 0.3 0.3 0.3 ALBUMIN 3.9 3.9 3.6 ALKPHOS 127* 134* 142* ALT 20 Not Perf 24 AST 17 Not Perf 15 Coags: Recent Labs 05/22/23 0600 PT 61.9* INR 5.5* PTT 42* Recent Labs 05/22/23 0600 INR 5.5* Cardiac enzymes: Recent Labs 03/12/23 1156 CK 65 Endocrine: Recent Labs 05/22/23 0553 TSH 2.54 Recent Labs 03/12/23 1156 HA1C 4.6 Lipids: Heme: No results for input(s): LDH, HAPTOGLOBIN, URICACID in the last 168 hours. ABG (Arterial Blood Gas): No results found for: PHART, PO2ART, YGP4IQR, DKD0EVN VBG (Venous Blood Gas): Recent Labs 05/22/23 0610 PHVEN 7.34 [id number] 46 PO2VEN 34 QTK2WKT 24.3 BEVEN -1.5 EKG: Lab Results Component Value Date/Time DIAGLINE 05/22/2023 0624 Normal sinus rhythm Septal infarct , age undetermined Abnormal ECG No previous ECGs available I personally reviewed the tracing and edited the fellows interpretation Confirmed by fellow Rudy Lund ([id number]) on 05/22/2023 9:13:23 AM Confirmed by Dov Rich ([id number]) on 05/22/2023 1:36:35 PM QTCCALC 433 05/22/2023 0624 Vascular: No results found for: VBTEXTRPT Microbiology: Date Type Result No results found for: URINECULTURE No results found for: GRAMSTAIN, BFCX, LOWERRESPCX, TISSUECX No results found for: BLOODCX Imaging/Diagnostics: No results found for this visit on 05/22/23 (from the past 48 hour(s)). CT Chest Abdomen Pelvis w Contrast (Generic) 05/17/2023 Narrative EXAMINATION: CT CHEST ABDOMEN PELVIS W CONTRAST [...] the thorax is provided for comparison. FINDINGS: Dividend Deposit Voucher Clerk Images: Noncontributory. CT OF THE CHEST: Pulmonary parenchyma: There is a 5 mm pulmonary nodule in the left upper lobe. There are curvilinear bands of scarring in the ventral aspects of the bilateral upper lobes. There are multifocal sub-5 mm semisolid nodules in the right upper lobe and to a lesser extent left upper lobe. There are curvilinear bands of atelectasis at the bilateral lung bases. There is mild centrilobular emphysema with an apical predominance. Airways: Central airways are patent. There is no endobronchial or endotracheal lesion. There are layering secretions within the trachea. Pleura: There is no pleural effusion or pneumothorax. Lymph nodes:There are no pathologically enlarged lymph nodes. Heart, pericardium, and great vessels: Cardiac size is within normal limits. There is physiologic pericardial fluid. There is mild to moderate multifocal atherosclerotic calcification of the coronary arteries. The aorta is normal in course and caliber. There is mild atherosclerotic calcification of the aortic arch extending into the proximal great vessels. There is a normal three-vessel aortic arch configuration. There is less than 50% stenosis within the proximal left subclavian artery due to noncalcified atheroma. The pulmonary arteries are normal in course and [...] related to prior ischemia or traumatic injury. The remainder of the spleen enhances normally and homogeneously. Adrenals: Normal. Kidneys: Normal. Urinary Bladder: The urinary bladder is distended and is otherwise unremarkable. Vasculature: The aorta is normal in course. There is moderate mixed noncalcified and calcified atheroma throughout the abdominal aorta. There is luminal narrowing of the infrarenal abdominal aorta, with a minimal luminal diameter of 11 x 8 mm. The inferior vena cava is normal in course and caliber. There is a left common iliac venous stent present which appears patent. The superior mesenteric, splenic, and portal veins are patent. The hepatic veins are patent. The renal veins are patent. Lymph Nodes: There are no pathologically enlarged lymph nodes. Bowel: Limited evaluation the distal esophagus is unremarkable. The stomach is under distended, limiting evaluation. There is unchanged thickening along the greater curvature of the stomach, stable dating back to 2009. The duodenum is normal in course and caliber. The remainder of the small bowel is within normal limits. The ileocecal valve is within normal limits. There is a moderate volume of stool throughout the course of the large bowel. The transverse and sigmoid colons are moderately redundant. Peritoneum and mesentery: No ascites, free air, or loculated fluid collection. No mesenteric inflammation. Abdominal wall: Normal. Reproductive organs: The uterus is anteverted. Limited evaluation of the adnexa is unremarkable. Osseous structures: There is generalized osseous demineralization, which limits interpretation. There are degenerative changes of the visualized spine with endplate sclerosis and osteophyte formation. There is a compression fracture deformity of the T8 vertebral body at the expense of the superior endplate with approximately 40% remaining vertebral body height, this appears chronic. There is disc desiccation with loss of intervertebral disc height and vacuum disc phenomenon. There are mild arthritic changes of the bilateral hip joints and glenohumeral joints. Impression 1. Apical predominant semisolid bilateral pulmonary nodules, most consistent with an infectious or inflammatory etiology. Given high risk of malignancy, short-term CT of the chest, possibly in 3 months, can be obtained to ensure stability or resolution. 2. Mild centrilobular emphysema. 3. Hepatic steatosis. 4. Moderate atherosclerotic calcification particularly of the infrarenal abdominal aorta with a minimal luminal diameter of 8 x 11 mm. 5. 15 mm lobulated right thyroid nodule. Per ACR white paper guidelines, follow-up nonemergent ultrasound the thyroid is recommended. 6. Status post left common iliac venous stenting, patent. Thank you for letting us participate in the care of this patient. If you are a health care provider and have any questions regarding this report, please contact the number below. For patients who have questions please contact the health care director that requested your imaging first. Electronically signed by: Grupo Soto DO, [facility] ([phone]), at 05/18/2023 9:24 AM Medications: Scheduled: sodium chloride 0.9 % (flush) 5 mL Intravenous BID amitriptyline 20 mg Oral Nightly baclofen 10 mg Oral BID pantoprazole EC 40 mg Oral Daily sodium chloride 0.9 % (flush) 5 mL Intravenous BID Continuous: sodium chloride 0.9% PRN: sodium chloride 0.9 % (flush), lidocaine, sodium chloride 0.9 % (flush), lidocaine ASSESSMENT and PLAN: Ender Junior is a 67 y.o. 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 Patient and her family feel that this rash is a reaction to her PO and IV contrast that she had [address] Abdomen Pelvis; at the same time, the scan was performed in service of dermatomyositis work-up within the past 3 months. On exam, patient is stable with patent airway despite reports ofprevious vomiting and current hoarseness, so if this is an allergic reaction she does not appear tessa anaphylactic. On lab work, she has an JASON and also elevated INR to 5.5, which is curious becauseit does not sound as though patient has been altering her historic blood thinner dosages. She is hyponatremic to 128. Her blood glucose is relatively normal at 95 given that she is diabetic with recent doses of solumedrol and prednisone. LFTs are normal, which is reassuring for DRESS concerns, which were lower given that patient does not have classically provocative medications. We will treat her pain and pruritus symptomatically at first, with low threshold to add steroids. We appreciate the insight of Dermatology about treatment and workup of her rash. Her CT Abdomen Pelvis was largely normal but did include findings of a small pulmonary nodule and a lobulated thyroid growth; we can consider reaching out to her primary care provider for mammogram or similar routine screenings, given her risk for underlying malignancy. # painful pruritic rash # possible erythema multiforme # history of dermatomyositis, pending - Consult Derm - low threshold for systemic steroids - consider continuing clobetasol cream topically, per Derm recs - pain regimen: oxycodone 5mg PO q4h # history of protein C deficiency # supra-therapeutic INR - hold home eliquis and warfarin - monitor INR # hyponatremia - urine sodium labs to evaluate etiology #Housekeeping: DVT PPx: None GI PPx: Diet: Gluten Free diet Lines: Peripheral IV Line - Single Lumen 05/17/23 1534 basilic vein (medial side of arm), left 22 gauge (Active) Number of days: 4 Peripheral IV Line - Single Lumen 05/22/23 0551 median cubital vein (antecubital fossa), right 20 gauge (Active) Number of days: 0 D/c planning: Home, possible services Code status: Attempt Cardiopulmonary Resuscitation - Inpatient Rachel Coppola MD [facility] Psychiatry PGY-1 Medicine Team: Cinthya, Pager #[phone] Date: 05/22/2023 Associated attestation - Gucci Miller MD - 05/22/2023 8:57 PM EDT I have seen the patient and reviewed the resident's above history and physical exam. I agree with the details as written. The assessment and plan were formulated in discussion with me and I agree with them as documented. Major issues addressed/ Plan: Painful disseminated rash concerning for Zoster. Starting IV acyclovir as per Dermatology. Send urine lytes and osm to work-up her hyponatremia. Goal of correcting to 135. Gucci Miller MD IPI Certification I certify that I am a D-H credentialed attending provider with admitting privileges and that the patient meets or has met medical necessity to require an inpatient IPI level of care meeting a minimumof two midnights or is on the CMS inpatient only procedure list (status C) due to: concern for disseminated zoster requiring IV acyclovir documented in this encounter ED Notes * Maty Pereira RN - 05/22/2023 3:16 PM EDT Nursing report to LUIS Chakraborty * Maty Pereira RN - 05/22/2023 2:23 PM EDT Pt self removed BP monitoring. Advised pt of needs for monitoring. * Maty Pereira RN - 05/22/2023 12:35 PM EDT Icepacks given to pt to apply to painful rash areas. * Kellee Guzman - 05/22/2023 10:13 AM EDT Placed Precaution sign on patients door at which time Pt. Inquired what the sign was for, This casualty underwriter explained Why and pt. Stated she was going to get up and rip it off the Door and yelled at This tech to leave the room. I inquired why Pt. Was so upset and treating staff this way in which pt. Stopped Responding. This casualty underwriter exited room and made RN aware of pt's behavior. * Scout Jiménez MD - 05/22/2023 9:54 AM EDT Emergency Department Sign-Out Note Time of transfer: 607 Care transferred from: Lisa Chahal MD Condition at the time of transfer: Stable The patient was signed out to me by preceding ED team. Please see their notes for full details. I assumed the patient's care, reviewed the medical record, and discussed the patient's ED course with the previous treatment team. Pertinent labs and studies have been reviewed. Brief HPI Briefly, the patient is a 67-year-old female with history of multiple rashes, celiac disease, protein C deficiency, peripheral artery disease, previous DVTs and PE on warfarin, depression, and diabetes presenting with a rash that is spread across her whole body which is painful. She was seen at outside hospital for similar last night and was discharged with a diagnosis of erythema multiforme. Herrash spread to mucous membranes and she presented to our hospital. She recently had IV contrast dyeprior to the rash starting. She was started on Lyrica approximately 4 weeks prior. Initial concern for PATRICIA/SJS. ED Course (since sign-out to me) Temp: [36.6 ??C (97.9 ??F)-36.7 ??C (98.1 ??F)] Heart Rate: [81-99] Resp: [12-17] BP: (168-193)/(85-90) SpO2: [95 %-98 %] Heart Rate from SpO2: [85 bpm] ED Course as of 05/22/23 0954 SunMay 22, 2023 0608 NR-MG: TEN concerns, groin/arms starting, now everywhere. Rash on Sunday. Worsening yesterday evening. [place]. Mucosal involvement. Dysuria. 0627 Pt reporting pain still, morphine ordered 0628 EKG 12 Lead NSR, Narrow QRS, Normal DC and QT intervals. No ischemic changes. 0633 Creatinine(!): 1.32 Near baseline 5 days ago, above baseline before that. 0634 Sodium(!): 126 hyponatremia 0634 INR(!!): 5.5 Elevated, on warfarin 0636 K, AST/ALT hemolyzed. Repeating CMP. 0700 TSH: 2.54 0806 ALT: 20 0806 AST: 17 0806 Potassium(!): 5.1 0819 Patient becoming aggressive towards staff. Frustrated that nothing has been done. Gabapentinordered for pain. 0908 Derm re-paged [phone] Derm says nothing emergently to do. Will see patient later today. 0951 admit placed Assessment/Plan 67-year-old female with a rash of unknown cause. Concern for TN versus SJS based on mucosal findings. Treated with multiple doses of opiate pain control and gabapentin without much relief. INR is super therapeutic, patient has a small JASON and hyponatremia. Patient will be admitted for this with thefollowing by Derm. They were consulted and they think this is erythema multiforme. They will see her in the hospital. Disposition: Admitted to hospital medicine. Scout Jiménez MD Resident 05/22/23 0956 * Maty Pereira RN - 05/22/2023 8:30 AM EDT In to evaluate pt and give pain meds. Pt self removed pulse ox probe, stating that it was hurting too much. Advised pt of need for monitoring oxygen levels. Pt continued to refuse to wear pulse ox probe. Pt also complaining of increased hoarseness. Pt's airway observed, with flashlight. Patent airway without redness and swelling noted. MDs advised. * Maty Pereira RN - 05/22/2023 7:47 AM EDT Pt refusing second BC to be obtained due to pain. MD in to evaluate. * Lisa Chahal MD - 05/22/2023 7:07 AM EDT Images from the original note were not included. ED Resident Note HPI: Ender Junior is a 67 y.o. 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 Patient noted rash on Sunday which has since spread to her whole body. She was seen at [place] emergency department earlier in the night and discharged home with a diagnosis of erythema multiform, she was encouraged to represent to the emergency department if her rash spread to her mucous membranes. She noted the rash in her mouth, endorsed dysuria and started feeling the rash on her eyelids which prompted her to come to [facility] emergency department. No new medications. She did have IV contrast dye prior to the rash starting. ROS as per HPI Vitals: ED Triage Vitals [05/22/23 0513] BP: 168/85 Heart Rate: 81 Resp: 12 Temp: 36.7 ??C (98.1 ??F) Temp src: Oral SpO2: 97 % O2 Device: n/a O2 Flow Rate (L/min): n/a Physical Exam Constitutional: General: She is in acute distress. Appearance: She is not ill-appearing. Eyes: Extraocular Movements: Extraocular movements intact. Pupils: Pupils are equal, round, and reactive to light. Cardiovascular: Rate and Rhythm: Tachycardia present. Pulses: Normal pulses. Pulmonary: Effort: Pulmonary effort is normal. No respiratory distress. Abdominal: General: Abdomen is flat. Tenderness: There is no guarding. Skin: Findings: Rash (Pictured below-full body, spares palms and soles, 2 lesions in the buccal mucosa, erythema to bilateral conjunctiva) present. Neurological: General: No focal deficit present. Mental Status: She is alert and oriented to person, place, and time. Cranial Nerves: No cranial nerve deficit. Psychiatric: Mood and Affect: Mood normal. No orders to display Procedures Assessment and Plan: 67 y.o. female with extensive rash with mucous membrane involvement. Vital signs are significant for tachycardia. Physical exam reveals a rash noted above. Differential diagnosis includes SSSS, SJS/TEN, erythema multiforme, urticaria. Significant concern for TEN. Dermatology consulted. They will come and see the patient. Basic labs sent off and fluid resuscitation started. Patient was also given pain control with morphine. Signed out in stable condition pending dermatology consult and lab work completion. Lisa Chahal MD Resident 05/22/23 0714 Associated attestation - Jerman Metcalf MD - 05/26/2023 7:05 AM EDT ED ATTENDING ATTESTATION The patient was seen in conjunction with Dr. Chahal, the resident physician. I have independently performed the plaza portions of the history and physical exam. I have reviewed all diagnostic studies personally including labs, imaging studies and EKGs. I have discussed the details of the case withthe resident and agree with the assessment and plan as described in the resident note above unless noted in my separate note. ED Course as of 05/26/23 0659 Tue May 22, 2023 6353 Differential Diagnosis: high suspicion for SJS/TEN, vs SSSS, autoimmune bullous diseases, bullous fixed drug eruption, erythema multiforme, thermal anna, phototoxic reactions, and TSS MDM: 67 yo F w/ chronic rash, with acute changes and severe pain. Tachycardia on arrival. Rash is raised, pruritic, bullous in areas. I have discussed the treatment and management of this patient with the following healthcare providers: dermatology I have reviewed the electronic medical records and summarize as follows: derm notes - concern for dermatomyositis vs scleroderma Given the patient's acute pain from rash, they have been prescribed IV morphine in the ED to treat their symptoms. Patient signed out to morning EM team pending final derm recommendations/pain control and lab results. * Ayala Granados RN - 05/22/2023 6:57 AM EDT Pt states that the morphine isn't helping her pain at this time. made aware * Ayala Granados RN - 05/22/2023 6:27 AM EDT Pt declines covid swab at this time - pt has concerns for the rash being in her nose and that the swab has to go in this area. made aware. documented in this encounter Miscellaneous Notes * Consult Note - Alyssa Padilla, [facility] - 05/27/2023 2:08 PM EDT Pharmacy Warfarin Management Service Daily Consult Note: Warfarin Management Plan: Ordering Provider: Earnestine De La Cruz MD Indications: Other (Enter Comment) (Protein C deficiency w/ hx of DVT (1977)) Status: Continuation of Home Therapy Goal INR: : 2.0 - 3.0 Outpatient Warfarin Management: Other (See Comment) (PCP: Renzo Castano, [employer] [phone]) Duration of Therapy: Indefinite Previous home regimen: 2.5 MWF, 5mg all other days Date INR Dose Ordered Pharmacist Assessment 05/23/2023 3.1 5 mg INR down from 5.1 yesterday. Pt here for cutaneous and mucosal pruritic rash. Rheumatology summary says pt switched to eliquis. Clarified with team that pt is on warfarin. [facility]21 [facility] regimen at 7.5mg Tues, Fri & 5mg all other days. Will f/u w/ provider to clarify. Consistent intake on gluten free diet. No BMs yet. Give warfarin 5mg tonight and follow up with INR tomorrow. 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 No diarrhea or emesis per patient but she is very nauseous and has very little intake. She manages her own medications and clarified her regimen (above). Hold warfarin tonight and dose conservatively going forward. 05/25/2023 5.8 Hold INR continuing to climb. Will hold dose this evening. No signs of active bleeding per nursing; confirmed with team. Patient denies any current diarrhea; initial notes did mention pt had 3 episodes of diarrhea in 24 hrs prior to admission. Poor PO intake documented in notes. Upon med review, active drug interactions are both continuation of home regimens. 05/26/2023 6.6 Hold Team is aware of critical INR & that pt is unable to follow up with PCP until Sunday at the earliest. Continued poor PO intake and 2/2 nausea. No new drug interactions. Likely deferring d/c until tomorrow. Spoke with patient and discussed plan for this weekend if she does discharge today. Will revist tomorrow and confirm if d/c deferred. 05/27/2023 3.6 1 mg - take dose at home Patient d/cing today. Recommend 1 mg dose tonight and follow-up with PCP tomorrow. Recent Labs 05/27/23 0509 05/26/23 0438 05/25/23 1852 05/25/23 0422 PT 40.3* 72.5* -- 63.6* INR 3.6 6.6* -- 5.8* PTT 52* 53* -- 48* HGB 10.3* 10.6* -- 9.3* HCT 30.4* 31.0* -- 28.0* PLATELET 197 189 -- 159 BUN 11 13 13 -- CREATININE 0.89 0.91 0.85 -- Estimated Creatinine Clearance: 53.7 mL/min (based on SCr of 0.89 mg/dL). Warfarin Drug Interactions (clinically relevant): Amitriptyline 20mg po QHS (Home medication), Dapsone 50mg po BID (Home medication) Assessment: Warfarin Sensitivity Assessment: Age 50-75 years old Today's INR: 3.6 is Supratherapeutic Pharmacist Asessment Notes: Patient d/cing today. Recommend 1 mg dose tonight and follow-up with PCP tomorrow. Plan: Warfarin dose ordered: 1 mg - take dose at home Pharmacist Plan notes: Daily INR Discharge Planning: Patient education: Completed Coumadin education booklet provided: No AVS documentation: Completed Healthwise documents attached to AVS: Vitamin K Diet;Warfarin Discharge Dosing Recommendations: Take 1 mg tonight and follow-up with primary care provider tomorrow. Thank you very much for the consult. We will continue to dose and monitor warfarin daily. If there is a change in medical condition that warrants discontinuation of warfarin, please discontinue the pharmacy warfarin consult and communicate this to the pharmacy warfarin management service. Pharmacy warfarin management service pager: #[phone] Alyssa Padilla RPH * Plan of Care - Gwen Roberts RN - 05/27/2023 1:16 PM EDT In am, pt stated that her would be here to pick her up at 1pm. MD notified of this. Pt tookall meds, c/o nausea but does not want to take compazine at this time. Home medications returned topatient. All personal belongings collected and with patient on discharge. PIV removed. Reinforced im portance of follow-up outpatient and need for labs on Sunday as per MD instructions. Discharge paperwork/meds reviewed with pt, , and daughter. Pt assisted to front entrance via WC by staff for d/c home with and daughter. After pt d/c, LIFT SLAB OPERATOR stated that patient got into racecar driver's seat to drive home. I called daughter and reminded her that patient should not be driving at this time, until she follows up with her PCP, as listed in dc instructions. Daughter Krissy stated that her mom was not driving, that they switched, andconfirmed that she should not do so for the time being. * Plan of Care - Young Bright RN - 05/27/2023 5:35 AM EDT OUTCOME EVALUATION NOTE: OUTCOME SUMMARY: AOx4, refusing Masimo/bed alarm. Pt c/o of nausea and belly pain - given prn tylenol and compazine with no relief. Offered saltines. ABD soft, BMx2 on day shift. Pt blaming gabapentin 100 dose on dayshift, refused 300mg at night. Warfarin still held on days r/t INR 6.6. Pt took all other meds w apple sauce. Pt upset and wants to leave tomorrow. PLAN MOVING FORWARD: Nausea control / PO intake Monitor generalized rash DVT study INDIVIDUALIZED FALL PREVENTION INTERVENTIONS: Patient-specific fall risk factors per assessment: [current deficits]: PIV, BLE numbness, GW Assistance [level of assistance required for transfers and ambulation]: SBA Supervision [direct monitoring required during toileting and ADLs]: IND Surveillance [continuous indirect monitoring]: Refusing Masimo Patient-specific fall prevention interventions for sensory deficits provided, if applicable: [X] N/A CARE PLAN GOAL OUTCOME EVALUATION: * Plan of Care - Gwen Roberts RN - 05/26/2023 2:50 PM EDT Patient Summary: A+Ox4, refusing bed alarm however ambulating in room and to bathroom with FWW. C/o persistent nausea - prn compazine given, effective for <2 hr, then nausea returned. MD notified and additional 1 dose compazine ordered. BMx2. Warfarin held d/t supratherapeutic INR. Rash noted on face (redness) and BUE (redness/blisters), lotions applied as per orders. 2 small stitches noted on LUE at biopsy site. Sacral mepilex removed for assessment and blanchable redness noted, small skin tear occurred during removal. Left KASIE, encouraged patient to stay off of tailbone and to lie on side/q2hr turn whilein bed. PO intake encouraged, however patient only able to tolerate minimal intake d/t nausea. Pt c/o involuntary movements in BLE in afternoon, and feeling jittery. Tearful and expressed desireto leave ama. Physician notified, came to bedside and pt agreeable to stay. New orders for DVT study, ferrous sulfate, gabapentin. Action List: Nausea control / PO intake Monitor generalized rash DVT duplex study * Consult Note - Alyssa Padilla, [facility] - 05/26/2023 2:26 PM EDT Pharmacy Warfarin Management Service Daily Consult Note: Warfarin Management Plan: Ordering Provider: Earnestine De La Cruz MD Indications: Other (Enter Comment) (Protein C deficiency w/ hx of DVT (1977)) Status: Continuation of Home Therapy Goal INR: : 2.0 - 3.0 Outpatient Warfarin Management: (Managed through her PCP: Renzo Castano, [employer] [phone] and has INRs drawn there as well) Duration of Therapy: Indefinite Previous home regimen: 2.5 MWF, 5mg all other days Date INR Dose Ordered Pharmacist Assessment 05/23/2023 3.1 5 mg INR down from 5.1 yesterday. Pt here for cutaneous and mucosal pruritic rash. Rheumatology summary says pt switched to eliquis. Clarified with team that pt is on warfarin. 05/21 [facility] summary listed pt regimen at 7.5mg Tues, Fri & 5mg all other days. Will f/u w/ provider to clarify. Consistent intake on gluten free diet. No BMs yet. Give warfarin 5mg tonight and follow up with INR tomorrow. 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 No diarrhea or emesis per patient but she is very nauseous and has very little intake. She manages her own medications and clarified her regimen (above). Hold warfarin tonight and dose conservatively going forward. 05/25/2023 5.8 Hold INR continuing to climb. Will hold dose this evening. No signs of active bleeding per nursing; confirmed with team. Patient denies any current diarrhea; initial notes did mention pt had 3 episodes of diarrhea in 24 hrs prior to admission. Poor PO intake documented in notes. Upon med review, active drug interactions are both continuation of home regimens. 05/26/2023 6.6 Hold Team is aware of critical INR & that pt is unable to follow up with PCP until Sunday at the earliest. Continued poor PO intake and 2/2 nausea. No new drug interactions. Likely deferring d/c until tomorrow. Spoke with patient and discussed plan for this weekend if she does discharge today. Will revist tomorrow and confirm if d/c deferred. Recent Labs 05/26/23 0438 05/25/23 1852 05/25/23 0422 05/24/23 0821 05/23/23 0901 05/23/23 0346 PT 72.5* -- 63.6* 47.3* < > -- INR 6.6* -- 5.8* 4.3 < > -- PTT 53* -- 48* 46* < > -- HGB 10.6* -- 9.3* 9.2* -- 9.9* HCT 31.0* -- 28.0* 27.7* -- 31.4* PLATELET 189 -- 159 164 -- 188 BUN 13 13 -- -- -- 25* CREATININE 0.91 0.85 -- -- -- 1.11 < > = values in this interval not displayed. Estimated Creatinine Clearance: 52.5 mL/min (based on SCr of 0.91 mg/dL). Warfarin Drug Interactions (clinically relevant): Assessment: Warfarin Sensitivity Assessment: Age 50-75 years old Today's INR: 6.6 is Supratherapeutic Pharmacist Asessment Notes: Team is aware of critical INR & that pt is unable to follow up withPCP until Sunday at the earliest. Continued poor PO intake and 2/2 nausea. No new drug interactions. Likely deferring d/c until tomorrow. Spoke with patient and discussed plan for this weekend if shedoes discharge today. Will revist tomorrow and confirm if d/c deferred. Plan: Warfarin dose ordered: Hold Pharmacist Plan notes: Daily INR Discharge Planning: Thank you very much for the consult. We will continue to dose and monitor warfarin daily. If there is a change in medical condition that warrants discontinuation of warfarin, please discontinue the pharmacy warfarin consult and communicate this to the pharmacy warfarin management service. Pharmacy warfarin management service pager: #[phone] Alyssa Padilla RPH * Plan of Care - Young Bright RN - 05/26/2023 6:28 AM EDT OUTCOME EVALUATION NOTE: OUTCOME SUMMARY: Pt A&Ox4, VSS on RA. Patient much more comfortable through the night. No c/o of nausea. Took all bowel regimen meds as ordered. PLAN MOVING FORWARD: Pain control (PRN PO oxycodone and SUBCUT Dilaudid) Nausea control Monitor generalized rash Optimize bowel regimen INDIVIDUALIZED FALL PREVENTION INTERVENTIONS: Patient-specific fall risk factors per assessment: [current deficits]: PIV, Assistance [level of assistance required for transfers and ambulation]: SBA w FWW Supervision [direct monitoring required during toileting and ADLs]: SBA Surveillance [continuous indirect monitoring]: Radha Patient-specific fall prevention interventions for sensory deficits provided, if applicable: [X] N/A CARE PLAN GOAL OUTCOME EVALUATION: * Care Management - Adeline Bates RN - 05/25/2023 2:57 PM EDT OFFICE OF CARE MANAGEMENT PROGRESS NOTE LOS: Hospital Day 3 days Chart reviewed, care reviewed with primary team and at interdisciplinary rounds. Patient continues to meet inpatient level of care related to: symptom management, lab/INR monitoring. Decision Maker: Self Functional status prior to admission: Assistive Equipment and Assistive Person Home Environment: Others in the home: spouse. Current Living Arrangements: home/apartment/condo. Accessibility Concerns: 5 stairs into house. All one floor.. Current Functional Ability: Assistive Person and Equipment DME used at home: cane - quad, wheelchair - manual, walker - rolling Patient is insured through: Primary Insurance: [employer] MANAGED MEDICARE Payor: [employer]ED [employer]ICARE / Plan: [employer] MA[employer]ED [employer]IC[employer] PPO / Product Type: *No Product type* / Secondary Insurance: N/A Last Physical Therapy Recommendation: to be determined pending medical status & functional progression with to be determined Last 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 Therapy Recommendation: with Plan for discharge is: Pending Hospital Course and PT/OT Recommendations Outpatient Agency/Support Group Needs: None I have met with the patient to: discuss discharge planning needs. provide the [facility], Office of Care Management letter from the Deputy Director Of Nursing pertaining to rehab referrals. provide a letter describing our affiliations within the [facility] and educate about their right to choose where referrals are sent. provide a list of Home Health Agencies / Durable Medical Equipment vendors which serve their preferred geographic area. provided patient with [facility] Star Quality Rating handout. They have requested referrals to: [facility] [place] [address] Note routed to a Junior Software Developer who will communicate referrals to facilities and provide any required information. Transportation: family or friend will provide Barriers to discharge: None Psych: Adjustment to diagnosis/illness, Coping/stress, Mental health Supports: Housing insecure Financial: Financial/insurance Plan going forward: Patient refused PT/OT today due to nausea. Team encouraging her and anticipating some home PT/OT. Care Management will continue to follow and assist with discharge planning and coordination of care as indicated. 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 Pt here for cutaneous and mucosal pruritic rash. Rheumatology summary says pt switched to eliquis. Clarified with team that pt is on [facility]farin. [facility] 7.5[facility] Tues, Fri & 5mg all other days. Will f/u w/ provider to clarify. Consistent intake on gluten free diet. No BMs yet. Give warfarin 5mg tonight and follow up with INR tomorrow. 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 No diarrhea or emesis per patient but she is very nauseous and has very little intake. She manages her own medications and clarified her regimen (above). Hold warfarin tonight and dose conservatively going forward. 05/25/2023 5.8 Hold INR continuing to climb. Will hold dose this evening. No signs of active bleeding per nursing; confirmed with team. Patient denies any current diarrhea; initial notes did mention pt had 3 episodes of diarrhea in 24 hrs prior to admission. Poor PO intake documented in notes. Upon med review, active drug interactions are both continuation of home regimens. Recent Labs 05/25/23 0422 05/24/23 0821 05/23/23 0901 05/23/23 0346 05/22/23 2206 05/22/23 0647 PT 63.6* 47.3* 34.8* -- -- -- INR 5.8* 4.3 3.1 -- -- -- PTT 48* 46* 46* -- -- -- HGB 9.3* 9.2* -- 9.9* -- -- HCT 28.0* 27.7* -- 31.4* -- -- PLATELET 159 164 -- 188 -- -- BUN -- -- -- 25* 27* 32* CREATININE -- -- -- 1.11 1.21* 1.33* Estimated Creatinine Clearance: 43.1 mL/min (based on SCr of 1.11 mg/dL). Warfarin Drug Interactions (clinically relevant): Amitriptyline 20mg po QHS (Home medication), Dapsone 50mg po BID (Home medication) Assessment: Warfarin Sensitivity Assessment: Age 50-75 years old Today's INR: 5.8 is Supratherapeutic Pharmacist Asessment Notes: INR continuing to climb. Will hold dose this evening. No signs of active bleeding per nursing; confirmed with team. Patient denies any current diarrhea; initial notes did mention pt had 3 episodes of diarrhea in 24 hrs prior to admission. Poor PO intake documented in notes. Upon med review, active drug interactions are both continuation of home regimens. Plan: Warfarin dose ordered: Hold Pharmacist Plan notes: Daily INR Discharge Planning: Thank you very much for the consult. We will continue to dose and monitor warfarin daily. If there is a change in medical condition that warrants discontinuation of warfarin, please discontinue the pharmacy warfarin consult and communicate this to the pharmacy warfarin management service. Pharmacy warfarin management service pager: #[phone] Alyssa Padilla RPH * Consult Note - Grupo Onofre MD - 05/24/2023 2:30 PM EDT Images from the original note were not included. INTERVENTIONAL PULMONOLOGY INPATIENT CONSULT NOTE SECTION OF PULMONARY & CRITICAL CARE MEDICINE Patient Name: Ender Junior : 1955 Medical Record: [id number] Date of Service: 05/24/2023 Hospital Day #: Hospital Day: 3 Location: [address] [place] [address] Requesting Provider: Gucci Miller MD Reason for Consultation: Multiple pulmonary nodules History of present illness: Ms. Ender Junior is a 67 y.o. woman admitted to [facility] on 05/22/2023 with a painful pruritic rash to the hospital medicine service. Interventional Pulmonology is asked to consult for multiple pulmonary nodules. Ms. 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 Junior further for possible malignancy. In speaking with Mr. Junior she reports feeling well from a respiratory standpoint. She has an occasional dry cough. She denies hemoptysis, fever/chills, night sweats. Her biggest complaint right now is nausea, which has prevented her from being able to sleep. Ms. Junior recalls having prior CT scans at [facility] and has a history of pneumonias. She has a 52 pack/year smoking history and her last cigarette was 1 week ago. She does not have any family history of lung cancer, but her mother was diagnosed from breast cancer in her 40's. Review of Systems: A 12 point ROS was negative aside from as listed in the HPI. Objective: Patient Vitals for the past 8 hrs: BP Temp Temp src Resp SpO2 05/24/23 0840 161/77 36.9 ??C (98.4 ??F) Oral 18 93 % General: This is a 67 y.o. female, NAD, alert, on room air, erythema rash with blisters diffuse over her body (see dermatology note for further details) HEENT: Moist mucous membranes Neck: Supple Lymphatics: No obvious cervical lymphadenopathy Cardiovascular: Nl s1/s2, rrr, no murmurs Respiratory: CTAB, no adventitious LS GI: soft, nt, nd Musculoskeletal: Normal bulk and tone Extremities: no LE edema noted, left lower leg large than the right without any erythema/swelling and no clubbing Neurologic: Alert and oriented, moves all extremities appropriately, no obvious focal deficits Psychologic: Normal mood and affect. Pertinent Diagnostics (Imaging personally reviewed): 05/17/2023 CT chest abdomen pelvis w contrast: CT OF THE CHEST: Pulmonary parenchyma: There is a 5 mm pulmonary nodule in the left upper lobe. There are curvilinear bands of scarring in the ventral aspects of the bilateral upper lobes. There are multifocal sub-5 mm semisolid nodules in the right upper lobe and to a lesser extent left upper lobe. There are curvilinear bands of atelectasis at the bilateral lung bases. There is mild centrilobular emphysema with an apical predominance. Airways: Central airways are patent. There is no endobronchial or endotracheal lesion. There are layering secretions within the trachea. Pleura: There is no pleural effusion or pneumothorax. Lymph nodes:There are no pathologically enlarged lymph nodes. Heart, pericardium, and great vessels: Cardiac size is within normal limits. There is physiologic pericardial fluid. There is mild to moderate multifocal atherosclerotic calcification of the coronary arteries. The aorta is normal in course and caliber. There is mild atherosclerotic calcification of the aortic arch extending into the proximal great vessels. There is a normal three-vessel aortic arch configuration. There is less than 50% stenosis within the proximal left subclavian artery due to noncalcified atheroma. The pulmonary arteries are normal in course and caliber; there are no central intraluminal filling defects. Other mediastinal structures: The mediastinal fat is preserved. Limited evaluation of the esophagus is unremarkable. Lower neck: There is a 15 mm lobulated right thyroid nodule. Body wall soft tissues: Normal. Skeletal structures: As detailed below. IMPRESSION 1. Apical predominant semisolid bilateral pulmonary nodules, most consistent with an infectious or inflammatory etiology. Given high risk of malignancy, short-term CT of the chest, possibly in 3 months, can be obtained to ensure stability or resolution. 2. Mild centrilobular emphysema. 3. Hepatic steatosis. 4. Moderate atherosclerotic calcification particularly of the infrarenal abdominal aorta with a minimal luminal diameter of 8 x 11 mm. 5. 15 mm lobulated right thyroid nodule. Per ACR white paper guidelines, follow-up nonemergent ultrasound the thyroid is recommended. 6. Status post left common iliac venous stenting, patent. Multiple bilateral upper lobe small ground glass/semisolid nodules measuring up to 5 mm Labs: Recent Results (from the past 12 hour(s)) Calcium Result Value Calcium 8.9 Magnesium Result Value Magnesium 0.82 Phosphorus Result Value Phosphorus 2.6 APTT Result Value PTT 46 (H) Prothrombin Time Result Value PT 47.3 (H) INR 4.3 Hemogram Result Value WBC 3.8 (L) RBC 3.05 (L) Hemoglobin 9.2 (L) Hematocrit 27.7 (L) MCV 90.8 MCH 30.2 MCHC 33.2 Platelets 164 RDWSD 49.1 (H) RDWCV 14.6 (H) MPV 9.5 nRBC % Auto 0.0 nRBC Abs Auto 0.000 Differential, Automated Result Value Neutrophils % 66.5 Neutr Abs (ANC) 2.53 Lymphocytes % 25.0 Lymphocytes Abs 1.0 Monocytes % 6.1 Monocyte Abs 0.2 (L) Eosinophils % 1.8 Eosinophils Abs 0.1 Basophils % 0.3 Basophils Abs 0.0 Immature Gran % 0.30 Abby Gran Abs 0.01 POCT Glucose Result Value POC Glucose 180 Assessment: Ms. Ender Junior is a 67 y.o. woman admitted to [facility] on 05/22/2023 with a painful pruritic rash to the hospital medicine service. Interventional Pulmonology is asked to consult for multiple pulmonary nodules. Ms. 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 In review of 's CT imaging she has multiple upper lobe bilateral ground glass and semisolid nodules measuring up to 5mm. We reviewed with her that nodules could represent inflammation, malignancy, infection, or a benign process, such as non-calcified granuloma. The nodules are too small tobiopsy at this time without a surgical biopsy. We will plan to obtain her prior CT chest imaging from [facility] and if her nodules are new then we will plan for a repeat CT in 6-8 weeks with an outpatientfollow up. If her nodules have been present in prior imaging and are stable or smaller then we can cancel a follow up CT chest scan. We encourage Ms. Junior to continue to abstain from smoking and discussed the importance to her health. Recommendations: Obtain prior CT chest imaging from [facility] Follow up with IP clinic outpatient with a CT chest in 6-8 weeks Smoking cessation We will sign-off at this time. Please do not hesitate to call if new questions arise. Betyz Johns APRN, 05/24/2023, 2:54 PM Interventional Pulmonology Section of Pulmonary & Critical Care Pager: [phone] Attending attestation: Ms. Ender Junior was seen, examined and discussed with Betzy Johns APRN. I reviewed the above note and made any necessary edits. I agree in full with the history, exam, assessment and plan. Grupo Onofre MD Pulmonary and Critical Care Medicine [facility] [address] Dept Room [address] [place] [address] Phone Pul Generic: [phone] [email or web address] Pager #[phone] I performed the substantive portion of today's encounter with this patient. This included review and interpretation of labs and imaging, review of the medical record, and medical decision making withBetzy Johns APRN (modifier FS). * Consult Note - Sekou Philip, [facility] - 05/24/2023 12:11 PM EDT Pharmacy Warfarin Management Service Daily Consult Note: Warfarin Management Plan: Ordering Provider: Earnestine De La Cruz MD Indications: Other (Enter Comment) (Protein C dificiency w/ hx of DVT/PE) Status: Continuation of Home Therapy Goal INR: : 2.0 - 3.0 Outpatient Warfarin Management: (Managed through her PCP: Renzo Castano, [employer] [phone] and has INRs drawn there as well) Duration of Therapy: Indefinite Previous home regimen: 2.5 MWF, 5mg all other days Date INR Dose Ordered Pharmacist Assessment 05/23/2023 3.1 5 mg INR down from 5.1 yesterday. Pt here for cutaneous and mucosal pruritic rash. Rheumatology summary says pt switched to eliquis. Clarified with team that pt is on warfarin. 05/21 [facility] listed pt regimen at 7.5mg Tues, Fri & 5mg all other days. Will f/u w/ provider to clarify. Consistent intake on gluten free diet. No BMs yet. Give warfarin 5mg tonight and follow up with INR tomorrow. 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 No diarrhea or emesis per patient but she is very nauseous and has very little intake. She manages her own medications and clarified her regimen (above). Hold warfarin tonight and dose conservatively going forward. Recent Labs 05/24/23 0821 05/23/23 0901 05/23/23 0346 05/22/23 2206 05/22/23 0647 05/22/23 0600 05/22/23 0553 PT 47.3* 34.8* -- -- -- 61.9* -- INR 4.3 3.1 -- -- -- 5.5* -- PTT 46* 46* -- -- -- 42* -- HGB 9.2* -- 9.9* -- -- -- 10.6* HCT 27.7* -- 31.4* -- -- -- 32.5* PLATELET 164 -- 188 -- -- -- 233 BUN -- -- 25* 27* 32* -- 33* CREATININE -- -- 1.11 1.21* 1.33* -- 1.32* Estimated Creatinine Clearance: 43.1 mL/min (based on SCr of 1.11 mg/dL). Warfarin Drug Interactions (clinically relevant): Dapsone, Amitriptyline, Prednisone 20mg PROPELLER ENGINEER Assessment: Warfarin Sensitivity Assessment: Age 50-75 years old Today's INR: 4.3 is Supratherapeutic Pharmacist Asessment Notes: INR increased quickly - likely iso high dose steroid use PROPELLER ENGINEER and N/V. No diarrhea or emesis per patient but she is very nauseous and has very little intake. She manages her own medications and clarified her regimen (above). Hold warfarin tonight and dose conservatively going forward. Plan: Warfarin dose ordered: Hold Pharmacist Plan notes: Daily INR Discharge Planning: Thank you very much for the consult. We will continue to dose and monitor warfarin daily. If there is a change in medical condition that warrants discontinuation of warfarin, please discontinue the pharmacy warfarin consult and communicate this to the pharmacy warfarin management service. Pharmacy warfarin management service pager: #[phone] SEKOU PHILIP RPH * Consult Note - Barry Fleming MD - 05/24/2023 7:57 AM EDT Psychiatric Inpatient Consultation Follow Up Note Time of Consultation: 1:00 pm Reason for consultation: Originally capacity to leave AMA and SI Information Sources: Patient. Chief Complaint (in patient's own words): Rough night Interim History: Interval Events: -Derm Recs: Stop acyclovir, start hydrocortisone cream, GI consult for abdominal pain, expedited pulmonary workup -Nursing: Patient refused masimo, crying overnight -Pain Control: Dilaudid 0.2mg q4h (used 1x yesterday), Oxycodone 5mg q4h PRN (used 3x yesterday, once today at 221) Interview: Sylvia notes that she had a bad night with nausea and some vomiting. She recently received medication and notes an improvement in her symptoms. She feels that her pain is being better controlled. She denies SI and feels safe in the hospital. She notes that should her thoughts worsen she would reach out to her . When prompted she states she would also talk to nursing should these thoughts arise. Denies HI, AH/VH, paranoia. Independent Collateral: Review of Systems: Psychiatric: See above Physical Exam: Last value Range last 24 hrs Temperature Temp: 37.2 ??C (99 ??F) Temp: [36.3 ??C (97.3 ??F)-37.5 ??C (99.5 ??F)] Heart Rate Heart Rate: 94 Heart Rate: -- Blood Pressure BP: 166/81 BP: (124-166)/(68-84) Respiratory Rate Resp: 18 Resp: [18-20] SpO2 SpO2: 96 % SpO2: [94 %-96 %] Mental Status Examination: Musculoskeletal System: Muscle Strength/Tone (note atrophy, abnormal movements): no abnormal movements Gait and Station: Not assessed Psychiatric: Appearance: age appropriate and dressed in hospital attire Behavior: cooperative with the interview and good eye contact Speech: normal pitch, normal volume, normal rate, and normal rhythm Language: fluent in samoan and without paraphasic errors Mood: Better Affect: full and mood-congruent Thought Process: linear and logical Associations: intact Thought Content: no homicidal ideation no suicidal ideation Perception: denied auditory hallucinations denied visual hallucinations not observed responding to internal stimuli Orientation: grossly intact by interview Attention/Concentration: Attends interview Cognition: grossly intact by interview Memory: recent and remote memory grossly intact Fund of Knowledge: appropriate for age and level of functioning Insight: fair Judgment: fair Pertinent Diagnostic Testing (include your own review/interpretation of results): Last 3 wbc, hgb, hct plt Recent Labs 05/23/23 0346 05/22/23 0553 03/12/23 1156 WBC 4.5 9.0 5.6 HGB 9.9* 10.6* 10.3* HCT 31.4* 32.5* 33.0* PLATELET 188 233 173 Last 3 Lytes Recent Labs 05/23/23 0346 05/22/23 2206 05/22/23 0647 NA 131* 131* 128* K 5.1* 4.9 5.1* CL 100 101 95* CO2 21* 20* 22 BUN 25* 27* 32* CREATININE 1.11 1.21* 1.33* Last 3 LFTs Recent Labs 05/23/23 0346 05/22/23 0647 05/22/23 0553 AST 16 17 Not Perf ALT 18 20 Not Perf ALKPHOS 114* 127* 134* BILITOT 0.3 0.3 0.3 External Record Review (include your own review of external notes from any unique sources): Reviewed previous notes, spoke to primary team regarding current disposition Assessment: Ender Junior is a 67 y.o. female w/ PMH of celiac disease, protein C deficiency, PAD, DVTs/PEon warfarin, depression and diabetes, admitted to [facility] on 05/22/2023, for painful pruritic blistering rash over her arms, legs and trunk that has now spread to her mucosa with psychiatry consulted forcapacity to leave AMA and suicidal statements Initial Safety Assessment: Ender's chronic suicide risk is moderate given history of depression and prior suicide attempt. Her current suicide risk is elevated from baseline given worsening of medical condition and depressive symptoms. While Ender is not experiencing active suicidal thoughts, she does have passive wishes and is unable to state she could keep herself safe (at home and here in the hospital). Additionally, I feel she may be at risk to act impulsively given her severe pain that she is experiencing.Given her risk factors and inability to safety plan, recommend continuing 1:1 for patient safety tonight, and re-evaluate when patient is better able to engage in safety planning. 05/24: On exam today patient denied SI and states that her pain is better controlled. She states that she would reach out to her should her thoughts worsen and also will touch base with staff. She has been behaviorally appropriate per chart review without the need for agitation PRNs. At this pointpatient does not require 1:1 for safety concerns. Capacity was not formally evaluated today given no mention by patient or primary team of patient discharging or refusing care. Diagnoses (chronic, acute, include progression/severity): Likely adjustment disorder with depressive mood 2/2 to medical condition Plan/Recommendations: -Initial evaluation on 05/22 found to not have capacity to leave AMA -Patient not formally evaluated for capacity today- please re-engage as needed -Patient no longer requires 1:1 for safety concerns -Psychiatry to sign off at this time Patient on IEA Status? IEA: NO, patient is not on IEA, but decision making capacity may require reassessment by psychiatry if patient attempts to leave AMA. Recommendations were communicated to primary grocery team member Dr. Coppola. Barry Fleming MD 05/24/2023 Coding Determination 1. Problems/Diagnosis (check one): High Minimal refers to a single minor problem. Example: Poor sleep due to noise in the hospital room. Low refers to two minor problems, or one stable/uncomplicated illness. Examples: Major depression in remission; adjustment disorder with depressed mood. Moderate refers to one illness with new onset, progression, exacerbation, complication, or side effects; or two stable problems. Examples: Recurrent major depression with exacerbation or progression or side effects of treatment; stable schizophrenia and alcohol use disorder; acute alcohol withdrawal; anorexia with systemic symptoms such as bradycardia. High refers to one chronic problem with severe progression, exacerbation, or side effects; or one problem with threat to life or bodily function. Examples: any psychiatric illness with suicidal or homicidal ideation or thoughts of self- harm; delirium; any eating disorder with severe medical consequences; major depression with significant functional decline; any severe side effects of psychiatric interventions (NMS, hyponatremia, lithium toxicity syndrome, etc); any psychiatric illness meeting the severe specifier. 2. Data Review/Analysis (check one): Moderate Low refers to (1) review of notes and test results or (2) assessment from a collateral source. Moderate requires one of the following: All three of the following: review of notes, review of test results, assessment from a collateral source. Discussion of test interpretation or management with an external physician/provider (primary team included). High requires both of the following (same options from Moderate above): All three of the following: review of notes, review of test results, assessment from a collateral source. Discussion of test interpretation or management with an external physician/provider (primary team included). 3. Patient Risk (check one): High Minimal refers to minimal risk from additional testing/treatment. Example: Bereavement. No medications recommended. Low refers to low risk from additional testing/treatment. Example: only interventions are minimallyinvasive or otherwise low risk (serum labs, melatonin, continuing an SSRI). Moderate refers to moderate risk from additional testing/treatment. Examples: starting prescriptionmedication with only moderate risk. Moderate also includes diagnosis or treatment significantly limited by social determinants of health such as food/housing insecurity, transportation issues, financial limitations, etc. High refers to high risk from additional testing/treatment. Examples: therapies requiring monitoring of serum level (lithium, valproate), medications with specific identified risks (QTc-prolonging medications in certain patients, SSRIs in patients with risk of bleeding). Discussions of higher levels of psychiatric intervention/care (1:1 sitter, voluntary psychiatric hospitalization, IEA, ECT). Patients who may require medical interventions against their wishes when they lack capacity to refuse those interventions; patients who lack capacity to choose to leave the hospital AMA. Discussion of high risk interventions that may be necessary to ensure safety (parenteral medications for managementof agitation; restraints; security presence). Risk of acute withdrawal. Complexity of MDM Determination: Choose the appropriate level in the first 3 columns based upon what you indicated above. Then 2 outof 3 elements must be met to qualify for the highest appropriate level of complexity. Problems/Diagnosis Data Review/Analysis Patient Risk Complexity of Medical Decision-Making CPT CODE [] Minimal/Low [] Low [] Minimal/Low [] Low 82931 [] Moderate [x] Moderate [] Moderate [] Moderate 69072 [x] High [] High [x] High [x] High 14572 Final Coding Determination: High Associated attestation - Kurtis Owens MD - 06/22/2023 8:58 AM EDT Psychiatry Attending Note I discussed the case with the resident, and saw and evaluated the patient (on 05/24) within 24 hoursof the service described in the resident's note. I reviewed the patient???s history during the visit and I agree with the details as written. My exam confirms the resident's findings. The assessment and plan were formulated in discussion with me and I agree with them as documented. Major issues addressed/discussed: Can d/c 1:1 sitter at this time; no psychiatric contraindication to discharge. Pt has been able to adequately safety-plan, no current acute SI/intent/plan. Kurtis Owens MD Psychiatry Consultation Pager: [phone] * Plan of Care - Stanton Du RN - 05/23/2023 8:13 PM EDT OUTCOME EVALUATION NOTE: OUTCOME SUMMARY: Patient admitted to unit around ~1600. Patient reporting 4/10 pain in generalized rash/blisters. Derm at bedside. 1:1 sitter maintained. Patient resting in between care. Patient refusing continuous Masimo monitoring, see alternative note. PLAN MOVING FORWARD: 1:1 safety director Pain control (PRN PO oxycodone and SUBCUT Dilaudid) Monitor generalized rash Monitor result review for skin biopsy (in progress) INDIVIDUALIZED FALL PREVENTION INTERVENTIONS: Patient-specific fall risk factors per assessment: [current deficits]: x1 PIV, generalized weakness Assistance [level of assistance required for transfers and ambulation]: SBA with walker Supervision [direct monitoring required during toileting and ADLs]: Yes 1:1 sitter for SI Surveillance [continuous indirect monitoring]: N/A Masimo refusal. Patient-specific fall prevention interventions for sensory deficits provided, if applicable: [X] N/A CARE PLAN GOAL OUTCOME EVALUATION: Problem: Adult Inpatient Plan of Care Goal: Plan of Care Review Outcome: Ongoing (Interventions Implemented as Appropriate) Goal: Patient-Specific Goal (Individualized) Outcome: Ongoing (Interventions Implemented as Appropriate) Goal: Absence of Hospital-Acquired Illness or Injury Outcome: Ongoing (Interventions Implemented as Appropriate) Goal: Optimal Comfort and Wellbeing Outcome: Ongoing (Interventions Implemented as Appropriate) Goal: Readiness for Transition of Care Outcome: Ongoing (Interventions Implemented as Appropriate) Problem: Fall Injury Risk Goal: Absence of Fall and Fall-Related Injury Outcome: Ongoing (Interventions Implemented as Appropriate) Problem: Pain Acute Goal: Acceptable Pain Control and Functional Ability Outcome: Ongoing (Interventions Implemented as Appropriate) * Consult Note - Sekou Philip [facility] - 05/23/2023 2:06 PM EDT Pharmacy Warfarin Management Service Daily Consult Note: Warfarin Management Plan: Ordering Provider: Earnestine De La Cruz MD Indications: Other (Enter Comment) (Protein C dificiency w/ hx of DVT/PE) Status: Continuation of Home Therapy Goal INR: : 2.0 - 3.0 Outpatient Warfarin Management: (Unclear - will clarify w/ PCP) Duration of Therapy: Indefinite Previous home regimen: 7.5 mg Tues, Fri & 5 mg all other days Date INR Dose Ordered Pharmacist Assessment 05/23/2023 3.1 5 mg INR down from 5.1 yesterday. Pt here for cutaneous and mucosal pruritic rash. Rheumatology summary says pt switched to eliquis. Clarified with team that pt is on warfarin. 05/21 [facility] summary listed pt regimen at 7.5mg Tues, Fri & 5mg all other days. Will f/u w/ provider to clarify. Consistent intake on gluten free diet. No BMs yet. Give warfarin 5mg tonight and follow up with INR tomorrow. Recent Labs 05/23/23 0901 05/23/23 0346 05/22/23 2206 05/22/23 0647 05/22/23 0600 05/22/23 0553 PT 34.8* -- -- -- 61.9* -- INR 3.1 -- -- -- 5.5* -- PTT 46* -- -- -- 42* -- HGB -- 9.9* -- -- -- 10.6* HCT -- 31.4* -- -- -- 32.5* PLATELET -- 188 -- -- -- 233 BUN -- 25* 27* 32* -- 33* CREATININE -- 1.11 1.21* 1.33* -- 1.32* Estimated Creatinine Clearance: 43.1 mL/min (based on SCr of 1.11 mg/dL). Warfarin Drug Interactions (clinically relevant): Dapsone, Amitriptyline Assessment: Warfarin Sensitivity Assessment: Age 50-75 years old Today's INR: 3.1 is Supratherapeutic Pharmacist Asessment Notes: INR down from 5.5 yesterday. Pt here for cutaneous and mucosal pruriticrash. Rheumatology summary says pt switched to eliquis. Clarified with team that pt is on warfarin.05/21 [facility] clinical summary listed pt regimen at 7.5mg Tues, Fri & 5mg all other days. Will f/u w/ provider to clarify. Consistent intake on gluten free diet. No BMs yet. Give warfarin 5mg tonight and follow up with INR tomorrow. Plan: Warfarin dose ordered: 5 mg Pharmacist Plan notes: Daily INR Discharge Planning: Patient education: Not started Coumadin education booklet provided: No (Auto Secure documentation) Auto Secure documents attached to AVS: Vitamin K Diet;Warfarin Thank you very much for the consult. We will continue to dose and monitor warfarin daily. If there is a change in medical condition that warrants discontinuation of warfarin, please discontinue the pharmacy warfarin consult and communicate this to the pharmacy warfarin management service. Pharmacy warfarin management service pager: #[phone] [facility] * Consult Note - Barry Fleming MD - 05/23/2023 12:43 PM EDT Psychiatric Inpatient Consultation Follow Up Note Time of Consultation: 1:00 pm Reason for consultation: Originally capacity to leave AMA and SI Information Sources: Patient. Chief Complaint (in patient's own words): This pain Interim History: Interval Events: -Patient continues to be cooperative with care but notably anxious/irritable -Workup continues to be pending for generalized rash with dermatology consulted -Currently receiving oxycodone q4hPRN and dilaudid q4h PRN Interview: Sylvia notes to be in significant pain still. She tells me that she recently received dilaudid and so is hoping that this is helpful. She notes frustration that the doctor who ordered the contrast andin her mind caused this hasn't come to see her yet. She endorses as history of suicidal ideation that predates when this started. She continues to endorse SI and attributes some of this to her ongoing severe pain. She denies any acute plan. Is initially hesitant to say that she would reachout to nursing should her suicidal thoughts worsen. Independent Collateral: Review of Systems: Psychiatric: See above Physical Exam: Last value Range last 24 hrs Temperature Temp: 36.5 ??C (97.7 ??F) Temp: [36.5 ??C (97.7 ??F)-37 ??C (98.6 ??F)] Heart Rate Heart Rate: 94 Heart Rate: [93-105] Blood Pressure BP: 128/72 BP: (120-144)/(57-77) Respiratory Rate Resp: 20 Resp: [14-20] SpO2 SpO2: 95 % SpO2: [91 %-97 %] Mental Status Examination: Musculoskeletal System: Muscle Strength/Tone (note atrophy, abnormal movements): no abnormal movements Gait and Station: Not assessed Psychiatric: Appearance: age appropriate and dressed in hospital attire Behavior: cooperative with the interview, poor eye contact, and intermittently touching her face orother areas in pain Speech: normal pitch, normal volume, normal rate, and normal rhythm Language: fluent in samoan and without paraphasic errors Mood: I'm in pain Affect: mood-congruent and limited secondary to ongoing pain Thought Process: linear and logical Associations: intact Thought Content: endorsed SI without plan or intent no homicidal ideation Perception: denied auditory hallucinations denied visual hallucinations not observed responding to internal stimuli Orientation: grossly intact by interview Attention/Concentration: Attends interview Cognition: grossly intact by interview Memory: recent and remote memory grossly intact Fund of Knowledge: appropriate for age and level of functioning Insight: limited Judgment: limited Pertinent Diagnostic Testing (include your own review/interpretation of results): Last 3 wbc, hgb, hct plt Recent Labs 05/23/23 0346 05/22/23 0553 03/12/23 1156 WBC 4.5 9.0 5.6 HGB 9.9* 10.6* 10.3* HCT 31.4* 32.5* 33.0* PLATELET 188 233 173 Last 3 Lytes Recent Labs 05/23/23 03405/22/23 2206 05/22/23 0647 NA 131* 131* 128* K 5.1* 4.9 5.1* CL 100 101 95* CO2 21* 20* 22 BUN 25* 27* 32* CREATININE 1.11 1.21* 1.33* Last 3 LFTs Recent Labs 05/23/23 0346 05/22/23 0647 05/22/23 0553 AST 16 17 Not Perf ALT 18 20 Not Perf ALKPHOS 114* 127* 134* BILITOT 0.3 0.3 0.3 External Record Review (include your own review of external notes from any unique sources): Reviewed previous notes, spoke to primary team regarding current disposition Assessment: Ender Junior is a 67 y.o. female w/ PMH of celiac disease, protein C deficiency, PAD, DVTs/PEon warfarin, depression and diabetes, admitted to [facility] on 05/22/2023, for painful pruritic blistering rash over her arms, legs and trunk that has now spread to her mucosa with psychiatry consulted forcapacity to leave AMA and suicidal statements Initial Safety Assessment: Ender's chronic suicide risk is moderate given history of depression and prior suicide attempt. Her current suicide risk is elevated from baseline given worsening of medical condition and depressive symptoms. While Ender is not experiencing active suicidal thoughts, she does have passive wishes and is unable to state she could keep herself safe (at home and here in the hospital). Additionally, I feel she may be at risk to act impulsively given her severe pain that she is experiencing.Given her risk factors and inability to safety plan, recommend continuing 1:1 for patient safety tonight, and re-evaluate when patient is better able to engage in safety planning. 05/23: On exam today patient continues to endorse passive SI in the setting of ongoing increased pain. Shenotes that her current SI is conditional on pain but also endorses SI prior to . Given her current state in pain did not perform extensive background regarding formal diagnosis. Likely her current presentation is an adjustment disorder with depressive mood but formal diagnosis cannot be established yet. Patient denies any active plan or intent but is hesitatnt to state that she would reach out to nursing should SI worsen. Would recommend continuing 1:1 for at least one more day while team continues to optimize pain regimen. Psychiatry will continue to follow. Capacity was not formallyevaluated today given no mention by patient or primary team of patient discharging or refusing care. Diagnoses (chronic, acute, include progression/severity): Likely adjustment disorder with depressive mood 2/2 to medical condition Plan/Recommendations: -Initial evaluation on 05/22 found to not have capacity to leave AMA -Patient not formally evaluated for capacity today- please re-engage as needed -Continue 1:1 as patient not able to actively engage in safety planning with ongoing fluctuating pain Patient on IEA Status? IEA: NO, patient is not on IEA, but decision making capacity may require reassessment by psychiatry if patient attempts to leave AMA. Recommendations were communicated to primary grocery team member Dr. Pemberton. Barry Fleming MD 05/23/2023 Coding Determination 1. Problems/Diagnosis (check one): High Minimal refers to a single minor problem. Example: Poor sleep due to noise in the hospital room. Low refers to two minor problems, or one stable/uncomplicated illness. Examples: Major depression in remission; adjustment disorder with depressed mood. Moderate refers to one illness with new onset, progression, exacerbation, complication, or side effects; or two stable problems. Examples: Recurrent major depression with exacerbation or progression or side effects of treatment; stable schizophrenia and alcohol use disorder; acute alcohol withdrawal; anorexia with systemic symptoms such as bradycardia. High refers to one chronic problem with severe progression, exacerbation, or side effects; or one problem with threat to life or bodily function. Examples: any psychiatric illness with suicidal or homicidal ideation or thoughts of self- harm; delirium; any eating disorder with severe medical consequences; major depression with significant functional decline; any severe side effects of psychiatric interventions (NMS, hyponatremia, lithium toxicity syndrome, etc); any psychiatric illness meeting the severe specifier. 2. Data Review/Analysis (check one): Moderate Low refers to (1) review of notes and test results or (2) assessment from a collateral source. Moderate requires one of the following: All three of the following: review of notes, review of test results, assessment from a collateral source. Discussion of test interpretation or management with an external physician/provider (primary team included). High requires both of the following (same options from Moderate above): All three of the following: review of notes, review of test results, assessment from a collateral source. Discussion of test interpretation or management with an external physician/provider (primary team included). 3. Patient Risk (check one): High Minimal refers to minimal risk from additional testing/treatment. Example: Bereavement. No medications recommended. Low refers to low risk from additional testing/treatment. Example: only interventions are minimallyinvasive or otherwise low risk (serum labs, melatonin, continuing an SSRI). Moderate refers to moderate risk from additional testing/treatment. Examples: starting prescriptionmedication with only moderate risk. Moderate also includes diagnosis or treatment significantly limited by social determinants of health such as food/housing insecurity, transportation issues, financial limitations, etc. High refers to high risk from additional testing/treatment. Examples: therapies requiring monitoring of serum level (lithium, valproate), medications with specific identified risks (QTc-prolonging medications in certain patients, SSRIs in patients with risk of bleeding). Discussions of higher levels of psychiatric intervention/care (1:1 sitter, voluntary psychiatric hospitalization, IEA, ECT). Patients who may require medical interventions against their wishes when they lack capacity to refuse those interventions; patients who lack capacity to choose to leave the hospital AMA. Discussion of high risk interventions that may be necessary to ensure safety (parenteral medications for managementof agitation; restraints; security presence). Risk of acute withdrawal. Complexity of MDM Determination: Choose the appropriate level in the first 3 columns based upon what you indicated above. Then 2 outof 3 elements must be met to qualify for the highest appropriate level of complexity. Problems/Diagnosis Data Review/Analysis Patient Risk Complexity of Medical Decision-Making CPT CODE [] Minimal/Low [] Low [] Minimal/Low [] Low 85209 [] Moderate [x] Moderate [] Moderate [] Moderate 37705 [x] High [] High [x] High [x] High 12719 Final Coding Determination: High Associated attestation - Kurtis Owens MD - 06/22/2023 8:57 AM EDT Psychiatry Attending Note I discussed the case with the resident, and saw and evaluated the patient (on 05/23) within 24 hoursof the service described in the resident's note. I reviewed the patient???s history during the visit and I agree with the details as written. My exam confirms the resident's findings. The assessment and plan were formulated in discussion with me and I agree with them as documented. Major issues addressed/discussed: Pt seen for f/u and re-eval. Ongoing SI in context of pain. Cont 1:1 for now due to conditional suicidality (conditional upon pain, which is currently present). Kurtis Owens MD Psychiatry Consultation Pager: [phone] * Plan of Care - Sherrie Connor RN - 05/23/2023 1:42 AM EDT Problem: Adult Inpatient Plan of Care Goal: Plan of Care Review Outcome: Ongoing (Interventions Implemented as Appropriate) Goal: Patient-Specific Goal (Individualized) Outcome: Ongoing (Interventions Implemented as Appropriate) Goal: Absence of Hospital-Acquired Illness or Injury Outcome: Ongoing (Interventions Implemented as Appropriate) Goal: Optimal Comfort and Wellbeing Outcome: Ongoing (Interventions Implemented as Appropriate) Goal: Readiness for Transition of Care Outcome: Ongoing (Interventions Implemented as Appropriate) Problem: Fall Injury Risk Goal: Absence of Fall and Fall-Related Injury Outcome: Ongoing (Interventions Implemented as Appropriate) * Consult Note - Grupo Reeves MD - 05/22/2023 9:52 PM EDT Images from the original note were not included. DERMATOLOGY - INPATIENT CONSULT NOTE Dermatology Resident: Grupo Reeves MD Place of Service: Inpatient Unit Reason for Consult: We are seeing Ms. Ender Junior at the request of Gucci Miller MD for the evaluation of acute onset rash. I have personally reviewed the available records, interviewed, and examined the patient. History of Present Illness: Ms. Ender Junior is a 67 y.o. female with past medical history of celiac disease, protein C deficiency, PAD, DVTs/PE on warfarin, depression and diabetes who presented with 4 day history of newrash. She reports development of pink raised lesions on her upper and lower extremities one day after receiving a CT with PO and IV contrast. The rash has been progressively worsening, now associatedwith blisters that affected the head, ears, nose, upper and lower extremities, vulvar, and buttock area. The rash itself is painful to touch and moderately pruritic. She denies fevers, chills, visionchanges, eye pain, skin peeling, painful oral or throat ulcers, dyspnea. 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 Past Week ferrous gluconate (Ferate) 324 mg (37.5 mg iron) tablet Take 1 tablet by mouth three times a week (Sun, , Sun). 60 tablet 3 Past Week cholecalciferol, Vitamin D3, 50 mcg (2,000 unit) Capsule Take 1 capsule by mouth daily. 60 capsule 2 05/21/2023 Miscellaneous Medical Supply Misc 1 Units by Other route. 05/21/2023 nystatin (Mycostatin) 100,000 unit/mL Suspension SWISH AND SWALLOW 1 ML BY MOUTH FOUR TIMES A DAY Past Week ferrous gluconate (Ferate) 240 mg (27 mg iron) tablet TAKE ONE TABLET BY MOUTH ON SUNDAY, SUNDAY, SUNDAY Past Week omeprazole (PriLOSEC) 40 mg Capsule, Delayed Release(E.C.) TAKE ONE CAPSULE BY MOUTH AT BEDTIME 05/21/2023 triamcinolone (Kenalog) 0.1 % Cream apply twice daily as needed for dermatitis herpetiformis 30 g magnesium oxide (MAG-OX) 400 mg (241.3 mg magnesium) Tablet 0 05/21/2023 ONETOUCH ULTRA TEST Strip TEST TWO TIMES A DAY 5 05/21/2023 ONE TOUCH DELICA 33 gauge Misc TEST TWO TIMES A DAY 4 05/21/2023 HYDROcodone-acetaminophen (NORCO) 10-325 mg Tablet Take 1 tablet by mouth every 6 hours as needed for Pain. 05/21/2023 at 0630 baclofen (LIORESAL) 10 mg Tablet Take 10 mg by mouth 2 times daily. 05/21/2023 metFORMIN (GLUCOPHAGE) 1,000 mg tablet Take 1,000 mg by mouth 2 times daily (with meals). 05/21/2023 amitriptyline (ELAVIL) 10 mg tablet Take 20 mg by mouth nightly. 05/21/2023 dapsone (ACZONE) 25 mg tablet Take 2 tablets by mouth 2 times daily. 120 tablet 5 05/21/2023 gabapentin (NEURONTIN) 300 mg capsule Take 1,500 mg by mouth daily. Past Month nitrofurantoin (Macrobid) 100 mg capsule TAKE ONE CAPSULE BY MOUTH TWICE A DAY WITH A MEAL/FOOD More than a month clobetasoL (TEMOVATE) 0.05 % Solution Apply to pruritic areas and scalp on a nightly basis as needed 60 mL 3 Unknown diphenoxylate-atropine (LOMOTIL) 2.5-0.025 mg Tablet Take 1 tablet by mouth 4 times daily as needed. More than a month Current Medications: Infusions: Scheduled medications: sodium chloride 0.9 % (flush) 5 mL Intravenous BID amitriptyline 20 mg Oral Nightly baclofen 10 mg Oral BID pantoprazole EC 40 mg Oral Daily sodium chloride 0.9 % (flush) 5 mL Intravenous BID triamcinolone Topical (Top) BID hydrOXYzine 50 mg Oral Nightly acyclovir 500 mg Intravenous Q12H PRN medications: Current Facility-Administered Medications Medication Dose Route Frequency sodium chloride 0.9 % (flush) (BD PosiFlush Normal Saline 0.9) flush 5-20 mL 5- 20 mL Intravenous Q1Min PRN lidocaine (Xylocaine) 1% (10 mg/mL) injection 3 mg 0.3 mL Subcutaneous Once PRN sodium chloride 0.9 % (flush) (BD PosiFlush Normal Saline 0.9) flush 5-20 mL 5- 20 mL Intravenous Q1Min PRN lidocaine (Xylocaine) 1% (10 mg/mL) injection 3 mg 0.3 mL Subcutaneous Once PRN oxyCODONE (Roxicodone) tablet 5 mg 5 mg Oral Q4H PRN Allergies: Allergies Allergen Reactions Azithromycin Shortness Of Breath Adhesive Tape Rash Amoxicillin Nausea Only Promethazine Other (See Comments) Rizatriptan Sertraline Sulfamethoxazole Sulfamethoxazole-Trimethoprim Tramadol Nausea Only Trimethoprim Venlafaxine Wheat Bran Rash Wheat Flour Rash Wheat Germ Oil Rash Wheat Starch Rash Zofran [Ondansetron Hcl] I dont like it Family History: Family History Problem Relation Age of Onset Cancer Mother Cancer Maternal Aunt Diabetes Other Social History and Habits: reports that she has been smoking cigarettes. She has been smoking an average of .5 packs per day. She has never used smokeless tobacco. She reports that she does not drink alcohol and does not use drugs. Laboratory: Reviewed in the chart. Pertinent values include: - Baseline anemia; no leukocytosis (no eosinophilia) or cytopenias - JASON (1.36 from baseline 0.9s) - No transaminitis Imaging: CT C/A/P on 05/17/23 1. Apical predominant semisolid bilateral pulmonary nodules, most consistent with an infectious or inflammatory etiology. Given high risk of malignancy, short-term CT of the chest, possibly in 3 months, can be obtained to ensure stability or resolution. 2. Mild centrilobular emphysema. 3. Hepatic steatosis. 4. Moderate atherosclerotic calcification particularly of the infrarenal abdominal aorta with a minimal luminal diameter of 8 x 11 mm. 5. 15 mm lobulated right thyroid nodule. Per ACR white paper guidelines, follow-up nonemergent ultrasound the thyroid is recommended. 6. Status post left common iliac venous stenting, patent. Review of Systems: Per HPI Physical Exam: Vital Signs: Last Set of Vitals and range of vitals over past 24 hours: Last value Range last 24 hrs Temperature Temp: 36.8 ??C (98.2 ??F) Temp: [36.6 ??C (97.9 ??F)-36.8 ??C (98.2 ??F)] Heart Rate Heart Rate: 94 Heart Rate: [81-105] Blood Pressure BP: 144/71 BP: (122-193)/(57-90) Respiratory Rate Resp: 19 Resp: [12-20] SpO2 SpO2: 95 % SpO2: [95 %-98 %] Examination: - Constitutional: Patient was resting in bed in mild discomfort. - Skin: The following skin areas were examined: scalp, face, conjunctiva, nasal mucosa, oral mucosa, trunk, and extremities, vulva, and buttock. Significant findings of the exam are stated below in the Assessment and Plan. Summary: Ender Junior is a 67 y.o. 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 Findings/Assessment/Plan #. Disseminated zoster v. bullous erythema multiforme vs. dermatitis herpetiformis vs. paraneoplastic pemphigus vs AGEP vs bullous impetigo vs systemic contact dermatitis - polycyclic edematous pink-violaceous plaques on the bilateral forearms and thighs; tense vesicles on an erythematous base on the face (including extension onto nasal mucosa), ears, and bilateral upper extremities; faint purplemacules on the bilateral palms; no evidence of conjunctival, oral, or vulvar mucosal erosions/crusting - Vesicular rash on erythematous base could be suggestive of zoster/herpes simplex. Given acute progression, recommend empiric treatment for disseminated zoster with Rx: IV acyclovir at 10 mg/kg q8h (may need to be renally dosed) - HSV1/2 and VZV PCR collected today; awaiting results - Superficial skin wound culture collected today. Awaiting results - Presence of tense bullae of erythematous base could also be suggestive of other primary dermatologic diseases (e.g., acute exacerbation of dermatitis herpetiformis, bullous impetigo, paraneoplasticpemphigus from possible occult visceral malignancy, systemic allergic contact dermatitis) - Bullous erythema multiforme is possible given facial, mucosal, and distal extremity involvement, though there are no true targetoid lesions on examination - Given raised nature of rash, lack of desquamation, and lack of significant serous/hemorrhagic crusting of mucosal surfaces, severe cutaneous drug reaction such as SJS/TEN unlikely at this time. - AGEP less likely given lack of pustules at this moment - Recommend expedited workup for occult pulmonary neoplasm given recent findings of pulmonary nodules noted on recent CT scan given patient's recent diagnosis of dermatomyositis with TIF-1 gamma antibodies which can be suggestive of an underlying visceral malignancy - Recommend starting ice packs and Rx: triamcinolone 0.01% cream: Apply twice daily to affected areas on the trunk and extremities for symptomatic relief of skin discomfort - Recommend starting Rx: hydroxyzine 50 mg PO qhs for symptomatic relief of skin discomfort - Recommended a skin biopsy. After discussion of potential risks (scarring, bleeding, infection), patient agreed to proceed. - Patient denies known allergies to lidocaine and epinephrine. Procedure: Skin punch biopsy x 3. Locations: Right forearm lesional x 1 and left thigh x 1 for H&E; Right forearm perilesional x 1 for DIF Time of procedure: 18:00 Discussed indications for the procedure and expectations including risks and benefits. Verbal consent obtained. Time out performed. Skin prepped with alcohol. Local anesthesia with 1% xylocaine, 1/100,000 epinephrine. A 4 mm punch biopsy to the level of the subcutis was performed. Specimen submitted to Pathology. Wound closed with monofilament suture. There were no complications; patient tolerated the procedure well. Wound dressed. Post-procedure expectations (including discomfort management), wound care and activity restrictions reviewed. - Follow-up based on pathology results. - Suture removal: 14 days. Wound care for biopsy site(s): (discussed with floor nurse) - Keep the biopsy site(s) covered for 24 hrs. - After 24 hrs, remove band-aid, wash gently with soap and water, pat dry, apply a thin layer of Vaseline, and cover with a clean bandage. - Above wound care should be performed on a daily basis until the sutures are removed. - Sutures to removed from biopsy sites in 10 to 14 days (approx 06/01/23 to 06/05/23); may be done by floor RN, primary team, PCP, or capable family member. Verbal consent was given by patient to obtain and chart the following pictures: Follow-up: Dermatology will continue to follow. Please do not hesitate to contact us if you have any questionsor concerns. Impression and Recommendations discussed with primary on 05/22/2023. Grupo Reeves MD Resident in Dermatology [facility] Pager: [phone] Patient seen and evaluated with staff Field Crew Chief: Doyr Wilson MD Section of Dermatology [facility] Level of Resident Supervision: Direct Supervision (The supervising physician is physically present with the resident and patient). Associated attestation - Dory Wilson MD - 05/25/2023 2:48 PM EDT I directly supervised the resident during this inpatient consult visit. The resident presented the history and physical exam to me. I then saw and examined this patient with the resident. We reviewedthe history and pertinent details and I confirmed the physical exam findings. I agree with the details of the findings and plan of care as documented in the resident physician's note. Dory Wilson MD Staff Physician * Consult Note - Nila Marrero MD - 05/22/2023 7:19 PM EDT Psychiatric Initial Inpatient Consultation Note Time of Consultation: 1999 Information Sources: Patient. Electronic Medical Record. Reason for consultation: I have been asked by attending physician Gucci Miller to see Ender Junior for recommendations regarding the management of capacity to leave AMA in the context of suicidalideation and I have outlined my findings and recommendations in this report. Chief Complaint (in patient's own words): My pain is unreal History of Present Illness, from H&P Ender Benito Junior is a 67 y.o. 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 Patient and her family report that she first developed her current painful,arm-, leg- and mouth-blistering rash 4 days ago, 1 day after drinking contrast and getting IV contrast for a scan to evaluate for gastric cancer due to workup of previous lab results, per her description. Patient endorses worsening pain and pruritus to the rash. On the day she developed the rash, she was nauseous and vomited multiple times. Last night she noticed blisters in her mouth and nose. She endorses blisters in her genital area that she sees when she goes to the bathroom. In the past two hours she has grown hoarse, which is new for her. Patient endorses feeling bloated, which has beenpresent over a week. She reports pain with urination. Her urine has been more foamy recently. Varsha ral weeks ago she switched to pregabalin from gabapentin; patient has been switching from warfarin to eliquis in the past month, no unusual use or extra doses of blood thinners. Before visiting this hospital, patient went to the ED in [place], and in [facility] in the past 2 days. Patient received steroids at previous hospitals and was discharged with presumed diagnosis of erythema multiforme. She was told to present to this hospital ED by her primary care doctor after developing mucosal blisters. Patient has a history of celiac, so she avoids all wheat product, no diet changes recently.Per chart review, patient tested positive for [id number] antibody on myositis panel 2 months ago, during work-up of a separate full-body rash. Safety : Per primary team, Ender was heard making suicidal statements and endorsed prior suicide attempts to nursing staff. Ender believes she is experiencing depression, but hasn't sought mental health because the resources aren't sufficient. When we initially asked her about current suicidal thoughts,she says, I don't know what to tell you ... what if someone says yes?. Ultimately she says that she has thoughts of not wanting to wake up in the morning, but denies thoughts of harming herself, saying, I just want [this pain] gone. She denies having suicide plan. When asked if she'd hurt herself in the hospital, she says I don't know. When asked if she'd let staff know if she was feeling unsafe, she said I don't know. There is one firearm at home though she can't use it because she's not sure where the bolt is. Capacity: Initially, Ender had let staff members know that she wanted to leave AMA. On interview, she states I don't know when asked if she wants to leave or not. At other points during the interview, she expresses willingness to stay, and alternatively expresses wanting to leave. Her desire to leave/stay is contingent upon her pain control. Ender believes she is in the hospital for pain control of her rash. She is unaware that her rash could potentially be very dangerous if left untreated as the current cause is not fully understood. When asked what would happen if she went home, she says I don't know. When asked the benefits of staying in the hospital, she responds that she's unsure becauseher pain is not under control, saying, what's the point of staying here if they're not going to help me? She acknowledges that her pain / the rash could get worse if she leaves. When asked what shewould do if she went home, she says I don't know. She doesn't trust her provider team as the doctors are the ones that did this. Psychiatric Review of Systems: Did not fully assess, though patient endorses depressed mood and passive wishes. Past Psychiatric History: Diagnoses: - never had formal diagnoses, but feels like she struggles with depression. (Depression listed in chart) Current treatment: - none (but on amitryptiline for pain) Past hospitalizations: - denies Suicide attempts: - In second year of high school, OD on pills due to severe bullying (woke up and found it didn't work, did not receive medical or psychiatric tx) Past psychiatric medications: - Some antidepressant, doesn't remember the name or when Substance Use History/Treatment: - alcohol - none - cigarettes - 10 cigs/day (does not want nicotine replacement tx while in hospital) - marijuana - none - no other substances Problem List: Patient Active Problem List Diagnosis Code Chronic venous insufficiency I87.2 Celiac disease K90.0 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 Protein C deficiency D68.59 Right knee pain M25.561 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 Spinal stenosis of lumbar region M48.061 Intermittent claudication I73.9 Chronic deep vein thrombosis of left femoral vein I82.512 Tobacco dependence F17.200 PAD (peripheral artery disease) I73.9 Anticoagulated on warfarin Z79.01 Bursitis of right shoulder M75.51 Carpal tunnel syndrome of right wrist G56.01 Chronic pain disorder G89.4 Depressive disorder F32.A Diabetes E11.9 Diabetic peripheral neuropathy E11.42 Gastroesophageal reflux disease K21.9 History of pulmonary embolism Z86.711 Hyperlipidemia E78.5 Medial epicondylitis of elbow, left M77.02 Migraine G43.909 Nocturnal leg cramps G47.62 Non-intractable cyclical vomiting with nausea R11.15 Obesity E66.9 Smoker F17.200 Ulnar neuropathy of left upper extremity G56.22 Leg edema, left R60.0 Rash R21 Past Medical/Surgical History: Past Medical History: Diagnosis Date May-Thurner syndrome Past Surgical History: Procedure Laterality Date CHOLECYSTECTOMY, LAPAROSCOPIC 03/18/1992 VASCULAR SURGERY Left 10/01/2009 Balloon angioplasty and stenting of left common iliac vein stenosis VASCULAR SURGERY Left 01/30/2014 Left iliac vein 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 Inpatient Medications: Current Facility-Administered Medications Medication Dose Route Frequency Provider Last Rate Last Admin sodium chloride 0.9 % (flush) (BD PosiFlush Normal Saline 0.9) flush 5 mL 5 mL Intravenous BID Earnestine De La Cruz MD sodium chloride 0.9 % (flush) (BD PosiFlush Normal Saline 0.9) flush 5-20 mL 5- 20 mL Intravenous Q1Min PRN Earnestine De La Cruz MD lidocaine (Xylocaine) 1% (10 mg/mL) injection 3 mg 0.3 mL Subcutaneous Once PRN Earnestine De La Cruz MD amitriptyline (Elavil) tablet 20 mg 20 mg Oral Nightly Earnestine De La Cruz MD baclofen (Lioresal) tablet 10 mg 10 mg Oral BID Earnestine De La Cruz MD pantoprazole EC (Protonix) tablet 40 mg 40 mg Oral Daily Earnestine De La Cruz MD 40 mg at 05/22/23 1730 sodium chloride 0.9 % (flush) (BD PosiFlush Normal Saline 0.9) flush 5 mL 5 mL Intravenous BID Earnestine De La Cruz MD 5 mL at 05/22/23 1730 sodium chloride 0.9 % (flush) (BD PosiFlush Normal Saline 0.9) flush 5-20 mL 5- 20 mL Intravenous Q1Min PRN Earnestine De La Cruz MD lidocaine (Xylocaine) 1% (10 mg/mL) injection 3 mg 0.3 mL Subcutaneous Once PRN Earnestine De La Cruz MD sodium chloride 0.9% infusion 100 mL/hr Intravenous Continuous Earnestine De La Cruz MD 100 mL/hr at 05/22/23 1731 100 mL/hr at 05/22/23 1731 oxyCODONE (Roxicodone) tablet 5 mg 5 mg Oral Q4H PRN Rachel Coppola MD 5 mg at 05/22/23 1723 Pertinent Medical Review of Systems: +severe pain and itching Social History: Lives with , who is disabled. Patient on disability for back pain. 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 House currently facing foreclosure. Daughter lives in the area, who comes to help out every day. Family Medical/Psychiatric History: Sister - paranoid schizophrenia No familial suicide attempts Physical Exam: Last value Range last 24 hrs Temperature Temp: 36.7 ??C (98.1 ??F) Temp: [36.6 ??C (97.9 ??F)-36.7 ??C (98.1 ??F)] Heart Rate Heart Rate: 94 Heart Rate: [81-105] Blood Pressure BP: 144/63 BP: (122-193)/(57-90) Respiratory Rate Resp: 20 Resp: [12-20] SpO2 SpO2: 97 % SpO2: [95 %-98 %] Mental Status Examination: Musculoskeletal System: Muscle Strength/Tone (note atrophy, abnormal movements): no abnormal movements. Gait and Station: did not assess Psychiatric: Appearance: age appropriate and dressed in hospital attire. Appears uncomfortable. Behavior: cooperative with the interview, poor eye contact, and occasionally yelling ow or itching her extremities. Asks questions to be repeated Speech: normal pitch, normal rate, normal rhythm, and soft Language: fluent in samoan Mood: I don't know Affect: dysphoric Thought Process: linear Associations: intact Thought Content: no homicidal ideation ; passive wishes Perception: not observed responding to internal stimuli Orientation: grossly intact by interview Attention/Concentration: somewhat impaired due to her pain distracting her Cognition: grossly intact by interview Memory: recent and remote memory grossly intact Fund of Knowledge: appropriate for age and level of functioning Insight: limited Judgment: limited Pertinent Diagnostic Testing (include your own review/interpretation of results): Last wbc, hgb, hct plt Recent Labs 05/22/23 0553 WBC 9.0 HGB 10.6* HCT 32.5* Last 3 wbc, hgb, hct plt Recent Labs 05/22/23 0553 03/12/23 1156 WBC 9.0 5.6 HGB 10.6* 10.3* HCT 32.5* 33.0* PLATELET 233 173 Last 3 Lytes Recent Labs 05/22/23 0647 05/22/23 0553 05/17/23 1251 NA 128* 126* 136 K 5.1* Not Perf 5.2* CL 95* 94* 98 CO2 22 21* 25 BUN 32* 33* 22* CREATININE 1.33* 1.32* 1.26* Last 3 LFTs Recent Labs 05/22/23 0647 05/22/23 0553 05/17/23 1251 AST 17 Not Perf 15 ALT 20 Not Perf 24 ALKPHOS 127* 134* 142* BILITOT 0.3 0.3 0.3 Last Ca, Mg, Phos Recent Labs 05/22/23 0647 05/22/23 0553 CALCIUM 9.2 9.5 PHOS -- 3.0 MAGNESIUM -- 0.98 Last 3 Coags Recent Labs 05/22/23 0600 PT 61.9* INR 5.5* PTT 42* Last 3 TFT Recent Labs 05/22/23 0553 TSH 2.54 Last 3 HgbA1C Recent Labs 03/12/23 1156 HA1C 4.6 Last CRP, SEDRATE Recent Labs 03/12/23 1156 CRP 3.5 SEDRATE 75* Last 3 CBC Recent Labs 05/22/23 0553 03/12/23 1156 WBC 9.0 5.6 External Record Review (include your own review of external notes from any unique sources): n/a Safety Assessment: Ender's chronic suicide risk is moderate given history of depression and prior suicide attempt. Her current suicide risk is elevated from baseline given worsening of medical condition and depressive symptoms. While Ender is not experiencing active suicidal thoughts, she does have passive wishes and is unable to state she could keep herself safe (at home and here in the hospital). Additionally, I feel she may be at risk to act impulsively given her severe pain that she is experiencing.Given her risk factors and inability to safety plan, recommend continuing 1:1 for patient safety tonight, and re-evaluate when patient is better able to engage in safety planning. Capacity Assessment: Capacity is defined as a person's ability to make an informed decision. The criteria for assessing capacity is defined as below: Express a reliable choice: The patient was unable to state a consistent choice, stating to multiplestaff members she wanted to leave, then to psychiatry stated I don't know when asked if she wanted to leave, then later to psychiatry stated both that she's definitely leaving and that she agrees to stay. Understand: Based on the details as discussed in the HPI, the patient does not have an adequate comprehension of the condition, treatment options, and the risks and benefits of treatment options. Shebelieves she is here for pain control only, not the potential consequences / danger of the actual rash. Appreciate the situation and its consequences: the patient was unable to demonstrate appropriate understanding and appreciation of her current clinical situation and its consequences. She was unable to state what would happen if she went home, including any complications from her rash, which the cause of is not fully understood. Reason: The patient's decision to accept or reject the proposed treatment was voluntary and free ofcoercion, however as related to her lack of understanding of her situation, she did not have realistic expectations about her treatment / going home. While she stated the reason for wanting to leave AMA is due to insufficient pain control, she wants to go home, where her pain control would be even worse (which she doesn't refute when brought up). Additionally she does not trust her doctors as shestates, the doctors are the ones that did this to me. Ender's fluctuations in her wishes and her choice to leave AMA seem to be related, as I believe she wishes to both be and/or leaveAMA as a means of escaping her current despair / painful experience. More likely I believe these methods to be separate methods of escape, though at this time I would still err on the possibility that these are one connected plan (especially since she has been unable to safety plan), in which case her reasoning would be compromised. Based on the aforementioned evaluation, at the time of this assessment, the patient does not have capacity to make the decision to leave AMA. Note: though her cognition was not formally assessed, it seems that Ender's current lack of capacity does not have to do with her cognition but rather has to do with impaired judgement in the context of severe pain, as well as incomplete education about her current condition. Because of this, I believe she will likely regain capacity at some point. Additionally, her fluctuating decision to leave AMA occurs with fluctuations in her pain, so a treatment focus on adequate pain control will likely help her agree to treatment / not want to leave AMA. Diagnoses: likely depressive episode in context of worsening medical condition Plan/Recommendations: Continue 1:1 as patient unable to engage in safety planning Patient lacks capacity to leave AMA tonight (see assessment above) Involve security if patient attempts to leave or becomes physically aggressive towards staff A treatment focus on adequate pain control will help patient agree to treatment / not want to leaveAMA Consult-Liaison (CL) psychiatry service to continue to follow Patient on IEA Status? IEA: NO, patient is not on IEA, but decision making capacity may require reassessment by psychiatry if patient attempts to leave AMA. Recommendations were communicated to primary grocery team member Felipa Smith MD. Nila Marrero MD 05/22/2023 Coding Determination 1. Problems/Diagnosis (check one): High Minimal refers to a single minor problem. Example: Poor sleep due to noise in the hospital room. Low refers to two minor problems, or one stable/uncomplicated illness. Examples: Major depression in remission; adjustment disorder with depressed mood. Moderate refers to one illness with new onset, progression, exacerbation, complication, or side effects; or two stable problems. Examples: Recurrent major depression with exacerbation or progression or side effects of treatment; stable schizophrenia and alcohol use disorder; acute alcohol withdrawal; anorexia with systemic symptoms such as bradycardia. High refers to one chronic problem with severe progression, exacerbation, or side effects; or one problem with threat to life or bodily function. Examples: any psychiatric illness with suicidal or homicidal ideation or thoughts of self- harm; delirium; any eating disorder with severe medical consequences; major depression with significant functional decline; any severe side effects of psychiatric interventions (NMS, hyponatremia, lithium toxicity syndrome, etc); any psychiatric illness meeting the severe specifier. 2. Data Review/Analysis (check one): Moderate Low refers to (1) review of notes and test results or (2) assessment from a collateral source. Moderate requires one of the following: All three of the following: review of notes, review of test results, assessment from a collateral source. Discussion of test interpretation or management with an external physician/provider (primary team included). High requires both of the following (same options from Moderate above): All three of the following: review of notes, review of test results, assessment from a collateral source. Discussion of test interpretation or management with an external physician/provider (primary team included). 3. Patient Risk (check one): High Minimal refers to minimal risk from additional testing/treatment. Example: Bereavement. No medications recommended. Low refers to low risk from additional testing/treatment. Example: only interventions are minimallyinvasive or otherwise low risk (serum labs, melatonin, continuing an SSRI). Moderate refers to moderate risk from additional testing/treatment. Examples: starting prescriptionmedication with only moderate risk. Moderate also includes diagnosis or treatment significantly limited by social determinants of health such as food/housing insecurity, transportation issues, financial limitations, etc. High refers to high risk from additional testing/treatment. Examples: therapies requiring monitoring of serum level (lithium, valproate), medications with specific identified risks (QTc-prolonging medications in certain patients, SSRIs in patients with risk of bleeding). Discussions of higher levels of psychiatric intervention/care (1:1 sitter, voluntary psychiatric hospitalization, IEA, ECT). Patients who may require medical interventions against their wishes when they lack capacity to refuse those interventions; patients who lack capacity to choose to leave the hospital AMA. Discussion of high risk interventions that may be necessary to ensure safety (parenteral medications for managementof agitation; restraints; security presence). Risk of acute withdrawal. Complexity of MDM Determination: Choose the appropriate level in the first 3 columns based upon what you indicated above. Then 2 outof 3 elements must be met to qualify for the highest appropriate level of complexity. Problems/Diagnosis Data Review/Analysis Patient Risk Complexity of Medical Decision-Making CPT CODE [] Minimal - [] Minimal [] Straightforward 03157 [] Low [] Low [] Low [] Low 76284 [] Moderate [x] Moderate [] Moderate [] Moderate 88393 [x] High [] High [x] High [x] High 70542 Final Coding Determination: High Associated attestation - Derik Carlisle MD - 05/23/2023 7:56 AM EDT PSYCHIATRY TEACHING PHYSICIAN INVOLVEMENT Location: Inpatient Unit Attending Physician: Derik Carlisle MD Resident name: Nila Marrero MD I discussed this patient's situation with the resident but did not see the patient. I contributed to the formulation and treatment planning as documented. The assessment and plan were formulated in discussion with me and I agree with them as documented. Major issues addressed/discussed: 67 year-old woman admitted for painful pruritic blistering rash, Psychiatry consulted for capacity to leave AMA and possible suicidal ideation. Overnight, she did not appear to have capacity to leave AMA, for reasons fully outlined below that include inability to co nsistently express a choice and not fully appreciating the risks. Lack of capacity possibly secondary to ongoing pain and may change. Diagnosis: adjustment disorder Plan: -continue 1:1 -requires reassessment if again expressing to leave AMA -continue attempts to adequately control pain; consider pain management consult if available * Plan of Care - Linda Workman RN - 05/22/2023 6:39 PM EDT Transferred to [facility] from ED at 1545. AAO x 4. Pt demanding and verbally abusive towards staff. Ptcalling staff expletives and stating grow a spine and stop being whiny when pt educated on appropriate and respectful behavior towards staff. Pt expressing daily SI with no plan, MD Coppola alerted.Per MD Coppola, no need for sitter and will have psych evaluate in am. Pt expressing 3 episodes of diarrhea in last 24 hours, MD Coppola alerted. Per MD Coppola, will reevaluate in morning if C. Diff testing is needed. At 1700, pt demanding to leave AMA. MD Coppola alerted and at bedside. Gabapentin ordered and administered. PRN Oxy administered. Per MD Coppola, okay to give Oxy and Gabapentin together, see nursing communication. NS @ 100 ml/hr. Derm at bedside in evening, plan for biopsy tonight & see note. VSS on RA. Assessment as filed. Scheduled medications administered. Will continue to monitor and alert MD if any changes. * Initial Assessments - Apryl Corrigan MSW - 05/22/2023 1:36 PM EDT Office of Care Management Initial Assessment PHUONG Olvera reviewed record and discussed patient with Care Team. Source of Information: Team, bedside nurse, medical record, and Patient, Child, Spouse Introduced self/reviewed role; services accepted. 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 (Only good for 180 days) Any patient receiving care in [place] must abide by [place] law. The hierarchy for surrogate decision making is: (a) Patient???s spouse or civil union partner unless there is a divorce proceeding, separation agreement, or restraining order limiting that person???s relationship with the patient. (b) Any adult son or daughter of the patient. (c) Either parent of the patient. (d) Any adult brother or sister of the patient. (e) Any adult grandchild of the patient. (f) Any grandparent of the patient. (g) Any adult aunt, uncle, niece, or nephew of the patient. (h) A close friend of the patient. (i) The agent with financial power of senior trial attorney or a conservator appointed in accordance with RSA 464-A. (j) The guardian of the patient???s estate. Advance Care Planning: Attempt Cardiopulmonary Resuscitation - Inpatient <no information> -Advanced Directive: No, need to discuss Current Coping/Education/Information Needs: Pt is struggling to cope with medical needs Current Functional Ability: Assistive Equipment and Assistive Person Functional Status Prior to Admission: Assistive Equipment and Assistive Person Prior ADLs & IADLs: Assistance Needed with ADLs & IADLs Home Environment: Others in the home: spouse. Current Living Arrangements: home/apartment/condo. Accessibility Concerns:5 stairs into house. All one floor. Resource / Environmental Concerns: Resource/Environmental Concerns: financial Financial Concerns: rent or mortgage, unable to afford, other (see comments) (pt and behindon mortgage. Belive they are not receiving as much finacial assistance as they qualify for. Husbandplans to call.) Home Accessibility Concerns: stairs to enter home Current DME: cane - quad, wheelchair - manual Home Address confirmed as: [address] [place] [id number] Social & Family Supports: All names listed below confirmed with patient as current and correct Extended Emergency Contact Information Primary Emergency Contact: Grupo Junior [facility] Mobile Relation: Spouse Secondary Emergency Contact: Krissy Dong [facility] Mobile Relation: Child Current Care Provided by: spouse/significant other, self Provides Primary Care For: no one Quality of Family relationships: helpful, involved, supportive Community Resources being provided currently: none Behavioral Health History: Pt feeling depressed due to medical needs Substance Use/Abuse listed: Social History Tobacco Use Smoking Status Every Day Packs/day: 0.50 Types: Cigarettes Smokeless Tobacco Never 0 No problems reported 1-2 Low level 3-5 Moderate level 6-8 Substantial level 9- 10 Severe level 0 to 7 points: Low risk 8 to 15 points: Medium risk 16 to 19 points: High risk 20 to 40 points: Addiction likely Health/Prescription Coverage: Primary Insurance: [employer]ED MEDICARE Payor: [facility] MANAGED MEDICARE / Plan: [employer]ED MEDICARE PPO / Product Type: *No Product type* / Secondary Insurance: N/A ONLY if patient has Medicare A&B - Does this patient have secondary insurance?: Yes ; Prescription Coverage: Yes Preferred Pharmacy: [id number] AT [facility] & [address] [id number] [place] Status: Patient is a : No Primary Care Provider confirmed: Renzo Castano, XIMENA [phone] Patient/Caregiver Goals of Treatment: Return home Potential Needs for Transition of Care: unable to assess (pending hospital course) Agency Referrals: Not Applicable, Pending hospital course Transportation: no concerns Transportation Anticipated: family or friend will provide Concerns to be Addressed: adjustment to diagnosis/illness, financial/insurance, coping/stress Assessment: Patient is admitted to Hospital Medicine service for Rash. Met with pt at bedside with her Grupo and daughter Krissy present. Pt lives with her .At baseline, pt requires assistance with walking. She has a cane at home but primarily uses a wheelchair. Pt reports recent increase in some depressive symptoms following medical complication and stressors. Pt and state they are behind on their mortgage but suspect they are not receiving all the benefits they deserve. Pt and plan to call to inquire. Pt is hoping to return home where her will assist her with ADL's, when medically ready. Plan: Pt would like to return home when medically ready. No RNCM/SW needs identified at this time A member of the Care Management team will continue to monitor progress, follow for continuity of care and assist with transition of care planning. Apryl Corrigan ED THRILL PERFORMER Phone: [phone] Pager: [phone] Consult Note - Dorian Broderick MD - 05/22/2023 6:28 AM EDT Consult Note: Was originally paged by ED at [facility]. Primary physician described worsening rash since Sunday that progressively spread from groin to the legs and the rest of the body. Of note, patient is followed outpatient by derm/rheum clinic for dermatomyositis and had CT with IV contrast on 05/17. Patient shortly thereafter developed well-demarcated polycyclic red plaques with skin colored center on bilateral anterior thighs. Primary physician was concerned about Erythema multiforme (EM), however patient lacked morphology consistent with EM due to lack of dusky center. Presentation was more consistent with urticarial reaction following IV contrast. According to primary team, patient went to two [facility] ED's and received systemic corticosteroids and anti-histamines but did not improve over 24hours. Dermatology consult team originally recommended PO corticosteroids and prompt outpatient follow up with dermatology as she was scheduled to see Dr. Rojas on telehealth today. Patient was discharged from ED at [facility] and came to ED at [facility]. Was contacted by Primary physician at [facility] and noted that patient now has developed worsening pain all over her body. Primary physician also noted difficulty breathing. Discussed with dermatology attending and inpatient team is in agreement to do inpatient full skin exam and biopsy sometime this morning. Associated attestation - Lea Beltran MD - 05/22/2023 8:44 AM EDT Discussed case via phone. Patient to be seen by inpatient derm team today for full evaluation. * ED Triage - Gayle Orr RN - 05/22/2023 5:05 AM EDT Pt to ER for worsening rash since Sunday, progressively spreading from arms to rest of body. Pt nowendorses severe pain and itching. States she has CT contrast on and believes she may be allergic. Pt was seen at [facility] yesterday and told to come here if it worsened. Pt now endorses having the rash in her mouth, no tongue swelling or resp distress noted. Rash noted to bilateral arms and bilateral upper legs. documented in this encounter Plan of Treatment Scheduled Referrals Name Type Priority Associated Diagnoses Orde r Schedule Referral to Home Health Outpatient Referral Routine Chronic pain disorder Spinal stenosis of lumbar region, unspecified whether neurogenic claudication present Neurodermatitis Ordered: 05/27/2023 documented as of this encounter Procedures Procedure Name Priority Date/Time Associated Diagnosis Comments HC SODIUM, URINE Routine 05/27/2023 10:1 6 AM EDT HC OSMOLALITY URINE Routine 05/27/2023 1 0:16 AM EDT HEMOGRAM Routine 05/27/2023 5:09 AM EDT DIFFERENTIAL, AUTOMATED Routine 05/27/20 23 5:09 AM EDT HC IRON BINDING CAPACITY Routine 05/27/2023 5:09 AM EDT HC VITAMIN D TOTAL-25 HYDROXY Routine 05/27/2023 5:09 AM EDT HC PARTIAL THROMBOPLASTIN TIME Routine 05/27/2023 5:09 AM EDT HC PROTHROMBIN TIME Routine 05/27/2023 5 :09 AM EDT HC CBC,PLT & AUTO DIFF Routine 5:09 AM EDT HC PHOSPHORUS, SERUM Routine 05/27/2023 5:09 AM EDT OSMOLALITY Routine 05/27/2023 5:09 AM EDT HC MAGNESIUM, SERUM Routine 05/27/2023 5 :09 AM EDT HC HOMOCYSTEINE Routine 05/27/2023 5:09 AM EDT HC FERRITIN, SERUM Routine 05/27/2023 5: 09 AM EDT HC VITAMIN B12 SERUM Routine 05/27/2023 5:09 AM EDT COMPREHENSIVE METABOLIC PANEL (NON-FASTING) Routine 05/27/2023 5:09 AM EDT HEMOGRAM Routine 05/26/2023 4:38 AM EDT DIFFERENTIAL, AUTOMATED Routine 05/26/20 4:38 AM EDT HC PARTIAL THROMBOPLASTIN TIME Routine 05/26/2023 4:38 AM EDT HC PROTHROMBIN TIME Routine 05/26/2023 4 :38 AM EDT FIBRINOGEN Routine 05/26/2023 4:38 AM EDT HC VENIPUNCTURE Routine 05/26/2023 4:38 AM EDT HC PHOSPHORUS, SERUM Routine 05/26/2023 4:38 AM EDT HC MAGNESIUM, SERUM Routine 05/26/2023 4 :38 AM EDT COMPREHENSIVE METABOLIC PANEL (NON-FASTING) Routine 05/26/2023 4:38 AM EDT HC VENIPUNCTURE Routine 05/25/2023 6:52 PM EDT HEMOGRAM Routine 05/25/2023 4:22 AM EDT DIFFERENTIAL, AUTOMATED Routine 05/25/20 4:22 AM EDT HC PARTIAL THROMBOPLASTIN TIME Routine 05/25/2023 4:22 AM EDT HC PROTHROMBIN TIME Routine 05/25/2023 4 :22 AM EDT HC VENIPUNCTURE Routine 05/25/2023 4:22 AM EDT HC PHOSPHORUS, SERUM Routine 05/25/2023 4:22 AM EDT HC MAGNESIUM, SERUM Routine 05/25/2023 4 :22 AM EDT HC CALCIUM, SERUM Routine 05/25/2023 4:2 2 AM EDT EKG 12-LEAD Routine 05/24/2023 6:53 PM EDT Non-intractable cyclical vomiting with nausea XR ABDOMEN FLAT AND UPRIGHT STAT 05/24/2023 4:01 PM EDT POCT GLUCOSE Routine 05/24/2023 11:29 AM EDT HEMOGRAM Routine 05/24/2023 8:21 AM EDT DIFFERENTIAL, AUTOMATED Routine 05/24/20 8:21 AM EDT HC PARTIAL THROMBOPLASTIN TIME Routine 05/24/2023 8:21 AM EDT HC PROTHROMBIN TIME Routine 05/24/2023 8 :21 AM EDT HC CBC,PLT & AUTO DIFF Routine 8:21 AM EDT HC PHOSPHORUS, SERUM Routine 05/24/2023 8:21 AM EDT HC MAGNESIUM, SERUM Routine 05/24/2023 8 :21 AM EDT HC CALCIUM, SERUM Routine 05/24/2023 8:2 1 AM EDT HC PARTIAL THROMBOPLASTIN TIME Routine 05/23/2023 9:01 AM EDT HC PROTHROMBIN TIME Routine 05/23/2023 9 :01 AM EDT HEMOGRAM Routine 05/23/2023 3:46 AM EDT DIFFERENTIAL, AUTOMATED Routine 05/23/20 3:46 AM EDT HC CBC,PLT & AUTO DIFF Routine 3:46 AM EDT HC PHOSPHORUS, SERUM Routine 05/23/2023 3:46 AM EDT HC MAGNESIUM, SERUM Routine 05/23/2023 3 :46 AM EDT COMPREHENSIVE METABOLIC PANEL (NON-FASTING) Routine 05/23/2023 3:46 AM EDT XR ABDOMEN FLAT AND UPRIGHT Routine 05/23/2023 1:44 AM EDT BMP W/FASTING GLUCOSE Routine 05/22/2023 10:06 PM EDT LAVENDER TUBE HOLD Routine 05/22/2023 10 :06 PM EDT HC VENIPUNCTURE STAT 05/22/2023 10:06 PM EDT SPECIMEN TO PATHOLOGY Routine 05/22/2023 7:56 PM EDT SPECIMEN TO PATHOLOGY Routine 05/22/2023 7:56 PM EDT SPECIMEN TO PATHOLOGY Routine 05/22/2023 7:56 PM EDT SURGICAL PATHOLOGY REPORT Routine 05/22/2023 7:54 PM EDT VZV PCR, DERMAL Routine 05/22/2023 3:54 PM EDT HSV 1 AND 2 PCR Routine 05/22/2023 3:54 PM EDT SKIN/SUP WOUND CULTURE Routine 3:54 PM EDT URINALYSIS MICROSCOPIC EXAM STAT 05/22/2023 7:46 AM EDT ELECTROLYTES, URINE, RANDOM STAT 05/22/2023 7:46 AM EDT OSMOLALITY, URINE, RANDOM STAT 05/22/2023 7:46 AM EDT CREATININE, URINE, RANDOM STAT 05/22/2023 7:46 AM EDT URINALYSIS WITH REFLEX CULTURE STAT 05/22/2023 7:46 AM EDT RAPID COVID-19 PCR ([facility]) STAT 05/22/2023 7:30 AM EDT HC INFLUENZA A/B & RSV BY PCR STAT 05/22/2023 7:30 AM EDT COMPREHENSIVE METABOLIC PANEL (NON-FASTING) STAT 05/22/2023 6:47 AM EDT EKG 12-LEAD STAT 05/22/2023 6:24 AM EDT BLOOD GAS 2 VENOUS Routine 05/22/2023 6: 10 AM EDT HC BLOOD CULTURE- STAT 05/22/2023 6:0 0 AM EDT HC PARTIAL THROMBOPLASTIN TIME STAT 05/22/2023 6:00 AM EDT HC PROTHROMBIN TIME STAT 05/22/2023 6 :00 AM EDT HC THYROID STIMULATING HORMONE, SERUM STAT 05/22/2023 5:53 AM EDT HEMOGRAM STAT 05/22/2023 5:53 AM EDT DIFFERENTIAL, AUTOMATED STAT 05/22/20 5:53 AM EDT HC CBC,PLT & AUTO DIFF STAT 5:53 AM EDT RHEUMATOID FACTOR, QUANT STAT 05/22/2023 5:53 AM EDT HC PHOSPHORUS, SERUM STAT 05/22/2023 5:53 AM EDT OSMOLALITY STAT 05/22/2023 5:53 AM EDT HC MAGNESIUM, SERUM STAT 05/22/2023 5 :53 AM EDT HC LIPASE STAT 05/22/2023 5:53 AM EDT COMPREHENSIVE METABOLIC PANEL (NON-FASTING) STAT 05/22/2023 5:53 AM EDT documented in this encounter Results * Osmolality, urine, random (05/27/2023 10:16 AM EDT) U Osmolality 213 50 - 1,200 mOsm/kg [facility] Urine 05/27/2023 10:1 6 AM EDT 05/27/2023 10:27 AM EDT Narrative Resulting Agency Comment Spec In Lab Connor Mantilla MD URINE ORDERABLES [facility] [place] [address] * Sodium, urine, random (05/27/2023 10:16 AM EDT) Pathologist [facility] U Sodium 39 mmol/L [facility] Urine 05/27/2023 10:1 6 AM EDT 05/27/2023 10:27 AM EDT Narrative Resulting Agency Comment Spec In Lab Connor Mantilla MD URINE ORDERABLES Performing Organization Address City/[facility]/ZIP Co de Phone Number [facility] [place] [address] * (ABNORMAL) Osmolality (05/27/2023 5:09 AM EDT) [facility] Osmolality 271(L) 275 - 295 mOsm/kg [facility] Blood Venous Draw / Unknown 05/27/2023 5:09 AM EDT 05/27/2023 5:43 AM EDT Narrative Resulting Agency Comment Spec In Lab Connor Mantilla MD CHEMISTRY ORDERABLE S [facility] [place] [address] * Differential, Automated (05/27/2023 5:09 AM EDT) [facility] Neutrophils % 66.9 % [facility] Neutr Abs (ANC) 4.14 1.70 - 6.10 x10(3)/[facility] Lymphocytes % 21.0 % [facility] Lymphocytes Abs 1.3 0.9 - 3.2 x10(3)/[facility] Monocytes % 8.7 % [facility] Monocyte Abs 0.5 0.3 - 0.9 x10(3)/[facility] Eosinophils % 2.6 % [facility] Eosinophils Abs 0.2 0.0 - 0.4 x10(3)/[facility] Basophils % 0.2 % [facility] Basophils Abs 0.0 0.0 - 0.1 x10(3)/[facility] Immature Gran % 0.60 % [facility] Comment: Immature granulocytes(IG's)percentage and absolute count will include metamyelocytes, myelocytes, and promyelocytes. Blood smears from CBCs yielding IG's will be scanned manually for concordance. If this scan disagrees with the automated IG or if promyelocytes are noted, a manual differential will be performed. Abby Gran Abs 0.04 0.00 - 0.04 x10(3)/[facility] Blood 05/27/2023 5:09 AM EDT 05/27/2023 5:40 AM EDT Narrative Resulting Agency Comment Spec In Lab Earnestine De La Cruz MD HEMATOLOGY ORDERABLE S [facility] [place] [address] * (ABNORMAL) Hemogram (05/27/2023 5:09 AM EDT) WBC 6.2 4.0 - 9.5 x10(3)/[facility] RBC 3.40(L) 4.00 - 5.21 x10(6)/[facility] Hemoglobin 10.3(L) 11.7 - 15.5 g/dL [facility] Hematocrit 30.4(L) 35.7 - 45.8 % [facility] MCV 89.4 82.6 - 94.4 fL [facility] MCH 30.3 27.1 - 32.0 pg [facility] MCHC 33.9 31.7 - 35.0 g/dL [facility] Platelets 197 145 - 357 x10(3)/[facility] RDWSD 47.6(H) 37.0 - 46.0 fL [facility] RDWCV 14.6(H) 11.5 - 14.1 % [facility] MPV 9.3 7.6 - 12.9 fL [facility] nRBC % Auto 0.0 % [facility] nRBC Abs Auto 0.000 0.000 - 0.000 x10(3)/[facility] Blood 05/27/2023 5:09 AM EDT 05/27/2023 5:40 AM EDT Narrative Resulting Agency Comment Spec In Lab Earnestine De La Cruz MD HEMATOLOGY ORDERABLE S [facility] [place] [address] * (ABNORMAL) Comprehensive metabolic panel (non-fasting) (05/27/2023 5:09 AM EDT) Glucose Lvl 150 65 - 199 mg/dL [facility] Comment:Diabetes: >=200 mg/d L plus symptoms BUN 11 8 - 18 mg/dL [facility] Creatinine 0.89 0.70 - 1.20 mg/dL [facility] Sodium 127(L) 135 - 145 mmol/L [facility] Potassium 4.3 3.5 - 5.0 mmol/L [facility] Comment: Please note: ??Patients with WBC >100,000 may have falsely elevated Potassium levels. ??For accurate Potassium quantification in these patients send serum separator tube (gold top) for subsequent determinations. ??Contact the Clinical Chemistry Laboratory if there are any questions. Chloride 94(L) 98 - 107 mmol/L [facility] CO2 21(L) 22 - 31 mmol/L [facility] Anion Gap 12 5 - 15 mmol/L [facility] Calcium 9.4 8.5 - 10.5 mg/dL [facility] Total Protein 6.9 6.1 - 8.0 g/dL [facility] Albumin 3.8 3.2 - 5.2 g/dL [facility] AST 16 0 - 30 unit/L [facility] ALT 22 0 - 30 unit/L [facility] Alk Phos 125(H) 35 - 105 unit/L [facility] Total Bilirubin 0.6 0.2 - 1.3 mg/dL [facility] Estimated GFR 71 >=60 mL/min/1. 73 m?? [facility] Comment: This patient's estimated GFR [...] In Lab Henrique Land MD CHEMISTRY ORDERABLES [facility] [place] [address] * (ABNORMAL) Prothrombin Time (05/27/2023 5:09 AM EDT) PT 40.3(H) 9.4 - 12.5 sec [facility] INR 3.6 [facility] Comment: An INR <2.0 [...] be appropriate depending on clinical circumstances. Blood 05/27/2023 5:09 AM EDT 05/27/2023 5:40 AM EDT Narrative Resulting Agency Comment Spec In Lab Gucci Miller MD HEMATOLOGY ORDERABLE S [facility] [place] [address] * (ABNORMAL) APTT (05/27/2023 5:09 AM EDT) PTT 52(H) 25 - 37 sec [facility] Comment: The PTT is NOT appropriate for heparin monitoring. Use the Anti-Xa level for heparin monitoring (HEP UFH) or LMWH monitoring (HEP LMW). A PTT less than 37 seconds generally indicates adequate hemostasis. Blood 05/27/2023 5:09 AM EDT 05/27/2023 5:40 AM EDT Narrative Resulting Agency Comment Spec In Lab Gucci Miller MD HEMATOLOGY ORDERABLE S Performing Organization Address City/[facility]/ZIP Co de Phone Number [facility] [place] [address] * Phosphorus (05/27/2023 5:09 AM EDT) Phosphorus 2.9 2.5 - 4.5 mg/dL [facility] Blood 05/27/2023 5:09 AM EDT 05/27/2023 5:40 AM EDT Narrative Resulting Agency Comment Spec In Lab Gucci Miller MD CHEMISTRY ORDERABLES Performing Organization Address City/[facility]/ZIP Co de Phone Number [facility] [place] [address] * Magnesium (05/27/2023 5:09 AM EDT) Magnesium 0.82 0.69 - 1.07 mmol/L [facility] Blood 05/27/2023 5:09 AM EDT 05/27/2023 5:40 AM EDT Narrative Resulting Agency Comment Spec In Lab Gucci Miller MD CHEMISTRY ORDERABLES [facility] [place] [address] * (ABNORMAL) Homocysteine Total, Plasma (05/27/2023 5:09 AM EDT) Homocyst Tot 25(H) <=15 mcmol/L [facility] Blood 05/27/2023 5:09 AM EDT 05/27/2023 5:40 AM EDT Narrative Resulting Agency Comment Spec In Lab Connor Mantilla MD CHEMISTRY ORDERABLE S [facility] [place] [address] * Vitamin B12 (05/27/2023 5:09 AM EDT) Pathologist [facility] [place] Vitamin B-12 271 232 - 1,245 pg/mL [facility] Blood 05/27/2023 5:09 AM EDT 05/27/2023 5:40 AM EDT Narrative Resulting Agency Comment Spec In Lab Connor Mantilla MD CHEMISTRY ORDERABLE S [facility] [place] [address] * Vitamin D, 25-Hydroxy (05/27/2023 5:09 AM EDT) 25-OH Vit D Total 28 21 - 100 ng/mL [facility] 25-OH Vit D Interp Insufficient [facility] Blood 05/27/2023 5:09 AM EDT 05/27/2023 5:40 AM EDT Narrative Resulting Agency Comment Spec In Lab Connro Mantilla MD CHEMISTRY ORDERABLE S [facility] [place] [address] * Iron and TIBC (05/27/2023 5:09 AM EDT) Iron 142 30 - 150 mcg/dL [facility] TIBC 341 250 - 450 mcg/dL [facility] Iron Saturation 42 20 - 50 % [facility] Blood 05/27/2023 5:09 AM EDT 05/27/2023 5:40 AM EDT Narrative Resulting Agency Comment Spec In Lab Connor Mantilla MD CHEMISTRY ORDERABLE S Performing Organization Address City/[facility]/ZIP Co de Phone Number [facility] [place] [address] * Ferritin (05/27/2023 5:09 AM EDT) [facility] Ferritin 106 30 - 400 ng/mL [facility] Comment: Pediatric reference ranges not verified at [facility], interpret with caution. Reference ranges for females greater than 50 years of age approach values for men, i.e., 30-400 ng/mL. Blood 05/27/2023 5:09 AM EDT 05/27/2023 5:40 AM EDT Narrative Resulting Agency Comment Spec In Lab Connor Mantilla MD CHEMISTRY ORDERABLE S Performing Organization Address [facility] Co de Phone Number [facility] [place] [address] * (ABNORMAL) Fibrinogen (05/26/2023 4:38 AM EDT) [facility] Fibrinogen 394(H) 200 - 393 mg/dL [facility] Comment: A fibrinogen level >100 mg/dL is adequate for hemostasis in most patients without underlying bleeding disorders. Blood Venous Draw / Unknown 05/26/2023 4:38 AM EDT 05/26/2023 4:48 AM EDT Narrative Resulting Agency Comment Spec In Lab Connor Mantilla MD HEMATOLOGY ORDERABL ES Performing Organization Address [facility]/ZIP Co de Phone Number [facility] [place] [address] * Differential, Automated (05/26/2023 4:38 AM EDT) Neutrophils % 71.0 % [facility] Neutr Abs (ANC) 4.74 1.70 - 6.10 x10(3)/[facility] Lymphocytes % 19.7 % [facility] Lymphocytes Abs 1.3 0.9 - 3.2 x10(3)/[facility] Monocytes % 6.2 % [facility] Monocyte Abs 0.4 0.3 - 0.9 x10(3)/[facility] Eosinophils % 2.3 % [facility] Eosinophils Abs 0.2 0.0 - 0.4 x10(3)/[facility] Basophils % 0.2 % [facility] Basophils Abs 0.0 0.0 - 0.1 x10(3)/[facility] Immature Gran % 0.60 % [facility] Comment: Immature granulocytes(IG's)percentage and absolute count will include metamyelocytes, myelocytes, and promyelocytes. Blood smears from CBCs yielding IG's will be scanned manually for concordance. If this scan disagrees with the automated IG or if promyelocytes are noted, a manual differential will be performed. Abby Gran Abs 0.04 0.00 - 0.04 x10(3)/[facility] Blood 05/26/2023 4:38 AM EDT 05/26/2023 4:48 AM EDT Narrative Resulting Agency Comment Spec In Lab Earnestine De La Cruz MD HEMATOLOGY ORDERABLE S [facility] [place] [address] * (ABNORMAL) Hemogram (05/26/2023 4:38 AM EDT) WBC 6.7 4.0 - 9.5 x10(3)/[facility] RBC 3.45(L) 4.00 - 5.21 x10(6)/[facility] Hemoglobin 10.6(L) 11.7 - 15.5 g/dL [facility] Hematocrit 31.0(L) 35.7 - 45.8 % [facility] MCV 89.9 82.6 - 94.4 [facility] MCH 30.7 27.1 - 32.0 pg [facility] MCHC 34.2 31.7 - 35.0 g/dL [facility] Platelets 189 145 - 357 x10(3)/[facility] RDWSD 47.8(H) 37.0 - 46.0 [facility] RDWCV 14.5(H) 11.5 - 14.1 % [facility] MPV 9.2 7.6 - 12.9 [facility] nRBC % Auto 0.0 % [facility] nRBC Abs Auto 0.000 0.000 - 0.000 x10(3)/[facility] Blood 05/26/2023 4:38 AM EDT 05/26/2023 4:48 AM EDT Narrative Resulting Agency Comment Spec In Lab Earnestine De La Cruz MD HEMATOLOGY ORDERABLE S Performing Organization Address City/State/[facility] Co de Phone Number [facility] [place] [address] * (ABNORMAL) Comprehensive metabolic panel (non-fasting) (05/26/2023 4:38 AM EDT) Glucose Lvl 137 65 - 199 mg/dL [facility] Comment:Diabetes: >=200 mg/d L plus symptoms BUN 13 8 - 18 mg/dL [facility] Creatinine 0.91 0.70 - 1.20 mg/dL [facility] Sodium 130(L) 135 - 145 mmol/L [facility] Potassium 4.5 3.5 - 5.0 mmol/L [facility] Comment: Please note: ??Patients with WBC >100,000 may have falsely elevated Potassium levels. ??For accurate Potassium quantification in these patients send serum separator tube (gold top) for subsequent determinations. ??Contact the Clinical Chemistry Laboratory if there are any questions. Chloride 94(L) 98 - 107 mmol/L [facility] CO2 23 22 - 31 mmol/L [facility] Anion Gap 13 5 - 15 mmol/L [facility] Calcium 9.4 8.5 - 10.5 mg/dL [facility] Total Protein 7.1 6.1 - 8.0 g/dL [facility] Albumin 3.8 3.2 - 5.2 g/dL [facility] AST 20 0 - 30 unit/L [facility] ALT 24 0 - 30 unit/L [facility] Alk Phos 125(H) 35 - 105 unit/L [facility] Total Bilirubin 0.5 0.2 - 1.3 mg/dL [facility] Estimated GFR 70 >=60 mL/min/1. 73 m?? [facility] Comment: This patient's estimated GFR [...] and symptoms in addition to eGFR. Blood 05/26/2023 4:38 AM EDT 05/26/2023 4:48 AM EDT Narrative Resulting Agency Comment Spec In Lab Henrique Land MD CHEMISTRY ORDERABLES [facility] [place] [address] * (ABNORMAL) Prothrombin Time (05/26/2023 4:38 AM EDT) PT 72.5(H) 9.4 - 12.5 sec [facility] INR 6.6(Criti justin) [facility] Comment: Critical Result called by ?? [facility] Results read back by: ? KATHRYN BRIGHT at 2023-05-26 05:14:57 An INR <2.0 indicates adequate procoagulant activity for hemostasis in most patients without underlying bleeding disorders, though the INR may not adequately reflect hemostatic capacity in patients with liver disease and synthetic impairment. The recommended target INR range for therapeutic anticoagulation is 2.0 ? 3.0 for most applications, though lower and higher ranges may be appropriate depending on clinical circumstances. Blood 05/26/2023 4:38 AM EDT 05/26/2023 4:48 AM EDT Narrative Resulting Agency Comment Spec In Lab Gucci Miller MD HEMATOLOGY ORDERABLE S Performing Organization Address City/[facility]/ZIP Co de Phone Number [facility] [place] [address] * (ABNORMAL) APTT (05/26/2023 4:38 AM EDT) Pathologist [facility] [place] PTT 53(H) 25 - 37 sec [facility] Comment: The PTT is NOT appropriate for heparin monitoring. Use the Anti-Xa level for heparin monitoring (HEP UFH) or LMWH monitoring (HEP LMW). A PTT less than 37 seconds generally indicates adequate hemostasis. Blood 05/26/2023 4:38 AM EDT 05/26/2023 4:48 AM EDT Narrative Resulting Agency Comment Spec In Lab Gucci Miller MD HEMATOLOGY ORDERABLE S [facility] [place] [address] * Phosphorus (05/26/2023 4:38 AM EDT) Pathologist [facility] [place] Phosphorus 3.1 2.5 - 4.5 mg/dL [facility] Blood 05/26/2023 4:38 AM EDT 05/26/2023 4:48 AM EDT Narrative Resulting Agency Comment Spec In Lab Gucci Miller MD CHEMISTRY ORDERABLES Performing Organization Address City/[facility]/ZIP Co de Phone Number [facility] [place] [address] * Magnesium (05/26/2023 4:38 AM EDT) Magnesium 0.70 0.69 - 1.07 mmol/L [facility] Blood 05/26/2023 4:38 AM EDT 05/26/2023 4:48 AM EDT Narrative Resulting Agency Comment Spec In Lab Gucci Miller MD CHEMISTRY ORDERABLES Performing Organization Address [facility] Co de Phone Number [facility] [place] [address] * (ABNORMAL) Comprehensive metabolic panel (non-fasting) (05/25/2023 6:52 PM EDT) Glucose Lvl 123 65 - 199 mg/dL [facility] Comment:Diabetes: >=200 mg/d L plus symptoms BUN 13 8 - 18 mg/dL [facility] Creatinine 0.85 0.70 - 1.20 mg/dL [facility] Sodium 130(L) 135 - 145 mmol/L [facility] Potassium 4.3 3.5 - 5.0 mmol/L [facility] Comment: Please note: ??Patients with WBC >100,000 may have falsely elevated Potassium levels. ??For accurate Potassium quantification in these patients send serum separator tube (gold top) for subsequent determinations. ??Contact the Clinical Chemistry Laboratory if there are any questions. Chloride 96(L) 98 - 107 mmol/L [facility] CO2 19(L) 22 - 31 mmol/L [facility] Anion Gap 15 5 - 15 mmol/L [facility] Calcium 9.2 8.5 - 10.5 mg/dL [facility] Total Protein 6.8 6.1 - 8.0 g/dL [facility] Albumin 3.5 3.2 - 5.2 g/dL [facility] AST 19 0 - 30 unit/L [facility] ALT 21 0 - 30 unit/L [facility] Alk Phos 120(H) 35 - 105 unit/L [facility] Total Bilirubin 0.4 0.2 - 1.3 mg/dL [facility] Estimated GFR 76 >=60 mL/min/1. 73 m?? [facility] Comment: This patient's estimated GFR [...] and symptoms in addition to eGFR. Blood 05/25/2023 6:52 PM EDT 05/25/2023 7:07 PM EDT Narrative Resulting Agency Comment Spec In Lab Henrique Land MD CHEMISTRY ORDERABLES [facility] [place] [address] * Differential, Automated (05/25/2023 4:22 AM EDT) Neutrophils % 68.5 % [facility] Neutr Abs (ANC) 3.39 1.70 - 6.10 x10(3)/[facility] Lymphocytes % 23.4 % [facility] Lymphocytes Abs 1.2 0.9 - 3.2 x10(3)/[facility] Monocytes % 5.7 % [facility] Monocyte Abs 0.3 0.3 - 0.9 x10(3)/[facility] Eosinophils % 1.8 % [facility] Eosinophils Abs 0.1 0.0 - 0.4 x10(3)/[facility] Basophils % 0.2 % [facility] Basophils Abs 0.0 0.0 - 0.1 x10(3)/[facility] Immature Gran % 0.40 % [facility] Comment: Immature granulocytes(IG's)percentage and absolute count will include metamyelocytes, myelocytes, and promyelocytes. Blood smears from CBCs yielding IG's will be scanned manually for concordance. If this scan disagrees with the automated IG or if promyelocytes are noted, a manual differential will be performed. Abby Gran Abs 0.02 0.00 - 0.04 x10(3)/[facility] Blood 05/25/2023 4:22 AM EDT 05/25/2023 5:23 AM EDT Narrative Resulting Agency Comment Spec In Lab Earnestine De La Cruz MD HEMATOLOGY ORDERABLE S [facility] [place] [address] * (ABNORMAL) Hemogram (05/25/2023 4:22 AM EDT) WBC 5.0 4.0 - 9.5 x10(3)/[facility] RBC 3.10(L) 4.00 - 5.21 x10(6)/[facility] Hemoglobin 9.3(L) 11.7 - 15.5 g/dL [facility] [place] Hematocrit 28.0(L) 35.7 - 45.8 % [facility] MCV 90.3 82.6 - 94.4 fL [facility] [place] MCH 30.0 27.1 - 32.0 pg [facility] MCHC 33.2 31.7 - 35.0 g/dL [facility] Platelets 159 145 - 357 x10(3)/[facility] RDWSD 47.5(H) 37.0 - 46.0 [facility] RDWCV 14.4(H) 11.5 - 14.1 % [facility] MPV 10.0 7.6 - 12.9 fL [facility] nRBC % Auto 0.0 % [facility] nRBC Abs Auto 0.000 0.000 - 0.000 x10(3)/[facility] Blood 05/25/2023 4:22 AM EDT 05/25/2023 5:23 AM EDT Narrative Resulting Agency Comment Spec In Lab Earnestine De La Cruz MD HEMATOLOGY ORDERABLE S [facility] [place] [address] * (ABNORMAL) Prothrombin Time (05/25/2023 4:22 AM EDT) PT 63.6(H) 9.4 - 12.5 sec [facility] INR 5.8(Criti justin) [facility] Comment: Critical Result called by ?? [facility] Results read back by: ? MARYELLEN NELSON at 2023-05-25 06:04:57 An INR <2.0 indicates adequate procoagulant activity for hemostasis in most patients without underlying bleeding disorders, though the INR may not adequately reflect hemostatic capacity in patients with liver disease and synthetic impairment. The recommended target INR range for therapeutic anticoagulation is 2.0 ? 3.0 for most applications, though lower and higher ranges may be appropriate depending on clinical circumstances. Blood 05/25/2023 4:22 AM EDT 05/25/2023 5:23 AM EDT Narrative Resulting Agency Comment Spec In Lab Gucci Miller MD HEMATOLOGY ORDERABLE S [facility] [place] [address] * (ABNORMAL) APTT (05/25/2023 4:22 AM EDT) PTT 48(H) 25 - 37 sec [facility] Comment: The PTT is NOT appropriate for heparin monitoring. Use the Anti-Xa level for heparin monitoring (HEP UFH) or LMWH monitoring (HEP LMW). A PTT less than 37 seconds generally indicates adequate hemostasis. Blood 05/25/2023 4:22 AM EDT 05/25/2023 5:23 AM EDT Narrative Resulting Agency Comment Spec In Lab Gucci Miller MD HEMATOLOGY ORDERABLE S Performing Organization Address [facility]/ZIP Co de Phone Number [facility] [place] [address] * Phosphorus (05/25/2023 4:22 AM EDT) Phosphorus 2.5 2.5 - 4.5 mg/dL [facility] Blood 05/25/2023 4:22 AM EDT 05/25/2023 5:23 AM EDT Narrative Resulting Agency Comment Spec In Lab Gucci Miller MD CHEMISTRY ORDERABLES Performing Organization Address City/[facility]/ZIP Co de Phone Number [facility] [place] [address] * Magnesium (05/25/2023 4:22 AM EDT) Magnesium 0.73 0.69 - 1.07 mmol/L [facility] Blood 05/25/2023 4:22 AM EDT 05/25/2023 5:23 AM EDT Narrative Resulting Agency Comment Spec In Lab Gucci Miller MD CHEMISTRY ORDERABLES Performing Organization Address City/[facility]/ZIP Co de Phone Number [facility] [place] [address] * Calcium (05/25/2023 4:22 AM EDT) Calcium 8.9 8.5 - 10.5 mg/dL [facility] Blood 05/25/2023 4:22 AM EDT 05/25/2023 5:23 AM EDT Narrative Resulting Agency Comment Spec In Lab Gucci Miller MD CHEMISTRY ORDERABLES Performing Organization Address [facility] Co de Phone Number [facility] [place] [address] * EKG 12 Lead (05/24/2023 6:53 PM EDT) Ventricular rate 92 BPM MUSE SYSTEM Atrial Rate 92 BPM MUSE SYSTEM P-R Interval 152 ms MUSE SYSTEM QRS Duration 78 ms MUSE SYSTEM Q-T Interval 366 ms MUSE SYSTEM QTC Calculated (Bezet) 452 ms MUSE SYSTEM Calculated P [place] 59 degrees MUSE SYSTEM Calculated R [place] -12 degrees MUSE SYSTEM Calculated T [place] 50 degrees MUSE SYSTEM INTERPRETATION Normal sinus rhythm Septal infarct (cited on or before 22-MAY-2023) Abnormal ECG When compared with ECG of 22-MAY-2023 06:24, No significant change was found Confirmed by MD Mili, Sergio Orta ([id number]) on 05/25/2023 10:23:24 AM MUSE SYSTEM 05/24/2023 6:53 PM EDT 05/25/2023 10:23 AM EDT Gucci Miller MD ECG ORDERABLES Performing Organization Address [facility] Co de Phone Number MUSE SYSTEM * XR Abdomen Flat & Upright (05/24/2023 4:01 PM EDT) Anatomical Region Laterality Modality Abdomen N/A Digital Radiogra phy Impressions 05/24/2023 4:32 PM EDT Mildly dilated proximal small bowel loops with continued progression of enteric contrast consistent with ileus or partial obstruction. Thank you for letting us participate in the care of this patient. ??If you are a health care provider and have any questions regarding this report, please contact the number below. ??For patients who have questions please contact the health care director that requested your imaging first. ? Electronically signed by: DAIJA SANTIAGO MD, [facility] ([phone]), at 05/24/2023 4:32 PM Narrative 05/24/2023 4:32 PM EDT EXAMINATION: XR ABDOMEN FLAT AND UPRIGHT CLINICAL HISTORY: new nausea/vomiting, c/f obstruction TECHNIQUE: Supine and upright views of the abdomen COMPARISON: Radiographs 05/23/2023 FINDINGS: Mild gaseous prominence of proximal small bowel measuring up to 4.3 cm. Nondilated colon with residual enteric contrast. The overall pattern is similar to prior. No abnormal mass effect. No pneumoperitoneum or air-fluid levels. The visualized organ contours are normal. Status post cholecystectomy and left common iliac vein stent. The lung bases are clear. Thoracolumbar degenerative disc disease. Procedure Note Daija Santiago MD - 05/24/2023 EXAMINATION: XR ABDOMEN FLAT AND UPRIGHT CLINICAL HISTORY: new nausea/vomiting, c/f obstruction TECHNIQUE: Supine and upright views of the abdomen COMPARISON: Radiographs 05/23/2023 FINDINGS: Mild gaseous prominence of proximal small bowel measuring up to 4.3 cm. Nondilated colon with residual enteric contrast. The overall pattern issimilar to prior. No abnormal mass effect. No pneumoperitoneum or air-fluidlevels. The visualized organ contours are normal. Status post cholecystectomy andleft common iliac vein stent. The lung bases are clear. Thoracolumbardegenerative disc disease. IMPRESSION Mildly dilated proximal small bowel loops with continued progression ofenteric contrast consistent with ileus or partial obstruction. Thank you for letting us participate in the care of this patient. If youare a health care provider and have any questions regarding this report,please contact the number below. For patients who have questions please contactthe health care director that requested your imaging first. Gucci Miller MD IMG DX ORDERABLES * POCT Glucose (05/24/2023 11:29 AM EDT) Pathologist [facility] [place] POC Glucose 180 65 - 199 mg/dL [facility] Comment: Supplemental ranges: <140 mg/dL before meals <180 mg/dL all other times of the day Blood 05/24/2023 11:2 9 AM EDT 05/24/2023 11:29 AM EDT Gucci Miller MD POINT OF CARE TEST O RDERABLES Performing Organization Address City/State/[facility] Co de Phone Number [facility] [place] [address] * (ABNORMAL) Differential, Automated (05/24/2023 8:21 AM EDT) [facility] Neutrophils % 66.5 % [facility] Neutr Abs (ANC) 2.53 1.70 - 6.10 x10(3)/mc L [facility] Lymphocytes % 25.0 % [facility] Lymphocytes Abs 1.0 0.9 - 3.2 x10(3)/mc L [facility] Monocytes % 6.1 % [facility] Monocyte Abs 0.2(L) 0.3 - 0.9 x10(3)/mc L [facility] Eosinophils % 1.8 % [facility] Eosinophils Abs 0.1 0.0 - 0.4 x10(3)/mc L [facility] Basophils % 0.3 % [facility] Basophils Abs 0.0 0.0 - 0.1 x10(3)/mc L [facility] Immature Gran % 0.30 % [facility] Comment: Immature granulocytes(IG's)percentage and absolute count will include metamyelocytes, myelocytes, and promyelocytes. Blood smears from CBCs yielding IG's will be scanned manually for concordance. If this scan disagrees with the automated IG or if promyelocytes are noted, a manual differential will be performed. Abby Gran Abs 0.01 0.00 - 0.04 x10(3)/mc L [facility] Blood 05/24/2023 8:21 AM EDT 05/24/2023 8:39 AM EDT Narrative Resulting Agency Comment Spec In Lab Earnestine De La Cruz MD HEMATOLOGY ORDERABLE S [facility] [place] [address] * (ABNORMAL) Hemogram (05/24/2023 8:21 AM EDT) WBC 3.8(L) 4.0 - 9.5 x10(3)/[facility] LAB[facility] RBC 3.05(L) 4.00 - 5.21 x10(6)/[facility] Hemoglobin 9.2(L) 11.7 - 15.5 g/dL [facility] Hematocrit 27.7(L) 35.7 - 45.8 % [facility] MCV 90.8 82.6 - 94.4 fL [facility] MCH 30.2 27.1 - 32.0 pg [facility] MCHC 33.2 31.7 - 35.0 g/dL [facility] Platelets 164 145 - 357 x10(3)/[facility] RDWSD 49.1(H) 37.0 - 46.0 [facility] RDWCV 14.6(H) 11.5 - 14.1 % [facility] MPV 9.5 7.6 - 12.9 fL [facility] nRBC % Auto 0.0 % [facility] nRBC Abs Auto 0.000 0.000 - 0.000 x10(3)/mcL [facility] Blood 05/24/2023 8:21 AM EDT 05/24/2023 8:39 AM EDT Narrative Resulting Agency Comment Spec In Lab Earnestine De La Cruz MD HEMATOLOGY ORDERABLE S Performing Organization Address [facility] de Phone Number [facility] [place] [address] * (ABNORMAL) Prothrombin Time (05/24/2023 8:21 AM EDT) PT 47.3(H) 9.4 - 12.5 sec [facility] INR 4.3 [facility] Comment: An INR <2.0 [...] be appropriate depending on clinical circumstances. Blood 05/24/2023 8:21 AM EDT 05/24/2023 8:39 AM EDT Narrative Resulting Agency Comment Spec In Lab Gucci Miller MD HEMATOLOGY ORDERABLE S Performing Organization Address [facility] de Phone Number [facility] [place] [address] * (ABNORMAL) APTT (05/24/2023 8:21 AM EDT) PTT 46(H) 25 - 37 sec [facility] Comment: The PTT is NOT appropriate for heparin monitoring. Use the Anti-Xa level for heparin monitoring (HEP UFH) or LMWH monitoring (HEP LMW). A PTT less than 37 seconds generally indicates adequate hemostasis. Blood 05/24/2023 8:21 AM EDT 05/24/2023 8:39 AM EDT Narrative Resulting Agency Comment Spec In Lab Gucci Miller MD HEMATOLOGY ORDERABLE S [facility] [place] [address] * Phosphorus (05/24/2023 8:21 AM EDT) Phosphorus 2.6 2.5 - 4.5 mg/dL [facility] Blood 05/24/2023 8:21 AM EDT 05/24/2023 8:40 AM EDT Narrative Resulting Agency Comment Spec In Lab Gucci Miller MD CHEMISTRY ORDERABLES Performing Organization Address City/[facility]/ZIP Co de Phone Number [facility] [place] [address] * Magnesium (05/24/2023 8:21 AM EDT) Magnesium 0.82 0.69 - 1.07 mmol/L [facility] Blood 05/24/2023 8:21 AM EDT 05/24/2023 8:40 AM EDT Narrative Resulting Agency Comment Spec In Lab Gucci Miller MD CHEMISTRY ORDERABLES Performing Organization Address City/[facility]/ZIP Co de Phone Number [facility] [place] [address] * Calcium (05/24/2023 8:21 AM EDT) Calcium 8.9 8.5 - 10.5 mg/dL [facility] Blood 05/24/2023 8:21 AM EDT 05/24/2023 8:40 AM EDT Narrative Resulting Agency Comment Spec In Lab Gucci Miller MD CHEMISTRY ORDERABLES Performing Organization Address City/[facility]/ZIP Co de Phone Number [facility] [place] [address] * (ABNORMAL) Prothrombin Time (05/23/2023 9:01 AM EDT) PT 34.8(H) 9.4 - 12.5 sec [facility] INR 3.1 [facility] Comment: An INR <2.0 [...] be appropriate depending on clinical circumstances. Blood 05/23/2023 9:01 AM EDT 05/23/2023 9:14 AM EDT Narrative Resulting Agency Comment Spec In Lab Gucci Miller MD HEMATOLOGY ORDERABLE S [facility] [place] [address] * (ABNORMAL) APTT (05/23/2023 9:01 AM EDT) PTT 46(H) 25 - 37 sec [facility] Comment: The PTT is NOT appropriate for heparin monitoring. Use the Anti-Xa level for heparin monitoring (HEP UFH) or LMWH monitoring (HEP LMW). A PTT less than 37 seconds generally indicates adequate hemostasis. Blood 05/23/2023 9:01 AM EDT 05/23/2023 9:14 AM EDT Narrative Resulting Agency Comment Spec In Lab Gucci Miller MD HEMATOLOGY ORDERABLE S [facility] [place] [address] * Differential, Automated (05/23/2023 3:46 AM EDT) Neutrophils % 61.9 % [facility] Neutr Abs (ANC) 2.79 1.70 - 6.10 x10(3)/[facility] Lymphocytes % 28.5 % [facility] Lymphocytes Abs 1.3 0.9 - 3.2 x10(3)/[facility] Monocytes % 7.7 % [facility] Monocyte Abs 0.4 0.3 - 0.9 x10(3)/[facility] Eosinophils % 1.1 % [facility] Eosinophils Abs 0.0 0.0 - 0.4 x10(3)/[facility] Basophils % 0.4 % [facility] Basophils Abs 0.0 0.0 - 0.1 x10(3)/[facility] Immature Gran % 0.40 % [facility] Comment: Immature granulocytes(IG's)percentage and absolute count will include metamyelocytes, myelocytes, and promyelocytes. Blood smears from CBCs yielding IG's will be scanned manually for concordance. If this scan disagrees with the automated IG or if promyelocytes are noted, a manual differential will be performed. Abby Gran Abs 0.02 0.00 - 0.04 x10(3)/[facility] Blood 05/23/2023 3:46 AM EDT 05/23/2023 4:00 AM EDT Narrative Resulting Agency Comment Spec In Lab Earnestine De La Cruz MD HEMATOLOGY ORDERABLE S [facility] [place] [address] * (ABNORMAL) Hemogram (05/23/2023 3:46 AM EDT) WBC 4.5 4.0 - 9.5 x10(3)/[facility] RBC 3.26(L) 4.00 - 5.21 x10(6)/[facility] Hemoglobin 9.9(L) 11.7 - 15.5 g/dL [facility] [place] Hematocrit 31.4(L) 35.7 - 45.8 % [facility] MCV 96.3(H) 82.6 - 94.4 fL [facility] MCH 30.4 27.1 - 32.0 pg [facility] MCHC 31.5(L) 31.7 - 35.0 g/dL [facility] Platelets 188 145 - 357 x10(3)/[facility] LAB[facility] RDWSD 53.2(H) 37.0 - 46.0 [facility] RDWCV 15.1(H) 11.5 - 14.1 % [facility] MPV 9.5 7.6 - 12.9 [facility] nRBC % Auto 0.0 % [facility] nRBC Abs Auto 0.000 0.000 - 0.000 x10(3)/[facility] Blood 05/23/2023 3:46 AM EDT 05/23/2023 4:00 AM EDT Narrative Resulting Agency Comment Spec In Lab Earnestine De La Cruz MD HEMATOLOGY ORDERABLE S [facility] [place] [address] * Phosphorus (05/23/2023 3:46 AM EDT) Phosphorus 2.5 2.5 - 4.5 mg/dL [facility] Blood 05/23/2023 3:46 AM EDT 05/23/2023 4:00 AM EDT Narrative Resulting Agency Comment Spec In Lab Gucci Miller MD CHEMISTRY ORDERABLES [facility] [place] [address] * Magnesium (05/23/2023 3:46 AM EDT) Magnesium 0.92 0.69 - 1.07 mmol/L [facility] Blood 05/23/2023 3:46 AM EDT 05/23/2023 4:00 AM EDT Narrative Resulting Agency Comment Spec In Lab Gucci Miller MD CHEMISTRY ORDERABLES [facility] [place] [address] * (ABNORMAL) Comprehensive metabolic panel (non-fasting) (05/23/2023 3:46 AM EDT) Glucose Lvl 128 65 - 199 mg/dL [facility] Comment:Diabetes: >=200 mg/d L plus symptoms BUN 25(H) 8 - 18 mg/dL [facility] Creatinine 1.11 0.70 - 1.20 mg/dL [facility] Sodium 131(L) 135 - 145 mmol/L [facility] Potassium 5.1(H) 3.5 - 5.0 mmol/L [facility] Comment: Please note: ??Patients with WBC >100,000 may have falsely elevated Potassium levels. ??For accurate Potassium quantification in these patients send serum separator tube (gold top) for subsequent determinations. ??Contact the Clinical Chemistry Laboratory if there are any questions. Chloride 100 98 - 107 mmol/L [facility] CO2 21(L) 22 - 31 mmol/L [facility] Anion Gap 10 5 - 15 mmol/L [facility] Calcium 8.8 8.5 - 10.5 mg/dL [facility] Total Protein 6.5 6.1 - 8.0 g/dL [facility] Albumin 3.2 3.2 - 5.2 g/dL [facility] AST 16 0 - 30 unit/L [facility] ALT 18 0 - 30 unit/L [facility] Alk Phos 114(H) 35 - 105 unit/L [facility] Total Bilirubin 0.3 0.2 - 1.3 mg/dL [facility] Estimated GFR 55(L) >=60 mL/min/1. 73 m?? [facility] Comment: This patient's estimated GFR [...] and symptoms in addition to eGFR. Blood 05/23/2023 3:46 AM EDT 05/23/2023 4:00 AM EDT Narrative Resulting Agency Comment Spec In Lab Gucci Miller MD CHEMISTRY ORDERABLES [facility] [place] [address] * XR Abdomen Flat & Upright (05/23/2023 1:44 AM EDT) Anatomical Region Laterality Modality Abdomen N/A Digital Radiogra phy Impressions 05/23/2023 11:20 AM EDT Bowel gas pattern favored to represent a mild ileus as described. No large fecal load. I have personally reviewed the image(s) and the resident's interpretation and agree with the findings, Latasha Tierney MD at 05/23/2023 11:20 AM Thank you for letting us participate in the care of this patient. ??If you are a health care provider and have any questions regarding this report, please contact the number below. ??For patients who have questions please contact the health care director that requested your imaging first. ? Electronically signed by: Latasha Tierney MD, [facility] ([phone]), at 05/23/2023 11:20 AM Narrative 05/23/2023 11:20 AM EDT EXAMINATION: XR ABDOMEN FLAT AND UPRIGHT CLINICAL HISTORY: Abdominal pain diffuse c/f fecal impaction benign abdominal exam. TECHNIQUE: AP abdominal radiographs supine and upright COMPARISON: CT chest abdomen and pelvis 05/17/2023 FINDINGS: Oral contrast from recent CT is now seen throughout the colon to level the rectum. There are mildly distended air-filled loops of small bowel, for reference measuring up to 3.6 cm in the left lower quadrant. There is mild gaseous distention of the transverse colon measuring up to 7.2 cm. There are scattered air-fluid levels in both small and large bowel loops on the upright views. There is overall a small to moderate stool burden, greatest in the ascending colon, with interval decreased fecal load compared to 05/17/2023 CT. No intraperitoneal free air, portal venous gas, or pneumatosis. Surgical clips from prior cholecystectomy redemonstrated as well as left common iliac venous stent. No visualized acute osseous abnormality. Imaged lung bases appear clear. Procedure Note Latasha Tierney MD - 05/23/2023 EXAMINATION: XR ABDOMEN FLAT AND UPRIGHT CLINICAL HISTORY: Abdominal pain diffuse c/f fecal impaction benignabdominal exam. TECHNIQUE: AP abdominal radiographs supine and upright COMPARISON: CT chest abdomen and pelvis 05/17/2023 FINDINGS: Oral contrast from recent CT is now seen throughout the colon to levelthe rectum. There are mildly distended air-filled loops of small bowel, for reference measuring up to 3.6 cm in the left lower quadrant. There ismild gaseous distention of the transverse colon measuring up to 7.2 cm. Thereare scattered air-fluid levels in both small and large bowel loops on theupright views. There is overall a small to moderate stool burden, greatest inthe ascending colon, with interval decreased fecal load compared to 05/17/2023T. No intraperitoneal free air, portal venous gas, or pneumatosis. Surgicalclips from prior cholecystectomy redemonstrated as well as left common iliac venousstent. No visualized acute osseous abnormality. Imaged lung bases appear clear. IMPRESSION Bowel gas pattern favored to represent a mild ileus as described. No largefecal load. I have personally reviewed the image(s) and the resident's interpretationand agree with the findings, Latasha Tierney MD at 05/23/2023 11:20 AM Thank you for letting us participate in the care of this patient. If youare a health care provider and have any questions regarding this report,please contact the number below. For patients who have questions please contactthe health care director that requested your imaging first. Electronically signed by: Latasha Tierney MD, [facility]([phone]), at 05/23/2023 11:20 AM Gucci Miller MD IMG DX ORDERABLES * Lavender Tube HOLD (05/22/2023 10:06 PM EDT) [facility] Lavender Hold Sample in lab. [facility] Blood Venous Draw / Unknown 05/22/2023 10:06 PM EDT 05/22/2023 10:17 PM EDT Gucci Miller MD HEMATOLOGY ORDERABLE S Performing Organization Address City/State/[facility] Co de Phone Number [facility] [place] [address] * (ABNORMAL) BMP w/fasting Glucose (05/22/2023 10:06 PM EDT) Glucose Fasting 123(H) 65 - 99 mg/dL [facility] Comment: ?Fasting* Glucose Interpretive Criteria Normal ?65-99 mg/dL Impaired Fasting glucose ?100-125 mg/dL Consistent with Diabetes Mellitus ? >or= 126 mg/dL *Fasting is defined as no caloric intake for at least 8 hours In the absence of unequivocal hyperglycemia a plasma glucose value of >or= 126 mg/dL should be repeated on a subsequent day. Diagnosis and Classification of Diabetes Mellitus, Position Statement from the [place] [employer]. ??Diabetes Care, Volume 33, Supplement 1, Aug 2009 BUN 27(H) 8 - 18 mg/dL [facility] Creatinine 1.21(H) 0.70 - 1.20 mg/dL [facility] Sodium 131(L) 135 - 145 mmol/L [facility] Potassium 4.9 3.5 - 5.0 mmol/L [facility] Comment: Please note: ??Patients with WBC >100,000 may have falsely elevated Potassium levels. ??For accurate Potassium quantification in these patients send serum separator tube (gold top) for subsequent determinations. ??Contact the Clinical Chemistry Laboratory if there are any questions. Chloride 101 98 - 107 mmol/L [facility] CO2 20(L) 22 - 31 mmol/L [facility] Anion Gap 10 5 - 15 mmol/L [facility] Calcium 8.6 8.5 - 10.5 mg/dL [facility] Estimated GFR 49(L) >=60 mL/min/1. 73 m?? [facility] Comment: This patient's estimated GFR [...] and symptoms in addition to eGFR. Blood 05/22/2023 10:0 6 PM EDT 05/22/2023 10:17 PM EDT Narrative Resulting Agency Comment Spec In Lab Gucci Miller MD CHEMISTRY ORDERABLES [facility] [place] [address] * Blood culture (05/22/2023 10:06 PM EDT) Blood Culture No growth at 5 days. [facility] Blood 05/22/2023 10:0 6 PM EDT 05/22/2023 10:39 PM EDT Comment:L AC Narrative Resulting Agency Comment Spec In Lab Gucci Miller MD MICROBIOLOGY - BLOOD ORDERABLES Performing Organization Address [facility]/[place] [address] * Specimen to Pathology (05/22/2023 7:56 PM EDT) AP Specimen 05/22/2023 7:56 PM EDT 05/22/2023 7:56 PM EDT Narrative [facility] - 05/22/2023 7:56 PM EDT Specimen requisition ordered. ??Separate Pathology report to follow Dory Wilson MD PATHOLOGY/CYTOLOGY O RDERABLES Performing Organization Address [facility] [place] [address] * Specimen to Pathology (05/22/2023 7:56 PM EDT) AP Specimen 05/22/2023 7:56 PM EDT 05/22/2023 7:56 PM EDT Narrative [facility] - 05/22/2023 7:56 PM EDT Specimen requisition ordered. ??Separate Pathology report to follow Dory Wilson MD PATHOLOGY/CYTOLOGY O RDERASHAAN Performing Organization Address [facility]/[place] [address] * Specimen to Pathology (05/22/2023 7:56 PM EDT) AP Specimen 05/22/2023 7:56 PM EDT 05/22/2023 7:56 PM EDT Narrative [facility] - 05/22/2023 7:56 PM EDT Specimen requisition ordered. ??Separate Pathology report to follow Droy Wilson MD PATHOLOGY/CYTOLOGY O RDERASHAAN Performing Organization Address City/[facility]/ZIP [place] [address] * Surgical Pathology Report (05/22/2023 7:54 PM EDT) FINAL DIAGNOSIS (AP) [id number] ? Location: L1WD; 0108; A The signing pathologist has (i) examined the relevant preparation(s) for the specimen(s) and (ii) rendered or confirmed the diagnosis(es). . ? Addendum ADDENDUM DISCUSSION B. DIF studies show strong granular deposition of IgA along the dermal-epidermal junction with some weak deposition of IgM and IgG. ?No specific immunoreactants detected for C3, albumin, or fibrinogen. A, C. Varicella Zoster immunostains are also examined and are negative. ? The diagnosis assessment remains the same. Electronically signed by: ?Catia SHARIF, Aurelia Verified: ??08/05/2023 21:[address] Performed at: ??-[facility] Dept. of Pathology, [place] [address] Deputy Director Of Nursing: Tish Esparza MD, FCAP, ??CLIA Certificate: [id number] ?Surgical Pathology DIAGNOSIS CORRECTED REPORT (See Discussion) A - Right forearm, skin punch biopsy: - Subepidermal ??blister associated with a dense neutrophil-rich perivascular and interstitial inflammatory infiltrate ?(see discussion) B - Right forearm, skin DIF perilesional, ?punch biopsy: - ??Positive IgA deposition (diffuse and mostly granular) along the ?dermoepidermal junction ??with weak IgM and IgG deposition ?? (see discussion) C - Left thigh, skin punch biopsy: - ??Dense neutrophil-rich perivascular and interstitial inflammatory infiltrate ?(see discussion) Electronically signed by: ?Aurelia Bardales MD Verified: ??07/23/2023 19:[address] Performed at: ??-[facility] Dept. of Pathology, [place] [address] Deputy Director Of Nursing: Tish Esparza MD, FCAP, ??CLIA Certificate: [id number] DISCUSSION Specimen A shows a dense superficial neutrophil-rich inflammatory infiltrate with scattered eosinophils, lymphocytes and histiocytes. There is a prominent dermal- epidermal separation with blister formation. The adjacent epidermis shows foci of neutrophil clusters at the dermal-epidermal junction. Specimen C also shows a dense neutrophil-rich inflammatory infiltrate in the superficial dermis with foci of neutrophils clustering along the dermal-epidermal junction with features suggestive of early papillary dermal microabscess formation. DIF studies show strong granular deposition of IgA along the dermal-epidermal junction with some weak deposition of IgM and IgG. 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 ??The differential diagnosis would also include bullous lupus erythematosus and linear IgA dermatosis. ??Clinicopathologi c correlation is recommended for the distinction. Correction Note: ??The specimen orders on parts B and C were corrected. There are no other changes to the text of this report. _ . ADDITIONAL STUDIES A, C. ??Multiple step-leveled sections are examined. Special stains (PAS/fungus and Gram) are negative. HSV1 and HSV2 are negative. Varicella zoster stain is currently unavailable. Case inflammation was provided to Dr. Grupo Reeves and Dory Wilson via email on 05/24/2023. SPECIMEN(S) SUBMITTED A - right forearm, skin punch(2) B - right forearm, skin DIF perilesional (1) C - left thigh, skin punch (2) CLINICAL INFORMATION A - Lesional H&E of groups of tense vesicles on an erythematous base face, ears and bilateral upper extremities, sample taken from right forearm. DDX: Disseminated zoster vs bullous erythema multiforme vs dermatitis herpetiformis vs paraneoplastic pemphigus vs AGEP vs bullous impetigo vs systemic contact dermatitis B - Perilesional DIF tense vesicles on an erythematous base face, ears and bilateral upper extremities, sample taken from right forearm. DDX: Disseminated zoster vs bullous erythema multiforme vs dermatitis herpetiformis vs paraneoplastic pemphigus vs AGEP vs bullous impetigo vs systemic contact dermatitis C - H&E of polycyclic edematous pink-violaceous plaques on the bilateral forearms and thighs, sample taken from left thigh. DDX: Disseminated zoster vs bullous erythema multiforme vs dermatitis herpetiformis vs paraneoplastic pemphigus vs AGEP vs bullous impetigo vs systemic contact dermatitis SPECIMEN PROCESSING A - Labeled/Fixative: Lesional forearm, formalin. Quantity/Size: ??Single, 0.4 cm. Tissue Description: Punch of pink red skin. Also received are three yellow fibroadipose tissue fragments ranging from 0.1-0.3 cm. Sections/Processin g: Entirely submitted in 2 cassettes as follows: ?A1: ??Skin punch, bisected ?A2: ??Fibroadipose tissue fragments B - Labeled/Fixative: Perilesional right forearm, [place] transport medium. Quantity/Size: ??Single, 0.4 cm. Tissue Description: Punch of pink-white skin. Sections/Processin g: Tissue submitted for immunofluorescence . Bisected and entirely submitted in 1 cassette labeled B1. C - Labeled/Fixative: Left thigh, formalin. Quantity/Size: ??Two, 0.4 cm each. Tissue Description: Punch of pink-white skin with detached adipose tissue fragment. Sections/Processin g: Entirely submitted in 2 cassettes as follows: ?C1: ??Skin punch, bisected ?C2: ??Fibroadipose tissue ??sns 08/05/2023 9:25 PM [facility] SPECIMEN FROM SKIN / Unknown 05/22/2023 7:54 PM EDT 05/22/2023 7:54 PM EDT SPECIMEN FROM SKIN / Unknown 05/22/2023 7:54 PM EDT 05/22/2023 7:54 PM EDT SPECIMEN FROM SKIN / Unknown 05/22/2023 7:54 PM EDT 05/22/2023 7:54 PM EDT Grupo Reeves MD PATHOLOGY/CYTOLOGY O RDERABLES Performing Organization Address City/State/[facility] Co de Phone Number [facility] [place] [address] * HSV 1 and 2 PCR (05/22/2023 3:54 PM EDT) HSV-1 PCR Not Detected Not Detected [facility] HSV-2 PCR Not Detected Not Detected [facility] HSV Source Vesicle [facility] Comment: The only FDA approved specimen types for this assay are CSF and genital lesions. Vesicle Micro Spec / Unknown 05/22/2023 3:54 PM EDT 05/22/2023 4:04 PM EDT Narrative Resulting Agency Comment Spec In Lab Grupo Reeves MD MICROBIOLOGY - GENER AL ORDERABLES Performing Organization Address [facility] Co de Phone Number [facility] [place] [address] * VZV PCR, Dermal (05/22/2023 3:54 PM EDT) VZV PCR Not Detected Not Detected [facility] VZV PCR Source Vesicle [facility] Vesicle Micro Spec / Unknown 05/22/2023 3:54 PM EDT 05/22/2023 4:03 PM EDT Narrative Resulting Agency Comment Spec In Lab Grupo Reeves MD MICROBIOLOGY - GENER AL ORDERABLES Performing Organization Address [facility]/ZIP Co de Phone Number [facility] [place] [address] * Skin/Superficial Wound Culture (05/22/2023 3:54 PM EDT) Skin/Superfic ial Wound Culture No growth [facility] Gram Stain Rare Neutrophils seen No microorganisms seen. [facility] Swab(s) STRUCTURE OF LEFT UPPER LIMB / Unknown 05/22/2023 3:54 PM EDT 05/22/2023 3:54 PM EDT Narrative Resulting Agency Comment Spec In Lab Grupo Reeves MD MICROBIOLOGY - GENER AL ORDERABLES Performing Organization Address City/[facility]/ZIP Co de Phone Number [facility] [place] [address] * Osmolality, urine, random (05/22/2023 7:46 AM EDT) U Osmolality 212 50 - 1,200 mOsm/kg [facility] Urine Urine / Unknown 05/22/2023 7 :46 AM EDT 05/22/2023 1:22 PM EDT Narrative Resulting Agency Comment Spec In Lab Deb Robertson MD URINE ORDERABLES Performing Organization Address [facility] Co de Phone Number [facility] [place] [address] * Electrolytes, urine, random (05/22/2023 7:46 AM EDT) U Sodium 34 mmol/L [facility] U Potassium 17 mmol/L [facility] U Chloride 32 mmol/L [facility] Urine Urine / Unknown 05/22/2023 7 :46 AM EDT 05/22/2023 1:22 PM EDT Narrative Resulting Agency Comment Spec In Lab Deb Robertson MD URINE ORDERABLES Performing Organization Address City/[facility]/ZIP Co de Phone Number [facility] [place] [address] * Creatinine, urine, random (05/22/2023 7:46 AM EDT) U Creatinine 28 mg/dL [facility] Urine Urine / Unknown 05/22/2023 7 :46 AM EDT 05/22/2023 1:21 PM EDT Narrative Resulting Agency Comment Spec In Lab Deb Robertson MD URINE ORDERABLES Performing Organization Address City/[facility]/ZIP Co de Phone Number [facility] [place] [address] * Urinalysis Microscopic Exam (05/22/2023 7:46 AM EDT) RBC UA 0 0 - 4 /HPF [facility] WBC UA 2 0 - 5 /HPF [facility] Squam Epith UA 2 <=4 /HPF [facility] Hyaline Cast UA 2 0 - 2 /LPF [facility] Clean Catch Urine 05/22/2023 7:46 AM EDT 05/22/2023 7:53 AM EDT Narrative Resulting Agency Comment Spec In Lab Jerman Metcalf MD URINE ORDERABLES [facility] [place] [address] * (ABNORMAL) Urinalysis with reflex Culture (05/22/2023 7:46 AM EDT) Glucose UA Negative Negative mg/dL [facility] Protein UA Trace(A) Negative mg/dL [facility] Bilirubin UA Negative Negative mg/dL [facility] Comment: Clinical correlation required for positive Urine Bilirubin results as false positive may occur with some drugs and drug related products. If a false positive is suspected a serum total bilirubin should be considered if clinically indicated. Urobilinogen UA Normal Normal mg/dL [facility] pH UA 5.5 5.0 - 8.0 [facility] Blood UA Negative Negative mg/dL [facility] Ketones UA Negative Negative mg/dL [facility] Nitrite UA Negative Negative [facility] Leukocytes UA Trace(A) Negative [facility] Appearance UA Clear Clear [facility] Spec Mays UA 1.008 1.005 - 1.030 [facility] Color UA Yellow Yellow [facility] Culture Reflexed No [facility] Clean Catch Urine 05/22/2023 7:46 AM EDT 05/22/2023 7:53 AM EDT Narrative Resulting Agency Comment Spec In Lab Jerman Metcalf MD URINE ORDERABLES Performing Organization Address City/[facility]/ZIP Co de Phone Number [facility] [place] [phone] * Rapid Influenza A/B and RSV PCR ([facility]/CGP/APD/[facility]H) (05/22/2023 7:30 AM EDT) [facility] Influenza A PCR Not Detected Not Detected [facility] Influenza B PCR Not Detected Not Detected [facility] RSV PCR Not Detected Not Detected [facility] Resp PCR Source [employer] Swab [facility] Nasopharyngeal Swab 05/22/20 7:30 AM EDT 05/22/2023 8:08 AM EDT Narrative Resulting Agency Comment Spec In Lab Jerman Metcalf MD MICROBIOLOGY - GENER AL ORDERABLES Performing Organization Address [facility] Co de Phone Number [facility] [place] [address] * COVID-19 PCR (05/22/2023 7:30 AM EDT) [facility] SARS-CoV-2 RNA PCR Not Detected Not Detected [facility] Comment: This result should be interpreted in combination with the clinical observations, patient history and epidemiological information. For testing of asymptomatic individuals, assay performance characteristics and clinical utility have not been evaluated. Testing for SARS-CoV-2 (Severe acute respiratory syndrome coronavirus 2, formerly known as 2019 novel coronavirus or 2019-nCoV) to aid in the diagnosis of COVID-19 is performed using the Simplexa COVID-19 Direct Assay by Mobile [employer] as authorized by the FDA issued Emergency Use Authorization (EUA). This assay is intended for In-vitro Diagnostic (IVD) use with nasopharyngeal swabs collected from individuals meeting the CDC criteria for testing. The assay is performed based on the instructions for use and additional guidance provided by the FDA. Testing is performed in the Microbiology Laboratory within the Department of Pathology and Laboratory Medicine at [facility], certified under the Clinical Laboratory Improvement Amendments of 1988 (CLIA), 42 U.S.C. section 263a, to perform high complexity tests. Assay performance has been verified according to clinical laboratory regulatory requirements. Test results are provided above. A result of Not Detected indicates that the viral RNA target is not present but does not preclude SARS-CoV-2 infection. False negative results may occur if a specimen is improperly collected, transported or handled; if amplification inhibitors are present; or if inadequate numbers of viral particles are present in the specimen. A result of Detected suggests a current or recent infection and the patient is presumed to be infected. Positive and negative predictive values for this test are highly dependent on disease prevalence. A result of Invalid indicates the inability to conclusively determine the presence or absence of SARS-CoV-2 RNA in the sample which can be due to a variety of factors. Recollection is recommended in the case of an invalid result. CDC COVID-19 criteria for testing on human specimens and clinical management guidance information are available at the CDC Coronavirus Disease 2019 (COVID-19) webpage under Information for Healthcare Professionals (https://www.cdc.gov/coronavirus/2019-ncov/hcp/index.html). Additional information about this and other EUA tests can be found in provider and patient fact sheets at the following FDA website: https://www.fda.gov/medical-devices/dlxwwvfogtb-oywjhks-1927-dqkdu-68-cpxiksgtk- use-a kzzlnighomrxt-akdavjk-mawubyl/ggwyn-kamthahiqqs-uzov SARS-CoV-2 Source [employer] Swab [place] [facility] Nasopharyngeal Swab 05/22/20 7:30 AM EDT 05/22/2023 8:08 AM EDT Comment:Specimen Source->Keanu opharyngeal Swab Narrative Resulting Agency Comment Spec In Lab Jerman Metcalf MD MICROBIOLOGY - GENER AL ORDERABLES [facility] [place] [address] * (ABNORMAL) Comprehensive metabolic panel (non-fasting) (05/22/2023 6:47 AM EDT) Glucose Lvl 95 65 - 199 mg/dL [facility] Comment:Diabetes: >=200 mg/d L plus symptoms BUN 32(H) 8 - 18 mg/dL [facility] Creatinine 1.33(H) 0.70 - 1.20 mg/dL [facility] Sodium 128(L) 135 - 145 mmol/L [facility] Potassium 5.1(H) 3.5 - 5.0 mmol/L [facility] Comment: Please note: ??Patients with WBC >100,000 may have falsely elevated Potassium levels. ??For accurate Potassium quantification in these patients send serum separator tube (gold top) for subsequent determinations. ??Contact the Clinical Chemistry Laboratory if there are any questions. Chloride 95(L) 98 - 107 mmol/L [facility] CO2 22 22 - 31 mmol/L [facility] Anion Gap 11 5 - 15 mmol/L [facility] Calcium 9.2 8.5 - 10.5 mg/dL [facility] Total Protein 7.3 6.1 - 8.0 g/dL [facility] Albumin 3.9 3.2 - 5.2 g/dL [facility] AST 17 0 - 30 unit/L [facility] ALT 20 0 - 30 unit/L [facility] Alk Phos 127(H) 35 - 105 unit/L [facility] Total Bilirubin 0.3 0.2 - 1.3 mg/dL [facility] Estimated GFR 44(L) >=60 mL/min/1. 73 m?? [facility] Comment: This patient's estimated GFR [...] and symptoms in addition to eGFR. Blood 05/22/2023 6:47 AM EDT 05/22/2023 6:54 AM EDT Narrative Resulting Agency Comment Spec In Lab Jerman Metcalf MD CHEMISTRY ORDERABLES Performing Organization Address [facility] Co de Phone Number [facility] [place] [address] * EKG 12 Lead (05/22/2023 6:24 AM EDT) Ventricular rate 86 BPM MUSE SYSTEM Atrial Rate 86 BPM MUSE SYSTEM P-R Interval 166 ms MUSE SYSTEM QRS Duration 82 ms MUSE SYSTEM Q-T Interval 362 ms MUSE SYSTEM QTC Calculated (Bezet) 433 ms MUSE SYSTEM Calculated P [place] 64 degrees MUSE SYSTEM Calculated R [place] 1 degrees MUSE SYSTEM Calculated T [place] 64 degrees MUSE SYSTEM INTERPRETATION Normal sinus rhythm Septal infarct , age undetermined Abnormal ECG No previous ECGs available I personally reviewed the tracing and edited the fellows interpretation Confirmed by fellow Rudy Lund ([id number]) on 05/22/2023 9:13:23 AM Confirmed by Dov Rich ([id number]) on 05/22/2023 1:36:35 PM MUSE SYSTEM 05/22/2023 6:24 AM EDT 05/22/2023 1:36 PM EDT Jerman Metcalf MD ECG ORDERABLES Performing Organization Address [facility] Co de Phone Number MUSE SYSTEM * (ABNORMAL) BLOOD GAS 2 VENOUS (05/22/2023 6:10 AM EDT) pH Fran 7.34 7.32 - 7.42 [facility] pCO2 Fran 46 41 - 51 mmHg [facility] pO2 Fran 34 25 - 40 mmHg [facility] HCO3 Fran 24.3 mmol/L [facility] BE Fran -1.5 mmol/L [facility] Hgb Blood Gas 10.4(L) 11.7 - 15.5 g/dL [facility] O2HB Fran 58.3 % [facility] COHB Fran 7.3 % [facility] Comment: Nonsmokers: 0.5-1.5% COHB Smokers: Variable, but usually less than 10% Toxic: 20-30% COHB Lethal: Greater than 60% COHB METHB Fran 0.3 <=1.5 % [facility] Na Whole Blood 128(L) 135 - 145 mmol/L [facility] K Whole Blood 5.2(H) 3.5 - 5.0 mmol/L [facility] Comment: Please note: Patients with WBC >100,000 may have falsely elevated Potassium levels. Contact the Clinical Chemistry Laboratory if there are any questions. ICa Whole Blood 1.16 1.15 - 1.33 mmol/L [facility] Comment: Note: ??Total bilirubin higher than 20 mg/dL may lead to falsely low ionized calcium. CL Whole Blood 97(L) 98 - 107 mmol/L [facility] Gluc Whole Bld 96 65 - 199 mg/dL [facility] Comment:Diabetes: >=200 mg/d L plus symptoms Lactate WB 1.8 0.5 - 2.2 mmol/L [facility] BGas Source Venous [facility] Blood 05/22/2023 6:10 AM EDT 05/22/2023 6:10 AM EDT Jerman Metcalf MD CHEMISTRY ORDERABLES Performing Organization Address City/State/[facility] Co de Phone Number [facility] [place] [address] * (ABNORMAL) APTT (05/22/2023 6:00 AM EDT) PTT 42(H) 25 - 37 sec [facility] Comment: The PTT is NOT appropriate for heparin monitoring. Use the Anti-Xa level for heparin monitoring (HEP UFH) or LMWH monitoring (HEP LMW). A PTT less than 37 seconds generally indicates adequate hemostasis. Blood 05/22/2023 6:00 AM EDT 05/22/2023 6:11 AM EDT Narrative Resulting Agency Comment Spec In Lab Jerman Metcalf MD HEMATOLOGY ORDERABLE S Performing Organization Address City/[facility]/ZIP Co de Phone Number [facility] [place] [address] * (ABNORMAL) Prothrombin Time (05/22/2023 6:00 AM EDT) Pathologist [facility] [place] PT 61.9(H) 9.4 - 12.5 sec [facility] INR 5.5(Criti justin) [facility] Comment: Critical Result called by ?? [facility] Results read back by: ? VIRGIE HOLLAND at 2023-05-22 06:31:40 An INR <2.0 indicates adequate procoagulant activity for hemostasis in most patients without underlying bleeding disorders, though the INR may not adequately reflect hemostatic capacity in patients with liver disease and synthetic impairment. The recommended target INR range for therapeutic anticoagulation is 2.0 ? 3.0 for most applications, though lower and higher ranges may be appropriate depending on clinical circumstances. Blood 05/22/2023 6:00 AM EDT 05/22/2023 6:11 AM EDT Narrative Resulting Agency Comment Spec In Lab Jerman Metcalf MD HEMATOLOGY ORDERABLE S Performing Organization Address [facility] Co de Phone Number [facility] [place] [address] * Blood culture (05/22/2023 6:00 AM EDT) [facility] Blood Culture No growth at 5 days. [facility] Blood 05/22/2023 6:00 AM EDT 05/22/2023 7:55 AM EDT Comment:R AC Narrative Resulting Agency Comment Spec In Lab Jerman Metcalf MD MICROBIOLOGY - BLOOD ORDERABLES Performing Organization Address [facility] Co de Phone Number [facility] [place] [address] * Rheumatoid factor, quant (05/22/2023 5:53 AM EDT) RF <10 <=14 IU/mL [facility] Blood Venous Draw / Unknown 05/22/2023 5:53 AM EDT 05/22/2023 6:21 AM EDT Narrative Resulting Agency Comment Spec In Lab Rachel Coppola MD IMMUNOLOGY ORDERABLE S [facility] [place] [address] * Osmolality (05/22/2023 5:53 AM EDT) [facility] Osmolality 279 275 - 295 mOsm/kg [facility] Blood Venous Draw / Unknown 05/22/2023 5:53 AM EDT 05/22/2023 6:03 AM EDT Narrative Resulting Agency Comment Spec In Lab Deb Robertson MD CHEMISTRY ORDERABLES [facility] [place] [address] * (ABNORMAL) Differential, Automated (05/22/2023 5:53 AM EDT) [facility] Neutrophils % 71.7 % [facility] Neutr Abs (ANC) 6.48(H) 1.70 - 6.10 x10(3)/mc L [facility] Lymphocytes % 20.2 % [facility] Lymphocytes Abs 1.8 0.9 - 3.2 x10(3)/mc L [facility] Monocytes % 7.2 % [facility] Monocyte Abs 0.6 0.3 - 0.9 x10(3)/mc L [facility] Eosinophils % 0.2 % [facility] Eosinophils Abs 0.0 0.0 - 0.4 x10(3)/mc L [facility] Basophils % 0.1 % [facility] Basophils Abs 0.0 0.0 - 0.1 x10(3)/mc L [facility] Immature Gran % 0.60 % [facility] Comment: Immature granulocytes(IG's)percentage and absolute count will include metamyelocytes, myelocytes, and promyelocytes. Blood smears from CBCs yielding IG's will be scanned manually for concordance. If this scan disagrees with the automated IG or if promyelocytes are noted, a manual differential will be performed. Abby Gran Abs 0.05(H) 0.00 - 0.04 x10(3)/[facility] Blood 05/22/2023 5:53 AM EDT 05/22/2023 5:59 AM EDT Narrative Resulting Agency Comment Spec In Lab Jerman Metcalf MD HEMATOLOGY ORDERABLE S [facility] [place] [address] * (ABNORMAL) Hemogram (05/22/2023 5:53 AM EDT) WBC 9.0 4.0 - 9.5 x10(3)/[facility] RBC 3.49(L) 4.00 - 5.21 x10(6)/[facility] Hemoglobin 10.6(L) 11.7 - 15.5 g/dL [facility] Hematocrit 32.5(L) 35.7 - 45.8 % [facility] MCV 93.1 82.6 - 94.4 fL [facility] MCH 30.4 27.1 - 32.0 pg [facility] MCHC 32.6 31.7 - 35.0 g/dL [facility] Platelets 233 145 - 357 x10(3)/[facility] LAB[facility] RDWSD 50.7(H) 37.0 - 46.0 fL [facility] RDWCV 14.9(H) 11.5 - 14.1 % [facility] MPV 10.3 7.6 - 12.9 [facility] nRBC % Auto 0.0 % [facility] nRBC Abs Auto 0.000 0.000 - 0.000 x10(3)/mcL [facility] Blood 05/22/2023 5:53 AM EDT 05/22/2023 5:59 AM EDT Narrative Resulting Agency Comment Spec In Lab Jerman Metcalf MD HEMATOLOGY ORDERABLE S Performing Organization Address City/[facility]/ZIP Co de Phone Number [facility] [place] [address] * TSH Jack (05/22/2023 5:53 AM EDT) Pathologist [facility] [place] TSH 2.54 0.27 - 4.20 mcIU/mL [facility] Comment: Reference Interval (mcIU/mL): Females: ??First Trimester: 0.23-3.88 ??Second Trimester: 0.22-3.90 ??Third Trimester: 0.44-4.66 Blood 05/22/2023 5:53 AM EDT 05/22/2023 5:59 AM EDT Narrative Resulting Agency Comment Spec In Lab Jerman Metcalf MD CHEMISTRY ORDERABLES Performing Organization Address [facility]/ZIP Co de Phone Number [facility] [place] [address] * Phosphorus (05/22/2023 5:53 AM EDT) Pathologist [facility] [place] Phosphorus 3.0 2.5 - 4.5 mg/dL [facility] Blood 05/22/2023 5:53 AM EDT 05/22/2023 5:59 AM EDT Narrative Resulting Agency Comment Spec In Lab Jerman Metcalf MD CHEMISTRY ORDERABLES Performing Organization Address [facility]/ZIP Co de Phone Number [facility] [place] [address] * Magnesium (05/22/2023 5:53 AM EDT) Magnesium 0.98 0.69 - 1.07 mmol/L [facility] Blood 05/22/2023 5:53 AM EDT 05/22/2023 5:59 AM EDT Narrative Resulting Agency Comment Spec In Lab Jerman Metcalf MD CHEMISTRY ORDERABLES Performing Organization Address [facility] Co de Phone Number [facility] [place] [address] * Lipase (05/22/2023 5:53 AM EDT) Pathologist [facility] [place] Lipase 41 0 - 60 unit/L [facility] Blood 05/22/2023 5:53 AM EDT 05/22/2023 5:59 AM EDT Narrative Resulting Agency Comment Spec In Lab Jerman Metcalf MD CHEMISTRY ORDERABLES Performing Organization Address [facility] de Phone Number [facility] [place] [address] * (ABNORMAL) Comprehensive metabolic panel (non-fasting) (05/22/2023 5:53 AM EDT) [facility] Glucose Lvl 99 65 - 199 mg/dL [facility] Comment:Diabetes: >=200 mg/d L plus symptoms BUN 33(H) 8 - 18 mg/dL [facility] Creatinine 1.32(H) 0.70 - 1.20 mg/dL [facility] Sodium 126(L) 135 - 145 mmol/L [facility] Potassium Not Perf 3.5 - 5.0 [facility] Comment: Unable to quantitate due to sample hemolysis. ??Sample redraw suggested. Called by: TYLOR, Read back by: Daniel Arguello, Date/Time:05/22/23 06:33. Please note: ??Patients with WBC >100,000 may have falsely elevated Potassium levels. ??For accurate Potassium quantification in these patients send serum separator tube (gold top) for subsequent determinations. ??Contact the Clinical Chemistry Laboratory if there are any questions. Chloride 94(L) 98 - 107 mmol/L [facility] CO2 21(L) 22 - 31 mmol/L [facility] Anion Gap 11 5 - 15 mmol/L [facility] Calcium 9.5 8.5 - 10.5 mg/dL [facility] Total Protein 7.9 6.1 - 8.0 g/dL [facility] Albumin 3.9 3.2 - 5.2 g/dL [facility] AST Not Perf 0 - 30 [facility] Comment: Unable to quantitate due to sample hemolysis. ??Sample redraw suggested. Called by: TYLOR, Read back by: Daniel Arguello, Date/Time:05/22/23 06:33. ALT Not Perf 0 - 30 [facility] Comment: Unable to quantitate due to sample hemolysis. ??Sample redraw suggested. Called by: TYLOR, Read back by: Daniel Arguello, Date/Time:05/22/23 06:33. Alk Phos 134(H) 35 - 105 unit/L [facility] Total Bilirubin 0.3 0.2 - 1.3 mg/dL [facility] Estimated GFR 45(L) >=60 mL/min/1. 73 m?? [facility] Comment: This patient's estimated GFR [...] and symptoms in addition to eGFR. Blood 05/22/2023 5:53 AM EDT 05/22/2023 5:59 AM EDT Narrative Resulting Agency Comment Spec In Lab Jerman Metcalf MD CHEMISTRY ORDERABLES [facility] [address] [place] [address] documented in this encounter Visit Diagnoses Diagnosis Rash- Primary Rash and other nonspecific skin eruption Rash Rash and other nonspecific skin eruption Nausea and vomiting, unspecified vomiting type Non-intractable cyclical vomiting with nausea Pain in both lower extremities Chronic pain disorder Chronic pain syndrome Spinal stenosis of lumbar region, unspecified whether neurogenic claudication present Neurodermatitis Lichenification and lichen simplex chronicus Hyponatremia Hyposmolality and/or hyponatremia Thyroid nodule Nontoxic uninodular goiter documented in this encounter Admitting Diagnoses Diagnosis Rash Rash and other nonspecific skin eruption documented in this encounter Administered Medications Inactive Administered Medications - up to 3 most recent administrations Medication Order MAR Action Action Date Dose Rate Site acetaminophen (Tylenol) tablet 650 mg 650 mg, Oral, EVERY 6 HOURS PRN, 3 doses, Starting on Sun05/25/23 at 0107, Until 05/26/23 at 2357, Pain, Fever, Headaches, Maximum dose of acetaminophen is 4000 mg from all sources in 24 hours. When ordered for pain, acetaminophen should be given even when other ordered pain medications are indicated. , Routine Given 05/26/2023 11:57 PM EDT 650 mg Given 05/26/2023 1:06 PM EDT 650 mg Given 05/25/2023 1:24 AM EDT 650 mg acetaminophen (Tylenol) tablet 650 mg 650 mg, Oral, ONCE, 1 dose, On Sun05/27/23 at 0400, Maximum dose of acetaminophen is 4,000 mg from all sources in 24 hours. When ordered for pain, acetaminophen should be given even when other ordered pain medications are indicated. , Routine Given 05/27/2023 3:11 AM EDT 650 mg acetaminophen (Tylenol) tablet 975 mg 975 mg, Oral, ONCE, 1 dose, On Sun05/22/23 at 0815, Maximum dose of acetaminophen is 4,000 mg from all sources in 24 hours. When ordered for pain, acetaminophen should be given even when other ordered pain medications are indicated. , STAT Given 05/22/2023 8:34 AM EDT 975 mg acyclovir (Zovirax) 500 mg in sodium chloride 0.9% 260 mL infusion 500 mg, Intravenous, EVERY 12 HOURS, First dose (after last modification) on Sun05/22/23 at 2200, Until Discontinued, Administer over 60 Minutes, Ordered dose: 10 mg/kg/dose (Gilbert), Indication for (Active or Suspected): Skin/Skin Structure New Bag 05/23/2023 11:08 PM EDT 500 mg 260 mL/hr Restarted 05/23/2023 10:58 AM EDT 260 mL/hr New Bag 05/23/2023 9:38 AM EDT 500 mg 260 mL/hr amitriptyline (Elavil) tablet 20 mg 20 mg, Oral, NIGHTLY, First dose on Sun05/22/23 at 2100, Until Discontinued, Routine Given 05/26/2023 9:25 PM EDT 20 mg Given 05/25/2023 8:58 PM EDT 20 mg Given 05/24/2023 9:33 PM EDT 20 mg amLODIPine (Norvasc) tablet 5 mg 5 mg, Oral, DAILY, First dose on Sun05/25/23 at 1800, Until Discontinued, Routine Given 05/27/2023 9:56 AM EDT 5 mg Given 05/26/2023 8:49 AM EDT 5 mg Given 05/25/2023 5:14 PM EDT 5 mg baclofen (Lioresal) tablet 10 mg 10 mg, Oral, 2 TIMES DAILY, First dose on Sun05/22/23 at 1210, Until Discontinued, Routine Given 05/27/2023 9:57 AM EDT 10 mg Given 05/26/2023 9:25 PM EDT 10 mg Given 05/26/2023 8:39 AM EDT 10 mg bisacodyL (Dulcolax) suppository 10 mg 10 mg, Rectal, DAILY PRN, Starting on Sun05/24/23 at 1751, Until Sun05/27/23 at 1720, Constipation, Routine cholecalciferol (Vitamin D3) tablet 2,000 Units 2,000 Units, Oral, DAILY, First dose on Sun05/27/23 at 0915, Until Discontinued, 40 units is equivalent to 1 mcg of cholecalciferol., Routine Given 05/27/2023 10:04 AM EDT 2,000 Un its cyanocobalamin (Vitamin B-12) (Vitamin B-12) tablet 1,000 mcg 1,000 mcg, Oral, DAILY, First dose on Sun05/27/23 at 1245, Until Discontinued, Routine Given 05/27/2023 12:50 PM EDT 1,000 mcg dapsone (Aczone) tablet 50 mg 50 mg, Oral, 2 TIMES DAILY, First dose on Sun05/23/23 at 1215, Until Discontinued, Routine, Indication for (Active or Suspected): Other (See comment) Given 05/26/2023 8:40 AM EDT 50 mg Given 05/25/2023 9:00 PM EDT 50 mg Given 05/25/2023 8:41 AM EDT 50 mg dapsone (Aczone) tablet 75 mg 75 mg, Oral, 2 TIMES DAILY, First dose (after last modification) on 05/26/23 at 2100, Until Discontinued, Routine, Indication for (Active or Suspected): Other (See comment) Given 05/27/2023 9:55 AM EDT 7 5 mg Given 05/26/2023 9:23 PM EDT 75 mg diphenhydrAMINE (Benadryl) (50 mg/mL) injection 12.5 mg 12.5 mg, Intravenous, ONCE, 1 dose, On Chen 05/24/23 at 0015, Give with Compazine, Routine Given 05/24/2023 12:28 AM EDT 12.5 mg diphenhydrAMINE (Benadryl) (50 mg/mL) injection 12.5 mg 12.5 mg, Intravenous, ONCE, 1 dose, On Chen 05/24/23 at 0315, Give with Compazine, Routine Given 05/24/2023 2:38 AM EDT 12.5 mg ferrous sulfate EC (FeroSul) tablet 325 mg 325 mg, Oral, EVERY OTHER DAY, First dose on 05/26/23 at 1715, Until Discontinued, DO NOT CRUSH OR OPEN. Take with food or water. , Routine Given 05/26/2023 4:38 PM EDT 325 mg gabapentin (Neurontin) capsule 100 mg 100 mg, Oral, ONCE, 1 dose, On 05/26/23 at 1715, Routine Given 05/26/2023 4:38 PM EDT 100 mg gabapentin (Neurontin) capsule 300 mg 300 mg, Oral, ONCE, 1 dose, On Sun05/22/23 at 1815, Routine Given 05/22/2023 5:23 PM EDT 300 mg gabapentin (Neurontin) capsule 300 mg 300 mg, Oral, NIGHTLY, First dose on Sun05/26/23 at 2100, Until Discontinued, Routine gabapentin (Neurontin) capsule 600 mg 600 mg, Oral, ONCE, 1 dose, On Sun05/22/23 at 0821, Routine Given 05/22/2023 8:33 AM EDT 600 mg hydrALAZINE (Apresoline) (20 mg/mL) injection 5 mg 5 mg, Intravenous, ONCE, 1 dose, On Sun05/25/23 at 1730 Given 05/25/2023 4:44 PM EDT 5 mg hydrocortisone 1 % cream Topical (Top), 2 TIMES DAILY, First dose on Sun05/24/23 at 0930, Until Discontinued, Application Site: rash Given 05/26/2023 9:58 AM EDT 1 each Given 05/25/2023 8:57 PM EDT Given 05/25/2023 9:00 AM EDT HYDROmorphone (Dilaudid) (0.5 mg/0.5 mL) injection syringe 0.2 mg 0.2 mg, Subcutaneous, EVERY 4 HOURS PRN, Starting on Sun05/23/23 at 1224, Until Sun05/25/23 at 1207, Pain, for pain refractory to oxycodone, Routine Given 05/23/2023 12:38 PM EDT 0.2 mg hydrOXYzine (Atarax) tablet 50 mg 50 mg, Oral, NIGHTLY, First dose on Sun05/22/23 at 2130, Until Discontinued, Routine Given 05/26/2023 9:25 PM EDT 50 mg Given 05/25/2023 8:58 PM EDT 50 mg Given 05/24/2023 9:34 PM EDT 50 mg hydrOXYzine (Atarax) tablet 50 mg 50 mg, Oral, ONCE, 1 dose, On Sun05/25/23 at 0230, Routine Given 05/25/2023 2:13 AM EDT 50 mg lactated Ringers 1,000 mL IV bolus at 2,000 mL/hr, Intravenous, ONCE, 1 dose, On Sun05/22/23 at 0541 New Bag 05/22/2023 6:23 AM EDT 2000 mL/hr lactated ringers infusion 100 mL/hr, Intravenous, CONTINUOUS, Starting on Chen 05/24/23 at 1845, Until Sun05/25/23 at 0644 New Bag 05/24/2023 6:29 PM EDT 100 mL/hr 100 mL/hr lidocaine (Xylocaine) 1% (10 mg/mL) injection 3 mg 3 mg (0.3 mL), Subcutaneous, ONCE PRN, 1 dose, Starting on Sun05/22/23 at 0535, Until Sun05/27/23 at 1720, for discomfort with PIV insertion, Routine LORazepam (Ativan) tablet 0.5 mg 0.5 mg, Oral, ONCE, 1 dose, On Sun05/25/23 at 0645, Routine Given 05/25/2023 5:56 AM EDT 0.5 mg losartan (Cozaar) tablet 25 mg 25 mg, Oral, DAILY, First dose on 05/26/23 at 1100, Until Discontinued, Routine Given 05/27/2023 9:56 AM EDT 25 mg Given 05/26/2023 12:58 PM EDT 25 mg magnesium sulfate 2 g in sterile water 50 mL infusion 2 g, Intravenous, ONCE, 1 dose, On 05/26/23 at 1615, Administer over 120 Minutes Restarted 05/26/2023 6:01 PM EDT 25 mL/hr New Bag 05/26/2023 3:52 PM EDT 2 g 25 mL/hr metoclopramide (Reglan) tablet 10 mg 10 mg, Oral, EVERY 6 HOURS PRN, Starting on Sun05/23/23 at 1453, Until Chen 05/24/23 at 1801, Nausea, for nausea, Routine Given 05/24/2023 1:47 PM EDT 10 mg Given 05/24/2023 8:31 AM EDT 10 mg Given 05/24/2023 2:21 AM EDT 10 mg morphine (4 mg/mL) injection 4 mg 4 mg, Intravenous, ONCE, 1 dose, On Sun05/22/23 at 0537, STAT Given 05/22/2023 5:51 AM EDT 4 mg morphine (4 mg/mL) injection 4 mg 4 mg, Intravenous, ONCE, 1 dose, On Sun05/22/23 at 0629, STAT Given 05/22/2023 6:33 AM EDT 4 mg nystatin (Mycostatin) (100,000 units/mL) oral liquid 100,000 Units 100,000 Units, Oral, 4 TIMES DAILY, First dose on Sun05/26/23 at 1345, Until Discontinued, Routine Given 05/27/2023 12:51 PM EDT 100,000 Units Given 05/27/2023 9:58 AM EDT 100,000 Units Given 05/26/2023 9:26 PM EDT 100,000 Units oxyCODONE (Roxicodone) tablet 5 mg 5 mg, Oral, ONCE, 1 dose, On Sun05/22/23 at 1142, Routine Given 05/22/2023 12:33 PM EDT 5 mg oxyCODONE (Roxicodone) tablet 5 mg 5 mg, Oral, EVERY 4 HOURS PRN, Starting on Sun05/22/23 at 1541, Until Sun05/25/23 at 1206, Pain, For moderate to severe pain, For pain 6/10 and above, Routine Given 05/25/2023 8:45 AM EDT 5 mg Given 05/24/2023 2:21 AM EDT 5 mg Given 05/23/2023 2:33 PM EDT 5 mg pantoprazole EC (Protonix) tablet 40 mg 40 mg, Oral, DAILY, First dose on Sun05/22/23 at 1210, Until Discontinued, DO NOT CRUSH OR OPEN Given 05/27/2023 9:57 AM EDT 40 mg Given 05/26/2023 8:40 AM EDT 40 mg Given 05/25/2023 8:41 AM EDT 40 mg polyethylene glycoL (Miralax) packet 17 g 17 g, Oral, 2 TIMES DAILY, First dose (after last modification) on Sun05/24/23 at 1845, Until Discontinued, Routine Given 05/27/2023 9:48 AM EDT 17 g Given 05/26/2023 9:25 PM EDT 17 g Given 05/26/2023 8:38 AM EDT 17 g prochlorperazine (Compazine) (5 mg/mL) injection 10 mg 10 mg, Intravenous, ONCE, 1 dose, On Sun05/24/23 at 0415, Please do not administer earlier than 0315 on 05/24, Routine Given 05/24/2023 4:00 AM EDT 10 mg prochlorperazine (Compazine) (5 mg/mL) injection 10 mg 10 mg, Intravenous, EVERY 6 HOURS PRN, Starting on Chen 05/24/23 at 1757, Until 05/26/23 at 1356, Nausea, Vomiting, Routine Given 05/26/2023 10:01 AM EDT 10 mg Given 05/25/2023 8:41 AM EDT 10 mg Given 05/25/2023 1:24 AM EDT 10 mg prochlorperazine (Compazine) (5 mg/mL) injection 10 mg 10 mg, Intravenous, ONCE, 1 dose, On Sun05/25/23 at 1300, Please do not administer earlier than 0315 on 05/24, Routine Given 05/25/2023 1:14 PM EDT 10 mg prochlorperazine (Compazine) (5 mg/mL) injection 10 mg 10 mg, Intravenous, ONCE, 1 dose, On 05/26/23 at 1445, Please do not administer earlier than 0315 on 05/24, Routine Given 05/26/2023 2:09 PM EDT 10 mg prochlorperazine (Compazine) tablet 10 mg 10 mg, Oral, ONCE, 1 dose, On Chen 05/24/23 at 0015, Maximum dose: 50 mg / 24 hrs, Routine Given 05/24/2023 12:08 AM EDT 10 mg prochlorperazine (Compazine) tablet 5 mg 5 mg, Oral, EVERY 6 HOURS PRN, Starting on 05/26/23 at 1607, Until 05/27/23 at 1720, Nausea, Maximum dose: 50 mg / 24 hrs, Routine Given 05/27/2023 1:05 AM EDT 5 mg senna-docusate (Pericolace) 8.6-50 mg per tablet 1 tablet 1 tablet, Oral, 2 TIMES DAILY, First dose on Chen 05/24/23 at 2100, Until Discontinued, Routine Given 05/27/2023 9:56 AM EDT 1 tablet Given 05/26/2023 9:25 PM EDT 1 tablet Given 05/26/2023 8:40 AM EDT 1 tablet sodium chloride 0.9 % (flush) (BD PosiFlush Normal Saline 0.9) flush 5 mL 5 mL, Intravenous, 2 TIMES DAILY, First dose on Sun05/22/23 at 0900, Until Discontinued, Routine Given 05/26/2023 9:24 PM EDT 5 mLs Given 05/26/2023 10:00 AM EDT 5 mLs Given 05/25/2023 8:58 PM EDT 5 mLs sodium chloride 0.9 % (flush) (BD PosiFlush Normal Saline 0.9) flush 5 mL 5 mL, Intravenous, 2 TIMES DAILY, First dose on Sun05/22/23 at 1210, Until Discontinued, Routine Given 05/27/2023 9:59 AM EDT 5 mLs Given 05/26/2023 9:24 PM EDT 5 mLs Given 05/26/2023 10:00 AM EDT 5 mLs sodium chloride 0.9 % (flush) (BD PosiFlush Normal Saline 0.9) flush 5-20 mL 5-20 mL, Intravenous, EVERY 1 MIN PRN, Starting on Sun05/22/23 at 0535, Until Sun05/27/23 at 1720, flush, Flush pertains to all indwelling lines. Flush per protocol found in the job aid using the link provided on this medication record., Routine sodium chloride 0.9% infusion 100 mL/hr, Intravenous, CONTINUOUS, Starting on Sun05/22/23 at 1303, Until Sun05/22/23 at 2051 New Bag 05/22/2023 5:31 PM EDT 100 mL/hr 100 mL/hr triamcinolone (Kenalog) 0.1 % cream Topical (Top), 2 TIMES DAILY, First dose on Sun05/22/23 at 2130, Until Discontinued, Application Site: areas of rash on arms/legs/trunk Given 05/24/2023 8:36 AM EDT Given 05/23/2023 11:08 PM EDT Given 05/23/2023 8:10 AM EDT triamcinolone (Kenalog) 0.1 % cream Topical (Top), 2 TIMES DAILY, First dose on 05/26/23 at 1400, Until Discontinued, Application Site: blisters on trunk/extremities Given 05/26/2023 2:12 PM EDT 1 each warfarin (Coumadin) daily order reminder - pharmacy consult Oral, EVERY 24 HOURS, First dose on Chen 05/24/23 at 1400, Until Discontinued, If the daily warfarin order has not been placed, contact the pharmacy to confirm that the order will be written, the dose is held or discontinued., Medication Name: Warfarin, Primary Service: Hospital Medicine, Treatment Plan: Continuation of Therapy, Indication for Anticoagulation: Hypercoagulable State, INR Goal Range: 2-3, Anticipated Duration of Therapy: Indefinite warfarin (Coumadin) tablet 5 mg 5 mg, Oral, ONCE, 1 dose, On Sun05/23/23 at 1700, Routine Given 05/23/2023 5:19 PM EDT 5 mg documented in this encounter Active and Recently Administered Medications Times are shown in EDT. Scheduled Medication Order 05/25/2023 05/26/2023 05/27/2023 acetaminophen (Tylenol) tablet 650 mg (COMPLETED) 650 mg, Oral, ONCE, 1 dose, On Sun05/27/23 at 0400, Maximum dose of acetaminophen is 4,000 mg from all sources in 24 hours. When ordered for pain, acetaminophen should be given even when other ordered pain medications are indicated. , Routine 310 (Given - Provider: Young Bright RN) amitriptyline (Elavil) tablet 20 mg 20 mg, Oral, NIGHTLY, First dose on Sun05/22/23 at 2100, Until Discontinued, Routine 2057 (Given - Provider: Young Bright RN) 2124 (Given - Provider: Young Bright RN) amLODIPine (Norvasc) tablet 5 mg 5 mg, Oral, DAILY, First dose on Sun05/25/23 at 1800, Until Discontinued, Routine 171 (Given - Provider: Linnea Hernandez RN) 0849 (Given - Provider: Gwen Roberts RN) 0956 (Given - Provider: Gwen Roberts RN) baclofen (Lioresal) tablet 10 mg 10 mg, Oral, 2 TIMES DAILY, First dose on Sun05/22/23 at 1210, Until Discontinued, Routine 0841 (Given - Provider: Linnea Hernandez RN)2057 (Given - Provider: Young Bright RN) 0839 (Given - Provider: Gwen Roberts RN)2124 (Given - Provider: Young Bright RN) 0957 (Given - Provider: Gwen Roberts RN) cholecalciferol (Vitamin D3) tablet 2,000 Units 2,000 Units, Oral, DAILY, First dose on 05/27/23 at 0915, Until Discontinued, 40 units is equivalent to 1 mcg of cholecalciferol., Routine 1004 (Given - Provider: Gwen Roberts RN) cyanocobalamin (Vitamin B-12) (Vitamin B-12) tablet 1,000 mcg 1,000 mcg, Oral, DAILY, First dose on 05/27/23 at 1245, Until Discontinued, Routine 1250 (Given - Provider: Gwen Roberts RN) dapsone (Aczone) tablet 50 mg (CANCELED) 50 mg, Oral, 2 TIMES DAILY, First dose on 05/23/23 at 1215, Until Discontinued, Routine, Indication for (Active or Suspected): Other (See comment) 0841 (Given - Provider: Linnea Hernandez RN)2100 (Given - Provider: Young Bright RN) 0840 (Given - Provider: Gwen Roberts RN) dapsone (Aczone) tablet 75 mg 75 mg, Oral, 2 TIMES DAILY, First dose (after last modification) on 05/26/23 at 2100, Until Discontinued, Routine, Indication for (Active or Suspected): Other (See comment) 2123 (Given - Provider: Young Bright RN) 0955 (Given - Provider: Gwen Roberts RN) ferrous sulfate EC (FeroSul) tablet 325 mg 325 mg, Oral, EVERY OTHER DAY, First dose on 05/26/23 at 1715, Until Discontinued, DO NOT CRUSH OR OPEN. Take with food or water. , Routine 1638 (Given - Provider: Gwen Roberts RN) gabapentin (Neurontin) capsule 100 mg (COMPLETED) 100 mg, Oral, ONCE, 1 dose, On 05/26/23 at 1715, Routine 1638 (Given - Provider: Gwen Roberts RN) gabapentin (Neurontin) capsule 300 mg 300 mg, Oral, NIGHTLY, First dose on 05/26/23 at 2100, Until Discontinued, Routine 2100 (Not Given - Provider: Young Bright RN - Reason: Patient/family refused) hydrALAZINE (Apresoline) (20 mg/mL) injection 5 mg (COMPLETED) 5 mg, Intravenous, ONCE, 1 dose, On Sun05/25/23 at 1730 1644 (Given - Provider: Linnea Hernandez RN) hydrocortisone 1 % cream Topical (Top), 2 TIMES DAILY, First dose on Chen 05/24/23 at 0930, Until Discontinued, Application Site: rash 0213 (Given - Provider: Jocelyn Mendoza RN)0900 (Given - Provider: Linnea Hernandez RN)2057 (Given - Provider: Young Bright RN) 0958 (Given - Provider: Gwen Roberts RN)2100 (Not Given - Provider: Young Bright RN - Reason: Patient/family refused) 0900 (Not Given - Provider: Gwen Roberts RN - Reason: Patient/family refused) hydrOXYzine (Atarax) tablet 50 mg 50 mg, Oral, NIGHTLY, First dose on Sun05/22/23 at 2130, Until Discontinued, Routine 2057 (Given - Provider: Young Bright RN) 2125 (Given - Provider: Young Bright RN) hydrOXYzine (Atarax) tablet 50 mg (COMPLETED) 50 mg, Oral, ONCE, 1 dose, On Sun05/25/23 at 0230, Routine 0213 (Given - Provider: Jocelyn Mendoza RN) LORazepam (Ativan) tablet 0.5 mg (COMPLETED) 0.5 mg, Oral, ONCE, 1 dose, On Sun05/25/23 at 0645, Routine 0556 (Given - Provider: Jocelyn Mendoza RN) losartan (Cozaar) tablet 25 mg 25 mg, Oral, DAILY, First dose on Sun05/26/23 at 1100, Until Discontinued, Routine 1258 (Given - Provider: Gwen Roberts RN) 0956 (Given - Provider: Gwen Roberts RN) magnesium sulfate 2 g in sterile water 50 mL infusion (COMPLETED) 2 g, Intravenous, ONCE, 1 dose, On 05/26/23 at 1615, Administer over 120 Minutes 1552 (New Bag - Provider: Gwen Roberts RN)1700 (Paused - Provider: Gwen Roberts RN)1752 (Stopped - Provider: Young Bright RN)1801 (Restarted - Provider: Gwen Roberts RN) nystatin (Mycostatin) (100,000 units/mL) oral liquid 100,000 Units 100,000 Units, Oral, 4 TIMES DAILY, First dose on 05/26/23 at 1345, Until Discontinued, Routine 1301 (Given - Provider: Gwen Roberts RN)1637 (Given - Provider: Gwen Roberst RN)2126 (Given - Provider: Young Bright RN) 0958 (Given - Provider: Gwen Roberts RN)1251 (Given - Provider: Gwen Roberts RN) pantoprazole EC (Protonix) tablet 40 mg 40 mg, Oral, DAILY, First dose on Sun05/22/23 at 1210, Until Discontinued, DO NOT CRUSH OR OPEN 0841 (Given - Provider: Linnea Hernandez RN) 0840 (Given - Provider: Gwen Roberts RN) 0957 (Given - Provider: Gwen Roberts RN) polyethylene glycoL (Miralax) packet 17 g 17 g, Oral, 2 TIMES DAILY, First dose (after last modification) on Chen 05/24/23 at 1845, Until Discontinued, Routine 0841 (Given - Provider: Linnea Hernandez RN)2057 (Given - Provider: Young Bright RN) 0838 (Given - Provider: Gwen Roberts RN)2125 (Given - Provider: Young Bright RN) 0948 (Given - Provider: Gwen Roberts RN) prochlorperazine (Compazine) (5 mg/mL) injection 10 mg (COMPLETED) 10 mg, Intravenous, ONCE, 1 dose, On Sun05/25/23 at 1300, Please do not administer earlier than 0315 on 05/24, Routine 1314 (Given - Provider: Linnea Hernandez RN) prochlorperazine (Compazine) (5 mg/mL) injection 10 mg (COMPLETED) 10 mg, Intravenous, ONCE, 1 dose, On 05/26/23 at 1445, Please do not administer earlier than 0315 on 05/24, Routine 1409 (Given - Provider: Gwen Roberts RN - Comment: one time dose for uncontrolled nausea) senna-docusate (Pericolace) 8.6-50 mg per tablet 1 tablet 1 tablet, Oral, 2 TIMES DAILY, First dose on Sun05/24/23 at 2100, Until Discontinued, Routine 0841 (Given - Provider: Linnea Hernandez RN)2057 (Given - Provider: Young Bright RN) 0840 (Given - Provider: Gwen Roberts RN)2124 (Given - Provider: Young Bright RN) 0956 (Given - Provider: Gwen Roberts RN) sodium chloride 0.9 % (flush) (BD PosiFlush Normal Saline 0.9) flush 5 mL 5 mL, Intravenous, 2 TIMES DAILY, First dose on Sun05/22/23 at 0900, Until Discontinued, Routine 0845 (Given - Provider: Linnea Hernandez RN)2057 (Given - Provider: Young Bright RN) 1000 (Given - Provider: Gwen Roberts RN)2123 (Given - Provider: Young Bright RN) 0900 (Not Given - Provider: Gwen Roberts RN - Reason: See comment - Comment: only 1 piv) sodium chloride 0.9 % (flush) (BD PosiFlush Normal Saline 0.9) flush 5 mL 5 mL, Intravenous, 2 TIMES DAILY, First dose on Sun05/22/23 at 1210, Until Discontinued, Routine 0845 (Given - Provider: Linnea Hernandez RN)2058 (Given - Provider: Young Bright RN) 1000 (Given - Provider: Gwen Roberts RN)2123 (Given - Provider: Young Bright RN) 0959 (Given - Provider: Gwen Roberts RN) triamcinolone (Kenalog) 0.1 % cream Topical (Top), 2 TIMES DAILY, First dose on Sun05/26/23 at 1400, Until Discontinued, Application Site: blisters on trunk/extremities 1412 (Given - Provider: Gwen Roberts RN)2100 (Not Given - Provider: Young Bright RN - Reason: Patient/family refused) 0900 (Not Given - Provider: Gwen Roberts RN - Reason: Patient/family refused) warfarin (Coumadin) daily order reminder - pharmacy consult(Linked Group 1) Oral, EVERY 24 HOURS, First dose on Chen 05/24/23 at 1400, Until Discontinued, If the daily warfarin order has not been placed, contact the pharmacy to confirm that the order will be written, the dose is held or discontinued., Medication Name: Warfarin, Primary Service: Hospital Medicine, Treatment Plan: Continuation of Therapy, Indication for Anticoagulation: Hypercoagulable State, INR Goal Range: 2-3, Anticipated Duration of Therapy: Indefinite 1400 (Dose held per treatment team - Provider: Linnea Hernandez RN) 1400 (Hold - Provider: Gwen Roberts RN - Reason: See comment - Comment: supratherapeutic INR) 1400 (Hold - Provider: Gwen Roberts RN - Reason: See comment - Comment: supratherapeutic, dose held) PRN Medication Order 05/25/2023 05/26/2023 05/27/2023 acetaminophen (Tylenol) tablet 650 mg (COMPLETED) 650 mg, Oral, EVERY 6 HOURS PRN, 3 doses, Starting on 05/25/23 at 0107, Until 05/26/23 at 2357, Pain, Fever, Headaches, Maximum dose of acetaminophen is 4000 mg from all sources in 24 hours. When ordered for pain, acetaminophen should be given even when other ordered pain medications are indicated. , Routine 0124 (Given - Provider: Jocelyn Mendoza RN) 1306 (Given - Provider: Gwen Roberts RN)2357 (Given - Provider: Jerman High RN) bisacodyL (Dulcolax) suppository 10 mg 10 mg, Rectal, DAILY PRN, Starting on Chen 05/24/23 at 1751, Until 05/27/23 at 1720, Constipation, Routine lidocaine (Xylocaine) 1% (10 mg/mL) injection 3 mg 3 mg (0.3 mL), Subcutaneous, ONCE PRN, 1 dose, Starting on 05/22/23 at 0535, Until 05/27/23 at 1720, for discomfort with PIV insertion, Routine lidocaine (Xylocaine) 1% (10 mg/mL) injection 3 mg 3 mg (0.3 mL), Subcutaneous, ONCE PRN, 1 dose, Starting on Tu05/22/23 at 1208, Until 05/27/23 at 1720, for discomfort with PIV insertion, Routine oxyCODONE (Roxicodone) tablet 5 mg (CANCELED) 5 mg, Oral, EVERY 4 HOURS PRN, Starting on Tu05/22/23 at 1541, Until 05/25/23 at 1206, Pain, For moderate to severe pain, For pain 6/10 and above, Routine 0845 (Given - Provider: Linnea Hernandez, LUIS) prochlorperazine (Compazine) (5 mg/mL) injection 10 mg (CANCELED) 10 mg, Intravenous, EVERY 6 HOURS PRN, Starting on Chen 05/24/23 at 1757, Until 05/26/23 at 1356, Nausea, Vomiting, Routine 0124 (Given - Provider: Jocelyn Mendoza RN)0841 (Given - Provider: Linnea Hernandez, LUIS) 1001 (Given - Provider: Gwen Roberts RN) prochlorperazine (Compazine) tablet 5 mg 5 mg, Oral, EVERY 6 HOURS PRN, Starting on 05/26/23 at 1607, Until 05/27/23 at 1720, Nausea, Maximum dose: 50 mg / 24 hrs, Routine 0105 (Given - Provider: Young Bright RN) sodium chloride 0.9 % (flush) (BD PosiFlush Normal Saline 0.9) flush 5-20 mL 5-20 mL, Intravenous, EVERY 1 MIN PRN, Starting on Tu05/22/23 at 0535, Until 05/27/23 at 1720, flush, Flush pertains to all indwelling lines. Flush per protocol found in the job aid using the link provided on this medication record., Routine sodium chloride 0.9 % (flush) (BD PosiFlush Normal Saline 0.9) flush 5-20 mL 5-20 mL, Intravenous, EVERY 1 MIN PRN, Starting on Tu05/22/23 at 1208, Until 10/8/23 at 1720, flush, Flush pertains to all indwelling lines. Flush per protocol found in the job aid using the link provided on this medication record., Routine Linked Groups Order Group 1: warfarin (Coumadin) daily order reminder - pharmacy consultJump to med Oral, EVERY 24 HOURS, First dose on Chen 05/24/23 at 1400, Until Discontinued, If the daily warfarin order has not been placed, contact the pharmacy to confirm that the order will be written, the dose is held or discontinued., Medication Name: Warfarin, Primary Service: Hospital Medicine, Treatment Plan: Continuation of Therapy, Indication for Anticoagulation: Hypercoagulable State, INR Goal Range: 2-3, Anticipated Duration of Therapy: Indefinite And Consult to Pharmacy (CANCELED) Routine, Medication Name: Warfarin, Reason for Consult? Pharmacist Managed Warfarin documented in this encounter Additional Health Concerns Infection Onset Date Last Indicated Resolved Time Rule Out Respiratory 05/22/2023 05/22/2023 023 12:10 PM EDT documented as of this encounter Care Teams Gang Supervisor Relationship Specialty Start Date End Date Renzo Castano APRN [address] [place] [address] PCP - General Family Medicine 05/31/21 documented as of this encounter
--- OUTSIDE RECORDS SUMMARY | 2024-03-21 13:59 | XMS_ITS | Encounter Summary ---
[place] [address] Care Team Providers Care Wheel Inspector Name Role Phone Renzo Castano APRN Primary Care Provider [phone]- [phone] Encounter Details Date Type Department Care Team (Latest Contact Info) Description 05/17/2023 12:30 PM EDT Laboratory Appointment Lab [address] [place] [id number] Calcinosis cutis Social History Tobacco Use Types [...] Name Priority Date/Time Associated Diagnosis Comments HC VENIPUNCTURE Routine 05/17/2023 12:51 PM EDT Calcinosis cutis documented in this encounter Results * (ABNORMAL) Comprehensive metabolic panel (non-fasting) (05/17/2023 12:51 PM EDT) Glucose Lvl 132 65 - 199 mg/dL [facility] Comment:Diabetes: >=200 mg/d L plus symptoms BUN 22(H) 8 - 18 mg/dL [facility] Creatinine 1.26(H) 0.70 - 1.20 mg/dL [facility] Sodium 136 135 - 145 mmol/L [facility] Potassium 5.2(H) 3.5 - 5.0 mmol/L [facility] Comment: Please note: ??Patients with WBC >100,000 may have falsely elevated Potassium levels. ??For accurate Potassium quantification in these patients send serum separator tube (gold top) for subsequent determinations. ??Contact the Clinical Chemistry Laboratory if there are any questions. Chloride 98 98 - 107 mmol/L [facility] CO2 25 22 - 31 mmol/L [facility] Anion Gap 13 5 - 15 mmol/L [facility] Calcium 9.2 8.5 - 10.5 mg/dL [facility] Total Protein 7.2 6.1 - 8.0 g/dL [facility] Albumin 3.6 3.2 - 5.2 g/dL [facility] AST 15 0 - 30 unit/L [facility] ALT 24 0 - 30 unit/L [facility] Alk Phos 142(H) 35 - 105 unit/L [facility] Total Bilirubin 0.3 0.2 - 1.3 mg/dL [facility] Estimated GFR 47(L) >=60 mL/min/1. 73 m?? [facility] Comment: This patient's estimated GFR [...] and symptoms in addition to eGFR. Blood 05/17/2023 12:5 1 PM EDT 05/17/2023 1:08 PM EDT Narrative Resulting Agency Comment Spec In Lab Grant Leos MD CHEMISTRY ORDERABLE S [facility] [place] [address] documented in this encounter Visit Diagnoses Diagnosis Calcinosis cutis Degenerative skin disorder documented in this encounter Care Teams Wheel Inspector Relationship Specialty Start Date End Date Renzo Castano APRN [address] [place] [address] PCP - General Family Medicine 05/31/21 documented as of this encounter
--- OUTSIDE RECORDS SUMMARY | 2024-03-21 13:59 | XMS_ITS | Encounter Summary ---
[place] [address] Care Team Providers Care Senior Warehouse Clerk Name Role Phone Renzo Castano APRN Primary Care Provider [phone]- [phone] Encounter Details Date Type Department Care Team (Latest Contact Info) Description 04/17/2023 Travel Social History Tobacco Use Types Packs/Day [...] on filedocumented in this encounter Care Teams Senior Warehouse Clerk Relationship Specialty Start Date End Date Renzo Castano APRN [address] [place], [place] [address] PCP - General Family Medicine 05/31/21 documented as of this encounter
--- OUTSIDE RECORDS SUMMARY | 2024-03-21 13:59 | XMS_ITS | Encounter Summary ---
[place] [address] Care Team Providers Care Piledriver Carpenter Name Role Phone Renzo Castano APRN Primary Care Provider [phone]- [phone] Encounter Details Date Type Department Care Team (Late st Contact Info) Description 04/11/2023 Telephone [place] [phone] Khoi Crawford MD [facility] [place] [address] Social History Tobacco Use Types Packs/Day Years [...] Telephone Encounter - Khoi Crawford MD - 04/11/2023 10:36 AM EDT I have spoken to Ms. Junior twice this week to return call to rheum/derm clinic who has left her couple of voicemails to schedule her in rheum derm clinic. She says she will call them today. documented in this encounter Plan of Treatment Not on file documented as of this encounter Visit Diagnoses Not on filedocumented in this encounter Care Teams Piledriver Carpenter Relationship Specialty Start Date End Date Renzo Castano APRN [address] [place] [address] PCP - General Family Medicine 05/31/21 documented as of this encounter
--- OUTSIDE RECORDS SUMMARY | 2024-03-21 13:59 | XMS_ITS | Encounter Summary ---
Author Organization [facility] [place] [address] Care Team Providers Care Check Embosser Name Role Phone Renzo Castano APRN Primary Care Provider [phone]- [phone] Encounter Details Date Type Department Care Team (Late st Contact Info) Description 05/07/2023 Orders [place] [phone] Khoi Crawford MD [facility] [place] [address] Calcinosis cutis Social History Tobacco Use Types [...] documented as of this encounter Results * (ABNORMAL) Comprehensive metabolic panel (non-fasting) (05/17/2023 12:51 PM EDT) Glucose Lvl 132 65 - 199 mg/dL [facility] Comment:Diabetes: >=200 mg/d L plus symptoms BUN 22(H) 8 - 18 mg/dL [facility] Creatinine 1.26(H) 0.70 - 1.20 mg/dL [facility] Sodium 136 135 - 145 mmol/L [facility] Potassium 5.2(H) 3.5 - 5.0 mmol/L [facility] Comment: Please note: ??Patients with WBC >100,000 may have falsely elevated Potassium levels. ??For accurate Potassium quantification in these patients send serum separator tube (gold top) for subsequent determinations. ??Contact the Clinical Chemistry Laboratory if there are any questions. Chloride 98 98 - 107 mmol/L [facility] CO2 25 22 - 31 mmol/L [facility] Anion Gap 13 5 - 15 mmol/L [facility] Calcium 9.2 8.5 - 10.5 mg/dL [facility] Total Protein 7.2 6.1 - 8.0 g/dL [facility] Albumin 3.6 3.2 - 5.2 g/dL [facility] AST 15 0 - 30 unit/L [facility] ALT 24 0 - 30 unit/L [facility] Alk Phos 142(H) 35 - 105 unit/L [facility] Total Bilirubin 0.3 0.2 - 1.3 mg/dL [facility] Estimated GFR 47(L) >=60 mL/min/1. 73 m?? [facility] Comment: This patient's estimated [...] Lab Grant Leos MD CHEMISTRY ORDERABLE S [facility] [place] [address] documented in this encounter Visit Diagnoses Diagnosis Calcinosis cutis Degenerative skin disorder documented in this encounter Care Teams Check Embosser Relationship Specialty Start Date End Date Renzo Castano APRN [address] [place] [address] PCP - General Family Medicine 05/31/21 documented as of this encounter
--- OUTSIDE RECORDS SUMMARY | 2024-03-21 14:00 | XMS_ITS | Encounter Summary ---
[place] [address] Care Team Providers Care Sales Teacher Name Role Phone Jerman Powlel MD Primary Care Provider [phone] Reason for Visit * Reason Onset Date Comments Questions 09/19/2019 Pain Encounter Details Date Type Department Care Team (Late st Contact Info) Description 09/19/2019 [place] [phone] Sherrie Whyte, RN Questions (Pain) Social History Tobacco Use Types Packs/Day Years [...] encounter Miscellaneous Notes * Telephone Encounter - Alyssa Zuluaga - 09/23/2019 3:53 PM EST Pt called back adv she was still waiting to hear back about an appointment. Pt states her pain is from her knee almost down to her foot. Scheduled her in with Alyssa Jimenez for next available appt. * Telephone Encounter - Sherrie Whyte, RN - 09/19/2019 12:00 PM EST Primary osteoarthritis of R knee, Office visit, 08/27/2019, BarbaraAlyssa Pa, Mrs Junior called and states she is having pain from her knee to her foot when she steps on her foot, after receiving the synvist injection in her R knee. documented in this encounter Plan of Treatment Not on file documented as of this encounter Visit Diagnoses Not on filedocumented in this encounter Care Teams Sales Teacher Relationship Specialty Start Date End Date Jerman Powell MD [address] [place] [address] PCP - General 05/30/11 05/30/21 documented as of this encounter
--- OUTSIDE RECORDS SUMMARY | 2024-03-21 14:00 | XMS_ITS | Encounter Summary ---
Author Organization [facility]ly [facility] [place] [address] Care Team Providers Care Business Continuity Manager Name Role Phone Renzo Castano APRN Primary Care Provider [phone]- [phone] Reason for Visit * Reason Comments Follow-up * Consultation (Routine) - Closed Specialty Diagnoses / Procedures Referred By Candelario rodriguez Referred To Contact Dermatology Diagnoses Dermatitis herpetiformis Dermatitis Herpetiformis; Est. Patient-Notes Received Procedures Consult Renzo Castano APRN [address] [facility] [address] [place] [address] Fausto Luna MD [address] [place] [address], [facility] [place] [address] Referral ID Status Reason Start Date Expiration Date V isits Requested Visits Authorized [id number] Closed Consult, Test & Treat PCP Updated and/or Approved 01/14/2021 01/14/2022 6 6 Encounter Details Date Type Department Care Team (Late st Contact Info) Description 05/31/2021 11:30 AM EDT Office Visit Dermatology at [address] [phone] Fausto Luna MD [address] [place] [address], [facility] [place] [address] Dermatitis herpetiformis Social History Tobacco Use Types [...] as of this encounter Progress Notes * Fausto Luna MD - 05/31/2021 11:30 AM EDT Problems: 1. Followup of dermatitis herpetiformis. ?? 2. On dapsone 100 mg q.a.m. ?? 3. History of acne and seborrhea of scalp. Janna follows up after last seeing me in 2012. At that time I was treating her with dapsone 100 mg every morning for her DH. It was well controlled with this therapy. She we then last each other infollow-up and she was receiving refills of her dapsone from her PCP. She states that she continues to have intermittent flares of her dermatitis herpetiformis and does not feel that it was being adequ ately treated at that time. She referred back to see me again by Renzo Castano APRN her current PCP. Physical examination reveals hypopigmented patches on the extensor elbows bilaterally at sites of prior DH flares with some activity at 1 or 2 peripheral edges/margins of these patches. She has also excoriated erythematous patch on the left. Shoulder but without hypopigmentation. She also has some areas that she is been digging and scratching in her scalp when it has associated alopecia with them, and these are present in the frontal parietal scalp to the right of midline. Assessment plan: Dermatitis herpetiformis still active despite 100 mg of dapsone a day 1. Today check CBC to rule out anemia. Continue her current dapsone prescription 25 mg taking 2 p.o. nightly and 2 p.o. nightly. She has plenty and does not need a refill at this time. 2. As of mid-April she was given a course of cephalexin to try but it did not have relief. Begin again minocycline 100 mg 1 p.o. nightly for 1 week and then twice daily for 1 month then return toclinic. Dispense 60 with 0 refills. 3. We will call in refills for her selenium sulfide 2.5% lotion use q. oh day as shampoo for her scalp. Rinse out after 2 to 3 minutes dispense 120 mL with 5 refills 4. We will call in refill for clobetasol scalp solution applied pruritic areas and scalp on a nightly basis as needed. Dispense 60 mL with 3 refills 5. For cutaneous areas of pruritus on extensor elbows, begin triamcinolone 0.1% cream applying it twice daily as needed for dermatitis herpetiformis dispense 30 g with 3 refills.. 6. Return to clinic here for repeat check in 1 month. CC: Renzo Castano APRN documented in this encounter Plan of Treatment Not on file documented as of this encounter Visit Diagnoses Diagnosis Dermatitis herpetiformis documented in this encounter Care Teams Business Continuity Manager Relationship Specialty Start Date End Date Renzo Castano APRN [address] [place] [address] PCP - General Family Medicine 05/31/21 documented as of this encounter
--- OUTSIDE RECORDS SUMMARY | 2024-03-21 14:00 | XMS_ITS | Encounter Summary ---
Author Organization [facility] [place] [address] Care Team Providers Care Masonry Contractor Name Role Phone Renzo Castano APRN Primary Care Provider [phone]- [phone] Encounter Details Date Type Department Care Team (Late st Contact Info) Description 06/21/2021 Telephone Dermatology at [address] [place] [address] Marlys Shell LPN Social History Tobacco Use Types Packs/Day Years [...] encounter Miscellaneous Notes * Telephone Encounter - Marlys Shell LPN - 06/21/2021 3:26 PM EDT Received labs today. Patient has low blood count. Dr. Luna recommends she STOP Dapsone today. Patient has follow up on 07/04/21. Reviewed Dr. Royal concerns and recommendation with patient. She voiced understanding. documented in this encounter Plan of Treatment Not on file documented as of this encounter Visit Diagnoses Not on filedocumented in this encounter Care Teams Masonry Contractor Relationship Specialty Start Date End Date Renzo Castano APRN [address] [place] [address] PCP - General Family Medicine 05/31/21 documented as of this encounter
--- OUTSIDE RECORDS SUMMARY | 2024-03-21 14:00 | XMS_ITS | Encounter Summary ---
Author Organization [facility] [place] [address] Care Team Providers Care Drilling Engineer Name Role Phone Jerman Powell MD Primary Care Provider [phone] Encounter Details Date Type Department Care Team (Late st Contact Info) Description 11/29/2018 External [place] [address] Juan Miguel Mi MD [facility] [place] [address] Social History Tobacco Use Types Packs/Day Years [...] Procedure Name Priority Date/Time Associated Diagnosis Comments EMG SCAN Routine 11/26/2018 documented in this encounter Results * Scan Doc: EMG (11/26/2018) Juan Miguel Mi MD MEDIA MGR SCAN EXT O RDR/RSLT documented in this encounter Visit Diagnoses Not on filedocumented in this encounter Care Teams Drilling Engineer Relationship Specialty Start Date End Date Jerman Powell MD [address] [place] [id number] PCP - General 05/30/11 05/30/21 documented as of this encounter
--- OUTSIDE RECORDS SUMMARY | 2024-03-21 14:00 | XMS_ITS | Encounter Summary ---
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 Procedures Duplex Study IVC/Iliac, Limited Asael Jimenez LITHOGRAPHIC RETOUCHER APPRENTICE [facility] [place] [address] [facility] [address] [place] [phone] Referral ID Status Reason Start Date Expiration Date V isits Requested Visits Authorized [id number] Closed Specialty Service Requested 05/05/2022 05/05/2023 1 1 * Diagnostic Test (Routine) - Closed Specialty Diagnoses / Procedures Referred By Contac t Referred To Contact 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 Procedures Duplex for DVT, Leg, Unilat Asael Jimenez APRN [facility] [place] [address] [facility] [address] [place] [phone] Referral ID Status Reason Start Date Expiration Date V isits Requested Visits Authorized [id number] Closed Specialty Service Requested 05/05/2022 05/05/2023 1 1 Encounter Details Date Type Department Care Team (Late st Contact Info) Description 05/05/2022 Orders [place] [address] Asael Jimenez APRN [facility] [place] [address] May-Thurner syndrome Social History Tobacco Use Types [...] documented as of this encounter Results * Duplex Study IVC/Iliac, Limited (01/10/2023 8:50 AM EDT) VB Text Report Department: Vascular Surgery Lab Patient: [id number] (ENDER KURTZ) CPT: [id number] Referring Physician: ASAEL JIMENEZ APRN ?? Indications: history of May Thurners and LEFT iliac vein stent. ? patency Findings: Interpretation: Left: Patent external iliac and proximal common iliac vein without evidence of obstruction; stent margins not visualized. Remainder of common iliac vein and inferior vena cava were not visualized due to overlying bowel gas. No identifiable significant change compared to previous exam 08/07/17 where iliac was examined on lower extremity venous duplex. Electronically Signed by: TANJA LEBRON MD on 2023-01-11 11:58:03 PM [facility] VB Text Report End of Report [facility] 01/10/2023 8:50 AM EDT Asael Jimenez APRN VASCULAR ORDERABLE S [facility] * Duplex for DVT, Leg, Unilat (01/10/2023 8:50 AM EDT) VB Text Report Department: Vascular Surgery Lab Patient: [id number] (ENDER KURTZ) CPT: [id number] Referring Physician: ASAEL JIMENEZ APRN ?? Indications: LEFT iliac vein, May Thurner, chronic DVT, ? 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
--- OUTSIDE RECORDS SUMMARY | 2024-03-21 14:00 | XMS_ITS | Encounter Summary ---
Author Organization [facility] [place] [address] Care Team Providers Care Vp Medical Name Role Phone Jerman Powell MD Primary Care Provider [phone] Reason for Referral * Diagnostic Test (Routine) - Closed Specialty Diagnoses / Procedures Referred By Contac t Referred To Contact Radiology Diagnoses Enchondroma of right tibia Procedures NM Bone Scan 3 Phase Barbara, LD Jacobsen [facility] [place] [address] [place] [address] Referral ID Status Reason Start Date Expiration Date V isits Requested Visits Authorized [id number] Closed Specialty Service Requested 09/30/2019 03/30/2021 1 1 Reason for Visit * Reason Comments Follow-up R knee pain Encounter Details Date Type Department Care Team (Late st Contact Info) Description 09/30/2019 10:15 AM EST Office [place] [address] Barbara, LD Jacobsen [facility] [place] [address] Enchondroma of right tibia (Primary Dx) Social History Tobacco Use Types Packs/Day Years [...] Sign Reading Time Taken Comments Blood Pressure 138/62 09/30/2019 9:46 AM EST Pulse 102 09/30/2019 9:46 AM EST Temperature - - Respiratory Rate - - Oxygen Saturation - - Inhaled Oxygen Concentration - - Weight 64.4 kg (142 lb) 09/30/2019 9:46 AM EST r eported Height 157.5 cm (5' 2) 09/30/2019 9:46 AM EST r eported Body Mass Index 25.97 09/30/2019 9:46 AM EST documented in this encounter Progress Notes * Barbara, LD Jacobsen - 09/30/2019 10:15 AM EST Images from the original note were not included. Department of Orthopaedics Division of Adult Joint Reconstructive Surgery CHIEF COMPLAINT: Chief Complaint Patient presents with ??? Follow-up R knee pain ARTHROPLASTY HISTORY/PREVIOUS KNEE SURGERY: 1. none Janna Junior was referred from Self mail I.D.: Janna Junior is a 63 y.o. year old female being seen today to discuss her right knee. Her history and physical exam were reviewed in detail. She has been seen in our clinic several times in the past for bilateral knee osteoarthritis. she has undergone cortisone injections with limited relief. She is also undergone Synvisc injections with more robust relief. Today, she reports significant increase in her right knee pain. She reports thatthe right leg has become increasingly symptomatic since Synvisc injection in August. She denies any redness, swelling, fever, chills. She reports that the Synvisc injection was actually very helpfulfor her knee pain. She now localizes her pain to the proximal tibia radiating down the sousa to the level of the ankle. She reports the pain makes it difficult for her to ambulate or weight-bear. She does report an aching, gnawing pain at rest. She reports the pain becomes more sharp when she tries to ambulate.. She reports that several months ago she broke both bones in her left leg. She was treated in outside hospital and did not require surgery. She reports feeling as though she does not have a good leg. She has been taking [id number] analgesics, with limited relief. QUESTIONNAIRE RESPONSES: General Health, Prior Treatments, PreExisting Condition, Health Habits, About You 09/30/2019 PROMIS-10 General Health Fair PROMIS-10 Quality of Life Poor PROMIS-10 Physical Health Poor PROMIS-10 Mental Health Poor PROMIS-10 Social Activity Poor PROMIS-10 Everyday Activities A little PROMIS-10 Pain 8 PROMIS-10 Fatigue Moderate PROMIS-10 Social Roles Poor PROMIS-10 Anxious or Depressed Always PROMIS PHYSICAL SCORE (range 16-68) 29.6 PROMIS MENTAL SCORE (range 21-68) 21.2 Treatments Tried Heat and ice therapy, Physical therapy, Medicines applied on the skin (topical) Prior Surgery - KOOS JR Scores 0 TKA Grade 2 Alzheimers or dementia - Cirrohosis or liver disease - HIV/AIDS - Pain in more than one joint in legs - Back or neck pain - Heart attack - Heart failure - Unclog/bypass leg arteries - Stroke, blood clot, TIA - Difficulty moving arm/leg - Asthma - Emphysema, chronic bronchities, or COPD - Stomach ulcers/peptic ulcer disease - Diabetes - Diabetes caused problems with kidneys - Diabetes caused problems with eyes - Poor kidney function - Rheumatic condtions - Cancer - Weight (lbs) - Height (feet) - Height (Inches) - BMI - Ever used tobacco products - Tobacco frequency - WHO - Tobacco Advice - Ever used alcoholic beverages - Alcohol frequency - WHO - Alcohol Advice - Live Alone - Marital situation - Schooling - Combined Household Income - # People Supported - [place], , - Race - Health Literacy - Currently working - Current job situation - [employer] Response 09/30/2019 KOOS JR Scores 0 ASES VAS-LEFT - ASES ADL-LEFT ARM - ASES LEFT ARM - Spine [employer] Response 09/30/2019 KOOS JR Scores 0 ALLERGIES Allergies Allergen Reactions ??? Azithromycin Shortness Of Breath ??? Adhesive Tape Rash ??? Amoxicillin Nausea Only ??? Rizatriptan ??? Sertraline ??? Sulfamethoxazole ??? Sulfamethoxazole-Trimethoprim ??? Tramadol Nausea Only ??? Trimethoprim ??? Venlafaxine ??? Wheat Bran Rash ??? Wheat Flour Rash ??? Wheat Germ Oil Rash ??? Wheat Starch Rash Allergies to metals: none. SOCIAL HISTORY: reports that she has been smoking cigarettes. She has been smoking about 0.50 packsper day. She has never used smokeless tobacco. She reports that she does not drink alcohol or use drugs. SIGNIFICANT MEDICAL COMORBIDITIES: Patient Active Problem List Diagnosis Code ??? Chronic venous insufficiency I87.2 ??? Celiac disease K90.0 ??? 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 Protein C deficiency D68.59 ??? Right knee pain M25.561 ??? 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 Neurodermatitis L28.0 ??? Spinal stenosis of lumbar region M48.061 ??? Intermittent claudication I73.9 ??? Chronic deep vein thrombosis of left femoral vein I82.512 ??? Tobacco dependence F17.200 ??? PAD (peripheral artery disease) I73.9 ??? Anticoagulated on warfarin Z79.01 ??? Bursitis of right shoulder M75.51 ??? Carpal tunnel syndrome of right wrist G56.01 ??? Chronic pain disorder G89.4 ??? Depressive disorder F32.9 ??? Diabetes E11.9 ??? Diabetic peripheral neuropathy E11.42 ??? Gastroesophageal reflux disease K21.9 ??? History of pulmonary embolism Z86.711 ??? Hyperlipidemia E78.5 ??? Medial epicondylitis of elbow, left M77.02 ??? Migraine G43.909 ??? Nocturnal leg cramps G47.62 ??? Non-intractable cyclical vomiting with nausea R11.15 ??? Obesity E66.9 ??? Smoker F17.200 ??? 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 Leg edema, left R60.0 VITALS: BP Readings from Last 1 Encounters: 09/30/19 138/62 Pulse Readings from Last 1 Encounters: 09/30/19 (!) 102 Height: 157.5 cm (5' 2)(reported) Weight: 64.4 kg (142 lb)(reported) Body mass index is 25.97 kg/m??. PHYSICAL EXAM: Constitution: Janna Junior sits in the clinic today alert, appears stated age and cooperative. She is alert and oriented. I have made the following determinations: Knee Exam: Right Prior surgery on this joint: No Knee ROM: Extension:0 Flexion: 120 Alignment: 0-4 degrees Varus Stability: A/P Translation <5mm. Varus (lateral stability) <5mm Valgus (medial stability) <5mm Extension La degrees or less Radiographic evidence of joint damage: [0= normal; 1=minimal ; 2= some osteophytes , some narrowing ; 3= moderate osteophytes, significantnarrowing, mild deformity; 4= large osteophytes, marked narrowing, obvious deformity]: 2= some osteophytes, some narrowing Patella Tracking: Normal Skin Integrity: Normal Pulses Palpable: Right PT: Yes Right DP:Yes Motor/Sensory: Distal Motor: Normal Distal Sensory: Normal Quadriceps Strength: 4 Knee Effusion: None. Ecchymosis: none Patella: Patellar apprehension test: negative Patellar compression test: positive Tenderness: Lateral joint line, lateral proximal tibia IMAGING: X-rays of the right knee demonstrate shows DJD changes, likely chronic. Stable enchondroma in the right proximal tibia. ASSESSMENT AND PLAN:Ms. Junior is a 63 y.o. year old female with moderate osteoarthritis of her right knee. Reviewed patient's physical exam findings and imaging with her. We discussed that she does have bilateral knee osteoarthritis, worse in the medial compartments. We again discussed conservative treatment options including activity modification, use of a brace, ice, physical therapy, oral analgesics. Given that she localizes her pain more to the lateral proximal tibia, we will pursue repeat MRI to ensure that there is been no change in her enchondroma. I suspect that her pain is likely a result of overuse due to favoring the right leg after the fractures of the right leg, however we will rule out the enchondroma as the source of pain. Right knee MRI was ordered. She will complete the study ather convenience. She will return to clinic as indicated pending MRI results, on an as-needed basis if symptoms persist, progress, for injection. Questions were solicited and answered. She agrees withthis plan. LD Echavarria documented in this encounter Plan of Treatment Not on file documented as of this encounter Results * NM Bone Scan 3 Phase (10/15/2019 11:44 AM EST) Anatomical Region Laterality Modality Nuclear Medicine Impressions 10/15/2019 2:21 PM EST 1. ??Focal area of soft tissue hyperemia and persistent intense focal MDP uptake in the right posterior lateral tibial plateau is suspicious for subchondral stress injury. Consider MRI for further characterization. 2. ??Mildly MDP avid enchondroma in the right proximal tibia. 3. ??Focal area of soft tissue hyperemia and persistent moderate degree of focal MDP uptake in the left posterior medial tibial plateau which may represent an additional site of subchondral stress injury versus focal degenerative change. 4. ??Focal area of soft tissue hyperemia and persistent moderate degree of focal MDP uptake in the left distal femur intercondylar region, likely due to focal degenerative change. Thank you for letting us participate in the care of this patient. For questions regarding this report, please contact the number below. ? Electronically signed by: Randall Loomis [facility] ([phone]), at 10/15/2019 2:21 PM Narrative 10/15/2019 2:21 PM EST EXAMINATION: NM BONE SCAN 3 PHASE CLINICAL HISTORY: Bone cyst right proximal tibial lesion, likely enchondroma, with new increased pain at site. assess metabolic activity of lesion. TECHNIQUE: Immediately following the intravenous administration of 25 mCi of Tc-99m MDP, sequential images of perfusion to the knees were obtained at 2 second intervals for 60 seconds in the anterior and posterior projections. Five minutes later, blood pool images were obtained of the knees in the anterior, posterior, lateral projections. Three hours later, a bone scan of the knees was performed with images obtained in the anterior, posterior, and lateral projections. COMPARISON: None FINDINGS: Early flow and blood pool phase images: Focal area of soft tissue hyperemia overlying the lateral tibial plateau. Mild foci of soft tissue hyperemia in the medial tibial plateau and in the intercondylar left distal femur. Delayed bone phase images: Right knee: Focal area of intense tracer uptake in the posterior lateral tibial plateau where there is focal degenerative change and subchondral cyst formation seen on CT. Mildly increased tracer uptake associated with the chondroid matrix lesion in the right proximal tibia, consistent with an enchondroma. Left knee: Focal area of moderately increased tracer uptake in the posterior medial tibial plateau where there is focal degenerative change and subchondral cyst formation seen on CT. Small focal area of moderately increased tracer uptake in the intercondylar distal femur where there is focal degenerative change seen on CT. Procedure Note Randall Loomis MD - 10/15/2019 EXAMINATION: NM BONE SCAN 3 PHASE CLINICAL HISTORY: Bone cyst right proximal tibial lesion, likely enchondroma, with new increased painat site. assess metabolic activity of lesion. TECHNIQUE: Immediately following the intravenous administration of 25 mCi of Tc-99mMDP, sequential images of perfusion to the knees were obtained at 2 secondintervals for 60 seconds in the anterior and posterior projections. Five minutes later, blood pool images were obtained of the knees in the anterior, posterior, lateral projections. Three hours later, a bone scan of the knees was performed with imagesobtained in the anterior, posterior, and lateral projections. COMPARISON: None FINDINGS: Early flow and blood pool phase images: Focal area of soft tissuehyperemia overlying the lateral tibial plateau. Mild foci of soft tissue hyperemiain the medial tibial plateau and in the intercondylar left distal femur. Delayed bone phase images: Right knee: Focal area of intense tracer uptake in the posterior lateraltibial plateau where there is focal degenerative change and subchondral cystformation seen on CT. Mildly increased tracer uptake associated with the chondroidmatrix lesion in the right proximal tibia, consistent with an enchondroma. Left knee: Focal area of moderately increased tracer uptake in theposterior medial tibial plateau where there is focal degenerative change andsubchondral cyst formation seen on CT. Small focal area of moderately increasedtracer uptake in the intercondylar distal femur where there is focaldegenerative change seen on CT. IMPRESSION 1. Focal area of soft tissue hyperemia and persistent intense focal MDPuptake in the right posterior lateral tibial plateau is suspicious forsubchondral stress injury. Consider MRI for further characterization. 2. Mildly MDP avid enchondroma in the right proximal tibia. 3. Focal area of soft tissue hyperemia and persistent moderate degree offocal MDP uptake in the left posterior medial tibial plateau which may representan additional site of subchondral stress injury versus focal degenerativechange. 4. Focal area of soft tissue hyperemia and persistent moderate degree offocal MDP uptake in the left distal femur intercondylar region, likely due tofocal degenerative change. Thank you for letting us participate in the care of this patient. Forquestions regarding this report, please contact the number below. Janina Solorzano MD IMG NM ORDERABLES documented in this encounter Visit Diagnoses Diagnosis Enchondroma of right tibia- Primary Enchondroma of right tibia documented in this encounter Care Teams Vp Medical Relationship Specialty Start Date End Date Jerman Powell MD [address] [facility] [address] [place] [address] PCP - General 05/30/11 05/30/21 documented as of this encounter
--- OUTSIDE RECORDS SUMMARY | 2024-03-21 14:00 | XMS_ITS | Encounter Summary ---
Author Organization [facility] Address [facility] [place] [address] Care Team Providers Care Student Teaching Coordinator Name Role Phone Jerman Powell MD Primary Care Provider [phone] Reason for Visit * Reason Onset Date Comments Other 01/06/2019 Encounter Details Date Type Department Care Team (Late st Contact Info) Description 01/06/2019 Telephone [place] [id number] Barbara, LD Jacobsen [facility] DR [place] [address] Other Social History Tobacco Use Types Packs/Day [...] encounter Miscellaneous Notes * Telephone Encounter - Apryl Winslow - 01/06/2019 2:35 PM EDT Patient scheduled * Telephone Encounter - Rashida Mendieta - 01/06/2019 10:44 AM EDT Patient's (Grupo) called in to let Alyssa Jimenez know that the injection did not do anything and that Janna can barley put any weight on the Left leg. Grupo would like to speak with Alyssa Barbara directly to discuss the injection. Best contact number for the patient is: ok to [facility]. Who is calling: patient/physical or occupational therapist? Patient's ; Grupo Best call back number: Best time to call back between 8:00 am & 5:00 pm: Anytime Can we leave a message? yes Where do they have their PT/OT? [facility] [address] [place] [id number] Therapy Office Therapy Office What they need: Physical Therapy Referral (This message should be forwarded to the [facility] pool.) documented in this encounter Plan of Treatment Not on file documented as of this encounter Results * CRP, acute inflammation (01/14/2019 1:43 PM EDT) CRP 4.1 <=4.9 mg/L [facility] Blood specimen (specimen) 01/14/2019 1:43 PM EDT 01/14/2019 1:55 PM EDT Narrative Resulting Agency Comment Spec In Lab Uriah Sales MD CHEMISTRY ORDERABLES Performing Organization Address [facility] Co de Phone Number [facility] [place] [address] * (ABNORMAL) Sedimentation rate (01/14/2019 1:43 PM EDT) Sed Rate 39(H) 0 - 20 mm/hr [facility] Blood specimen (specimen) 01/14/2019 1:43 PM EDT 01/14/2019 1:55 PM EDT Narrative Resulting Agency Comment Spec In Lab Uriah Sales MD HEMATOLOGY ORDERABLE S Performing Organization Address City/[facility]/ZIP [place] [address] documented in this encounter Visit Diagnoses Diagnosis Knee strain, left, initial encounter- Primary documented in this encounter Care Teams Student Teaching Coordinator Relationship Specialty Start Date End Date Jerman Powell MD [address] [facility] [address] [place] [address] PCP - General 05/30/11 05/30/21 documented as of this encounter
--- OUTSIDE RECORDS SUMMARY | 2024-03-21 14:00 | XMS_ITS | Encounter Summary ---
Author Organization [facility] Address [facility] [place] [address] Care Team Providers Care Toddler Guide Name Role Phone Jerman Powell MD Primary Care Provider [phone] Reason for Visit * Reason Comments Bilateral Knee Pain two weeks ago twiste d on left knee * Consultation (Routine) - Specialty Diagnoses / Procedures Referred By Candelario t Referred To Contact Orthopaedics Diagnoses bilateral chronic knee pain and new left knee twisting injury 2 weeks ago. Jerman Powell MD [address] [address] [facility] [address] [place] [id number] Referral ID Status Reason Start Date Expiration Date V isits Requested Visits Authorized [id number] Consult, Test & Treat 12/30/2018 12/30/2019 1 1 Encounter Details Date Type Department Care Team (Late st Contact Info) Description 2018 4:00 PM EDT Office [place] [address] Barbara, LD Jacobsen [facility] [place] [address] Chronic instability of left knee (Primary Dx); Knee strain, left, initial encounter Social History Tobacco Use Types Packs/Day Years [...] Sign Reading Time Taken Comments Blood Pressure 113/41 2018 3:21 PM EDT Pulse 96 2018 3:21 PM EDT Temperature - - Respiratory Rate - - Oxygen Saturation - - Inhaled Oxygen Concentration - - Weight 70.3 kg (155 lb) 2018 3:21 PM EDT v erbal Height 157.5 cm (5' 2) 2018 3:21 PM EDT v erbal Body Mass Index 28.35 2018 3:21 PM EDT documented in this encounter Progress Notes * Barbara, LD Jacobsen - 2018 4:00 PM EDT Images from the original note were not included. Department of Orthopaedics Division of Adult Joint Reconstructive Surgery CHIEF COMPLAINT: Chief Complaint Patient presents with ??? Bilateral Knee Pain two weeks ago twisted on left knee ARTHROPLASTY HISTORY/PREVIOUS KNEE SURGERY: 1. none Janna was referred from Janina Solorzano MD [facility] [place] [address] I.D.: Janna Junior is a 63 y.o. year old female being seen today to discuss her left knee. Her history and physical exam were reviewed in detail. She states the knee has been symptomatic for weeks. The pain is predominantly medial, anterior. There was inciting trauma/injury. He dog ran into her lateral leg, forcing her knee medially. She feelsthat her knee will give out on her. She does describe hip pain. She feels that her knee pain is keeping her from walking or standing prolonged periods. Aggravating factors include activity, stair climbing, deep knee bending, getting up from a chair. Alleviating factors include rest. Janna has pain at night.. She can weight bear on the left leg anddoes use assistive devices. She has not tried physical therapy. She has not had injections into the joint: She has NSAIDs/Pain meds: NSAID, Tylenol used but not effective. Hydrocodone with some relief She has brace treatment: sleeve style brace feels too tight Ms. Junior denies fevers/chills/headache/chest pain/shortness of breath/abdominal pain/nausea or vomiting/weight changes She does not endorse a history of DVT/PE or clotting disorder. QUESTIONNAIRE RESPONSES: General Health, Prior Treatments, PreExisting Condition, Health Habits, About You 2018 PROMIS-10 General Health Poor PROMIS-10 Quality of Life Good PROMIS-10 Physical Health Poor PROMIS-10 Mental Health Fair PROMIS-10 Social Activity Good PROMIS-10 Everyday Activities A little PROMIS-10 Pain 8 PROMIS-10 Fatigue Severe PROMIS-10 Social Roles Fair PROMIS-10 Anxious or Depressed Often PROMIS PHYSICAL SCORE (range 16-68) 26.7 PROMIS MENTAL SCORE (range 21-68) 38.8 Treatments Tried Heat and ice therapy Prior Surgery - Alzheimers or dementia No Cirrohosis or liver disease No HIV/AIDS No Pain in more than one joint in legs No Back or neck pain Yes Heart attack No Heart failure No Unclog/bypass leg arteries No Stroke, blood clot, TIA No Asthma No Emphysema, chronic bronchities, or COPD - Stomach ulcers/peptic ulcer disease No Diabetes Yes Diabetes caused problems with kidneys No Diabetes caused problems with eyes No Poor kidney function No Rheumatic condtions No Cancer No Weight (lbs) 155 Height (feet) 5 feet Height (Inches) 3 BMI 27.45 (Overweight) Ever used tobacco products Yes Tobacco frequency Daily or almost daily WHO - Tobacco Advice 6 (You are at risk of health and other problems from your current pattern of tobacco use.) Ever used alcoholic beverages Yes Alcohol frequency Once or twice WHO - Alcohol Advice 2 (You are at low risk of health and other problems from your current pattern of use.) Live Alone No Marital situation Schooling Some high school, but did not graduate Combined Household Income $25,000 to less than $35,000 # People Supported 2 [place], , No, not [place]ian// Race White Health Literacy Extremely Currently working Yes Current job situation Part-time due to health [facility] [place] [facility] 03/26/2018 ASES VAS-LEFT 3 ASES ADL-LEFT ARM 9 ASES LEFT ARM 50 No flowsheet data found. ALLERGIES Allergies Allergen Reactions ??? Adhesive Tape Rash ??? Wheat Bran Rash ??? Wheat Flour Rash ??? Wheat Germ Oil Rash ??? Wheat Starch Rash Allergies to metals: none. SOCIAL HISTORY: reports that she has been smoking cigarettes. She has been smoking about 0.50 packsper day. She has never used smokeless tobacco. She reports that she does not drink alcohol or use drugs. 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 Non-intractable cyclical vomiting with nausea G43.A0 ??? Obesity E66.9 ??? Smoker F17.200 ??? 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 Leg edema, left R60.0 VITALS: BP Readings from Last 1 Encounters: 12/31/18 113/41 Pulse Readings from Last 1 Encounters: 12/31/18 96 Height: 157.5 cm (5' 2)(verbal) Weight: 70.3 kg (155 lb)(verbal) Body mass index is 28.35 kg/m??. PHYSICAL EXAM: Constitution: Janna sits in the clinic today alert, appears stated age and cooperative. The patient is alert and oriented. I have made the following determinations: Knee Exam: Left Prior surgery on this joint: No Knee ROM: Extension:0 Flexion: 110 Alignment: 0-4 degrees Varus Stability: A/P Translation <5mm Varus (lateral stability) <5mm Valgus (medial stability) <5mm Extension La degrees or less Radiographic evidence of joint damage: [0= normal; 1=minimal ; 2= some osteophytes , some narrowing ; 3= moderate osteophytes, significantnarrowing, mild deformity; 4= large osteophytes, marked narrowing, obvious deformity]: 2= some osteophytes, some narrowing Patella Tracking: Normal Skin Integrity: Normal Pulses Palpable: Left PT:Yes Left DP:Yes Motor/Sensory: Distal Motor:Normal Distal Sensory: Normal Quadriceps Strength:4 Knee Effusion: 1+ Ecchymosis: none Patella: Patellar apprehension test: positive Patellar compression test: positive Tenderness: medial joint line and MCL IMAGING: X-rays of the left knee demonstrate shows DJD changes, likely chronic. ASSESSMENT AND PLAN: Ms. Junior is a 63 y.o. year old female with moderate osteoarthritis of her left knee, symptoms most consistent with MCL strain. Questions solicited and answered. Patient voiced understanding to info/instructions given. Treatment options discussed including Cortisone injection discussed, Exercise options discussed andencouraged, brace options discussed. Radiology studies and anatomy of joint knee reviewed. We reviewed the multiple treatment options available to her for this condition and the hurtful but non-harmful nature of arthritis. Both operative and nonoperative options were discussed as well as the pure elective nature of each. I reviewed the concept of the arthritis ladder with its step-nolasco approach, rising in invasiveness based on either previous response or symptom severity/impact on lifestyle. After discussion of risks and benefits, she would like to proceed with injection. Please see procedure note below. She would also like to try a hinged knee brace for more stability. Referral provided. PROCEDURE NOTE: left knee Injeciton A time-out was performed and the left knee was confirmed to be the site of injection. The patient was confirmed to have no allergies to betadine, local anesthetics, or corticosteroids. The patient was reminded that blood glucose can be transiently elevated by the corticosteroid injection. The patient was counseled about the potential risks of the procedure, including infection, bleeding and incomplete relief of symptoms. The patient provided consent. I also discussed with the patient that cortisone is not healthy for muscle tendons or cartilage and that there is an increased risk with repeated injections. The skin was prepped widely over the left knee. Then, using sterile technique, a solution consisting of 4cc 1% lidocaine (40 mg), and 1 cc Kenalog (40 mg) was injected into the left knee. The needle was felt to slide into the capsule and the mixture flowed freely. The skin was cleaned and a Band-Aid was applied. The patient tolerated the procedure well. She will return to clinic on an as needed basis if symptoms persist or progress. Questions were solicited and answered. She agrees with this plan. LD Echavarria documented in this encounter Plan of Treatment Not on file documented as of this encounter Visit Diagnoses Diagnosis Chronic instability of left knee- Primary Other joint derangement, not elsewhere classified, lower leg Knee strain, left, initial encounter documented in this encounter Administered Medications Inactive Administered Medications - up to 3 most recent administrations Medication Order MAR Action Action Date Dose Rate Site lidocaine (XYLOCAINE) 10 mg/mL (1 %) injection 40 mg 40 mg, Subcutaneous, ONCE, 1 dose, On Sun01/01/19 at 1530, Routine Given 01/01/2019 3:09 PM EDT 40 mg triamcinolone acetonide (KENALOG-40) injection 40 mg 40 mg, Intramuscular, ONCE, 1 dose, On Sun01/01/19 at 1530, Routine Given 01/01/2019 3:09 PM EDT 40 mg documented in this encounter Care Teams Toddler Guide Relationship Specialty Start Date End Date Jerman Powell MD [address] [facility] [place] [address] PCP - General 05/30/11 05/30/21 documented as of this encounter
--- OUTSIDE RECORDS SUMMARY | 2024-03-21 14:00 | XMS_ITS | Encounter Summary ---
Author Organization [facility] [place] [address] Care Team Providers Care Electric Stove Installer Name Role Phone Jerman Powell MD Primary Care Provider [phone] Reason for Referral * Consultation (Routine) - Closed Specialty Diagnoses / Procedures Referred By Contac t Referred To Contact Neurology Diagnoses Iliac vein thrombosis, left Neuropathy Atherosclerosis of [place] artery of both lower extremities, with unspecified presence of clinical manifestation Mallika Jimenez APRN [facility] [place] [address] [facility] [address] [place] [phone] Referral ID Status Reason Start Date Expiration Date V isits Requested Visits Authorized [id number] Closed Consult, Test & Treat 08/06/2018 08/06/2019 1 1 Encounter Details Date Type Department Care Team (Latest Contact Info) Description 08/06/2018 4:00 PM EST Office [place] [address] Mallika Jimenez APRN [facility] [place] [address] Iliac vein thrombosis, left; Neuropathy; Atherosclerosis of [place] artery of both lower extremities, with unspecified presence of clinical manifestation Social History Tobacco Use Types Packs/Day Years [...] Sign Reading Time Taken Comments Blood Pressure 146/61 08/06/2018 3:32 PM EST Pulse 86 08/06/2018 3:32 PM EST Temperature - - Respiratory Rate - - Oxygen Saturation - - Inhaled Oxygen Concentration - - Weight 68 kg (150 lb) 08/06/2018 3:32 PM EST rep orted Height 157.5 cm (5' 2) 08/06/2018 3:32 PM EST r eported Body Mass Index 27.44 08/06/2018 3:32 PM EST documented in this encounter Progress Notes * Mallika Jimenez, LEGAL SPECIALIST - 08/06/2018 4:00 PM EST F/u venous duplex and RAFI's 62 yo diabetic current 1/2 PPD smoker with 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 Known PAD with L>R claudication. C/o left foot pain for one year, burning, sharp shooting pain up leg, numbness. C/o swelling worse at end of day. Unable to wear compression because painful Relief with elevation. State she saw someone who recommend nerve block in left ankle for pain. Denies rest pain, tissue loss, SOB, TIa's C/o occ chest discomfort. She was suppose to have stress test but decided against it. She takes Coumadin life long. History of DM. Continues to smoke. PMHx: Patient Active Problem List Diagnosis ??? Leg edema, left ??? Anticoagulated on warfarin ??? Depressive disorder ??? Gastroesophageal reflux disease ??? Hyperlipidemia ??? Migraine ??? Obesity ??? Smoker ??? PAD (peripheral artery disease) ??? Intermittent claudication ??? Chronic deep vein thrombosis of left femoral vein ??? Tobacco dependence ??? Non-intractable cyclical vomiting with nausea ??? Bursitis of right shoulder ??? Nocturnal leg cramps ??? Ulnar neuropathy of left upper extremity ??? Spinal stenosis of lumbar region ??? Medial epicondylitis of elbow, left ??? Carpal tunnel syndrome of right wrist ??? Diabetic peripheral neuropathy ??? Diabetes ??? Chronic pain disorder ??? History of pulmonary embolism ??? Dermatitis herpetiformis ??? Neurodermatitis ??? Chronic venous insufficiency ??? May-Thurner syndrome Overview Note: ??? Protein C deficiency ??? Right knee pain ??? Celiac disease PSxHx: Past Surgical History: Procedure Laterality Date ??? CHOLECYSTECTOMY, LAPAROSCOPIC 03/18/1992 ??? VASCULAR SURGERY Left 10/01/2009 Balloon angioplasty and stenting of left common iliac vein stenosis ??? 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 Social Hx: Social History Tobacco Use ??? Smoking status: Current Every Day Smoker Packs/day: 0.50 ??? Smokeless tobacco: Never Used Substance Use Topics ??? Alcohol use: No Medications: Medications 03/27/18 1339 Medication Sig Taking? aspirin 81 mg Tablet, Delayed Release (E.C.) Take 81 mg by mouth daily. Miscellaneous Medical Supply [facility] 1 Units. dapsone 100 mg Tablet Take 75 mg by mouth. gabapentin (NEURONTIN) 300 mg Capsule Take 300 mg by mouth. warfarin (COUMADIN) 5 mg Tablet Take 5 mg by mouth. ONETOUCH ULTRA TEST Strip TEST TWO TIMES A DAY chlorhexidine (PERIDEX) 0.12 % Mouthwash diphenoxylate-atropine (LOMOTIL) 2.5-0.025 mg Tablet ONE TOUCH DELICA 33 gauge Misc TEST TWO TIMES A DAY loperamide (IMODIUM) 2 mg Capsule triamcinolone (KENALOG) 0.1 % Lotion HYDROcodone-acetaminophen (NORCO) 10-325 mg Tablet Take 1 tablet by mouth every 6 hours as needed for Pain. baclofen (LIORESAL) 10 mg Tablet Take 10 mg by mouth 2 times daily. metFORMIN (GLUCOPHAGE) 1,000 mg tablet Take 1,000 mg by mouth 2 times daily (with meals). amitriptyline (ELAVIL) 10 mg tablet Take 20 mg by mouth nightly. MAGNESIUM ORAL Take by mouth daily. dapsone (ACZONE) 25 mg tablet Take 2 tablets by mouth 2 times daily. omeprazole (PRILOSEC) 20 mg capsule Take 20 mg by mouth nightly. gabapentin (NEURONTIN) 300 mg capsule Take 1,500 mg by mouth daily. Allergies: Allergies Allergen Reactions ??? Adhesive Tape Rash ??? Wheat Bran Rash ??? Wheat Flour Rash ??? Wheat Germ Oil Rash ??? Wheat Starch Rash Physical Exam: General: NAD, appears well Neuro: Alert and oriented, motor sensory grossly intact Lungs: CTA Heart: RRR Abd: Soft, NT, ND, no palpable pulsatile masses Extremity - [place], warm, no ulceration, brisk capillary refill, left foot and calf edema hyperpigmentation Vascular: R L Carotid 2/2 bruit (n) 2/2 bruit (n) Radial 2/2 2/2 Femoral 2/2 2/2 Popliteal -/2 -/2 DP 2/2 -/2 PT -/2 -/2 Venous duplex LEFT: There is chronic appearing non-occlusive thrombus in one of the paired femoral veins from the prox through distal thigh into the popliteal vein. ?? Otherwise, patent common femoral vein and popliteal vein with spontaneous, respirophasic Doppler waveforms that respond normally to augmentation maneuvers. The common femoral vein, saphenofemoral junction, femoral vein through the thigh and popliteal vein are fully compressible. Posterior tibial and peroneal veins are patent by color flow but were not adequately visualized to exclude non-occlusive thrombus due to heavy calcification of the tissue in the calf. ? Interpretation: ?? LEFT: Non-occlusive thrombus in one of the paired femoral??veins from the prox through distal thigh into the popliteal vein with no identifiable change compared to previous exam done 08/07/2017. Findings suggest chronic DVT, however, superimposed acute thrombus cannot be excluded by ultrasound. Cannot exclude non-occlusive DVT in the calf due to sub-optimal visualization. RAFI's Right ?Pressure (mm Hg) ?? RAFI ??Waveform ?TBI ?? Brachial Artery ?133 ? Dorsalis Pedis (Ankle) Artery ?92 ?0.69 ??[place]- Biphasic ? Posterior Tibial (Ankle) Artery ??96 ?0.72 ??[place]-Biphasic ? Great Toe ?69 ? 0.52 ? Left ? Pressure (mm Hg) ?? RAFI ??Waveform ?TBI ?? Brachial Artery ?132 ? Dorsalis Pedis (Ankle) Artery ?92 ?0.69 ??[place]- Biphasic ? Posterior Tibial (Ankle) Artery ??91 ?0.68 ??[place]-Biphasic ? Great Toe ?50 ? 0.38 ? Interpretation: ?? RIGHT: Moderate lower extremity arterial occlusive disease. No significant change compared to previous exam. ?? LEFT: Moderate lower extremity arterial occlusive disease. No significant change compared to previous exam Assessment/Plan: 62 yo diabetic female, current smoker with h/o May Thurner's s/p iliac stenting, PAD with claudiciton RAFI's stable Venous duplex stable. Left foot neuropathy for DM, edema, low back problems. Referral to neurology for evaluation and treatment of left foot neuropathic pain. Continueoptimal medical amnagement with Coumadin, ASA and statin. Smoking cessation encouraged. Compressionand elevation of the LLE. DM control. RTC 9 months with ABIs/toe pressures and L LE venous duplex and iliac vein stent duplex documented in this encounter Plan of Treatment Scheduled Referrals Name Type Priority Associated Diagnoses Orde r Schedule Referral to Neurology Outpatient Referral Routine Iliac vein thrombosis, left Neuropathy Atherosclerosis of [place] artery of both lower extremities, with unspecified presence of clinical manifestation Ordered: 08/06/2018 documented as of this encounter Visit Diagnoses Diagnosis Iliac vein thrombosis, left Acute venous embolism and thrombosis of deep vessels of proximal lower extremity Neuropathy Mononeuritis of unspecified site Atherosclerosis of [place] artery of both lower extremities, with unspecified presence of clinical manifestation documented in this encounter Care Teams Electric Stove Installer Relationship Specialty Start Date End Date Jerman Powell MD [address] [facility] [address] [place] [address] PCP - General 05/30/11 05/30/21 documented as of this encounter
--- OUTSIDE RECORDS SUMMARY | 2024-03-21 14:00 | XMS_ITS | Encounter Summary ---
[place] [address] Care Team Providers Care Telepathist Name Role Phone Renzo Castano APRN Primary Care Provider [phone] Reason for Referral * Consultation (Priority 2) - Closed Specialty Diagnoses / Procedures Referred By Contac t Referred To Contact Dermatology Diagnoses Calcinosis cutis Khoi Crawford MD [facility] [place] [address] [facility] Dermatology [address] [place] [address] Referral ID Status Reason Start Date Expiration Date V isits Requested Visits Authorized [id number] Closed Consult, Test & Treat 03/12/2023 03/11/2024 1 1 Reason for Visit * Consultation (Routine) - Closed Specialty Diagnoses / Procedures Referred By Contac t Referred To Contact Rheumatology Diagnoses Calcinosis cutis Latia Osorio MD [address] [place] [id number] [facility] Rheumatology [address] [place] [phone] Referral ID Status Reason Start Date Expiration Date V isits Requested Visits Authorized [id number] Closed Consult, Test & Treat PCP Updated and/or Approved 03/04/2023 03/03/2024 6 6 Encounter Details Date Type Department Care Team (Late st Contact Info) Description 03/12/2023 9:00 AM EDT Office [place] [address] Grant Leos MD [facility] [place] [address] Khoi Crawford MD [facility] [place] [address] Calcinosis cutis; Osteopenia, unspecified location; Warfarin anticoagulation; Anemia, unspecified type Social History Tobacco Use Types Packs/Day Years [...] Sign Reading Time Taken Comments Blood Pressure 137/53 03/12/2023 8:52 AM EDT Pulse 96 03/12/2023 8:52 AM EDT Temperature - - Respiratory Rate - - Oxygen Saturation 93% 03/12/2023 8:52 AM EDT Inhaled Oxygen Concentration - - Weight 65.1 kg (143 lb 9.6 oz) 03/12/2023 8:52 A M EDT Height - - Body Mass Index 26.26 01/10/2023 9:33 AM EDT documented in this encounter Progress Notes * Khoi Crawford MD - 03/12/2023 9:00 AM EDT Rheumatology Outpatient Consultation Note Reason for Consult: The patient is seen at the request of Latia Osorio for evaluation and treatment of 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 She reports that she has calcium buildup in her left leg since around 10 years. She denies any deposition any place else. States she sun-anna easy. Denies raynaud's, symptoms of sclerodactyly, active rashes. She reports left distal leg and foot pain which is worse on walking. Mornings are usually a good time. It has been present since many years before but worse since jun. Also reports numbness in the left foot. Notices swelling at the end of the day. She reports rotator cuff problem in left shoulder since many years, also chronic low back pain which is present on exertion, no nighttime pain. She is on hydrocodone. No other joint pain. She gets blisters on her face and forearms whichshe attributes to celiac disease which responds to topical steroids and sometimes minocycline. She is also gluten intolerant since many years. Never had a GI biopsy. She does get oral sores 6-7/year which she attributes to dentures and celiac disease. She reports multiple clots in legs, arms and lungs and one miscarriage. She has been referred to Dr. Albert in osteoporosis clinic by her PCP. ROS: General (-)fevers, (-)chills, (-)night sweats, (-)wt loss/gain. HEENT (-)inflammatory eye disease, (-)vision loss, (-)epistaxis, (-)bleeding gums, (-)oral ulcers, (-)dry eyes, (-)dry mouth, (-)dysphagia, (-)GERD, (-)photo sensitivity CVS (-)chest pain, (-)palpitations Pulm (-)shortness of breath, (-)RUBIO, (-)wheezes, (-)cough, (-)pleuritic pain GI (-)N/V, (-)abdominal pain, (-)hematochezia (-)hematuria, (-)dysuria MS (-)muscle weakness, (-)paralysis, (-)joint pain Endo (-)thyroid disorders, (-)diabetes Neuro (-)focal weakness, (-)paresthesias, (-)gait instability. Skin (-)Raynaud's, (-)rashes - no psoriasis Psych (-) mood disorder. 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 Some nodularity noted on lateral aspect of right leg, unable to pinch skin on bilateral legs (L>>R), has dryness of hands and maybe mild erythema noted on knuckles. Her modified Rodnan skin score is ~8 Cardiovascular: RR, (-)murmurs, rubs, or gallops. Lungs: Clear to auscultation bilaterally. (-)R/R/W Neuro: Alert and oriented x3. Strength 5/5 throughout Extremities: Shoulders: FROM, non-tender to palpation Elbows:FROM, (-)pain, (-)nodules Wrists: FROM, no swelling, non-tender Hands: No synovitis, no MCP compression tenderness, full claw and fist. Normal nailfold capillarieson capillaroscopy. No nail pitting. Heberden's and Eliazar's nodes present Hips: No tenderness Knees: (-)effusions, non-tender ROM Ankles: FROM, non-tender, no swelling Feet: no MTP compression tenderness, no toe splaying, bilateral pedal pulses present Laboratory Data: 02/14/2023 WBC 4.4 Hemoglobin 9.8 MCV 97 Platelet count 143 INR 2.5 Ca 9 Phosphorus 3 BUN 10 Creatinine 1 eGFR 62.1 Total protein 8.3 Albumin 3.4 Total bilirubin 0.4 Alkaline phosphatase 186 AST 34 ALT 35 TSH 3.42 Urine calcium less than 1 Studies: X-ray left foot 01/10/2023 FINDINGS: Marked osteopenia/osteoporosis. No fracture or dislocation is identified. No periostitis or trabecular sclerosis is seen to suggest a stress response. Minimal subchondral sclerosis and osteophyte formation at the first MTP joint consistent with mild degenerative change. Joint spaces are preserved. No erosions. Alignment at the Lisfranc joint is maintained. Longitudinal arch preserved. Posterior and plantar calcaneal spurs. Sheetlike soft tissue tissue ossification in the distal aspect of the lower leg again noted, present in 2009. IMPRESSION 1. Marked osteopenia/osteoporosis. Suggest DEXA scan for quantification if not previously obtained. 2. No acute fracture or radiographic evidence of stress reaction. If clinical concern for stress reaction or occult fracture, consider MRI for more sensitive assessment given the degree of osteopenia. Duplex 01/10/2023 Interpretation: Left: Patent external iliac and proximal common iliac vein without evidence of obstruction; stent margins not visualized. Remainder of common iliac vein and inferior vena cava were not visualized dueto overlying bowel gas. No identifiable significant change compared to previous exam 08/07/17 where iliac was examined on lower extremity venous duplex. CT 01/17/2022 Impression: No evidence of renal calculi, hydronephrosis nor hydroureter and there are no radiopaque calculi inthe urinary bladder. An endovascular stent is noted in the left common iliac vein. Atherosclerotic abdominal aorta as described above with mild fusiform dilatation of the inferior aspect. The common iliac arteries are calcified but not enlarged. Splenomegaly noted. Bone scan 10/15/2019 IMPRESSION 1. Focal area of soft tissue [...] stress injury versus focal degenerative change. 4. Focal area of soft tissue hyperemia and persistent moderate degree of focal MDP uptake in the left distal femur intercondylar region, likely due to focal degenerative change. Impression: Janna Junior is a 67 y.o. 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 She presents with induration of her left leg since around 10 years which she describes as calcium buildup, also associated with pain on weightbearing and exertion on her left leg. She also reports being sunburned easily which she attributes to her being redhead. She is known to have gluten intolerance (no GI biopsy done) and dermatitis herpetiformis [place]pro[place]. Her skin flareups are treated with topical steroids and minocycline. She denies symptoms of Raynaud's, GI dysmotility, telangiectasias, sclerodactyly, cardiopulmonary symptoms. On examination, she has varicosities noted on bilateral feet and ankle, woody induration along with hard nodules present in the subcutaneous region around entire left leg. Some nodularity notedon lateral aspect of right leg as well, with a mRSS of ~8. and also has dryness of hands and maybe mild erythema noted on knuckles. Her strength is normal. Labs with anemia, normal serum calcium phosphate product, mildly elevated alkaline phosphatase, normal urinary calcium. X-ray of the left foot with mild osteopenia/osteoporosis and Sheetlike soft tissue tissue ossification in the distal aspect of the lower leg again noted, present in 2009. She presents with longstanding isolated B/L leg skin induration and subcutaneous calcification (L>>>mild on the right leg) without any other obvious manifestations of limited or diffuse systemic sclerosis. This could definitely be a presenting symptom of CREST but the fact that it has beenpresent since the past 10 years without other manifestations points away from it, although possiblestill. Feel that we are dealing with 2 manifestations-1 is subcutaneous calcification/calcinosis cutis and the other 1 is skin sclerosis and whether that is a complication of extensive subcutaneous calcification is not clear to me. Based upon the etiology of calcium deposition, there are five subtypes of calcinosis cutis: dystrophic, metastatic, idiopathic, iatrogenic, and calciphylaxis. It does not look like she has metastatic, iatrogenic or calciphylaxis type. Dystrophic calcification is the most common type of calcinosis cutis which results from deposition of insoluble calcium salts into previously damaged tissue despite normal serum calcium and phosphorus levels. It occurs most frequently in patients with underlying autoimmune connective tissue diseases like systemic sclerosis (particularly in those with limited variant/CREST), dermatomyositis (juvenile DM > classic DM) SLE, UCTD, MCTD. Rarely described in patients with polymyositis and rheumatoid arthritis. Other associations include various forms of panniculitis, PCT, Genodermatoses (like pseudoxanthoma elasticum, Mead syndrome, Raheel-Danlos), cutaneous neoplasms, trauma, infection. Other likely possibilities include scleroderma mimics like scleredema, scleromyxedema, eosinophilicfasciitis, medication induced (although she is not on any inciting agents) and localized scleroderma. There is a case report of dystrophic calcinosis in eosinophilic fasciitis (PMID: 59754227). Interesting to note is that she has taken minocycline intermittently for dermatitis herpetiformis flareups and is also on warfarin for her coagulopathy and both of these are potential treatments for calcinosis cutis. I could not find any literature reporting the development of calcinosis cutis with the use of either of these medications. Also, porphyria cutanea tarda could cause calcinosis cutis and I wonder if her dermatitis herpetiformis is in fact PCT, chances are low since it was reportedly biopsy-proven to be DH. She also has dryness of her hands, likely from using detergents and it is not in a classical DM distribution but given the calcinosis cutis and its presence along with? Mild erythema of her knuckles, I will obtain a myositis panel. I will obtain other work-up as outlined below including x-rays of bilateral legs. I will also refer her to Rheum Derm clinic for consideration of askin biopsy to help us arrive at a diagnosis. Regarding her osteopenia/osteoporosis, could be from celiac disease which is a known association. I have asked her to start taking calcium and vitamin D supplementation and I will obtain a DEXA scan. She has been referred to osteoporosis clinic by her PCP already. Recommendations: -Labs: CBC, CMP, ESR, CRP, CK, UA, urinary calcium, PTH, C3, C4, total complements, TEX by IFA, SAMARA, dsDNA, myositis panel, SPEP, urine porphyrins, hep B, hep C, HIV, QuantiFERON, vitamin D, (A1c, INR as requested by patient) -Will obtain DEXA scan -X-ray bilateral legs -We will refer her to Rheum Derm clinic for consideration of a biopsy (I have reached out to the staff responsible for scheduling her, I will also reach out to Dr. Cleaning) -I have asked her to start calcium 1200 mg daily and vitamin D 2000 international units daily -I have asked her to obtain RAFI ordered by vascular surgery previously -Follow-up with osteoporosis clinic, Dr. Albert Follow up in 3 months, hopefully she would have seen dermatology by then The patient was seen and discussed with Dr Dafne Crawford MD Rheumatology Fellow Pager: [phone] CC: Latia Jo * Grant Leos MD - 03/12/2023 9:00 AM EDT The patient's history was reviewed, and I interviewed and examined the patient with Dr. Crawford. I agree with the summary, findings, and plan. It is a very curious clinical presentation with isolated and asymmetric lower extremity skin thickening (more pronounced on left side) and calcinosis cutis. While dermatosclerosis and calcinosis cutis have a broad differential diagnosis, the combination of these two features is not so common. Most likely candidate for such a combination is generally systemic sclerosis but patient does not seem to have consistent clinical features related to systemic sclerosis, especially the lack of skin sclerosis on the upper extremities and absence of Raynaud's. Syste lynette sclerosis mimics such as eosinophilic fasciitis, scleromyxedema or scleredema are some of the possibilities. Localized scleroderma such as morphea is in the differential diagnosis as well. Porphyria cutanea tarda can be associated with calcinosis cutis but not so much of skin thickening. I wondered about a drug-induced manifestation, especially related to warfarin. Patient has been on warfarin since the age of 19 years and warfarin is well-documented to cause calcification and calciphylaxisand skin necrosis. However, I am not sure it causes skin thickening. She needs a skin biopsy for clarification and I think a referral to dermatology rheumatology clinic would be most appropriate. Mean while, we can complete the lab work-up as described in Dr. Crawford's note. Grant Leos MD [employer] [place], [address] documented in this encounter Plan of Treatment Scheduled Referrals Name Type Priority Associated Diagnoses Order Schedule Referral to Dermatology Outpatient Referral Routine Calcinosis cutis Ordered: 03/12/2023 documented as of this encounter Results * XR Tibia Fibula [...] who have questions please contact the health healthcare risk control consultant that requested your imaging first. ? Electronically signed by: Gisell Blackwell MD, [facility] ([phone]), at 03/12/2023 7:37 PM Narrative 03/12/2023 7:37 PM EDT EXAMINATION: XR TIBIA FIBULA BILAT (GENERIC) CLINICAL HISTORY: suspect calcinosis cutis left leg TECHNIQUE: 2 views BILATERAL tibia and fibula COMPARISON: Right knee radiographs 07/30/2019, 12/16/2009 FINDINGS: The bones are demineralized. No fracture. Chondroid lesion within the right lateral tibial plateau is unchanged from 2009, characteristic of a benign enchondroma. Circumferential reticular [...] theright lateral tibial plateau is unchanged from 2009, characteristic of abenign enchondroma. Circumferential reticular calcifications [...] patients who have questions please contactthe health healthcare risk control consultant that requested your imaging first. Electronically signed by: Gisell Blackwell MD, [facility]([phone]), at 03/12/2023 7:37 PM Grant Leos MD IMG DX ORDERABLES * Porphyrins, Quant Random Urine (03/12/2023 12:02 PM EDT) Porphyrins, QN, Random U Test ?Result ?Flag ??Unit ? RefValue ------- Porphyrins, QN, Random, U ??Uroporphyrin, [place] ?6 ? nmol/L ?? <=30 ??Heptacarboxylpor phyrins [...] developed and its performance characteristics ?determined by [facility] in a manner consistent with CLIA ?requirements. This test has not been cleared or approved by ?the U.S. Food and Drug Administration. ?Test Performed by: ?[facility] ?[address] [place] [address] ?Computer Numerical Control Programmer: Zhen Hinson M.D. Ph.D.; CLIA# [id number] [facility] Urine 03/12/2023 12:0 2 PM EDT 03/12/2023 2:36 PM EDT Narrative Resulting Agency Comment Spec In Lab Grant Leos MD URINE ORDERABLES Performing Organization Address City/[facility]/ZIP Co de Phone Number [facility] [place] [place] [address] * Calcium Creatinine Ratio, random urine (03/12/2023 12:02 PM EDT) U Calcium <0.8 mg/dL [facility] U Creatinine 28 mg/dL [facility] Ca/Cre Ratio <0.03 ratio [facility] Urine 03/12/2023 12:0 2 PM EDT 03/12/2023 12:40 PM EDT Narrative Resulting Agency Comment Spec In Lab Grant Leos MD URINE ORDERABLES Performing Organization Address City/[facility]/[place] Co de Phone Number [facility] [place] [address] * Urinalysis with reflex Culture (03/12/2023 12:02 PM EDT) Glucose UA Negative Negative mg/dL [facility] Protein UA Negative Negative mg/dL [facility] Bilirubin UA Negative Negative mg/dL [facility] Comment: Clinical correlation required for positive Urine Bilirubin results as false positive may occur with some drugs and drug related products. If a false positive is suspected a serum total bilirubin should be considered if clinically indicated. Urobilinogen UA Normal Normal mg/dL [facility] pH UA 8.0 5.0 - 8.0 [facility] Blood UA Negative Negative mg/dL [facility] Ketones UA Negative Negative mg/dL [facility] Nitrite UA Negative Negative [facility] Leukocytes UA Negative Negative mcL [facility] Appearance UA Clear Clear [facility] Spec Gaston UA 1.008 1.005 - 1.030 [facility] Color UA Yellow Yellow [facility] Culture Reflexed No [facility] Urine NS 03/12/2023 12:0 2 PM EDT 03/12/2023 12:40 PM EDT Narrative Resulting Agency Comment Spec In Lab Grant Leos MD URINE ORDERABLES Performing Organization Address [facility]/ZIP Co de Phone Number [facility] [place] [address] * (ABNORMAL) APTT (03/12/2023 11:56 AM EDT) PTT 50(H) 25 - 37 sec [facility] Comment: The PTT is NOT appropriate for heparin monitoring. Use the Anti-Xa level for heparin monitoring (HEP UFH) or LMWH monitoring (HEP LMW). A PTT less than 37 seconds generally indicates adequate hemostasis. Blood 03/12/2023 11:5 6 AM EDT 03/12/2023 12:07 PM EDT Narrative Resulting Agency Comment Spec In Lab Grant Leos MD HEMATOLOGY ORDERABL ES Performing Organization Address [facility]/[place] Co de Phone Number [facility] [place] [address] * (ABNORMAL) Prothrombin Time (03/12/2023 11:56 AM EDT) PT 28.5(H) 9.4 - 12.5 sec [facility] INR 2.5 [facility] Comment: An INR <2.0 indicates [...] Lab Grant Leos MD HEMATOLOGY ORDERABL ES [facility] [place] [address] * Hemoglobin A1c (03/12/2023 11:56 AM EDT) Hemoglobin A1C 4.6 4.3 - 5.6 % [facility] Comment: Reference Range: 4.3 - [...] Mellitus, Diabetes Care 2013; 36: Suppl. 1, S67-97 Est Avg Gluc 84 mg/dL [facility] Comment: eAG equivalents for HbA1c percentages: [...] into estimated average glucose values. ??Diabetes Care 2008:31(8):9287-9255. Blood 03/12/2023 11:5 6 AM EDT 03/12/2023 12:07 PM EDT Narrative Resulting Agency Comment Spec In Lab Grant Leos MD CHEMISTRY ORDERABLE S Performing Organization Address [facility] de Phone Number [facility] [place] [address] * HIV Screen, 4th Generation ([facility]/CGP/APD/NLH) (03/12/2023 11:56 AM EDT) [facility] HIV-1/2 Ab and Ag Negative Negative [facility] Comment: This 4th Generation HIV test [...] HIV Comment Low Risk of HIV Infection [facility] Blood 03/12/2023 11:5 6 AM EDT 03/12/2023 12:07 PM EDT Narrative Resulting Agency Comment Spec In Lab Grant Leos MD IMMUNOLOGY ORDERABL ES Performing Organization Address [facility] de Phone Number [facility] [place] [address] * (ABNORMAL) Protein Electrophoresis, serum (03/12/2023 11:56 AM EDT) Pathologist [facility] Total Prot Elec 7.7 6.1 - 8.0 g/dL [facility] Albumin Elect 4.31 3.20 - 5.20 g/dL [facility] Alpha1-Globul in 0.23 0.10 - 0.30 g/dL [facility] Alpha2-Globul in 0.79 0.40 - 0.90 g/dL [facility] Beta Globulin 0.92 0.50 - 1.00 g/dL [facility] Gamma Globulin 1.45(H) 0.50 - 1.30 g/dL [facility] M1 Band None Detected None Detected [facility] Blood 03/12/2023 11:5 6 AM EDT 03/12/2023 12:07 PM EDT Narrative Resulting Agency Comment Spec In Lab Grant Leos MD CHEMISTRY ORDERABLE S Performing Organization Address City/State/[place] Co de Phone Number [facility] [place] [address] * (ABNORMAL) Myositis Antibody Panel Plus (03/12/2023 11:56 AM EDT) Myositis Ab Panel Test ? Result ? [...] ?approved by the Food and Drug Administration. ??Gmkx-Lw-2-Ab ? Negative ?Negative ?This test was developed and its performance characteristics ?determined by [facility]. It has not been cleared or ?approved by the Food and Drug Administration. ??Yyob-[id number]-[id number] Ab ? 32 ?H ?Units ??<20 ?This [...] by the Food and Drug Administration. ??Anti-U1 MANAGER USER INTERFACE Ab ? <20 ?Units ??<20 ??Anti-U2 MANAGER USER INTERFACE Ab ? Negative ?Negative ?This test was developed and its performance characteristics ?determined by [facility]. It has not been cleared or ?approved by the Food and Drug Administration. ??Anti-U3 MANAGER USER INTERFACE (Fibrillarin) ?Negative ?Negative ?This test was developed and its performance characteristics ?determined by [facility]. It has not been cleared or ?approved by the Food and Drug Administration. ?Interpretation for Anti-Mounika-1, [id number], ?Anti-MDA-5, Anti-NXP-2, Anti-SAE1, Anti-PM/Scl-100, ?Anti-SS-A 52 kD, Anti-U1 MANAGER USER INTERFACE: ?Negative: ?<20 ?Weak Positive: ? 20 - 39 ?Moderate Positive: ? 40 - 80 ?Strong Positive: ? >80 ?. ?Test Performed by: ?[facility] ?[address] ?[place] [address](A) [facility] Blood 03/12/2023 11:5 6 AM EDT 03/12/2023 12:40 PM EDT Narrative Resulting Agency Comment Spec In Lab Grant Leos MD IMMUNOLOGY ORDERABL ES [facility] [place] [address] * QuantiFERON-TB Gold (03/12/2023 11:56 AM EDT) QFT Nil 0.032 IU/mL [facility] QFT TB Ag1-Nil 0.002 IU/mL [facility] QFT TB Ag2-Nil 0.000 IU/mL [facility] QFT Mitogen-Nil 9.968 IU/mL [facility] Quantiferon TB Negative Negative [facility] Quantiferon TB Interp M. tuberculosis infection [...] affect immune function, or other immunological factors. [facility] Blood 03/12/2023 11:5 6 AM EDT 03/13/2023 7:15 AM EDT Narrative Resulting Agency Comment Spec In Lab Grant Leos MD CHEMISTRY ORDERABLE S Performing Organization Address [facility] Co de Phone Number [facility] [place] [address] * Hepatitis C Antibody (03/12/2023 11:56 AM EDT) Hepatitis C Ab Negative Negative [facility] Blood 03/12/2023 11:5 6 AM EDT 03/12/2023 12:07 PM EDT Narrative Resulting Agency Comment Spec In Lab Grant Leso MD IMMUNOLOGY ORDERABL ES Performing Organization Address [facility] Co de Phone Number [facility] [place] [address] * Hepatitis B Surface Antibody (03/12/2023 11:56 AM EDT) HepB Surface Ab Quant <3.5 IU/L [facility] Comment: HepB Surface Ab Quant: Unvaccinated: < 8.5 IU/L Vaccinated: >= 11.5 IU/L HepB Surface Ab Negative [facility] Comment: Patient is presumed to be not vaccinated or immune to HBV infection. Expected Results: Vaccinated: Positive Unvaccinated: Negative Blood 03/12/2023 11:5 6 AM EDT 03/12/2023 12:07 PM EDT Narrative Resulting Agency Comment Spec In Lab Grant Leos MD IMMUNOLOGY ORDERABL ES [facility] [place] [address] * Hepatitis B Surface Antigen (03/12/2023 11:56 AM EDT) HepB Surface Ag Negative Negative [facility] Blood 03/12/2023 11:5 6 AM EDT 03/12/2023 12:07 PM EDT Narrative Resulting Agency Comment Spec In Lab Grant Leos MD CHEMISTRY ORDERABLE S Performing Organization Address City/[facility]/ZIP Co de Phone Number [facility] [place] [address] * Hepatitis B Core Antibody, Total (03/12/2023 11:56 AM EDT) Hep B Core Ab Negative Negative [facility] Blood 03/12/2023 11:5 6 AM EDT 03/12/2023 12:07 PM EDT Narrative Resulting Agency Comment Spec In Lab Grant Leos MD CHEMISTRY ORDERABLE S Performing Organization Address [facility]/ZIP Co de Phone Number [facility] [place] [address] * CK (03/12/2023 11:56 AM EDT) CK, Total 65 0 - 160 unit/L [facility] Blood 03/12/2023 11:5 6 AM EDT 03/12/2023 12:07 PM EDT Narrative Resulting Agency Comment Spec In Lab Grant Leos MD CHEMISTRY ORDERABLE S Performing Organization Address [facility]/ZIP Co de Phone Number [facility] [place] [address] * (ABNORMAL) Vitamin D, 25-Hydroxy (03/12/2023 11:56 AM EDT) 25-OH Vit D Total 13(L) 21 - 100 ng/mL [facility] 25-OH Vit D Interp Deficient [facility] Blood 03/12/2023 11:5 6 AM EDT 03/12/2023 12:07 PM EDT Narrative Resulting Agency Comment Spec In Lab Grant Leos MD CHEMISTRY ORDERABLE S Performing Organization Address [facility]/ZIP Co de Phone Number [facility] [place] [address] * PTH (03/12/2023 11:56 AM EDT) PTH 48 15 - 65 pg/mL [facility] Blood 03/12/2023 11:5 6 AM EDT 03/12/2023 12:07 PM EDT Narrative Resulting Agency Comment Spec In Lab Grant Leos MD CHEMISTRY ORDERABLE S Performing Organization Address [facility]/ZIP Co de Phone Number [facility] [place] [address] * (ABNORMAL) Comprehensive metabolic panel (non-fasting) (03/12/2023 11:56 AM EDT) Glucose Lvl 100 65 - 199 mg/dL [facility] Comment:Diabetes: >=200 mg/d L plus symptoms BUN 11 8 - 18 mg/dL [facility] Creatinine 0.96 0.70 - 1.20 mg/dL [facility] Sodium 137 135 - 145 mmol/L [facility] Potassium 4.3 3.5 - 5.0 mmol/L [facility] Comment: Please note: ??Patients with WBC >100,000 may have falsely elevated Potassium levels. ??For accurate Potassium quantification in these patients send serum separator tube (gold top) for subsequent determinations. ??Contact the Clinical Chemistry Laboratory if there are any questions. Chloride 101 98 - 107 mmol/L [facility] CO2 28 22 - 31 mmol/L [facility] Anion Gap 8 5 - 15 mmol/L [facility] Calcium 9.4 8.5 - 10.5 mg/dL [facility] Total Protein 8.0 6.1 - 8.0 g/dL [facility] Albumin 4.1 3.2 - 5.2 g/dL [facility] AST 31(H) 0 - 30 unit/L [facility] ALT 24 0 - 30 unit/L [facility] Alk Phos 167(H) 35 - 105 unit/L [facility] Total Bilirubin 0.3 0.2 - 1.3 mg/dL [facility] Estimated GFR 65 >=60 mL/min/1. 73 m?? [facility] Comment: This patient's estimated GFR [...] MD CHEMISTRY ORDERABLE S Performing Organization Address [facility]/[place] Co de Phone Number [facility] [place] [address] * Complement, Total (03/12/2023 11:56 AM EDT) Complement Total 60 42 - 95 unit/mL [facility] Blood 03/12/2023 11:5 6 AM EDT 03/12/2023 12:07 PM EDT Narrative Resulting Agency Comment Spec In Lab Grant Leos MD CHEMISTRY ORDERABLE S Performing Organization Address [facility] de Phone Number [facility] [place] [address] * (ABNORMAL) TEX Ab by IFA (03/12/2023 11:56 AM EDT) Pathologist [facility] Antinuclear Ab Test ?Result ? Flag ??Unit ??RefValue Antinuclear Ab, HEp-2 Substrate, ?Positive 1:320 ??@ ?<1:80 (Negative) ??S ? ADDITIONAL INFORMATION --------- ?Method: Immunofluorescence using HEp-2 cellular substrate. ??TEX Titer: ?1:80 ??TEX Pattern: ?Homogeneous ??TEX Titer 2: ?1:320 ??TEX Pattern 2: ?Nucleolar ?Test Performed by: ?[facility] ?[address] [place] [address] ?Computer Numerical Control Programmer: Zhen Hinson M.D. Ph.D.; CLIA# [id number] ([id number]) [facility] Blood 03/12/2023 11:5 6 AM EDT 03/12/2023 2:52 PM EDT Narrative Resulting Agency Comment Spec In Lab Grant Leos MD CHEMISTRY ORDERABLE S Performing Organization Address [facility]/[place] Co de Phone Number [facility] [place] [address] * DNA Antibody (Double-Stranded) (03/12/2023 11:56 AM EDT) dsDNA Ab <0.6 <=15.0 IU/mL [facility] Comment: <10 negative 10-15 equivocal >15 positive This dsDNA antibody result was generated using a fluoroenzyme immunoassay on the Pictarinea 250 analyzer. This quantitative test is designed to detect IgG antibodies directed against double stranded DNA in human serum. The presence of antibodies that recognize dsDNA is a highly specific marker for systemic lupus erythematosus. Please note that as of 06/13/2022 that this testing is performed by the [facility] at [facility]. This change in testing location is associated with a change is testing method and reference intervals. Please review the results of this test in association with the posted reference intervals. Blood 03/12/2023 11:5 6 AM EDT 03/12/2023 12:43 PM EDT Narrative Resulting Agency Comment Spec In Lab Grant Leos MD CHEMISTRY ORDERABLE S Performing Organization Address [facility]/[place] Co de Phone Number [facility] [place] [address] * (ABNORMAL) Sedimentation rate (03/12/2023 11:56 AM EDT) Sed Rate 75(H) 2 - 39 mm/hr [facility] Comment: Effective July 30, 2019 new capillary photometric technology has resulted in a change in reference ranges. It is recommended that each ESR result be reviewed with its own age appropriate reference range. Blood 03/12/2023 11:5 6 AM EDT 03/12/2023 12:07 PM EDT Narrative Resulting Agency Comment Spec In Lab Grant Leos MD HEMATOLOGY ORDERABL ES Performing Organization Address [facility]/ZIP Co de Phone Number [facility] [place] [address] * CRP, acute inflammation (03/12/2023 11:56 AM EDT) Pathologist [facility] CRP 3.5 <=4.9 mg/L [facility] Blood 03/12/2023 11:5 6 AM EDT 03/12/2023 12:07 PM EDT Narrative Resulting Agency Comment Spec In Lab Grant Leos MD CHEMISTRY ORDERABLE S Performing Organization Address [facility]/ZIP Co de Phone Number [facility] [place] [address] * C4 Complement (03/12/2023 11:56 AM EDT) C4 Complement 15 10 - 40 mg/dL [facility] Blood 03/12/2023 11:5 6 AM EDT 03/12/2023 12:07 PM EDT Narrative Resulting Agency Comment Spec In Lab Grant Leos MD CHEMISTRY ORDERABLE S Performing Organization Address [facility]/ZIP Co de Phone Number [facility] [place] [address] * C3 Complement (03/12/2023 11:56 AM EDT) C3 Complement 110 90 - 180 mg/dL [facility] Blood 03/12/2023 11:5 6 AM EDT 03/12/2023 12:07 PM EDT Narrative Resulting Agency Comment Spec In Lab Grant Leos MD CHEMISTRY ORDERABLE S [facility] [place] [address] * Extractable Nuclear Antigen (SAMARA) Ab (03/12/2023 11:56 AM EDT) SS-A/Ro Ab <0.40 <=10.00 unit/mL [facility] Comment: <7 negative 7-10 equivocal >10 positive The SS-A antibody result was generated using fluoroenzyme immunoassay on the Pictarinea 250 analyzer. the semi-quantitative test is designed to detect IgG antibodies in human serum that are reactive to the SS-A (Ro) protein. Please note that as of 06/13/2022 that this testing is performed by the [facility] at [facility]. This change in testing location is associated with a change in testing method and reference intervals. Please review the results of this test in association with the posted reference intervals. SS-B/La Ab <0.40 <=10.00 unit/mL [facility] Comment: <7 negative 7-10 equivocal >10 positive The SS-B antibody result was generated using fluoroenzyme immunoassay on the Credportdia 250 analyzer. the semi-quantitative test is designed to detect IgG antibodies in human serum that are reactive to the SS-B (La) protein. Please note that as of 06/13/2022 that this testing is performed by the [facility] at [facility]. This change in testing location is associated with a change in testing method and reference intervals. Please review the results of this test in association with the posted reference intervals. SCL-70 Ab <0.60 <=10.00 unit/mL [facility] Comment: <7 negative 7-10 equivocal >10 positive The Scl-70 antibody result was generated using fluoroenzyme immunoassay on the Phadia 250 analyzer. the semi-quantitative test is designed to detect IgG antibodies in human serum that are reactive to the Scl-70 protein. Please note that as of 06/13/2022 that this testing is performed by the [facility] at [facility]. This change in testing location is associated with a change in testing method and reference intervals. Please review the results of this test in association with the posted reference intervals. Sm (Aguilar) Ab <0.70 <=10.00 unit/mL [facility] Comment: <7 negative 7-10 equivocal >10 positive The Sm antibody result was generated using fluoroenzyme immunoassay on the Phadia 250 analyzer. the semi-quantitative test is designed to detect IgG antibodies in human serum that are reactive to the Sm protein. Please note that as of 06/13/2022 that this testing is performed by the [facility] at [facility]. This change in testing location is associated with a change in testing method and reference intervals. Please review the results of this test in association with the posted reference intervals. U1RNP Ab 0.50 <=10.00 unit/mL [facility] Comment: <5 negative 5-10 equivocal >10 positive The U1RNP antibody result was generated using fluoroenzyme immunoassay on the Phadia 250 analyzer. the semi-quantitative test is designed to detect IgG antibodies in human serum that are reactive to the U1RNP protein. Please note that as of 06/13/2022 that this testing is performed by the [facility] at [facility]. This change in testing location is associated with a change in testing method and reference intervals. Please review the results of this test in association with the posted reference intervals. Centromere Ab <0.40 <=10.00 unit/mL [facility] Comment: <7 negative 7-10 equivocal >10 positive The CENP antibody result was generated using fluoroenzyme immunoassay on the Phadia 250 analyzer. the semi-quantitative test is designed to detect IgG antibodies in human serum that are reactive to the Centromere B protein. Please note that as of 06/13/2022 that this testing is performed by the [facility] at [facility]. This change in testing location is associated with a change in testing method and reference intervals. Please review the results of this test in association with the posted reference intervals. Mounika-1 Ab <0.30 <=10.00 unit/mL [facility] Comment: <7 negative 7-10 equivocal >10 positive The Mounika-1 antibody result was generated using fluoroenzyme immunoassay on the R17 250 analyzer. the semi-quantitative test is designed to detect IgG antibodies in human serum that are reactive to the Mounika-1 protein. Please note that as of 06/13/2022 that this testing is performed by the [facility] at [facility]. This change in testing location is associated with a change in testing method and reference intervals. Please review the results of this test in association with the posted reference intervals. Blood 03/12/2023 11:5 6 AM EDT 03/12/2023 12:43 PM EDT Narrative Resulting Agency Comment Spec In Lab Grant Leos MD IMMUNOLOGY ORDERABL ES [facility] [place] [address] documented in this encounter Visit Diagnoses Diagnosis Calcinosis cutis Degenerative skin disorder Osteopenia, unspecified location Warfarin anticoagulation Encounter for long-term (current) use of anticoagulants Anemia, unspecified type Osteopenia, unspecified location documented in this encounter Care Teams Telepathist Relationship Specialty Start Date End Date Renzo Castano APRN [address] [place] [address] PCP - General Family Medicine 05/31/21 documented as of this encounter
--- OUTSIDE RECORDS SUMMARY | 2024-03-21 14:00 | XMS_ITS | Encounter Summary ---
[place] [address] Care Team Providers Care Stockroom Worker Name Role Phone Renzo Castano APRN Primary Care Provider [phone]- [phone] Reason for Referral * Consultation (Urgent) - Closed Specialty Diagnoses / Procedures Referred By Contjosette rodriguez Referred To Contact Vascular Surgery Diagnoses Peripheral vascular disease, unspecified MD / IVC ILIAC, DVT Renzo Castano APRN [address] [place] [address] [facility] [address] [place] [address] Referral ID Status Reason Start Date Expiration Date V isits Requested Visits Authorized [id number] Closed Consult, Test & Treat 05/05/2022 05/05/2023 1 1 Encounter Details Date Type Department Care Team (Late st Contact Info) Description 05/05/2022 Transcribe [place] [address] Renzo Castano APRN [address] [place], [place] [id number] Peripheral vascular disease, unspecified Social History Tobacco Use Types Packs/Day Years [...] Associated Diagnoses Orde r Schedule Referral to Vascular Surgery Outpatient Referral Routine Peripheral vascular disease, unspecified Ordered: 05/05/2022 documented as of this encounter Visit Diagnoses Diagnosis Peripheral vascular disease, unspecified documented in this encounter Care Teams Stockroom Worker Relationship Specialty Start Date End Date Renzo Castano, EMERGENCY MEDICINE PHYSICIAN [address] [place] [address] PCP - General Family Medicine 05/31/21 documented as of this encounter
--- OUTSIDE RECORDS SUMMARY | 2024-03-21 14:00 | XMS_ITS | Encounter Summary ---
Author Organization [facility] Address [facility] [place] [address] Care Team Providers Care Finance Manager Name Role Phone Jerman Powell MD Primary Care Provider [phone] Reason for Referral * Consultation (Routine) - Specialty Diagnoses / Procedures Referred By Contac t Referred To Contact Podiatry Diagnoses Claudication Priscila Lloyd PA [facility] [place] [address] Referral ID Status Reason Start Date Expiration Date V isits Requested Visits Authorized [id number] Consult, Test & Treat 03/27/2018 09/23/2018 1 1 Reason for Visit * Reason Comments Toe Pain TOE PAIN INCREASED Encounter Details Date Type Department Care Team (Late st Contact Info) Description 03/27/2018 1:00 PM EDT Office Visit Vascular Surgery at [facility] [place] [phone] Priscila Lloyd PA [facility] [place] [address] Claudication Social History Tobacco Use Types Packs/Day Years [...] Sign Reading Time Taken Comments Blood Pressure 120/56 03/27/2018 1:02 PM EDT Pulse 92 03/27/2018 1:02 PM EDT Temperature - - Respiratory Rate 18 03/27/2018 1:02 PM EDT Oxygen Saturation - - Inhaled Oxygen Concentration - - Weight 70.8 kg (156 lb) 03/27/2018 1:02 PM EDT Height 157.5 cm (5' 2) 03/27/2018 1:02 PM EDT Body Mass Index 28.53 03/27/2018 1:02 PM EDT documented in this encounter Progress Notes * Priscila Lloyd PA - 03/27/2018 1:00 PM EDT Images from the original note were not included. 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 Last clinic visit on 12/18/17 with Rachel Braun PA-C at which time 6 month follow up was recommended. Patient called our clinic earlier this week c/o 1-2 months of LEFT 2nd toe pain. She denies trauma of the area. Xray from OSH negative, work up for gout negative as well per report. Takes percocet without significant relief. She reports that this pain improves with elevation and worsens when weight bearing. Denies rest pain or tissue loss. Michelle significant swelling; no compression therapy - reports pain when wearing. She reports stable L>R calf discomfort with ambulation. Working with PT/ambulation regimen/pool therapy. PMHx: Patient Active Problem List Diagnosis ??? [...] SURGERY Left 01/30/2014 Left iliac vein stent UROLOGIST PHYSICIAN Family Hx: No family history on file. Social Hx: Social History Substance Use Topics ??? Smoking status: Current Every Day Smoker Packs/day: 0.50 ??? Smokeless tobacco: Never Used ??? Alcohol use No Medications: Medications 03/27/18 1339 Medication Sig Taking? aspirin 81 mg Tablet, Delayed Release (E.C.) Take 81 mg by mouth daily. Yes Miscellaneous Medical Supply Misc 1 Units. Yes dapsone 100 mg Tablet Take 75 mg by mouth. Yes gabapentin (NEURONTIN) 300 mg Capsule Take 300 mg by mouth. Yes warfarin (COUMADIN) 5 mg Tablet Take 5 mg by mouth. Yes ONETOUCH ULTRA TEST Strip TEST TWO TIMES A DAY Yes chlorhexidine (PERIDEX) 0.12 % Mouthwash Yes diphenoxylate-atropine (LOMOTIL) 2.5-0.025 mg Tablet Yes ONE TOUCH DELICA 33 gauge Misc TEST TWO TIMES A DAY Yes loperamide (IMODIUM) 2 mg Capsule Yes triamcinolone (KENALOG) 0.1 % Lotion Yes HYDROcodone-acetaminophen (NORCO) 10-325 mg Tablet Take 1 tablet by mouth every 6 hours as needed for Pain. Yes baclofen (LIORESAL) 10 mg Tablet Take 10 mg by mouth 2 times daily. Yes metFORMIN (GLUCOPHAGE) 1,000 mg tablet Take 1,000 mg by mouth 2 times daily (with meals). Yes amitriptyline (ELAVIL) 10 mg tablet Take 20 mg by mouth nightly. Yes MAGNESIUM ORAL Take by mouth daily. Yes dapsone (ACZONE) 25 mg tablet Take 2 tablets by mouth 2 times daily. Yes omeprazole (PRILOSEC) 20 mg capsule Take 20 mg by mouth nightly. Yes gabapentin (NEURONTIN) 300 mg capsule Take 1,500 mg by mouth daily. Yes Allergies: Allergies Allergen Reactions ??? Adhesive Tape Rash ??? Wheat Bran Rash ??? Wheat Flour Rash ??? Wheat Germ Oil Rash ??? Wheat Starch Rash Review of Systems: Constitutional (weight change, fever) - Denies Neuro (dizziness, seizures, numbness, tingling) - Denies Eyes (vision) - Denies Ears, nose, throat (hearing) - Denies Cardiovascular (CP) - Denies Respiratory (SOB) - Denies GI (abd pain, nausea, emesis, blood in stool) - Denies (hematuria, dysuria, frequency) - Denies Muscoloskeletal (extremity pain, weakness) - per HPI Skin (ulcers, rashes) - per HPI All other ROS negative Physical Exam: Vitals: Most Recent Vitals: 03/27/18 1302 BP: 120/56 Pulse: 92 Resp: 18 PainSc: 0 - No pain NAD, pleasant female resting comfortably in exam room chair, easily positions self on table for exam, supportive at bedside NCAT, no carotid bruits noted Non-labored breathing on RA, CTA b/l RRR abd round contour, soft, nontender, nondistended, exam limited by body habitus, unable to note femoral pulses, PT/DP signals b/l, LEFT leg larger than the RIGHT (see photo below), smaller varicosities of the foot and ankles b/l, dystrophic toenails, LEFT 2nd toe with moderate proximal swelling, pain with movement A&Ox3, nonfocal Labs/Studies: ABIs (03/27/18): Right ?Pressure (mm Hg) ?? RAFI ??Waveform ?? TBI ?? Brachial Artery ?121 ? Dorsalis Pedis (Ankle) Artery ?83 ?0.69 ??Biphasic ? Posterior Tibial (Ankle) Artery ??89 ?0.74 ??Biphasic ? Great Toe ?68 ?0.56?? Second Toe ? 44 ?0.36 ?? Left ? Pressure (mm Hg) ?? RAFI ??Waveform ?? TBI ?? Brachial Artery ?118 ? Dorsalis Pedis (Ankle) Artery ?79 ?0.65 ??Biphasic ? Posterior Tibial (Ankle) Artery ??79 ?0.65 ??Biphasic ? Great Toe ?43 ?0.36?? Second Toe ? 47 ?0.39 ?? Interpretation: RIGHT: Mild to moderate lower extremity arterial occlusive disease. No identifiable change when compared to the previous exam performed on 12/18/2017. LEFT: Moderate lower extremity arterial occlusive disease. No identifiable change when compared to the previous exam performed on 12/18/2017. Assessment/Plan: 62 yo diabetic female, current smoker with h/o May Thurner's s/p iliac stenting with new LEFT 2nd toe pain with stable ABIs, toe pressure [address] Rain. Suspecttrauma to the toe; given stable non- invasive studies today. Recommend follow up with PCP, consult to Podiatry. Continue optimal medical amnagement with Coumadin, ASA and statin. Smoking cessation encouraged. Compression and elevation of the LLE. DM control. RTC 6 months with ABIs/toe pressures; sooner for worsening symptoms. documented in this encounter Plan of Treatment Scheduled Referrals Name Type Priority Associated Diagnoses Orde r Schedule Referral to Podiatry Outpatient Referral Routine Claudication Ordered: 03/27/2018 documented as of this encounter Visit Diagnoses Diagnosis Claudication Peripheral vascular disease, unspecified documented in this encounter Care Teams Finance Manager Relationship Specialty Start Date End Date Jerman Powell MD [address] [place] [address] PCP - General 05/30/11 05/30/21 documented as of this encounter
--- OUTSIDE RECORDS SUMMARY | 2024-03-21 14:00 | XMS_ITS | Encounter Summary ---
Author Organization [facility] [place] [address] Care Team Providers Care Carriage Rider Name Role Phone Renzo Castano APRN Primary Care Provider [phone] Encounter Details Date Type Department Care Team (Late st Contact Info) Description 07/04/2021 9:45 AM EST Office Visit Dermatology at [address] [phone] Fausto Luna MD [address] [facility], [place] [address] Dermatitis herpetiformis Social History Tobacco Use Types [...] Progress Notes * Fausto Luna MD - 07/04/2021 9:45 AM EST Problems: 1. ??Followup of dermatitis herpetiformis. ?? 2. ??On dapsone 100 mg q.a.m. ?? 3. ??History of acne and seborrhea of scalp. ?? Janna follows up and was found to be anemic. Her CBC came back showing an H&H of 9.2 and 31.7. I had asked her to stop the dapsone. She states that she did so that but then within 2 days she was itching again so she restarted it. The dapsone was a likely cause of her anemia,. Physical examination reveals excoriated erythematous papules on the extensor elbows bilaterally. Assessment plan: Dermatitis herpetiformis 1. Begin sulfasalazine 500 mg 1 p.o. twice daily for 7 days then return to clinic dispense 14 with 0 refills 2. If tolerates will then advance to regular full dosing. 3. If we advance to regular full dosing then discontinue dapsone and consider short-term use of prednisone while I try to locate sulfapyridine as an option for this patient 4. Return to clinic in 1 week for recheck CC: Renzo Castano APRN documented in this encounter Plan of Treatment Not on file documented as of this encounter Visit Diagnoses Diagnosis Dermatitis herpetiformis documented in this encounter Care Teams Carriage Rider Relationship Specialty Start Date End Date Renzo Castano APRN [address] [place] [address] PCP - General Family Medicine 05/31/21 documented as of this encounter
--- OUTSIDE RECORDS SUMMARY | 2024-03-21 14:00 | XMS_ITS | Encounter Summary ---
[place] [address] Care Team Providers Care Repatcher Name Role Phone Jerman Powell MD Primary Care Provider [phone] Encounter Details Date Type Department Care Team (Latest Contact Info) Description 01/14/2019 1:15 PM EDT Laboratory Appointment Lab [address] [place] [id number] Knee strain, left, initial encounter Social History [...] Procedure Name Priority Date/Time Associated Diagnosis Comments CRP, ACUTE INFLAMMATION Routine 01/14/2019 1:43 PM EDT Knee strain, left, initial encounter SEDIMENTATION RATE Routine 01/14/2019 1: 43 PM EDT Knee strain, left, initial encounter documented in this encounter Results * (ABNORMAL) Sedimentation rate (01/14/2019 1:43 PM EDT) Sed Rate 39(H) 0 - 20 mm/hr [facility] Blood specimen (specimen) 01/14/2019 1:43 PM EDT 01/14/2019 1:55 PM EDT Narrative Resulting Agency Comment Spec In Lab Uriah Sales MD HEMATOLOGY ORDERABLE S Performing Organization Address City/[facility]/ZIP Co de Phone Number [facility] [place] [address] * CRP, acute inflammation (01/14/2019 1:43 PM EDT) CRP 4.1 <=4.9 mg/L [facility] Blood specimen (specimen) 01/14/2019 1:43 PM EDT 01/14/2019 1:55 PM EDT Narrative Resulting Agency Comment Spec In Lab Uriah Sales MD CHEMISTRY ORDERABLES Performing Organization Address [facility] Co de Phone Number [facility] [place] [address] documented in this encounter Visit Diagnoses Diagnosis Knee strain, left, initial encounter documented in this encounter Care Teams Repatcher Relationship Specialty Start Date End Date Jerman Powell MD [address] [place] [address] PCP - General 05/30/11 05/30/21 documented as of this encounter
--- OUTSIDE RECORDS SUMMARY | 2024-03-21 14:00 | XMS_ITS | Encounter Summary ---
[facility] [place] [address] Care Team Providers Care Direct Chill Caster Name Role Phone Renzo Castano APRN Primary Care Provider [phone] Encounter Details Date Type Department Care Team (Late st Contact Info) Description 01/17/2022 Ancillary Procedure [place] [address] Renzo Castano APRN [address] [place], [place] [id number] Social History Tobacco Use Types Packs/Day Years [...] Procedure Name Priority Date/Time Associated Diagnosis Comments FILM LIBRARY STORAGE ONLY CT ABDOMEN AND PELVIS Routine 01/17/2022 12:00 AM EDT documented in this encounter Results * Film Library- Storage Only CT Abdomen & Pelvis (01/17/2022 12:00 AM EDT) Narrative [facility] - 02/26/2023 3:45 PM EDT This exam is auto-finalizing. It's purpose is for storage only. Renzo Castano APRN IMG FILM LIBRARY O RDERABLES [place], [place] documented in this encounter Visit Diagnoses Not on filedocumented in this encounter Care Teams Direct Chill Caster Relationship Specialty Start Date End Date Renzo Castano APRN [address] [place] [address] PCP - General Family Medicine 05/31/21 documented as of this encounter
--- OUTSIDE RECORDS SUMMARY | 2024-03-21 14:00 | XMS_ITS | Encounter Summary ---
[place] [address] Care Team Providers Care Theatre Instructor Name Role Phone Jerman Powell MD Primary Care Provider [phone] Encounter Details Date Type Department Care Team (Late st Contact Info) Description 09/05/2019 Telephone [place] [phone] Amy Koch Social History Tobacco Use Types Packs/Day Years [...] encounter Miscellaneous Notes * Telephone Encounter - Amy Hurtado - 09/05/2019 3:04 PM EST Recall: CS RAFI w toes,Unilat LE DVT, IVC/Iliac, Limited - known arterail disease, left iliac vein stent, left iliac vein h/o DVT 9M FUV Attempted callx1 no VM. 09/03/2019 HH Letter sent 09/03/2019 HH Lmx1 with male 09/05/2019 HH Recall closed 09/05/2019 HH documented in this encounter Plan of Treatment Not on file documented as of this encounter Visit Diagnoses Not on filedocumented in this encounter Care Teams Theatre Instructor Relationship Specialty Start Date End Date Jerman Powell MD [address] [place] [address] PCP - General 05/30/11 05/30/21 documented as of this encounter
--- OUTSIDE RECORDS SUMMARY | 2024-03-21 14:00 | XMS_ITS | Encounter Summary ---
Author Organization [facility] Address [place] [id number] Care Team Providers Care Yarn Tester Name Role Phone Renzo Castano APRN Primary Care Provider [phone] Reason for Referral * Diagnostic Test (Routine) - Closed Specialty Diagnoses / Procedures Referred By Contac t Referred To Contact Diagnoses Left foot pain Osteopenia, unspecified location Calcification of soft tissue Procedures RAFI, legs, multiple levels Tanja Lebron MD [facility] [address] [facility] [address] [place] [address] Referral ID Status Reason Start Date Expiration Date V isits Requested Visits Authorized [id number] Closed Specialty Service Requested 01/16/2023 01/16/2024 1 1 * Consultation (Routine) - Closed Specialty Diagnoses / Procedures Referred By Contac t Referred To Contact Endocrinology Diagnoses Left foot pain Osteopenia, unspecified location Calcification of soft tissue Tanja Lebron MD [facility] [place] [address] Katlyn Albert MD [facility] [place] [address] Referral ID Status Reason Start Date Expiration Date V isits Requested Visits Authorized [id number] Closed Consult, Test & Treat 01/16/2023 01/16/2024 1 1 Encounter Details Date Type Department Care Team (Late st Contact Info) Description 01/10/2023 1:30 PM EDT Office Visit Vascular Surgery at [facility] [place] [address] Tanja Lebron MD [facility] [place] [address] Left foot pain; Osteopenia, unspecified location; Calcification [...] Sign Reading Time Taken Comments Blood Pressure 149/62 01/10/2023 9:33 AM EDT Pulse 92 01/10/2023 9:33 AM EDT Temperature - - Respiratory Rate - - Oxygen Saturation - - Inhaled Oxygen Concentration - - Weight 68 kg (150 lb) 01/10/2023 9:33 AM EDT Height 157.5 cm (5' 2) 01/10/2023 9:33 AM EDT Body Mass Index 27.44 01/10/2023 9:33 AM EDT documented in this encounter Progress Notes * Tanja Lebron MD - 01/10/2023 1:30 PM EDT Images from the original note were not included. Section of Vascular Surgery [facility] [place] [id number] OUTPATIENT VASCULAR SURGERY FOLLOW-UP SERVICE DATE: 01/10/2023 SERVICE TIME: 10:00 AM PRIMARY CARE PHYSICIAN: Renzo Castano APRN REFERRING PROVIDER: No referring provider defined for this encounter. Consult requested for an opinion regarding the evaluation and treatment of the above. My final impression and recommendations will be communicated back to the requesting physician by way of the shared medical record or letter via US mail. Reason for Visit: hx May-Thurner iliac stent History of Present Illness: Ender Kurtz is a 67 y.o. 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 no new leg swelling. Remains on coumadin sinceage 19, has protein C deficiency. Reports her L foot is swollen, unable to stand on L leg due to severe pain when applies pressure. Reports pain throughout her whole foot when stands and applies press ures to it. No pain at rest. No wounds or ulceration. Denies trauma. Review of notes from 2018 notes pain in this leg. Has to lay on R side when sleeps. Does not wear compression. Past Medical History: Diagnosis Date ??? May-Thurner syndrome Past Surgical History: Procedure Laterality Date ??? CHOLECYSTECTOMY, LAPAROSCOPIC 03/18/1992 ??? VASCULAR SURGERY Left 10/01/2009 Balloon angioplasty and stenting of left common iliac vein stenosis ??? VASCULAR SURGERY Left 01/30/2014 Left iliac vein stent [employer] Family History Problem Relation Age of Onset ??? Cancer Mother ??? Cancer Maternal Aunt ??? Diabetes Other Social History Tobacco Use ??? Smoking status: Every Day Packs/day: 0.50 Types: Cigarettes ??? Smokeless tobacco: Never Vaping Use ??? Vaping Use: Never used Substance Use Topics ??? Alcohol use: No ??? Drug use: No Current Outpatient Medications Medication Sig Dispense Refill ??? ferrous gluconate (Ferate) 240 mg (27 mg iron) tablet TAKE ONE TABLET BY MOUTH ON SUNDAY, SUNDAY, SUNDAY ??? omeprazole (PriLOSEC) 40 mg Capsule, Delayed Release(E.C.) TAKE ONE CAPSULE BY MOUTH AT BEDTIME ??? selenium sulfide 2.5 % Lotion Use every other day as shampoo for her scalp. Rinse out after 2-3minutes 120 mL 5 ??? clobetasoL (TEMOVATE) 0.05 % Solution Apply to pruritic areas and scalp on a nightly basis as needed 60 mL 3 ??? triamcinolone (Kenalog) 0.1 % Cream apply twice daily as needed for dermatitis herpetiformis 30g 3 ??? magnesium oxide (MAG-OX) 400 mg (241.3 mg magnesium) Tablet 0 ??? warfarin (COUMADIN) 5 mg Tablet Take by mouth daily. Indications: 5mg Mon, Wed, Fri 7.5mg Tues,Thur, Sat, Sun ??? ONETOUCH ULTRA TEST Strip TEST TWO TIMES A DAY 5 ??? ONE TOUCH DELICA 33 gauge Misc TEST TWO TIMES A DAY 4 ??? HYDROcodone-acetaminophen (NORCO) 10-325 mg Tablet Take 1 tablet by mouth every 6 hours as needed for Pain. ??? baclofen (LIORESAL) 10 mg Tablet Take 10 mg by mouth 2 times daily. ??? metFORMIN (GLUCOPHAGE) 1,000 mg tablet Take 1,000 mg by mouth 2 times daily (with meals). ??? amitriptyline (ELAVIL) 10 mg tablet Take 20 mg by mouth nightly. ??? dapsone (ACZONE) 25 mg tablet Take 2 tablets by mouth 2 times daily. 120 tablet 5 ??? gabapentin (NEURONTIN) 300 mg capsule Take 1,500 mg by mouth daily. ??? colchicine (Colcrys) 0.6 mg Tablet TAKE ONE TABLET BY MOUTH THREE TIMES A DAY ON THE FIRST DAY THEN TAKE TWO TABLETS PER DAY AFTER THAT UNTIL SYMPTOMS ARE GONE ??? cephALEXin (Keflex) 500 mg Capsule TAKE ONE CAPSULE BY MOUTH FOUR TIMES A DAY ??? minocycline (Minocin) 100 mg Capsule Take one capsule by mouth nightly for 1 week then twice daily for 1 month (Patient not taking: Reported on 01/10/2023) 60 capsule 0 ??? diclofenac (VOLTAREN) 1 % Gel Apply 2 g topically 4 times daily as needed (Pain). Apply to affected area. Max 8 grams/joint/day, 32 grams/day total. (Patient not taking: Reported on 01/10/2023) 100 g 0 ??? aspirin 81 mg Tablet, Delayed Release (E.C.) Take 81 mg by mouth daily. ??? diphenoxylate-atropine (LOMOTIL) 2.5-0.025 mg Tablet Take 1 tablet by mouth 4 times daily as needed. No current facility-administered medications for this visit. Allergies Allergen Reactions ??? Azithromycin Shortness Of Breath ??? Adhesive Tape Rash ??? Amoxicillin Nausea Only ??? Rizatriptan ??? Sertraline ??? Sulfamethoxazole ??? Sulfamethoxazole-Trimethoprim ??? Tramadol Nausea Only ??? Trimethoprim ??? Venlafaxine ??? Wheat Bran Rash ??? Wheat Flour Rash ??? Wheat Germ Oil Rash ??? Wheat Starch Rash ??? Zofran [Ondansetron Hcl] I dont like it COMPLETE REVIEW OF SYSTEMS All other reviewed and negative other than HPI. Physical Exam: PHYSICAL EXAM Physical Exam Performed BP 149/62 (BP Location (NBP): Right arm, Patient Position: Sitting, BP Cuff Sizes: Adult (25-34 cm)) Pulse 92 Ht 157.5 cm (5' 2) Wt 68 kg (150 lb) BMI 27.44 kg/m?? CONSTITUTIONAL: alert, well developed, well nourished, in no acute distress NEUROLOGIC/PSYCHIATRIC: Grossly normal HEENT: normal atraumatic. LUNGS: breathing comfortably on RA HEART: regular rate and rhythm ABDOMEN: soft, non-tender; bowel sounds normal; no masses, no organomegaly INTEGUMENTARY: Wound - none SURGICAL SITES: none MUSCULOSKELETAL:severe firmness/calcificaiton of L calf soft tissues. Normal R calf. Exquisite tenderness along dorsum of L foot . Motor/sensory intact. Foot warm, well perfused. Pulses/Signals: Brachial Radial Femoral Popliteal Dorsalis Pedis Posterior Tibial Right 2/2 2/2 2/2 1/2 0/2 0/2 Left 2/2 2/2 2/2 1/2 0/2 0/2 DATA: Radiology: 08/06/2018 RAFI Right ?Pressure (mm Hg) ?? RAFI ??Waveform ?TBI ?? Brachial Artery ?133 ? Dorsalis Pedis (Ankle) Artery ?92 ?0.69 ??Colbert- Biphasic ? Posterior Tibial (Ankle) Artery ??96 ?0.72 ??Colbert-Biphasic ? Great Toe ?69 ? 0.52 ? Left ? Pressure (mm Hg) ?? RAFI ??Waveform ?TBI ?? Brachial Artery ?132 ? Dorsalis Pedis (Ankle) Artery ?92 ?0.69 ??Colbert- Biphasic ? Posterior Tibial (Ankle) Artery ??91 ?0.68 ??Colbert-Biphasic ? Great Toe ?50 ? 0.38 ? Interpretation: ?? RIGHT: Moderate lower extremity arterial occlusive disease. No significant change compared to previous exam. ?? LEFT: Moderate lower extremity arterial occlusive disease. No significant change compared to previous exam. ?? Previous ABIs with change from previous value: ?? Date ?RIGHT DP ?? RIGHT PT ?? RT GR TOE ??RT Sec TOE ??0.91 ? 0.92 ? ---- ? ---- ??0.58(-.33) 0.58(-.34) 0.46 ? ---- ??0.63(+.05) 0.64(+.06) 0.44(-.02) ---- ??0.79(+.16) 0.78(+.14) 0.54(+.10) ---- ??0.69(-.10) 0.74(-.04) 0.56(+.02) 0.36 Current ? 0.69( .00) 0.72(-.02) 0.52(-.04) ---- ?? Date ?LEFT DP ?LEFT PT ?LT GR TOE LT Sec TOE ??0.85 ? 0.90 ? ---- ? ---- ??0.48(-.37) 0.54(-.36) 0.38 ? ---- ??0.61(+.13) 0.63(+.09) 0.32(-.06)??---- ??0.72(+.11) 0.73(+.10) 0.42(+.10) ---- ??0.65(-.07) 0.65(-.08) 0.36(-.06) 0.39 Current ? 0.69(+.04) 0.68(+.03) 0.38(+.02) ---- ?? 01/10/2023 LLE venous duplex Interpretation: ?? Left: Patent external iliac and proximal common iliac vein without evidence of obstruction; stent margins not visualized. Remainder of common iliac vein and inferior vena cava were not visualized due to overlying bowel gas. ?? No identifiable significant change compared to previous exam 08/07/17 where iliac was examined on lower extremity venous duplex. 01/10/2023 XR foot Marked osteopenia/osteoporosis. No fracture or dislocation is [...] lower leg again noted, present in 2009. 1. Marked osteopenia/osteoporosis. Suggest DEXA scan for quantification if not previously obtained. 2. No acute fracture or radiographic evidence of stress reaction. If clinical concern for stress reaction or occult fracture, consider MRI for more sensitive assessment given the degree of osteopenia. I have personally reviewed the following images/data: duplex Impression: 67 y.o. female w/hx LLE DVT s/p L iliac venous stenting in setting protein C deficiency. Venous stents patent and stable exam since 2017. Prior RAFI noted 0.68, 2018 with moderate PAD, reviewed notes at that time had same foot pain, pt reports progressively worse. Foot warm, well perfused on exam with no pain at rest, only with palpation and standing. Unlikely rest pain from PAD, can repeat RAFI to ensure no change. Recommended xray foot in clinic, contacted pt afterwards noting marked bone loss in L foot without evidence of acute fracture. Discussed results w/patient and recommended referral to endocrinology for workup of unusual osteopenia in foot in setting of sheet-like calcifications in soft tissue of L leg. Unclear cause of L foot pain, low suspicions vascular etiology and recommend pt discuss w/PCP. Offered to facilitate with placement of referrals. Plan: - repeat RAFI to confirm no change - f/u 2 years DVT duplex - referral to endocrinology for severe bone loss and ortho for foot pain SIGNATURE: Tanja Lebron MD PATIENT NAME: Ender Kurtz DATE: January 10, 2023 TIME: 10:00 AM documented in this encounter Plan of Treatment Scheduled Referrals Name Type Priority Associated Diagnoses Order Schedule Referral to Endocrinology Outpatient Referral Routine Left foot pain Osteopenia, unspecified location Calcification of soft tissue Ordered: 01/16/2023 documented as of this encounter Results * RAFI, legs, multiple levels (03/19/2023 11:27 AM EDT) VB Text Report Department: Vascular Surgery Lab Patient: [id number] (ENDER KURTZ) CPT: 72764 Referring Physician: TANJA LEBRON MD ?? Phone: Indications: Patient with left foot pain, ? change in RAFI Diabetes mellitus: Yes Findings: Right ?Pressure (mm Hg) ?? RAFI ??Waveform ?TBI ?? Brachial Artery ?130 ? Dorsalis Pedis (Ankle) Artery ?77 ?0.59 ??Colbert-Biphasic ? Posterior Tibial (Ankle) Artery ??71 ?0.55 ??Colbert-Biphasic ? Great Toe ?47 ? 0.36 ?? Left ? Pressure (mm Hg) ?? RAFI ??Waveform ?TBI ?? Brachial Artery ?120 ? Dorsalis Pedis (Ankle) Artery ?74 ?0.57 ??Colbert-Biphasic ? Posterior Tibial (Ankle) Artery ??70 ?0.54 ??Colbert-Biphasic ? Great Toe ?28 ? 0.22 ?? [...] VASCUBASE 03/19/2023 11:2 7 AM EDT Tanja Lebron MD VASCULAR ORDERABLES VASCUBASE * XR Foot Min 3 views Left (Generic) (01/10/2023 11:02 AM EDT) Anatomical Region Laterality Modality Foot Left Digital Radiogra phy Impressions 01/10/2023 2:57 PM EDT 1. Marked osteopenia/osteoporosis. Suggest DEXA scan for quantification if not previously obtained. 2. No acute fracture or radiographic evidence of stress reaction. If clinical concern for stress reaction or occult fracture, consider MRI for more sensitive assessment given the degree of osteopenia. Thank you for letting us participate in the care of this patient. ??If you are a health care provider and have any questions regarding this report, please contact the number below. ??For patients who have questions please contact the health youth career specialist that requested your imaging first. ? Narrative 01/10/2023 2:57 PM EDT EXAMINATION: XR FOOT MIN 3 VIEWS LEFT (GENERIC) CLINICAL HISTORY: heterotopic ossification. ??Pain in midfoot, eval for HO, fracture or other pathology TECHNIQUE: 3 views LEFT foot COMPARISON: Left ankle radiographs 12/16/2009 FINDINGS: Marked osteopenia/osteoporosis. No fracture or dislocation [...] lower leg again noted, present in 2009. Procedure Note Jai Latif MD - 01/10/2023 EXAMINATION: XR FOOT MIN 3 VIEWS LEFT (GENERIC) CLINICAL HISTORY: heterotopic ossification. Pain in midfoot, eval forHO, fracture or other pathology TECHNIQUE: 3 views LEFT foot COMPARISON: Left ankle radiographs 12/16/2009 FINDINGS: Marked osteopenia/osteoporosis. No fracture or dislocation is identified.No periostitis or trabecular sclerosis is seen to suggest a stressresponse. Minimal subchondral sclerosis and osteophyte formation at the first MTPjoint consistent with mild degenerative change. Joint spaces are preserved. No erosions. Alignment at the Lisfranc joint is maintained. Longitudinalarch preserved. Posterior and plantar calcaneal spurs. Sheetlike soft tissuetissue ossification in the distal aspect of the lower leg again noted, present [id number]. IMPRESSION 1. Marked osteopenia/osteoporosis. Suggest DEXA scan for quantification ifnot previously obtained. 2. No acute fracture or radiographic evidence of stress reaction. Ifclinical concern for stress reaction or occult fracture, consider MRI for moresensitive assessment given the degree of osteopenia. Thank you for letting us participate in the care of this patient. If youare a health care provider and have any questions regarding this report,please contact the number below. For patients who have questions please contactthe health youth career specialist that requested your imaging first. Tanja Lebron MD IMG DX ORDERABLES documented in this encounter Visit Diagnoses Diagnosis Left foot pain Pain in limb Osteopenia, unspecified location Calcification of soft tissue Other disorders of soft tissue Left foot pain Pain in limb documented in this encounter Care Teams Yarn Tester Relationship Specialty Start Date End Date Renzo Castano APRN [address] [place] [address] PCP - General Family Medicine 05/31/21 documented as of this encounter
--- OUTSIDE RECORDS SUMMARY | 2024-03-21 14:00 | XMS_ITS | Encounter Summary ---
[place] [address] Care Team Providers Care Exhibit Designer Name Role Phone Jerman Powell MD Primary Care Provider [phone] Reason for Visit * Diagnostic Test (Routine) - Closed Specialty Diagnoses / Procedures Referred By Contac t Referred To Contact Radiology Diagnoses Enchondroma of right tibia Procedures NM Bone Scan 3 Phase Barbara, LD Jacobsen [facility] [place] [address] [place] [address] Referral ID Status Reason Start Date Expiration Date V isits Requested Visits Authorized [id number] Closed Specialty Service Requested 09/30/2019 03/30/2021 1 1 Encounter Details Date Type Department Care Team (Latest Contact Info) Description 10/15/2019 10:35 AM EST - 10/15/2019 11:59 PM [facility] Hospital Encounter [place] [address] Janina Solorzano MD [facility] DR [place] [address] Discharge Disposition: Home Social History Tobacco Use [...] Misc 1 Units by Other route. 06/17/2009 magnesium oxide (MAG-OX) 400 mg (241.3 mg magnesium) Tablet 0 01/12/2019 ONETOUCH ULTRA TEST Strip TEST TWO TIMES A DAY 5 03/12/2017 diphenoxylate-atropine (LOMOTIL) 2.5-0.025 mg Tablet Take 1 tablet by mouth 4 times daily as needed. 06/12/2017 ONE TOUCH DELICA 33 gauge Misc TEST TWO TIMES A DAY 4 03/12/2017 HYDROcodone-acetaminoph en (NORCO) 10-325 mg Tablet Take 1 tablet [...] capsule Take 1,500 mg by mouth daily. diclofenac (VOLTAREN) 1 % GelIndications:Primary osteoarthritis of [...] Fri 7.5mg Tues, Thur, Sat, Sun 04/17/2023 triamcinolone (KENALOG) 0.1 % Lotion Apply 1 Application topically as needed. 02/09/2017 05/31/2021 omeprazole (PRILOSEC) 20 mg capsule Take 20 mg by mouth nightly. 05/31/2021 documented as of this encounter Plan of Treatment Not on file documented as of this encounter Procedures Procedure Name Priority Date/Time Associated Diagnosis Comments NM BONE SCAN 3 PHASE Routine 10/15/2019 11:44 AM EST Enchondroma of right tibia documented in this encounter Results * NM Bone Scan [...] below. ? Electronically signed by: Randall Loomis [facility] ([phone]), at 10/15/2019 2:21 PM Narrative 10/15/2019 2:21 [...] this report, please contact the number below. Electronically signed by: Randall Loomis [facility]([phone]), at 10/15/2019 2:21 PM Janina Solorzano MD IMG NM ORDERABLES documented in this encounter Visit Diagnoses Not on filedocumented in this encounter Care Teams Exhibit Designer Relationship Specialty Start Date End Date Jerman Powell MD [address] [place] [address] PCP - General 05/30/11 05/30/21 documented as of this encounter
--- OUTSIDE RECORDS SUMMARY | 2024-03-21 14:00 | XMS_ITS | Encounter Summary ---
[place] [address] Care Team Providers Care Helper Teacher Name Role Phone Renzo Castano APRN Primary Care Provider [phone] Reason for Referral * Consultation (Routine) - Closed Specialty Diagnoses / Procedures Referred By Contjosette t Referred To Contact Rheumatology Diagnoses Calcinosis cutis Latia Osorio MD [facility] [employer] [place] [address] [facility] Rheumatology [address] [place] [phone] Referral ID Status Reason Start Date Expiration Date V isits Requested Visits Authorized [id number] Closed Consult, Test & Treat PCP Updated and/or Approved 03/04/2023 03/03/2024 6 6 Encounter Details Date Type Department Care Team (Late st Contact Info) Description 03/04/2023 Transcribe Orders eDH Incoming Referrals [phone] Latia Osorio MD [facility] [employer] [place], [place] [id number] Calcinosis cutis Social History Tobacco Use Types [...] Priority Associated Diagnoses Order Schedule Referral to Rheumatology Outpatient Referral Routine Calcinosis cutis Ordered: 03/04/2023 documented as of this encounter Visit Diagnoses Diagnosis Calcinosis cutis Degenerative skin disorder documented in this encounter Care Teams Helper Teacher Relationship Specialty Start Date End Date Renzo Castano APRN [address] [place] [address] [address] [place] [address] PCP - General Family Medicine 05/31/21 documented as of this encounter
--- OUTSIDE RECORDS SUMMARY | 2024-03-21 14:00 | XMS_ITS | Encounter Summary ---
Author Organization Count Includes [facility] Address [facility] [address] Care Team Providers Care Signal Technician Name Role Phone Jerman Powell MD Primary Care Provider [phone] Reason for Visit * Reason Onset Date Comments Injections 07/11/2019 Encounter Details Date Type Department Care Team (Late st Contact Info) Description 07/11/2019 [place] [id number] Barbara, LD Jacobsen [facility] [place] [address] Injections Social History Tobacco Use Types Packs/Day Years [...] on filedocumented in this encounter Care Teams Signal Technician Relationship Specialty Start Date End Date Jerman Powell MD [address] [place], [place] [id number] PCP - General 05/30/11 05/30/21 documented as of this encounter
--- OUTSIDE RECORDS SUMMARY | 2024-03-21 14:00 | XMS_ITS | Encounter Summary ---
Author Organization [facility] [place] [address] Care Team Providers Care Office Technician Name Role Phone Jerman Powell MD Primary Care Provider [phone] Encounter Details Date Type Department Care Team (Latest Contact Info) Description 08/06/2018 2:52 PM EST - 08/06/2018 11:59 PM [facility] Hospital Encounter [place] [address] Theo Aguilar, RVT May-Thurner syndrome; Intermittent claudication Discharge Disposition: Home Social History Tobacco Use [...] Misc 1 Units by Other route. 06/17/2009 ONETOUCH ULTRA TEST Strip TEST TWO TIMES A DAY 5 03/12/2017 diphenoxylate-atropin e (LOMOTIL) 2.5-0.025 mg Tablet Take 1 tablet by mouth 4 times daily as needed. 06/12/2017 ONE TOUCH DELICA 33 gauge Misc TEST TWO TIMES A DAY 4 03/12/2017 HYDROcodone-acetamino phen (NORCO) 10-325 mg Tablet Take 1 tablet [...] capsule Take 1,500 mg by mouth daily. aspirin 81 mg Tablet, Delayed Release (E.C.) Take 81 mg by mouth daily. 04/17/2023 dapsone 100 mg Tablet Take 75 mg by mouth. 11/26/2018 gabapentin (NEURONTIN) 300 mg Capsule Take 300 mg by mouth. 2018 warfarin (COUMADIN) 5 mg TabletIndications:5mg Mon, Wed, Fri 7.5mg Tues, Thur, Sat, Sun Take by mouth daily. Indications: 5mg Mon, Wed, Fri 7.5mg Tues, Thur, Sat, Sun 04/17/2023 chlorhexidine (PERIDEX) 0.12 % Mouthwash 07/24/2017 11/26/2018 loperamide (IMODIUM) 2 mg Capsule 07/27/2017 11/26/2018 triamcinolone (KENALOG) 0.1 % Lotion Apply 1 Application topically as needed. 02/09/2017 05/31/2021 MAGNESIUM ORAL Take 1,000 mg by mouth 3 times daily. 07/30/2019 omeprazole (PRILOSEC) 20 mg capsule Take 20 mg by mouth nightly. 05/31/2021 documented as of this encounter Plan of Treatment Not on file documented as of this encounter Procedures Procedure Name Priority Date/Time Associated Diagnosis Comments DUPLEX FOR DVT, LEG, UNILAT Routine 08/06/2018 2:59 PM EST May-Thurner syndrome RAFI, LEGS, MULTIPLE LEVELS Routine 08/06/2018 2:59 PM EST May-Thurner syndrome Intermittent claudication documented in this encounter Results * RAFI, legs, multiple levels (08/06/2018 2:59 PM EST) VB Text Report Department: Vascular Surgery Lab Patient: [id number] (ENDER KURTZ) CPT: 66917 ICD10: I73.9;I87.1 Referring Physician: ANDREA CROUCH ?? Indications: ??May Hi, leg pain, ? perfusion Diabetes mellitus: yes ICD10 Diagnosis Code: I73.9, I87.1 Findings: Right ?Pressure (mm Hg) ?? RAFI ??Waveform ?TBI ?? Brachial Artery ?133 ? Dorsalis Pedis (Ankle) Artery ?92 ?0.69 ??[place]-Biphasic ? Posterior Tibial (Ankle) Artery ??96 ?0.72 ??[place]-Biphasic ? Great Toe ?69 ? 0.52 ?? Left ? Pressure (mm Hg) ?? RAFI ??Waveform ?TBI ?? Brachial Artery ?132 ? Dorsalis Pedis (Ankle) Artery ?92 ?0.69 ??[place]-Biphasic ? Posterior Tibial (Ankle) Artery ??91 ?0.68 ??[place]-Biphasic ? Great Toe ?50 ? 0.38 ?? Interpretation: RIGHT: Moderate lower extremity arterial occlusive disease. No significant change compared to previous exam. LEFT: Moderate lower extremity arterial occlusive disease. No significant change compared to previous exam. Previous ABIs with change from previous value: Date ?RIGHT DP ?? RIGHT PT ?? RT GR TOE ??RT Sec TOE ??0.91 ? 0.92 ? ---- ? ---- ??0.58(-.33) 0.58(-.34) 0.46 ? ---- ??0.63(+.05) 0.64(+.06) 0.44(-.02) ---- ??0.79(+.16) 0.78(+.14) 0.54(+.10) ---- ??0.69(-.10) 0.74(-.04) 0.56(+.02) 0.36 Current ? 0.69( .00) 0.72(-.02) 0.52(-.04) ---- Date ?LEFT DP ?LEFT PT ?LT GR TOE LT Sec TOE ??0.85 ? 0.90 ? ---- ? ---- ??0.48(-.37) 0.54(-.36) 0.38 ? ---- ??0.61(+.13) 0.63(+.09) 0.32(-.06) ---- ??0.72(+.11) 0.73(+.10) 0.42(+.10) ---- ??0.65(-.07) 0.65(-.08) 0.36(-.06) 0.39 Current ? 0.69(+.04) 0.68(+.03) 0.38(+.02) ---- Electronically Signed by: HOLLIE DOBBINS on 2018-08-12 07:58:00 AM VASCUBASE VB Text Report End of Report VASCUBASE 08/06/2018 2:59 PM EST Andrea Crouch MD VASCULAR ORDERABLES VASCUBASE * Duplex for DVT, Leg, Unilat (08/06/2018 2:59 PM EST) VB Text Report Department: Vascular Surgery Lab Patient: [id number] (ENDER KURTZ) CPT: 07085 ICD10: I87.1 Referring Physician: ANDREA CROUCH ?? Indications: ??LEFT iliac vein, May Thurner, chronic DVT, ? change ICD10 Diagnosis Code: I87.1 LEFT: There is chronic appearing non-occlusive thrombus in one of the paired femoral veins from the prox through distal thigh into the popliteal vein. Otherwise, patent common femoral vein and popliteal [...] calcification of the tissue in the calf. Interpretation: LEFT: Non-occlusive thrombus in one of the paired femoral veins from the prox through distal thigh into the popliteal vein with no identifiable change compared to previous exam done 08/07/2017. Findings suggest chronic DVT, however, superimposed acute thrombus cannot be excluded by ultrasound. Cannot exclude non-occlusive DVT in the calf due to sub-optimal visualization. Electronically Signed by: HOLLIE DOBBINS on 2018-08-09 11:21:16 AM VASCUBASE VB Text Report End of Report VASCUBASE 08/06/2018 2:59 PM EST Andrea Crouch MD VASCULAR ORDERABLES VASCUBASE documented in this encounter Visit Diagnoses Diagnosis May-Thurner syndrome Compression of vein Intermittent claudication Peripheral vascular disease, unspecified documented in this encounter Care Teams Office Technician Relationship Specialty Start Date End Date Jerman Powell MD [address] [place] [address] PCP - General 05/30/11 05/30/21 documented as of this encounter
--- OUTSIDE RECORDS SUMMARY | 2024-03-21 14:00 | XMS_ITS | Encounter Summary ---
[place] [address] Care Team Providers Care Corporate Development Associate Name Role Phone Jerman Powell MD Primary Care Provider [phone] Reason for Visit * Reason Comments Left Knee Pain synvisc injection * High Dollar Medication (Routine) - Closed Specialty Diagnoses / Procedures Referred By Candelario rodriguez Referred To Contact Orthopaedics Diagnoses Chronic pain of left knee Procedures Auth Request for Medication BarbaraAlyssa PA [facility] [place] [address] [facility] [address] [place] [phone] Referral ID Status Reason Start Date Expiration Date V isits Requested Visits Authorized [id number] Closed Consult, Test & Treat 01/14/2019 01/14/2020 1 1 Encounter Details Date Type Department Care Team (Latest Contact Info) Description 01/21/2019 11:30 AM EDT Office [place] [address] BarbaraAlyssa PA [facility] [place] [address] Primary osteoarthritis of left knee (Primary Dx) Social History Tobacco Use Types [...] Sign Reading Time Taken Comments Blood Pressure 131/82 01/21/2019 11:27 AM EDT Pulse 104 01/21/2019 11:27 AM EDT Temperature - - Respiratory Rate - - Oxygen Saturation - - Inhaled Oxygen Concentration - - Weight 69.9 kg (154 lb) 01/21/2019 11:27 AM EDT verbal Height 157.5 cm (5' 2) 01/21/2019 11:27 AM EDT verbal Body Mass Index 28.17 01/21/2019 11:27 AM EDT documented in this encounter Progress Notes * Barbara, LD Jacobsen - 01/21/2019 11:30 AM EDT Patient presents today for procedure only visit, left knee Synvisc injection for left knee osteoarthritis. She was last seen in clinic proximally 1 week ago. At this point we recommend that she continue with conservative measures, initiate a course of PT for suspected MCL sprain. She reports that since that visit she has noticed some slight improvement. She does still endorse joint line pain, worse with weightbearing. After discussion of risks and benefits, she elected to proceed with Synvisc injection of the left knee. Please see procedure note below. Procedure I discussed the risks and benefits of injecting the joint with Synvisc One such as, pseudo sepsis, bleeding, infection, and failure to alleviate symptoms. The patient verbalized understanding and chose to proceed with the procedure. The skin about bilateral knees was sterilely prepped with Chloraprep. After numbing the skin with ethyl chloride spray, the right then left knee was injected using the anterolateral approach with 48mg/6mL Synvisc One using #22 gauge needles. A bandaid was applied tothe injection sites. The patient tolerated the procedure well and is without complication. He was advised to keep the bandaid on until the wound has closed. He was also advised to report and signs orsymptoms of infection in the joint such as redness, swelling, drainage, or fever immediately. Lot/exp [id number] 2021-04 We discussed that if these injections are effective she can have 2/year, 1 injection every 6 months. We discussed that she may also stagger these with cortisone injections. She will return to clinic on an as-needed basis if symptoms persist, progress, she would like to proceed with repeat injection. Questions were solicited and answered. She agrees with this plan. LD Echavarria documented in this encounter Plan of Treatment Not on file documented as of this encounter Visit Diagnoses Diagnosis Primary osteoarthritis of left knee- Primary Primary localized osteoarthrosis, lower leg documented in this encounter Administered Medications Inactive Administered Medications - up to 3 most recent administrations Medication Order MAR Action Action Date Dose Rate Site Hylan G-F 20 (SYNVISC-ONE) Syrg 48 mg 48 mg, Intra-articular, ONCE, On Sun01/21/19 at 1245, 1 dose Given 01/21/2019 12:26 PM EDT 48 mg documented in this encounter Care Teams Corporate Development Associate Relationship Specialty Start Date End Date Jerman Powell MD [address] [place] [address] PCP - General 05/30/11 05/30/21 documented as of this encounter
--- OUTSIDE RECORDS SUMMARY | 2024-03-21 14:00 | XMS_ITS | Encounter Summary ---
Author Organization [facility] Address [facility] [place] [address] Care Team Providers Care Business Architect Name Role Phone Jerman Powell MD Primary Care Provider [phone] Reason for Referral * Physical Therapy (Routine) - Specialty Diagnoses / Procedures Referred By Contac t Referred To Contact Physical Therapy Diagnoses Knee strain, left, initial encounter Barbara, LD Jacobsen [facility] [place] [address] Referral ID Status Reason Start Date Expiration Date V isits Requested Visits Authorized [id number] Evaluate and Treat 01/21/2019 07/20/2019 12 12 Encounter Details Date Type Department Care Team (Late st Contact Info) Description 01/21/2019 [place] [address] BarbaraAlyssa PA [facility] [place] [address] Knee strain, left, initial encounter (Primary Dx) Social History Tobacco Use Types [...] Associated Diagnoses Orde r Schedule Referral to Physical Therapy Outpatient Referral Routine Knee strain, left, initial encounter Ordered: 01/21/2019 documented as of this encounter Visit Diagnoses Diagnosis Knee strain, left, initial encounter- Primary documented in this encounter Care Teams Business Architect Relationship Specialty Start Date End Date Jerman Powell MD [address] [place] [address] PCP - General 05/30/11 05/30/21 documented as of this encounter
--- OUTSIDE RECORDS SUMMARY | 2024-03-21 14:00 | XMS_ITS | Encounter Summary ---
[place] [address] Care Team Providers Care Geospatial Applications Developer Name Role Phone Renzo Castano APRN Primary Care Provider [phone] Encounter Details Date Type Department Care Team (Late st Contact Info) Description 01/10/2023 8:30 AM EDT Tech [place] [address] Clotilde Rincon, RVT May-Thurner syndrome Social History Tobacco Use Types [...] Procedure Name Priority Date/Time Associated Diagnosis Comments IVC LIMITED Routine 01/10/2023 8:50 AM EDT May-Thurner syndrome DUPLEX FOR DVT, LEG, UNILAT Routine 01/10/2023 8:50 AM EDT May-Thurner syndrome documented in this encounter Results * Duplex for DVT, Leg, Unilat (01/10/2023 8:50 AM EDT) VB Text Report Department: Vascular Surgery Lab Patient: [id number] (ENDER KURTZ) CPT: 00303 Referring Physician: ASAEL JIMENEZ APRN ?? Indications: LEFT iliac vein, May Thurner, chronic DVT, ? change Electronicall y Signed by: TANJA LEBRON MD on 2023-01-11 11:59:34 PM VASCUBASE VB Text Report End of Report VASCUBASE 01/10/2023 8:50 AM EDT Asael Jimenez APRN VASCULAR ORDERABLE S VASCUBASE * Duplex Study IVC/Iliac, Limited (01/10/2023 8:50 AM EDT) VB Text Report Department: Vascular Surgery Lab Patient: [id number] (ENDER KURTZ) CPT: 23310 Referring Physician: ASAEL JIMENEZ APRN ?? Indications: [...] vein documented in this encounter Care Teams Geospatial Applications Developer Relationship Specialty Start Date End Date Renzo Castano APRN [address] [place] [address] PCP - General Family Medicine 05/31/21 documented as of this encounter
--- OUTSIDE RECORDS SUMMARY | 2024-03-21 14:00 | XMS_ITS | Encounter Summary ---
[place] [address] Care Team Providers Care Lpn Per Diem Name Role Phone Jerman Powell MD Primary Care Provider [phone] Reason for Referral * High Dollar Medication (Routine) - Closed Specialty Diagnoses / Procedures Referred By Contac t Referred To Contact Orthopaedics Diagnoses Primary osteoarthritis of right knee Procedures Auth Request for Medication TC SYNVISC/SYNVISC-ONE, 1MG, INTRA-ARTICULAR INJECTION SYNVISC-ONE BarbaraAlyssa PA [facility] [place] [address] [facility] [address] [place] [phone] Referral ID Status Reason Start Date Expiration Date V isits Requested Visits Authorized [id number] Closed Consult, Test & Treat 07/30/2019 07/29/2020 1 1 Reason for Visit * Reason Comments Right Knee Pain Discuss Synvisc Inj * Consultation (Routine) - Closed Specialty Diagnoses / Procedures Referred By Contac t Referred To Contact Orthopaedics Diagnoses Right Knee Pain-Discuss Synvisc injection Self mail BarbaraAlyssa PA [facility] [place] [address] Referral ID Status Reason Start Date Expiration Date V isits Requested Visits Authorized [id number] Closed Consult, Test & Treat 07/11/2019 07/10/2020 1 1 Encounter Details Date Type Department Care Team (Latest Contact Info) Description 07/30/2019 9:45 AM EST Office Visit Orthopaedics at [facility] [place] [address] Barbara, LD Jacobsen [facility] [address] [place] [address] Primary osteoarthritis of right knee (Primary Dx) Social History Tobacco Use [...] Sign Reading Time Taken Comments Blood Pressure 124/70 07/30/2019 9:23 AM EST Pulse 98 07/30/2019 9:23 AM EST Temperature - - Respiratory Rate - - Oxygen Saturation - - Inhaled Oxygen Concentration - - Weight 61.2 kg (135 lb) 07/30/2019 9:23 AM EST v erbal Height 157.5 cm (5' 2) 07/30/2019 9:23 AM EST Body Mass Index 24.69 07/30/2019 9:23 AM EST documented in this encounter Progress Notes * Barbara, LD Jacobsen - 07/30/2019 9:45 AM EST Images from the original note were not included. Department of Orthopaedics Division of Adult Joint Reconstructive Surgery CHIEF COMPLAINT: Chief Complaint Patient presents with ??? Right Knee Pain Discuss Synvisc Inj ARTHROPLASTY HISTORY/PREVIOUS KNEE SURGERY: 1. none Janna [...] right knee pain. She reports thatthe right knee has become increasingly symptomatic over the past few weeks. She reports that several months ago she broke both bones in her left leg. She was treated in outside hospital and did notrequire surgery. She reports that due to this injury she relied more heavily on her right leg and had increased pain in the right knee. She reports pain at rest and with weightbearing. She has been taking rwfz-kef-okksvfh analgesics, with limited relief. She is interested in trying another Synvisc injection. QUESTIONNAIRE RESPONSES: General Health, Prior Treatments, PreExisting Condition, Health Habits, About You 07/30/2019 PROMIS-10 General Health Fair PROMIS-10 Quality of Life Fair PROMIS-10 Physical Health Fair PROMIS-10 Mental Health Good PROMIS-10 Social Activity Fair PROMIS-10 Everyday Activities A little PROMIS-10 Pain 6 PROMIS-10 Fatigue Moderate PROMIS-10 Social Roles Fair PROMIS-10 Anxious or Depressed Often PROMIS PHYSICAL SCORE (range 16-68) 34.9 PROMIS MENTAL SCORE (range 21-68) 36.3 Treatments Tried Heat and ice therapy, Walking aids (e.g.cane, walker), Physical therapy, Medicinesapplied on the skin (topical), Narcotics/opiods (Percocet, codeine, hydrocodone) Prior Surgery - KOOS JR Scores 47.49 TKA Grade 8 Alzheimers or dementia No Cirrohosis or liver disease No HIV/AIDS No Pain in more than one joint in legs Yes Back or neck pain No Heart attack No Heart failure No Unclog/bypass leg arteries Yes Stroke, blood clot, TIA Yes Difficulty moving arm/leg No Asthma No Emphysema, chronic bronchities, or COPD - Stomach ulcers/peptic ulcer disease No Diabetes No Diabetes caused problems with kidneys - Diabetes caused problems with eyes - Poor kidney function No Rheumatic condtions No Cancer No Weight (lbs) 135 Height (feet) 5 feet Height (Inches) 2 BMI 24.68 (Normal) Ever used tobacco products Yes Tobacco frequency Daily or almost daily WHO - Tobacco Advice 6 (You are at risk of health and other problems from your current pattern of tobacco use.) Ever used alcoholic beverages Yes Alcohol frequency Never WHO - Alcohol Advice 0 (You are at low risk of health and other problems from your current pattern of use.) Live Alone No Marital situation - Schooling Some high school, but did not graduate Combined Household Income $25,000 to less than $35,000 # People Supported 3 American, , No, not American// Race White Health Literacy Extremely Currently working Yes Current job situation Full-time [facility] Response 07/30/2019 KOOS JR Scores 47.49 ASES VAS-LEFT - ASES ADL-LEFT ARM - ASES LEFT ARM - Spine [facility] Response 07/30/2019 KOOS JR Scores 47.49 ALLERGIES Allergies Allergen Reactions ??? Adhesive Tape [...] VITALS: BP Readings from Last 1 Encounters: 07/30/19 124/70 Pulse Readings from Last 1 Encounters: 07/30/19 98 Height: 157.5 cm (5' 2) Weight: 61.2 kg (135 lb)(verbal) Body mass index is 24.69 kg/m??. PHYSICAL EXAM: Constitution: Janna Junior sits [...] test: negative Patellar compression test: positive Tenderness: medial joint line and lateral joint line IMAGING: X-rays of the right knee demonstrate shows DJD changes, likely chronic. ASSESSMENT AND PLAN:Ms. Junior is a 63 y.o. year old female with moderate osteoarthritis of her right knee. Reviewed patient's physical exam findings and imaging with her. We discussed that she does have bilateral knee osteoarthritis, worse in the medial compartments. We again discussed conservative treatment options including activity modification, use of a brace, ice, physical therapy, oral analgesics.We also discussed cortisone and Visco supplementation. She would like to continue with her home exercise program. She reports good relief with Voltaren gel and requests a refill. [facility] to [facility]. She is interested in trying another round of Visco supplementation. We will place the insurance preapproval for this. She reports that her last round of injections worked extremely well andprovided robust relief until her left leg injury. She will return to clinic on an as-needed basis if symptoms persist, progress, for injection. Questions were solicited and answered. She agrees with this plan. LD Echavarria documented in this encounter Plan of Treatment Not on file documented as of this encounter Visit Diagnoses Diagnosis Primary osteoarthritis of right knee- Primary Primary localized osteoarthrosis, lower leg documented in this encounter Care Teams Lpn Per Diem Relationship Specialty Start Date End Date Jerman Powell MD [address] [place] [address] PCP - General 05/30/11 05/30/21 documented as of this encounter
--- OUTSIDE RECORDS SUMMARY | 2024-03-21 14:00 | XMS_ITS | Encounter Summary ---
[place] [address] Care Team Providers Care Builder Operator Name Role Phone Jerman Powell MD Primary Care Provider [phone] Reason for Visit * Reason Onset Date Comments Results 10/21/2019 Encounter Details Date Type Department Care Team (Late st Contact Info) Description 10/21/2019 Telephone [place] [id number] Sherrie Whyte, RN Results Social History Tobacco Use Types Packs/Day Years [...] encounter Miscellaneous Notes * Telephone Encounter - Markus Nunez - 10/23/2019 1:14 PM EST Mrs. Junior calls and would like a call back with her results from her bone scan that was completed on 10/15/19. Routed to Dr. Solorzano's team for review * Telephone Encounter - Sherrie Whyte, RN - 10/21/2019 2:01 PM EST Enchondroma of R Tibia, office visit, 09/30/2019, LD Maddox Mrs Junior called and requested a call back for Bone Scan results Best Call Back: [phone] documented in this encounter Plan of Treatment Not on file documented as of this encounter Visit Diagnoses Not on filedocumented in this encounter Care Teams Builder Operator Relationship Specialty Start Date End Date Jerman Powell MD [address] [place] [address] PCP - General 05/30/11 05/30/21 documented as of this encounter
--- OUTSIDE RECORDS SUMMARY | 2024-03-21 14:00 | XMS_ITS | Encounter Summary ---
Author Organization [facility] [place] [address] Care Team Providers Care Ledger Poster Name Role Phone Jerman Powell MD Primary Care Provider [phone] Reason for Visit * Reason Onset Date Comments Leg Injury 02/24/2019 Femur fracture Encounter Details Date Type Department Care Team (Late st Contact Info) Description 02/24/2019 Telephone [place] [phone] Svetlana Castano RN Leg Injury (Femur fracture) Social History Tobacco Use Types Packs/Day Years [...] encounter Miscellaneous Notes * Telephone Encounter - Afua Jay - 03/03/2019 8:08 AM EDT Letter Sent * Telephone Encounter - Afua Jay - 02/26/2019 12:43 PM EDT LM #2 to complete intake and request imaging per previous note. * Telephone Encounter - Apryl Winslow - 02/24/2019 2:09 PM EDT LM#1 to create a referral, complete intake and get imaging here for nurse review for this femur Fracture * Telephone Encounter - Svetlana Castano RN - 02/24/2019 10:38 AM EDT Patient called back the Ortho Call Center wanting a follow up appointment maksim regarding a femur fracture. I instructed patient that there is no documentation, referral or MRI imaging that has beenreceived regarding the femur fracture. Patient states she has been seeing LD Maddox for a meniscus tear but it turned out to be a fracture. Patient states she does not want to wait on hold for the construction secretary. I stated I will have one of the Ortho secretaries call patient back to do an intake, get imaging and make an appointment. I also stated I will inform Alyssa Jimenez regarding the femur fracture. * Telephone Encounter - Svetlana Castano RN - 02/24/2019 10:14 AM EDT Patient called would like to have care in the Ortho clinic at [facility]. Patient reports she fell 1 weekago and had an MRI as per her PCP. She was told she has a femur fracture. I directed her to the Ortho secretaries who could assist with referring her into the Orthopaedic clinic at [facility]. documented in this encounter Plan of Treatment Not on file documented as of this encounter Visit Diagnoses Not on filedocumented in this encounter Care Teams Ledger Poster Relationship Specialty Start Date End Date Jerman oPwell MD [address] [place] [address] PCP - General 05/30/11 05/30/21 documented as of this encounter
--- OUTSIDE RECORDS SUMMARY | 2024-03-21 14:00 | XMS_ITS | Encounter Summary ---
[place] [address] Care Team Providers Care Store Merchandiser Name Role Phone Jerman Powell MD Primary Care Provider [phone] Reason for Referral * Diagnostic Test (Routine) - Closed Specialty Diagnoses / Procedures Referred By Contac t Referred To Contact Radiology Diagnoses Enchondroma of right tibia Procedures NM Bone Scan 3 Phase Alyssa Jimenez PA [facility] [place] [address] [place] [address] Referral ID Status Reason Start Date Expiration Date V isits Requested Visits Authorized [id number] Closed Specialty Service Requested 09/30/2019 03/30/2021 1 1 Reason for Visit * Diagnostic Test (Routine) - Closed Specialty Diagnoses / Procedures Referred By Contac t Referred To Contact Radiology Diagnoses Enchondroma of right tibia Procedures NM Bone Scan 3 Alyssa Ralph PA [facility] DR [place] [address] [place] [address] Referral ID Status Reason Start Date Expiration Date V isits Requested Visits Authorized [id number] Closed Specialty Service Requested 09/30/2019 03/30/2021 1 1 Encounter Details Date Type Department Care Team (Latest Contact Info) Description 10/15/2019 7:50 AM EST - 10/15/2019 10:34 AM [facility] Hospital Encounter Nuclear Medicine at [facility] [place] [address] Janina Solorzano MD [facility] [address] [place] [address] Enchondroma of right tibia Discharge Disposition: Home Social History Tobacco Use [...] the number below. ? Electronically signed by: TEAGAN [facility] [address] [facility] ([phone]), at 10/15/2019 2:21 PM Narrative 10/15/2019 2:21 [...] number below. Electronically signed by: Randall Loomis [facility]([phone]), at 10/15/2019 2:21 PM Janina COLLINS NM ORDERABLES documented in this encounter Visit Diagnoses Diagnosis Enchondroma of right tibia documented in this encounter Administered Medications Inactive Administered Medications - up to 3 most recent administrations Medication Order MAR Action Action Date Dose Rate Site technetium (Tc-99m) methylene diphosphonate (MDP) injection 25 mCi 25 mCi, Intravenous, ONCE PRN, 1 dose, Starting on Sun10/15/19 at 0810, Until Sun10/15/19 at 0810, Per Protocol, IV: R-FOREARM, Routine Given 10/15/2019 8:10 AM EST 25 mCi documented in this encounter Care Teams Store Merchandiser Relationship Specialty Start Date End Date Jerman Powell MD [address] [place] [address] PCP - General 05/30/11 05/30/21 documented as of this encounter
--- OUTSIDE RECORDS SUMMARY | 2024-03-21 14:00 | XMS_ITS | Encounter Summary ---
Author Organization [facility] [place] [address] Care Team Providers Care Human Services Instructor Name Role Phone Renzo Castano APRN Primary Care Provider [phone] Encounter Details Date Type Department Care Team (Late st Contact Info) Description 05/31/2021 Refill Dermatology at [address] [place] [address] Marlys Shell, DIRECTOR CORPORATE SALES Social History Tobacco Use Types Packs/Day Years [...] on filedocumented in this encounter Care Teams Human Services Instructor Relationship Specialty Start Date End Date Renzo Castano APRN [address] [place] [address] [address] [place] [address] PCP - General Family Medicine 05/31/21 documented as of this encounter
--- OUTSIDE RECORDS SUMMARY | 2024-03-21 14:00 | XMS_ITS | Encounter Summary ---
[place] [address] Care Team Providers Care Fast Food Crew Lead Name Role Phone Renzo Castano APRN Primary Care Provider [phone] Encounter Details Date Type Department Care Team (Latest Contact Info) Description 01/10/2023 Travel Social History Tobacco Use Types Packs/Day [...] on filedocumented in this encounter Care Teams Fast Food Crew Lead Relationship Specialty Start Date End Date Renzo Castano APRN [address] [place], [place] [id number] PCP - General Family Medicine 05/31/21 documented as of this encounter
--- OUTSIDE RECORDS SUMMARY | 2024-03-21 14:00 | XMS_ITS | Encounter Summary ---
[place] [address] Care Team Providers Care Vacuum System Tester Name Role Phone Jerman Powell MD Primary Care Provider Reason for Visit * Reason Onset Date Comments Other 01/10/2019 Encounter Details Date Type Department Care Team (Late st Contact Info) Description 01/10/2019 [place] [phone] Karin Marquez Other Social History Tobacco Use Types Packs/Day [...] encounter Miscellaneous Notes * Telephone Encounter - Karin Marquez - 01/10/2019 8:56 AM EDT Caller and relationship to patient (if other than patient): Grupo, Spouse Best time to reach caller: any Message or Reason for Call: Grupo called for his Janna. They were under the impression that Janna was going to be set up in [place] for Physical Therapy however they have not heard anything. Please call him back to discuss Appt Needed and Reason: n/a Provider: Alyssa Jimenez documented in this encounter Plan of Treatment Not on file documented as of this encounter Visit Diagnoses Not on filedocumented in this encounter Care Teams Vacuum System Tester Relationship Specialty Start Date End Date Jerman Powell MD [address] [facility] [address] [place] [address] PCP - General 05/30/11 05/30/21 documented as of this encounter
--- OUTSIDE RECORDS SUMMARY | 2024-03-21 14:00 | XMS_ITS | Encounter Summary ---
Author Organization [facility] Address [facility] [place] [address] Care Team Providers Care Vacuum Drum Drier Operator Name Role Phone Jerman Powell MD Primary Care Provider [phone] Reason for Visit * Consultation (Routine) - Closed Specialty Diagnoses / Procedures Referred By Contac t Referred To Contact Neurology Diagnoses Iliac vein thrombosis, left Neuropathy Atherosclerosis of lytton artery of both lower extremities, with unspecified presence of clinical manifestation Mallika Jimenez, TESTER OPERATOR [facility] [place] [address] [facility] Neurology [address] [place] [phone] Referral ID Status Reason Start Date Expiration Date V isits Requested Visits Authorized [id number] Closed Consult, Test & Treat 08/06/2018 08/06/2019 1 1 Encounter Details Date Type Department Care Team (Latest Contact Info) Description 11/26/2018 10:30 AM EDT Procedure [place] [address] Juan Miguel Mi MD [facility] [place] [address] Mendoza Trejo MD [facility] [place] [address] Left foot pain (Primary Dx); Paresthesias; Muscular atrophy, unspecified site; Type 2 diabetes mellitus with diabetic neuropathy, without long-term current use of insulin Social History Tobacco Use Types Packs/Day Years [...] Sign Reading Time Taken Comments Blood Pressure 107/45 11/26/2018 10:26 AM EDT Pulse 98 11/26/2018 10:26 AM EDT Temperature - - Respiratory Rate - - Oxygen Saturation - - Inhaled Oxygen Concentration - - Weight 71.2 kg (157 lb) 11/26/2018 10:26 AM EDT Reported Height 157.5 cm (5' 2) 11/26/2018 10:26 AM EDT Reported Body Mass Index 28.72 11/26/2018 10:26 AM EDT documented in this encounter Progress Notes * Mendoza Trejo MD - 11/26/2018 10:30 AM EDT Neurology [facility] Out[facility] - Initial Encounter Patient name: Janna Junior Date of : 1955 PCP: Jerman Powell MD Clinic Attending: Dr. Mi CC: My left foot hurts. HPI: Janna Junior is a 62 y.o. right-handed woman with DMII, HLD, GERD, Celiac disease, migraines,obesity, depression, a history of ?lumbar spinal stenosis, right carpal tunnel syndrome, left ulnarneuropathy, and a history of prior PE and peripheral artery disease with known L>R claudication with May Thurner Syndrome s/p L iliac vein stenting in 2009 on warfarin, with chronic left leg and foot pains for decades, who presents to the neuromuscular clinic for evaluation of focal anterior left foot pains present for the past year. She has chronic lower back pain that remains focal to her back and does not radiate into her leg. In the past I had that sciatic problem that went from my back down into my [left] leg, and went to therapy, but it's not going down to my leg right now. 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 For the past year I've had a sharp pain over the top of my foot [over the first web space between her great toe and 2nd digit], I couldn't even touch it, and I couldn't walk very well either They told me I have to be off coumadin for 7 days if I have a nerve block. I'll get a blood clot. If I dothat, I want to make sure it's a nerve thing first, so that's why I'm here. She cannot think of any thing new or different in her life around the time of symptom onset, and as far as she can remembershe had no medication changes and had no traumas. She has had diabetes for the past 7+ years and has not needed insulin. I might have a little bit of neuropathy because I'm a diabetic. She only rarely has paresthesias sometimes its numb, sometimes its tingling, but I only have 60 percent blood flow in that leg. After I work all day my foot anna. I have pain in my legs all of the time, but the right one isn't as bad as the left one is. Since she started having leg claudication she has noticed that she slaps her left foot when she walks; this has not changed for many years. She has not fallen. She has frequent bowel movements but has no other bowel issues and has no problems with bladder function. She has some intermittent swelling in her hands but has no paresthesias or dysesthesias. They did a good job with the carpal tunnel surgery on the right. Aside from the above, she denies any other paresthesias, dysesthesias, weakness of any kind, visualchanges, or any other neurological or constitutional symptoms of any kind on a comprehensive reviewof systems. She has no other concerns at this time. Past Medical & Surgical History: Past medical history, including problem list, past medical conditions, family history, social history, allergies, surgical history, and current medications were reviewed with the patient and updated as appropriate in the electronic record. Patient Active Problem List Diagnosis ??? Leg [...] ??? Right knee pain ??? Celiac disease Past Medical History: Diagnosis Date ??? May-Thurner syndrome Past Surgical History: Procedure Laterality Date ??? CHOLECYSTECTOMY, LAPAROSCOPIC 03/18/1992 ??? VASCULAR SURGERY Left 10/01/2009 Balloon angioplasty and stenting of left common iliac vein stenosis ??? VASCULAR SURGERY Left 01/30/2014 Left iliac vein stent SCREEN VENT BINDER Medications: Current Outpatient Medications on File Prior to Visit Medication Sig Dispense Refill ??? aspirin 81 mg Tablet, Delayed Release (E.C.) Take 81 mg by mouth daily. ??? Miscellaneous Medical Supply [facility] 1 Units. ??? dapsone 100 mg Tablet Take 75 mg by mouth. ??? gabapentin (NEURONTIN) 300 mg Capsule Take 300 mg by mouth. ??? warfarin (COUMADIN) 5 mg Tablet Take 5 mg by mouth. ??? ONETOUCH ULTRA TEST Strip TEST TWO TIMES A DAY 5 ??? chlorhexidine (PERIDEX) 0.12 % Mouthwash ??? diphenoxylate-atropine (LOMOTIL) 2.5-0.025 mg Tablet ??? ONE TOUCH DELICA 33 gauge Misc TEST TWO TIMES A DAY 4 ??? loperamide (IMODIUM) 2 mg Capsule ??? triamcinolone (KENALOG) 0.1 % Lotion ??? HYDROcodone-acetaminophen (NORCO) 10-325 mg Tablet Take 1 tablet by mouth every 6 hours as needed for Pain. ??? baclofen (LIORESAL) 10 mg Tablet Take 10 mg by mouth 2 times daily. ??? metFORMIN (GLUCOPHAGE) 1,000 mg tablet Take 1,000 mg by mouth 2 times daily (with meals). ??? amitriptyline (ELAVIL) 10 mg tablet Take 20 mg by mouth nightly. ??? MAGNESIUM ORAL Take by mouth daily. ??? dapsone (ACZONE) 25 mg tablet Take 2 tablets by mouth 2 times daily. 120 tablet 5 ??? omeprazole (PRILOSEC) 20 mg capsule Take 20 mg by mouth nightly. ??? gabapentin (NEURONTIN) 300 mg capsule Take 1,500 mg by mouth daily. No current facility-administered medications on file prior to visit. Allergy: Allergies Allergen Reactions ??? Adhesive Tape Rash ??? Wheat Bran Rash ??? Wheat Flour Rash ??? Wheat Germ Oil Rash ??? Wheat Starch Rash Family History: No family history on file. Social History: Social History Socioeconomic History ??? Marital status: Spouse name: Not on file ??? Number of children: Not on file ??? Years of education: Not on file ??? Highest education level: Not on file 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 History ??? 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 Financial resource strain: Not on file ??? Food insecurity: Worry: Not on file Inability: Not on file ??? Transportation needs: Medical: Not on file Non-medical: Not on file Tobacco Use ??? Smoking status: Current Every Day Smoker Packs/day: 0.50 ??? Smokeless tobacco: Never Used Substance and Sexual Activity ??? Alcohol use: No ??? Drug use: No ??? Sexual activity: Not on file Lifestyle ??? Physical activity: Days per week: Not on file Minutes per session: Not on file ??? Stress: Not on file Relationships ??? Social connections: Talks on phone: Not on file Gets together: Not on file Attends sabianist service: Not on file Active member of club or organization: Not on file Attends meetings of clubs or organizations: Not on file Relationship status: Not on file ??? Intimate partner violence: Fear of current or ex partner: Not on file Emotionally abused: Not on file Physically abused: Not on file Forced sexual activity: Not on file Other Topics Concern ??? Not on file Social History Narrative ??? Not on file Review of systems: A 14-point review of systems was conducted and pertinant positives and negatives recorded in the HPI. Other than those points recorded in the HPI, all system reviewed are negative. Physical Exam: Vitals: Gen: Appears slightly older than stated age, well nourished, well developed, in NAD Neck: Supple, no meningismus CV: RRR Resp: Even unlabored respirations Ext: 1-2+ non-pitting edema over LLE, no bony deformity Neuro Exam: MS: A&Ox4, clear language without expressive or receptive aphasia, able to repeat and name objects, no dysarthria, follows commands CN: PERRL, EOMI, visual larios full Facial sensation intact, no facial asymmetry Hearing somewhat impaired BL Palate elevates symmetrically, tongue protrudes midline without atrophy or fasciculations SCM and trap strength intact Motor: Normal tone. Somewhat decreased bulk in entire leg including quadriceps bilaterally, (-)Pronator drift BL, (-)Asterixis UE: 5/5 R, 5/5 L Arm abduction at shoulder 5/5 R, 5/5 L Elbow extension 5/5 R, 5/5 L Elbow flexion 5/5 R, 5/5 L Wrist extension 5/5 R, 5/5 L Wrist flexion 5/5 R, 5/5 L Wrist pronation 5/5 R, 5/5 L Wrist supination 5/5 R, 5/5 L Finger extension 5/5 R, 5/5 L Finger flexion 5/5 R, 5/5 L Still Operator 5/5 R, 5/5 L Interossei 5/5 R, 5/5 L ABP 5/5 R, 5/5 L Thumb flexion LE: 5/5 R, 5/5 L Hip flexion 5/5 R, 5/5 L Knee extension 5/5 R, 5/5 L Knee flexion 5/5 R, 5/5 L Foot inversion 5/5 R, 5/5 L Foot eversion 5/5 R, 5/5 L Great toe extension 5/5 R, 5/5 L Foot dorsiflexion 5/5 R, 5/5 L Foot plantar flexion Sensation: Subtly diminished temperature and light touch in a stocking distribution BL but grossly intact, with a sense of buzzing on light touch over the first web space of her left foot between her 1st and 2nd digits as well as over the anterior surface of her left foot to her ankle Vibration sensation diminished from knees to toes BL Proprioception intact in BL great toes Reflexes: DTRs 2+ R, 2+ L Biceps 2+ R, 2+ L Brachioradialis 2+ R, 2+ L Triceps 1+ R, 1+ L Patellar Trace R, Trace L Achilles tendon Toes - R down, L down Coordination: Finger to nose intact with no dysmetria Rapid alternating movements & finger tapping smooth and symmetric Heel-sousa intact BL Foot tapping slow and slightly incoordinated BL No tremor at rest or with motion Gait: (-)Romberg, gait is stable and steady, able to walk on tip toes, heels, and in-tandem withoutissues Labs: No results found for this or any previous visit (from the past 24 hour(s)). Diagnostic Tests and Imaging: Available prior notes and data reviewed. Assessment / Plan: Janna Junior is a 62 y.o. right-handed woman with DMII, HLD, GERD, Celiac disease, migraines,obesity, depression, a history of ?lumbar spinal stenosis, right carpal tunnel syndrome, left ulnarneuropathy, and a history of prior PE and peripheral artery disease with known L>R claudication with May Thurner Syndrome s/p L iliac vein stenting in 2009 on warfarin, with chronic left leg and foot pains for decades, who presents to the neuromuscular clinic for evaluation of focal anterior left foot pains present for the past year. On electrodiagnostic testing today, the abnormalities of nerve conduction, late responses, and EMG are consistent with a left peroneal nerve injury. She was unable to tolerate the entire needle exam,but there was no clearcut electrodiagnostic evidence of radiculopathy on the left. Of note, the asymmetry of the bilaterally reduced sural SNAP amplitude may be related to technical factors secondaryto significant edema in her left leg, and also reflects a mild peripheral neuropathy. Also of note,she had decreased muscle bulk in her entire leg bilaterally including the quadriceps. It is likely her symptoms are related to her known left leg pathology in the setting of diabetes and less likely r adicular in etiology, but further evaluation with MRI L-spine is warranted to evaluate for stenosis, compression, or other pathology. She will also be sent to the lab today to obtain a current HbA1c and CK level, though a myopathic process may be less likely. She is planning to hold off on undergoing any sort of focal nerve block unless her pain becomes more severe as she is concerned about her ri sk of complications from briefly discontinuing her anticoagulation, and as her pain is not currently bothersome. Following the above studies, she will return to the neuromuscular clinic for a follow up appointment in 3 months to evaluate the progression of symptoms, or sooner if needed. She has no other questions or concerns at this time. Seen with Dr. Mi. Mendoza Trejo MD Clinical Neurophysiology Fellow Personal Pager #[phone] * Juan Miguel Mi MD - 11/26/2018 10:30 AM EDT ... I saw and evaluated the patient with Dr. Trejo. I have reviewed the resident's history during the visit and I agree with the details as written. My neurological examination confirms the resident's findings. The assessment and plan were formulated in discussion with me at the time of the visit and I agree with them as documented. Discussed at length with patient about diagnostic considerations. Explained diagnosis and treatment. Patient understands and accepts our plan. .Juan Miguel Mi MD documented in this encounter Plan of Treatment Not on file documented as of this encounter Procedures Procedure Name Priority Date/Time Associated Diagnosis Comments HEMOGLOBIN A1C Routine 11/26/2018 12:12 PM EDT Type 2 diabetes mellitus with diabetic neuropathy, without long-term current use of insulin Paresthesias Left foot pain Muscular atrophy, unspecified site CK Routine 11/26/2018 12:12 PM EDT Paresthesias Left foot pain Muscular atrophy, unspecified site documented in this encounter Results * Hemoglobin A1c (11/26/2018 12:12 PM EDT) Hemoglobin A1C 4.8 4.3 - 5.6 % [facility] Comment: Reference Range: 4.3 [...] Mellitus, Diabetes Care 2013; 36: Suppl. 1, S67-79 Est Avg Gluc 92 mg/dL [facility] Comment: eAG equivalents for HbA1c [...] into estimated average glucose values. ??Diabetes Care 2008:31(8):5887-3464. Blood specimen (specimen) 11/26/2018 12:12 PM EDT 11/26/2018 12:20 PM EDT Narrative Resulting Agency Comment Spec In Lab Juan Miguel Mi MD CHEMISTRY ORDERABLES [facility] [place] [address] * CK (11/26/2018 12:12 PM EDT) CK, Total 152 0 - 160 unit/L [facility] Blood specimen (specimen) 11/26/2018 12:12 PM EDT 11/26/2018 12:20 PM EDT Narrative Resulting Agency Comment Spec In Lab Juan Miguel Mi MD CHEMISTRY ORDERABLES [facility] [place] [address] documented in this encounter Visit Diagnoses Diagnosis Left foot pain- Primary Pain in limb Paresthesias Disturbance of skin sensation Muscular atrophy, unspecified site Type 2 diabetes mellitus with diabetic neuropathy, without long-term current use of insulin documented in this encounter Care Teams Vacuum Drum Drier Operator Relationship Specialty Start Date End Date Jerman Powell MD [address] [place] [address] PCP - General 05/30/11 05/30/21 documented as of this encounter
--- OUTSIDE RECORDS SUMMARY | 2024-03-21 14:00 | XMS_ITS | Encounter Summary ---
Author Organization [facility] Address [facility] [place] [address] Care Team Providers Care Spray Pilot Name Role Phone Renzo Castano APRN Primary Care Provider [phone] Reason for Referral * Consultation (Routine) - Closed Specialty Diagnoses / Procedures Referred By Candelario t Referred To Contact Orthopaedics Diagnoses Left foot pain Hali Leavitt MD [facility] [address] Keri Correa MD [facility] [place] [address] Referral ID Status Reason Start Date Expiration Date V isits Requested Visits Authorized [id number] Closed Consult, Test & Treat 01/16/2023 01/16/2024 1 1 Encounter Details Date Type Department Care Team (Late st Contact Info) Description 01/16/2023 Orders Only [place] [address] Hali Leavitt MD [facility] [place] [address] Left foot pain Social History Tobacco Use Types Packs/Day Years [...] Priority Associated Diagnoses Order Schedule Referral to Orthopaedics Outpatient Referral Routine Left foot pain Ordered: 01/16/2023 documented as of this encounter Visit Diagnoses Diagnosis Left foot pain Pain in limb documented in this encounter Care Teams Spray Pilot Relationship Specialty Start Date End Date Renzo Castano, XIMENA [address] [place] [address] [address] [place] [address] PCP - General Family Medicine 05/31/21 documented as of this encounter
--- OUTSIDE RECORDS SUMMARY | 2024-03-21 14:00 | XMS_ITS | Encounter Summary ---
Author Organization [facility] Address [facility] [place] [address] Care Team Providers Care Head Machinist Name Role Phone Jerman Powell MD Primary Care Provider [phone] Reason for Referral * Physical Therapy (Routine) - Specialty Diagnoses / Procedures Referred By Contac t Referred To Contact Physical Therapy Diagnoses Right knee pain, unspecified chronicity Barbara, LD Jacobsen [facility] [place] [id number] Referral ID Status Reason Start Date Expiration Date V isits Requested Visits Authorized [id number] Evaluate and Treat 01/14/2019 07/13/2019 12 12 Encounter Details Date Type Department Care Team (Late st Contact Info) Description 01/14/2019 Orders [place] [address] [address] [facility] [place] [address] Right knee pain, unspecified chronicity; Primary osteoarthritis of right knee Social History Tobacco Use Types Packs/Day Years [...] as of this encounter Progress Notes * Tiffani Welsh - 01/14/2019 8:40 AM EDT I called and spoke to Janna this morning. Her called last week to get outpatient PT set up. I placed an order for this and faxed it over to [facility] PT in [place] via [employer]. No further questions or concerns. documented in this encounter Plan of Treatment Scheduled Referrals Name Type Priority Associated Diagnoses Orde r Schedule Referral to Physical Therapy Outpatient Referral Routine Right knee pain, unspecified chronicity Ordered: 01/14/2019 documented as of this encounter Visit Diagnoses Diagnosis Right knee pain, unspecified chronicity Primary osteoarthritis of right knee Primary localized osteoarthrosis, lower leg documented in this encounter Care Teams Head Machinist Relationship Specialty Start Date End Date Jerman Powell MD [address] [place] [address] PCP - General 05/30/11 05/30/21 documented as of this encounter
--- OUTSIDE RECORDS SUMMARY | 2024-03-21 14:00 | XMS_ITS | Encounter Summary ---
[place] [address] Care Team Providers Care Fire Boat Engineer Name Role Phone Jerman Powell MD Primary Care Provider [phone] Encounter Details Date Type Department Care Team (Late st Contact Info) Description 06/17/2018 Orders Only [place] [address] Latasha Jeffrey RN May-Thurner syndrome; Intermittent claudication Social History Tobacco Use Types Packs/Day Years [...] as of this encounter Results * Duplex for DVT, Leg, Unilat (08/06/2018 2:59 PM EST) VB Text Report Department: Vascular Surgery Lab Patient: [id number] (ENDER KURTZ) CPT: 89175 ICD10: I87.1 Referring Physician: ANDREA CROUCH ?? [...] Andrea Crouch MD VASCULAR ORDERABLES VASCUBASE * RAFI, legs, multiple levels (08/06/2018 2:59 PM EST) VB Text Report Department: Vascular Surgery Lab Patient: [id number] (ENDER KURTZ) CPT: 40504 ICD10: I73.9;I87.1 Referring Physician: ANDREA CROUCH ?? Indications: ??May Thurner, leg pain, ? perfusion Diabetes mellitus: yes ICD10 Diagnosis Code: I73.9, I87.1 Findings: Right ?Pressure (mm Hg) ?? RAFI ??Waveform ?TBI ?? Brachial Artery ?133 ? Dorsalis Pedis (Ankle) Artery ?92 ?0.69 ??Kingsbury-Biphasic ? Posterior Tibial (Ankle) Artery ??96 ?0.72 ??Kingsbury-Biphasic ? Great Toe ?69 ? 0.52 ?? Left ? Pressure (mm Hg) ?? RAFI ??Waveform ?TBI ?? Brachial Artery ?132 ? Dorsalis Pedis (Ankle) Artery ?92 ?0.69 ??Kingsbury-Biphasic ? Posterior Tibial (Ankle) Artery ??91 ?0.68 ??Kingsbury-Biphasic ? Great Toe ?50 ? 0.38 ?? [...] unspecified documented in this encounter Care Teams Fire Boat Engineer Relationship Specialty Start Date End Date Jerman Powell MD [address] [place] [address] PCP - General 05/30/11 05/30/21 documented as of this encounter
--- OUTSIDE RECORDS SUMMARY | 2024-03-21 14:00 | XMS_ITS | Encounter Summary ---
Author Organization [facility] [place] [address] Care Team Providers Care Vehicle Maintenance Technician Name Role Phone Jerman Powell MD Primary Care Provider [phone] Encounter Details Date Type Department Care Team (Latest Contact Info) Description 04/30/2019 Interpretation Only Cardiology at [address] [place] [address] Oseas Ureña MD [facility] [place] [address] Nausea without vomiting Social History Tobacco Use Types Packs/Day Years [...] as of this encounter Visit Diagnoses Diagnosis Nausea without vomiting documented in this encounter Care Teams Vehicle Maintenance Technician Relationship Specialty Start Date End Date Jerman Powell MD [address] [place] [address] PCP - General 05/30/11 05/30/21 documented as of this encounter
--- OUTSIDE RECORDS SUMMARY | 2024-03-21 14:00 | XMS_ITS | Encounter Summary ---
Author Organization [facility] Address [facility] [place] [address] Care Team Providers Care Diesel Engine Operator Name Role Phone Renzo Castano APRN Primary Care Provider [phone] Encounter Details Date Type Department Care Team (Latest Contact Info) Description 01/10/2023 10:45 AM EDT - 01/10/2023 11:59 PM EDT Hospital Encounter XRay at [address] [place] [address] Hali Leavitt MD [facility] [place] [address] Left foot pain Discharge Disposition: Home Social History Tobacco Use [...] capsule Take 1,500 mg by mouth daily. ferrous gluconate (Ferate) 240 mg (27 mg [...] Diagnosis Comments XR FOOT MIN 3 VIEWS LEFT Routine 01/10/2023 11:02 AM EDT Left foot pain documented in this encounter Results * XR Foot Min 3 views Left [...] who have questions please contact the health post acute care nurse practitioner that requested your imaging first. ? Narrative [...] of the lower leg again noted, present [id number]. IMPRESSION 1. Marked osteopenia/osteoporosis. Suggest DEXA scan [...] patients who have questions please contactthe health post acute care nurse practitioner that requested your imaging first. Hali Leavitt MD IMG DX ORDERABLES documented in this encounter Visit Diagnoses Diagnosis Left foot pain Pain in limb documented in this encounter Care Teams Diesel Engine Operator Relationship Specialty Start Date End Date Renzo Castano, XIMENA [address] [place] [address] PCP - General Family Medicine 05/31/21 documented as of this encounter
--- OUTSIDE RECORDS SUMMARY | 2024-03-21 14:00 | XMS_ITS | Encounter Summary ---
[place] [address] Care Team Providers Care Tube Rebuilder Name Role Phone Jerman Powell MD Primary Care Provider [phone] Encounter Details Date Type Department Care Team (Late st Contact Info) Description 11/26/2018 Orders [place] [address] Sherrie Thomas Social History Tobacco Use Types Packs/Day Years [...] on filedocumented in this encounter Care Teams Tube Rebuilder Relationship Specialty Start Date End Date Jerman Powell MD [address] [place] [address] PCP - General 05/30/11 05/30/21 documented as of this encounter
--- OUTSIDE RECORDS SUMMARY | 2024-03-21 14:00 | XMS_ITS | Encounter Summary ---
Author Organization [facility] Address [facility] [place] [address] Care Team Providers Care Marketing Reporting Analyst Name Role Phone Jerman Powell MD Primary Care Provider [phone] Encounter Details Date Type Department Care Team (Latest Contact Info) Description 07/30/2019 8:57 AM EST - 07/30/2019 11:59 PM [facility] Hospital Encounter XRay at [address] [place] [address] Janina Solorzano MD [facility] [place] [address] Right knee pain, unspecified chronicity Discharge Disposition: Home Social History Tobacco Use [...] 32 grams/day total. 100 g 07/30/2019 05/22/2023 diclofenac (VOLTAREN) 1 % GelIndications:Chronic pain of left knee Apply 2 g topically 2 times daily. 100 g 1 01/14/2019 09/30/2019 aspirin 81 mg Tablet, Delayed Release (E.C.) [...] Name Priority Date/Time Associated Diagnosis Comments XR KNEE AP & LAT RIGHT Routine 07/30/2019 9:07 AM EST Right knee pain, unspecified chronicity documented in this encounter Results * XR Knee 1-2 Views Right (Generic) (07/30/2019 9:07 AM EST) Anatomical Region Laterality Modality Knee Right Digital Radiogra phy Impressions 07/30/2019 11:32 AM EST Osteopenia, mild tricompartmental changes, stable enchondroma. Small joint effusion, no acute fracture lucencies or malalignment appreciated. Thank you for letting us participate in the care of this patient. For questions regarding this report, please contact the number below. ? Narrative 07/30/2019 11:32 AM EST EXAMINATION: XR KNEE 1-2 VIEWS RIGHT (GENERIC) CLINICAL HISTORY: right knee pain 63-year-old female TECHNIQUE: 2 views RIGHT knee COMPARISON: Bilateral knees of 2018. FINDINGS: There is a degree of osteopenia, similar to comparison examination. Chondroid matrix is again identified of the proximal tibia, stable in size and conspicuity, most consistent with an enchondroma. There is a small joint effusion. No fracture lucencies identified. There is a well-corticated superior aspect patellar enthesophyte which appears similar to comparison. Procedure Note Jayy Aiken MD - 07/30/2019 EXAMINATION: XR KNEE 1-2 VIEWS RIGHT (GENERIC) CLINICAL HISTORY: right knee pain 63-year-old female TECHNIQUE: 2 views RIGHT knee COMPARISON: Bilateral knees of 2018. FINDINGS: There is a degree of osteopenia, similar to comparison examination.Chondroid matrix is again identified of the proximal tibia, stable in size and conspicuity, most consistent with an enchondroma. There is a small joint effusion. No fracture lucencies identified. There is a well-corticatedsuperior aspect patellar enthesophyte which appears similar to comparison. IMPRESSION Osteopenia, mild tricompartmental changes, stable enchondroma. Smalljoint effusion, no acute fracture lucencies or malalignment appreciated. Thank you for letting us participate in the care of this patient. Forquestions regarding this report, please contact the number below. Janina Solorzano MD IMG DX ORDERABLES documented in this encounter Visit Diagnoses Diagnosis Right knee pain, unspecified chronicity documented in this encounter Care Teams Marketing Reporting Analyst Relationship Specialty Start Date End Date Jerman Powell MD [address] [place] [address] PCP - General 05/30/11 05/30/21 documented as of this encounter
--- OUTSIDE RECORDS SUMMARY | 2024-03-21 14:00 | XMS_ITS | Encounter Summary ---
Author Organization [facility] Address [facility] [place] [address] Care Team Providers Care Tape Control Skin Or Spar Mill Operator Name Role Phone Jerman Powell MD Primary Care Provider [phone] Encounter Details Date Type Department Care Team (Latest Contact Info) Description 2018 2:31 PM EDT - 2018 11:59 PM EDT Hospital Encounter XRay at [address] [place] [address] Bilateral chronic knee pain; Left knee injury, initial encounter Discharge Disposition: Home Social History Tobacco Use [...] Priority Date/Time Associated Diagnosis Comments XR KNEE STANDING ALIGNMENT AP LAT [place] SKYLINE BILAT Routine 2018 2:54 PM EDT Bilateral chronic knee pain Left knee injury, initial encounter documented in this encounter Results * XR Knee Standing Alignment AP Lat [place] Laureles Bilat (2018 2:54 PM EDT) Anatomical Region Laterality Modality Bilateral Digital Radiogra phy Impressions 2018 4:19 PM EDT Mild osteoarthritis of the knees. Thank you for letting us participate in the care of this patient. For questions regarding this report, please contact the number below. ? Electronically signed by: TEAGAN Torre [facility] ([phone]), at 2018 4:19 PM Narrative 2018 4:19 PM EDT EXAMINATION: XR KNEE STANDING ALIGNMENT AP LAT [place] SKYLINE BILAT CLINICAL HISTORY: bilat knee pain left worse than right twisting injury to left knee about 2 weeks ago. TECHNIQUE: Separate images of the pelvis, knees and feet were acquired in the AP projection with the patient standing. These images were stitched together to form a composite image of the pelvis and legs allowing for evaluation of lower extremity alignment in the weight bearing position. Four additional views were obtained. COMPARISON: April 21, 2010 March 03, 2010 FINDINGS: There is mild narrowing of the medial joint compartments of both knees. Enthesophytes are seen on the superior poles of both patellas. The medial left sided tibial spine is spurred. There is a chondral lesion in the proximal right tibia consistent with an enchondroma or bone infarction and unchanged since 2009. No fracture or dislocation is seen. Standing alignment There is mild lateral deviation of the weightbearing axis of the right leg. There is sheetlike soft tissue calcification in the soft tissues of the left lower extremity. These were present in 2009 and are suggestive of dermatomyositis. Varicosities are present in the medial right thigh. Procedure Note Josh Marc MD - 2018 EXAMINATION: XR KNEE STANDING ALIGNMENT AP LAT [place] SKYLINE BILAT CLINICAL HISTORY: bilat knee pain left worse than right twisting injury to left knee about 2 weeks ago. TECHNIQUE: Separate images of the pelvis, knees and feet were acquired inthe AP projection with the patient standing. These images were stitched togetherto form a composite image of the pelvis and legs allowing for evaluation oflower extremity alignment in the weight bearing position. Four additional viewswere obtained. COMPARISON: April 21, 2010 March 03, 2010 FINDINGS: There is mild narrowing of the medial joint compartments of both knees. Enthesophytes are seen on the superior poles of both patellas. The medialleft sided tibial spine is spurred. There is a chondral lesion in the proximal right tibia consistent withan enchondroma or bone infarction and unchanged since 2009. No fracture or dislocation is seen. Standing alignment There is mild lateral deviation of the weightbearing axis of the rightleg. There is sheetlike soft tissue calcification in the soft tissues of theleft lower extremity. These were present in 2010 and are suggestive of dermatomyositis. Varicosities are present in the medial right thigh. IMPRESSION Mild osteoarthritis of the knees. Thank you for letting us participate in the care of this patient. Forquestions regarding this report, please contact the number below. Janina Solorzano MD IMG DX ORDERABLES documented in this encounter Visit Diagnoses Diagnosis Bilateral chronic knee pain Pain in joint, lower leg Left knee injury, initial encounter documented in this encounter Care Teams Tape Control Skin Or Spar Mill Operator Relationship Specialty Start Date End Date Jerman Powell MD [address] [place] [address] PCP - General 05/30/11 05/30/21 documented as of this encounter
--- OUTSIDE RECORDS SUMMARY | 2024-03-21 14:00 | XMS_ITS | Encounter Summary ---
[place] [address] Care Team Providers Care Thermoscrew Operator Name Role Phone Jerman Powell MD Primary Care Provider [phone] Reason for Visit * Reason Comments Follow-up right knee synvisc i nj * High Dollar Medication (Routine) - Closed Specialty Diagnoses / Procedures Referred By Candelario rodriguez Referred To Contact Orthopaedics Diagnoses Primary osteoarthritis of right knee Procedures Auth Request for Medication TC SYNVISC/SYNVISC-ONE, 1MG, INTRA-ARTICULAR INJECTION SYNVISC-ONE BarbaraAlyssa PA [facility] [place] [address] [facility] [address] [place] [id number] Referral ID Status Reason Start Date Expiration Date V isits Requested Visits Authorized [id number] Closed Consult, Test & Treat 07/30/2019 07/29/2020 1 1 Encounter Details Date Type Department Care Team (Latest Contact Info) Description 08/27/2019 8:15 AM EST Office [place] [address] BarbaraAlyssa PA [facility] [place] [address] Primary osteoarthritis of right knee Social History [...] Sign Reading Time Taken Comments Blood Pressure 110/54 08/27/2019 8:19 AM EST Pulse 99 08/27/2019 8:19 AM EST Temperature - - Respiratory Rate - - Oxygen Saturation - - Inhaled Oxygen Concentration - - Weight 64.4 kg (142 lb) 08/27/2019 8:19 AM EST Height 157.5 cm (5' 2) 08/27/2019 8:19 AM EST Body Mass Index 25.97 08/27/2019 8:19 AM EST documented in this encounter Progress Notes * Barbara, LD Jacobsen - 08/27/2019 8:15 AM EST Patient presents today for procedure only visit, rightknee Synvisc injection for right knee osteoarthritis. She has been seen in our clinic several times for bilateral knee OA, injuries. She has undergone cortisone injection in both knees with some relief. She has also had Synvisc in the left knee with good relief. She does still endorse joint line pain, worse with weightbearing. After discussionof risks and benefits, she elected to proceed with Synvisc injection of the right knee. Please see procedure note below. Procedure I discussed the risks and benefits of injecting the joint with Synvisc One such as, pseudo sepsis, bleeding, infection, and failure to alleviate symptoms. The patient verbalized understanding and chose to proceed with the procedure. The skin about the right knee was sterilely prepped with Chloraprep. After numbing the skin with ethyl chloride spray, the right knee was injected using the anterolateral approach with 48mg/6mL Synvisc One using #22 gauge needles. A bandaid was applied to the injection site. The patient tolerated the procedure well and is without complication. He was advised to keep the bandaid on until the wound has closed. she was also advised to report and signs or symptoms of infection in the joint such as redness, swelling, drainage, or fever immediately. We discussed that if these injections are [...] Visit Diagnoses Diagnosis Primary osteoarthritis of right knee Primary localized osteoarthrosis, lower leg documented in this encounter Administered Medications Inactive Administered Medications - up to 3 most recent administrations Medication Order MAR Action Action Date Dose Rate Site Hylan G-F 20 (SYNVISC-ONE) Syrg 48 mg 48 mg, Intra-articular, ONCE, On 08/30/19 at 2115, 1 dose Given 08/30/2019 8:59 PM EST 48 mg documented in this encounter Care Teams Thermoscrew Operator Relationship Specialty Start Date End Date Jerman Powell MD [address] [place] [address] PCP - General 05/30/11 05/30/21 documented as of this encounter
--- OUTSIDE RECORDS SUMMARY | 2024-03-21 14:00 | XMS_ITS | Encounter Summary ---
[place] [address] Care Team Providers Care Market Intelligence Consultant Name Role Phone Jerman Powell MD Primary Care Provider [phone] Reason for Referral * High Dollar Medication (Routine) - Closed Specialty Diagnoses / Procedures Referred By Candelario t Referred To Contact Orthopaedics Diagnoses Chronic pain of left knee Procedures Auth Request for Medication BarbaraAlyssa PA [facility] [place] [address] [facility] [address] [place] [phone] Referral ID Status Reason Start Date Expiration Date V isits Requested Visits Authorized [id number] Closed Consult, Test & Treat 01/14/2019 01/14/2020 1 1 Reason for Visit * Reason Comments Follow-up bilateral Knee Pain Left>right Encounter Details Date Type Department Care Team (Late st Contact Info) Description 01/14/2019 2:30 PM EDT Office Visit [place] [address] BarbaraAlyssa PA [facility] [place] [address] Chronic pain of left knee (Primary Dx) Social History [...] Sign Reading Time Taken Comments Blood Pressure 138/63 01/14/2019 2:07 PM EDT Pulse 89 01/14/2019 2:07 PM EDT Temperature - - Respiratory Rate - - Oxygen Saturation - - Inhaled Oxygen Concentration - - Weight 69.9 kg (154 lb) 01/14/2019 2:07 PM EDT v erbal Height 157.5 cm (5' 2) 01/14/2019 2:07 PM EDT v erbal Body Mass Index 28.17 01/14/2019 2:07 PM EDT documented in this encounter Progress Notes * Barbara, LD Jacobsen - 01/14/2019 2:30 PM EDT Images from the original note were not included. Department of Orthopaedics Division of Adult Joint Reconstructive Surgery CHIEF COMPLAINT: Chief Complaint Patient presents with ??? Follow-up bilateral Knee Pain Left>right ARTHROPLASTY HISTORY/PREVIOUS KNEE SURGERY: 1. none Janna was referred from No referring provider defined for this encounter. I.D.: Janna Junior is a 63 y.o. year old female being seen today to discuss her left knee. Her history and physical exam were reviewed in detail. She was seen in clinic approximately 2 weeks ago at which time a cortisone injection was performed. She reports no relief, even immediately following theinjection. She has been icing intermittently, but has been working. She states the knee has been symptomatic [...] has not tried physical therapy. She has injections into the joint: cortisone 2 weeks ago with no relief She has NSAIDs/Pain meds: NSAID, Tylenol used but not effective. Hydrocodone with some relief She has brace treatment: sleeve style brace feels too tight Ms. Junior denies fevers/chills/headache/chest pain/shortness of breath/abdominal pain/nausea or vomiting/weight changes She does not endorse a history of DVT/PE or clotting disorder. QUESTIONNAIRE RESPONSES: General Health, Prior Treatments, PreExisting Condition, Health Habits, About You 01/14/2019 PROMIS-10 General Health Poor PROMIS-10 Quality of Life Fair PROMIS-10 Physical Health Fair PROMIS-10 Mental Health Poor PROMIS-10 Social Activity Fair PROMIS-10 Everyday Activities A little PROMIS-10 Pain 7 PROMIS-10 Fatigue Severe PROMIS-10 Social Roles Poor PROMIS-10 Anxious or Depressed Always PROMIS PHYSICAL SCORE (range 16-68) 29.6 PROMIS MENTAL SCORE (range 21-68) 28.4 Treatments Tried Heat and ice therapy, Brace, Walking aids (e.g.cane, walker), Medicines applied onthe skin (topical), Narcotics/opiods (Percocet, codeine, hydrocodone), Injection of steroids or cortisone Prior Surgery - KOOS JR Scores 36.93 TKA Grade 3 Alzheimers or dementia - Cirrohosis or liver disease - HIV/AIDS - Pain in more than one joint in legs - Back or neck pain - Heart attack - Heart failure - Unclog/bypass leg arteries - Stroke, blood clot, TIA - Asthma - Emphysema, chronic bronchities, or [...] Household Income - # People Supported - Czech, , - Race - Health Literacy - Currently working - Current job situation - [employer] Response 01/14/2019 KOOS JR Scores 36.93 ASES VAS-LEFT - ASES ADL-LEFT ARM - ASES LEFT ARM - Spine [employer] Response 01/14/2019 ELSA JR Scores 36.93 ALLERGIES Allergies Allergen Reactions ??? Adhesive Tape [...] not drink alcohol or use drugs. 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 PHYSICAL EXAM: Constitution: Janna sits in [...] test: positive Tenderness: medial joint line and MCL, IT band IMAGING: X-rays of the left knee demonstrate [...] previous response or symptom severity/impact on lifestyle. We discussed that the fact that she had no relief from the lidocaine component of the injection suggests possible muscular or extraarticular etiology for her pain. We discussed conservative treatmentmeasures. She will try to take it easy and ice. She reports good relief from patches in the past. Ioffered her a diclofenac gel prescription as she is unable to take oral NSAIDs. She agrees. This was sent to her pharmacy. She also reports great relief from Synvisc in the past. She would like to try this again. We will submit this for approval. I also recommended a course of PT for gentle ROM andstrengthening. This may also include modalities such as iontophoresis and TENS, which she thinks have been helpful in the past. Prescription was provided. She will return to clinic on an as needed basis if symptoms persist or progress or for Synvisc injection once approval is obtained. Questions were solicited and answered. She agrees with this plan. LD Echavarria documented in this encounter Plan of Treatment Not on file documented as of this encounter Visit Diagnoses Diagnosis Chronic pain of left knee- Primary Pain in joint, lower leg documented in this encounter Care Teams Market Intelligence Consultant Relationship Specialty Start Date End Date Jerman Powell MD [address] [place] [address] PCP - General 05/30/11 05/30/21 documented as of this encounter
--- OUTSIDE RECORDS SUMMARY | 2024-03-21 14:00 | XMS_ITS | Encounter Summary ---
Author Organization [facility] [place] [address] Care Team Providers Care Shipping And Receiving Assistant Name Role Phone Renzo Castano APRN Primary Care Provider [phone] Encounter Details Date Type Department Care Team (Late st Contact Info) Description 07/11/2021 9:30 AM EST Office Visit Dermatology at [address] [phone] Fausto Luna MD [address] [facility] [place] [address] Dermatitis herpetiformis; Oral thrush Social History Tobacco Use Types Packs/Day Years [...] Progress Notes * Fausto Luna MD - 07/11/2021 9:30 AM EST Problems: 1. ??Followup of dermatitis herpetiformis. ?? 2. ??On sulfasalazine, dapsone discontinued ?? 3. ??History of acne and seborrhea of scalp. Janna follows up and is doing well. She does have some slight nausea with sulfasalazine but her DH is controlled and she is not having any itching. She is off of the dapsone. Her acne is under goodcontrol but she developed thrush in the 1 month course of minocycline. Physical examination reveals a pleasant 65 woman who has healing of the papules and excoriations onthe elbows where she had active DH at her last visit. Her acne is controlled and she is been off ofthe minocycline for 1 week. 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 Continue sulfasalazine 500 1 p.o. twice daily . Dispense 60 with 1 refill 2. Return to clinic in 1 month for repeat check. Oral thrush 1. Begin Clotrimazole troches 15 mg, dissolve one in mouth tid for one week, then d/c. Disp #21 with 0 refills. 2. Discontinue minocycline as patient is already done 3. Consider option of spironolactone. CC: Renzo Castano APRN ?? documented in this encounter Plan of Treatment Not on file documented as of this encounter Visit Diagnoses Diagnosis Dermatitis herpetiformis Oral thrush Candidiasis of mouth documented in this encounter Care Teams Shipping And Receiving Assistant Relationship Specialty Start Date End Date Renzo Castano APRN [address] [place] [address] PCP - General Family Medicine 05/31/21 documented as of this encounter
--- OUTSIDE RECORDS SUMMARY | 2024-03-21 14:01 | XMS_ITS | Encounter Summary ---
[place] [address] Care Team Providers Care Supervisor Data Processing Name Role Phone Jerman Powlel MD Primary Care Provider [phone] Reason for Visit * Reason Comments Peripheral Arterial Disease My leg is hu rting now on the left Encounter Details Date Type Department Care Team (Late st Contact Info) Description 12/18/2017 10:30 AM EDT Office Visit [place] [address] Rachel Braun PA [address] [facility] [place] [address] PAD (peripheral artery disease); Intermittent claudication Social History Tobacco Use Types [...] Sign Reading Time Taken Comments Blood Pressure 140/62 12/18/2017 10:24 AM EDT Pulse 93 12/18/2017 10:24 AM EDT Temperature - - Respiratory Rate 18 12/18/2017 10:24 AM EDT Oxygen Saturation - - Inhaled Oxygen Concentration - - Weight 71.2 kg (157 lb) 12/18/2017 10:24 AM EDT Height 157.5 cm (5' 2) 12/18/2017 10:24 AM EDT Body Mass Index 28.72 12/18/2017 10:24 AM EDT documented in this encounter Patient Instructions * Patient Instructions* Rachel Braun PA - 12/18/2017 10:30 AM EDT Ms. Junior has actually had an improvement in her ABIs compared to her last evaluation. I have encouraged a regular walking regiment to continue in addition to ongoing medical management with aspirin and smoking cessation. She was unwilling to consider smoking cessation and still does not want toconsider the addition of a statin to her medical regimen though I have asked her to consider this and discuss it with her PCP. Her left leg pain is unrelated to her arterial disease and may be neuropathic in origin. I have recommended that she continue with the plan for PT for this and see her PCP for follow up. She should remain anticoagulated for her history of DVT & May Thurner Syndrome and should work to manage her leg swelling with compression and elevation. She must be consistent with this in orderto expect this to improve. If she is unable to improve her swelling with consistent use of compression hose then we could consider the addition of a sequential compression pump. I have recommended a d ouble layer of Tubigrip F for now which she should use along with periodic leg elevation (30-45 min, 4-5 times per day) until she is able to apply her compression stockings again. We will plan to repeat her ABIs in 6 months and then see her for follow up at that time. If she hasany new concerns that arise in the interim she will contact us. Please do not hesitate to call with questions/concerns. documented in this encounter Progress Notes * Rachel Braun PA - 12/18/2017 10:30 AM EDT This patient returned to the vascular clinic today for a follow up visit for her PAD. Ms. Junior is currently struggling with sciatica in her left leg which causes pain from her buttock, down the lateral side of her thigh, and into the calf. This occurs after a long work day, withsitting for extended periods of time, and sometimes with standing too long. She is pending a PT eval for this. Because of this pain she has not been able to continue her regular walking regimen as consistently as she had been. Prior to this she had been able to walk on a treadmill for 15-20 minutesor so before she developed calf pain that caused her to stop to rest. She was trying to push through before stopping and thought that her walking distance had increased with the exercise. She continues to deny rest pain or tissue loss. She continues with swelling in her left leg and has again stopped wearing her compression hose because they were too tight and were painful to wear. She is also not spending adequate periods elevating to manage the edema. She remains on Coumadin with therapeutic INRs reportedly. She does continue to smoke and still has no interest at this time in quitting. She continues to take an 81 mg aspirin daily but is not on a statin. 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 She underwent left iliac vein stent placement on 10/01/09 and then in January 2014she had angioplasty of a stenosis identified within the previously placed stent. She denies bleeding concerns. PMHx: Patient Active Problem List Diagnosis Date Noted ??? Leg edema, left 08/07/2017 ??? Anticoagulated on warfarin 08/06/2017 ??? Depressive disorder 08/06/2017 ??? Gastroesophageal reflux disease 08/06/2017 ??? Hyperlipidemia 08/06/2017 ??? Migraine 08/06/2017 ??? Obesity 08/06/2017 ??? Smoker 08/06/2017 ??? PAD (peripheral artery disease) 01/23/2017 ??? Intermittent claudication 01/09/2017 ??? Chronic deep vein thrombosis of left femoral vein 01/09/2017 ??? Tobacco dependence 01/09/2017 ??? Non-intractable cyclical vomiting with nausea 10/31/2016 ??? Bursitis of right shoulder 07/04/2016 ??? Nocturnal leg cramps 07/04/2016 ??? Ulnar neuropathy of left upper extremity 03/21/2016 ??? Spinal stenosis of lumbar region 09/21/2015 ??? Medial epicondylitis of elbow, left 08/17/2015 ??? Carpal tunnel syndrome of right wrist 08/03/2015 ??? Diabetic peripheral neuropathy 08/03/2015 ??? Diabetes 12/01/2013 ??? Chronic pain disorder 05/23/2013 ??? History of pulmonary embolism 05/15/2013 ??? 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 Neurodermatitis 03/14/2011 ??? Chronic venous insufficiency ??? May-Thurner syndrome ??? Protein C deficiency ??? Right knee pain ??? Celiac disease 08/20/2005 SxHx: Past Surgical History: Procedure Laterality Date ??? CHOLECYSTECTOMY, LAPAROSCOPIC 03/18/1992 ??? VASCULAR SURGERY Left 10/01/2009 Balloon angioplasty and stenting of left common iliac vein stenosis ??? 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 Smoking status: Current Every Day Smoker Packs/day: 0.50 ??? Smokeless tobacco: Never Used ??? Alcohol use No Medications: Medications 12/19/17 1419 Medication Sig Taking? aspirin 81 mg Tablet, Delayed Release (E.C.) Take 81 mg by mouth daily. Yes methylPREDNISolone (MEDROL DOSPACK) 4 mg Tablets, Dose Pack Take 4 mg by mouth. Yes Miscellaneous Medical Supply Misc 1 Units. Yes amitriptyline (ELAVIL) 10 mg Tablet Take 10 mg by mouth. Yes dapsone 100 mg Tablet Take 75 mg by mouth. Yes gabapentin (NEURONTIN) 300 mg Capsule Take 300 mg by mouth. Yes warfarin (COUMADIN) 5 mg Tablet Take 5 mg by mouth. Yes ONETOUCH ULTRA TEST Strip TEST TWO TIMES A DAY Yes chlorhexidine (PERIDEX) 0.12 % Mouthwash Yes diphenoxylate-atropine (LOMOTIL) 2.5-0.025 mg Tablet Yes doxycycline (VIBRAMYCIN) 100 mg Capsule Yes ONE TOUCH DELICA 33 gauge Misc TEST TWO TIMES A DAY Yes loperamide (IMODIUM) 2 mg Capsule Yes magnesium oxide (MAG-OX) 400 mg Tablet TAKE ONE TABLET BY MOUTH THREE TIMES A DAY Yes nystatin (MYCOSTATIN) 100,000 unit/mL Suspension Yes predniSONE (DELTASONE) 20 mg Tablet Yes triamcinolone (KENALOG) 0.1 % Lotion Yes [...] - Denies Muscoloskeletal (extremity pain, weakness) - as per HPI Skin (ulcers, rashes) - as per HPI All other ROS negative Physical Exam: Vitals: Most Recent Vitals: 12/18/17 1024 BP: 140/62 Pulse: 93 Resp: 18 PainSc: 0 - No pain Gen: No acute distress. Extremities: 1+ brawny edema left lower leg only mild hyperpigmentation, no tissue loss bilateral legs/feet. Stable gait. Bilateral feet warm and pink with < 3 sec cap refill bilaterally - no tissue loss or evidence ofatheroembolism. Vascular Exam: R L DP 1/2 0/2 PT 0/2 0/2 Psych: AAOx3 Labs/Studies: ABIs: 12/19/2017 Right ?Pressure (mm Hg) ?? RAFI ??Waveform ?? TBI ?? Brachial Artery ?136 ? Dorsalis Pedis (Ankle) Artery ?112 ? 0.79 ??Biphasic ? Posterior Tibial (Ankle) Artery ??111 ? 0.78 ??Biphasic ? Great Toe ?76 ?0.54?? Left ? Pressure (mm Hg) ?? RAFI ??Waveform ?? TBI ?? Brachial Artery ?142 ? Dorsalis Pedis (Ankle) Artery ?102 ? 0.72 ??Biphasic ? Posterior Tibial (Ankle) Artery ??103 ? 0.73 ??Biphasic ? Great Toe ?59 ?0.42?? Interpretation: RIGHT: Mild lower extremity arterial occlusive disease. Significant improvement compared to previous exam. LEFT: Mild lower extremity arterial occlusive disease to the level of the distal calf. Toe/brachialindex lower than ankle/brachial index indicates presence of moderate arterial occlusive disease in the foot. Improvement compared to previous exam. Impression: PAD with intermittent claudication History May Thurner Syndrome and lifelong anticoagulation Chronic left leg edema (hx DVT) Ongoing tobacco abuse Recommendations: Ms. Junior has actually had an improvement in her ABIs compared to her last evaluation. I have encouraged a regular walking regiment to continue in addition to ongoing medical management with aspirin and smoking cessation. She was unwilling to consider smoking cessation and stilldoes not want to consider the addition of a statin to her medical regimen though I have asked her to consider this and discuss it with her PCP. Her left leg pain is unrelated to her arterial disease and may be neuropathic in origin. I have recommended that she continue with the plan for PT for this and see her PCP for follow up. She should remain anticoagulated for her history of DVT & May Thurner Syndrome and should work to manage her leg swelling with compression and elevation. She must be consistent with this in orderto expect this to improve. If she is unable to improve her swelling with consistent use of compression hose then we could consider the addition of a sequential compression pump. I have recommended a d ouble layer of Tubigrip F for now which she should use along with periodic leg elevation (30-45 min, 4-5 times per day) until she is able to apply her compression stockings again. We will plan to repeat her ABIs in 6 months and then see her for follow up at that time. If she hasany new concerns that arise in the interim she will contact us. Please do not hesitate to call with questions/concerns. documented in this encounter Plan of Treatment Not on file documented as of this encounter Visit Diagnoses Diagnosis PAD (peripheral artery disease) Peripheral vascular disease, unspecified Intermittent claudication Peripheral vascular disease, unspecified documented in this encounter Care Teams Supervisor Data Processing Relationship Specialty Start Date End Date Jerman Powell MD [address] [place] [address] PCP - General 05/30/11 05/30/21 documented as of this encounter
--- OUTSIDE RECORDS SUMMARY | 2024-03-21 14:01 | XMS_ITS | Encounter Summary ---
[place] [address] Care Team Providers Care Mortgage Accounting Clerk Name Role Phone Jerman Powell MD Primary Care Provider [phone] Encounter Details Date Type Department Care Team (Latest Contact Info) Description 02/18/2014 3:00 PM EDT Ancillary Appointment [place] [phone] Theo Aguilar, RVT Vein compression - treated with stent; Compression of vein; Protein C deficiency Social History Tobacco Use Types Packs/Day Years Used Date Smoking Tobacco: Every Day Cigarettes Alcohol Use Standard Drinks/Week Comments No 0 [...] Comments DUPLEX FOR DVT, LEG, UNILAT Routine 02/18/2014 2:59 PM EDT Vein compression - treated with stent Compression of vein Protein C deficiency documented in this encounter Results * Duplex for DVT, Leg, Unilat (02/18/2014 2:59 PM EDT) VB Text Report Department: Vascular Surgery Lab Patient: [id number] (ENDER KURTZ) CPT Code: 42635 ICD-9: 451.19 Referring Physician: KRYSTLE REGAN Indication: ??s/p LEFT iliac vein stenting, ? DVT ICD9 Diagnosis Code: 451.19 LEFT: There is non-occlusive thrombus in one of the paired femoral veins from the mid through distal thigh into the popliteal vein which is more echogenic in appearance from study done 11/12/2013. Otherwise, patent common femoral vein and popliteal vein with spontaneous, respirophasic Doppler waveforms that respond normally to augmentation maneuvers. The common femoral vein, saphenofemoral junction, and femoral vein through the proximal thigh are fully compressible. Posterior tibial and peroneal veins are patent by color flow but were not adequately visualized to exclude non-occlusive thrombus due to heavy calcification of the tissue in the calf. The external iliac vein is patent with normal respirophasic Doppler flow signals. No significant change from previous exam. The common iliac vein was not visualized. Interpretation: LEFT: There is non-occlusive deep vein thrombus in one of the paired femoral veins from the mid through distal thigh and extending into the popliteal vein. Cannot exclude non-occlusive DVT in the calf due to sub-optimal visualization. Nicely patent iliac venous system in areas visualized. No significant change from study done 11/12/2013. Electronically Signed by: FRANKY WASHINGTON on 2014-02-21 08:46:24 AM [facility] VB Text Report End of Report [facility] 02/18/2014 2:59 PM EDT Krystle Regan MD VASCULAR ORDERABLES [facility] documented in this encounter Visit Diagnoses Diagnosis Vein compression - treated with stent Compression of vein Compression of vein Protein C deficiency Primary hypercoagulable state documented in this encounter Care Teams Mortgage Accounting Clerk Relationship Specialty Start Date End Date Jerman Powell MD [address] [place] [address] PCP - General 05/30/11 05/30/21 documented as of this encounter
--- OUTSIDE RECORDS SUMMARY | 2024-03-21 14:01 | XMS_ITS | Encounter Summary ---
[place] [address] Care Team Providers Care Manager Analysis Name Role Phone Jerman Powell MD Primary Care Provider [phone] Encounter Details Date Type Department Care Team (Late st Contact Info) Description 02/13/2017 Telephone [place] [phone] Mason Gonzalez, RN Social History Tobacco Use Types Packs/Day [...] Miscellaneous Notes * Telephone Encounter - Mason Gonzalez, RN - 02/13/2017 4:07 PM EDT Grupo called the clinic with concerns of Janna's leg/foot pain stating she can barely walk. Grupo denied knowing that the clinic has tried contacting them three times for f/u visit. He also reports that Janna has not started her pool therapy as recommended at the last clinic visit and continues to smoke. He's requesting a clinic appt for tomorrow. Transferred call to schedulers who will arrange to have her come in the next available with Rachel. documented in this encounter Plan of Treatment Not on file documented as of this encounter Visit Diagnoses Not on filedocumented in this encounter Care Teams Manager Analysis Relationship Specialty Start Date End Date Jerman Powell MD [address] [place] [address] PCP - General 05/30/11 05/30/21 documented as of this encounter
--- OUTSIDE RECORDS SUMMARY | 2024-03-21 14:01 | XMS_ITS | Encounter Summary ---
Author Organization [facility] Address [facility] [place] [address] Care Team Providers Care Employment Counselor Name Role Phone Jerman Powell MD Primary Care Provider [phone] Reason for Visit * Reason Comments Circulatory Problem Encounter Details Date Type Department Care Team (Late st Contact Info) Description 12/09/2014 2:00 PM EDT Follow-[place] [address] Pelon Regan MD [facility] [place] [address] Iliac vein stenosis, left Discharge Disposition: Home Social History Tobacco Use [...] Sign Reading Time Taken Comments Blood Pressure 123/60 12/09/2014 2:40 PM EDT Pulse 97 12/09/2014 2:40 PM EDT Temperature - - Respiratory Rate 18 12/09/2014 2:40 PM EDT Oxygen Saturation - - Inhaled Oxygen Concentration - - Weight 74.4 kg (164 lb) 12/09/2014 2:40 PM EDT Height 160 cm (5' 3) 12/09/2014 2:40 PM EDT Body Mass Index 29.05 12/09/2014 2:40 PM EDT documented in this encounter Progress Notes * Pelon Regan MD - 12/09/2014 2:56 PM EDT Interval history: Returns in follow-up after a left iliac vein stent [employer]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 States her symptoms are improved compared to prior to the procedure. She has been having trouble maintaining a therapeutic INR. No other changes Prior Vascular History: Balloon angioplasty and stenting of left common iliac vein stenosis (18 mm x 16 mm wall stent; APPEALS AND GENERALIST CLERK with 14 mm balloon at 4 atmospheres). 10/01/09 Left iliac vein stent APPEALS AND GENERALIST CLERK, 01/30/2014 Past Medical History Diagnosis Date ??? May-Thurner syndrome Pex: NAD : Studies: LEFT: There is non-occlusive thrombus in one of the paired femoral veins from the prox through distal thigh into the popliteal vein. The non-occlusive thrombus in the femoral vein in the the proximalthigh is a new finding compared to previous exam on 02/18/2014. Otherwise, patent common femoral vein and popliteal [...] patent with normal respirophasic Doppler flow signals. Interpretation: LEFT: There is non-occlusive thrombus in one of the paired femoral veins from the prox through distal thigh into the popliteal vein. The non-occlusive thrombus in the femoral vein in the the proximalthigh is a new finding compared to previous exam on 02/18/2014. Cannot exclude non-occlusive DVT in the calf due to sub-optimal visualization. Patent iliac venous system in areas visualized. Assessment / Plan: Doing well follow iliac vein stent APPEALS AND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 Some improvement in symptoms. Continue coumadin. Followup with duplex in 12 months documented in this encounter Miscellaneous Notes * Addendum Note - Edna Combs RN - 12/09/2014 3:13 PM EDTAddended by: EDNA COMBS on: 12/09/2014 03:13 PM Modules accepted: Orders documented in this encounter Plan of Treatment Not on file documented as of this encounter Visit Diagnoses Diagnosis Iliac vein stenosis, left Compression of vein documented in this encounter Care Teams Employment Counselor Relationship Specialty Start Date End Date Jerman Powell MD [address] [place] [address] PCP - General 05/30/11 05/30/21 documented as of this encounter
--- OUTSIDE RECORDS SUMMARY | 2024-03-21 14:01 | XMS_ITS | Encounter Summary ---
Author Organization [facility] Address [facility] [place] [address] Care Team Providers Care Manager Product Management Name Role Phone Jerman Powell MD Primary Care Provider [phone] Encounter Details Date Type Department Care Team (Latest Contact Info) Description 01/30/2014 6:18 AM EDT - 01/30/2014 11:59 PM EDT Hospital [place] [address] CLINIC, Krystle Medina MD [facility] [address] Vein compression - treated with stent; PVD (peripheral vascular disease) with claudication; Compression of vein; Protein C deficiency Discharge Disposition: Home Social History Tobacco Use [...] Sign Reading Time Taken Comments Blood Pressure 114/58 01/30/2014 10:19 AM EDT Pulse 76 01/30/2014 10:19 AM EDT Temperature 36.3 ??C (97.3 ??F) 01/30/2014 9:00 AM ED T Respiratory Rate 16 01/30/2014 10:19 AM EDT Oxygen Saturation 92% 01/30/2014 10:19 AM EDT Inhaled Oxygen Concentration - - Weight 73.9 kg (163 lb) 01/30/2014 8:00 AM EDT Height - - Body Mass Index 29.81 08/27/2012 3:32 PM EST documented in this encounter Discharge Instructions * Discharge Instructions* Santo Etienne, RN - 01/30/2014 9:58 AM EDT [facility] Interventional Radiology Post Angiography Instructions Procedure: Left iliac venography Puncture Site: Left femoral vein Date: 01/30/14 Physician: Jass 1. At home we advise you to rest quietly in bed or on the couch with your hip straight until the next morning. Until the next morning you may get up only to go to the bathroom. 2. Resume your previous diet. Drink 6-8 ounces of fluid per hour for the next 8 hours. Avoid alcoholic or caffeinated beverages for 24 hours. 3. Avoid strenuous activity for the next 48 hours, particularly in the next 24 hours. Stair climbing should be kept to a minimum. Do not lift objects heavier than 10-15 pounds for the next 48 hours. 4. If you develop bulging under the skin or bleeding at the puncture site, put direct pressure on the puncture site for 15 minutes and call your doctor. If the bleeding persists, reapply pressure, and go to your local Emergency Department. 5. If you notice a sudden change in the feeling (numbness, tingling and/or pain) of your leg on theside of the puncture call your doctor. 6. You may develop a bruise at the puncture site. This should go away within a week to 10 days. If a bulge develops after the first three days, call your doctor or the vascular Department here. Report signs of infection (redness, swelling, discharge, soreness, or fever) to your doctor. 7. Leave the bandage on for 24-48 hours. You may shower the following day after the procedure. You should NOT swim or tub bathe for [address] for 24 hours after the procedure. Do not sign any important documents or smoke unattended for 24 hours. 9. If you have any questions please call the Vascular Department at [phone] until 4:45pm. After 4:45pm call and ask for the Vascular resident paraprofessional aide. 10. If you are a diabetic and take Metformin or Janumet, Do not take it for 2 days after the procedure. You have received medication during your procedure to help lesson anxiety and keep you comfortable and which affects judgement and reaction time. We recommend that you do not drive, operate equipment, sign any important documents, or smoke unattended for 24 hours following your procedure. Be cause of the sedation please be careful on stairs, as you may be unsteady on your feet. You may resume your regular diet as tolerated. IV site -- slight redness, or tenderness is normal, you can use a warm compress. If tenderness and redness increases or foul drainage occurs, please contact your doctor. Special Instructions: Please hold your metformin for 48 hours. You may resume it on Sunday night with dinner. Follow-up: We would like to see you in clinic with imaging studies in one month. This appointment will be mailed to you. If you do not hear from us, please call us at as your appointment is very important to us. documented in this encounter Medications at Time of Discharge Medication Sig Dispensed Refills Start Date End Date Miscellaneous Medical Supply Misc 1 Units by Other route. 06/17/2009 amitriptyline (ELAVIL) 10 mg tablet Take 20 mg by mouth nightly. dapsone (ACZONE) 25 mg tablet Take 2 tablets by mouth 2 times daily. 120 tablet 5 05/30/2011 gabapentin (NEURONTIN) 300 mg capsule Take 1,500 mg by mouth daily. MAGNESIUM ORAL Take 1,000 mg by mouth 3 times daily. 07/30/2019 omeprazole (PRILOSEC) 20 mg capsule Take 20 mg by mouth nightly. 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 Left femoral venous access 2. Non-selective catheterization of the IVC 3. Left iliac venography 4. IVUS 5. Balloon angioplasty of previous common iliac vein stent (10x40 mm [place]) to 12 nydia 6. Completion IVUS Surgeons: Sonia Regan Contrast: Visipaque - 12 cc FT: 4.6 minutes Antibiotics: None Heparin: None Protamine: None Sedation: Versed- 3 mg, Fentanyl- 175 mcg Indications: Ms. 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 Her duplex performed on the day of her clinic visit demonstrates progression of DVT despite therapeutic anticoagulation. In light of the DVT progression and her subjective increasein symptoms a venogram and IVUS is warranted to fully evaluate the iliac stent. Plan for left femoral access as the Duplex shows the clot appears to be blow the level of the CFV. Findings: - Dr. Regan was present for the entirety of this procedure. - Sheath access in left groin (6 Prydeinig) - Venogram revealed patent left common iliac vein stent with no obvious stenosis but there was slight difficulty in passing the wire and catheter through the distal stent. - Intravascular ultrasound did reveal questionable mild stenosis in the proximal stent with relatively low flow in a short segment of the stent by Doppler flow analysis. - Intervention: Angioplasty of previous common iliac vein stent (10x40 mm [place]) to 12 nydia - Completion IVUS revealed improvement in flow through the area of the stent with low flow; still with an area of mildly reduced flow but this was thought be related to respirophacity as it seemed tovary without movement of the IVUS probe Technical Procedure: The patient was correctly identified in the pre-procedure holding area. After a discussion of the risks and benefits, operative consent was obtained. The patient was brought to the angio suite and placed supine upon the angio table. The patient was prepped and draped in the usual sterile fashion. Atime-out was performed by the attending surgeon. Retrograde percutaneous access was obtained in theleft common femoral vein via micropuncture technique under flouroscopic guidance after infiltrationwith local anesthetic. We then attempted to upsize this over a 5F sheath over a J-wire, but the J-wire would not pass through the distal stent. We then exchanged the J-wire through the microsheath for a stiff Amplatz wire. The Amplatz wire was passed through the stent into the IVC. A skin nikolay was made with a #11 blade and the sheath was then exchanged for a short 5 Prydeinig sheath. The sheath was then upsized again to a short six Prydeinig sheath over the wire. The wire was then exchanged through a5 Prydeinig Berenstein catheter for an 0.18 V18 wire. The catheter was removed and an IVUS probe was advanced to the proximal stent and then pulled back across the stent and the entire stented area was visualized with findings as above. The IVUS probe was removed and a 10x40 mm [place] balloon was advanced to the distal stent and dilated to 12 nydia. We then removed the balloon and again advanced the IVUS probe and re-imaged the entire stent. Satisfied, the IVUS probe and wire were removed. The sheath was removed and manual pressure was held over the puncture site for 10 minutes. Hemostasis was satisfactory. The puncture site was dressed with a dry gauze and tegaderm. Dr. Regan. the attending surgeon was scrubbed and present for the entire procedure. Due to the painful nature of the procedure, split doses of fentanyl and Versed were administered by the IR nurse during continuous monitoring of pulse, blood pressure and oxygen saturation. Plan: - Flat for 1 hour, then discharge home - Continue coumadin, INR 1.7 today; no bridge - Hold metformin for 48 hours - Follow-up in one month with repeat DVT study Pedrito Scott M.D. PGY-2 Pager [phone] IAttending addendum: I was present for and participated in this entire case. I agree with the documentation above * Berry Gillette RN - 01/27/2014 4:10 PM EDT [facility] NURSING DATABASE Name: JANNA KURTZ Date of : 1955 AGE 58 y.o. Address: [address] [address] (home) Mobile: Referring Provider: Krystle Regan Reason for Visit: Left Reason for exam and clinical history: L iliac venogram with IVUS Exam/Procedure requested: vengram Where will study be performed? [facility] Is the patient on anticoagulant / anitplatelet therapy ? Aspirin Coumadin (Assessment/plan from provider's note, bottom of page) Copy/paste from provider's note Allergies Allergen Reactions ??? Adhesive Tape Rash ??? Wheat Bran Rash ??? Wheat Flour Rash ??? Wheat Germ Oil Rash ??? Wheat Starch Rash Pertinent PMH: Patient Active Problem List Diagnosis Code ??? Reflux 530.81 ??? Celiac disease 579.0 ??? Vein compression - treated with stent 459.2 ??? Protein C deficiency 289.81 ??? Right knee pain 719.46 ??? 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 Neurodermatitis 698.3 Past Medical History Diagnosis Date ??? May-Thurner syndrome Pertinent PSH: Past Surgical History Procedure Date ??? Created by interface LAPAROSCOPIC CHOLECYSTECTOMY Procedure Date: 03/18/1992 Date/Procedure Comments: 01/30/14 LLE venogram with angioplasty Fentanyl 175mcg IV, Versed 3mg IV Laboratory Results: No results found for this basename: inr No results found for this basename: PT, PTT No results found for this basename: BUN No results found for this basename: creatinine No results found for this basename: k No results found for this basename: PLATELET Medications: Prior to Admission medications Medication Sig Start Date End Date Taking? Authorizing Provider amitriptyline (ELAVIL) 10 mg tablet Take 10 mg by mouth nightly. Adelfo Ren MD MAGNESIUM ORAL Take by mouth. Adelfo Ren MD Diclofenac Epolamine 1.3 % PtMd Apply 180 mg topically 2 times daily. 06/22/11 Jie Garay APRN dapsone (ACZONE) 25 mg tablet Take 2 tablets by mouth 2 times daily. 05/30/11 Fausto Luna MD warfarin (COUMADIN) 10 mg tablet Take 5 mg by mouth daily. Adelfo Ren MD omeprazole (PRILOSEC) 20 mg capsule Take 20 mg by mouth nightly. Adelfo Ren MD gabapentin (NEURONTIN) 300 mg capsule Take 300 mg by mouth daily. Adelfo Ren MD hydroCODone-acetaminophen (NORCO) 7.5-325 mg per tablet 1 Tablet(s), PO, Q4-6H PRN 09/15/10 For outpatient procedures: This patient has been informed that they require a concrete pile driver operator to drive them home after this procedure. In the absence of a concrete pile driver operator, IR will not be able to perform this procedureand will need to reschedule. Pt verbalized understanding of these instructions during the pre-procedure education via phone. documented in this encounter H&P Notes * Pedrito Scott MD - 01/30/2014 7:28 AM EDT Vascular Surgery Pre-Angiography H&P Chief Complaint: Progression of left lower extremity DVT Planned Procedure: Left ileo-femoral venography, IVUS HPI: Janna Kurtz is a 57 y.o.female current smoker who presents for follow-up of her left leg DVT, s/p iliac vein stent placement. She reports a subjective increase in left lower extremity swellingand burning pain when standing for long periods. She does continue to wear knee high compression stockings. She has remained on the coumadin. She was seen in clinic and was noted to have progression of her DVT despite therapeutic anticoagulation. She unfortunately continues to smoke 1/2 ppd but is trying to cut down and quit. Past Medical History Diagnosis Date ??? May-Thurner syndrome PSHx: Past Surgical History Procedure Date ??? Created by interface LAPAROSCOPIC CHOLECYSTECTOMY Procedure Date: 03/18/1992 Left iliac vein stent placement Medications: Current Outpatient Prescriptions on File Prior to Encounter Medication Sig Dispense Refill ??? amitriptyline (ELAVIL) 10 mg tablet Take 10 mg by mouth nightly. ??? MAGNESIUM ORAL Take by mouth. ??? Diclofenac Epolamine 1.3 % PtMd Apply 180 mg topically 2 times daily. 20 patch 1 ??? dapsone (ACZONE) 25 mg tablet Take 2 tablets by mouth 2 times daily. 120 tablet 5 ??? warfarin (COUMADIN) 10 mg tablet Take 5 mg by mouth daily. ??? omeprazole (PRILOSEC) 20 mg capsule Take 20 mg by mouth nightly. ??? gabapentin (NEURONTIN) 300 mg capsule Take 300 mg by mouth daily. ??? hydroCODone-acetaminophen (NORCO) 7.5-325 mg per tablet 1 Tablet(s), PO, Q4- 6H PRN Allergies: Adhesive tape; Wheat bran; Wheat flour; Wheat germ oil; and Wheat starch Social Hx: History Social History ??? Marital Status: Spouse Name: N/A Number of Children: N/A ??? Years of Education: N/A Social History Main Topics ??? Smoking status: Current Every Day Smoker -- 0.5 packs/day ??? Smokeless tobacco: Not on file ??? Alcohol Use: No ??? Drug Use: No ??? Sexually Active: Not on file Other Topics Concern ??? Not on file Social History Narrative ??? No narrative on file Family hx: No family history on file. ROS: As per HPI. Remainder of ROS is otherwise negative. Physical Exam: Gen: NAD Neuro: A&O x 3 Abd: soft, NTND Ext: Mild edema bilateraaly Vasc: 2+ DP bilaterally, unable to palpate a PT on either side Vascular: Right Left Carotid 2/2 2/2 Radial 2/2 2/2 Femoral 2/2 2/2 PT - - DP 2/2 2/2 Laboratory: Creatinine: 0.65 EGFR: >60 INR Pending Studies: DVT Duplex Interpretation: LEFT: There is non-occlusive deep vein thrombus in one of the paired femoral veins from the mid through distal thigh into the popliteal vein. Cannot exclude non-occlusive DVT in the calf due to suboptimal visualization. Progression in one of the femoral veins in the thigh with no identifiable change in the popliteal vein compared to the previous exam done on 08/27/2012. Assessment/Plan: Ms. 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 Her duplex performed on the day of her clinic visit demonstrates progression of DVT despite therapeutic anticoagulation. In light of the DVT progression and her subjective increasein symptoms a venogram and IVUS is warranted to fully evaluate the iliac stent. Plan for left femoral access as the Duplex shows the clot appears to be blow the level of the CFV. ASA: 2 Mallampati: 2 Cr: 0.65 Pedrito Scott M.D. PGY-2 Pager [phone] documented in this encounter Miscellaneous Notes * Miscellaneous - Provider, Scanning - 02/06/2014 1:25 PM EDT documented in this encounter Plan of Treatment Scheduled Orders Name Type Priority Associated Diagnoses Orde r Schedule Creatinine Lab STAT Vein compression - treated with stent Expected: 01/30/2014, Expires: 01/27/2015 Creatinine Lab STAT Vein compression - treated with stent 1 Occurrences starting 01/30/2014 documented as of this encounter Procedures Procedure Name Priority Date/Time Associated Diagnosis Comments POCT GLUCOSE Routine 01/30/2014 9:50 AM EDT VS ARTERIOGRAM LOWER EXTREMITY VASCULAR SURGERY Routine 01/30/2014 9:35 AM EDT PVD (peripheral vascular disease) with claudication POCT GLUCOSE Routine 01/30/2014 8:06 AM EDT PROTHROMBIN TIME STAT 01/30/2014 7:30 AM EDT CREATININE STAT 01/30/2014 6:12 AM EDT PVD (peripheral vascular disease) with claudication PLATELET COUNT STAT 01/30/2014 6:12 AM EDT Vein compression - treated with stent documented in this encounter Results * Duplex for DVT, Leg, Unilat (02/18/2014 2:59 PM EDT) VB Text Report Department: Vascular Surgery Lab Patient: [id number] (JANNA KURTZ) CPT Code: 37622 ICD-9: 451.19 Referring Physician: KRYSTLE REGAN Indication: [...] PM EDT Krystle Regan MD VASCULAR ORDERABLES Performing Organization Address City/[facility]/ZIP Co de Phone Number [facility]AS[facility] * POCT Glucose (01/30/2014 9:50 AM EDT) POC Glucose 124 60 - 199 mg/dL MAR REAVES Comment: Supplemental ranges: <110 mg/dL before meals <200 mg/dL all other times of the day Blood specimen (specimen) 01/30/2014 9:50 AM EDT 01/30/2014 9:50 AM EDT Krystle Regan MD POINT OF CARE TEST O RDERABLES Performing Organization Address City/[facility] Co de Phone Number MAR [employer] * VS Angiogram/intervention (vascular) (01/30/2014 9:35 AM EDT) Anatomical Region Laterality Modality X-Ray Angiograph y 01/30/2014 9:35 AM EDT Narrative 02/13/2014 10:42 AM EDT Vascular Surgery Angio Procedure Note: ?? 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 Procedure: ?? 1. Left femoral venous access ?? 2. Non-selective catheterization of the IVC ?? 3. Left iliac venography ?? 4. IVUS ?? 5. Balloon angioplasty of previous common iliac vein stent (10x40 mm [place]) to 12 nydia ?? 6. Completion IVUS ?? Surgeons: Sonia Regan ?? Contrast: Visipaque - 12 cc ?? FT: 4.6 minutes ?? Antibiotics: None ?? Heparin: None ?? Protamine: None ?? Sedation: Versed- 3 mg, Fentanyl- 175 mcg ?? Indications: ?? Ms. 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 Her duplex performed on the day of her clinic visit demonstrates progression of DVT despite therapeutic anticoagulation. In light of the DVT progression and her subjective increase in symptoms a venogram and IVUS is warranted to fully evaluate the iliac stent. Plan for left femoral access as the Duplex shows the clot appears to be blow the level of the CFV. ?? Findings: ?? - Dr. Regan was present for the entirety of this procedure. ?? - Sheath access in left groin (6 Prydeinig) ?? - Venogram revealed patent left common iliac vein stent with no obvious stenosis but there was slight difficulty in passing the wire and catheter through the distal stent. ?? - Intravascular ultrasound did reveal questionable mild stenosis in the proximal stent with relatively low flow in a short segment of the stent by Doppler flow analysis. ?? - Intervention: Angioplasty of previous common iliac vein stent (10x40 mm [place]) to 12 nydia ?? - Completion IVUS revealed improvement in flow through the area of the stent with low flow; still with an area of mildly reduced flow but this was thought be related to respirophacity as it seemed to vary without movement of the IVUS probe ?? Technical Procedure: ?? The patient was correctly identified in the pre-procedure holding area. After a discussion of the risks and benefits, operative consent was obtained. The patient was brought to the angio suite and placed supine upon the angio table. The patient was prepped and draped in the usual sterile fashion. A time-out was performed by the attending surgeon. Retrograde percutaneous access was obtained in the left common femoral vein via micropuncture technique under flouroscopic guidance after infiltration with local anesthetic. We then attempted to upsize this over a 5F sheath over a J-wire, but the J-wire would not pass through the distal stent. We then exchanged the J-wire through the microsheath for a stiff Amplatz wire. The Amplatz wire was passed through the stent into the IVC. A skin nikolay was made with a #11 blade and the sheath was then exchanged for a short 5 Prydeinig sheath. The sheath was then upsized again to a short six Prydeinig sheath over the wire. The wire was then exchanged through a 5 Prydeinig Berenstein catheter for an 0.18 V18 wire. The catheter was removed and an IVUS probe was advanced to the proximal stent and then pulled back across the stent and the entire stented area was visualized with findings as above. The IVUS probe was removed and a 10x40 mm [place] balloon was advanced to the distal stent and dilated to 12 nydia. We then removed the balloon and again advanced the IVUS probe and re-imaged the entire stent. Satisfied, the IVUS probe and wire were removed. The sheath was removed and manual pressure was held over the puncture site for 10 minutes. Hemostasis was satisfactory. The puncture site was dressed with a dry gauze and tegaderm. ?? Dr. Regan. the attending surgeon was scrubbed and present for the entire procedure. Due to the painful nature of the procedure, split doses of fentanyl and Versed were administered by the IR nurse during continuous monitoring of pulse, blood pressure and oxygen saturation. ?? Plan: ?? - Flat for 1 hour, then discharge home ?? - Continue coumadin, INR 1.7 today; no bridge ?? - Hold metformin for 48 hours ?? - Follow-up in one month with repeat DVT study ?? Pedrito Scott M.D. ?? PGY-2 ?? Pager [phone] ?? IAttending addendum: I was present for and participated in this entire case. I agree with the documentation above ? 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 Left femoral venous access 2. Non-selective catheterization of the IVC 3. Left iliac venography 4. IVUS 5. Balloon angioplasty of previous common iliac vein stent (10x40 mmMustang) to 12 nydia 6. Completion IVUS Surgeons: Sonia Regan Contrast: Visipaque - 12 cc FT: 4.6 minutes Antibiotics: None Heparin: None Protamine: None Sedation: Versed- 3 mg, Fentanyl- 175 mcg Indications: Ms. Kurtz is a 57 F who presents in follow-up for May-Thurner syndromethat was treated with iliac stent placement. Her duplex performed on the day ofher clinic visit demonstrates progression of DVT despite therapeutic anticoagulation. In light of the DVT progression and her subjectiveincrease in symptoms a venogram and IVUS is warranted to fully evaluate the iliacstent. Plan for left femoral access as the Duplex shows the clot appears to beblow the level of the CFV. Findings: - Dr. Regan was present for the entirety of this procedure. - Sheath access in left groin (6 Prydeinig) - Venogram revealed patent left common iliac vein stent with no obvious stenosis but there was slight difficulty in passing the wire and catheter through the distal stent. - Intravascular ultrasound did reveal questionable mild stenosis in the proximal stent with relatively low flow in a short segment of the stent by Doppler flow analysis. - Intervention: Angioplasty of previous common iliac vein stent (10x40 mm [place]) to 12 nydia - Completion IVUS revealed improvement in flow through the area of thestent with low flow; still with an area of mildly reduced flow but this wasthought be related to respirophacity as it seemed to vary without movement of theIVUS probe Technical Procedure: The patient was correctly identified in the pre-procedure holding area.After a discussion of the risks and benefits, operative consent was obtained. The patient was brought to the angio suite and placed supine upon the angiotable. The patient was prepped and draped in the usual sterile fashion. Atime-out was performed by the attending surgeon. Retrograde percutaneous access wasobtained in the left common femoral vein via micropuncture technique underflouroscopic guidance after infiltration with local anesthetic. We then attempted toupsize this over a 5F sheath over a J-wire, but the J-wire would not pass throughthe distal stent. We then exchanged the J-wire through the microsheath for astiff Amplatz wire. The Amplatz wire was passed through the stent into the IVC.A skin nikolay was made with a #11 blade and the sheath was then exchanged fora short 5 Prydeinig sheath. The sheath was then upsized again to a short sixFrench sheath over the wire. The wire was then exchanged through a 5 FrenchBerenstein catheter for an 0.18 V18 wire. The catheter was removed and an IVUS probewas advanced to the proximal stent and then pulled back across the stent andthe entire stented area was visualized with findings as above. The IVUS probewas removed and a 10x40 mm [place] balloon was advanced to the distal stentand dilated to 12 nydia. We then removed the balloon and again advanced the IVUS probe and re-imaged the entire stent. Satisfied, the IVUS probe and wirewere removed. The sheath was removed and manual pressure was held over thepuncture site for 10 minutes. Hemostasis was satisfactory. The puncture site wasdressed with a dry gauze and tegaderm. Dr. Regan. the attending surgeon was scrubbed and present for the entire procedure. Due to the painful nature of the procedure, split doses offentanyl and Versed were administered by the IR nurse during continuous monitoringof pulse, blood pressure and oxygen saturation. Plan: - Flat for 1 hour, then discharge home - Continue coumadin, INR 1.7 today; no bridge - Hold metformin for 48 hours - Follow-up in one month with repeat DVT study Pedrito Scott M.D. PGY-2 Pager [phone] IAttending addendum: I was present for and participated in this entirecase. I agree with the documentation above Film and interpretation reviewed by the attending Krystle Regan MD IM IR ORDERABLES * POCT Glucose (01/30/2014 8:06 AM EDT) POC Glucose 143 60 - 199 mg/dL [facility] Comment: Supplemental ranges: <110 mg/dL before meals <200 mg/dL all other times of the day Blood specimen (specimen) 01/30/2014 8:06 AM EDT 01/30/2014 8:06 AM EDT Krystle Regan MD POINT OF CARE TEST O RDERABLES MAR SÁNCHEZSettle * (ABNORMAL) Prothrombin Time (01/30/2014 7:30 AM EDT) PT 20.1(H) 12.0 - 15.0 sec [facility] Comment: [facility] Transfusion Committee Guidelines: INR less than 2.0, PTT less than OR equal to 43.5 seconds, or Fibrinogen greater than or equal to 100 mg/dl indicate adequate procoagulant activity for hemostasis in patients without underlying bleeding disorders. INR 1.7(H) 0.9 - 1.1 [facility] Blood specimen (specimen) 01/30/2014 7:30 AM EDT 01/30/2014 8:04 AM EDT Narrative Resulting Agency Comment Spec In Lab Krystle Regan MD HEMATOLOGY ORDERABLE S Performing Organization Address [facility] de Phone Number MAR SÁNCHEZSettle * (ABNORMAL) Creatinine (01/30/2014 6:12 AM EDT) Creatinine 0.65(L) 0.70 - 1.20 mg/dL [facility] Comment: Please note that the pediatric reference intervals supplied above were not validated at [facility] Results from pediatric patients should be interpreted in conjunction to the patient's age, height and muscle mass. Estimated GFR >60 >=60 [facility] Comment: This estimated GFR (eGFR) value was calculated using the MDRD equation which has been validated on patients between the ages of 18 and 70. The MDRD should not be used to assess kidney function in patients < 18 years of age or in patients with extremes of body mass, or in patients with acute kidney failure. This value should be multiplied by 1.2 for patients. For further information please copy and paste the following links into your internet browser. http://Yieldr.Handprint/DHnkdep http://Yieldr.Handprint/[facility] Blood specimen (specimen) 01/30/2014 6:12 AM EDT 01/30/2014 6:15 AM EDT Narrative Resulting Agency Comment Spec In Lab Krystle Regan MD CHEMISTRY ORDERABLES [facility] * Platelet count (01/30/2014 6:12 AM EDT) Platelets 163 145 - 370 x10(3)/mcL [facility] Blood specimen (specimen) 01/30/2014 6:12 AM EDT 01/30/2014 6:15 AM EDT Narrative Resulting Agency Comment Spec In Lab Krystle Regan MD HEMATOLOGY ORDERABLE S M[facility] REAVES documented in this encounter Visit Diagnoses Diagnosis Vein compression - treated with stent Compression of vein PVD (peripheral vascular disease) with claudication Peripheral vascular disease, unspecified Compression of vein Protein C deficiency Primary hypercoagulable state documented in this encounter Administered Medications Inactive Administered Medications - up to 3 most recent administrations Medication Order MAR Action Action Date Dose Rate Site fentaNYL 50mcg/mL injection 25-50 mcg, Intravenous, EVERY 5 MIN PRN, Starting on Sun01/30/14 at 0749, Until Sun01/30/14 at 0925, Pain, Angio/IR (Intra-Procedure), Routine Given 01/30/2014 9:22 AM EDT 175 mcg iodixanol (VISIPAQUE) 320 mg iodine/mL injection 150 mL 150 mL, Intravenous, ONCE PRN, 1 dose, Starting on Sun01/30/14 at 0943, Until Sun01/30/14 at 0944, Per Protocol, Angio/IR (Intra-Procedure), Routine Given 01/30/2014 9:44 AM EDT 12 mLs midazolam (PF) (VERSED) 1 mg/mL injection 0.5-1 mg 0.5-1 mg, Intravenous, EVERY 5 MIN PRN, Starting on Sun01/30/14 at 0749, Until Sun01/30/14 at 0925, Sleep, Angio/IR (Intra-Procedure), Routine Given 01/30/2014 9:22 AM EDT 3 mg documented in this encounter Care Teams Manager Product Management Relationship Specialty Start Date End Date Jerman Powell MD [address] [place] [address] [address] PCP - General 05/30/11 05/30/21 documented as of this encounter
--- OUTSIDE RECORDS SUMMARY | 2024-03-21 14:01 | XMS_ITS | Encounter Summary ---
[place] [address] Care Team Providers Care Washer Carcass Name Role Phone Jerman Powell MD Primary Care Provider [phone] Reason for Visit * Reason Comments Peripheral Arterial Disease My legs stil l hurt Encounter Details Date Type Department Care Team (Late st Contact Info) Description 02/14/2017 11:45 AM EDT Office [place] [address] Rachel Braun PA [address] [facility] [place] [address] PAD (peripheral artery disease); Intermittent claudication; Tobacco dependence; Hypomagnesemia Social History Tobacco Use Types Packs/Day Years [...] Sign Reading Time Taken Comments Blood Pressure 136/63 02/14/2017 11:54 AM EDT Pulse 104 02/14/2017 11:54 AM EDT Temperature - - Respiratory Rate - - Oxygen Saturation - - Inhaled Oxygen Concentration - - Weight 71.2 kg (157 lb) 02/14/2017 11:54 AM EDT Height 157.5 cm (5' 2) 02/14/2017 11:54 AM EDT Body Mass Index 28.72 02/14/2017 11:54 AM EDT documented in this encounter Patient Instructions * Patient Instructions* Rachel Braun PA - 02/14/2017 11:45 AM EDT Ms. Junior has had no significant change in her RAFI assessment compared to her study earlier this to account for her new left foot symptoms and I feel these are likely more related to her edema and to her peripheral arterial disease. However, her complaints on the right with the great toe seemed consistent with an atheroembolic event and are not infectious as the erythema that was presentdid completely resolve with elevation of her leg today on exam. I have urged her to protect this area from injury and reminded her that it will take time to heal. Her right great toe pressure was 62 on examination but the base of her toe was not affected and appeared normal on exam. Only the tip ofthe toe was affected which may not be reflected in the pressure obtained today. I reiterated that I am advocating for medical management at this point so long as she does not develop rest pain or tissue loss. I am happy that she has started aspirin daily but I will continue to advocate for the initiation of statin therapy and complete smoking cessation. I have also again encouraged a walking program. Again, I would not recommend an endovascular attempt at treatment until she is better optimized medially unless she develops rest pain or tissue loss. Her sporadic leg pain/cramps at night remain inconsistent with arterial rest pain and should continue to be evaluated by her PCP. She requested her magnesium level be repeated today as this has not been done by her primary care and she is having difficulty communicating with her primary care physician. She will go to the lab for this today. If this is abnormal I will refer her back to her primary care for management. She will return in 3 months for a follow up evaluation with ABIs. If her condition has not improvedthen we can reconsider intervention but, again, I would stress the importance of smoking cessation prior to any intervention if possible. If she develops rest pain or tissue loss prior to follow up we must be notified. Otherwise, she may continue light compression and periodic elevation to manage her left leg swelling which is likely the result of venous insufficiency. I would not add a tighter compression stockingright now because it seems to provoke more pain. We will need to schedule follow up for her venous stent at her next visit (likely in 12/2017). Please do not hesitate to call with questions/concerns. documented in this encounter Progress Notes * Rachel Braun PA - 02/14/2017 11:45 AM EDT This patient returned to the vascular clinic today for a follow up visit for her leg pain. Ms. Junior called for a follow-up visit sooner than the anticipated follow-up because she was concerned that there had been a change in her left foot. Earlier this week she developed a spongy feeling on the bottom of her left foot that made it feel as though she was walking on a memory foam pad. She noticed no discoloration or swelling of this area. She has continued to have swelling in her left leg but is using a compression stocking. About a week ago she did have slightly increased swelling but had been spending more time on her legs and now she has been off of work for the past 2 days and therefore it has improved. In addition, she complains of pain in her right great toe along with redness at the tip of it whichshe believes is related to a fungal nail infection or an ingrown nail. She has discussed this with her primary care and has considered antifungal treatment and also removing a portion of the nail buthas not started treatment for either of these. She states the right great toe became suddenly painful and discolored some time ago and then gradually improved over several months. Then, about 3-4 months ago, she developed a sudden onset of increased pain and discoloration again. Now, the red discoloration has remained until now with tenderness to touch. The toe is also very sensitive when the bedsheets touch this at night while she is elevating her legs on pillows in bed. She has not developedany tissue loss. She continues to experience lower leg claudication and is only able to walk about 50 yards (at most) before she must stop to rest (left worse than right calf). This improves does improve with rest and she denies symptoms consistent with arterial rest pain. At her last visit we discussed pool therapy to help her with walking but she has not started this because of her work schedule. 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 She has not been walking distances regularly otherwise. She continues to experience intermittent cramps sporadically in both legs at night but this occurs equally in both legs in both the calves and the thighs and is not affected by dependency. She has not had her Mag level rechecked since her PCP initiated magnesium replacement. She does continue to smoke and still has no interest at this time in quitting smoking. Since her last visit she has started an 81 mg aspirin daily. She is still not on a statin. 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 She underwent left iliac vein stent placement on 10/01/09 and then in January 2014she had angioplasty of a stenosis identified within the previously placed stent. She denies bleeding concerns. PMHx: Patient Active Problem List Diagnosis Date Noted ??? PAD (peripheral artery disease) 01/23/2017 ??? Intermittent claudication 01/09/2017 ??? Chronic deep vein thrombosis of left femoral vein 01/09/2017 ??? Tobacco dependence 01/09/2017 ??? Spinal stenosis of lumbar region 09/21/2015 ??? 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 Neurodermatitis 03/14/2011 ??? Chronic venous insufficiency ??? May-Thurner syndrome ??? Protein C deficiency ??? Right knee pain ??? Celiac disease 08/20/2005 SxHx: Past Surgical History: Procedure Laterality Date ??? CHOLECYSTECTOMY, LAPAROSCOPIC 03/18/1992 ??? VASCULAR SURGERY Left 10/01/2009 Balloon angioplasty and stenting of left common iliac vein stenosis ??? VASCULAR SURGERY Left 01/30/2014 Left iliac vein stent INSOLE PRESSER Social Hx: Social History Substance Use Topics ??? Smoking status: Current Every Day Smoker Packs/day: 0.50 ??? Smokeless tobacco: Not on file ??? Alcohol use No Medications: Medications 02/14/17 1156 Medication Sig Taking? HYDROcodone-acetaminophen (NORCO) 10-325 mg Tablet Take 1 [...] 2 tablets by mouth 2 times daily. warfarin (COUMADIN) 10 mg tablet Take 5 mg by mouth daily. omeprazole (PRILOSEC) 20 mg capsule Take [...] All other ROS negative Physical Exam: Vitals: Vitals: 02/14/17 1154 BP: 136/63 Pulse: 104 Gen: No acute distress. Extremities: 1+ brawny edema left lower leg only mild hyperpigmentation, no tissue loss bilateral legs/feet. Stable gait. Right great toe ruborous from DIP joint to tip of toe - pales completely with elevation. Sensitive to the touch - no tissue loss Vascular Exam: R L DP 1/2 0/2 PT 0/2 0/2 Psych: AAOx3 Labs/Studies: ABIs: 02/14/17 Right ?Pressure (mm Hg) ?? RAFI ??Waveform ?? TBI ?? Brachial Artery ?142 ? Dorsalis Pedis (Ankle) Artery ?90 ?0.63 ??Biphasic ? Posterior Tibial (Ankle) Artery ??91 ?0.64 ??Biphasic ? Great Toe ?62 ?0.44?? Left ? Pressure (mm Hg) ?? RAFI ??Waveform ?? TBI ?? Brachial Artery ?142 ? Dorsalis Pedis (Ankle) Artery ?86 ?0.61 ??Biphasic ? Posterior Tibial (Ankle) Artery ??90 ?0.63 ??Biphasic ? Great Toe ?46 ?0.32?? Interpretation: RIGHT: Moderate lower extremity arterial occlusive disease. No significant change when compared to the exam done on 01/23/2017. LEFT: Moderate lower extremity arterial occlusive disease to the level of the calf. Toe-brachial index (moderately severe range) substantially lower than ankle-brachial index indicates presence of arterial occlusive disease in the distal calf and foot. No significant change when compared to the exam done on 01/23/2017. Impression: PAD with lifestyle limiting intermittent claudication, likely atheroembolism right great toe Nocturnal leg cramps, hx hypomagnesemia May thurner syndrome with chronic left leg DVT, venous insufficiency with stasis changes and lifelong anticoagulation Ongoing tobacco abuse Recommendations: Ms. Junior has had no significant change in her RAFI assessment compared to her study earlier this month to account for her new left foot symptoms and I feel these are likely more related to her edema and to her peripheral arterial disease. However, her complaints on the right with the great toe seemed consistent with an atheroembolic event and are not infectious as the erythemathat was present did completely resolve with elevation of her leg today on exam. I have urged her to protect this area from injury and reminded her that it will take time to heal. Her right great toepressure was 62 on examination but the base of her toe was not affected and appeared normal on exam. Only the tip of the toe was affected which may not be reflected in the pressure obtained today. I reiterated that I am advocating for medical management at this point so long as she does not develop rest pain or tissue loss. I am happy that she has started aspirin daily but I will continue to advocate for the initiation of statin therapy and complete smoking cessation. I have also again encouraged a walking program. Again, I would not recommend an endovascular attempt at treatment until she is better optimized medially unless she develops rest pain or tissue loss. Her sporadic leg pain/cramps at night remain inconsistent with arterial rest pain and should continue to be evaluated by her PCP. She requested her magnesium level be repeated today as this has not been done by her primary care and she is having difficulty communicating with her primary care physician. She will go to the lab for this today. If this is abnormal I will refer her back to her primary care for management. She will return in 3 months for a follow up evaluation with ABIs. If her condition has not improvedthen we can reconsider intervention but, again, I would stress the importance of smoking cessation prior to any intervention if possible. If she develops rest pain or tissue loss prior to follow up we must be notified. Otherwise, she may continue light compression and periodic elevation to manage her left leg swelling which is likely the result of venous insufficiency. I would not add a tighter compression stockingright now because it seems to provoke more pain. We will need to schedule follow up for her venous stent at her next visit (likely in 12/2017). Please do not hesitate to call with questions/concerns. I spent >50% of a 45 minute visit discussing test results and reviewing the above plan of care /recommendations. documented in this encounter Plan of Treatment Not on file documented as of this encounter Procedures Procedure Name Priority Date/Time Associated Diagnosis Comments MAGNESIUM Routine 02/14/2017 12:59 PM EDT Hypomagnesemia documented in this encounter Results * Magnesium (02/14/2017 12:59 PM EDT) Magnesium 0.74 0.69 - 1.07 mmol/L [facility] Blood specimen (specimen) 02/14/2017 12:59 PM EDT 02/14/2017 1:04 PM EDT Narrative Resulting Agency Comment Spec In Lab Andrea Crouch MD CHEMISTRY ORDERABLES [facility] [place] [address] documented in this encounter Visit Diagnoses Diagnosis PAD (peripheral artery disease) Peripheral vascular disease, unspecified Intermittent claudication Peripheral vascular disease, unspecified Tobacco dependence Tobacco use disorder Hypomagnesemia Disorders of magnesium metabolism documented in this encounter Care Teams Washer Carcass Relationship Specialty Start Date End Date Jerman Powell MD [address] [place] [address] PCP - General 05/30/11 05/30/21 documented as of this encounter
--- OUTSIDE RECORDS SUMMARY | 2024-03-21 14:01 | XMS_ITS | Encounter Summary ---
[place] [address] Care Team Providers Care Analytical Data Scientist Name Role Phone Jerman Powell MD Primary Care Provider [phone] Encounter Details Date Type Department Care Team (Late st Contact Info) Description 03/26/2018 Orders Only [place] [id number] Latasha Jeffrey RN Intermittent claudication; PAD (peripheral artery disease) Social History Tobacco Use Types Packs/Day Years [...] encounter Results * RAFI, legs, multiple levels (03/27/2018 10:55 AM EDT) VB Text Report Department: Vascular Surgery Lab Patient: [id number] (ENDER KURTZ) CPT: 97973 ICD10: I73.9 Referring Physician: AMANDA RAIN MD ?? Phone: Indications: Patient with PVD, now with increasing left 2nd toe pain with discoloration, ? change in RAFI Diabetes mellitus: Yes ICD10 Diagnosis Code: I73.9 Findings: Right ?Pressure (mm Hg) ?? RAFI ??Waveform ?? TBI ?? Brachial Artery ?121 ? Dorsalis Pedis (Ankle) Artery ?83 ?0.69 ??Biphasic ? Posterior Tibial (Ankle) Artery ??89 ?0.74 ??Biphasic ? Great Toe ?68 ?0.56 ?? Second Toe ? 44 ?0.36 ?? Left ? Pressure (mm Hg) ?? RAFI ??Waveform ?? TBI ?? Brachial Artery ?118 ? Dorsalis Pedis (Ankle) Artery ?79 ?0.65 ??Biphasic ? Posterior Tibial (Ankle) Artery ??79 ?0.65 ??Biphasic ? Great Toe ?43 ?0.36 ?? Second Toe ? 47 ?0.39 ?? Interpretation: RIGHT: Mild to moderate lower extremity arterial occlusive disease. No identifiable change when compared to the previous exam performed on 12/18/2017. LEFT: Moderate lower extremity arterial occlusive disease. No identifiable change when compared to the previous exam performed on 12/18/2017. Previous ABIs with change from previous value: Date ?RIGHT DP ?? RIGHT PT ?? RT GR TOE ??RT Sec TOE ??0.91 ? 0.92 ? ---- ? ---- ??0.58(-.33) 0.58(-.34) 0.46 ? ---- ??0.63(+.05) 0.64(+.06) 0.44(-.02) ---- ??0.79(+.16) 0.78(+.14) 0.54(+.10) ---- Current ? 0.69(-.10) 0.74(-.04) 0.56(+.02) 0.36 Date ?LEFT DP ?LEFT PT ?LT GR TOE LT Sec TOE ??0.85 ? 0.90 ? ---- ? ---- ??0.48(-.37) 0.54(-.36) 0.38 ? ---- ??0.61(+.13) 0.63(+.09) 0.32(-.06) ---- ??0.72(+.11) 0.73(+.10) 0.42(+.10) ---- Current ? 0.65(-.07) 0.65(-.08) 0.36(-.06) 0.39 Electronically Signed by: FRANKY WASHINGTON on 2018-04-02 04:12:05 PM [facility] VB Text Report End of Report [facility] 03/27/2018 10:5 5 AM EDT Amanda Rain MD VASCULAR ORDERABLES [facility] documented in this encounter Visit Diagnoses Diagnosis Intermittent claudication Peripheral vascular disease, unspecified PAD (peripheral artery disease) Peripheral vascular disease, unspecified documented in this encounter Care Teams Analytical Data Scientist Relationship Specialty Start Date End Date Jerman Powlel MD [address] [place] [address] PCP - General 05/30/11 05/30/21 documented as of this encounter
--- OUTSIDE RECORDS SUMMARY | 2024-03-21 14:01 | XMS_ITS | Encounter Summary ---
Author Organization [facility] Address [facility] [place] [address] Care Team Providers Care Technology Analyst Name Role Phone Jerman Powell MD Primary Care Provider [phone] Reason for Visit * Reason Comments Leg Swelling left Encounter Details Date Type Department Care Team (Late st Contact Info) Description 08/27/2012 4:00 PM EST Follow-[place] [address] Pelon Regan MD [facility] [place] [address] Leg edema (Primary Dx) Discharge Disposition: Home Social History Tobacco Use [...] Sign Reading Time Taken Comments Blood Pressure 129/71 08/27/2012 3:34 PM EST rig ht arm Pulse 90 08/27/2012 3:32 PM EST Temperature - - Respiratory Rate - - Oxygen Saturation 93% 08/27/2012 3:32 PM EST Inhaled Oxygen Concentration - - Weight 83.9 kg (185 lb) 08/27/2012 3:32 PM EST Height 157.5 cm (5' 2) 08/27/2012 3:32 PM EST Body Mass Index 33.84 08/27/2012 3:32 PM EST documented in this encounter Progress Notes * Pelon Regan MD - 08/27/2012 4:43 PM EST Interval history: Ms Junior returns for evaluation of left leg pain and swelling. She underwent left common iliac vein stent for common iliac stenosis in Sep 2009. States that over the past 2 months she had had predominantly foot pain but also leg swelling. This is very bothersome to her. Prior Vascular History: Balloon angioplasty and stenting of left common iliac vein stenosis (18 mm x 16 mm wall stent; ER MANAGER with 14 mm balloon at 4 atmospheres). 10/01/09 Pex: Mild edema of left leg. 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 B-mode findings suggest chronic DVT. This finding is consistent with exam done 10/19/09. Otherwise, patent common femoral vein and popliteal vein with spontaneous, respirophasic Doppler waveforms that respond normally to augmentation maneuvers. The common femoral vein, sapheno-femoral junction, and femoral vein through the thigh are fully compressible. Posterior tibial and peroneal veins are patent but were not adequately visualized to exclude non-occlusive thrombus due to heavy calcification of the tissue in the calf. No identifiable change from previous exam 10/19/09. The infrarenal IVC, LEFT common and external iliac veins are patent with normal respirophasic Doppler flow signals. No significant change from previous exam. Interpretation: Small, focal non-occlusive popliteal vein thrombus. B-mode findings suggest chronic DVT. No evidence of ilio-femoral deep venous thrombosis. Cannot exclude non-occlusive DVT in the calf due to suboptimal visualization. Today's exam is unchanged from previous exam done 10/19/09. Assessment / Plan: Mild left leg swelling and foot pain. Her duplex shows no signs of in-stent venous stenosis or acute DVT. I have explaiend that it is possible there is some restenosis not seen on duplex and this could be confirmed with venography. Her most bothersome symptom is her foot pain. I have suggested she see a pharm tech as recommended by Dr Powell. I would reserve any further vascularworkup or venography until that were to be completely. I will see her back as needed or in one yearwith surveillance venous duplex documented in this encounter Plan of Treatment Not on file documented as of this encounter Visit Diagnoses Diagnosis Leg edema- Primary Edema documented in this encounter Care Teams Technology Analyst Relationship Specialty Start Date End Date Jerman Powell MD [address] [place] [address] PCP - General 05/30/11 05/30/21 documented as of this encounter
--- OUTSIDE RECORDS SUMMARY | 2024-03-21 14:01 | XMS_ITS | Encounter Summary ---
[place] [address] Care Team Providers Care Low Raw Sugar Cutter Name Role Phone Jerman Powlel MD Primary Care Provider [phone] Reason for Referral * Physical Therapy (Routine) - Specialty Diagnoses / Procedures Referred By Contac t Referred To Contact Physical Therapy Diagnoses PAD (peripheral artery disease) Intermittent claudication Rachel Braun PA [address] [facility] [place] [address] Referral ID Status Reason Start Date Expiration Date V isits Requested Visits Authorized [id number] Evaluate and Treat 01/23/2017 07/22/2017 12 12 Reason for Visit * Reason Comments Leg Pain My legs really hurt Encounter Details Date Type Department Care Team (Late st Contact Info) Description 01/23/2017 4:00 PM EDT Office Visit [place] [address] Rachel Braun PA [address] [facility] [place] [address] PAD (peripheral artery disease); Intermittent claudication; Tobacco dependence Social History Tobacco Use Types Packs/Day Years [...] Sign Reading Time Taken Comments Blood Pressure 146/56 01/23/2017 4:08 PM EDT Pulse 91 01/23/2017 4:08 PM EDT Temperature - - Respiratory Rate - - Oxygen Saturation - - Inhaled Oxygen Concentration - - Weight 69.9 kg (154 lb) 01/23/2017 4:08 PM EDT Height 157.5 cm (5' 2) 01/23/2017 4:08 PM EDT Body Mass Index 28.17 01/23/2017 4:08 PM EDT documented in this encounter Patient Instructions * Patient Instructions* Rachel Braun PA - 01/23/2017 4:00 PM EDT Ms. Kurtz has evidence of significant peripheral arterial disease which accounts for her claudication symptoms. I discussed medical management of this (aspirin 81 mg daily, statin therapy, BP management) including smoking cessation and a walking program. She was very abrasive throughout the visit/discussion and did not want to consider statin therapy or quitting smoking and felt that she wouldnot be able to walk because of pain apart from if we trial pool therapy. However, she also does notwant to undergo a procedure for this and, at this point, I would not recommend an endovascular attempt at treatment until she is better optimized medially unless she develops rest pain or tissue loss. Her leg pain/cramps at night seems inconsistent with arterial rest pain and should continue to be evaluated by her PCP (? mag levels reevalauted). After a lengthy discussion she agreed to begin 81 mg aspirin daily and would like to start pool therapy to see if this will help her to be able to walk more. I have instructed her that unless she is experiencing claudication with this activity she is not helping. Also, if she continues to smoke shewill minimize the benefits of walking because this will discourage collateral development. She willreturn in 1 month for a follow up evaluation with ABIs. If her condition has not improved then we can reconsider intervention but, again, I would stress the importance of smoking cessation prior to any intervention if possible. If she develops rest pain or tissue loss prior to follow up we must be notified. Otherwise, she maycontinue light compression and periodic elevation to manage her left leg swelling which is likely the result of venous insufficiency. I would not add a tighter compression stocking right now because it seems to provoke more pain. We will need to schedule follow up for her venous stent after her arterial follow up/treatment is determined. Please do not hesitate to call with questions/concerns. documented in this encounter Progress Notes * Rachel Braun PA - 01/23/2017 4:00 PM EDT This patient returned to the vascular clinic today for a follow up visit for her leg pain. She continues to complain of left lower leg pain with walking. She is only able to walk about 50 yards (at most) before she must stop to rest (left worse than right calf). This improves with rest andshe denies tissue loss. She continues to experience intermittent cramps sporadically in both legs at night but this occurs equally in both legs in both the calves and the thighs and is not affected by dependency. She has not had her Mag level rechecked since her PCP initiated magnesium replacement.She did undergo RAFI evaluation today prior to her visit to further evaluate her abnormal pulse examnoted at her last visit. She has difficulty walking and believes that if she could do pool therapy (which she has done in the past for a different problem) then she could probably tolerate walking more. She continues to complain of left leg below knee swelling as well as hardening and reddish discoloration of the skin. She cannot tolerate prescription compression hose because these seem to cause more left leg cramps but she has been tolerating TOM hose or Tubigrip. However, these have not adequately controlled her swelling. She is unable to elevate during her normal work day and by the time she arrives home in the evening her left leg is swollen, heavy, and both legs are painful/tired. She does continue to smoke and has no interest at this time in quitting smoking. She is anticoagulated with Coumadin but does not take aspirin or a statin. As a reminder, she was initially evaluated in Aug 2009 for left leg pain, swelling, varicose veins,and discoloration which had been gradually progressing for several years. She had a history of DVT and Protein C deficiency and at that point was already anticoagulated with Coumadin chronically. Shewas ultimately diagnosed with May Thurner syndrome and underwent left iliac vein stent placement on10/01/09. In January 2014 she had angioplasty of a stenosis identified within the previously placed stent. Since that time she has had routine follow- up with serial duplex imaging and remains anticoagulated without bleeding concerns. 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 Smoking status: Current Every Day Smoker Packs/day: 0.50 ??? Smokeless tobacco: Not on file ??? Alcohol use No Medications: Medications 01/24/17 1312 Medication Sig Taking? HYDROcodone-acetaminophen (NORCO) 10-325 mg [...] other ROS negative Physical Exam: Vitals: Vitals: 01/23/17 1608 BP: 146/56 Pulse: 91 Gen: No acute distress. Argumentative and abrasive. Extremities: 1+ brawny edema left lower leg only mild hyperpigmentation, no tissue loss bilateral legs/feet. Stable gait. Vascular Exam: R L DP 1/2 0/2 PT 0/2 0/2 Psych: AAOx3 Labs/Studies: ABIs: 01/24/17 Right ?Pressure (mm Hg) ?? RAFI ??Waveform ?? TBI ?? Brachial Artery ?145 ? Dorsalis Pedis (Ankle) Artery ?84 ?0.58 ??Biphasic ? Posterior Tibial (Ankle) Artery ??84 ?0.58 ??Biphasic ? Great Toe ?66 ?0.46?? Left ? Pressure (mm Hg) ?? RAFI ??Waveform ?TBI ?? Brachial Artery ?133 ? Dorsalis Pedis (Ankle) Artery ?69 ?0.48 ??[place]'S- Biphasic ? Posterior Tibial (Ankle) Artery ??78 ? 0.54 ??[place]'S-Biphasic ? Great Toe ?55 ? 0.38 ?? Interpretation: RIGHT: Moderate lower extremity arterial occlusive disease. Significant deterioration compared to previous exam performed on 08/24/2009. LEFT: Moderate to moderately severe lower extremity arterial occlusive disease. Significant deterioration compared to previous exam performed on 08/24/2009. 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 Kurtz has evidence of significant peripheral arterial disease which accounts for her claudication symptoms. I discussed medical management of this (aspirin 81 mg daily, statintherapy, BP management) including smoking cessation and a walking program. She was very abrasive throughout the visit/discussion and did not want to consider statin therapy or quitting smoking and felt that she would not be able to walk because of pain apart from if we trial pool therapy. However, she also does not want to undergo a procedure for this and, at this point, I would not recommend an endovascular attempt at treatment until she is better optimized medially unless she develops rest pain or tissue loss. Her leg pain/cramps at night seems inconsistent with arterial rest pain and should continue to be evaluated by her PCP (? mag levels reevalauted). After a lengthy discussion she agreed to begin 81 mg aspirin daily and would like to start pool therapy to see if this will help her to be able to walk more. I have instructed her that unless she is experiencing claudication with this activity she is not helping. Also, if she continues to smoke shewill minimize the benefits of walking because this will discourage collateral development. She willreturn in 1 month for a follow up evaluation with ABIs. If her condition has not improved then we can reconsider intervention but, again, I would stress the importance of smoking cessation prior to any intervention if possible. If she develops rest pain or tissue loss prior to follow up we must be notified. Otherwise, she maycontinue light compression and periodic elevation to manage her left leg swelling which is likely the result of venous insufficiency. I would not add a tighter compression stocking right now because it seems to provoke more pain. We will need to schedule follow up for her venous stent after her arterial follow up/treatment is determined. Please do not hesitate to call with questions/concerns. I spent >50% of a 45 minute visit discussing test results and reviewing the above plan of care /recommendations. documented in this encounter Plan of Treatment Scheduled Referrals Name Type Priority Associated Diagnoses Orde r Schedule Referral to Physical Therapy Outpatient Referral Routine PAD (peripheral artery disease) Intermittent claudication Ordered: 01/23/2017 documented as of this encounter Results * RAFI, legs, multiple levels (02/14/2017 11:28 AM EDT) Text Report Department: Vascular Surgery Lab Patient: [id number] (ENDER KURTZ) CPT: 00491 ICD10: I73.9 Referring Physician: FRANKY WASHINGTON ?? Indications: 61 year old female with history of PAD, bilateral lower extremity pain L>R, ? change Diabetes mellitus: Yes ICD10 Diagnosis Code: I73.9, I70.213 Findings: Right ?Pressure (mm Hg) ?? RAFI ??Waveform ?? TBI ?? Brachial Artery ?142 ? Dorsalis Pedis (Ankle) Artery ?90 ?0.63 ??Biphasic ? Posterior Tibial (Ankle) Artery ??91 ?0.64 ??Biphasic ? Great Toe ?62 ?0.44 ?? Left ? Pressure (mm Hg) ?? RAFI ??Waveform ?? TBI ?? Brachial Artery ?142 ? Dorsalis Pedis (Ankle) Artery ?86 ?0.61 ??Biphasic ? Posterior Tibial (Ankle) Artery ??90 ?0.63 ??Biphasic ? Great Toe ?46 ?0.32 ?? Interpretation: RIGHT: Moderate lower extremity arterial [...] compared to the exam done on 01/23/2017. Previous ABIs with change from previous value: Date ?RIGHT DP ?? RIGHT PT ?? RT GR TOE ??LEFT DP ?LEFT PT ?LT GR TOE ??0.91 ? 0.92 ? ---- ? 0.85 ? 0.90 ? ---- ??0.58(-.33) 0.58(-.34) 0.46 ? 0.48(-.37) 0.54(-.36) 0.38 Current ? 0.63(+.05) 0.64(+.06) 0.44(-.02) 0.61(+.13) 0.63(+.09) 0.32(-.06) Electronically Signed by: FRANKY WASHINGTON on 2017-02-18 04:23:59 PM V[facility] VB Text Report End of Report [facility] 02/14/2017 11:2 8 AM EDT Franky Washington MD VASCULAR ORDERABLES [facility] documented in this encounter Visit Diagnoses Diagnosis PAD (peripheral artery disease) Peripheral vascular disease, unspecified Intermittent claudication Peripheral vascular disease, unspecified Tobacco dependence Tobacco use disorder documented in this encounter Care Teams Low Raw Sugar Cutter Relationship Specialty Start Date End Date Jerman Powell MD [address] [place] [address] PCP - General 05/30/11 05/30/21 documented as of this encounter
--- OUTSIDE RECORDS SUMMARY | 2024-03-21 14:01 | XMS_ITS | Encounter Summary ---
[place] [address] Care Team Providers Care Diffuser Operator Name Role Phone Jerman Powell MD Primary Care Provider [phone] Reason for Visit * Reason Onset Date Comments Other 02/04/2016 Recall Encounter Details Date Type Department Care Team (Late st Contact Info) Description 02/04/2016 Telephone [place] [id number] Elinor Seaman Other (Recall) Social History Tobacco Use Types Packs/Day Years [...] encounter Miscellaneous Notes * Telephone Encounter - Elinor Bustamante - 02/04/2016 11:58 AM EDT LLE DVT- Balloon angioplasty and stenting of left common iliac vein stenosis FUV w/Dr. Regan Left msg w/ on 01/10/16. [facility] LVM on 01/18/16 on home #. [facility] Mailed reminder letter and removed recall on 02/04/16. [facility] documented in this encounter Plan of Treatment Not on file documented as of this encounter Visit Diagnoses Not on filedocumented in this encounter Care Teams Diffuser Operator Relationship Specialty Start Date End Date Jerman Powell MD [address] [place] [address] PCP - General 05/30/11 05/30/21 documented as of this encounter
--- OUTSIDE RECORDS SUMMARY | 2024-03-21 14:01 | XMS_ITS | Encounter Summary ---
[place] [address] Care Team Providers Care Auto Mechanics Teacher Name Role Phone Jerman Powell MD Primary Care Provider [phone] Encounter Details Date Type Department Care Team (Latest Contact Info) Description 02/14/2017 11:22 AM EDT - 02/14/2017 11:59 PM EDT Hospital Encounter [place] [address] Alina Marrero, MARKO PAD (peripheral artery disease); Intermittent claudication Discharge Disposition: Home Social History [...] Misc 1 Units by Other route. 06/17/2009 HYDROcodone-acetamino phen (NORCO) 10-325 mg Tablet Take [...] capsule Take 1,500 mg by mouth daily. triamcinolone (KENALOG) 0.1 % Lotion Apply 1 [...] Diagnosis Comments RAFI, LEGS, MULTIPLE LEVELS Routine 02/14/2017 11:28 AM EDT PAD (peripheral artery disease) Intermittent claudication documented in this encounter Results * RAFI, legs, multiple levels (02/14/2017 11:28 AM EDT) VB Text Report Department: Vascular Surgery Lab Patient: [id number] (ENDER KURTZ) CPT: 33750 ICD10: I73.9 Referring Physician: FRANKY MONTES ?? Indications: 61 year old female with [...] 0.61(+.13) 0.63(+.09) 0.32(-.06) Electronically Signed by: FRANKY MONTES on 2017-02-18 04:23:59 PM [facility] VB Text Report End of Report [facility] 02/14/2017 11:2 8 AM EDT Franky Montes MD VASCULAR ORDERABLES Performing Organization Address City/State/[facility] Co de Phone Number [facility]CU[facility] documented in this encounter Visit Diagnoses Diagnosis PAD (peripheral artery disease) Peripheral vascular disease, unspecified Intermittent claudication Peripheral vascular disease, unspecified documented in this encounter Care Teams Auto Mechanics Teacher Relationship Specialty Start Date End Date Jerman Powell MD [address] [place] [address] PCP - General 05/30/11 05/30/21 documented as of this encounter
--- OUTSIDE RECORDS SUMMARY | 2024-03-21 14:01 | XMS_ITS | Encounter Summary ---
Author Organization [facility] [place] [address] Care Team Providers Care Charge Manager Name Role Phone Oscar Callahan MD Primary Care Provider [phone] Encounter Details Date Type Department Care Team (Late st Contact Info) Description 09/15/2010 9:50 AM EST Office [place] [phone] Jie Garay APRN [facility] [place] [address] Discharge Disposition: Home Social History Tobacco Use Types Packs/Day Years Used Date Smoking Tobacco: Never Assessed Sex and Gender Information Value Date Recorded Sex Assigned at Not on file Gender Identity Not on file Sexual Orientation Not on file documented as of this encounter Plan of Treatment Not on file documented as of this encounter Visit Diagnoses Not on filedocumented in this encounter Care Teams Charge Manager Relationship Specialty Start Date End Date Oscar Callahan MD [address] [place] [address] PCP - General 07/12/10 11/08/10 documented as of this encounter
--- OUTSIDE RECORDS SUMMARY | 2024-03-21 14:01 | XMS_ITS | Encounter Summary ---
[place] [address] Care Team Providers Care Programming Intern Name Role Phone Jerman Powell MD Primary Care Provider [phone] Encounter Details Date Type Department Care Team (Late st Contact Info) Description 03/26/2018 Telephone [place] [phone] Svetlana Sanon Social History Tobacco Use Types Packs/Day Years [...] encounter Miscellaneous Notes * Telephone Encounter - Svetlana Sanon - 03/26/2018 10:34 AM EDT Patient needs to be seen this week per triage (Mar 27-). Needs RAFI -pt. states that tip of her 2ndtoe on her L toe is turning purple and having increased pain, and appt w/ Priscila. LM/VM to call back to schedule. documented in this encounter Plan of Treatment Not on file documented as of this encounter Visit Diagnoses Not on filedocumented in this encounter Care Teams Programming Intern Relationship Specialty Start Date End Date Jerman Powell MD [address] [place] [address] PCP - General 05/30/11 05/30/21 documented as of this encounter
--- OUTSIDE RECORDS SUMMARY | 2024-03-21 14:01 | XMS_ITS | Encounter Summary ---
[place] [address] Care Team Providers Care Branch Lending Officer Name Role Phone Jerman Powell MD Primary Care Provider [phone] Encounter Details Date Type Department Care Team (Latest Contact Info) Description 12/09/2014 1:30 PM EDT Ancillary Appointment [place] [phone] [place], [place] May-Thurner syndrome Social History Tobacco Use Types [...] Comments DUPLEX FOR DVT, LEG, UNILAT Routine 12/09/2014 1:47 PM EDT May-Thurner syndrome documented in this encounter Results * Duplex for DVT, Leg, Unilat (12/09/2014 1:47 PM EDT) VB Text Report Department: Vascular Surgery Lab Patient: [id number] (ENDER KURTZ) CPT Code: 22756 ICD-9: 451.19 Referring Physician: KRYSTLE REGAN Indication: ??s/p LEFT iliac vein stenting,? DVT ICD9 Diagnosis Code: 451.19 LEFT: There is non-occlusive thrombus in one of the paired femoral veins from the prox through distal thigh into the popliteal vein. The non-occlusive thrombus in the femoral vein in the the proximal thigh is a new finding compared to previous [...] in the femoral vein in the the proximal thigh is a new finding compared to previous exam on 02/18/2014. Cannot exclude non-occlusive DVT in the calf due to sub-optimal visualization. Patent iliac venous system in areas visualized. Notification: Patient is seeing Dr. Regan in clinic today Electronically Signed by: KRYSTLE REGAN on 2014-12-14 10:54:24 AM [facility] VB Text Report End of Report [facility] 12/09/2014 1:47 PM EDT Krystle Regan MD VASCULAR ORDERABLES Performing Organization Address City/State/[facility] Co de Phone Number [facility] documented in this encounter Visit Diagnoses Diagnosis May-Thurner syndrome Compression of vein documented in this encounter Care Teams Branch Lending Officer Relationship Specialty Start Date End Date Jerman Powell MD [address] [place] [address] PCP - General 05/30/11 05/30/21 documented as of this encounter
--- OUTSIDE RECORDS SUMMARY | 2024-03-21 14:01 | XMS_ITS | Encounter Summary ---
[place] [address] Care Team Providers Care Breast Worker Name Role Phone Jerman Powell MD Primary Care Provider [phone] Encounter Details Date Type Department Care Team (Latest Contact Info) Description 12/18/2017 9:27 AM EDT - 12/18/2017 11:59 PM EDT Hospital [place] [address] Melissa Cordova, RVT PAD (peripheral artery disease); Intermittent claudication Discharge [...] Take 81 mg by mouth daily. 04/17/2023 methylPREDNISolone (MEDROL DOSPACK) 4 mg Tablets, Dose Pack Take 4 mg by mouth. amitriptyline (ELAVIL) 10 mg Tablet Take 10 mg by mouth. 03/26/2018 dapsone 100 mg Tablet Take 75 mg by mouth. 11/26/2018 gabapentin (NEURONTIN) 300 mg Capsule Take 300 mg by mouth. 2018 warfarin (COUMADIN) 5 mg TabletIndications:5mg Mon, Wed, Fri 7.5mg Tues, Thur, Sat, Sun Take by mouth daily. Indications: 5mg Mon, Wed, Fri 7.5mg Tues, Thur, Sat, Sun 04/17/2023 chlorhexidine (PERIDEX) 0.12 % Mouthwash 07/24/2017 11/26/2018 doxycycline (VIBRAMYCIN) 100 mg Capsule 05/29/2017 03/26/2018 loperamide (IMODIUM) 2 mg Capsule 07/27/2017 11/26/2018 magnesium oxide (MAG-OX) 400 mg Tablet TAKE ONE TABLET BY MOUTH THREE TIMES A DAY 4 02/27/2017 03/26/2018 nystatin (MYCOSTATIN) 100,000 unit/mL Suspension 05/29/2017 03/26/2018 predniSONE (DELTASONE) 20 mg Tablet 06/12/2017 03/26/2018 triamcinolone (KENALOG) 0.1 % Lotion Apply 1 [...] Diagnosis Comments RAFI, LEGS, MULTIPLE LEVELS Routine 12/18/2017 9:34 AM EDT PAD (peripheral artery disease) Intermittent claudication documented in this encounter Results * RAFI, legs, multiple levels (12/18/2017 9:34 AM EDT) VB Text Report Department: Vascular Surgery Lab Patient: [id number] (ENDER KURTZ) CPT: 91886 ICD10: I73.9;I70.213 Referring Physician: HOLLIE LAROSE ?? Phone: Indications: Bilateral LE claudication, PVD, going to PT for left sciatica pain, ? peripheral perfusion Diabetes mellitus: Yes ICD10 Diagnosis Code: I73.9, I70.213 Findings: Right ?Pressure (mm Hg) ?? RAFI ??Waveform ?? TBI ?? Brachial Artery ?136 ? Dorsalis Pedis (Ankle) Artery ?112 ? 0.79 ??Biphasic ? Posterior Tibial (Ankle) Artery ??111 ? 0.78 ??Biphasic ? Great Toe ?76 ?0.54 ?? Left ? Pressure (mm Hg) ?? RAFI ??Waveform ?? TBI ?? Brachial Artery ?142 ? Dorsalis Pedis (Ankle) Artery ?102 ? 0.72 ??Biphasic ? Posterior Tibial (Ankle) Artery ??103 ? 0.73 ??Biphasic ? Great Toe ?59 ?0.42 ?? Interpretation: RIGHT: Mild lower extremity arterial occlusive disease. Significant improvement compared to previous exam. LEFT: Mild lower extremity arterial occlusive disease to the level of the distal calf. Toe/brachial index lower than ankle/brachial index indicates presence of moderate arterial occlusive disease in the foot. Improvement compared to previous exam. Previous ABIs with change from previous value: Date RIGHT DP RIGHT PT RT GR TOE RT Sec TOE LEFT DP LEFT PT LT GR TOE LT Sec TOE 0.91 0.92 ---- ---- 0.85 0.90 ---- ---- 0.58(-.33) 0.58(-.34) 0.46 ---- 0.48(-.37) 0.54(-.36) 0.38 ---- 0.63(+.05) 0.64(+.06) 0.44(-.02) ---- 0.61(+.13) 0.63(+.09) 0.32(-.06) ---- Current 0.79(+.16) 0.78(+.14) 0.54(+.10) ---- 0.72(+.11) 0.73(+.10) 0.42(+.10) ---- Electronically Signed by: HOLLIE LAROSE on 2017-12-20 03:53:49 PM VASCUBASE VB Text Report End of Report VASCUBASE 12/18/2017 9:34 AM EDT Hollie Larose MD VASCULAR ORDERA BLES VASCUBASE documented in this encounter Visit Diagnoses Diagnosis PAD (peripheral artery disease) Peripheral vascular disease, unspecified Intermittent claudication Peripheral vascular disease, unspecified documented in this encounter Care Teams Breast Worker Relationship Specialty Start Date End Date Jerman Powell MD [address] [place] [address] PCP - General 05/30/11 05/30/21 documented as of this encounter
--- OUTSIDE RECORDS SUMMARY | 2024-03-21 14:01 | XMS_ITS | Encounter Summary ---
Author Organization [facility] [place] [address] Care Team Providers Care Unloading Checker Name Role Phone Oscar Callahan MD Primary Care Provider [phone] Encounter Details Date Type Department Care Team (Late st Contact Info) Description 04/14/2011 Abstract Dermatology [address] [place], [place] [address] Krissy Espana, RN Social History Tobacco Use Types Packs/Day Years Used Date Smoking Tobacco: Former Alcohol Use Standard Drinks/Week Comments Not Asked 0 (1 standard drink = 0.6 oz pur e alcohol) Sex and Gender Information Value Date Recorded Sex Assigned at Not on file Gender Identity Not on file Sexual Orientation Not on file documented as of this encounter Plan of Treatment Not on file documented as of this encounter Visit Diagnoses Not on filedocumented in this encounter Care Teams Unloading Checker Relationship Specialty Start Date End Date Oscar Callahan MD [address] [place], [place] [address] PCP - General 11/10/10 05/29/11 documented as of this encounter
--- OUTSIDE RECORDS SUMMARY | 2024-03-21 14:01 | XMS_ITS | Encounter Summary ---
[place] [address] Care Team Providers Care Professor Of Kinesiology Name Role Phone Jerman Powell MD Primary Care Provider [phone] Encounter Details Date Type Department Care Team (Latest Contact Info) Description 11/12/2013 11:00 AM EDT Ancillary Appointment [place] [phone] Alina Marrero, MARKO Chronic deep vein thrombosis of left lower extremity (Primary Dx) Social History Tobacco Use Types [...] Comments DUPLEX FOR DVT, LEG, UNILAT Routine 11/12/2013 11:04 AM EDT Chronic deep vein thrombosis of left lower extremity documented in this encounter Results * Duplex for DVT, Leg, Unilat (11/12/2013 11:04 AM EDT) VB Text Report Department: Vascular Surgery Lab Patient: [id number] (ENDER KURTZ) CPT Code: 65439 ICD-9: 451.19 Referring Physician: KRYSTLE REGAN Indication: ICD9 Diagnosis Code: 451.19 LEFT: There is non-occlusive thrombus in one of the paired femoral veins from the mid through distal thigh into the popliteal vein. Otherwise, patent common femoral vein and popliteal vein with spontaneous, respirophasic Doppler waveforms that respond normally to augmentation maneuvers. The common femoral vein, sapheno-femoral junction, and femoral vein through the proximal thigh are fully compressible. Posterior tibial and peroneal veins are patent by color flow but were not adequately visualized to exclude non-occlusive thrombus due to heavy calcification of the tissue in the calf. The external iliac vein is patent with normal respirophasic Doppler flow signals. No significant change from previous exam. The common iliac vein and IVC were not visualized due to overlying bowel gas. Interpretation: LEFT: There is non-occlusive deep vein thrombus in one of the paired femoral veins from the mid through distal thigh into the popliteal vein. Cannot exclude non-occlusive DVT in the calf due to suboptimal visualization. Progression in one of the femoral veins in the thigh with no identifiable change in the popliteal vein compared to the previous exam done on 08/27/2012. Electronically Signed by: KRYSTLE REGAN on 2013-11-12 11:49:08 AM VASCUBASE VB Text Report End of Report VASCUBASE 11/12/2013 11:0 4 AM EDT Krystle Regan MD VASCULAR ORDERABLES VASCUBASE documented in this encounter Visit Diagnoses Diagnosis Chronic deep vein thrombosis of left lower extremity- Primary Chronic venous embolism and thrombosis of unspecified deep vessels of lower extremity documented in this encounter Care Teams Professor Of Kinesiology Relationship Specialty Start Date End Date Jerman Powell MD [address] [place] [address] PCP - General 05/30/11 05/30/21 documented as of this encounter
--- OUTSIDE RECORDS SUMMARY | 2024-03-21 14:01 | XMS_ITS | Encounter Summary ---
Author Organization [facility] Address [facility] [place] [address] Care Team Providers Care Thread Inspector Name Role Phone Oscar Callahan MD Primary Care Provider [phone] Encounter Details Date Type Department Care Team (Late st Contact Info) Description 07/28/2010 12:50 PM EST Office Visit [place] [id number] Osiel Malin, PA [facility] [place] [address] Discharge Disposition: Home Social History Tobacco Use [...] on filedocumented in this encounter Care Teams Thread Inspector Relationship Specialty Start Date End Date Oscar Callahan MD [address] [place] [address] PCP - General 07/12/10 11/08/10 documented as of this encounter
--- OUTSIDE RECORDS SUMMARY | 2024-03-21 14:01 | XMS_ITS | Encounter Summary ---
[place] [address] Care Team Providers Care Car Top Bolter Name Role Phone Jerman Powell MD Primary Care Provider [phone] Encounter Details Date Type Department Care Team (Late st Contact Info) Description 11/26/2013 Orders [place] [phone] Edna Knapp RN PVD (peripheral vascular disease) with claudication (Primary Dx) Social History Tobacco Use Types [...] documented as of this encounter Results * VS Angiogram/intervention (vascular) (01/30/2014 9:35 AM [...] previous common iliac vein stent (10x40 mm Brixey) to 12 nydia ?? 6. Completion IVUS ?? Surgeons: Sonia Regan ?? Contrast: Visipaque - 12 cc ?? FT: 4.6 minutes ?? Antibiotics: None ?? Heparin: None ?? Protamine: None ?? Sedation: Versed- 3 mg, Fentanyl- 175 mcg ?? Indications: ?? Ms. Junior is a 57 F who presents in [...] - Sheath access in left groin (6 Uruguayan) ?? - Venogram revealed patent left common [...] previous common iliac vein stent (10x40 mm Brixey) to 12 nydia ?? - Completion IVUS [...] was then exchanged for a short 5 [place] sheath. The sheath was then upsized again to a short six [place]ruguayan sheath over the wire. The wire was then exchanged through a 5 [place]ayan Berenstein catheter for an 0.18 V18 wire. The catheter was removed and an IVUS probe was advanced to the proximal stent and then pulled back across the stent and the entire stented area was visualized with findings as above. The IVUS probe was removed and a 10x40 mm Brixey balloon was advanced to the distal stent [...] Pedrito Scott M.D. ?? PGY-2 ?? Pager [phone] ?? IAttending addendum: I was present for and participated in this entire case. I agree with the documentation above ? Film and interpretation reviewed by the attending Procedure Note Pelon Regan MD - 02/13/2014 Vascular Surgery Angio [...] 3 mg, Fentanyl- 175 mcg Indications: Ms. Junior is a 57 F who presents in [...] - Sheath access in left groin (6 Uruguayan) - Venogram revealed patent left common iliac [...] previous common iliac vein stent (10x40 mm Brixey) to 12 nydia - Completion IVUS revealed [...] sheath was then exchanged fora short 5 [place]ayan sheath. The sheath was then upsized again [...] IVUS probewas removed and a 10x40 mm Brixey balloon was advanced to the distal stentand [...] DVT study Pedrito Scott M.D. PGY-2 Pager [phone] IAttending addendum: I was present for and participated in this entirecase. I agree with the documentation above Film and interpretation reviewed by the attending Pelon Regan MD IMG IR ORDERABLES * (ABNORMAL) Creatinine (01/30/2014 6:12 AM EDT) Creatinine 0.65(L) 0.70 - 1.20 mg/dL [facility] Comment: Please note that the pediatric reference intervals supplied above were not validated at [facility]. Results from pediatric patients should be interpreted in conjunction to the patient's age, height and muscle mass. Estimated GFR >60 >=60 [facility] Comment: This estimated GFR (eGFR) value [...] the following links into your internet browser. [email or web address] Blood specimen (specimen) 01/30/2014 6:12 AM EDT 01/30/2014 6:15 AM EDT Narrative Resulting Agency Comment Spec In Lab Pelon Regan MD CHEMISTRY ORDERABLES [facility] documented in this encounter Visit Diagnoses Diagnosis PVD (peripheral vascular disease) with claudication- Primary Peripheral vascular disease, unspecified Vein compression - treated with stent Compression of vein PVD (peripheral vascular disease) with claudication Peripheral vascular disease, unspecified Compression of vein Protein C deficiency Primary hypercoagulable state documented in this encounter Care Teams Car Top Bolter Relationship Specialty Start Date End Date Jerman Powell MD [address] [place] [address] PCP - General 05/30/11 05/30/21 documented as of this encounter
--- OUTSIDE RECORDS SUMMARY | 2024-03-21 14:01 | XMS_ITS | Encounter Summary ---
Author Organization [facility] [place] [address] Care Team Providers Care Surgical Services Coordinator Name Role Phone Jerman Powell MD Primary Care Provider [phone] Encounter Details Date Type Department Care Team (Late st Contact Info) Description 08/06/2017 Telephone Vascular [place] [phone] Latasha Jeffrey RN Social History Tobacco Use Types Packs/Day [...] encounter Miscellaneous Notes * Telephone Encounter - Latasha Jeffrey RN - 08/06/2017 9:46 AM EST Patient's just called in this am and said that Janna is having increased edema in her legs and now her foot is swollen. She is also now having difficulty walking with the increased swelling. He would like to have her seen and also get a script for PT as that has helped in the past. was transferred to schedulers and appointment was going to be set up for patient to be seen. documented in this encounter Plan of Treatment Not on file documented as of this encounter Visit Diagnoses Not on filedocumented in this encounter Care Teams Surgical Services Coordinator Relationship Specialty Start Date End Date Jerman Powell MD [address] [place] [address] PCP - General 05/30/11 05/30/21 documented as of this encounter
--- OUTSIDE RECORDS SUMMARY | 2024-03-21 14:01 | XMS_ITS | Encounter Summary ---
Author Organization [facility] [place] [address] Care Team Providers Care Manager Labor Relations Name Role Phone Jerman Powell MD Primary Care Provider [phone] Reason for Visit * Reason Comments Skin Check Encounter Details Date Type Department Care Team (Late st Contact Info) Description 10/16/2012 3:45 PM EST Office Visit Dermatology [address] [place], [place] [address] Fausto Luna MD [address] [place] [place] [address] Dermatitis herpetiformis (Primary Dx); Neurodermatitis Social History Tobacco Use Types Packs/Day Years [...] of this encounter Visit Diagnoses Diagnosis Dermatitis herpetiformis- Primary Neurodermatitis Lichenification and lichen simplex chronicus documented in this encounter Care Teams Manager Labor Relations Relationship Specialty Start Date End Date Jerman Powell MD [address] [place], [place] [id number] PCP - General 05/30/11 05/30/21 documented as of this encounter
--- OUTSIDE RECORDS SUMMARY | 2024-03-21 14:01 | XMS_ITS | Encounter Summary ---
[place] [address] Care Team Providers Care Blast Furnace Auxiliaries Supervisor Name Role Phone Jerman Powell MD Primary Care Provider [phone] Reason for Visit * Reason Comments Follow-up Encounter Details Date Type Department Care Team (Late st Contact Info) Description 05/30/2011 1:45 PM EDT Office Visit Dermatology [address] [place] [address] [address] [place] [address] Fausto Luna MD [address] [place] [address] Dermatitis herpetiformis (Primary Dx) Social History Tobacco Use Types [...] Progress Notes * Fausto Luna MD - 05/30/2011 2:16 PM EDT Problems: 1. Followup dermatitis herpetiformis. 2. On Dapsone 100mg a day. 3. Acne excoriae. Janna follows up and seems to be better controlled with 100mg a day of Dapsone. She has been taking it in two divided doses. She is not having any significant itching of her scalp as long as she uses the Synalar Solution on a nightly basis p.r.n. and once a week with Selenium Sulfide Lotion. The patient is accompanied today by her daughter Krissy. Physical examination reveals a few excoriated papules over the elbows and forearms but really only minimal findings clinically today. She has some acne excoriae throughout the occipital scalp and vertex of the scalp but she states that they are not symptomatic or itchy. Assessment & Plan: Dermatitis herpetiformis/gluten enteropathy. a. Continue Dapsone 50mg one p.o. BID, #60 dispensed with five refills. b. Will need to check labs at the time of return visit in six months. The patient's last Dapsone labs were in October of 2010. Acne excoriae of scalp. a. Continue with Synalar Solution apply to scalp on a nightly basis p.r.n. b. Continue with Selenium Sulfide 2.5% Lotion as a shampoo once weekly. The patient has refills of both from February. c. RTC in six months for repeat check. documented in this encounter Plan of Treatment Not on file documented as of this encounter Visit Diagnoses Diagnosis Dermatitis herpetiformis- Primary documented in this encounter Care Teams Blast Furnace Auxiliaries Supervisor Relationship Specialty Start Date End Date Jerman Powell MD [address] [place] [address] PCP - General 05/30/11 05/30/21 documented as of this encounter
--- OUTSIDE RECORDS SUMMARY | 2024-03-21 14:01 | XMS_ITS | Encounter Summary ---
[place] [address] Care Team Providers Care Lead Caregiver Name Role Phone Destiney Powell MD Primary Care Provider Encounter Details Date Type Department Care Team (Late st Contact Info) Description 08/27/2012 Orders [place] [phone] Destiney Powell MD [address] [place] [address] [id number] Edema of left lower extremity (Primary Dx) Social [...] Results * Duplex for DVT, Leg, Unilat (08/27/2012 2:55 PM EST) VB Text Report Department: Vascular Surgery Lab Patient: [id number] (TESSIEENDER ROBB) CPT Code: 36788 ICD-9: 782.3 Referring Physician: DESTINEY POWELL Indication: ??Edema LEFT foot, H/O L CIV stent for [...] is unchanged from previous exam done 10/19/09. Signed by KRYSTLE EDMONDS on 2012-09-02 02:14:25 PM VASCUBASE VB Text Report End of Report VASCUBASE 08/27/2012 2:55 PM EST Destiney Powell MD VASCULAR ORDERABLES VASCUBASE documented in this encounter Visit Diagnoses Diagnosis Edema of left lower extremity- Primary Edema documented in this encounter Care Teams Lead Caregiver Relationship Specialty Start Date End Date Destiney Powell MD [address] [place] [address] PCP - General 05/30/11 05/30/21 documented as of this encounter
--- OUTSIDE RECORDS SUMMARY | 2024-03-21 14:01 | XMS_ITS | Encounter Summary ---
[place] [address] Care Team Providers Care Insulation Worker Interior Surface Name Role Phone Jerman Powell MD Primary Care Provider [phone] Reason for Referral * Diagnostic Test (Routine) - Specialty Diagnoses / Procedures Referred By Candelario t Referred To Contact Radiology Diagnoses Left shoulder pain, unspecified chronicity Procedures MRI Shoulder wo Contrast Left (Generic) Nila White PA [facility] [place] [address] [place] [address] Referral ID Status Reason Start Date Expiration Date Visits Requested Visits Authorized [id number] Specialty Service Requested 03/26/2018 03/26/2019 1 1 Reason for Visit * Reason Comments Left Shoulder Pain * Consultation (Routine) - Closed Specialty Diagnoses / Procedures Referred By Candelario t Referred To Contact Orthopaedics Diagnoses painful left shoulder Soren Tran MD [address] [place] [address] [facility] [address] [place] [phone] Referral ID Status Reason Start Date Expiration Date V isits Requested Visits Authorized [id number] Closed Consult, Test & Treat Connection Center 01/28/2018 01/28/2019 1 1 Encounter Details Date Type Department Care Team (Late st Contact Info) Description 03/26/2018 10:30 AM EDT Office [place] [address] Left shoulder pain, unspecified chronicity Social History Tobacco Use Types Packs/Day Years [...] Sign Reading Time Taken Comments Blood Pressure 119/51 03/26/2018 10:27 AM EDT Pulse 86 03/26/2018 10:27 AM EDT Temperature - - Respiratory Rate - - Oxygen Saturation - - Inhaled Oxygen Concentration - - Weight 70.8 kg (156 lb) 03/26/2018 10:27 AM EDT staed Height 157.5 cm (5' 2) 03/26/2018 10:27 AM EDT sated Body Mass Index 28.53 03/26/2018 10:27 AM EDT documented in this encounter Progress Notes * Nila White PA - 03/26/2018 10:30 AM EDT PATIENT NAME: Janna Junior AGE: 62 y.o. MR#: [id number] DATE OF VISIT: 03/26/2018 DATE OF INJURY/ONSET: October 2017 STAFF: Dr. Ta CHIEF COMPLAINT: Left shoulder pain HISTORY OF PRESENT ILLNESS: Ms. Junior is a right hand dominant 62 y.o. female who comes into clinic today for evaluation of the left shoulder. She has had long-standing left shoulder pain, but hadan increase in symptoms this past spring after lifting a heavy bucket of sand. She has had persistent pain over the anterior aspect of her shoulder since this injury and has been unable to actively reach overhead. She also has pain at bedtime. She denies having any history of major falls or fractures involving her left shoulder. She has seen Dr. Tran for her shoulder complaints. She has had at least 2 cortisone injections and states that she had good pain relief after the injections. She holcomb s not had any recent physical therapy. She is seen by vascular surgery at [facility] for a history of arterial disease and history of DVT. She is on Coumadin. There was some concern about whether she wouldbe a surgical candidate due to her vascular disease. She has not had any x-rays of her shoulder recently. She believes that she had an MRI in the past. Medications and Allergies were reviewed in eD-[facility] PAST MEDICAL HX: Past Medical History: Diagnosis Date ??? May-Thurner syndrome PAST SURGICAL HX: Past Surgical History: Procedure Laterality Date ??? CHOLECYSTECTOMY, LAPAROSCOPIC 03/18/1992 ??? VASCULAR SURGERY Left 10/01/2009 Balloon angioplasty and stenting of left common iliac vein stenosis ??? 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 Smoking status: Current Every Day Smoker Packs/day: 0.50 ??? Smokeless tobacco: Never Used ??? Alcohol use No ??? Drug use: No ??? Sexual activity: Not on file ROS: Constitutional: neg ENT: neg Cardiac: neg Hematologic: neg Pulmonary: neg GI: neg Endocrine: neg Skin: neg Neurologic: neg Musculoskeletal: see HPI General Health, Prior Treatments, PreExisting Condition, Health Habits, About You 03/26/2018 PROMIS-10 General Health Fair PROMIS-10 Quality of Life Good PROMIS-10 Physical Health Fair PROMIS-10 Mental Health Good PROMIS-10 Social Activity Good PROMIS-10 Everyday Activities A little PROMIS-10 Pain 7 PROMIS-10 Fatigue Moderate PROMIS-10 Social Roles Good PROMIS-10 Anxious or Depressed Always PROMIS PHYSICAL SCORE (range 16-68) 32.4 PROMIS MENTAL SCORE (range 21-68) 38.8 Treatments Tried Injection of steroids or cortisone Prior Surgery 0 Alzheimers or dementia No Cirrohosis or liver disease No HIV/AIDS No Pain in more than one joint in legs Yes Back or neck pain Yes Heart attack No Heart failure No Unclog/bypass leg arteries No Stroke, blood clot, TIA No Asthma No Emphysema, chronic bronchities, or COPD No Stomach ulcers/peptic ulcer disease No Diabetes Yes Diabetes caused problems with kidneys No Diabetes caused problems with eyes No Poor kidney function No Rheumatic condtions No Cancer No Weight (lbs) 157 Height (feet) 5 feet Height (Inches) 2 BMI 28.71 (Overweight) Ever used tobacco products Yes Tobacco [...] less than $35,000 # People Supported 2 Frisian, , No, not Frisian// Race White Health Literacy Extremely Currently working Yes Current job situation Part-time due to health [facility] [place] Response 03/26/2018 ASES VAS-LEFT 3 ASES ADL-LEFT ARM 9 ASES LEFT ARM 50 PHYSICAL EXAM: Ms. Junior is a 62 y.o. female who is alert and oriented. She is in no acute discomfort and is resting comfortably in the exam room. Inspection: No erythema, ecchymosis, or swelling over the left shoulder. Palpation: She is nontender over the acromioclavicular joint. She has some pain over the anterior aspect of her shoulder over her biceps and glenohumeral joint line. She is not having any significantpain over the scapula and lateral aspect of the shoulder. She has some neck pain with cervical spine range of motion, but does not have any point tenderness over the cervical spine. ROM: She is able to perform active forward flexion to about 100??. Passively she can get to 150?? with pain at end range. Her active and passive external rotation is to about 20??. She can internallyrotate to L1. Strength: She has 5-/5 internal rotation with a negative belly press, 4/5 external rotation, 3+/5 forward flexion, unable to assess empty can due to pain Neurovascular: Intact motor function of the radial, median, ulnar, axillary and musculocutaneous nerves. Intact sensation along radial, median, ulnar, axillary, and lateral antebrachial cutaneous nerve distributions. Good hand perfusion. DIAGNOSTIC STUDIES: She declines x-rays ASSESSMENT: Left shoulder pain with rotator cuff weakness and limited overhead range of motion PLAN: Her clinical exam is concerning for a rotator cuff tear. We will obtain an MRI of her left shoulder. If she in fact has a full-thickness rotator cuff tear we discussed that this may be something that we would consider surgical treatment for, but we would need clearance from vascular surgery to determine whether she would be a candidate for elective surgery. She should continue with gentle passive shoulder range of motion exercises in the meantime to help minimize her stiffness. She will follow up in clinic after the MRI. The patient understands to contact us if they have any other questions or concerns. The above documentation was completed using [employer] voice recognition software. documented in this encounter Plan of Treatment Scheduled Orders Name Type Priority Associated Diagnoses Orde r Schedule MRI Shoulder wo Contrast Left (Generic) Imaging Routine Left shoulder pain, unspecified chronicity Expected: 03/26/2018 (Approximate), Expires: 09/25/2018 documented as of this encounter Visit Diagnoses Diagnosis Left shoulder pain, unspecified chronicity documented in this encounter Care Teams Insulation Worker Interior Surface Relationship Specialty Start Date End Date Jerman Powell MD [address] [place] [address] PCP - General 05/30/11 05/30/21 documented as of this encounter
--- OUTSIDE RECORDS SUMMARY | 2024-03-21 14:01 | XMS_ITS | Encounter Summary ---
Author Organization [facility] [place] [address] Care Team Providers Care Body Sander Name Role Phone Jerman Powell MD Primary Care Provider [phone] Encounter Details Date Type Department Care Team (Late st Contact Info) Description 11/09/2010 11:00 AM EDT Office Visit Dermatology [address] [place], [place] [address] Fausto Luna MD [address] [place] [address] Social History Tobacco Use Types Packs/Day Years Used Date Smoking Tobacco: Never Assessed Sex and Gender Information Value Date Recorded Sex Assigned at Not on file Gender Identity Not on file Sexual Orientation Not on file documented as of this encounter Plan of Treatment Not on file documented as of this encounter Visit Diagnoses Not on filedocumented in this encounter Care Teams Body Sander Relationship Specialty Start Date End Date Jerman Powell MD [address] [place] [address] PCP - General 11/09/10 11/09/10 documented as of this encounter
--- OUTSIDE RECORDS SUMMARY | 2024-03-21 14:01 | XMS_ITS | Encounter Summary ---
[place] [address] Care Team Providers Care Office Helper Clerical Name Role Phone Jerman Powell MD Primary Care Provider [phone] Encounter Details Date Type Department Care Team (Latest Contact Info) Description 08/07/2017 2:30 PM EST - 08/07/2017 11:59 PM [facility] Hospital Encounter [place] [address] Theo Aguilar, RVT Leg edema, left Discharge Disposition: Home Social History Tobacco [...] capsule Take 1,500 mg by mouth daily. methylPREDNISolone (MEDROL DOSPACK) 4 mg Tablets, Dose [...] Comments DUPLEX FOR DVT, LEG, UNILAT Routine 08/07/2017 2:33 PM EST Leg edema, left documented in this encounter Results * Duplex for DVT, Leg, Unilat (08/07/2017 2:33 PM EST) VB Text Report Department: Vascular Surgery Lab Patient: [id number] (ENDER KURTZ) CPT: 85083 ICD10: I82.512;R60.0 Referring Physician: HOLLIE LAROSE ?? Phone: Indications: ??LEFT iliac vein stent, hx chronic DVT, sub therapeutic INR, swelling, ? DVT ICD10 Diagnosis Code: R60.0 LEFT: There is chronic appearing non-occlusive thrombus [...] the tissue in the calf. Interpretation: LEFT: Chronic non-occlusive thrombus in one of the paired femoral veins from the prox through distal thigh into the popliteal vein with no identifiable change compared to previous exam done 01/09/2017. Cannot exclude non-occlusive DVT in the calf due to sub-optimal visualization. Electronically Signed by: ELIANE MCKEON on 2017-08-07 06:06:04 PM VASCUBASE VB Text Report End of Report VASCUBASE 08/07/2017 2:33 PM EST Hollie Larose MD VASCULAR ORDERA BLES VASCUBASE documented in this encounter Visit Diagnoses Diagnosis Leg edema, left Edema documented in this encounter Care Teams Office Helper Clerical Relationship Specialty Start Date End Date Jerman Powell MD [address] [place] [address] PCP - General 05/30/11 05/30/21 documented as of this encounter
--- OUTSIDE RECORDS SUMMARY | 2024-03-21 14:01 | XMS_ITS | Encounter Summary ---
Author Organization [facility] [place] [address] Care Team Providers Care Card Lacer Name Role Phone Jerman Powell MD Primary Care Provider [phone] Reason for Visit * Reason Onset Date Comments Medication Refill 06/22/2011 Encounter Details Date Type Department Care Team (Late st Contact Info) Description 06/22/2011 Refill [place] [address] Jie Garay APRN [facility] [place] [address] Pain (Primary Dx) Social History Tobacco Use Types [...] as of this encounter Visit Diagnoses Diagnosis Pain- Primary Generalized pain documented in this encounter Care Teams Card Lacer Relationship Specialty Start Date End Date Jerman Powell MD [address] [place], [place] [address] PCP - General 05/30/11 05/30/21 documented as of this encounter
--- OUTSIDE RECORDS SUMMARY | 2024-03-21 14:01 | XMS_ITS | Encounter Summary ---
[place] [address] Care Team Providers Care Art Historian Name Role Phone Jerman Powell MD Primary Care Provider [phone] Reason for Visit * Reason Comments Follow-up Encounter Details Date Type Department Care Team (Late st Contact Info) Description 10/30/2012 3:45 PM EDT Office Visit Dermatology [address] [place] [address] [address] [place] [address] Fausto Luna MD [address] [place] [address] Dermatitis herpetiformis (Primary Dx) Social History Tobacco [...] Progress Notes * Fausto Luna MD - 10/30/2012 4:25 PM EDT Problems: 1. Followup of dermatitis herpetiformis. 2. On dapsone 100 mg q.a.m. 3. History of acne and seborrhea of scalp. Janna follows up and her itching is better, her skin is better, and her scalp is better. A recent INR on her Coumadin was a little bit low. This is surprising to both of us, as with antibiotics one would expect an increased anticoagulant effect. Physical examination reveals numerous seborrheic papules on her scalp, but they are healing and much improved. The active DH on the forearms is healing; there are new sites. Her back remains clear. The sites on her back and her feet have completely healed. Assessment and Plan: 1. Dermatitis herpetiformis/gluten enteropathy. a. Continue to avoid gluten. b. Continue dapsone 100 mg 1 p.o. q. day. c. Patient was recently found to be osteopenic, she states, so we recommend wintertime vitamin D supplementation 800 to 1000 units a day as well as calcium supplementation. 2. Acne and seborrhea of the scalp. a. Continue selenium sulfide 2.5% lotion, but on an intermittent basis. Also use clobetasol scalp solution intermittently. b. Discontinue minocycline course. Recommend return to clinic in December for repeat check; will likely go back to q. six month followups. Will keep in mind the option of [facility] as an inexpensive source for dapsone for her. COPY: Jerman Powell M.D. documented in this encounter Plan of Treatment Not on file documented as of this encounter Visit Diagnoses Diagnosis Dermatitis herpetiformis- Primary documented in this encounter Care Teams Art Historian Relationship Specialty Start Date End Date Jerman Powell MD [address] [place] [address] PCP - General 05/30/11 05/30/21 documented as of this encounter
--- OUTSIDE RECORDS SUMMARY | 2024-03-21 14:01 | XMS_ITS | Encounter Summary ---
Author Organization [facility] [place] [address] Care Team Providers Care Human Resources Intern Name Role Phone Jerman Powell MD Primary Care Provider [phone] Reason for Visit * Reason Comments Skin Check Encounter Details Date Type Department Care Team (Late st Contact Info) Description 05/16/2012 8:30 AM EDT Office Visit Dermatology [address] [place] [address] [address] [place] [address] Fausto Luna MD [address], [place] [address] Dermatitis herpetiformis (Primary Dx) Social History Tobacco [...] Progress Notes * Fausto Luna MD - 05/16/2012 9:08 AM EDT Dictated documented in this encounter Miscellaneous Notes * Miscellaneous - Don Nicolas - 05/21/2012 10:05 AM EDT documented in this encounter Plan of Treatment Not on file documented as of this encounter Visit Diagnoses Diagnosis Dermatitis herpetiformis- Primary documented in this encounter Care Teams Human Resources Intern Relationship Specialty Start Date End Date Jerman Powell MD [address] [facility] [address] [place] [address] PCP - General 05/30/11 05/30/21 documented as of this encounter
--- OUTSIDE RECORDS SUMMARY | 2024-03-21 14:01 | XMS_ITS | Encounter Summary ---
[place] [address] Care Team Providers Care Window Framer Name Role Phone Jerman Powell MD Primary Care Provider Encounter Details Date Type Department Care Team (Latest Contact Info) Description 03/27/2018 10:53 AM EDT - 03/27/2018 2:47 PM EDT Hospital En[place] [address] [place], [place] Intermittent claudication; PAD (peripheral artery disease) Discharge Disposition: Home Social History Tobacco Use [...] Diagnosis Comments RAFI, LEGS, MULTIPLE LEVELS Routine 03/27/2018 10:55 AM EDT Intermittent claudication PAD (peripheral artery disease) documented in this encounter Results * RAFI, legs, multiple levels (03/27/2018 10:55 AM EDT) VB Text Report Department: Vascular Surgery Lab Patient: [id number] (ENDER KURTZ) CPT: 05535 ICD10: I73.9 Referring Physician: AMANDA RAIN MD [...] unspecified documented in this encounter Care Teams Window Framer Relationship Specialty Start Date End Date Jerman Powell MD [address] [place] [address] PCP - General 05/30/11 05/30/21 documented as of this encounter
--- OUTSIDE RECORDS SUMMARY | 2024-03-21 14:01 | XMS_ITS | Encounter Summary ---
[place] [address] Care Team Providers Care Surveyor Helper Rod Name Role Phone Jerman Powell MD Primary Care Provider [phone] Encounter Details Date Type Department Care Team (Latest Contact Info) Description 01/23/2017 2:03 PM EDT - 01/23/2017 11:59 PM EDT Hospital Encounter [place] [address] [place], [place] Intermittent claudication Discharge Disposition: Home Social History [...] Misc 1 Units by Other route. 06/17/2009 HYDROcodone-acetaminoph en (NORCO) 10-325 mg Tablet Take [...] Diagnosis Comments RAFI, LEGS, MULTIPLE LEVELS Routine 01/23/2017 3:16 PM EDT Intermittent claudication documented in this encounter Results * RAFI, legs, multiple levels (01/23/2017 3:16 PM EDT) VB Text Report Department: Vascular Surgery Lab Patient: [id number] (ENDER KURTZ) CPT: 76533 ICD10: I70.212;I73.9;I70 .211 Referring Physician: ELIANE MCKEON ?? Indications: Patient with bilateral LE pain, PAD, ? change in RAFI Diabetes mellitus: Yes ICD10 Diagnosis Code: I73.9 Findings: Right ?Pressure (mm Hg) ?? RAFI ??Waveform ?? TBI ?? Brachial Artery ?145 ? Dorsalis Pedis (Ankle) Artery ?84 ?0.58 ??Biphasic ? Posterior Tibial (Ankle) Artery ??84 ?0.58 ??Biphasic ? Great Toe ?66 ?0.46 ?? Left ? Pressure (mm Hg) ?? RAFI ??Waveform ?TBI ?? Brachial Artery ?133 ? Dorsalis Pedis (Ankle) Artery ?69 ?0.48 ??[place]-Biphasic ? Posterior Tibial (Ankle) Artery ??78 ?0.54 ??[place]-Biphasic ? Great Toe ?55 ? 0.38 ?? Interpretation: RIGHT: Moderate lower extremity arterial occlusive disease. Significant deterioration compared to previous exam performed on 08/24/2009. LEFT: Moderate to moderately severe lower extremity arterial occlusive disease. Significant deterioration compared to previous exam performed on 08/24/2009. Previous ABIs with change from previous value: Date ?RIGHT DP ?? RIGHT PT ?? RT GR TOE ??LEFT DP ?LEFT PT ?LT GR TOE ??0.91 ? 0.92 ? ---- ? 0.85 ? 0.90 ? ---- Current ? 0.58(-.33) 0.58(-.34) 0.46 ? 0.48(-.37) 0.54(-.36) 0.38 Electronically Signed by: FRANKY [place] on 2017-01-23 11:27:40 PM V[facility] VB Text Report End of Report VASCUBASE 01/23/2017 3:16 PM EDT Eliane Mckeon MD VASCULAR ORDERABLES VASCUBASE documented in this encounter Visit Diagnoses Diagnosis Intermittent claudication Peripheral vascular disease, unspecified documented in this encounter Care Teams Surveyor Helper Rod Relationship Specialty Start Date End Date Jerman Powell MD [address] [place] [address] PCP - General 05/30/11 05/30/21 documented as of this encounter
--- OUTSIDE RECORDS SUMMARY | 2024-03-21 14:01 | XMS_ITS | Encounter Summary ---
[place] [address] Care Team Providers Care Reflesher Name Role Phone Destiney Canela MD Primary Care Provider [phone] Encounter Details Date Type Department Care Team (Late st Contact Info) Description 08/27/2012 3:00 PM EST Office [place] [phone] [place] Edema of left lower extremity (Primary Dx) [...] Comments DUPLEX FOR DVT, LEG, UNILAT Routine 08/27/2012 2:55 PM EST Edema of left lower extremity documented in this encounter Results * Duplex for DVT, Leg, Unilat (08/27/2012 2:55 PM EST) VB Text Report Department: Vascular Surgery Lab Patient: [id number] (ENDER KURTZ) CPT Code: 23750 ICD-9: 782.3 Referring Physician: DESTINEY CANELA Indication: ??Edema LEFT foot, H/O L CIV [...] Report VASCUBASE 08/27/2012 2:55 PM EST Destiney Canela MD VASCULAR ORDERABLES VASCUBASE documented in this encounter Visit Diagnoses Diagnosis Edema of left lower extremity- Primary Edema documented in this encounter Care Teams Reflesher Relationship Specialty Start Date End Date Destiney Canela MD [address] [place] [address] PCP - General 05/30/11 05/30/21 documented as of this encounter
--- OUTSIDE RECORDS SUMMARY | 2024-03-21 14:01 | XMS_ITS | Encounter Summary ---
Author Organization [facility] [place] [address] Care Team Providers Care Land Management Supervisor Name Role Phone Jerman Powell MD Primary Care Provider [phone] Reason for Visit * Reason Comments Deep Vein Thrombosis Encounter Details Date Type Department Care Team (Late st Contact Info) Description 02/18/2014 3:30 PM EDT Office [place] [address] Krystle Regan MD [facility] [place] [address] May-Thurner syndrome (Primary Dx) Discharge Disposition: Home Social History [...] Sign Reading Time Taken Comments Blood Pressure 140/70 02/18/2014 3:32 PM EDT Pulse 92 02/18/2014 3:32 PM EDT Temperature - - Respiratory Rate - - Oxygen Saturation - - Inhaled Oxygen Concentration - - Weight 76.2 kg (168 lb) 02/18/2014 3:32 PM EDT Height - - Body Mass Index 30.73 08/27/2012 3:32 PM EST documented in this encounter Patient Instructions * Patient Instructions* Krystle Regan MD - 02/18/2014 3:52 PM EDT Doing well follow iliac vein stent PRIVATE BRANCH EXCHANGE OPERATOR. Some improvement in symptoms. Continue coumadin. Followup with duplex in 6 months documented in this encounter Progress Notes * Krystle Regan MD - 02/18/2014 3:46 PM EDT Interval history: Returns in follow-up after a left iliac vein stent PRIVATE BRANCH EXCHANGE OPERATOR. States her symptoms are improved compared to prior to the procedure. She has been having trouble maintaining a therapeutic INR. No other changes Prior Vascular History: Balloon angioplasty and stenting of left common iliac vein stenosis (18 mm x 16 mm wall stent; PRIVATE BRANCH EXCHANGE OPERATOR with 14 mm balloon at 4 atmospheres). 10/01/09 Left iliac vein stent PRIVATE BRANCH EXCHANGE OPERATOR, 01/30/2014 Past Medical History Diagnosis Date ??? [...] in the calf due to sub-optimal visualization. No significant change from study done 11/12/2013. Assessment / Plan: Doing well follow iliac vein stent PRIVATE BRANCH EXCHANGE OPERATOR. Some improvement in symptoms. Continue coumadin. Followup with duplex in 6 months documented in this encounter Miscellaneous Notes * Addendum Note - Edna Combs RN - 02/18/2014 4:32 PM EDTAddended by: EDNA COMBS on: 02/18/2014 04:32 PM Modules accepted: Orders documented in this encounter Plan of Treatment Not on file documented as of this encounter Results * Duplex for DVT, Leg, Unilat (12/09/2014 1:47 PM EDT) VB Text Report Department: Vascular Surgery Lab Patient: [id number] (ENDER KURTZ) CPT Code: 65298 ICD-9: 451.19 Referring Physician: KRYSTLE REGAN Indication: [...] in this encounter Visit Diagnoses Diagnosis May-Thurner syndrome- Primary Compression of vein documented in this encounter Care Teams Land Management Supervisor Relationship Specialty Start Date End Date Jerman Powell MD [address] [place] [address] PCP - General 05/30/11 05/30/21 documented as of this encounter
--- OUTSIDE RECORDS SUMMARY | 2024-03-21 14:01 | XMS_ITS | Encounter Summary ---
Author Organization [place] [address] Care Team Providers Care Customs Brokerage Agent Name Role Phone Jerman Powell MD Primary Care Provider [phone] Encounter Details Date Type Department Care Team (Latest Contact Info) Description 01/09/2017 2:15 PM EDT - 01/09/2017 11:59 PM EDT Hospital En[place] [address] Theo Aguilar, RVT Vein compression Discharge Disposition: Home Social History Tobacco Use [...] Comments DUPLEX FOR DVT, LEG, UNILAT Routine 01/09/2017 2:25 PM EDT Vein compression documented in this encounter Results * Duplex for DVT, Leg, Unilat (01/09/2017 2:25 PM EDT) VB Text Report Department: Vascular Surgery Lab Patient: [id number] (ENDER KURTZ) CPT: 62852 ICD10: I87.1 Referring Physician: JUAN WATTS ?? Indications: ??LEFT iliac vein stent, ? patency/DVT ICD10 Diagnosis Code: I87.1 LEFT: There is non-occlusive thrombus in one [...] normal respirophasic Doppler flow signals. Interpretation: LEFT: Chronic non-occlusive thrombus in one of the paired femoral veins from the prox through distal thigh into the popliteal vein with no identifiable change compared to previous exam done 12/09/2014. Patent external iliac vein with normal respirophasic Doppler waveforms. Cannot exclude non-occlusive DVT in the calf due to sub-optimal visualization. Electronically Signed by: ELIANE MCKEON on 2017-01-09 04:26:58 PM VASCU[facility] VB Text Report End of Report VASCUBASE 01/09/2017 2:25 PM EDT Juan Watts MD VASCULAR ORDERABLES VASCU[facility] documented in this encounter Visit Diagnoses Diagnosis Vein compression Compression of vein documented in this encounter Care Teams Customs Brokerage Agent Relationship Specialty Start Date End Date Jerman Powell MD [address] [place] [address] PCP - General 05/30/11 05/30/21 documented as of this encounter
--- OUTSIDE RECORDS SUMMARY | 2024-03-21 14:01 | XMS_ITS | Encounter Summary ---
Author Organization Formerly [facility], [facility] Address [facility] [place] [address] Care Team Providers Care Veterinary Epidemiologist Name Role Phone Jerman Powell MD Primary Care Provider [phone] Reason for Visit * Reason Comments Follow-up Encounter Details Date Type Department Care Team (Late st Contact Info) Description 11/12/2013 11:30 AM EDT Follow-[place] [address] Pelon Regan MD [facility] [place] [address] Chronic venous embolism and thrombosis of unspecified deep vessels of lower extremity (Primary Dx) Discharge Disposition: Home Social History [...] Sign Reading Time Taken Comments Blood Pressure 127/64 11/12/2013 11:48 AM EDT Pulse 103 11/12/2013 11:48 AM EDT Temperature - - Respiratory Rate 20 11/12/2013 11:48 AM EDT Oxygen Saturation - - Inhaled Oxygen Concentration - - Weight - - Height - - Body Mass Index - - documented in this encounter Progress Notes * Kayley Ayala MD - 11/12/2013 12:26 PM EDT Vascular Surgery Clinic Note Chief complaint: May-Thurner Syndrome HPI: Janna Junior is a 57 y.o. female who presents for follow-up of her left leg DVT, iliac vein stent placement. She reports a subjective increase in left lower extremity swelling and burning pain when standing for long periods. She does continue to wear knee high compression stockings and would prefer thigh high stockings but they wore out and she has not been able to afford a new pair. She has remained on the coumadin and her last INR was 3.0 yesterday. PMH: Past Medical History Diagnosis Date ??? May-Thurner syndrome PSH: Past Surgical History Procedure Date ??? Created by interface LAPAROSCOPIC CHOLECYSTECTOMY Procedure Date: 03/18/1992 Medications: Current outpatient prescriptions:amitriptyline (ELAVIL) 10 mg tablet, Take 10 mg by mouth nightly., Disp: , Rfl: ; MAGNESIUM ORAL, Take by mouth., Disp: , Rfl: ; Diclofenac Epolamine 1.3% PtMd, Apply 180 mg topically 2 times daily., Disp: 20 patch, Rfl: 1; dapsone (ACZONE) 25 mg tablet, Take 2 tablets by mouth 2 times daily., Disp: 120 tablet, Rfl: 5; warfarin (COUMADIN) 10 mg tablet, Take 5 mg by mouth daily., Disp: , Rfl: gabapentin (NEURONTIN) 300 mg capsule, Take 300 mg by mouth daily., Disp: , Rfl: ; hydroCODone-acetaminophen (NORCO) 7.5-325 mg per tablet, 1 Tablet(s), PO, Q4- 6H PRN, Disp: , Rfl: ; omeprazole (PRILOSEC) 20 mg capsule, Take 20 mg by mouth nightly., Disp: , Rfl: Family history: No family history on file. Social history: History Social History ??? Marital Status: Spouse Name: N/A Number of Children: N/A ??? Years of Education: N/A 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 History ??? Not on file. Social History Main Topics ??? Smoking status: Current Every Day Smoker -- 0.5 packs/day ??? Smokeless tobacco: Not on file ??? Alcohol Use: No ??? Drug Use: No ??? Sexually Active: Not on file Other Topics Concern ??? Not on file Social History Narrative ??? No narrative on file Vitals: Filed Vitals: 11/12/13 1148 BP: 127/64 Pulse: 103 Resp: 20 Physical Exam: Gen: NAD Neuro: A&O x 3 Abd: soft, NTND Vasc: 2+ DP bilaterally, unable to palpate a PT on either side Vascular studies: Interpretation: LEFT: There is non-occlusive deep vein thrombus in one of the paired femoral veins from the mid through distal thigh into the popliteal vein. Cannot exclude non-occlusive DVT in the calf due to suboptimal visualization. Progression in one of the femoral veins in the thigh with no identifiable change in the popliteal vein compared to the previous exam done on 08/27/2012. Assessment: Ms. Junior is a 57 F who presents in follow-up for May-Thurner syndrome that was treated with iliac stent placement. Her duplex today demonstrates progression of DVT despite therapeuticanticoagulation. She was counseled on the importance of smoking cessation and its role in hypercoagu lability. Plan: In light of the DVT progression and her subjective increase in symptoms a venogram is warranted to fully evaluate the iliac stent. This will be scheduled at her convenience within the month. Attending Addendum: I have seen and evaluated this patient and I agree with the findings assessmentand plan documented above documented in this encounter Plan of Treatment Not on file documented as of this encounter Visit Diagnoses Diagnosis Chronic venous embolism and thrombosis of unspecified deep vessels of lower extremity- Primary documented in this encounter Care Teams Veterinary Epidemiologist Relationship Specialty Start Date End Date Jerman Powell MD [address] [facility] [address] [place] [address] PCP - General 05/30/11 05/30/21 documented as of this encounter
--- OUTSIDE RECORDS SUMMARY | 2024-03-21 14:01 | XMS_ITS | Encounter Summary ---
[place] [address] Care Team Providers Care Configuration Management Consultant Name Role Phone Jerman Powell MD Primary Care Provider [phone] Encounter Details Date Type Department Care Team (Late st Contact Info) Description 01/08/2017 Orders Only Vascular [place] [id number] Mason Gonzalez RN Vein compression Social History Tobacco Use Types Packs/Day Years [...] Text Report Department: Vascular Surgery Lab Patient: [id number] (ENDER KURTZ) CPT: 47818 ICD10: I87.1 Referring Physician: JUAN WATTS ?? [...] vein documented in this encounter Care Teams Configuration Management Consultant Relationship Specialty Start Date End Date Jerman Powell MD [address] [place] [address] PCP - General 05/30/11 05/30/21 documented as of this encounter
--- OUTSIDE RECORDS SUMMARY | 2024-03-21 14:01 | XMS_ITS | Encounter Summary ---
[place] [address] Care Team Providers Care Venetian Blind Washer Name Role Phone Jerman Powell MD Primary Care Provider [phone] Reason for Referral * Physical Therapy (Routine) - Specialty Diagnoses / Procedures Referred By Contac t Referred To Contact Physical Therapy Diagnoses PAD (peripheral artery disease) Intermittent claudication Rachel Braun PA [address] [facility] [place] [address] Referral ID Status Reason Start Date Expiration Date V isits Requested Visits Authorized [id number] Evaluate and Treat 08/08/2017 02/04/2018 12 12 Reason for Visit * Reason Comments Follow-up My left leg is more swollen Encounter Details Date Type Department Care Team (Late st Contact Info) Description 08/07/2017 1:00 PM EST Office [place] [address] Rachel Braun PA [address] [facility] [place] [address] Leg edema, left; PAD (peripheral artery disease); Intermittent claudication Social [...] Sign Reading Time Taken Comments Blood Pressure 138/51 08/07/2017 1:14 PM EST Pulse 103 08/07/2017 1:14 PM EST Temperature - - Respiratory Rate - - Oxygen Saturation - - Inhaled Oxygen Concentration - - Weight 68.9 kg (152 lb) 08/07/2017 1:14 PM EST Height 157.5 cm (5' 2) 08/07/2017 1:14 PM EST Body Mass Index 27.8 08/07/2017 1:14 PM EST documented in this encounter Patient Instructions * Patient Instructions* Rachel Braun PA - 08/07/2017 1:00 PM EST Ms. Kurtz had no evidence of new DVT on her duplex. It is likely that her left leg chronic edemahas progressed recently because of her inability to utilize her regular compression and her inconsistency with leg elevation. I have recommended a double layer of Tubigrip F for now which she should use along with periodic leg elevation (30-45 min, 4-5 times per day) until she is able to apply her compression stockings again. I can see her again in 1 month to reevaluate. At that time we will also repeat her ABIs which are due for follow up. If she has any new concerns that arise in the interim she will contact us. I have encouraged smoking cessation and a regular walking regimen again for her arterial disease. She requested a renewal for her PT script so that she can return to her exercise program that was working well for her there previously. Please do not hesitate to call with questions/concerns. documented in this encounter Progress Notes * Rachel Braun PA - 08/07/2017 1:00 PM EST This patient returned to the vascular clinic today for a follow up visit for her leg swelling. Ms. Kurtz's called for a follow-up visit because they are concerned that there has been an increase in swelling in her left leg/foot. She reports this has been increasing for several weeksand she is concerned because of her history of DVT and recent subtherapeutic INRs. She admits that she missed her last recommended follow up because she had been ill with some nausea/vomiting episodes that lasted for over a month. She went through an extensive work up with her PCP and was unable to ascertain the cause of her illness. However, she is now eating well again. During that timeframe her INR had dropped to 1.8 and she subsequently started to notice an increase in left leg swelling. Now, her INR is therapeutic again but the leg remains swollen. She is unable to wear her compressionstocking because it does not fit. She still feels a spongy feeling on the bottom of her left foot that makes it feel as though she is walking on a memory foam pad. She continues to stand for extended periods of time at work and after doing so she admits to increased aching pain in her left leg. Her previous concern for an atheroembolic event to her right great toe has resolved and the area isno longer discolored or painful. However, she continues to experience lower leg claudication. She was doing PT/pool therapy after our last visit and was up to walking for about 25 minutes on a treadmill before she would stop to take a break. When she became ill she stopped therapy and would like a new script to continue this as her legs seemed better with the additional exercise. She denies symptoms consistent with arterial rest pain. She does continue to smoke and still has no interest at this time in quitting smoking. 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 Smoking status: Current Every Day Smoker Packs/day: 0.50 ??? Smokeless tobacco: Never Used ??? Alcohol use No Medications: Medications 08/07/17 6109 Medication Sig Taking? Miscellaneous Medical Supply [facility] [place] Units. Yes methylPREDNISolone (MEDROL DOSPACK) 4 mg Tablets, Dose Pack Take 4 mg by mouth. amitriptyline (ELAVIL) 10 mg Tablet Take 10 mg by mouth. dapsone 100 mg Tablet Take 75 mg by mouth. gabapentin (NEURONTIN) 100 mg Capsule Take 100 mg by mouth. gabapentin (NEURONTIN) 300 mg Capsule Take 300 mg by mouth. warfarin (COUMADIN) 5 mg Tablet Take 5 mg by mouth. warfarin (COUMADIN) 7.5 mg Tablet Take 7.5 mg by mouth. [employer] ULTRA TEST Strip TEST TWO TIMES A DAY chlorhexidine (PERIDEX) 0.12 % Mouthwash diphenoxylate-atropine (LOMOTIL) 2.5-0.025 mg Tablet doxycycline (VIBRAMYCIN) 100 mg Capsule gabapentin (NEURONTIN) 600 mg Tablet ONE TOUCH DELICA 33 gauge Misc TEST TWO TIMES A DAY loperamide (IMODIUM) 2 mg Capsule magnesium oxide (MAG-OX) 400 mg Tablet TAKE ONE TABLET BY MOUTH THREE TIMES A DAY nystatin (MYCOSTATIN) 100,000 unit/mL Suspension predniSONE (DELTASONE) 20 mg Tablet triamcinolone (KENALOG) 0.1 % Lotion HYDROcodone-acetaminophen (NORCO) [...] negative Physical Exam: Vitals: Most Recent Vitals: 08/07/17 1314 BP: 138/51 Pulse: 103 PainSc: 5 Gen: No acute distress. Extremities: 1+ brawny edema left lower leg only mild hyperpigmentation, no tissue loss bilateral legs/feet. Stable gait. Right great toe warm and pink - no further evidence of atheroembolism. Vascular Exam: R L DP 1/2 0/2 PT 0/2 0/2 Psych: AAOx3 Labs/Studies: Left leg venous duplex: 08/07/17 LEFT: Chronic non-occlusive thrombus??in one of the paired femoral veins from the prox through distal thigh into the popliteal vein with no identifiable change compared to previous exam done 01/09/2017. Cannot exclude non-occlusive DVT in the calf due to sub-optimal visualization. Impression: Chronic left leg DVT (unchanged from prior exam, no acute DVT) with chronic left leg edema PAD with intermittent claudication History May thurner syndrome and lifelong anticoagulation Ongoing tobacco abuse Recommendations: Ms. Kurtz had no evidence of new DVT on her duplex. It is likely that her left leg chronic edema has progressed recently because of her inability to utilize her regular compression and her inconsistency with leg elevation. I have recommended a double layer of Tubigrip F for now which she should use along with periodic leg elevation (30-45 min, 4-5 times per day) until she is able to apply her compression stockings again. I can see her again in 1 month to reevaluate. At that time we will also repeat her ABIs which are due for follow up. If she has any new concerns that arise in the interim she will contact us. I have encouraged smoking cessation and a regular walking regimen again for her arterial disease. She requested a renewal for her PT script so that she can return to her exercise program that was working well for her there previously. Please do not hesitate to call with questions/concerns. documented in this encounter Plan of Treatment Scheduled Referrals Name Type Priority Associated Diagnoses Orde r Schedule Referral to Physical Therapy Outpatient Referral Routine PAD (peripheral artery disease) Intermittent claudication Ordered: 08/08/2017 documented as of this encounter Results * RAFI, legs, multiple levels (12/18/2017 9:34 AM EDT) VB Text Report Department: Vascular Surgery Lab Patient: [id number] (ENDER KURTZ) CPT: 34028 ICD10: I73.9;I70.213 Referring Physician: HOLLIE DOBBINS ?? Phone: Indications: Bilateral LE claudication, PVD, [...] 0.73(+.10) 0.42(+.10) ---- Electronically Signed by: HOLLIE DOBBINS on 2017-12-20 03:53:49 PM VASCUBASE VB Text Report End of Report VASCUBASE 12/18/2017 9:34 AM EDT Hollie Dobbins MD VASCULAR ORDERA BLES VASCU[facility] * Duplex for DVT, Leg, Unilat (08/07/2017 2:33 PM EST) VB Text Report Department: Vascular Surgery Lab Patient: [id number] (ENDER KURTZ) CPT: 91465 ICD10: I82.512;R60.0 Referring Physician: HOLLIE DOBBINS ?? Phone: Indications: ??LEFT iliac vein stent, [...] Report VASCUBASE 08/07/2017 2:33 PM EST Hollie Dobbins MD VASCULAR ORDERA BANNERS VASCU[facility] documented in this encounter Visit Diagnoses Diagnosis Leg edema, left Edema PAD (peripheral artery disease) Peripheral vascular disease, unspecified Intermittent claudication Peripheral vascular disease, unspecified documented in this encounter Care Teams Venetian Blind Washer Relationship Specialty Start Date End Date Jerman Powell MD [address] [place] [address] PCP - General 05/30/11 05/30/21 documented as of this encounter
--- OUTSIDE RECORDS SUMMARY | 2024-03-21 14:01 | XMS_ITS | Encounter Summary ---
Author [facility] [place] [address] Care Team Providers Care Oracle Obiee Developer Name Role Phone Jerman Powell MD Primary Care Provider [phone] Reason for Visit * Reason Comments Medication Refill Encounter Details Date Type Department Care Team (Late st Contact Info) Description 04/19/2013 Refill Dermatology [address] [place], [place] [address] Fausto Luna MD [address], [place] [address] Social History Tobacco Use Types Packs/Day Years [...] on filedocumented in this encounter Care Teams Oracle Obiee Developer Relationship Specialty Start Date End Date Jerman Powell MD [address] [place], [place] [address] PCP - General 05/30/11 05/30/21 documented as of this encounter
--- OUTSIDE RECORDS SUMMARY | 2024-03-21 14:01 | XMS_ITS | Encounter Summary ---
Author Organization [facility] [place] [address] Care Team Providers Care Manager Program Name Role Phone Jerman Powell MD Primary Care Provider Encounter Details Date Type Department Care Team (Latest Contact Info) Description 08/29/2016 - 08/29/2016 11:59 PM EST Hospital Encounter [place] [address] Pelon Regan MD [address] [place] [address] Pain Discharge Disposition: Home Social History Tobacco Use [...] Misc 1 Units by Other route. 06/17/2009 metFORMIN (GLUCOPHAGE) 1,000 mg tablet Take 1,000 [...] Associated Diagnosis Comments FILM LIBRARY STORAGE ONLY DX FOOT Routine 08/29/2016 12:00 AM EST Pain documented in this encounter Results * Film Library- Storage Only DX Foot (08/29/2016 12:00 AM EST) Narrative [facility] - 03/21/2017 9:41 AM EDT This exam is for storage only and is auto-finalizing. Pelon Regan MD IMG FILM LIBRARY ORD ERABLES [place], [place] documented in this encounter Visit Diagnoses Diagnosis Pain Generalized pain documented in this encounter Care Teams Manager Program Relationship Specialty Start Date End Date Jerman Powell MD [address] [place] [address] PCP - General 05/30/11 05/30/21 documented as of this encounter
--- OUTSIDE RECORDS SUMMARY | 2024-03-21 14:01 | XMS_ITS | Encounter Summary ---
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 Kurtz may have a component of PAD which is causing claudication and I have ordered an RAFI assessment to evaluate this completely. That would account for her calf pain with walking but I do notbelieve she is truly having arterial rest pain and the leg cramps which develop throughout her legsmay still be related to her magnesium levels. I have asked her to follow up with her PCP for lab work to reevaluate this. Otherwise, her ongoing left leg skin changes are related to poorly controlled chronic edema. She had no evidence of new DVT on her venous duplex today and her left iliac stent was patent. Therefore, the changes are likely related to venous insufficiency and will benefit from more compliance with elevation and compression. However, because of her complaints of worsening pain with compression use and her abnormal pulse exam we will evaluate her RAFI before encouraging further compression hose. In the interim, I provided a single layer of Tubigrip F for compression on the left leg which will be mechanics handyman than a stocking and likely better tolerated. I stressed the importance of smoking cessation today but she is not interested in quitting at this time. In addition, she is anticoagulated with Coumadin for her hypercoagulability/DVT history but isnot taking aspirin or a statin. I have also encouraged her to consider these therapies with her PCP. Please do not hesitate to call with questions/concerns. 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 Ms. Kurtz was initially evaluated in Aug 2009 for left leg pain, swelling, varicose veins, and discoloration which had been gradually progressing for several years. She had a history of DVT and Protein C deficiency and at that point was already anticoagulated with Coumadin chronically. She was evaluated by our practice after already attempting to manage her symptoms with compression stockings and lymphedema therapy. 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 She underwent left iliac vein stent placement on 10/01/09. Then in January 2014 she returned for angioplasty of a stenosis identified within the previously placed stent. Since that time she has had routine follow- up with serial duplex imaging. Today she returned for follow up and continues to complain of left leg below knee swelling which isnow associated with hardening and reddish discoloration of the skin. She has not been using compression hose because she complains that she has been having severe leg cramps and her left leg seemed to cramp more when wearing the compression. Recently she was diagnosed with a very low magnesium level but she has been working with her PCP on magnesium replacement. She has not had a follow up mag level recently but reports that her generalized muscle cramps have improved. In addition, she has been experiencing calf claudication which affects both legs but may be slightly worse on the left. This occurs after walking only about 50 yards and does improve with rest. She denies tissue loss and has not had prior RAFI testing. She does continue to smoke and has no interest at this time in quitting smoking. She is anticoagulated with Coumadin but does not take aspirin or astatin. PMHx: Patient Active Problem List Diagnosis Date Noted ??? Intermittent claudication 01/09/2017 ??? 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 Smoking status: Current Every Day Smoker Packs/day: 0.50 ??? Smokeless tobacco: Not on file ??? Alcohol use No Medications: Medications 01/09/17 2140 Medication Sig Taking? HYDROcodone-acetaminophen (NORCO) 10-325 mg [...] tablets by mouth 2 times daily. Yes warfarin (COUMADIN) 10 mg tablet Take 5 mg by mouth daily. Yes omeprazole (PRILOSEC) 20 mg capsule [...] other ROS negative Physical Exam: Vitals: Vitals: 01/09/17 1511 BP: 119/47 Pulse: 97 Resp: 18 Gen: No acute distress. HEENT: Normocephalic, atraumatic. No scleral icterus. Neck: Supple, no JVD. Heart: Regular rate and rhythm. Lungs: Regular respiratory rate with no increased work of breathing. Abd: Soft, nontender, not distended. Extremities: 1+ brawny edema left lower leg only with lipodermatosclerosis and light red hyperpigmentation No ulcerations bilateral feet Vascular Exam: R L Radial 2/2 2/2 Femoral 1/2 1/2 Popliteal 0/2 0/2 DP 1/2 0/2 PT 0/2 0/2 Psych: AAOx3 Labs/Studies: Left leg venous duplex: 01/09/17 Interpretation: LEFT: Chronic non-occlusive thrombus in one of the paired femoral veins from the prox through distal thigh into the popliteal vein with no identifiable change compared to previous exam done 12/09/2014. Patent external iliac vein with normal respirophasic Doppler waveforms. Cannot exclude non-occlusive DVT in the calf due to sub-optimal visualization. Impression: May thurner syndrome with chronic left leg DVT, venous insufficiency with stasis changes and lifelong anticoagulation Intermittent claudication with abnormal pulse exam Ongoing tobacco abuse Recommendations: Ms. Kurtz may have a component of PAD which is causing claudication and I have ordered an RAFI assessment to evaluate this completely. That would account for her calf pain with walking but I do not believe she is truly having arterial rest pain and the leg cramps which develop throughout her legs may still be related to her magnesium levels. I have asked her to follow up with her PCP for lab work to reevaluate this. Otherwise, her ongoing left leg skin changes are related to poorly controlled chronic edema. She had no evidence of new DVT on her venous duplex today and her left iliac stent was patent. Therefore, the changes are likely related to venous insufficiency and will benefit from more compliance with elevation and compression. However, because of her complaints of worsening pain with compression use and her abnormal pulse exam we will evaluate her RAFI before encouraging further compression hose. In the interim, I provided a single layer of Tubigrip F for compression on the left leg which will be mechanics handyman than a stocking and likely better tolerated. I stressed the importance of smoking cessation today but she is not interested in quitting at this time. In addition, she is anticoagulated with Coumadin for her hypercoagulability/DVT history but isnot taking aspirin or a statin. I have also encouraged her to consider these therapies with her PCP. I will schedule follow up for her venous stent after her RAFI evaluation. Please do not hesitate to call with questions/concerns. I spent >50% of a 25 minute visit discussing test results and reviewing the above plan of care /recommendations. documented in this encounter Plan of Treatment Not on file documented as of this encounter Results * RAFI, legs, multiple levels (01/23/2017 3:16 PM EDT) Pathologist [facility] VB Text Report Department: Vascular Surgery Lab Patient: [id number] (ENDER KURTZ) CPT: 73502 ICD10: I70.212;I73.9;I70 .211 Referring Physician: ELIANE MCKEON [...] ? Dorsalis Pedis (Ankle) Artery ?69 ?0.48 ??Jersey-Biphasic ? Posterior Tibial (Ankle) Artery ??78 ?0.54 ??Jersey-Biphasic ? Great Toe ?55 ? 0.38 ?? [...] Diagnosis Intermittent claudication Peripheral vascular disease, unspecified Chronic venous insufficiency Unspecified venous (peripheral) insufficiency Chronic deep vein thrombosis of left femoral vein Chronic venous embolism and thrombosis of deep vessels of proximal lower extremity May-Thurner syndrome Compression of vein Tobacco dependence Tobacco use disorder documented in this encounter Care Teams Land Agent Relationship Specialty Start Date End Date Jerman Powell MD [address] [place] [address] PCP - General 05/30/11 05/30/21 documented as of this encounter
--- OUTSIDE RECORDS SUMMARY | 2024-03-21 14:01 | XMS_ITS | Encounter Summary ---
[place] [address] Care Team Providers Care Business Process Modeler Name Role Phone Jerman Powell MD Primary Care Provider [phone] Encounter Details Date Type Department Care Team (Late st Contact Info) Description 03/26/2018 Orders [place] [id number] Wendy Mejia Social History Tobacco Use Types Packs/Day Years [...] on filedocumented in this encounter Care Teams Business Process Modeler Relationship Specialty Start Date End Date Jerman Powell MD [address] [place] [id number] PCP - General 05/30/11 05/30/21 documented as of this encounter
--- OUTSIDE RECORDS SUMMARY | 2024-03-21 14:01 | XMS_ITS | Encounter Summary ---
[place] [address] Care Team Providers Care Candy Vendor Name Role Phone Jerman Powell MD Primary Care Provider [phone] Reason for Visit * Reason Onset Date Comments Other 02/12/2017 Recall Encounter Details Date Type Department Care Team (Late st Contact Info) Description 02/12/2017 Telephone [place] [phone] Elinor Seaman Other (Recall) Social History Tobacco [...] * Telephone Encounter - Elinor Bustamante - 02/12/2017 2:41 PM EDT 1 mo f/u w/AG- PAD with claudication (ABIs). LVM on home # on 01/25/17. [facility] Left msg w/spouse on 02/02/17. [facility] Mailed reminder letter and removed recall on 02/12/17. [facility] documented in this encounter Plan of Treatment Not on file documented as of this encounter Visit Diagnoses Not on filedocumented in this encounter Care Teams Candy Vendor Relationship Specialty Start Date End Date Jerman Powell MD [address] [place] [address] PCP - General 05/30/11 05/30/21 documented as of this encounter
--- OUTSIDE RECORDS SUMMARY | 2024-03-21 14:01 | XMS_ITS | Encounter Summary ---
Author Organization [facility] [place] [address] Care Team Providers Care Lan Manager Name Role Phone Renzo Castano APRN Primary Care Provider [phone] Encounter Details Date Type Department Care Team (Late st Contact Info) Description 04/25/2006 Orders Only Dermatology at [address] [address] Fausto Luna MD [address], [address] DERMATOLOGY [place], [place] [id number] Social History Tobacco Use Types Packs/Day Years Used Date Smoking Tobacco: Never Assessed DH IPV Inpatient Questions Answer Date Recorded [...] Procedure Name Priority Date/Time Associated Diagnosis Comments SURGICAL PATHOLOGY REPORT Routine 04/25/2006 7:28 PM EDT documented in this encounter Results * Surgical Pathology Report (04/25/2006 7:28 PM EDT) Surgical Pathology Report [id number] ? Location: The signing pathologist has (i) examined the relevant preparation(s) for the specimen(s) and (ii) rendered or confirmed the diagnosis(es). . ?Pathology Surgical Pathology Final Report Clinical Information Specimen Submitted: A - Lt cheek: ??punch 4 mm. Clinical History: Pruritic papules x one month in generalized distribution. ??DIF pending. 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 Gross Description Labeled/Fixative: ? L cheek, formalin. Qty/Size/Weight: ?Single punch, 0.4 cm, rubbery, gamble-white skin excised ?to a depth of 0.4 cm. Sections/Processing: ??Bisected. ??(T1) ??[facility] Microscopic Description Slides reviewed, microscopic description not recorded. Diagnosis Skin, left cheek, 4-mm punch biopsy: ?? Subepidermal vesicle formation with a superficial perivascular mixed inflammatory cell infiltrate including lymphocytes and numerous eosinophils, with exocytosis of neutrophils into the vesicle (see Comment). CR-0 04/27/06 AJE 04/30/06 Verified by: ? Saniya Cai MD ?Dermatopathologist ?(Electronic Signature) The attending pathologist whose signature appears on this report has reviewed all diagnostic slides and has edited the gross and/or microscopic portion of the report in rendering the final pathologic diagnosis. Comment There are a few neutrophils in the tips of the dermal papillae adjacent to the vesicle, forming a microabscesses in one dermal papilla. The differential diagnosis for the histologic findings, including numerous eosinophils, in this biopsy would include bullous pemphigoid as well as Linear IgA disease and dermatitis herpetiformis. Linear IgA disease and dermatitis herpetiformis may have identical histologic features. It is noted that tissue has been submitted for immunoflourescence studies. MAR REAVES 04/25/2006 7:28 PM EDT Fausto Luna MD PATHOLOGY/CYTOLOGY O RDERABLES MAR REAVES documented in this encounter Visit Diagnoses Not on filedocumented in this encounter Additional Health Concerns Infection Onset Date Last Indicated Resolved Time Rule Out Respiratory 05/22/2023 05/22/2023 023 12:10 PM EDT documented as of this encounter Care Teams Lan Manager Relationship Specialty Start Date End Date Renzo Castano APRN [address] [place] [address] PCP - General Family Medicine 05/31/21 documented as of this encounter
--- OUTSIDE RECORDS SUMMARY | 2024-03-21 14:01 | XMS_ITS | Encounter Summary ---
Author Organization [facility] [place] [address] Care Team Providers Care Laborer Orchard Name Role Phone Jerman Powell MD Primary Care Provider [phone] Reason for Visit * Reason Comments Follow-up Encounter Details Date Type Department Care Team (Late st Contact Info) Description 11/28/2011 9:45 AM EDT Office Visit Dermatology [address] [place] [address] [address] [place] [address] Fausto Luna MD [address] [place] [address] Dermatitis herpetiformis (Primary Dx); Neurodermatitis Social History [...] Progress Notes * Fausto Luna MD - 11/28/2011 10:11 AM EDT Problem: 1. Followup dermatitis herpetiformis. 2. On Dapsone 100 mg a day. 3. Acne excoriee. Janna follows up today with her daughter, Krissy. She has been doing well, but her scalp has been itching more. She has gotten away from using the selenium sulfide and the Synalar solution for her scalp. Physical examination reveals excoriated papules present diffusely over the central parietal scalp. She has no active DH today on examination of the elbows and forearms. Assessment and Plan: 1. Dermatitis herpetiformis/gluten enteropathy. a. Continue to avoid gluten dietarily. The patient is sure that gluten-containing shampoos make her scalp itch more. b. Continue Dapsone 50 mg one p.o. b.i.d. #60 dispensed with five refills. c. Today check CBC. 2. Acne excoriee of scalp. a. Resume selenium sulfide 2.5% lotion using as a shampoo once a day until itching controlled and then once weekly 120 mL dispensed with p.r.n. refills. b. Prescription given for clobetasol scalp solution, which she can apply on an everyday basis p.r.n. for itching on the scalp 50 mL dispensed with p.r.n. refills. Return to clinic in six months for repeat check. documented in this encounter Plan of Treatment Not on file documented as of this encounter Visit Diagnoses Diagnosis Dermatitis herpetiformis- Primary Neurodermatitis Lichenification and lichen simplex chronicus documented in this encounter Care Teams Laborer Orchard Relationship Specialty Start Date End Date Jerman Powell MD [address] [place] [address] PCP - General 05/30/11 05/30/21 documented as of this encounter
--- OUTSIDE RECORDS SUMMARY | 2024-03-21 14:01 | XMS_ITS | Encounter Summary ---
Author [facility] [place] [address] Care Team Providers Care Mash Processing Operator Name Role Phone Jerman Powell MD Primary Care Provider [phone] Reason for Visit * Reason Comments Left Knee Pain Encounter Details Date Type Department Care Team (Late st Contact Info) Description 06/22/2011 10:10 AM EDT Office [place] [address] Jie Garay APRN [facility] [address] ORTHOPAED[place] [address] Osteoarthritis, knee (Primary Dx) Discharge Disposition: Home Social History [...] Sign Reading Time Taken Comments Blood Pressure 128/72 06/22/2011 10:33 AM EDT Pulse - - Temperature - - Respiratory Rate - - Oxygen Saturation - - Inhaled Oxygen Concentration - - Weight 87.1 kg (192 lb) 06/22/2011 10:33 AM EDT Height 157.5 cm (5' 2) 06/22/2011 10:33 AM EDT Body Mass Index 35.12 06/22/2011 10:33 AM EDT documented in this encounter Progress Notes * Jie Garay APRN - 06/22/2011 11:38 AM EDT DATE OF SERVICE: 06/22/2011 PERTINENT SURGICAL HISTORY: None. CHIEF COMPLAINT: Left knee pain. The patient reports back today to have a repeat Synvisc injection. This was last done on 09/15/2010. HISTORY OF PRESENT ILLNESS: Janna Junior has been seen in the past here in the ortho clinic, the last time was 08/2010. She had suffered through trabecular fracture and bone bruising, this all eventually healed, but she still left with moderate knee arthritis and she had very good results from her Synvisc injection done last 08/2010. She would like to repeat that. Just recently, she fell also flaring up her contralateral right knee. Apparently, remotely Dr. Graf had given her a diclofenac patch. She has used it in the past on her left knee. She wanted to know if we could refill that, so she could put on her right today. I let her know yes that is fine and we will have the triage nurses call it in for her. Her more sore left knee that we are injecting today hurts mainly medially. It clicks and swells only mildly. It does not lock nor give away. Unfortunately, she is on Coumadin, so she cannot take antiinflammatories, thus she presents. OBSERVED: Janna Junior reports to clinic, a little stiff. She is moving slowly. She is accompanied by her daughter today as well as her mother. They are very supportive of her. The patient is 5 feet 2 inches and 192 pounds. BMI of 1.95 square meters. Vital signs are stable today. She appears to be fairly deconditioned. She has no dyspnea on exertion, however. She had a cane when she walked down and she does use that her gait again is a little antalgic favoring both knees. Examining the left knee, I will drop a knee grid for that, but she has no effusion and no heat. She is tender over the medial joint line and nontender over lateral. The patella is poorly mobile and she has moderate patellar crepitance with motion. X-RAY: None today. ASSESSMENT: Seeking left knee steroid injection for moderate knee osteoarthritis. I have made the following determinations: Knee Exam: Left Prior surgery on this joint: No Gait Abnormality: Antalgic Knee ROM: Extension:0 Flexion: 120 Alignment: 0-4 degrees Neutral Stability: A/P Translation <5mm Varus <5mm Valgus <5mm Extension La degrees or less Radiographic evidence of joint damage: [0= normal; 1=minimal ; 2= some osteophytes , some narrowing ; 3= moderate osteophytes, significantnarrowing, mild deformity; 4= large osteophytes, marked narrowing, obvious deformity]: none today Patella Tracking: Normal Skin Integrity: Normal Pulses Palpable: Left PT:Yes Left DP:Yes Motor/Sensory: Left Distal Motor:Normal Distal Sensory: Normal Quadriceps Strength:5 Procedure: Goals risks and concerns of a Synvisc One injection to the knee were reviewed. The patient realizes that the steroid may provide temporary relief of their knee pain. The patient is not allergic to any medications to be used today. The patient was positioned for comfort. Theleft knee was cleansed with Chloro- prep solution. A lateral peripatellar approach was utilized. I infiltrated the soft tissue with 5cc of Lidocaine without epinephrine. After verifying placement in the joint I then instilled 48 mg of Synvisc One solution. Paper tape and a 2X2 were placed. The patient will keep the knee dry overnight, no shower until tomorrow, no pool or water submersionfor 48 hours. Effects of the Synvisc may take up to one months to fully be appreciated. The patientmay not repeat the injection for at least 8 months. They will call if they experience any fever, chills or drainage from the needle insertion site which may indicate infection. The patient is in agreement with this plan. documented in this encounter Plan of Treatment Not on file documented as of this encounter Visit Diagnoses Diagnosis Osteoarthritis, knee- Primary Osteoarthrosis, unspecified whether generalized or localized, lower leg documented in this encounter Care Teams Mash Processing Operator Relationship Specialty Start Date End Date Jerman Powell MD [address] [place] [address] PCP - General 05/30/11 05/30/21 documented as of this encounter
--- OUTSIDE RECORDS SUMMARY | 2024-03-21 14:01 | XMS_ITS | Encounter Summary ---
[place] [address] Care Team Providers Care Template Checker Name Role Phone Oscar Callahan MD Primary Care Provider [phone] Reason for Visit * Reason Comments Pruritus Encounter Details Date Type Department Care Team (Late st Contact Info) Description 03/14/2011 3:15 PM EDT Office Visit Dermatology [address] [place] [address] [address] [place] [address] Fausto Luna MD [address], [place] [address] Dermatitis herpetiformis (Primary Dx); Neurodermatitis Social History [...] Progress Notes * Fausto Luna MD - 03/14/2011 4:08 PM EDT Problems: 1. Followup dermatitis herpetiformis. 2. On dapsone 75 mg a day since April 2006. 3. Phlebitis of the lower extremities. Janna follows up and is having more problems with itching. Her DH, it seems, appears to be breaking through her current dosage of 75 mg a day; plus, her scalp is still itchy. The ketoconazole shampoo did not help her. She is under a lot of stress. Her balance is off. She is starting to have trouble ambulating and apparently also has some bony fracture, which was not diagnosed for a time. Physical examination reveals erythematous, excoriated papules, particularly over the elbows, a little bit over the dorsal forearms, consistent with DH. She has acne excoriee within her scalp. Assessment and Plan: 1. Dermatitis herpetiformis/gluten enteropathy, flaring through current dapsone dose. 1a. Increase dapsone from 75 to 100 mg a day taken in two divided doses. The patient was given a prescription for dapsone 50 mg to take one p.o. b.i.d. 2. Acne excoriee, scalp. 2a. Begin Synalar solution applied to scalp on a nightly basis. Shampoo out in the morning with selenium sulfide 2.5% lotion; 120 mL dispensed with p.r.n. refills. Of the fluocinolone, she was given 60 mL with five refills. 2b. Return to the clinic in one month for a repeat check. Note: The patient still complains of problems with her feet in terms of subcorneal bumps and pustules. Clotrimazole cream apparently was not helpful for her. Consider a trial of betamethasone cream or clobetasol cream. documented in this encounter Plan of Treatment Not on file documented as of this encounter Visit Diagnoses Diagnosis Dermatitis herpetiformis- Primary Neurodermatitis Lichenification and lichen simplex chronicus documented in this encounter Care Teams Template Checker Relationship Specialty Start Date End Date Oscar Callahan MD [address] [place] [address] PCP - General 11/10/10 05/29/11 documented as of this encounter
--- OUTSIDE RECORDS SUMMARY | 2024-03-21 14:01 | XMS_ITS | Encounter Summary ---
Author Organization [facility]ly [place] [address] Care Team Providers Care Senior Research Consultant Name Role Phone Jerman Powell MD Primary Care Provider [phone] Reason for Visit * Reason Onset Date Comments Medication Refill 09/21/2015 Encounter Details Date Type Department Care Team (Late st Contact Info) Description 09/21/2015 Refill [place] [address] Bryn Martin MD [facility] [place] [address] Spinal stenosis of lumbar region Social History Tobacco Use Types Packs/Day Years [...] as of this encounter Visit Diagnoses Diagnosis Spinal stenosis of lumbar region Spinal stenosis, lumbar region, without neurogenic claudication documented in this encounter Care Teams Senior Research Consultant Relationship Specialty Start Date End Date Jerman Powell MD [address] [place] [id number] PCP - General 05/30/11 05/30/21 documented as of this encounter
--- OUTSIDE RECORDS SUMMARY | 2024-03-21 14:02 | XMS_ITS | Clinical Summary ---
Author Organization [facility] Address [address] [place] [address] Care Team Providers Care Hatch Tender Name Role Phone Jerman Powell MD Primary Care Provider [phone] Allergies No known active allergies Medications Medication Sig Dispensed Refills Start Date End Date Status warfarin (COUMADIN) 7.5 mg tablet Take 7.5 mg by mouth daily. everyday EXCEPT Tues / FRI Active warfarin (COUMADIN) 5 mg tablet Take 5 mg by mouth daily. TUES/ FRI Active amitriptyline (ELAVIL) 10 mg tablet Take 10 mg by mouth at bedtime. Active dapsone 100 mg tablet Take 75 mg by mouth daily. Active methylPREDNISolone (MEDROL, HARDIK,) 4 mg tablet Take 4 mg by mouth SEE ADMIN INSTRUCTIONS. follow package directions Active gabapentin (NEURONTIN) 100 mg capsule Take 100 mg by mouth daily with breakfast. Active gabapentin (NEURONTIN) 300 mg capsule Take 300 mg by mouth at bedtime. Active Miscellaneous Medical Supply (COMPRESSION STOCKINGS) [facility] 1 Units by [facility].(Non-Drug; Combo Route) route continuous. 1 Each 0 06/17/2009 Active Surgical History Surgery Date Site/Laterality Comments ABDOMEN SURGERY c section CHOLECYSTECTOMY Medical History Medical History Date Comments DVT (deep venous thrombosis) ([facility]) Social History Tobacco Use Types Packs/Day Years Used Date Smoking Tobacco: Every Day Cigarettes Alcohol Use Standard Drinks/Week Comments No 0 (1 standard drink = 0.6 oz pur e alcohol) Interpersonal Safety Answer Date Record ed Physically Hurt Never 03/21/2020 Verbally Threaten Not on file 03/21/2020 Sex and Gender Information Value Date Recorded Sex Assigned at Not on file Gender Identity Not on file Sexual Orientation Not on file Obstetrics History Last Filed Vital Signs Vital Sign Reading Time Taken Comments Blood Pressure 133/61 06/17/2009 1420 EDT Pulse 96 06/17/2009 1420 EDT Temperature 36.6 ??C (97.9 ??F) 06/17/2009 1420 EDT Respiratory Rate 16 06/17/2009 1420 EDT Oxygen Saturation 92% 06/17/2009 1420 EDT Inhaled Oxygen Concentration - - Weight 90.7 kg (200 lb) 06/17/2009 1009 EDT Height 157.5 cm (5' 2) 06/17/2009 1009 EDT Body Mass Index 36.58 06/17/2009 1009 EDT Plan of Treatment Health Maintenance Due Date Last Done Comments Hepatitis C Screen 1955 RSV Immunization ( o r 60+ Years) (1 - 1-dose 60+ series) 2016 Fall Risk Screening 2021 COVID-19 Vaccine (2022-24 season) 2023 Care Teams Hatch Tender Relationship Specialty Start Date End Date Jerman Powell MD PCP - General 06/23/19
--- OUTSIDE RECORDS SUMMARY | 2024-03-21 14:02 | XMS_ITS | Encounter Summary ---
Author Organization [facility] Address [address] [place] [address] Care Team Providers Care Mounter Name Role Phone Jerman Powell MD Primary Care Provider [phone] Encounter Details Date Type Department Care Team (Late st Contact Info) Description 02/22/2023 Lab Requisition [facility] Pathology & Laboratory Medicine - [address] [address] Outr Resulting Lab, Provider Social History Tobacco Use Types Packs/Day Years [...] Procedure Name Priority Date/Time Associated Diagnosis Comments CALCIUM, URINE 24HR Routine 02/22/2023 7:45 EDT MAGNESIUM, URINE 24HR Routine 02/22/2023 7:45 EDT documented in this encounter Results * MAGNESIUM, URINE 24HR (02/22/2023 7:45 EDT) Magnesium, Urine 9.0 See Note mg/dL 02/23/2023 8:36 EDT [facility] Comment: NOTE: Reference range not established Magnesium, Urine 24 hr 108.0 12.0 - 192.0 mg/24hrs 02/23/2023 8:36 EDT [facility] Urine Volume 1,200 mL 02/23/2023 8:36 EDT [facility] Urine Collection Period 23.0 Hours 02/23/2023 8:36 EDT [facility] Urine 24 HOUR URINE SPECIMEN / Unknown 02/22/2023 7:45 EDT 02/22/2023 17:58 EDT Provider Outr Resulting Lab URINALYSIS O RDERABLES Performing Organization Address [facility] Co de Phone Number [facility] [address] [place] [address] * (ABNORMAL) CALCIUM, URINE 24HR (02/22/2023 7:45 EDT) Calcium, Urine <1.0 See Note mg/dL 02/23/2023 8:39 EDT [facility] Comment: NOTE: Reference range not established Calcium, Urine 24 hr <12(L) 100 - 300 mg/24hr 02/23/2023 8:39 EDT [facility] Comment:Reference range assu mes a normal daily intake of calcium between 600 - 800 mg/day. Urine Volume 1,200 mL 02/23/2023 8:39 EDT [facility] Urine Collection Period 23.0 Hours 02/23/2023 8:39 EDT [facility] Urine 24 HOUR URINE SPECIMEN / Unknown 02/22/2023 7:45 EDT 02/22/2023 17:58 EDT Provider Outr Resulting Lab URINALYSIS O RDERABLES Performing Organization Address [facility]/ZIP Co de Phone Number [facility] [address] [place] [address] documented in this encounter Visit Diagnoses Not on filedocumented in this encounter Care Teams Mounter Relationship Specialty Start Date End Date Jerman Powell MD PCP - General 06/23/19 documented as of this encounter
--- OUTSIDE RECORDS SUMMARY | 2024-03-21 14:02 | XMS_ITS | Encounter Summary ---
Author Organization [facility] Address [address] [place] [address] Care Team Providers Care Catering Truck Operator Name Role Phone Jerman Powell MD Primary Care Provider [phone] Encounter Details Date Type Department Care Team (Late st Contact Info) Description 02/14/2023 Lab Requisition [facility] Pathology & Laboratory Medicine - [address] [address] Outr Resulting Lab, Provider Social History Tobacco [...] Procedure Name Priority Date/Time Associated Diagnosis Comments PTH INTACT Routine 02/14/2023 8:20 EDT documented in this encounter Results * PTH INTACT (02/14/2023 8:20 EDT) Intact PTH 65 19 - 88 pg/mL 02/14/2023 18:45 EDT [facility] Blood VENOUS BLOOD / Unknown 02/14/2023 8:20 EDT 02/14/2023 17:07 EDT Provider Outr Resulting Lab CHEMISTRY & BLOOD GAS ORDERABLES [facility] [address] [place] [address] documented in this encounter Visit Diagnoses Not on filedocumented in this encounter Care Teams Catering Truck Operator Relationship Specialty Start Date End Date Jerman Powell MD PCP - General 06/23/19 documented as of this encounter
--- OUTSIDE RECORDS SUMMARY | 2024-03-21 14:02 | XMS_ITS | Encounter Summary ---
Author Organization [facility] Address [address] [place] [address] Care Team Providers Care Cattle Manager Name Role Phone Oscar Callahan MD Primary Care Provider Unavail able Encounter Details Date Type Department Care Team (Latest Contact Info) Description 06/21/2009 9:23 EST - 06/21/2009 23:59 EST Hospital Encounter [facility] Hematology & Oncology - [facility] [address] [place], [place] [id number] [address] [address] [place] [address] Discharge Disposition: Home or Self Care Social History Tobacco Use Types Packs/Day Years [...] Sig Dispensed Refills Start Date End Date amitriptyline (ELAVIL) 10 mg tablet Take 10 mg by mouth at bedtime. dapsone 100 mg tablet Take 75 mg by mouth daily. gabapentin (NEURONTIN) 100 mg capsule Take 100 mg by mouth daily with breakfast. gabapentin (NEURONTIN) 300 mg capsule Take 300 mg by mouth at bedtime. methylPREDNISolone (MEDROL, HARDIK,) 4 mg tablet Take 4 mg by mouth SEE ADMIN INSTRUCTIONS. follow package directions Miscellaneous Medical Supply (COMPRESSION STOCKINGS) Misc 1 Units by [facility].(Non-Drug; Combo Route) route continuous. 1 Each 0 06/17/2009 warfarin (COUMADIN) 5 mg tablet Take 5 mg by mouth daily. TUES/ FRI warfarin (COUMADIN) 7.5 mg tablet Take 7.5 mg by mouth daily. everyday EXCEPT Tues / FRI documented as of this encounter Discharge Disposition Disposition Code Departure Means Destination Home or Self Senior Care documented in this encounter Consult Notes * Yehuda [facility] NP - 06/21/2009 0000 EST DIVISION OF HEMATOLOGY / ONCOLOGY CONSULTATION - 06/21/2009 REASON FOR VISIT: Asked to provide consultation by Dr Oscar Callahan regarding long-term managementof hypercoagulable syndrome. Ms Junior with initial incidence of thrombosis in 1975 in the setting of a pulmonary embolism. HISTORY OF PRESENT ILLNESS: Ms Junior is a 58-year-old female who was most recently treated at [facility] Emergency Department on 06/17/2009. She was admitted for left foot pain. This has been an ongoing problem for a number of years. Treatment at the emergency department included an ultrasound, which showed that the external iliac and common femoral veins are patent with normal Doppler flow. The left peroneal vein has any focal area of moderately echogenic wall thrombus. It occupies 30% of the luminal cross section. Thrombus extends into the distal superficial left femoral vein. Both vessels are partly compressible with normal flow by color Doppler examination, the impression being achronic thrombus in the left peroneal vein extending to the distal left superficial femoral vein with a 70% cross-section vessel patency. Ms Junior was discharged in stable condition with renewal of her warfarin 7.5mg 5 days per week, 5mg 5 days per week. Ms Junior was then referred to the thrombosis and hemostasis clinic and seen on 06/21/2009. Ms Junior's past medical history was difficult to determine as she was a poor historian. I was able to look at some old hospital records from 1975, where she experienced an intrauterine demise at 28 weeks. This was complicated with hypertension, preeclampsia, proteinuria, as well as well asthrombosis. This appears to be the start of her history of thrombosis. Ms Junior had a second child in early 1978. Dr Pradeep Gil was her attending. A note that I was able to find from him states she had incident of deep vein thrombosis on 03/1978, but I was not able to obtain any records of this. She apparently has been on long-term anticoagulation since 1977. [facility]. This showed soft tissue swelling with no evidence of fracture. There was also an ultrasound performed at [facility] [place] [facility] on 06/01/2009 which did not show an incidence of any deep vein thrombosis in the left leg. Ms Junior is denying any difficulty with her anticoagulation. She specifically denies any unusual bruising or bleeding. She denies any shortness of breath or chest pain. She is complaining of this ongoing leg pain. She has seen her primary care doctor for this reason. Differential diagnosis for her leg pain has included possible gout, neuropathy, osteoarthritis, or neuroma. Ms Junior says the pain sometimes causes her to have difficulty walking. PAST MEDICAL HISTORY: 1. Hypercoagulable syndrome as noted above, on long-term anticoagulation since 1977. 2. Neuropathy. 3. Depression 4. Tobacco addiction. PAST SURGICAL HISTORY: Carpal tunnel in 2003, gallbladder removal in 1998. OBSTETRICAL HISTORY: Number of pregnancies 2, number of live births 1, one miscarriage at 28 weeks.History of toxemia with first . No use of oral contraceptives or estrogen replacement therapy. HEALTH MAINTENANCE: Mammogram approximately ten years ago normal, no history of colonoscopy. ALLERGIES: The patient denies allergies to food, medicine or latex. MEDICATIONS: Warfarin alternating doses of either 7.5 mg or 5 mg daily. Amitriptyline 10 mg daily. Dapsone 50 mg a.m., 75 mg p.m. Methyl prednisone 4 mg daily. Gabapentin 100 mg a.m., 300 mg at nightly. Tylenol with codeine p.r.n. Prilosec 20 mg nightly. SOCIAL HISTORY: The patient graduated from the ninth grade. Works as an [employer]. Describes her health as fair. Does not exercise on a regular basis. A current smoker, half pack to a pack per day x30 years. Denies any alcohol or illicit drug use. FAMILY HISTORY: The patient's family pedigree is drawn and documented in the chart. The patient hasone brother she believes had a thrombosis in some sort of accident. She could not be more specific.The patient has one sister. No history of deep vein thrombosis. She has had three children without difficulty. The patient's mother alive at 76 with a history of breast carcinoma. The patient's father at 74 of complications of alcoholism with history of smoking and emphysema. REVIEW OF SYSTEMS: A 12-point review of systems was reviewed by the patient and myself and is documented in the chart. Pertinent negatives: No shortness of breath, no chest pain. Pertinent positives:Ongoing fatigue, left leg pain, weakness in the left leg as well as ongoing headaches. PHYSICAL EXAMINATION: Temperature today is 36.8, heart rate 64, blood pressure 118/78, [id number]. Height 157 cm. Weight is 90.8 kilograms (BMI 36). In general, a well-developed, well-nourished,middle-aged female appears older than stated age. In general, a chronically ill-appearingCaucasian female appears older than stated age. ECOG status 0. Head, ears, eyes, nose and throat: The patient is normocephalic. Ocular movements are intact. Sclera is clear. Conjunctivae are pink. The oropharynx is moist and intact without evidence of mucosal breakdown. The tongue is midline. Neck is supple, with no lymphadenopathy. Lungs are clear to auscultation in all larios. No wheezes, ralesor rhonchi. Cardiac: S1, S2 with a regular rate and rhythm. No gallop, rub or murmur. The abdomen is soft, nontender, nondistended with positive bowel sounds. Lower extremities show the left leg is moderately edematous. There is mild venous ataxia as well as some redness. There is some tenderness to palpation to the touch. IMAGING: As noted above, ultrasound from 06/17 at [facility] is positive for chronic thrombus in the left peroneal vein extending into the distal left superficial femoral vein 7% cross-sectional vessel patency. LABORATORY DATA: Be D-dimer on 06/17/2009 0.59. ASSESSMENT: Ms Junior is a 53-year-old female whose history of thrombosis dates back to 1975, where she experienced a pulmonary embolism in the setting of intrauterine demise at 28 weeks. Sherito experienced a DVT in 1977. Ms Junior has been on long-term anticoagulation now for well over30 years. Risk factors for Ms Junior include her weight, BMI greater than 30. In reviewing her family history, her brother has had an incidence of thrombosis, although this appears to be in an accident. Ms Junior has had a long history of left foot discomfort. Ultrasound from 06/17 shows this to be a thrombus in chronic appearance. 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 Other risk factors in Ms Junior's overall health: She has a 30-plus year history of smoking. Thisputs her at risk for atherosclerotic disease including cardiovascular disease and stroke. Ms Junior also suffers from depression. This appears to be a lifelong problem and she is being treated for this medically with success. PLAN: 1. Anticoagulation Mr. Junior will remain on warfarin with a target INR between 2.0 and 3.0. These will be continued to be followed by her primary care doctor. She should have her INRs checked no greater than every 4 weeks. Length of anticoagulation will be long-term. 2. Postthrombotic syndrome. Mr. Junior has significant discomfort secondary to postthrombotic syndrome. She was strongly encouraged to wear compression garments, 20 to 30 mg of mercury on a daily basis while awake. Ms Junior would also benefit from massage therapy. I will contact VERENICE Interiano, for referral for lymphedema therapists who live in the [place], [place] area. 3. Education. I reviewed the signs and symptoms of pulmonary embolism and deep vein thrombosis withMs Junior. I also reviewed the concept of risk pool, the rationale for long-term anticoagulation,as well as implications for post- thrombotic syndrome. All of Ms Junior's questions were answered to her satisfaction. Ms Junior was also encouraged to enroll in a smoking cessation program as well as to interrupting her warfarin therapy for her colonoscopy. 4. Follow up. Ms Junior will return to the thrombosis and hemostasis clinic on 10/08/2009. She will meet with VERENICE Interiano, she has a great deal of expertise in postthrombotic syndrome. Electronically Signed by eYhuda Norman APRN 07/30/2009 15:20 Dictated by: Yehuda Norman APRN - Yehuda Norman APRN P - MS Job ID: SM Doc ID: [id number] Ext Doc ID: [id number] cc: XIMENA Interiano MD Neil Zakai, MD documented in this encounter Plan of Treatment Not on file documented as of this encounter Visit Diagnoses Not on filedocumented in this encounter Care Teams Cattle Manager Relationship Specialty Start Date End Date Oscar Callahan MD PCP - General 06/17/09 06/22/19 documented as of this encounter
--- OUTSIDE RECORDS SUMMARY | 2024-03-21 14:02 | XMS_ITS | Encounter Summary ---
Author Organization [facility] Address [address] [place] [address] Care Team Providers Care Hat Sizer Name Role Phone Oscar Callahan MD Primary Care Provider Unavail able Encounter Details Date Type Department Care Team (Late st Contact Info) Description 06/20/2019 9:51 EDT Hospital Encounter [address] [address] Unknown, Provider, Social History Tobacco Use Types Packs/Day Years [...] on filedocumented in this encounter Care Teams Hat Sizer Relationship Specialty Start Date End Date Oscar Callahan MD PCP - General 06/17/09 06/22/19 documented as of this encounter
--- OUTSIDE RECORDS SUMMARY | 2024-03-21 14:02 | XMS_ITS | Encounter Summary ---
Author Organization [facility] Address [address] [place] [address] Care Team Providers Care Almond Cutting Machine Tender Name Role Phone Jerman Powell MD Primary Care Provider [phone] Encounter Details Date Type Department Care Team (Late st Contact Info) Description 10/26/2022 Lab Requisition [facility] Pathology & Laboratory Medicine - [address] [address] Outr Resulting Lab, Provider Social History Tobacco [...] Procedure Name Priority Date/Time Associated Diagnosis Comments TRANSFERRIN Routine 10/26/2022 10:40 EST documented in this encounter Results * TRANSFERRIN (10/26/2022 10:40 EST) Transferrin 343 201 - 352 mg/dL 10/27/2022 9:46 EST [facility] Blood VENOUS BLOOD / Unknown 10/26/2022 10:40 EST 10/26/2022 21:55 EST Provider Outr Resulting Lab CHEMISTRY & BLOOD GAS ORDERABLES [facility] [address] [place] [address] documented in this encounter Visit Diagnoses Not on filedocumented in this encounter Care Teams Almond Cutting Machine Tender Relationship Specialty Start Date End Date Jerman Powell MD PCP - General 06/23/19 documented as of this encounter
--- OUTSIDE RECORDS SUMMARY | 2024-03-21 14:02 | XMS_ITS | Encounter Summary ---
Author Organization [facility] Address [address] [place] [address] Care Team Providers Care Commercial Correspondent Name Role Phone Oscar Vines MD Primary Care Provider Unavail able Reason for Visit * Reason Comments Foot Pain chronic foot pain , PMD in [place] has done xrays / no improvement in pain , concerned with possible vascular problem Encounter Details Date Type Department Care Team (Late st Contact Info) Description 06/17/2009 9:55 EDT - 06/17/2009 16:06 EDT Emergency [facility] Emergency Department - [address] [place] [address] Jaquan Ortiz PA-C [address] [place] [id number] Emergency, Default, Foot Swelling Discharge Disposition: Home or Self Care Social [...] Body Mass Index 36.58 06/17/2009 1009 EDT documented in this encounter Discharge Instructions * Discharge Instructions* Jaquan Ortiz - 06/17/2009 15:21 EDT * Attachments The following attachments cannot be sent through Care Everywhere. * FOOT PAIN: AFTER YOUR VISIT (TRISTANIAN) * LEG AND ANKLE EDEMA: AFTER YOUR VISIT (TRISTANIAN) documented in this encounter Medications at Time [...] Supply (COMPRESSION STOCKINGS) Misc 1 Units by [facility].(Non-Drug; Combo Route) route continuous. 1 Each 0 06/17/2009 warfarin (COUMADIN) 5 mg tablet Take 5 mg by mouth daily. TUES/ FRI warfarin (COUMADIN) 7.5 mg tablet Take 7.5 mg by mouth daily. everyday EXCEPT Tues / FRI documented as of this encounter Ordered Prescriptions Prescription Sig Dispensed Refills Start Date End Da te Miscellaneous Medical Supply (COMPRESSION STOCKINGS) Misc 1 Units by [facility].(Non-Drug; Combo Route) route continuous. 1 Each 0 06/17/2009 documented in this encounter Discharge Disposition Disposition Code Departure Means Destination Home or Self Care Car Home documented in this encounter ED Notes * Riana Sommer - 06/17/2009 1606 EDT Pt ambulates out of ED in NAD accompanied by family x2 * Riana Sommer - 06/17/2009 1558 EDT Blood drawn via right FA c 21g butterfly needle per protocol, BLUE tube(s) sent to lab per order. * Riana Sommer - 06/17/2009 1538 EDT Pt very anxious to leave; cont's to voice frustration c length of stay; pt educ that process is moving along c in expected time frame and that Ping is aware that she wishes for dispo * Jaquan Ortiz - 06/17/2009 1501 EDT Images from the original note were not included. DOS: 06/17/2009 Chief Complaint Patient presents with ??? Foot Pain chronic foot pain , PMD in [place] has done xrays / no improvement in pain , concerned with possible vascular problem Patient is a 53 y.o. female presenting with lower extermity pain. The history is provided by the patient. Foot Pain This is a chronic problem. The current episode started more than 1 week ago. The problem occurs daily. The problem has not changed since onset. The pain is present in the left foot and left ankle. The pain quality is described as dull. The pain is at a severity of 4/10. The pain is moderate. Pertinent negatives include no numbness, no limited range of motion, no stiffness, no tingling and no itching. The symptoms are worsened by activity and standing. There has been no history of trauma. Familyhistory is significant for no rheumatoid arthritis and no gout. Pt is a 53 yo female who presents to ED c/o left foot pain. Pt has hx of DVT in left calf and has been on coumadin. 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 She states that her left foot swells up and she would like to get a second opinion, stating I want to know why I'm having varicose ve ins popping up on my ankle. Pt had an US to R/O dvt one week ago but states she doesn't trust thathospital. Review of Systems Constitutional: Negative for fever and chills. HENT: Negative for neck stiffness. Eyes: Negative for visual disturbance. Respiratory: Negative for shortness of breath. Cardiovascular: Negative for chest pain. Gastrointestinal: Negative for abdominal pain. Genitourinary: Negative for dysuria. Musculoskeletal: Negative for back pain. Skin: Positive for color change. Negative for rash and itching. Neurological: Negative for tingling, numbness and headaches. Psychiatric/Behavioral: Negative for confusion. All other systems reviewed and are negative. Past Medical History Diagnosis Date ??? DVT (Deep Venous Thrombosis) Past Surgical History Procedure Date ??? Abdomen surgery c section ??? Cholecystectomy No Known Allergies History Substance Use Topics ??? Tobacco Use: Yes -- 0.5 packs/day ??? Alcohol Use: No History reviewed. No pertinent family history. BP 133/61 Pulse 96 Temp(Src) 36.6 ??C (97.9 ??F) (Oral) Resp 16 Ht 1.575 m (5' 2) Wt 90.719 kg (200 lb) SpO2 92% LMP Postmenopausal Physical Exam Nursing note and vitals reviewed. Constitutional: She appears well-developed and well-nourished. No distress. HENT: Head: Normocephalic and atraumatic. Nose: Nose normal. Eyes: Extraocular motions are normal. Right eye exhibits no discharge. Left eye exhibits no discharge. Neck: Normal range of motion. Neck supple. No tracheal deviation present. Cardiovascular: Normal rate, regular rhythm and normal heart sounds. Pulmonary/Chest: Breath sounds normal. No respiratory distress. She has no wheezes. She has no rales. Abdominal: Soft. Bowel sounds are normal. No tenderness. Musculoskeletal: Normal range of motion. She exhibits edema and tenderness. Left lower leg: She exhibits swelling and edema. She exhibits no tenderness, no bony tenderness, nodeformity and no laceration. Legs: Neurological: She is alert. She has normal strength. No sensory deficit. Skin: No rash noted. Psychiatric: She has a normal mood and affect. Radiology orders: RAD US DOPPLER LOWER EXTREMITY VENOUS UNILATERAL RAD US DOPPLER LOWER EXTREMITY VENOUS UNILATERAL (Results Pending) Procedures ED Course: Pt waited for US for more than one hour / became quite frustrated at the waiting time. US tech eventually arrived and performed test bedside. Discussed findings of DVT study with Heme Onc Resident, Alfonso Carlos. Findings show 70% patency of vessel with 30% blockage due to chronic dvt. Dr. Carlos recommended drawing D- Dimer, providing script for TOM's stockings and referring patient to DVT clinic forfu within 2 days. Pt agrees to plan and discharge instructions. Pt is currently on coumadin. Discharge Prescriptions New Prescriptions No Discharge Prescriptions for this patient MDM Number of Diagnoses and Management Options Foot Swelling: new, needed workup General comments: 4 Amount and/or Complexity of Data Reviewed Clinical lab tests: ordered and reviewed Tests in the radiology section of CPT??: ordered and reviewed Discussion of test results with the performing providers: yes Risk of Complications, Morbidity, and/or Mortality Presenting problems: moderate Diagnostic procedures: moderate Management options: moderate Patient Progress Patient progress: stable Encounter Diagnoses Code Name Primary? Qualifier ??? 729.81H Foot Swelling PCP: OSCAR VINES MD 06/17/2009 3:01 PM ED Attending Available for Supervision: Anatoly Quispe * Riana Sommer - 06/17/2009 1351 EDT Pt still awaiting u/s results; up and out of ED in parking lot c family members; appears in NAD * Riana Sommer - 06/17/2009 1305 EDT U/s tech at bedside * Riana Sommer - 06/17/2009 1243 EDT PING at bedside to discuss dispo to pt; BETTY * Riana Sommer - 06/17/2009 1234 EDT Pt dressed in street clothes and demands a referral for a vascular surgeon i am not waiting any longer!; appears in NAD and angry. PA-c aware and pt educ to wait in eval room and d/c paperwork willhave telephone number of MD she is able to have f/up documented in this encounter Miscellaneous Notes * Scanned Note-Null - Inpatient, Physician - 06/19/2009 0939 EDT documented in this encounter Plan of Treatment Not on file documented as of this encounter Procedures Procedure Name Priority Date/Time Associated Diagnosis Comments D-DIMER STAT 06/17/2009 15:40 EDT RAD US DOPPLER LOWER EXTREMITY VENOUS UNILATERAL STAT 06/17/2009 14:13 EDT documented in this encounter Results * (ABNORMAL) D-DIMER (06/17/2009 15:40 EDT) D-Dimer 0.59(H) <0.50 ug FEU/ml [facility] Comment: The presence of rheumatoid factor (RF) at a level greater than 50IU/ml may ?lead to an over-estimation of the D-Dimer level. ??It is therefore ?recommended that the presence of RF in the test samples be confirmed by an ?appropriate RF procedure for cases of unexplained D-Dimer positive results. CUTOFF VALUE FOR THE EXCLUSION OF DVT and PE: 0.5 ug FEU/mL Blood specimen (specimen) 06/17/2009 15:40 EDT 06/17/2009 16:00 EDT Jaquan Ortiz PA-C HEMATOLOGY & PF4 ORD ERABLES [facility] [address] [place] [address] * RAD US DOPPLER LOWER EXTREMITY VENOUS UNILATERAL (06/17/2009 14:13 EDT) Anatomical Region Laterality Modality Other 06/17/2009 14:1 3 EDT 06/17/2009 15:36 EDT Narrative 06/17/2009 15:36 EDT RAD US DOPPLER LOWER EXTREMITY VENOUS UNILATERAL ??Jun 17, 2009 02:13:00 PM Clinical History/Comments: swelling / ??pain mostly to ankle / hx of dvt Comparison: None Findings: Duplex evaluation of the deep veins of the left lower extremity was performed. The external iliac and common femoral veins are patent with normal Doppler flow, normal respiratory phasicity and normal augmentation to distal compression. The left popliteal vein has a focal area of ??moderately echogenic wall thrombus that occupies 30% of the luminal cross-sectional area. The thrombus extends into the distal superficial femoral vein. Both vessels are partially compressible with normal flow by color Doppler examination. ??The posterior tibial and peroneal veins in the calf appear patent on color Doppler evaluation. 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 I have personally reviewed the images and the above interpretation and agree with the findings. Procedure Note Osiel Bedolla MD / Osiel Bedolla MD / Osiel Bedolla MD / Osiel Bedolla MD - 06/17/2009 RAD US DOPPLER LOWER EXTREMITY VENOUS UNILATERAL Jun 17, 2009 02:13:00 PM Clinical History/Comments: swelling / pain mostly to ankle / hx of dvt Comparison: None Findings: Duplex evaluation of the deep veins of the left lower extremity was performed. The external iliac and common femoral veins are patent with normal Doppler flow, normal respiratory phasicity and normal augmentation to distal compression. The left popliteal vein has a focal area of moderately echogenic wall thrombus that occupies 30% of the luminal cross-sectional area. The thrombus extends into the distal superficial femoral vein. Both vessels are partially compressible with normal flow by color Doppler examination. The posterior tibial and peroneal veins in the calf appear patent on color Doppler evaluation. 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 I have personally reviewed the images and the above interpretation and agree with the findings. Jaquan COLLINS US ORDERABLES documented in this encounter Visit Diagnoses Diagnosis Foot swelling Swelling of limb documented in this encounter Historical Medications * This list may reflect changes made after this encounter. Medication Sig Dispensed Refills Start Date End Date gabapentin (NEURONTIN) 300 mg capsule Take 300 mg by mouth at bedtime. gabapentin (NEURONTIN) 100 mg capsule Take 100 mg by mouth daily with breakfast. methylPREDNISolone (MEDROL, HARDIK,) 4 mg tablet Take 4 mg by mouth SEE ADMIN INSTRUCTIONS. follow package directions dapsone 100 mg tablet Take 75 mg by mouth daily. amitriptyline (ELAVIL) 10 mg tablet Take 10 mg by mouth at bedtime. warfarin (COUMADIN) 5 mg tablet Take 5 mg by mouth daily. TUES/ FRI warfarin (COUMADIN) 7.5 mg tablet Take 7.5 mg by mouth daily. everyday EXCEPT Tues / FRI added in this encounter Care Teams Commercial Correspondent Relationship Specialty Start Date End Date Oscar Vines MD PCP - General 06/17/09 06/22/19 documented as of this encounter
--- OUTSIDE RECORDS SUMMARY | 2024-03-21 14:02 | XMS_ITS | Encounter Summary ---
Author Organization [facility] Address [address] [place] [address] Care Team Providers Care Health And Nutrition Specialist Name Role Phone Jerman Powell MD Primary Care Provider [phone] Encounter Details Date Type Department Care Team (Late st Contact Info) Description 04/04/2023 Lab Requisition [facility] Pathology & Laboratory Medicine - [address] [address] Outr Resulting Lab, Provider Social History Tobacco [...] Procedure Name Priority Date/Time Associated Diagnosis Comments LYME AB Routine 04/04/2023 13:15 EDT documented in this encounter Results * LYME AB (04/04/2023 13:15 EDT) Lyme Ab Negative Negative 04/05/2023 9:45 EDT [facility] Blood VENOUS BLOOD / Unknown 04/04/2023 13:15 EDT 04/04/2023 21:54 EDT Provider Outr Resulting Lab IMMUNOLOGY A ND SEROLOGY ORDERABLES [facility] [address] [place] [address] documented in this encounter Visit Diagnoses Not on filedocumented in this encounter Care Teams Health And Nutrition Specialist Relationship Specialty Start Date End Date Jerman Powell MD PCP - General 06/23/19 documented as of this encounter
--- OUTSIDE RECORDS SUMMARY | 2024-03-21 14:02 | XMS_ITS | Referral Summary ---
Author Organization [facility] Address [address] [place] [address] Care Team Providers Care Director Of Customer Service Name Role Phone Jerman Powell MD Primary Care Provider [phone] Allergies No known active allergies Medications Medication [...] bedtime. Active Miscellaneous Medical Supply (COMPRESSION STOCKINGS) Mis 1 Units by [facility].(Non-Drug; Combo Route) route continuous. 1 Each 0 06/17/2009 Active Social History Tobacco Use Types Packs/Day Years [...] - Weight 90.7 kg (200 lb) 06/17/2009 100 EDT Height 157.5 cm (5' 2) 06/17/2009 100 EDT Body Mass Index 36.58 06/17/2009 100 EDT Plan of Treatment Not on file Care Teams Director Of Customer Service Relationship Specialty Start Date End Date Jerman Powell MD PCP - General 06/23/19
--- OUTSIDE RECORDS SUMMARY | 2024-03-21 14:02 | XMS_ITS | Encounter Summary ---
Author Organization [facility] Address [address] [place] [address] Care Team Providers Care Investor Relations Coordinator Name Role Phone Jerman Powell MD Primary Care Provider [phone] Encounter Details Date Type Department Care Team (Late st Contact Info) Description 02/07/2021 Lab Requisition [facility] Pathology & Laboratory Medicine - [address] [address] Outr Resulting Lab, Provider Social History Tobacco Use Types Packs/Day Years Used Date Smoking Tobacco: Never Assessed Interpersonal Safety Answer Date Record ed Physically Hurt Never 03/21/2020 Verbally Threaten Not on file 03/21/2020 Sex and Gender Information Value Date Recorded Sex Assigned at Not on file Gender Identity Not on file Sexual Orientation Not on file documented as of this encounter Plan of Treatment Not on file documented as of this encounter Procedures Procedure Name Priority Date/Time Associated Diagnosis Comments ZZCOVID-19 TEST [facility] PCR Today 02/07/2021 8:45 EDT COVID-19 TESTING Routine 02/07/2021 8:45 EDT documented in this encounter Results * COVID-19 TEST [facility] PCR (02/07/2021 8:45 EDT) Swab ENTIRE NASOPHARYNX / Unknown 02/07/2021 8:45 EDT 02/07/2021 15:45 EDT Provider Outr Resulting Lab MICROBIOLOGY - GENERAL ORDERABLES [facility] [address] [place] [address] * COVID-19 TESTING (02/07/2021 8:45 EDT) COVID-19 rt-PCR Result Negative Negative 02/08/2021 14:06 EDT [facility] Comment: This test has not been FDA cleared or approved. This test has been authorized by FDA under an EUA for use by authorized laboratories. This test has been authorized only for detection of nucleic acid from 2019-nCoV, not for any other viruses or pathogens. This test is only authorized for the duration of the declaration that circumstances exist justifying the authorization of emergency use of in vitro diagnostic tests for detection and/or diagnosis of 2019-nCoV under section 564(b)(1) of Act, 21 U.S.C ?? 360bbb-3(b) (1), unless the authorization is terminated or revoked sooner. Negative results do not preclude 2019-nCoV infection and should not be used as the sole basis for treatment or other patient management decisions. Negative results must be combined with clinical observations, patient history, and epidemiological information. This test was developed and its performance characteristics determined by [facility]. It has not been cleared or approved by the US Food and Drug Administration. FDA does not require this test to go through premarket FDA review. This test is used for clinical purposes. It should not be regarded as investigational or for research. This laboratory is certified under the Clinical Laboratory Improvement Amendments (CLIA) as qualified to perform high complexity clinical laboratory testing. This test is based on the [facility] COVID-19 Emergency Use Authorization (EUA) assay, with minor modification as defined by the FDA Performed on the BR[employer]visorso 7 Flex RT-PCR System. Performing Lab [facility] Lab 02/08/2021 14:06 EDT [facility] Swab 02/07/2021 8:45 EDT 02/07/2021 15:45 EDT Provider Outr Resulting Lab MICROBIOLOGY - GENERAL ORDERABLES [facility] [address] [place] [address] documented in this encounter Visit Diagnoses Not on filedocumented in this encounter Care Teams Investor Relations Coordinator Relationship Specialty Start Date End Date Jerman Powell MD PCP - General 06/23/19 documented as of this encounter
--- OUTSIDE RECORDS SUMMARY | 2024-03-21 14:02 | XMS_ITS | Encounter Summary ---
Author Organization [facility] Address [address] [place] [address] Care Team Providers Care Director Of Admissions Name Role Phone Oscar Callahan MD Primary Care Provider Unavail able Encounter Details Date Type Department Care Team (Late st Contact Info) Description 06/20/2019 Results Only [facility] [phone] Beatriz Hernandez MD [address] [place] [phone] Social History Tobacco Use Types Packs/Day Years [...] Priority Date/Time Associated Diagnosis Comments SURGICAL PATHOLOGY Routine 06/20/2019 16 :15 EDT documented in this encounter Results * SURGICAL PATHOLOGY (06/20/2019 16:15 EDT) Pathology Report: SURGICAL PATHOLOGY REPORT Reports generated via electronic interface contain original data; however they are lacking the format of the original report. Caution should be taken when reading/interpreti ng unformatted reports. Name: ? JANNA KURTZ ? Accession #: ? [id number] ? : ? 1955 (Age: 63) ??F ? Collect Date: ? 06/20/2019 ? Location: ? [facility] ? Receive Date: ? 06/20/2019 ? Provider: BEATRIZ HERNANDEZ MD Copy to: DESTINEY CANELA MD ? Final Pathologic Diagnosis: A. SMALL BOWEL, DUODENUM, BIOPSY: - ??Colonic mucosa with intraepithelial lymphocytosis. See comment. B. STOMACH, SITE NOT OTHERWISE SPECIFIED, BIOPSY: - ??Oxyntic mucosa with mild reactive gastropathy. - ??No evidence of Helicobacter pylori on H&E. Comment: Similar findings can be seen in context of celiac enteropathy or medication/ drug effect (i.e. NSAIDs amongst others). Clinical correlation is also recommended. Document reviewed and electronically signed by: KIT HARPER MD Report ??Date: 06/23/2019 15:30 By the signature above, the attending physician certifies that he/she has personally conducted a gross and/or microscopic examination of the described specimens and rendered or confirmed the above diagnosis. Specimen(s) Received: A. ??Duodenal bx B. ??Gastric bx Clinical History: Nausea, vomiting, epigastric pain Gross Description: A. ?Received in formalin labelled with proper patient identification (initials T, B) and duodenum BX are two fragments of soft tissue (each averaging 0.2 x 0.2 x 0.2 cm). The specimen is entirely submitted in A1. B. ?Received in formalin labelled with proper patient identification (initials T, B) and gastric DX are two pink-gamble tissues (0.1 x 0.1 x 0.1 cm and 0.3 x 0.2 x 0.2 cm). Entirely submitted in B1. LD Zarate (ASCP) 06/20/2019 4:31 PM End of Report [facility] 06/20/2019 16:1 5 EDT 06/20/2019 16:15 EDT Beatriz Hernandez MD PATHOLOGY ORDERABLES [facility] [address] [place] [address] documented in this encounter Visit Diagnoses Not on filedocumented in this encounter Care Teams Director Of Admissions Relationship Specialty Start Date End Date Oscar Callahan MD PCP - General 06/17/09 06/22/19 documented as of this encounter
[2024-03-21 14:19] LABS: Abs Immature Grans 0.03 10^3/uL (0.0-0.06); Absolute Basophil Count 0.03 10^3/uL (0.0-0.2); Absolute Eosinophil Count 0.13 10^3/uL (0.0-0.7); Absolute Lymphocyte Count 0.96 10^3/uL (1.2-3.4); Absolute Monocyte Count 0.36 10^3/uL (0.1-0.8); Absolute Neutrophil Count 3.21 10^3/uL (1.2-6.7); Basophils % 0.6 %; Eosinophils % 2.8 %; HCT 26.7 % (36.0-46.0); HGB 7.8 g/dL (11.2-15.7); Immature Grans % 0.6 %; Lymphocytes % 20.3 %; MCH 26.8 pg (27.0-33.0); MCHC 29.2 % (32.0-36.0); MCV 92 fL (80-95); MPV 10.4 fL (8.0-11.0); Monocytes % 7.6 %; Neutrophils % 68.1 %; Platelet Count 175 10^3/uL (130-400); RBC 2.91 10^6/uL (3.93-5.22); RDW 16.3 % (11.7-14.6); RDW-SD 55.3 fL; WBC 4.72 10^3/uL (4.4-10.8)
[2024-03-21 14:50] LABS: Iron 39 ug/dL (50-170); Total Iron Binding Capacity 472 ug/dL (250-450)
[2024-03-21 14:57] LABS: ALT 26 U/L (14-59); AST 22 U/L (15-37); Albumin 3.3 g/dL (3.4-5.0); Alkaline Phosphatase 205 U/L (46-116); Anion Gap 5.2 mmol/L (3-11); BUN 19 mg/dL (7-18); Bilirubin, Total 0.26 mg/dL (0.2-1.0); CO2 28.8 mmol/L (21.0-32.0); CREATININE 1.5 mg/dL (0.55-1.02); Chloride 101 mmol/L (98-107); Estimated GFR 37.96 (mL/min/1.73m2); Ferritin 14 ng/mL (8-252); Glucose 154 mg/dL (74-106); Sodium 135 mmol/L (136-145); Total Protein 8.2 g/dL (6.4-8.2)
[2024-03-24 10:12] LABS: Transferrin 339 mg/dL (201-352)
== END 2024-03-21 13:57 | disposition home or self-care (01) ==
LOC: LBO 13:56
PROVIDERS: PCP Nurse Practitioner Family; Visit Provider Nurse Practitioner Family
DX: R23.1 Pallor (principal); R23.2 Flushing
CPT/HCPCS: 36415; 80053; 82728; 83540; 83550; 84466; 85025

== ENCOUNTER 2024-05-08 01:40 | Outpatient (CLI) | payer OTHER, SELFPAY ==
--- NOTE | 2024-05-08 15:24 | DI.US_ITS ---
APPROVED REPORT EXAM: Comprehensive 2D, Doppler, and color-flow Echocardiogram Patient Location: Out-Patient Roadmaster: China Cabrera RDCS (AE) Indications: Lower extremity edema Other Information Study Quality: Fair. Technically limited study due to body habitus, inability to position patient exa m done supine. Conclusion Normal left ventricular wall thickness and chamber size. Ejection fraction is 20 to 25%. There is g lobal hypokinesis Normal right ventricular size and function Left atrium is mildly dilated. Normal right atrial size There is no structural or hemodynamically significant valvular disease Estimated right ventricular systolic pressure is 51 mmHg Wall motion Left Ventricle The left ventricle is normal size. Left ventricular systolic function is decreased. There is normal l eft ventricular wall thickness. There is global hypokinesis of the left ventricle. There is no ventri cular septal defect visualized. LVEF is 20-25%. Right Ventricle The right ventricle is normal size. The right ventricular systolic function is normal. Atria The left atrium size is mildly dilated The right atrium size is normal. The interatrial septum is int act with no evidence for an atrial septal defect. Aortic Valve The aortic valve is normal in structure. Aortic valve is trileaflet. There is no aortic valvular sten osis. No aortic regurgitation is present. Mitral Valve The mitral valve is normal in structure. No evidence of mitral valve stenosis. Trace mitral regurgita tion. Tricuspid Valve The tricuspid valve is normal in structure. There is no tricuspid valve stenosis. Mild tricuspid regu rgitation. The RVSP is 51.4 mmHg. Pulmonic Valve The pulmonary valve is normal in structure. There is no pulmonic valvular stenosis. Trace pulmonic re gurgitation. Great Vessels The aortic root is normal in size. The ascending aorta is normal in size. Aortic arch is normal in ca liber. The IVC collapses <50% with inspiration. Pericardium There is no pericardial effusion. 2D Dimensions IVSD d PLAX 1.00 cm F: 0.6-1.0 Ao Root d 2.73 cm F: 2.7 - 3.3 LVPW d PLAX 1.00 cm F: 0.6 - 1.0 Ao Asc Diam d 2.39 cm F: 2.3 - 3.1 LVID d PLAX 4.52 cm F: 3.8 - 5.2 LVDs 4.11 cm F: 2.2 - 3.5 LV EF Teichholz 20.0 % FS 9.03 % LV EDV (Teich) 93.2 mL LV ESV (Teich) 74.6 mL M-Mode TAPSE 1.69 cm (M/F) >1.7 Auto EF LV EDV A4C 100.7 mL LV EDV A2C 147.2 mL LV EDV BP 121.8 mL LV ESV A4C 80.9 mL LV ESV A2C 116.6 mL LV ESV BP 96.6 mL LVEF(%) A4C 19.7 % LVEF(%) A2C 20.8 % LVEF(%) BP 20.7 % LV SV A4C 19.9 ml LV SV A2C 30.6 ml LV SV BP 25.2 ml LV CO A4C 1.8 L/min LV CO A2C 2.7 L/min LV CO BP 2.2 L/min HR A4C 88.24 BPM HR A2C 88.89 BPM LV EDV Index (BP) LA Volume LA Length A4C 5.7 cm LA Length A2C 4.6 cm LA Area A4C s 20.09 cm2 LA Area A2C s 14.46 cm2 LA Vol A4C A-L 60.15 mL LA Vol A2C A-L 38.98 mL LA Vol Biplane A-L 54.2 mL LA Vol/BSA A4C A-L LA Vol/BSA A2C A-L LA Vol/BSA BP A-L 32.8 mL/m2 LA Vol A4C MOD 56.3 mL LA Vol A2C MOD 35.8 mL LA Vol BP MOD 50.0 mL RA Volume RA Area A4C 15.7 cm2 RA ESV A4C (A-L) 41.2mL RA Vol/BSA A4C A-L RA Length A4C 5.1 cm RA ESV A4C (MOD) 40.0mL LV Diastology MV E' medial 0.057 (>0.07 m/s) MV E Vmax 0.92 (0.4-1.3 m/s) MV E/E' MED 16.17 (<14) MV A Vmax 0.95 (0.4-1.3 m/s) MV E' lateral 0.073 (>0.1 m/s) E/A Ratio 1.0 MV E/E' LAT 12.70 (<14) MV E' Average 0.065 m/s MV E/E'(average) 14.23 Aortic Valve AoV Vmax 1.31 m/s LVOT Vmax 0.84 m/s AoV Peak Grad 6.9 mmHg LVOT Peak Grad 2.8 mmHg AoV Area (Vmax) 1.83 cm2 LVOT VTI 0.164 m AoV VTI 0.263 m LVOT Mean Grad 1.7 mmHg AoV Mean Remigio. 0.96 m/s LVOT SV 46.79 mL AoV Mean Grad 4.1 mmHg LVOT Diam s 1.90 cm AoV Area (VTI) 1.78 cm2 AV Regurg Peak Gr. 6.86 mmHg Velocity Ratio 0.64 Mitral Valve MV DT 182 (160-240 msec) MV Vmax TIPS 0.88 m/s MV Mean Grad 1.6 (<2mmHg) MV VTI 0.234 m Pulmonary Valve PV Vmax 0.84 (0.5-1.5 m/s) RVOT Vmax 0.75 m/s PV Peak Grad 2.8 mmHg RVOT Peak Gr. 2.3 mmHg PV Mean Remigio 0.62 m/s RVOT VTI 0.148 m PV Mean Grad 1.7 mmHg RVOT Mean Gr. 1.3 mmHg Tricuspid Valve RA Pressure 8.00 mmHg TR Vmax 3.30 m/s TV S' 0.08 m/s TR Peak Grad 43.4 mmHg RVSP (TR) 51.4 mmHg
== END 2024-05-08 02:00 ==
LOC: DI 01:40
PROVIDERS: PCP Nurse Practitioner Family; Visit Provider Nurse Practitioner Family
DX: R60.0 Localized edema (principal)
CPT/HCPCS: 93306

== ENCOUNTER 2024-06-09 09:12 | Outpatient (CLI) | payer OTHER, SELFPAY ==
--- NOTE | 2024-06-09 09:00 | RT.EKG_ITS ---
APPROVED REPORT Exam: Resting ECG Reason for Exam: cardiac evaluation Patient Location: O HR:96 bpm ECG Measurements Heart Rate 96 AXIS OR 176 P 47 QRSd 82 QRS -18 QT 346 T 129 QTc 438 Conclusion Sinus rhythm...normal P axis, V-rate 50- 99 Borderline left axis deviation...QRS axis (-15,-29) Anteroseptal infarct, old...Q >40mS, V1-V2 Nonspecific T abnormalities, lateral leads...T <-0.10mV, I aVL V5 V6 Partial missing lead(s): V6
== END 2024-06-09 09:13 | disposition home or self-care (01) ==
LOC: DI.CARD 09:13
PROVIDERS: PCP Nurse Practitioner Family; Visit Provider Internal Medicine Cardiovascular Disease
DX: I73.9 Peripheral vascular disease, unspecified; I87.2 Venous insufficiency (chronic) (peripheral)
CPT/HCPCS: 93010

== ENCOUNTER → 2024-06-09 13:48 | Outpatient (BNVA) | payer OTHER, SELFPAY | PROVIDERS: PCP Nurse Practitioner Family; Referring Provider Nurse Practitioner Family; Visit Provider Internal Medicine Cardiovascular Disease | DX: I42.9 Cardiomyopathy, unspecified (principal); Z79.01 Long term (current) use of anticoagulants; D64.9 Anemia, unspecified; R03.0 Elevated blood-pressure reading, without diagnosis of hypertension | CPT/HCPCS: 93005; 99214 ==

== ENCOUNTER → 2024-07-07 14:18 | Outpatient (BNVA) | payer OTHER, SELFPAY | PROVIDERS: PCP Nurse Practitioner Family; Referring Provider Nurse Practitioner Family; Visit Provider Student in an Organized Health Care Education/Training Program | DX: M67.442 Ganglion, left hand (principal); E11.9 Type 2 diabetes mellitus without complications; I42.9 Cardiomyopathy, unspecified; Z79.01 Long term (current) use of anticoagulants | CPT/HCPCS: 99213 ==

== ENCOUNTER 2024-08-06 07:43 | Day surgery (SDC) | payer OTHER, SELFPAY ==
--- NOTE | 2024-08-06 07:26 | W.PM.DSUDISC ---
Date of service: 08/06/24 Discharge Plan Disposition Patient Disposition: Home Condition: Good Discharge Details Reason For Visit: LIF Cyst Excision Attending Provider: Wes Ryan Primary Care Provider: Renzo Castano Home Meds and New Rx's Prescriptions: Continued (DME) blood-glucose meter [OneTouch Ultra2 Meter] [facility] [place] See Rx Instructions .Route Qty: 1 2RF Rx Instructions: Twice daily magnesium hydroxide 400 mg (170 mg magnesium) tablet,chewable 400 mg PO DAILY Qty: 90 3RF dapsone 25 mg tablet 50 mg PO BID Qty: 240 3RF baclofen 10 mg tablet 20 mg PO HS Qty: 90 3RF ciclopirox 0.77 % suspension 1 applic topical DAILY 42 Days Qty: 60 2RF gabapentin 300 mg capsule 300 mg PO TID Qty: 270 3RF omeprazole 40 mg capsule,delayed release(DR/EC) 40 mg PO HS Qty: 90 3RF amitriptyline 25 mg tablet 25 mg PO QHS Qty: 90 3RF ibuprofen [Motrin IB] 200 mg capsule 200 mg PO Q6H PRN Patient Comments: Started 03/25/24 independently fluticasone propion-salmeterol [Advair Diskus] 250-50 mcg/dose blister with device 1 inh inhalation BID Qty: 60 3RF ferrous sulfate 325 mg (65 mg iron) tablet 325 mg PO DAILY Qty: 90 3RF metformin 1,000 mg tablet 1,000 mg PO BID Qty: 180 4RF Elbow Sleeve 1 DAILY Qty: 1 0RF Rx Instructions: Dx: Left ulnar neuropathy hydrocortisone [Anti-Itch (HC)] 1 % cream 1 applic topical BID PRN (DME) blood sugar diagnostic Strip 1 ea Miscellaneous BID Qty: 200 5RF Rx Instructions: Twice a day testing (DME) lancets [OneTouch Delica Plus Lancet] 33 gauge [facility] [place] See Rx Instructions .ROUTE .COMPLEX Qty: 100 4RF Dose Instruction: USE ONCE DAILY Rx Instructions: USE ONCE DAILY warfarin 5 mg tablet 5 mg PO QPM Qty: 90 3RF Protocol: Dose Management Condition: Sunday Dose/Route: 2.5 mg Instruction: 0.5 x 5 mg tablets Condition: Sunday Dose/Route: 2.5 mg Instruction: 0.5 x 5 mg tablets Condition: Sunday Dose/Route: 2.5 mg Instruction: 0.5 x 5 mg tablets Condition: Sunday Dose/Route: 5 mg Instruction: 1 x 5 mg tablet Condition: Dose/Route: 2.5 mg Instruction: 0.5 x 5 mg tablets Condition: Sunday Dose/Route: 2.5 mg Instruction: 0.5 x 5 mg tablets Condition: Sunday Dose/Route: 2.5 mg Instruction: 0.5 x 5 mg tablets Protocol Text: Adjustment Start Date: Sunday07/23/24 INR Value: 2.4 INR Date: 07/23/24 Recheck Date: 08/06/24 bumetanide 2 mg tablet 2 mg PO DAILY Qty: 30 3RF hydrocodone-acetaminophen 10-325 mg tablet 1 tab PO Q4H MDD 6 tabs Qty: 168 0RF lorazepam [Ativan] 0.5 mg tablet 0.5 mg PO DAILY PRN (Reason: anxiety) Qty: 28 0RF Discharge Instructions Additional Instructions: Cyst Excision Discharge Instructions Activity: You should keep the hand elevated as much as possible for the first few days. You may use the other fingers as tolerated but avoid trying to do too much too soon. Dressing/Cast: You may remove your dressing after two days and get the incision wet. You may place a Band-Aid over the incision if desired. Medications: - You should take Tylenol and Ibuprofen for pain control. - You may apply ice over the finger. Follow-up: 7-10 days Referrals: Wes Ryan MD [ [facility] STAFF PHYSICIAN] - Activity:: Activity as Tolerated Remove Dressings/Wound Care:: 48 hours Shower/Bathe:: 48 hours Diet:: As Tolerated Discharge Orders Discharge Orders: Discharge Order (Routine); Ordered 08/06/24 Ordered By: Omid Rivas DS: Diagnosis Discharge Diagnosis (1) Ganglion cyst of finger: Status: Acute
[2024-08-06 08:05] VITALS: BP 137/99; PULSE 94; RESP 20; TEMP 36.3; O2SAT 94
[2024-08-06 08:59] LABS: INR 2.9 (0.9-1.1); Prothrombin Time 26.3 sec (9.1-11.1)
[2024-08-06] MEDS: Sodium Bicarbonate 50 MEQ/50 ML VIAL (09:00)
[2024-08-06] MEDS: Lidocaine 1% Multi-Dose W/EPI 1/100,000 50 ML VIAL (09:00)
--- NOTE | 2024-08-06 09:12 | SKI_PTH ---
PATIENT: Janna Junior LOC: [facility] U#:[id number] AGE/SX: 68/F ROOM: RE08/06/[address]: Wes Ryan MD : [id number] BED: DIS: 08/06/2024 SPEC #: [id number] RECD: 08/06/24 12:56 STATUS: SHAINA REQ #: [id number] TELLO: 08/06/24 09:[address]: Wes Ryan DEPT: Surgical Specimen RECD BY: Colette Bullock ENTERED: 08/06/24 12:58 SP TYPE: LANDY FRIAS DR: Renzo Castano, LUCI Tissues: 1 - SKIN BIOPSY(SHAVE/PUNCH) Procedures: GROSS AND MICRO LEVEL 3 Comments: [id number]
[2024-08-06 09:31] VITALS: BP 133/93; PULSE 86; RESP 18; TEMP 36.3; O2SAT 93
--- NOTE | 2024-08-06 09:31 | ROE_ITS ---
Operative Note Operative Note PRE-OP DIAGNOSIS: Left Index Finger PIP Mass POST-OP DIAGNOSIS: same PROCEDURE: Excision of Mass - Left Index Finger PIP joint SURGEON: Wes Ryan ANESTHESIA TYPE: Local By Surgeon Refer to Anesthesia Record ESTIMATED BLOOD LOSS: 0 PATHOLOGY: none sent TOURNIQUET TIME: 10 COMPLICATIONS: None Patient was transported to: same day Patient's condition: stable Indications: I have seen Janna in clinic for symptoms of a mass about the left index finger PIP joint, likely cyst. The mass persisted and caused pain to direct contact and with use. The symptoms had not responded to conservative measures. I discussed cyst excision with the patient. I reviewed the risks of the procedure to include, but not limited to, bleeding, infection, pain, stiffness, recur rence, damage to nerves or vessels. Despite these risks, the patient elected to proceed. Findings: There is prominence of the PIP joint but there is actually no subcutaneous cyst. The capsule the PIP joint was entered where there was abundant tissue which appeared to be hypertrophic synovium. This extra tissue was resected and sent to pathology. Procedure Description: Janna was greeted in the preoperative holding area where the correct side was identified and marked. The consent was reviewed with the patient and signed. All questions were answered. She was taken back to the operating room. The patient was placed into the supine position on the operating room table with the left arm on an arm board. All bony prominences were well padded. No prophylactic antibiotics were administered since this was a clean, elective hand surgical case. The left arm was then prepped with Chloraprep and draped in a standard fashion with stockinette and extremity drape. A timeout to confirm correct identity, side and site, procedure, allergies, anesthesia, and medical concerns was performed. A digital block was then performed using 1% lidocaine with epinephrine and buffered with sodium bicarbonate. This was allowed time to set up completely and was tested before proceeding with the case. The index finger was exsanguinated with manual pressure and a [place] drain was used to create a finger tourniquet. A curvilinear incision was then made overlying the dorsal aspect of the PIP joint, biased radially. This was taken down to the skin only. Deeper dissection is carried through with a tenotomy scissor. There was prominence of the PIP joint capsule which aligned with the previously noted mass areas of the finger. However, they were not subcutaneous. The capsule was incised and there was hypertrophic tissue seen underneath which appeared to be normal synovium. However, it was quite voluminous in this area. There is 2 areas of hypertrophic synovium which was prominent radial and ulnar to the central slip of the extensor tendon. I resected this tissue and sent some some pathology. The joint was inspected and a synovectomy was performed of any residual tissue within the joint surface. The joint and the wound was irrigated. There is no significant remnant tissue appreciable. The split in the capsule was then reapproximated with a #3-0 Vicryl. The skin was then closed using a #4-0 nylon in interrupted fashion. The finger was dressed with Xeroform, 4 x 4, conform dressing. The patient tolerated the procedure well and was returned to the Same Day Surgery area in a stable condition suffering no known complication. Date of Procedure: 08/06/24
== END 2024-08-06 09:55 | disposition home or self-care (01) ==
LOC: SUR 07:43
PROVIDERS: PCP Nurse Practitioner Family; Visit Provider Student in an Organized Health Care Education/Training Program
PROC: (CPT 26160; principal; 2024-08-06 09:15)
DX: M67.442 Ganglion, left hand (principal); Z79.01 Long term (current) use of anticoagulants; E11.22 Type 2 diabetes mellitus with diabetic chronic kidney disease; N18.30 Chronic kidney disease, stage 3 unspecified
CPT/HCPCS: 26160; 36415; 85610; 88304; 88305; J2004

== ENCOUNTER → 2024-08-19 08:19 | Outpatient (BNVA) | payer OTHER, SELFPAY | PROVIDERS: PCP Nurse Practitioner Family; Referring Provider Nurse Practitioner Family | DX: Z47.89 Encounter for other orthopedic aftercare (principal); R60.0 Localized edema | CPT/HCPCS: 99024 ==

== ENCOUNTER 2024-08-19 13:22 | Outpatient (CLI) | payer OTHER, SELFPAY ==
[2024-08-19 09:26] LABS: Lactate 1.4 mmol/L (0.6-1.4)
[2024-08-19 10:12] LABS: ALT 18 U/L (14-59); AST 26 U/L (15-37); Albumin 2.7 g/dL (3.4-5.0); Alkaline Phosphatase 277 U/L (46-116); BUN 29 mg/dL (7-18); Bilirubin, Total 0.45 mg/dL (0.2-1.0); CO2 31.4 mmol/L (21.0-32.0); CREATININE 1.8 mg/dL (0.55-1.02); Calcium 9.4 mg/dL (8.5-10.1); Glucose 109 mg/dL (74-106); Total Protein 7.8 g/dL (6.4-8.2)
[2024-08-19 10:18] LABS: Anion Gap 4.6 mmol/L (3-11); Chloride 90 mmol/L (98-107); Magnesium 1.6 mg/dL (1.8-2.4); NT-proBNP 14046 pg/mL (<300); PHOSPHORUS 3.5 mg/dL (2.6-4.7); Potassium 5.2 mmol/L (3.5-5.1)
[2024-08-19 10:19] LABS: Sodium 126 mmol/L (136-145)
[2024-08-19 11:51] LABS: INR 2.1 (0.9-1.1); Prothrombin Time 19.7 sec (9.1-11.1)
== END 2024-08-19 13:23 | disposition home or self-care (01) ==
PROVIDERS: PCP Nurse Practitioner Family; Visit Provider Internal Medicine
DX: I42.9 Cardiomyopathy, unspecified (principal); N18.32 Chronic kidney disease, stage 3b; Z86.711 Personal history of pulmonary embolism
CPT/HCPCS: 36415; 80053; 83605; 83735; 83880; 84100; 85610

== ENCOUNTER 2024-08-26 16:25 | Outpatient (CLI) | payer MEDICARE, MEDICAID, SELFPAY ==
--- NOTE | 2024-08-26 13:24 | DI.RAD_ITS ---
Exam(s) XR RIBS ONLY RT EXAM: XR RIBS ONLY RT CLINICAL HISTORY: Rib pain on rt side, pleurodynia, R07.81 TECHNIQUE: 2D digital imaging was performed.Four images were obtained. COMPARISON: CR XR CHEST 2V PA LATERAL from 11/24/2021 CR XR SHOULDER RT COMPLETE 2+V from 12/04/2023 FINDINGS: LUNGS: The visualized lungs are clear. PLEURAL SPACE: No right pleural effusion or right pneumothorax. BONE:Degenerative changes are seen in the spine. There also appear to be several compression deformi ties in the thoracic spine. RIGHT RIBS: There is an acute minimally displaced fracture involving the anterolateral aspect of the right 9th rib and the right 10th rib. There is also deformity involving the lateral aspect of the ri ght 5th rib suspicious for fracture. OTHER FINDINGS:Surgical clips are seen in the right upper quadrant of the abdomen suggesting prior ch olecystectomy. There is a vascular stent in the pelvis. IMPRESSION: 1. Acute fractures involving the right 9th and 10th ribs and a question of a fracture involving the r ight 5th rib. DATA REPOSITORY: RADIATION DOSE DELIVERED:
== END 2024-08-26 16:45 ==
PROVIDERS: PCP Nurse Practitioner Family; Visit Provider Anesthesiology Pain Medicine
DX: R07.81 Pleurodynia (principal)
CPT/HCPCS: 71100

== ENCOUNTER 2024-09-18 03:03 | Outpatient (CLI) | payer MEDICARE, SELFPAY ==
--- NOTE | 2024-09-18 | DI.RAD_ITS ---
Exam(s) XR SACRUM COCCYX EXAM: XR SACRUM COCCYX CLINICAL HISTORY: Pain in the coccyx, M53.3; popping sensation and severe pain in tailbone. TECHNIQUE: 2D digital imaging was performed. COMPARISON: CT CT RENAL COLIC WO from 01/17/[address] LOWER EXTREMITY LT W from 04/04/2023 FINDINGS: BONES: There is an acute angle to the cortex anteriorly at the proximal coccyx on the lateral view. This was not apparent on the prior examination of the CT scan from 01/17/2022. This may represent an acute fracture. No bony destructive lesion is seen. JOINTS: No dislocation present. SOFT TISSUE: There is again seen a left common iliac vein stent. IMPRESSION: Question of a fracture involving the anterior aspect of the proximal coccyx appreciated on the latera l view. DATA REPOSITORY: RADIATION DOSE DELIVERED:
== END 2024-09-18 03:23 ==
LOC: DI 03:03
PROVIDERS: PCP Nurse Practitioner Family; Visit Provider Internal Medicine Nephrology
DX: M53.3 Sacrococcygeal disorders, not elsewhere classified (principal)
CPT/HCPCS: 36415; 80048; 72220; 85610

== ENCOUNTER 2024-09-18 04:11 | Outpatient (CLI) | payer MEDICARE, SELFPAY ==
[2024-09-18 12:53] LABS: Prothrombin Time 13.3 sec (9.1-11.1)
[2024-09-18 12:55] LABS: INR 1.3 (0.9-1.1)
[2024-09-18 13:31] LABS: Anion Gap 4.9 mmol/L (3-11); BUN 26 mg/dL (7-18); CO2 32.1 mmol/L (21.0-32.0); CREATININE 1.6 mg/dL (0.55-1.02); Calcium 9.3 mg/dL (8.5-10.1); Chloride 98 mmol/L (98-107); Estimated GFR 35.13 (mL/min/1.73m2); Glucose 101 mg/dL (74-106); Potassium 5.5 mmol/L (3.5-5.1); Sodium 135 mmol/L (136-145)
== END 2024-09-18 04:12 | disposition home or self-care (01) ==
LOC: LBO 04:45
PROVIDERS: PCP Nurse Practitioner Family; Visit Provider Internal Medicine Nephrology
DX: Z79.01 Long term (current) use of anticoagulants (principal); Z86.711 Personal history of pulmonary embolism; N18.32 Chronic kidney disease, stage 3b
CPT/HCPCS: 36415; 80048; 85610

== ENCOUNTER 2024-09-22 13:32 | Outpatient (CLI) | payer MEDICARE, SELFPAY ==
--- NOTE | 2024-09-22 13:29 | DI.RAD_ITS ---
Exam(s) XR HAND LT COMPLETE EXAM: XR HAND LT COMPLETE CLINICAL HISTORY: s/p excision of index finger mass. TECHNIQUE: 2D digital imaging was performed. Three views. COMPARISON: CR LEFT THUMB from 01/24/2012 FINDINGS: BONES: No acute fracture is present. No bony destructive lesion is seen. The bones appear osteopeni c. JOINTS: No dislocation present. Advanced degenerative changes of the 1st carpal metacarpal joint. Mild degenerative changes elsewhere. SOFT TISSUE: Normal. No visible mass. No foreign body or abnormal gas collection. IMPRESSION: Advanced degenerative changes 1st carpal metacarpal joint. No specific findings of the index finger. DATA REPOSITORY: RADIATION DOSE DELIVERED:
== END 2024-09-22 13:33 | disposition home or self-care (01) ==
LOC: DIORS 13:33
PROVIDERS: PCP Nurse Practitioner Family; Referring Provider Nurse Practitioner Family; Visit Provider Student in an Organized Health Care Education/Training Program
DX: Z47.89 Encounter for other orthopedic aftercare; R68.89 Other general symptoms and signs
CPT/HCPCS: 99024; 73130

== ENCOUNTER 2024-10-16 02:37 | Outpatient (RCR) | payer MEDICARE, SELFPAY ==
[2024-09-29] MEDS: Normal Saline Flush 10 ML SYR IVP (12:27)
[2024-09-29] MEDS: IRON SUCROSE COMPLEX 300 MG in Normal Saline 250 ML 176.667 MG IVPB (12:27)
[2024-10-08] MEDS: IRON SUCROSE COMPLEX 300 MG in Normal Saline 250 ML 176.667 MG IVPB (12:22)
[2024-10-08] MEDS: Normal Saline Flush 10 ML SYR IVP (12:22)
[2024-10-08 14:55] LABS: INR 1.4 (0.9-1.1); Prothrombin Time 13.8 sec (9.1-11.1)
[2024-10-16] MEDS: Normal Saline Flush 10 ML SYR IVP (12:32)
[2024-10-16] MEDS: IRON SUCROSE COMPLEX 300 MG in Normal Saline 250 ML 176.667 MG IVPB (12:57)
[2024-10-16 13:48] LABS: INR 1.6 (0.9-1.1)
== END 2024-10-17 23:59 | disposition home or self-care (01) ==
LOC: INF 02:37
PROVIDERS: PCP Nurse Practitioner Family; Visit Provider Nurse Practitioner Family
DX: N18.32 Chronic kidney disease, stage 3b (principal); D63.1 Anemia in chronic kidney disease; D50.9 Iron deficiency anemia, unspecified; Z79.01 Long term (current) use of anticoagulants; Z86.711 Personal history of pulmonary embolism
CPT/HCPCS: 36415; 96365; 96366; 85610; J1756

== ENCOUNTER 2024-11-25 16:41 | Inpatient (IN) | payer MEDICARE, SELFPAY ==
[2024-11-25] VITALS (52 sets, daily range): BP systolic 116–178; BP diastolic 32–94; PULSE 58–123; RESP 11–33; TEMP 36.3–37.3; O2SAT 92–99
--- NOTE | 2024-11-25 16:45 | RT.EKG_ITS ---
APPROVED REPORT Exam: Resting ECG Reason for Exam: Chest Pain Patient Location: E HR:69 bpm ECG Measurements Heart Rate 69 AXIS IN 154 P 45 QRSd 79 QRS 4 QT 431 T 101 QTc 482 Conclusion Sinus rhythm...normal P axis, V-rate 60- 99 Anterior infarct, old...Q >40mS, abnormal ST-T, V2-V5 Nonspecific T abnormalities, lateral leads...T <-0.10mV, I aVL V5 V6
[2024-11-25 17:06] LABS: BE (Venous) -9 mmol/L (-2-3); HCO3 (Venous) 18 mmol/L (23-28); Lactate 0.8 mmol/L (<or=2.0); O2 Sat (Venous) 47 %; TCO2 (Venous) 17 mmol/L (24-29); pCO2 (Venous) 37 mmHg (41-51); pH (Venous) 7.29 (7.31-7.41); pO2 (Venous) 28 mmHg
[2024-11-25 17:08] LABS: Abs Immature Grans 0.03 10^3/uL (0.0-0.06); Absolute Basophil Count 0.02 10^3/uL (0.0-0.2); Absolute Eosinophil Count 0.03 10^3/uL (0.0-0.7); Absolute Lymphocyte Count 0.53 10^3/uL (1.2-3.4); Absolute Monocyte Count 0.27 10^3/uL (0.1-0.8); Absolute Neutrophil Count 4.15 10^3/uL (1.2-6.7); Basophils % 0.4 %; Eosinophils % 0.6 %; HCT 26.9 % (36.0-46.0); HGB 8.4 g/dL (11.2-15.7); Immature Grans % 0.6 %; Lymphocytes % 10.5 %; MCH 33.3 pg (27.0-33.0); MCHC 31.2 % (32.0-36.0); MCV 107 fL (80-95); MPV 9.4 fL (8.0-11.0); Monocytes % 5.4 %; Neutrophils % 82.5 %; Platelet Count 163 10^3/uL (130-400); RBC 2.52 10^6/uL (3.93-5.22); RDW 16.2 % (11.7-14.6); RDW-SD 63.9 fL; WBC 5.03 10^3/uL (4.4-10.8)
[2024-11-25] MEDS: Droperidol 5 MG/2 ML VIAL 2.5 MG IVP (17:08)
[2024-11-25] MEDS: Normal Saline 500 ML IV (17:14)
--- NOTE | 2024-11-25 17:15 | ED.GENADUL_ITS ---
Discharge Plan Disposition Patient Disposition: Admit to [facility] Condition: Stable Discharge Details Clinical Impression: N&V (nausea and vomiting) Primary Care Provider: Renzo Castano ED Provider: Santo Hensley [place] Meds and New Rx's Prescriptions: Continued (DME) blood-glucose meter [OneTouch Ultra2 Meter] [facility] [place] See Rx Instructions .Route Qty: 1 2RF Rx Instructions: Twice daily magnesium hydroxide 400 mg (170 mg magnesium) tablet,chewable 400 mg PO DAILY Qty: 90 3RF ciclopirox 0.77 % suspension 1 applic topical DAILY 42 Days Qty: 60 2RF gabapentin 300 mg capsule 300 mg PO TID Qty: 270 3RF clopidogrel [Plavix] 75 mg tablet 75 mg PO DAILY lactulose 20 gram packet 20 g PO DAILY pantoprazole 40 mg tablet,delayed release (DR/EC) 40 mg PO DAILY nitroglycerin 0.4 mg tablet, sublingual 0.4 mg sublingual Q5M PRN Rx Instructions: do not exceed 3 doses per episode ibuprofen [Motrin IB] 200 mg capsule 200 mg PO Q6H PRN Patient Comments: Started 03/25/24 independently fluticasone propion-salmeterol [Advair Diskus] 250-50 mcg/dose blister with device 1 inh inhalation BID Qty: 60 3RF ferrous sulfate 325 mg (65 mg iron) tablet 325 mg PO DAILY Qty: 90 3RF dapsone 25 mg tablet 50 mg PO BID Qty: 240 3RF nystatin 100,000 unit/mL suspension 1 ml PO QID Qty: 473 0RF Rx Instructions: swish and swallow hydrocortisone [Anti-Itch (HC)] 1 % cream 1 applic topical BID PRN (DME) blood sugar diagnostic Strip 1 ea Miscellaneous BID Qty: 200 5RF Rx Instructions: Twice a day testing (DME) lancets [OneTouch Delica Plus Lancet] 33 gauge [facility] [place] Rx Instructions .ROUTE .COMPLEX Qty: 100 4RF Dose Instruction: USE ONCE DAILY Rx Instructions: USE ONCE DAILY bumetanide 2 mg tablet 2 mg PO DAILY Qty: 30 3RF ergocalciferol (vitamin D2) [Vitamin D2] 1,250 mcg (50,000 unit) capsule 1,250 mcg PO QWEEK Patient Comments: Started by [facility] [place] on 09/14/24 lorazepam [Ativan] 0.5 mg tablet 0.5 mg PO DAILY PRN (Reason: anxiety) Qty: 28 0RF Held metformin 1,000 mg tablet 1,000 mg PO BID Qty: 180 4RF Hold Instructions: Resume on 12/01/24. talk with your pcp if they want you to continue this or not Discontinued baclofen 10 mg tablet 20 mg PO HS Qty: 90 3RF omeprazole 40 mg capsule,delayed release(DR/EC) 40 mg PO HS Qty: 90 3RF amitriptyline 25 mg tablet 25 mg PO QHS Qty: 90 3RF hydrocodone-acetaminophen 10-325 mg tablet 1 tab PO Q4H MDD 6 tabs Qty: 168 0RF No Action Elbow Sleeve 1 DAILY Qty: 1 0RF Rx Instructions: Dx: Left ulnar neuropathy warfarin 5 mg tablet 5 mg PO QPM Qty: 90 3RF Protocol: Dose Management Condition: Sunday Dose/Route: 2.5 mg Instruction: 0.5 x 5 mg tablets Condition: Sunday Dose/Route: 5 mg Instruction: 1 x 5 mg tablet Condition: Sunday Dose/Route: 2.5 mg Instruction: 0.5 x 5 mg tablets Condition: Sunday Dose/Route: 2.5 mg Instruction: 0.5 x 5 mg tablets Condition: Dose/Route: 5 mg Instruction: 1 x 5 mg tablet Condition: Sunday Dose/Route: 2.5 mg Instruction: 0.5 x 5 mg tablets Condition: Sunday Dose/Route: 5 mg Instruction: 1 x 5 mg tablet Protocol Text: Adjustment Start Date: Sunday10/08/24 INR Value: 1.4 INR Date: 10/08/24 Recheck Date: 10/15/24 HPI General Mode of arrival: EMS . Date/Time Provider Initiated Documentation: 11/25/24 16:49 . Limitations to Documentation: no limitations . Information obtained by: patient . History of Present Illness 68 year old F presents to the emergency department with the chief complaint of n/v, described as moderate, Quality is described as aching, Patient started experiencing this hour(s) (1) and it has been constant. No relieving factors improve symptom(s), No exacerbating factors reported . Patient notes denies chest pain, fever/chills and shortness of breath. Patient did receive the following treatments prior to arrival, none Related Data Home Medications ?Medication ?Instructions ?Recorded ?Confirmed hydrocortisone 1 % topical cream 1 applic topical BID PRN 05/30/23 10/03/24 (Anti-Itch (hydrocortisone)) blood-glucose meter (AOBiomeuch #1 ea 06/15/23 11/25/24 Ultra2 Meter) blood sugar diagnostic #200 strips 07/31/23 11/25/24 magnesium hydroxide 400 mg (170 mg 400 mg PO DAILY #90 tabs 12/06/23 11/25/24 magnesium) chewable tablet lancets 33 gauge (FanXchangeTouch Delica #100 ea 02/04/24 11/25/24 Plus Lancet) ibuprofen 200 mg capsule (Motrin 200 mg PO Q6H PRN 03/25/24 10/03/24 IB) ferrous sulfate 325 mg (65 mg 325 mg PO DAILY #90 tabs 03/26/24 10/03/24 iron) tablet fluticasone 250 mcg-salmeterol 50 1 inh inhalation BID #60 ea 04/02/24 10/03/24 mcg/dose blistr powdr for inhalation (Advair Diskus) metformin 1,000 mg tablet 1,000 mg PO BID #180 tab-caps 05/22/24 11/25/24 warfarin 5 mg tablet 5 mg PO QPM #90 tabs 06/26/24 11/25/24 bumetanide 2 mg tablet 2 mg PO DAILY #30 tabs 06/30/24 11/25/24 ciclopirox 0.77 % topical 1 applic topical DAILY 6 weeks #60 07/23/24 11/25/24 suspension mL gabapentin 300 mg capsule 300 mg PO TID #270 caps 07/23/24 11/25/24 dapsone 25 mg tablet 50 mg (2 x 25 mg) PO BID #240 08/07/24 11/25/24 tab-caps nystatin 100,000 unit/mL oral 1 ml PO QID #473 mL 08/07/24 10/03/24 suspension ergocalciferol (vitamin D2) 1,250 1,250 mcg PO QWEEK 09/18/24 10/03/24 mcg (50,000 unit) capsule (Vitamin D2) lorazepam 0.5 mg tablet (Ativan) 0.5 mg PO DAILY PRN anxiety #28 11/18/24 11/25/24 tabs clopidogrel 75 mg tablet (Plavix) 75 mg PO DAILY 11/25/24 11/25/24 lactulose 20 gram oral packet 20 g PO DAILY 11/25/24 11/25/24 nitroglycerin 0.4 mg sublingual 0.4 mg sublingual Q5M PRN 11/25/24 11/25/24 tablet pantoprazole 40 mg tablet,delayed 40 mg PO DAILY 11/25/24 11/25/24 release Previous Rx's ?Medication ?Instructions ?Recorded blood-glucose meter (Gainsight #1 ea 06/15/23 Ultra2 Meter) blood sugar diagnostic #200 strips 07/31/23 magnesium hydroxide 400 mg (170 mg 400 mg PO DAILY #90 tabs 12/06/23 magnesium) chewable tablet lancets 33 gauge (Gainsight Delica #100 ea 02/04/24 Plus Lancet) ferrous sulfate 325 mg (65 mg 325 mg PO DAILY #90 tabs 03/26/24 iron) tablet fluticasone 250 mcg-salmeterol 50 1 inh inhalation BID #60 ea 04/02/24 mcg/dose blistr powdr for inhalation (Advair Diskus) metformin 1,000 mg tablet 1,000 mg PO BID #180 tab-caps 05/22/24 warfarin 5 mg tablet 5 mg PO QPM #90 tabs 06/26/24 bumetanide 2 mg tablet 2 mg PO DAILY #30 tabs 06/30/24 ciclopirox 0.77 % topical 1 applic topical DAILY 6 weeks #60 07/23/24 suspension mL gabapentin 300 mg capsule 300 mg PO TID #270 caps 07/23/24 dapsone 25 mg tablet 50 mg (2 x 25 mg) PO BID #240 08/07/24 tab-caps nystatin 100,000 unit/mL oral 1 ml PO QID #473 mL 08/07/24 suspension lorazepam 0.5 mg tablet (Ativan) 0.5 mg PO DAILY PRN anxiety #28 11/18/24 tabs Allergies Allergy/AdvReac Type Severity Reaction Status Date / Time rizatriptan benzoate (From Allergy Severe tongue Verified 10/03/24 13:47 Maxalt) swelling, diff.swallowing per pt azithromycin Allergy Intermediate SOB-pt Verified 10/03/24 13:47 reported sulfamethoxazole Allergy Unknown Other (See Verified 10/03/24 13:47 Comment) trimethoprim (From Bactrim) Allergy Unknown Other (See Verified 10/03/24 13:47 Comment) adhesive Allergy RASH Verified 10/03/24 13:47 wheat Allergy SKIN RASH Verified 10/03/24 13:47 sertraline AdvReac Intermediate sweating Verified 10/03/24 13:47 torsemide AdvReac Intermediate Other (See Verified 10/03/24 13:47 Comment) tramadol AdvReac Intermediate Nausea Verified 10/03/24 13:47 venlafaxine AdvReac Intermediate sweating,fa Verified 10/03/24 13:47 tigue,malai se amoxicillin AdvReac GI UPSET Verified 10/03/24 13:47 ondansetron (From Zofran) AdvReac can taste Verified 10/03/24 13:47 pill for days...per pt promethazine AdvReac jitters Verified 10/03/24 13:47 General Stated Complaint: Nausea/Vomit/Diar JOSE JUAN: 2 Review of Systems All systems reviewed & are unremarkable except as noted in HPI and below Constitutional Constitutional: Denies chills, Denies fever(s) and Denies weakness Cardiovascular Cardiovascular: Denies chest pain and Denies dyspnea Respiratory Respiratory: Denies cough and Denies dyspnea Gastrointestinal Gastrointestinal: Denies abdominal pain, Reports nausea and Reports vomiting Neurologic Neurologic: Denies weakness Exam Const General: no acute distress Orientation: alert [facility] Head: normal to inspection Ears: external ears normal General nose exam: external nose normal Mouth: moist mucous membranes Eyes General: appearance normal, both eyes and all related structures Neck Neck: normal visual inspection Resp Effort & Inspection: normal respiratory effort and able to speak in complete sentences Auscultation: clear to auscultation bilaterally Cardio Rate: regular rate GI Palpation: soft and nontender Skin General skin exam: no rashes or lesions noted Neuro General: patient alert and patient oriented x3 Psych Mental Status: mental status grossly normal Course Vital Signs Vital signs: Vital Signs Pulse 67 11/25/24 16:50 Respiratory Rate 15 11/25/24 16:50 Blood Pressure 159/71 H 11/25/24 16:50 Temperature 37.3 C 11/25/24 16:52 Temperature Source Oral 11/25/24 16:52 Pulse 81 11/25/24 17:01 Pulse 74 11/25/24 17:01 Respiratory Rate 15 11/25/24 17:01 Blood Pressure 153/41 H 11/25/24 17:01 Blood Pressure Mean 67 11/25/24 17:01 Pulse Oximetry 96 11/25/24 17:01 Oxygen Delivery Method Room Air 11/25/24 16:52 Oxygen Flow Rate 0 11/25/24 16:52 Lab/Test Results Lab/Test Results: Laboratory Tests Range/Units 11/25/24 16:50 VBG pH (7.31-7.41) 7.29 L VBG pCO2 (41-51) mmHg 37 L VBG pO2 mmHg 28 VBG HCO3 (23-28) mmol/L 18 L VBG Total CO2 (24-29) mmol/L 17 L VBG O2 Saturation % 47 VBG Base Excess (-2-3) mmol/L -9 L VBG Lactate (<or=2.0) mmol/L 0.8 Medical Decision Making 68-year-old female who was at [facility] last month and had a stent placed and shortly after suffered cardiac arrest requiring CPR, she had prolonged hospitalization after this including a right groin infection requiring a wound VAC where she had the cath site. She was discharged on November 23 2 days ago and is feeling well until tonight when she took metformin without acting on her stomach and then shortly after started vomiting. She says she has some broken ribs from having CPR done but has not have any new chest pain, denies any difficulty breathing, no abdominal pain. Her wound site in her right groin has no erythema surrounding it. She is moving all extremities well. Denies any headache. I suspect it could be side effects related to her metformin but given her recent history I will check CBC, CMP, lactate, procalcitonin and troponins. Given her lack of abdominal tenderness do not feel acute imaging of her abd omen is indicated Labs only show mild hypomagnesemia of 1.5 which was repleted IV and slight elevation in her INR.. She had continued nausea so I gave her Compazine which she states she is tolerated the past and also Ativan which resolved her nausea. Delta troponin negative. Discussed results with patient and she initially wanted to try and go home but after she tried to get up to start getting ready for d/c she had recurrent n/v. She still has no abdominal tenderness, no chest pain and no headaches. Will discuss with hospitalist about possible admission for intractable n/v Differential Diagnosis Differential Diagnosis: Side effect of metformin, gastroenteritis Medical Records Medical records reviewed: Yes I reviewed the patient's medical records. Lab Data Lab results reviewed: Yes I reviewed the patient's lab results. ECG Data Attestation: I personally reviewed and interpreted this ECG (s) as follows: Prior ECG tracings: available for review Interpretation: sinus rate of 69 pr 154 no stemi Quality:SDOH Health Related Social Needs: No Data to Display PFSH All Active Problems (Updated 11/25/24 @ 21:35 by Jerman Arriaga) Intractable vomiting (Acute) N&V (nausea and vomiting) (Acute) H/O fasciotomy (Acute) PAD (peripheral artery disease) (Acute) Ischemic cardiomyopathy (Acute) Severe protein-calorie malnutrition (Acute) CAD (coronary artery disease) (Chronic) Cardiac arrest (Acute) Iron deficiency anemia (Acute) Fracture, thoracic vertebra, compression (Acute) Rib pain on right side (Acute) Chronic pain syndrome (Chronic) History of pulmonary embolus (PE) (Acute 05/15/13) Finger mass, left (Acute) s/p Left index finger PIP joint cyst excision 08/06/24 Stage 3 chronic kidney disease (Acute) Ganglion cyst of finger (Acute) Cardiomyopathy (Acute) Anticoagulation goal of INR 2 to 3 (Acute) Ganglion cyst (Acute) Bilateral lower extremity edema (Acute) Compression fracture of T9 vertebra (Acute) Crackling sound in left ear (Acute) Nasal vestibulitis (Acute) Tinnitus (Acute) Rotator cuff tear, right (Acute) DEPO MEDROL 12/04/23 Right shoulder pain (Acute) Ocular migraine (Acute) Medication overuse headache (Acute) Migraine headache with aura (Acute) Chronic headache (Acute) Chronic pain syndrome (Chronic 05/23/13) Diabetes (Chronic 12/01/13) Chronic anticoagulation (Acute) Xerostomia (Acute) Angular cheilitis with candidiasis (Acute) Medical History Skin lesion Hyponatremia Left hand pain Seborrheic dermatitis Hypomagnesemia Myositis associated antibody positive Per [facility] Generalized weakness Candidiasis of mouth Gait abnormality Calcinosis cutis Other osteoporosis with current pathological fracture, left ankle and foot, sequela Right arm pain Left foot pain Edema of left foot Thoracic back pain Mid back pain Chest pain Right foot pain Gout Encounter for immunization Abnormal LFTs (liver function tests) Chronic anemia Pt refuses colonoscopy. Feels related to Celiac Disease Sore throat Hoarseness of voice Leg pain Elevated blood pressure reading Fatigue Epigastric pain Zoster Corns Abnormal liver function Carpal tunnel syndrome Corns and callus History of dysmenorrhea (07/19/95) Elevation of level of transaminase and lactic acid dehydrogenase (LDH) Foot pain Plantar fasciitis Pulmonary embolism Microcytic anemia Dyspnea on effort Chronic cough Protein C deficiency Chronic pain in left foot Venous insufficiency of both lower extremities (08/03/15) Ulnar neuropathy of left upper extremity (03/21/16) Spinal stenosis, lumbar region with neurogenic claudication (08/17/15) Smoker Peripheral vascular disease (07/28/14) Stable RAFI 12/2022 at [facility] [place] Obesity Nocturnal leg cramps (07/04/16) Migraine Low back pain Irritable bowel syndrome with diarrhea (06/26/17) Hyperlipidemia Gastroesophageal reflux disease Diabetic peripheral neuropathy (08/03/15) OPTICAL EXPRESSIONS; 08/31/15; LEFT EYE 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 Carpal tunnel syndrome of right wrist (08/03/15) Bursitis of right shoulder (07/04/16) Nausea & vomiting GERD (gastroesophageal reflux disease) Diabetes mellitus Pulmonary embolism DVT (deep venous thrombosis) Surgical History History of angioplasty of peripheral vessel left iliac vein stent (10/01/2009) [facility] [place] diameter 18mm, length 60mm, lot [id number] History of carpal tunnel surgery of left wrist Hx of cholecystectomy History of section section Family History Mother Personal history of malignant neoplasm BONE,THYROID,BACK,LIVER,BLADDER,BREAST Father Asthma Sister No problems noted. Brother No problems noted. Social History Smoking/Tobacco Use Status: Current every day Tobacco Type: cigarettes Smoking risk assessment performed?: Yes Alcohol Intake: never Drug use: Never Substance use type: does not use Household members: spouse Housing: house What type of physical activity do you participate in: none Do you feel safe at home: Yes Do you feel safe in your relationship?: Yes Additional Social history: Dtr at side
[2024-11-25 17:24] LABS: PTT Activated 44.4 sec (20.6-30.2); Prothrombin Time 39.2 sec (9.1-11.1)
[2024-11-25 17:26] LABS: Diff Comment RBC Morph Reviewed
[2024-11-25 17:27] LABS: Anisocytosis 1+; Macrocytosis 2+
[2024-11-25 17:40] LABS: Procalcitonin 0.12 ng/mL
[2024-11-25 17:41] LABS: INR 4.3 (0.9-1.1)
[2024-11-25 17:46] LABS: ALT 25 U/L (14-59); AST 29 U/L (15-37); Albumin 2.9 g/dL (3.4-5.0); Alkaline Phosphatase 348 U/L (46-116); Anion Gap 14.4 mmol/L (3-11); BUN 29 mg/dL (7-18); Bilirubin, Total 0.5 mg/dL (0.2-1.0); CO2 18.6 mmol/L (21.0-32.0); CREATININE 1.5 mg/dL (0.55-1.02); Calcium 9.5 mg/dL (8.5-10.1); Chloride 105 mmol/L (98-107); Estimated GFR 37.96 (mL/min/1.73m2); Glucose 98 mg/dL (74-106); Magnesium 1.5 mg/dL (1.8-2.4); NT-proBNP 6760 pg/mL (<300); Potassium 4.8 mmol/L (3.5-5.1); Sodium 138 mmol/L (136-145); TSH (W/Ref FT4) 8.72 uIU/mL (0.36-3.74); Total Protein 8.2 g/dL (6.4-8.2); Troponin I 39 ng/L (<or=51)
[2024-11-25] MEDS: Prochlorperazine 10 MG/2 ML VIAL 5 MG IVP (18:25)
[2024-11-25] MEDS: LORazepam 2 MG/ML VIAL 1 MG IVP (18:25)
[2024-11-25] MEDS: MAGNESIUM SULFATE 2 GM/50 ML BAG IV_INF (18:27)
[2024-11-25 18:48] LABS: Troponin I 39 ng/L (<or=51)
[2024-11-25 19:24] LABS: FREE T4 0.97 ng/dL (0.76-1.46)
[2024-11-25 20:55] LABS: Troponin I 38 ng/L (<or=51)
--- NOTE | 2024-11-25 21:31 | HPE_ITS ---
Date of service: 11/25/24 Time of Service: 23:05 Assessment and Plan Assessment and plan (1) Intractable vomiting: Status: Acute Assessment and plan: Unclear etiology. Metformin on empty stomach was trigger but this was not new medication. Also has been having loose stools, very likely this is an acute viral gastroenteritis. With chills, get stool pathogen screen and c diff if she is having diarrhea here. Allergies include ondansatron and promethazone. Proclorperazine seems to have worked the best so far, will continue this She appears dehydrated, no urine output yet, increase rate on this bag of NS then run glucose containing LR + KCl. (2) CAD (coronary artery disease): Status: Chronic Assessment and plan: S/p stent within the month complicated by post-PCI arrest. On DAPT. No current angina, troponins and EKG reassuring. Monitor on telemetry (3) Iron deficiency anemia: Status: Acute Assessment and plan: Chronic, continue iron when taking po well. (4) Stage 3 chronic kidney disease: Status: Acute Assessment and plan: Cr appears to be at her baseline. Monitor with ongoing vomiting. (5) History of pulmonary embolus (PE): Status: Acute Assessment and plan: H/o DVT and PE associated with protein C deficiency. On warfarin with INR goal 2-3. Holding warfarin as above goal. Follow daily. (6) Diabetes: Status: Chronic Assessment and plan: history of diabetes but all recent A1c results are <5%. Diabetes in remission. No reason to monitor blood glucose. She may not need that metformin (7) Smoker: Assessment and plan: NRT prn, but doesn't tolerate adhesive History of Present Illness History of Present Illness Chief Complaint: vomiting Narrative: This is a 67 year old female with past medical history of CKD3, remote left iliac stent on warfarin, chronic pain, and recent admission in October to [facility] for a PCI/stent complicated by cardiac arrest/CPR, with prolonged hospitalization including right groin infection requiring wound vac at catheteriziation site who is presenting with acute nausea and vomting. She had gone home from [facility] 2 days ago on November 23 and had felt well. On the evening of admission she took her metformin on an empty stomach and soon after felt severe nausea and started to vomit. She hasn't stopped since. She has also had some loose stool today. She was taking senna for constipation, stopped today but she was still having loose stools. No abdominal pain. Shehas some chest wall pain were she broke ribs from CPR but no other chest pain. No SOB. No sore throat or runny nose. She has a little cough that is not new. No headache. She initially felt better in ED after compazine and lorazepam but when she tried to leave got severe nausea and vomiting again. She hasnt' eaten since this started but she would like to drink Review of Systems All systems reviewed & are unremarkable except as noted in HPI and below Constitutional Constitutional: Reports chills, Reports fatigue and Denies fever(s) Integumentary/Breasts Skin/Breast: Denies rash Comments: wound of groin and right leg healing, no drainage. Endocrine Endocrine: Reports fatigue PFSH All Active Problems Intractable vomiting (Acute) N&V (nausea and vomiting) (Acute) H/O fasciotomy (Acute) PAD (peripheral artery disease) (Acute) Ischemic cardiomyopathy (Acute) Severe protein-calorie malnutrition (Acute) CAD (coronary artery disease) (Chronic) Cardiac arrest (Acute) Iron deficiency anemia (Acute) Fracture, thoracic vertebra, compression (Acute) Rib pain on right side (Acute) Chronic pain syndrome (Chronic) Finger mass, left (Acute) s/p Left index finger PIP joint cyst excision 08/06/24 Stage 3 chronic kidney disease (Acute) Ganglion cyst of finger (Acute) Cardiomyopathy (Acute) Anticoagulation goal of INR 2 to 3 (Acute) Ganglion cyst (Acute) Bilateral lower extremity edema (Acute) Compression fracture of T9 vertebra (Acute) Crackling sound in left ear (Acute) Nasal vestibulitis (Acute) Tinnitus (Acute) Rotator cuff tear, right (Acute) DEPO MEDROL 12/04/23 Right shoulder pain (Acute) Ocular migraine (Acute) Medication overuse headache (Acute) Migraine headache with aura (Acute) Chronic headache (Acute) Xerostomia (Acute) Angular cheilitis with candidiasis (Acute) Chronic anticoagulation (Acute) History of pulmonary embolus (PE) (Acute 05/15/13) Diabetes (Chronic 12/01/13) Chronic pain syndrome (Chronic 05/23/13) Medical History Skin lesion Hyponatremia Left hand pain Seborrheic dermatitis Hypomagnesemia Myositis associated antibody positive Per [facility] Generalized weakness Candidiasis of mouth Gait abnormality Calcinosis cutis Other osteoporosis with current pathological fracture, left ankle and foot, sequela Right arm pain Left foot pain Edema of left foot Thoracic back pain Mid back pain Chest pain Right foot pain Gout Encounter for immunization Abnormal LFTs (liver function tests) Chronic anemia Pt refuses colonoscopy. Feels related to Celiac Disease Sore throat Hoarseness of voice Leg pain Elevated blood pressure reading Fatigue Epigastric pain Nausea & vomiting Zoster Corns Abnormal liver function Carpal tunnel syndrome Corns and callus History of dysmenorrhea (07/19/95) Elevation of level of transaminase and lactic acid dehydrogenase (LDH) Foot pain Plantar fasciitis Pulmonary embolism Microcytic anemia Dyspnea on effort Chronic cough Protein C deficiency Chronic pain in left foot Venous insufficiency of both lower extremities (08/03/15) Ulnar neuropathy of left upper extremity (03/21/16) Spinal stenosis, lumbar region with neurogenic claudication (08/17/15) Smoker Peripheral vascular disease (07/28/14) [place] [facility] [place]esity Nocturnal leg cramps (07/04/16) Migraine Low back pain Irritable bowel syndrome with diarrhea (06/26/17) Hyperlipidemia Gastroesophageal reflux disease Diabetic peripheral neuropathy (08/03/15) OPTICAL EXPRESSIONS; 08/31/15; LEFT EYE 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 Carpal tunnel syndrome of right wrist (08/03/15) Bursitis of right shoulder (07/04/16) GERD (gastroesophageal reflux disease) Diabetes mellitus Pulmonary embolism DVT (deep venous thrombosis) Surgical History History of angioplasty of peripheral vessel left iliac vein [place]2009[place] [facility] [place] 18[place], length 60mm, lot [id number] History of carpal tunnel surgery of left wrist Hx of cholecystectomy History of section section Family History Mother Personal history of malignant neoplasm BONE,THYROID,BACK,LIVER,BLADDER,BREAST Father Asthma Sister No problems noted. Brother No problems noted. Social History Smoking/Tobacco Use Status: Current every day Tobacco Type: cigarettes Smoking risk assessment performed?: Yes Alcohol Intake: never Drug use: Never Substance use type: does not use Household members: spouse Housing: house What type of physical activity do you participate in: none Do you feel safe at home: Yes Do you feel safe in your relationship?: Yes Additional Social history: Dtr at side Meds Allergies and Home Medications Allergies Allergy/AdvReac Type Severity Reaction Status Date / Time rizatriptan benzoate (From Allergy Severe tongue Verified 10/03/24 13:47 Maxalt) swelling, diff.swallowing per pt azithromycin Allergy Intermediate SOB-pt Verified 10/03/24 13:47 reported sulfamethoxazole Allergy Unknown Other (See Verified 10/03/24 13:47 Comment) trimethoprim (From Bactrim) Allergy Unknown Other (See Verified 10/03/24 13:47 Comment) adhesive Allergy RASH Verified 10/03/24 13:47 wheat Allergy SKIN RASH Verified 10/03/24 13:47 sertraline AdvReac Intermediate sweating Verified 10/03/24 13:47 torsemide AdvReac Intermediate Other (See Verified 10/03/24 13:47 Comment) tramadol AdvReac Intermediate Nausea Verified 10/03/24 13:47 venlafaxine AdvReac Intermediate sweating,fa Verified 10/03/24 13:47 tigue,malai se amoxicillin AdvReac GI UPSET Verified 10/03/24 13:47 ondansetron (From Zofran) AdvReac can taste Verified 10/03/24 13:47 pill for days...per pt promethazine AdvReac jitters Verified 10/03/24 13:47 Home Medications ?Medication ?Instructions ?Recorded ?Confirmed ?Type Elbow Sleeve 1 DAILY #1 ea 03/21/16 04/30/19 Clinic hydrocortisone 1 % topical cream 1 applic topical BID PRN 05/30/23 10/03/24 History (Anti-Itch (hydrocortisone)) blood-glucose meter (OneTouch #1 ea 06/15/23 11/25/24 Rx Ultra2 Meter) blood sugar diagnostic #200 strips 07/31/23 11/25/24 Rx magnesium hydroxide 400 mg (170 mg 400 mg PO DAILY #90 tabs 12/06/23 11/25/24 Rx magnesium) chewable tablet lancets 33 gauge (OneTouch Delica #100 ea 02/04/24 11/25/24 Rx Plus Lancet) ibuprofen 200 mg capsule (Motrin 200 mg PO Q6H PRN 03/25/24 10/03/24 History IB) ferrous sulfate 325 mg (65 mg 325 mg PO DAILY #90 tabs 03/26/24 10/03/24 Rx iron) tablet fluticasone 250 mcg-salmeterol 50 1 inh inhalation BID #60 ea 04/02/24 10/03/24 Rx mcg/dose blistr powdr for inhalation (Advair Diskus) metformin 1,000 mg tablet 1,000 mg PO BID #180 tab-caps 05/22/24 11/25/24 Rx warfarin 5 mg tablet 5 mg PO QPM #90 tabs 06/26/24 11/25/24 Rx bumetanide 2 mg tablet 2 mg PO DAILY #30 tabs 06/30/24 11/25/24 Rx ciclopirox 0.77 % topical 1 applic topical DAILY 6 weeks #60 07/23/24 11/25/24 Rx suspension mL gabapentin 300 mg capsule 300 mg PO TID #270 caps 07/23/24 11/25/24 Rx dapsone 25 mg tablet 50 mg (2 x 25 mg) PO BID #240 08/07/24 11/25/24 Rx tab-caps nystatin 100,000 unit/mL oral 1 ml PO QID #473 mL 08/07/24 10/03/24 Rx suspension ergocalciferol (vitamin D2) 1,250 1,250 mcg PO QWEEK 09/18/24 10/03/24 History mcg (50,000 unit) capsule (Vitamin D2) lorazepam 0.5 mg tablet (Ativan) 0.5 mg PO DAILY PRN anxiety #28 11/18/24 11/25/24 Rx tabs clopidogrel 75 mg tablet (Plavix) 75 mg PO DAILY 11/25/24 11/25/24 History lactulose 20 gram oral packet 20 g PO DAILY 11/25/24 11/25/24 History nitroglycerin 0.4 mg sublingual 0.4 mg sublingual Q5M PRN 11/25/24 11/25/24 History tablet pantoprazole 40 mg tablet,delayed 40 mg PO DAILY 11/25/24 11/25/24 History release Exam Narrative Exam Narrative: GEN: Lying on side in bed, sleepy but arousable, oriented, cooperative, gives linear history. Mild distress at rest wiht intermittent wretching. HEENT: Head atraumatic. Conjunctiva clear, no icterus. PEERL, EOMI. no rhinorrhea. MM dry, without lesions (though she wasn't able to open very wide). Neck is supple with no masses or lymphadenopathy, trachea midline LUNGS: CTAB with normal effort CV: RRR with no murmurs, gallops, or rubs. ABD: active bowel sounds, soft, nontender and nondistended. No masses. EXT: no cyanosis, clubbing. Trace carmen jenn edema MSK: No joint redness or swelling NEURO: CN 2-12 grossly intact. Normal movement of 4 extremities. Normal speech and coordination. No tremor SKIN: No rashes. Wound right groin dressed, no drainage or surrounding erythema. Right sousa wound c/d/i. PSYCH: normal mood and affect, nl thought process. Results Imaging EKG: report reviewed and image reviewed (NSR, normal axis, intervals (QTc 482). Flat inferior and latera l T waves, no ST depression/elevation. Simialr to 06/09/24) Labs 11/25/24 16:50 11/25/24 16:50 Labs: Laboratory Results - last 24 hr 11/25/24 11/25/24 11/25/24 16:50 17:50 20:29 WBC 5.03 RBC 2.52 L Hgb 8.4 L Hct 26.9 L MCV 107 H MCH 33.3 H MCHC 31.2 L RDW 16.2 H Plt Count 163 MPV 9.4 Immature Gran % 0.6 Neutrophils % 82.5 Lymphocytes % 10.5 Monocytes % 5.4 Eosinophils % 0.6 Basophils % 0.4 Nucleated RBC % 0.0 Absolute Neutrophils 4.15 Absolute Lymphocytes 0.53 L Absolute Monocytes 0.27 Absolute Eosinophils 0.03 Absolute Basophils 0.02 RBC Morphology See Below Anisocytosis 1+ Macrocytosis 2+ PT 39.2 H INR 4.3 H* APTT 44.4 H VBG pH 7.29 L VBG pCO2 37 L VBG pO2 28 VBG HCO3 18 L VBG Total CO2 17 L VBG O2 Saturation 47 VBG Base Excess -9 L VBG Lactate 0.8 Sodium 138 Potassium 4.8 Chloride 105 Carbon Dioxide 18.6 L Anion Gap 14.4 H BUN 29 H Creatinine 1.5 H Est GFR (CKD-EPI 2020) 37.96 Glucose 98 Calcium 9.5 Magnesium 1.5 L Total Bilirubin 0.5 AST 29 ALT 25 Alkaline Phosphatase 348 H Troponin I 39 39 38 NT-Pro-B Natriuret Pep 6760 H Total Protein 8.2 Albumin 2.9 L Procalcitonin 0.12 TSH 8.72 H Free T4 0.97 Last Vital Signs Temp 37.3 C 11/25/24 16:52 Pulse 81 11/25/24 17:01 Resp 15 11/25/24 17:01 BP 153/41 H 11/25/24 17:01 Pulse Ox 96 11/25/24 17:01 Time Spent Time spent with Patient: 55-74 minutes Time was spent: preparing to see the patient(eg.review tests), obtaining and/or reviewing separately otained hiistory, ordering medications,tests, procedures, referring, communicating with other health patient centered care specialist, indepentently interpreting results, counseling the patient and care coordination
--- NOTE | 2024-11-25 22:14 | W.PC.ACHO ---
Registration Status: Primary Language: Preferred Language: ED Information & Data Chief Complaint Nausea/Vomit/Diar 11/25/24 17:20 Triage Note Patient recently [place] 11/25/24 16:52 [place] [facility] [place] then had a cardiac arrest after. Patient started having nausea and vomiting today after she took her home metformin Medical / Surgical History (Last Reviewed 10/03/24 @ 14:22 by Renzo Castano NP) Skin lesion Hyponatremia Left hand pain Seborrheic dermatitis Hypomagnesemia Myositis associated antibody positive Generalized weakness Candidiasis of mouth Gait abnormality Calcinosis cutis Other osteoporosis with current pathological fracture, left ankle and foot, sequela Right arm pain Left foot pain Edema of left foot Thoracic back pain Mid back pain Chest pain Right foot pain Gout Encounter for immunization Abnormal LFTs (liver function tests) Chronic anemia Sore throat Hoarseness of voice Leg pain Elevated blood pressure reading Fatigue Epigastric pain Zoster Corns Abnormal liver function Carpal tunnel syndrome Corns and callus History of dysmenorrhea (07/19/95) Elevation of level of transaminase and lactic acid dehydrogenase (LDH) Foot pain Plantar fasciitis Pulmonary embolism Microcytic anemia Dyspnea on effort Chronic cough Protein C deficiency Chronic pain in left foot Venous insufficiency of both lower extremities (08/03/15) Ulnar neuropathy of left upper extremity (03/21/16) Spinal stenosis, lumbar region with neurogenic claudication (08/17/15) Smoker Peripheral vascular disease (07/28/14) Obesity Nocturnal leg cramps (07/04/16) Migraine Low back pain Irritable bowel syndrome with diarrhea (06/26/17) Hyperlipidemia Gastroesophageal reflux disease Diabetic peripheral neuropathy (08/03/15) 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) Depressive disorder Celiac disease (07/19/05) Carpal tunnel syndrome of right wrist (08/03/15) Bursitis of right shoulder (07/04/16) Nausea & vomiting GERD (gastroesophageal reflux disease) Diabetes mellitus Pulmonary embolism DVT (deep venous thrombosis) (Last Reviewed 10/03/24 @ 14:22 by Renzo Castano NP) History of angioplasty of peripheral vessel History of carpal tunnel surgery of left wrist Hx of cholecystectomy History of section section Most Recent Vital Signs Temperature 37.3 C 11/25/24 16:52 Temperature Source Oral 11/25/24 16:52 Pulse 81 11/25/24 17:01 Pulse 74 11/25/24 17:01 Respiratory Rate 15 11/25/24 17:01 Blood Pressure 153/41 H 11/25/24 17:01 Blood Pressure Mean 67 11/25/24 17:01 Pulse Oximetry 96 11/25/24 17:01 Oxygen Delivery Method Room Air 11/25/24 16:52 Oxygen Flow Rate 0 11/25/24 16:52 Allergies rizatriptan benzoate (From Maxalt) Allergy (Severe, Verified 10/03/24 13:47) tongue swelling, diff.swallowing per pt azithromycin Allergy (Intermediate, Verified 10/03/24 13:47) SOB-pt reported sulfamethoxazole Allergy (Unknown, Verified 10/03/24 13:47) Other (See Comment) trimethoprim (From Bactrim) Allergy (Unknown, Verified 10/03/24 13:47) Other (See Comment) adhesive Allergy (Verified 10/03/24 13:47) RASH wheat Allergy (Verified 10/03/24 13:47) SKIN RASH sertraline Adverse Reaction (Intermediate, Verified 10/03/24 13:47) sweating torsemide Adverse Reaction (Intermediate, Verified 10/03/24 13:47) Other (See Comment) DIZZINESS, EARS FELT FULL OF WATER tramadol Adverse Reaction (Intermediate, Verified 10/03/24 13:47) Nausea venlafaxine Adverse Reaction (Intermediate, Verified 10/03/24 13:47) sweating,fatigue,malaise amoxicillin Adverse Reaction (Verified 10/03/24 13:47) GI UPSET ondansetron (From Zofran) Adverse Reaction (Verified 10/03/24 13:47) can taste pill for days...per pt promethazine Adverse Reaction (Verified 10/03/24 13:47) jitters Precautions Isolation Standard precaution 11/25/24 17:07 IV IV Catheter Type [Right Saline Lock Antecubital] IV Catheter Gauge [Right 18 Antecubital] Diet Orders Category Date Time Status Heart Healthy Eating [DIET] Nutrition 11/26/24 Breakfast Ordered Diagnostics 11/25/24 11/25/24 11/25/24 Range/Units 21:18 20:29 17:50 WBC (4.4-10.8) 10^3/uL RBC (3.93-5.22) 10^6/uL Hgb (11.2-15.7) g/dL Hct (36.0-46.0) % MCV (80-95) fL MCH (27.0-33.0) pg MCHC (32.0-36.0) % RDW (11.7-14.6) % Plt Count (130-400) 10^3/uL MPV (8.0-11.0) fL Immature Gran % % Neutrophils % % Lymphocytes % % Monocytes % % Eosinophils % % Basophils % % Nucleated RBC % (0.0-0.3) % Absolute Neutrophils (1.2-6.7) 10^3/uL Absolute Lymphocytes (1.2-3.4) 10^3/uL Absolute Monocytes (0.1-0.8) 10^3/uL Absolute Eosinophils (0.0-0.7) 10^3/uL Absolute Basophils (0.0-0.2) 10^3/uL RBC Morphology Anisocytosis Macrocytosis PT (9.1-11.1) sec INR (0.9-1.1) APTT (20.6-30.2) sec VBG pH (7.31-7.41) VBG pCO2 (41-51) mmHg VBG pO2 mmHg VBG HCO3 (23-28) mmol/L VBG Total CO2 (24-29) mmol/L VBG O2 Saturation % VBG Base Excess (-2-3) mmol/L VBG Lactate (<or=2.0) mmol/L Sodium (136-145) mmol/L Potassium (3.5-5.1) mmol/L Chloride (98-107) mmol/L Carbon Dioxide (21.0-32.0) mmol/L Anion Gap (3-11) mmol/L BUN (7-18) mg/dL Creatinine (0.55-1.02) mg/dL Est GFR (CKD-EPI 2020) (mL/min/1.73m2) Glucose (74-106) mg/dL Calcium (8.5-10.1) mg/dL Magnesium (1.8-2.4) mg/dL Total Bilirubin (0.2-1.0) mg/dL AST (15-37) U/L ALT (14-59) U/L Alkaline Phosphatase (46-116) U/L Troponin I 38 39 (<or=51) ng/L NT-Pro-B Natriuret Pep (<300) pg/mL Total Protein (6.4-8.2) g/dL Albumin (3.4-5.0) g/dL Procalcitonin ng/mL TSH (0.36-3.74) uIU/mL Free T4 (0.76-1.46) ng/dL COVID-19 Source Pending SARS-CoV-2 (PCR) Pending Influenza Type A (PCR) Pending Influenza Type B (PCR) Pending RSV (PCR) Pending 11/25/24 Range/Units 16:50 WBC 5.03 (4.4-10.8) 10^3/uL RBC 2.52 L (3.93-5.22) 10^6/uL Hgb 8.4 L (11.2-15.7) g/dL Hct 26.9 L (36.0-46.0) % MCV 107 H (80-95) fL MCH 33.3 H (27.0-33.0) pg MCHC 31.2 L (32.0-36.0) % RDW 16.2 H (11.7-14.6) % Plt Count 163 (130-400) 10^3/uL MPV 9.4 (8.0-11.0) fL Immature Gran % 0.6 % Neutrophils % 82.5 % Lymphocytes % 10.5 % Monocytes % 5.4 % Eosinophils % 0.6 % Basophils % 0.4 % Nucleated RBC % 0.0 (0.0-0.3) % Absolute Neutrophils 4.15 (1.2-6.7) 10^3/uL Absolute Lymphocytes 0.53 L (1.2-3.4) 10^3/uL Absolute Monocytes 0.27 (0.1-0.8) 10^3/uL Absolute Eosinophils 0.03 (0.0-0.7) 10^3/uL Absolute Basophils 0.02 (0.0-0.2) 10^3/uL RBC Morphology See Below Anisocytosis 1+ Macrocytosis 2+ PT 39.2 H (9.1-11.1) sec INR 4.3 H* (0.9-1.1) APTT 44.4 H (20.6-30.2) sec VBG pH 7.29 L (7.31-7.41) VBG pCO2 37 L (41-51) mmHg VBG pO2 28 mmHg VBG HCO3 18 L (23-28) mmol/L VBG Total CO2 17 L (24-29) mmol/L VBG O2 Saturation 47 % VBG Base Excess -9 L (-2-3) mmol/L VBG Lactate 0.8 (<or=2.0) mmol/L Sodium 138 (136-145) mmol/L Potassium 4.8 (3.5-5.1) mmol/L Chloride 105 (98-107) mmol/L Carbon Dioxide 18.6 L (21.0-32.0) mmol/L Anion Gap 14.4 H (3-11) mmol/L BUN 29 H (7-18) mg/dL Creatinine 1.5 H (0.55-1.02) mg/dL Est GFR (CKD-EPI 2020) 37.96 (mL/min/1.73m2) Glucose 98 (74-106) mg/dL Calcium 9.5 (8.5-10.1) mg/dL Magnesium 1.5 L (1.8-2.4) mg/dL Total Bilirubin 0.5 (0.2-1.0) mg/dL AST 29 (15-37) U/L ALT 25 (14-59) U/L Alkaline Phosphatase 348 H (46-116) U/L Troponin I 39 (<or=51) ng/L NT-Pro-B Natriuret Pep 6760 H (<300) pg/mL Total Protein 8.2 (6.4-8.2) g/dL Albumin 2.9 L (3.4-5.0) g/dL Procalcitonin 0.12 ng/mL TSH 8.72 H (0.36-3.74) uIU/mL Free T4 0.97 (0.76-1.46) ng/dL COVID-19 Source SARS-CoV-2 (PCR) Influenza Type A (PCR) Influenza Type B (PCR) RSV (PCR) Intake and Output - 24 Hour Total 11/25/24 16:34 thru 11/25/24 16:52 Weight 68.039 kg Problems (Last Reviewed 10/03/24 @ 14:22 by Renzo Castano NP) Intractable vomiting (Acute) CAD (coronary artery disease) (Chronic) Iron deficiency anemia (Acute) History of pulmonary embolus (PE) (Acute 05/15/13) Stage 3 chronic kidney disease (Acute) Diabetes (Chronic 12/01/13) v v v v v v v v v Sending and/or Receiving Nurses: Please use comment section below to note any information pertinent to the patient hand-off not included above. Information / Comments:N/V after taking metformin, hadn't eaten. Vomit x 2 in ED, 10/25 cardiac stent, cardiac arrest with CPR, femoral access infected with wound vac in place [place] [facility]ativan, magnesium, droperidol, compazine, 1LNS, tele, previous broken ribs from cpr, stage 3 coccyx, BP 116/94, 155/67, 98RA, HR 85, RR 14, still need UA (bladder scan empty per scan) Report received from: Julieta Alexander RN ED
[2024-11-25 22:35] LABS: COVID-19 PCR Negative (Negative); Influenza A PCR Negative (Negative); Influenza B PCR Negative (Negative); RSV PCR Negative (Negative)
[2024-11-25 22:37] LABS: Source Nasopharynx
[2024-11-25] MEDS: Normal Saline Flush 10 ML SYR IVP ×2 (23:40)
[2024-11-25] MEDS: Normal Saline 1,000 ML 250 ML IV (23:49)
[2024-11-26] VITALS (7 sets, daily range): BP systolic 120–193; BP diastolic 54–73; PULSE 59–82; RESP 18–20; TEMP 36.6–37; O2SAT 96–100
[2024-11-26] MEDS: Pantoprazole 40 MG VIAL IVP ×2 (00:18→15:11)
[2024-11-26] MEDS: Prochlorperazine 10 MG/2 ML VIAL 5 MG IVP ×4 (00:19→12:54)
[2024-11-26] MEDS: Normal Saline Flush 10 ML SYR IVP ×4 (00:19→21:45)
[2024-11-26] MEDS: LORazepam 2 MG/ML VIAL 1 MG IVP (02:02)
[2024-11-26 07:30] LABS: HCT 26.2 % (36.0-46.0); HGB 8.3 g/dL (11.2-15.7); MCH 33.2 pg (27.0-33.0); MCHC 31.7 % (32.0-36.0); MCV 105 fL (80-95); MPV 9.7 fL (8.0-11.0); Platelet Count 162 10^3/uL (130-400); RDW 16.1 % (11.7-14.6); RDW-SD 61.8 fL; WBC 2.91 10^3/uL (4.4-10.8)
[2024-11-26 07:45] LABS: Magnesium 1.9 mg/dL (1.8-2.4)
[2024-11-26] MEDS: Lactulose 20 GM/30 ML CUP PO (07:58)
[2024-11-26 07:59] LABS: Prothrombin Time 40.2 sec (9.1-11.1)
[2024-11-26] MEDS: Nystatin 500000 UNITS/5 ML SUSP 5ML CUP 100000 UNITS PO (07:59)
[2024-11-26 08:04] LABS: INR 4.4 (0.9-1.1)
[2024-11-26 09:40] LABS: Bilirubin Negative (Negative); Blood Small (Negative); Clarity Clear (Clear); Glucose Negative (Negative); Ketones 15 mg/dL (Negative); Leukocyte Esterase Negative (Negative); Nitrite Negative (Negative); Specific Gravity 1.025 (1.005-1.025); Urobilinogen 0.2 mg/dL (Up to 0.2); pH 5.5 (5-8)
[2024-11-26 09:47] LABS: Bacteria Negative HPF (Negative); C & S Indicated? No; Casts 3-5 Hyaline LPF (Negative); Crystals Negative HPF (Negative); Epithelial Cells Moderate HPF (Negative); Mucus Trace (Negative); RBC 0-2 HPF (0-2); WBC Negative HPF (0-5)
--- NOTE | 2024-11-26 10:51 | PHA.REVIEW2 ---
Pharmacy Admission Review Admission Clinical Review Admission Pharmacy Review: Intractable vomiting (Acute) Iron deficiency anemia (Acute) History of pulmonary embolus (PE) (Acute 05/15/13) Stage 3 chronic kidney disease (Acute) rizatriptan benzoate (From Maxalt) Allergy (Severe, Verified 10/03/24 13:47) tongue swelling, diff.swallowing per pt azithromycin Allergy (Intermediate, Verified 10/03/24 13:47) SOB-pt reported sulfamethoxazole Allergy (Unknown, Verified 10/03/24 13:47) Other (See Comment) trimethoprim (From Bactrim) Allergy (Unknown, Verified 10/03/24 13:47) Other (See Comment) adhesive Allergy (Verified 10/03/24 13:47) RASH wheat Allergy (Verified 10/03/24 13:47) SKIN RASH sertraline Adverse Reaction (Intermediate, Verified 10/03/24 13:47) sweating torsemide Adverse Reaction (Intermediate, Verified 10/03/24 13:47) Other (See Comment) tramadol Adverse Reaction (Intermediate, Verified 10/03/24 13:47) Nausea venlafaxine Adverse Reaction (Intermediate, Verified 10/03/24 13:47) sweating,fatigue,malaise amoxicillin Adverse Reaction (Verified 10/03/24 13:47) GI UPSET ondansetron (From Zofran) Adverse Reaction (Verified 10/03/24 13:47) can taste pill for days...per pt promethazine Adverse Reaction (Verified 10/03/24 13:47) jitters Resuscitation Status Full Code Height 5 ft Weight 53.9 kg Pharmacy Admission Review Renal Dosing Renal Dosing: BUN 29 mg/dL (7-18) H 11/25/24 16:50 Creatinine 1.5 mg/dL (0.55-1.02) H 11/25/24 16:50 Medications needing adjustments: Reviewed (CrCl 30.6 mL/min) List of meds needing interventions: Current medications are okay Anticoagulation Anticoagulation: Hgb 8.3 g/dL (11.2-15.7) L 11/26/24 06:55 Hct 26.2 % (36.0-46.0) L 11/26/24 06:55 Plt Count 162 10^3/uL (130-400) 11/26/24 06:55 INR 4.4 (0.9-1.1) H* 11/26/24 06:55 Creatinine 1.5 mg/dL (0.55-1.02) H 11/25/24 16:50 DVT Prophylaxis: Intervened (takes warfarin at home, order was left pending due to supratherapeutic INR. Per H+P plan on holding for now so I canceled the pending order) Relevant Labs Relevant Labs: Sodium 138 mmol/L (136-145) 11/25/24 16:50 Potassium 4.8 mmol/L (3.5-5.1) 11/25/24 16:50 Chloride 105 mmol/L (98-107) 11/25/24 16:50 Magnesium 1.9 mg/dL (1.8-2.4) 11/26/24 06:55 Electrolytes, C-Reactive P, ESR: Reviewed Cardiac Review Cardiac Review: Troponin I 38 ng/L (<or=51) 11/25/24 20:29 NT-Pro-B Natriuret Pep 6760 pg/mL (<300) H 11/25/24 16:50 Blood Pressure 145/68 0948 Blood Pressure 168/59 0714 Blood Pressure 183/73 0305 BP, HR, EF%: Reviewed (HR WNL) List meds needing interventions: Has order for bumetanide 2mg daily QTc Review QTc: Reviewed (482 from 11/25/24) IV to PO Switch IV Medications: Reviewed (lorazepam and prochlorperazine) Home Meds Home Med List reviewed: Intervened Relevent Home Meds Not ordered & why?: Dapsone, Advair (substituted with Symbicort per pharmacy protocol), ibuprofen (PRN), metformin (on hold due to nausea/vomiting - per H+P unsure if patient even needs to take), nitroglycerin (PRN) Changed order for ciclopirox suspension to patients own. Called nurse to see if this could be brought in, per nurse patient at that time was sleeping. She asked patients but he was unsure what it was or if that patient even had it. Recently filled but not on home med list: atorvastatin, hydrocodone/APAP, baclofen, omeprazole and amitriptyline. Looks like the last four were removed from patients home med list yesterday. Per nurse she was [place] [facility] [place] they made a lot of medication changes. She was unsure about the atorvastatin given that the patient was unable to answer questions. Will mention this to provider. Order pending for patients weekly vitamin D3. Again nurse was unable to ask patient what day of the week she uses it. Left pending for now. Current Meds Current Medication Order Review: Reviewed Pharmacy Antibiotic Review Relevant Labs: Relevant Labs 11/25/24 16:50 Procalcitonin 0.12
[2024-11-26] MEDS: Nystatin 500000 UNITS/5 ML SUSP 5ML CUP PO ×3 (11:25→20:02)
[2024-11-26] MEDS: diazePAM 10 MG/2 ML SYR 2 MG IVP (11:25)
--- NOTE | 2024-11-26 13:00 | CHAPLAIN ---
Janna was in bed, clearly uncomfortable, when I visited. She said she feels like she's dying. She is connected to the [facility] and gave me permission to let the [facility] know she is here. She said she hasn't attended [facility] in a while. Because she wasn't comfortable, I didn't stay long, but will visit again.
[2024-11-26] MEDS: Normal Saline 1,000 ML 125 ML IV (15:11)
[2024-11-26] MEDS: Droperidol 5 MG/2 ML VIAL 1.25 MG IVP ×2 (15:20→21:45)
--- NOTE | 2024-11-26 15:44 | PDOC.CMIN ---
Date of service: 11/26/24 Time of Service: 16:50 Care Management Initial Assmt Initial Assessment Reason for Hospitalization: Intractable Vomiting Functional Status/Living Situation Patient Presentation: Janna was sleeping in bed when CM arrived but awoke to RN light touch and voice. She dozed off frequently during CM conversation, requiring awaking. Due to falling asleep during conversation, Janna was unable to share much information. Per Janna, is living in [place] with her Grupo, in their single family home. Per Janna, she has a daughter, Krissy, who acts as support for her and Grupo. She is currently retired and Krissy helps with housekeeping, and groceries. HH SN/PT/OT is in place, however, it is unsure if they were able to see her post discharge at [facility] and pre [facility] admission, at this time. Janna had a PCP appointment scheduled for 11/27/24 but allowed CM to cancel this appointment so she could reschedule to an alterative date. CM will continue to follow. Town of Residence: [place] Resides with: Spouse Significant Other/Family: Local (: Grupo) Natural Supports: Daughter Krissy Instrumental Activities of Daily Living (ADLs): Requires support with Dishes/food prep, Groceries and Transportation Advance Directives Advance Directives: Do you have an Advance Directive: Y 04/18/23 09:18 AD On File at [facility]: Y 04/18/23 09:18 Date Asked 08/26/24 08/26/24 16:32 AD Date Reviewed 08/19/24 08/19/24 13:22 COLST On File at [facility] COLST Date Scanned Code Status Resuscitation Status Full Code Insurance Coverage/Financial Issues Insurance: Medicare Part A & B? Care Team Visit Care Team Role Provider Type Laura Rocha NP MD [facility] STAFF PHYSICIAN Renzo Castano NP Primary Care Provider NURSE PRACTITIONER InPatient Galen Rhoades Other Providers OTHER Santo Hensley MD Emergency Provider [facility] STAFF PHYSICIAN Jerman Arriaga Admit Provider [facility] STAFF PHYSICIAN Attending Provider Discharge Potential Discharge Needs: PCP F/U Appt Anticipated Barriers to Discharge: Medical Status Patient/Family Education Needs: Review discharge instructions, discuss Ask Me Three Transportation: Private vehicle Plan: Anticipate Janna will be discharged home with HH SN/PT/OT. Per Janna, she will need to cancel this appointment. She will follow up with her PCP, and continue per her plan of care. She will likely transport via private vehicle when medically ready. Social Determinants of Health Screening Will the Patient Participate in the Screening?: Declined to provide PFSH All Active Problems Intractable vomiting (Acute) N&V (nausea and vomiting) (Acute) H/O fasciotomy (Acute) PAD (peripheral artery disease) (Acute) Ischemic cardiomyopathy (Acute) Severe protein-calorie malnutrition (Acute) CAD (coronary artery disease) (Chronic) Cardiac arrest (Acute) Iron deficiency anemia (Acute) Fracture, thoracic vertebra, compression (Acute) Rib pain on right side (Acute) Chronic pain syndrome (Chronic) History of pulmonary embolus (PE) (Acute 05/15/13) Finger mass, left (Acute) s/p Left index finger PIP joint cyst excision 08/06/24 Stage 3 chronic kidney disease (Acute) Ganglion cyst of finger (Acute) Cardiomyopathy (Acute) Anticoagulation goal of INR 2 to 3 (Acute) Ganglion cyst (Acute) Bilateral lower extremity edema (Acute) Compression fracture of T9 vertebra (Acute) Crackling sound in left ear (Acute) Nasal vestibulitis (Acute) Tinnitus (Acute) Rotator cuff tear, right (Acute) DEPO MEDROL 12/04/23 Right shoulder pain (Acute) Ocular migraine (Acute) Medication overuse headache (Acute) Migraine headache with aura (Acute) Chronic headache (Acute) Chronic pain syndrome (Chronic 05/23/13) Diabetes (Chronic 12/01/13) Chronic anticoagulation (Acute) Xerostomia (Acute) Angular cheilitis with candidiasis (Acute) Medical History Skin lesion Hyponatremia Left hand pain Seborrheic dermatitis Hypomagnesemia Myositis associated antibody positive Per [facility] Generalized weakness Candidiasis of mouth Gait abnormality Calcinosis cutis Other osteoporosis with current pathological fracture, left ankle and foot, sequela Right arm pain Left foot pain Edema of left foot Thoracic back pain Mid back pain Chest pain Right foot pain Gout Encounter for immunization Abnormal LFTs (liver function tests) Chronic anemia Pt refuses colonoscopy. Feels related to Celiac Disease Sore throat Hoarseness of voice Leg pain Elevated blood pressure reading Fatigue Epigastric pain Nausea & vomiting Zoster Corns Abnormal liver function Carpal tunnel syndrome Corns and callus History of dysmenorrhea (07/19/95) Elevation of level of transaminase and lactic acid dehydrogenase (LDH) Foot pain Plantar fasciitis Pulmonary embolism Microcytic anemia Dyspnea on effort Chronic cough Protein C deficiency Chronic pain in left foot Venous insufficiency of both lower extremities (08/03/15) Ulnar neuropathy of left upper extremity (03/21/16) Spinal stenosis, lumbar region with neurogenic claudication (08/17/15) Smoker Peripheral vascular disease (07/28/14) Stable RAFI 12/2022 at [facility] Obesity Nocturnal leg cramps (07/04/16) Migraine Low back pain Irritable bowel syndrome with diarrhea (06/26/17) Hyperlipidemia Gastroesophageal reflux disease Diabetic peripheral neuropathy (08/03/15) OPTICAL EXPRESSIONS; 08/31/15; LEFT EYE 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 Carpal tunnel syndrome of right wrist (08/03/15) Bursitis of right shoulder (07/04/16) GERD (gastroesophageal reflux disease) Diabetes mellitus Pulmonary embolism DVT (deep venous thrombosis) Surgical History History of angioplasty of peripheral vessel left iliac vein stent (10/01/2009) [facility] diameter 18mm, length 60mm, lot [id number] History of carpal tunnel surgery of left wrist Hx of cholecystectomy History of section section Family History Mother Personal history of malignant neoplasm BONE,THYROID,BACK,LIVER,BLADDER,BREAST Father Asthma Sister No problems noted. Brother No problems noted. Social History Smoking/Tobacco Use Status: Current every day Tobacco Type: cigarettes Smoking risk assessment performed?: Yes Alcohol Intake: never Drug use: Never Substance use type: does not use Household members: spouse Housing: house What type of physical activity do you participate in: none Do you feel safe at home: Yes Do you feel safe in your relationship?: Yes Additional Social history: Dtr at side Readmission Within the Past 30 Days Yes or No: No Anticipated HH Services Anticipated HH Services at Discharge [facility], OT, PT and RN.
--- NOTE | 2024-11-26 16:40 | IN_ITS ---
PT Notes Visit Reasons: Intractable Vomiting Physical Therapy Inpatient Initial Evaluation Date: 11/26/2024 Referring Doctor: Laura Rocha NP PT Orders: PT CONSULT: Monalisa maneuver-vertigo Precautions: Fall. Standard. Activity as tolerated. Patient Profile/Admitting Diagnosis: Janna is a 68-year-old femal with past medical history significant for tinnitus, ocular migraine, migraine headache, and chronic headache who recently had a percutaneous coronary intervention (PCI)/stenting this October at [facility] complicated by R groin infection needing wound vauum placement. She is admitted for management of intractable vomiting, CAD, NIKI, Stage 3 CKD, and diabetes mellitus. Referral was sent to assess for peripheral vertigo and perfom apprpriate Monalisa maneuver today. PMHX: All Active Problems Intractable vomiting (Acute) N&V (nausea and vomiting) (Acute) H/O fasciotomy (Acute) PAD (peripheral artery disease) (Acute) Ischemic cardiomyopathy (Acute) Severe protein-calorie malnutrition (Acute) CAD (coronary artery disease) (Chronic) Cardiac arrest (Acute) Iron deficiency anemia (Acute) Fracture, thoracic vertebra, compression (Acute) Rib pain on right side (Acute) Chronic pain syndrome (Chronic) Finger mass, left (Acute) s/p Left index finger PIP joint cyst excision 08/06/24Stage 3 chronic kidney disease (Acute) Ganglion cyst of finger (Acute) Cardiomyopathy (Acute) Anticoagulation goal of INR 2 to 3 (Acute) Ganglion cyst (Acute) Bilateral lower extremity edema (Acute) Compression fracture of T9 vertebra (Acute) Crackling sound in left ear (Acute) Nasal vestibulitis (Acute) Tinnitus (Acute) Rotator cuff tear, right (Acute) DEPO MEDROL 12/04/23Right shoulder pain (Acute) Ocular migraine (Acute) Medication overuse headache (Acute) Migraine headache with aura (Acute) Chronic headache (Acute) Xerostomia (Acute) Angular cheilitis with candidiasis (Acute) Chronic anticoagulation (Acute) History of pulmonary embolus (PE) (Acute 05/15/13) Diabetes (Chronic 12/01/13) Chronic pain syndrome (Chronic 05/23/13) Medical History Skin lesion Hyponatremia Left hand pain Seborrheic dermatitis Hypomagnesemia [facility] Candidiasis of [facility] Gait abnormality Calcinosis cutis Other osteoporosis with current pathological fracture, left ankle and foot, sequela Right arm pain Left foot pain Edema of left foot Thoracic back pain Mid back pain Chest pain Right foot pain Gout Encounter for immunization Abnormal LFTs (liver function tests) Chronic anemia Pt refuses colonoscopy. Feels related to Celiac DiseaseSore throat Hoarseness of voice Leg pain Elevated blood pressure reading Fatigue Epigastric pain Nausea & vomiting Zoster Corns Abnormal liver function Carpal tunnel syndrome Corns and callus History of dysmenorrhea (07/19/95) Elevation of level of transaminase and lactic acid dehydrogenase (LDH) Foot pain Plantar fasciitis Pulmonary embolism Microcytic anemia Dyspnea on effort Chronic cough Protein C deficiency Chronic pain in left foot Venous insufficiency of both lower extremities (08/03/15) Ulnar neuropathy of left upper extremity (03/21/16) Spinal stenosis, lumbar region with neurogenic claudication (08/17/15) Smoker Peripheral vascular disease (07/28/14) [facility] Nocturnal leg cramps (07/04/16) Migraine Low back pain Irritable bowel syndrome with diarrhea (06/26/17) Hyperlipidemia Gastroesophageal reflux disease Diabetic peripheral neuropathy (08/03/15) OPTICAL EXPRESSIONS; 08/31/15; LEFT EYE 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Carpal tunnel syndrome of right wrist (08/03/15) Bursitis of right shoulder (07/04/16) GERD (gastroesophageal reflux disease) Diabetes mellitus Pulmonary embolism DVT (deep venous thrombosis) Surgical History History of angioplasty of peripheral vessel left iliac vein stent (10/01/2009) [facility] diameter 18mm, length 60mm, lot [id number] of carpal tunnel surgery of left wrist Hx of cholecystectomy History of section section Social History/Home Situation: Lives with and her daughter (and daughter's family) in a private home. Has a wheelchair at home which she frequently uses. Does short-distance walking indoors using her FWW. No falls in the past year. Equipment Owned/DME: Wheelchair, FWW, SPC Subjective: has not been eating well due to persistent nausea. Too nauseated and weak to do anything. Dizzy at rest and with movement. LNAs Elba and another DISPLAY FABRICATOR just transferred patient back from bedside recliner and was only able to stay for less than an hour before he requested to get back to bed. Politely refused doing any maneuvers for vertigo due to increased nausea. Per Nurse Haley, patient was given Valium earlier today which helped some. Patient refused her supper and only took the ana shanthi can, could not tolerate the smell of the chicken noodle soup. Added that she walked last Sunday with the [facility] PT for a short distance. Has not gone out of bed since due to on and off naasea and vomiting. Objective: General Observation: Resting in bed. Has not gotten out of bed until about half an hour ago but needed to get back in due to heightened nausea. Telemetry monitoring in place. Mental Status: Alert and oriented as to person, place, time, and purpose. Able to pay attention, focus, and respond appropriately. Pain: 2-3/10 in R groin area Vital Signs: Closely monitored via tele ROM: Right Upper Extremity: Shoulder Flexion WFL. Shoulder abduction WFL. Elbow flexion WFL. Wrist flexion WFL. Functional opening and closing of hand WFL. Left Upper Extremity: Shoulder Flexion WFL. Shoulder abduction WFL. Elbow flexion WFL. Wrist flexion WFL. Functional opening and closing of hand WFL. Right Lower Extremity: Hip flexion allows up to about 100 degrees only. Hip abduction WFL. Knee flexion 20 degrees to 90 degrees. Knee extension -20 degres. Ankle dorsiflexion WFL. Ankle plantarflexion WFL. Left Lower Extremity: Hip flexion WFL. Hip abduction WFL. Knee flexion WFL. Ankle dorsiflexion WFL. Ankle plantarflexion WFL. Strength: Right Upper Extremity: Shoulder flexors 4-/5. Shoulder abductors 4-/5. Elbow flexors 4-/5. Elbow extensors 4-/5. Cream Gatherer strong. Left Upper Extremity: Shoulder flexors 4-/5. Shoulder abductors 4-/5. Elbow flexors 4-/5. Elbow extensors 4-/5. Cream Gatherer strong. Right Lower Extremity: Hip flexors 3-/5. Hip abductors 4-/5. Knee flexors 3-/5. Knee extensors 3-/5. Ankle dorsiflexors 4-/5. Ankle plantarflexors 4-/5. Left Lower Extremity: Hip flexors 4/5. Hip abductors 4/5. Knee flexors 4/5. Knee extensors 4-/5. Ankle dorsiflexors 4-/5. Ankle plantarflexors 4-/5. Bed Mobility/Transfers: Minimal cueing provided for use of B hands as needed for support, movement sequence, AD management, and posture to reduce fall risk and minimize pain report Rolling moderate assist Supine to sit moderate assist Sit to supine moderate assist Sit to stand moderate assist of 2 with nursing staff Stand to sit moderate assist of 2 with nursing staff Bed to reclining chair moderate assist of 2 with nursing staff Reclining chair to bed moderate assist of 2 with nursing staff Gait: Only tolerated distance from edge of bed to chair about 6-8 total small steps with assist of 2 nursing staff using front-wheeled walker right before PT came in. Patient refused any further out-of bed activities due to worsened nausea and fatigue. Stairs: Deferred Balance: Static Sitting: Fair Dynamic Sitting: Poor Static Standing: Poor Dynamic Standing: Unable to tolerate Special Tests: Mobility Limitations Standardized Measure [facility] AM-PAC 6 clicks Basic Mobility Inpatient Short Form: Raw Score: 12 CMS Score: 69% deficit Informed Consent/Education: Patient was instructed in purpose of PT consult and plan of care. Agreeable to proceed with established PT POC to achieve personal goals. Assessment: Nausea, vomiting, and fatigue all limited any out of bed activities with patient today. Patient's symptoms are not typical of peripherral vertigo as her dizziness is not position evoked, her nausea and dizziness are there at rest and with movement. Will reassess her symptoms tomorrow, as ordered. Bennett- Hallpike maneuver was deferred as patient is unable to tolerated and foreign not want to be moved some more after she transferred back to bed from the chair. Janna is a 68-year-old femal with past medical history significant for tinnitus, ocular migraine, migraine headache, and chronic headache who recently had a percutaneous coronary intervention (PCI)/stenting this October at [facility] complicated by R groin infection needing wound vacuum placement. She is admitted for management of intractable vomiting, CAD, NIKI, Stage 3 CKD, and diabetes mellitus. Referral was sent to assess for peripheral vertigo and perfom appropriate Monalisa maneuver. Patient presents with clinical signs and symptoms consistent with current/admitting diagnoses that have resulted to mobility limitations, gait instability, generalized weakness, and overall ADL decline as demonstrated by the following impairment level findings: 1. Decreased strength to B UE/LE major muscle groups 2. Impaired sitting/standing balance 3. Impaired activity tolerance 4. Nausea 5. Mild dizziness not positionally evoked Impairments are contributing to the following functional limitations: 1. Decline in bed mobility skills 2. Decline in transfer skills 3. Difficulty with ambulation without assistive device and physical assistance 4. Increased completion time for mobility ADL performance 5. Increased risk for falls 6. Difficulty with managing steps alone safely Patient is assessed as a 80913 moderate complexity based on the following: History: 68-year-old female with past medical history as indicated above Examination: Demonstrable impairment in strength, balance, and mobility level with underlying impairments and functional limitations as exhibited above as well as deficit score of 69% utilizing the [facility] Mobility Inpatient Short Form Presentation: Evolving Decision Makin moderate complexity Goals: Goals X1 week 1. Supine-Sit independent 2. Sit-Supine independent 3. Sit-Stand independent 4. Stand-Sit independent with FWW 5. Bed-Chair independent with FWW 6. Chair-Bed independent with FWW 7. Independent gait on level surface with use of FWW for at least 150 feet without report of pain nor dyspnea 8. Independent stair negotiation while holding onto B rails for at least 3 steps without report of pain nor dyspnea 9. Independent with home exercise program 10. Good static and dynamic standing balance/tolerance Plan of Care/Treatment Plan: 1-2x/day, 7 days/week x 1 week. Plan of care has been reviewed with the BOILER TESTER providing the service under Physical Therapy direction. Initiate Physical Therapy intervention for pain management as needed, strengthening, bed mobility, transfers, gait, stairs, balance training, and use of assistive device. DISCHARGE RECOMMENDATIONS: [] Home with no services [] [] Home with services [specify] [] Home with outpatient PT [] [] SNF for continued rehabilitation [] [] Behavioral Geneticist Care [] [] SNF versus LTC based on ability to participate and progress [] [X] Short-term SNF vs HH PT based on availability and ability of caregivers at home TREATMENT CODE/TIME: 80885 x 16 minutes for 1 unit (16:40-16:56). Thank you for the opportunity to participate in the care of this patient. Jenny Guy PT, DPT, CLT [facility] [place], [place]
--- NOTE | 2024-11-26 18:51 | PGE_ITS ---
Date of Service Date of service: 11/26/24 Time of Service: 18:52 Assessment and Plan Assessment and plan (1) Intractable vomiting: Status: Acute Assessment and plan: Unclear etiology. Also has been having loose stools, very likely this is an acute viral gastroenteritis. Allergies include ondansatron and promethazone. Droperidol has helped; continue prn NS @ 125 ml/h I&O (2) CAD (coronary artery disease): Status: Chronic Assessment and plan: S/p stent within the month complicated by post-PCI arrest. On DAPT. No current angina, troponins and EKG reassuring. Monitor on telemetry - NSR with some r to r variation (3) Iron deficiency anemia: Status: Acute Assessment and plan: Chronic, continue iron when taking po well. (4) Stage 3 chronic kidney disease: Status: Acute Assessment and plan: Cr appears to be at her baseline. Monitor with ongoing vomiting. (5) History of pulmonary embolus (PE): Status: Acute Assessment and plan: H/o DVT and PE associated with protein C deficiency. On warfarin with INR goal 2-3. Holding warfarin as above goal. Follow daily. INR today 4.4 probab (6) Diabetes: Status: Chronic Assessment and plan: history of diabetes but all recent A1c results are <5%. Diabetes in remission. No reason to monitor blood glucose. She may not need that metformin (7) Smoker: Assessment and plan: NRT prn, but doesn't tolerate adhesive Subjective Subjective Patient reports: no new complaints, tolerating liquids well, bowel movement, nausea and vomiting; denies tolerating a regular diet, flatus, diarrhea, blood in stool or shortness of breath Interval history since last seen: Patient states she has nausea and continues to vomit. Exam Const General: no acute distress Orientation: alert [facility] Head: normal to inspection Ears: external ears normal General nose exam: external nose normal Mouth: moist mucous membranes Eyes General: appearance normal, both eyes and all related structures Neck Neck: normal visual inspection Resp Effort & Inspection: normal respiratory effort and able to speak in complete sentences Auscultation: clear to auscultation bilaterally Cardio Rate: regular rate GI Palpation: soft and nontender Auscultation: normal bowel sounds Rectal Exam - female: visual inspection normal Skin General skin exam: no rashes or lesions noted Neuro General: patient alert and patient oriented x3 Psych Mental Status: mental status grossly normal Objective Last Vital Signs Temp 36.8 C 11/26/24 16:09 Pulse 69 11/26/24 16:09 Resp 20 11/26/24 16:09 BP 145/70 H 11/26/24 16:29 Pulse Ox 98 11/26/24 16:09 Laboratory Results - last 24 hr 11/25/24 11/25/24 11/25/24 16:50 20:29 21:18 WBC RBC Hgb Hct MCV MCH MCHC RDW Plt Count MPV PT INR Magnesium Troponin I 38 Free T4 0.97 Urine Color Urine Clarity Urine pH Ur Specific [place] Urine Protein Urine Ketones Urine Blood Urine Nitrite Urine Bilirubin Urine Urobilinogen Ur Leukocyte Esterase Urine RBC Urine WBC Ur Epithelial Cells Urine Crystals Urine Bacteria Urine Casts Urine Mucus Ur Culture Indicated? Urine Glucose COVID-19 Source Nasopharynx SARS-CoV-2 (PCR) Negative Influenza Type A (PCR) Negative Influenza Type B (PCR) Negative RSV (PCR) Negative 11/26/24 11/26/24 06:55 09:26 WBC 2.91 L RBC 2.50 L Hgb 8.3 L Hct 26.2 L MCV 105 H MCH 33.2 H MCHC 31.7 L RDW 16.1 H Plt Count 162 MPV 9.7 PT 40.2 H INR 4.4 H* Magnesium 1.9 Troponin I Free T4 Urine Color Yellow Urine Clarity Clear Urine pH 5.5 Ur Specific [place] 1.025 Urine Protein >=300 H Urine Ketones 15 H Urine Blood Small H Urine Nitrite Negative Urine Bilirubin Negative Urine Urobilinogen 0.2 Ur Leukocyte Esterase Negative Urine RBC 0-2 Urine WBC Negative Ur Epithelial Cells Moderate Urine Crystals Negative Urine Bacteria Negative Urine Casts 3-5 Hyaline Urine Mucus Trace Ur Culture Indicated? No Urine Glucose Negative COVID-19 Source SARS-CoV-2 (PCR) Influenza Type A (PCR) Influenza Type B (PCR) RSV (PCR) Time Spent with Patient Time Spent with Patient: 25-34 minutes Time was spent: preparing to see the patient(eg.review tests), ordering medications,tests, procedures, referring, communicating with other health home care companion, indepentently interpreting results, counseling the patient and care coordination
[2024-11-26] MEDS: Scopolamine 1 MG/3 DAYS PATCH TD (20:02)
[2024-11-27] MEDS: Prochlorperazine 10 MG/2 ML VIAL 5 MG IVP ×3 (00:16→16:49)
[2024-11-27] MEDS: Normal Saline Flush 10 ML SYR IVP ×3 (00:16→19:42)
[2024-11-27 02:55] VITALS: BP 125/63; PULSE 85; RESP 20; TEMP 37.2; O2SAT 98
[2024-11-27] MEDS: LORazepam 2 MG/ML VIAL 1 MG IVP ×2 (03:15→19:43)
[2024-11-27] MEDS: Normal Saline 1,000 ML 125 ML IV (05:05)
[2024-11-27] MEDS: Droperidol 5 MG/2 ML VIAL 1.25 MG IVP ×2 (06:28→14:24)
[2024-11-27 06:42] LABS: Abs Immature Grans 0.02 10^3/uL (0.0-0.06); Absolute Basophil Count 0.01 10^3/uL (0.0-0.2); Absolute Lymphocyte Count 0.77 10^3/uL (1.2-3.4); Absolute Monocyte Count 0.44 10^3/uL (0.1-0.8); Absolute Neutrophil Count 3.67 10^3/uL (1.2-6.7); Basophils % 0.2 %; HCT 23.4 % (36.0-46.0); HGB 7.3 g/dL (11.2-15.7); Immature Grans % 0.4 %; Lymphocytes % 15.7 %; MCH 32.9 pg (27.0-33.0); MCHC 31.2 % (32.0-36.0); MCV 105 fL (80-95); MPV 9.1 fL (8.0-11.0); Neutrophils % 74.7 %; Platelet Count 144 10^3/uL (130-400); RBC 2.22 10^6/uL (3.93-5.22); RDW 15.8 % (11.7-14.6); RDW-SD 61.1 fL; WBC 4.91 10^3/uL (4.4-10.8)
[2024-11-27 06:53] LABS: Magnesium 1.5 mg/dL (1.8-2.4)
[2024-11-27 06:59] LABS: BUN 19 mg/dL (7-18); CREATININE 1.2 mg/dL (0.55-1.02); Calcium 8.7 mg/dL (8.5-10.1); Chloride 108 mmol/L (98-107); Estimated GFR 49.61 (mL/min/1.73m2); Glucose 105 mg/dL (74-106); Sodium 138 mmol/L (136-145)
[2024-11-27 07:00] LABS: C-Reactive Protein < 0.50 mg/dL (<or=0.5)
[2024-11-27 07:29] LABS: Diff Comment RBC Morph Reviewed
[2024-11-27 07:30] LABS: Macrocytosis 1+; Polychromasia Present
[2024-11-27 07:37] VITALS: BP 148/58; PULSE 89; RESP 20; TEMP 36.5; O2SAT 100
[2024-11-27] MEDS: Ferrous Sulfate 325 MG TAB PO (07:59)
[2024-11-27] MEDS: Magnesium Oxide 400 MG TAB PO (07:59)
[2024-11-27] MEDS: Nystatin 500000 UNITS/5 ML SUSP 5ML CUP PO ×4 (07:59→19:42)
[2024-11-27] MEDS: Bumetanide 1 MG TAB 2 MG PO (07:59)
[2024-11-27] MEDS: Lactulose 20 GM/30 ML CUP PO (07:59)
[2024-11-27] MEDS: Clopidogrel 75 MG TAB PO (07:59)
--- NOTE | 2024-11-27 08:02 | PT.INTREAT ---
PT Notes Visit Reasons: Intractable Vomiting Physical Therapy Inpatient Treatment Note Date: 11/27/2024 Precautions: Fall. Standard. Activity as tolerated. Subjective: Did not eat her breakfast and her lunch today. Has not had a bowel movement. Still feels nauseated but was agreeable to trying out transferring to the chair whne patient was told that movement is important for pneumonia prevention. Objective: General Observation: Telemetry monitoring in place. Mental Status: Alert and oriented as to person, place, time, and purpose. Able to pay attention, focus, and respond appropriately. Pain: 2-310 in R groin area Vital Signs: Closely monitored via tele Bed Mobility/Transfers: Minimal cueing provided for use of B hands as needed for support, movement sequence, AD management, and posture to reduce fall risk and minimize pain report Rolling moderate assist Supine to sit moderate assist Sit to supine moderate assist Sit to stand minimal assist with FWW Stand to sit minimal assist with FWW Bed to reclining chair minimal assist with FWW Reclining chair to bed minimal assist with FWW Gait: 8 small very hesitant steps from edge of bed to bedside recliner using her walker with minimal assist of PT. Intensity of nausea the same throughout activity. Stairs: Deferred Balance: Static Sitting: Fair Dynamic Sitting: Poor Static Standing: Poor Dynamic Standing: Unable to tolerate Assessment: Patient's symptoms are not typical of peripherral vertigo as her dizziness is not position evoked, there at rest and with movement. Hiwot-Hallpike maneuver again with very low suspicion of BPPV at this time. Patient refused getting ut of bed early afternoon and when PT came back the seocnd time, both and daughter requested not to wake up patient so she could rest. Janna is a 68-year-old femal with past medical history significant for tinnitus, ocular migraine, migraine headache, and chronic headache who recently had [place] percutaneous coronary [place] [facility] [place] [place] by R groin infection needing wound vacuum placement. She is admitted for management of intractable vomiting, CAD, NIKI, Stage 3 CKD, and diabetes mellitus. Referral was sent to assess for peripheral vertigo and perfom appropriate Monalisa maneuver. Plan of Care/Treatment Plan: 1-2x/day, 7 days/week x 1 week. Plan of care has been reviewed with the DIP UNIT OPERATOR providing the service under Physical Therapy direction. Initiate Physical Therapy intervention for pain management as needed, strengthening, bed mobility, transfers, gait, stairs, balance training, and use of assistive device. DISCHARGE RECOMMENDATIONS: [] Home with no services [] [] Home with services [specify] [] Home with outpatient PT [] [] SNF for continued rehabilitation [] [] Agricultural Economics Professor Care [] [] SNF versus LTC based on ability to participate and progress [] [X] Short-term SNF vs HH PT based on availability and ability of caregivers at home TREATMENT CODE/TIME: Session 1--33051 x 25 minutes for 2 units (08:02-08:27). Session 2-- refused x2
[2024-11-27] MEDS: LORazepam 0.5 MG TAB PO (08:40)
--- NOTE | 2024-11-27 09:39 | PGE_ITS ---
Date of Service Date of service: 11/27/24 Time of Service: 09:39 Assessment and Plan Assessment and plan (1) Intractable vomiting: Start date: 11/27/24 Start time: :45 Status: Acute Assessment and plan: Resolving with no furhter emesis overnight but remains nauseous with reduced PO intake Unclear etiology- Stool PCR for pathogen and C-diff if develops diarrhea Reported: having had loose stools, very likely this is an acute viral gastroenteritis. 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 Continue warfarin therapy to maintain INR goal 2-3. And as above (4) CAD (coronary artery disease): Start date: 11/27/24 Start time: :45 Status: Chronic Assessment and plan: Released from [facility] [place] 2 days prior to presentation s/p stent with Post-PCI cardiac arrest On high intensity statin therapy and Clopidogrel- Will continue home therapy Telemetry Sinus arrhythmia (5) Iron deficiency anemia: Start date: 11/27/24 Start time: :45 Status: Acute Assessment and plan: H&H 7.3 &23.4 from 8.3 & 26.2- Appears chronic, with MCV 105 will check B12 and folate and will continue home dose iron when oral intake is well tolerated Trend might be d/t dilution with IVF therapy or mixed etiology in the setting of point 2 CBC in AM (6) Stage 3 chronic kidney disease: Start date: 11/27/24 Start time: :45 Status: Acute Assessment and plan: Cr remains at her baseline. BMP in AM (7) Diabetes: Start date: 11/27/24 Start time: :45 Status: Chronic Assessment and plan: A1c last results 4.1 then < 5%-2 prior results. No reason to monitor blood glucose at this time Metformin to be re-evaluated by PCP. (8) Smoker: Start date: 11/27/24 Start time: 09:45 Assessment and plan: Bonilla NRT prn, doesn't tolerate adhesive discussed with Dr. Coyle Subjective Subjective Patient reports: no new complaints, nausea and other (Awakens briefly to tactile stimuli, no c/o pain); denies still having pain, shortness of breath or fever Exam Narrative Exam Narrative: Constitutional The patient in bed eye opening with tactile stimuli , no acute distress Neuro:alert and oriented to self, person. No neurological focal deficit Resp: unlabored breathing, clear lung bilaterally w decreased bases Cardio: regular rhythm, S1, S2, no murmur,bilateral radial and dorsalis pedis pulses are positive, palpable GI: Abdomen is not distended, soft and non tender, bowel sounds are present- guarding on LLQ palpation Integumentary: RLE surgical incision healing with intact scab and sutures- DCI, Wound vac to R groin- no erythema Extremities: strength 5/5 to bilateral lower and upper extremities Psych: RASS 0, congruent mood and flat affect. Objective Last Vital Signs Temp 36.5 C 11/27/24 07:37 Pulse 89 11/27/24 07:37 Resp 20 11/27/24 07:37 BP 148/58 H 11/27/24 07:37 Pulse Ox 100 11/27/24 07:37 Laboratory Results - last 24 hr 11/26/24 11/27/24 09:26 06:22 WBC 4.91 RBC 2.22 L Hgb 7.3 L Hct 23.4 L MCV 105 H MCH 32.9 MCHC 31.2 L RDW 15.8 H Plt Count 144 MPV 9.1 Immature Gran % 0.4 Neutrophils % 74.7 Lymphocytes % 15.7 Monocytes % 9.0 Eosinophils % 0.0 Basophils % 0.2 Nucleated RBC % 0.0 Absolute Neutrophils 3.67 Absolute Lymphocytes 0.77 L Absolute Monocytes 0.44 Absolute Eosinophils 0.00 Absolute Basophils 0.01 RBC Morphology See Below Polychromasia Present Macrocytosis 1+ Sodium 138 Potassium 4.0 Chloride 108 H Carbon Dioxide 19.0 L Anion Gap 11.0 BUN 19 H Creatinine 1.2 H Est GFR (CKD-EPI 2020) 49.61 Glucose 105 Calcium 8.7 Magnesium 1.5 L C-Reactive Protein < 0.50 Urine Color Yellow Urine Clarity Clear Urine pH 5.5 Ur Specific [place] 1.025 Urine Protein >=300 H Urine Ketones 15 H Urine Blood Small H Urine Nitrite Negative Urine Bilirubin Negative Urine Urobilinogen 0.2 Ur Leukocyte Esterase Negative Urine RBC 0-2 Urine WBC Negative Ur Epithelial Cells Moderate Urine Crystals Negative Urine Bacteria Negative Urine Casts 3-5 Hyaline Urine Mucus Trace Ur Culture Indicated? No Urine Glucose Negative Time Spent with Patient Time Spent with Patient: >50 minutes Time was spent: preparing to see the patient(eg.review tests), obtaining and/or reviewing separately otained hiistory, ordering medications,tests, procedures, referring, communicating with other health health care / medical job titles, indepentently interpreting results, counseling the patient and care coordination
--- NOTE | 2024-11-27 10:11 | CMPROGNOTE_ITS ---
Date of service: 11/27/24 Time of Service: 10:12 Care Management Progress Note Progress Note Text Progress Note Text: Janna was lying in her bed when CM arrived, with Krissy (daughter), and Grupo () in the room. She was hard to awaken so did not engage. Per Grupo, she was able to see HH RN (comes 3x weekly) after [facility] d/c. Grupo shared that the HH RN recommended that she goes to the ED. CM educated family on COA and sent a referral with Grupo and Krissy's permission. PT recommended STR but per Grupo, they do not want Janna going, as they have all the support they need in the home. They also have 2 walkers, a few canes, and a shower chair. Discharge Potential Discharge Needs: PCP F/U Appt Anticipated Barriers to Discharge: Medical Status Patient/Family Education Needs: Review discharge instructions, discuss Ask Me Three Transportation: Private vehicle (Krissy) Plan: Anticipate Janna will be discharged home with a resumption of HH SN/PT/OT. She will follow up with her PCP, and continue per her plan of care. She will likely transport via private vehicle when medically ready. CM will continue to follow. Social Determinants of Health Screening Will the Patient Participate in the Screening?: Declined to provide
[2024-11-27] MEDS: MAGNESIUM SULFATE 2 GM/50 ML BAG IV_INF (10:46)
[2024-11-27 10:53] LABS: BE (Venous) -8 mmol/L (-2-3); HCO3 (Venous) 18 mmol/L (23-28); O2 Sat (Venous) 76 %; TCO2 (Venous) 18 mmol/L (24-29); pCO2 (Venous) 35 mmHg (41-51); pH (Venous) 7.32 (7.31-7.41); pO2 (Venous) 42 mmHg
--- NOTE | 2024-11-27 11:15 | W.NUTRFU ---
Date of service: 11/27/24 Time of Service: 11:15 Nutrition Note NOTE: 68yo female admitted with vomiting/nausea. PMH significant for CAD, anemia, CKD3, Diabetes and tobacco use. LAst A1c<5%. Fasting glucose today 105. No diabetes meds ordered at this time. Ordered heart healthy diet with normal consistencies. Will change this to regular diet to help with po intake - sodium lab wnl. Pt with normal BMI, however about a 5kg wt loss noted in weight history over the last year - pt declined nutrition focused physical exam but appears to have lost significant muscle mass to the lower legs upon easy observation. total protein lab wnl / with low albumin at 2.9 Pt state CIB frappe probably the most tolerable thing to offer right now - will work with her preferences and nausea to help meet her nutrition needs. Estimated energy needs: 1770kcals (30kcal/kg), 70g protein (1.2g/kg) and 1770mL fluid (1mL per required kcal) will monitor po intake/appetite throughout admission - pt to get ONS to support protein and calorie intake. Time Spent in Nutritional Counseling and Treatment: 5 min
[2024-11-27 11:40] VITALS: BP 161/68; PULSE 88; RESP 20; TEMP 36.6; O2SAT 99
[2024-11-27 12:09] LABS: Prothrombin Time 68.4 sec (9.1-11.1)
[2024-11-27 12:26] LABS: INR 7.9 (0.9-1.1)
[2024-11-27] MEDS: Phytonadione 5 MG TABLET 2.5 MG PO (13:04)
[2024-11-27 15:33] VITALS: BP 157/60; PULSE 79; RESP 20; TEMP 36.5; O2SAT 100
[2024-11-27] MEDS: Pantoprazole 40 MG VIAL IVP (16:49)
[2024-11-27 19:38] VITALS: BP 171/63; PULSE 79; RESP 17; TEMP 37.4; O2SAT 96
[2024-11-28] MEDS: Droperidol 5 MG/2 ML VIAL 1.25 MG IVP ×3 (00:25→14:19)
[2024-11-28] MEDS: LORazepam 0.5 MG TAB PO ×2 (02:24→17:42)
[2024-11-28 06:39] VITALS: BP 154/58; PULSE 77; RESP 16; TEMP 36.7; O2SAT 95
[2024-11-28 06:48] LABS: Abs Immature Grans 0.02 10^3/uL (0.0-0.06); Absolute Eosinophil Count 0.02 10^3/uL (0.0-0.7); Absolute Monocyte Count 0.33 10^3/uL (0.1-0.8); Absolute Neutrophil Count 3.33 10^3/uL (1.2-6.7); Eosinophils % 0.5 %; HCT 24.9 % (36.0-46.0); HGB 8.1 g/dL (11.2-15.7); Immature Grans % 0.5 %; Lymphocytes % 15.9 %; MCH 33.6 pg (27.0-33.0); MCHC 32.5 % (32.0-36.0); MCV 103 fL (80-95); MPV 9.4 fL (8.0-11.0); Monocytes % 7.5 %; Neutrophils % 75.6 %; Platelet Count 136 10^3/uL (130-400); RBC 2.41 10^6/uL (3.93-5.22); RDW 15.4 % (11.7-14.6); RDW-SD 57.7 fL
[2024-11-28 07:05] LABS: Anion Gap 10.8 mmol/L (3-11); BUN 17 mg/dL (7-18); CO2 20.2 mmol/L (21.0-32.0); CREATININE 1.1 mg/dL (0.55-1.02); Calcium 8.7 mg/dL (8.5-10.1); Chloride 107 mmol/L (98-107); Estimated GFR 55.07 (mL/min/1.73m2); Glucose 92 mg/dL (74-106); Magnesium 1.4 mg/dL (1.8-2.4); Potassium 3.6 mmol/L (3.5-5.1); Sodium 138 mmol/L (136-145)
[2024-11-28 07:07] LABS: INR 1.4 (0.9-1.1); Prothrombin Time 13.4 sec (9.1-11.1)
[2024-11-28 07:11] VITALS: BP 169/67; PULSE 87; RESP 16; TEMP 36.3; O2SAT 97
[2024-11-28 07:34] LABS: Folate 8.5 ng/mL (8.6-20.0); Vitamin B12 614 pg/mL (193-986)
--- NOTE | 2024-11-28 07:52 | PT.INTREAT ---
PT Notes Visit Reasons: Intractable Vomiting Physical Therapy Inpatient Treatment Note Date: 11/28/2024 Precautions: Fall. Standard. Activity as tolerated. Subjective: Did not report any nausea for the first time this morning. Agreeable to walking to the door and back with the walker. Did not want to eat her breakfast, judio wanted black tea which this PT made sure she got after transferring to her chair. and daughter were informed of how well the patient did this mrning and are happy of her improvements. Patient was asleep in dennis afternoon and both an daughter wanted patient to rest. Objective: General Observation: Telemetry monitoring in place. Wound vacuum to R groin area. Mental Status: Alert and oriented as to person, place, time, and purpose. Able to pay attention, focus, and respond appropriately. Pain: None reported Vital Signs: Closely monitored via tele Bed Mobility/Transfers: Minimal cueing provided for use of B hands as needed for support, movement sequence, AD management, and posture to reduce fall risk and minimize pain report Supine to sit stand by assist Sit to stand contact guard assist with FWW Stand to sit contact guard assist with FWW Bed to reclining chair contact guard assist with FWW Gait: 40 feet from edge of bed to the door and back to sit on her chair. Jeanette decreased and steps are mildy asymmetric with decreased step height and lengtht on the R Stairs: Deferred Balance: Static Sitting: Fair Dynamic Sitting: Poor Static Standing: Poor Dynamic Standing: Unable to tolerate Assessment: No report of nausea for the first time since start of care. Mobility level beginning to improve. Has good family support. Plan of Care/Treatment Plan: 1-2x/day, 7 days/week x 1 week. Plan of care has been reviewed with the DIVISION HUMAN RESOURCES MANAGER providing the service under Physical Therapy direction. Initiate Physical Therapy intervention for pain management as needed, strengthening, bed mobility, transfers, gait, stairs, balance training, and use of assistive device. DISCHARGE RECOMMENDATIONS: [] Home with no services [] [X] Home with services. Patient will benefit from home health PT services in order to progress mobility level using least restrictive assistive ambulatory device, assess home safety, identify additional equipment needs, and establish a functional maintenance program that will increase ability of patient to remain at home. [] Home with outpatient PT [] [] SNF for continued rehabilitation [] [] Half-Way Care [] [] SNF versus LTC based on ability to participate and progress [] TREATMENT CODE/TIME: Session 1--32169 x 35 minutes for 2 units (07:52-08:29). Session 2-- refused by and daughter
[2024-11-28] MEDS: Clopidogrel 75 MG TAB PO (08:31)
[2024-11-28] MEDS: Ferrous Sulfate 325 MG TAB PO (08:31)
[2024-11-28] MEDS: Lactulose 20 GM/30 ML CUP PO (08:31)
[2024-11-28] MEDS: Bumetanide 1 MG TAB 2 MG PO (08:31)
[2024-11-28] MEDS: Magnesium Oxide 400 MG TAB PO (08:31)
[2024-11-28] MEDS: Prochlorperazine 10 MG/2 ML VIAL 5 MG IVP (08:35)
--- NOTE | 2024-11-28 10:13 | W.PM.PROGNOT ---
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 Continue warfarin therapy to maintain INR goal 2-3. Warfarin 5 mg PO daily resumed - re-evaluate dosing as per INR And as above (4) CAD (coronary artery disease): Start date: 11/27/24 Start time: :45 Status: Chronic Assessment and plan: Reported to have been released from [facility] [place] days prior to presentation s/p stent with Post-PCI cardiac arrest Continue high intensity statin therapy and Clopidogrel- Not on ASA Telemetry SR HR 86 LVEF 20-25% in 04/2024 - not on GDMT (5) Iron deficiency anemia: Start date: 11/27/24 Start time: :45 Status: Acute Assessment and plan: H&H stable at 8.1 & 24.9 from 7.3 &23.4- Appears chronic, with elevated MCV and chronic iron supplementation Iron studies Continue home dose iron when oral intake is well tolerated CBC in AM (6) Folic acid deficiency: Status: Acute Assessment and plan: Folate 8.5 - no cyanocobalamin deficiency Supplementation ordered (7) Stage 3 chronic kidney disease: Start date: 11/27/24 Start time: :45 Status: Acute Assessment and plan: Cr 1.1 close to baseline. BMP in AM (8) Diabetes: Start date: 11/27/24 Start time: 09:45 Status: Chronic Assessment and plan: A1c last results 4.1 then < 5%-2 prior results. No reason to monitor blood glucose at this time Metformin to be re-evaluated by PCP. 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 MACHINE OPERATOR, denies flatus , ABD non-acute Dulcolax suppository (12) Discharge planning issues: Status: Acute Assessment and plan: No further vomiting - seems art baseline despite nausea and was on compazine at home s/p d/c from [facility] [place] , refusing some Rx d/t dislike of taste -Discussion with patient regarding taste not being an ADR and not precluding her to take the Rx as benefits outweight the risk in the case of lactulose and zofran Also refusal of treatments will not allow for improvement in her condition, bringing the question about the pertinence of the stay- Patient questioning if she should leave and clarification given that she should try the medicine considering above discussion about ADR VS taste and liking and ongoing home meds, no recommendation to leave as she would keep refusing at another facility also. - also insisting on spouse getting IV antibiotics when told that the patient most likely had viral gastroenteritis- clarification that viral GI pathogens would most likely clear on their own and that d/t the patient PMHx and age she is most likely to take longer to improve- no antibiotics ordered -D/c home oral intake is tolerated with resumption of HH nursing , PT, OT, SOLUTION LEAD VS PT recommendation for SNF VS HH Discussed with Dr. Coyle Subjective Subjective Patient reports: tolerating liquids well (Does not feel like drinking ), voiding w/o difficulty, no bowel movement and nausea; denies feels better (Weakness, ongoing intermittent nausea), tolerating a regular diet (Do not feel like eating reported reduced PO intake alsos/p d/c from [facility] [place]), vomiting or shortness of breath Exam Narrative Exam Narrative: Constitutional The patient in bed , no acute distress but generalized weakness Neuro:alert and oriented X 4 . No neurological focal deficit Resp: unlabored breathing, clear lung bilaterally Cardio: regular rhythm, S1, S2,positive radial and pedal pulses GI: Abdomen is not distended, soft and non tender, bowel sounds are diminished Integumentary: RLE surgical incision healing with intact scab and sutures- DCI, Wound vac to R groin- no erythema to site Extremities: strength 4/5 to bilateral lower and upper extremities Psych: RASS 0, congruent mood and flat affect. Objective Last Vital Signs Temp 36.3 C L 11/28/24 07:11 Pulse 87 11/28/24 07:11 Resp 16 11/28/24 07:11 BP 169/67 H 11/28/24 07:11 Pulse Ox 97 11/28/24 07:11 Laboratory Results - last 24 hr 11/27/24 11/27/24 11/28/24 10:39 11:20 06:20 WBC 4.40 RBC 2.41 L Hgb 8.1 L Hct 24.9 L MCV 103 H MCH 33.6 H MCHC 32.5 RDW 15.4 H Plt Count 136 MPV 9.4 Immature Gran % 0.5 Neutrophils % 75.6 Lymphocytes % 15.9 Monocytes % 7.5 Eosinophils % 0.5 Basophils % 0.0 Nucleated RBC % 0.0 Absolute Neutrophils 3.33 Absolute Lymphocytes 0.70 L Absolute Monocytes 0.33 Absolute Eosinophils 0.02 Absolute Basophils 0.00 PT Cancelled 68.4 H 13.4 H INR Cancelled 7.9 H* 1.4 H VBG pH 7.32 VBG pCO2 35 L VBG pO2 42 VBG HCO3 18 L VBG Total CO2 18 L VBG O2 Saturation 76 VBG Base Excess -8 L Sodium 138 Potassium 3.6 Chloride 107 Carbon Dioxide 20.2 L Anion Gap 10.8 BUN 17 Creatinine 1.1 H Est GFR (CKD-EPI 2020) 55.07 Glucose 92 Calcium 8.7 Magnesium 1.4 L Vitamin B12 614 Folate 8.5 L Time Spent with Patient Time Spent with Patient: >50 minutes Time was spent: preparing to see the patient(eg.review tests), obtaining and/or reviewing separately otained hiistory, ordering medications,tests, procedures, referring, communicating with other health nursing care partner, indepentently interpreting results, counseling the patient and care coordination
[2024-11-28] MEDS: Folic Acid 1 MG TAB PO (11:00)
[2024-11-28] MEDS: Nystatin 500000 UNITS/5 ML SUSP 5ML CUP PO ×3 (11:00→22:02)
[2024-11-28] MEDS: MAGNESIUM SULFATE 4 GM/100 ML BAG IV_INF (11:01)
[2024-11-28] MEDS: Normal Saline Flush 10 ML SYR IVP ×2 (11:02→22:03)
[2024-11-28] MEDS: Bisacodyl 10 MG SUPP PR (11:16)
--- NOTE | 2024-11-28 11:37 | CMPROGNOTE_ITS ---
Date of service: 11/28/24 Time of Service: 11:37 Care Management Progress Note Progress Note Text Progress Note Text: Janna is awake and holding an emesis bag in bed, when CM arrived. Per Janna, she is not feeling better. Janna stated that she would prefer to go home with services, and not attend a SNF for STR. CM discussed with her the referral to [facility] that was sent (with family permission), and educated on their services which she was agreeable. Janna stated that she would like to go home soon, and would be open to going home today ( CM communicated with RN, and provider). CM encouraged an increase in activity. At this point, Grupo and Krissy entered the room. Janna stated to Krissy that she needed more medicine, she rang the call antonio. 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 She will follow up with her PCP, and continue per her plan of care. She will likely transport via private vehicle when medically ready. CM will continue to follow. Social Determinants of Health Screening Will the Patient Participate in the Screening?: Declined to provide
[2024-11-28] MEDS: Prochlorperazine 5 MG TAB PO (11:47)
[2024-11-28 11:52] VITALS: BP 161/66; PULSE 87; RESP 16; TEMP 36.3; O2SAT 99
--- NOTE | 2024-11-28 11:57 | NUR.NOTE ---
patient is AxOx4, reports some pain to coccyx stage 2 pressure ulcer, biggest complaint is upset stomach. No emesis x few days, IV prn nausea meds were d/c'd and replaced with oral. Pt refusing PO zofran as she reports side effects, per dtr she gets dizzy and agitated on this medication. Given PO compazine instead. Patient unable to eat much, she tolerated an icecream at breakfast and liquids but has poor appetite. Patient has not had BM since 11/25, given suppository this AM and pending response. Worked with PT earlier, was able to walk with SBA with walker in room, fatigued and not tolerating distances well. Pt mostly lays in bed and sleeps during shift. Family visiting at this time. Attempted sitting in recliner but despite pads and cushions she reported too much discomfort on her coccyx. Pt has R groin wound vac that will be changed today and replaced with her home system. RLE with old fasciotomy sites. Patient resting at this time. She reports she wants to discharge not because she feels better but because she doesn't want to be here anymore. Educated pt on what goals are at this time prior to discharge (tolerating PO, participating in ADLs, have a BM). Discussed with pt that it's always her right to leave but that at this time the MACHINE TECHNICIAN does not have plans to discharge her. Angela Adames MACHINE TECHNICIAN was at bedside earlier and discussed that refusing medications because of the way they taste or non allergic reasons makes it difficult for us to treat her. Pt noticeably frustrated at this time and said to should we just go somewhere else then?. This RN reiterated POC for the patient who understands goals of care, at times seems uncooperative due to wanting to feel better immediately, possibly has unreasonable expectations of interventions we are able to provide for her nausea. Nursing Note:
[2024-11-28 12:13] LABS: Iron 69 ug/dL (50-170); Total Iron Binding Capacity 169 ug/dL (250-450); Transferrin Sat 41 % (15-50)
--- NOTE | 2024-11-28 13:22 | W.NUTCONSULT ---
Date of service: 11/28/24 Time of Service: 13:00 Nutritional Consult ASSESSMENT: consult request received 11/28 - please see nutrition note and follow up note 11/27, 11/28. Nutrition staff offering a variety off menu items and ONS for extra nutrition support. however pt with little motivation to take po foods, mostly liquids over admission. Was able to speak with family on 11/28 about nutrition needs and tips on higher kcal/protein choices at home. Time Spent in Nutritional Counseling and Treatment: 10 minutes
[2024-11-28 15:01] VITALS: BP 159/55; PULSE 87; RESP 16; TEMP 37.2; O2SAT 98
--- NOTE | 2024-11-28 15:52 | PCNE_ITS ---
Date of service: 11/28/24 Time of Service: 15:53 History of Present Illness Narrative: Sylvia is a 68 year old female with PAD, ischemic cardiomyopathy, CAD, protein- calorie malnutrition, Hx of recent stent with cardiac arrest at [facility], chronic pain, CKD. She is currently admitted for intractable nausea and vomiting. She was seen for initial palliative consult to discuss GOC and CODE STATUS. She was alone at the time of the visit. Echocardiogram from 04/2024 shows LVEF of 20-25%. Hospitalist is seeking discharge summary to see what her ECHO during recent [facility] admission showed. She lives with her , Grupo. Her daughter, Krissy Dong, comes over daily to check on her. She also has HH. She has lost 30# over the last couple of months. She has lost a lot of strength. Her goal is to get stronger. She wants to get strong enough to clean her house. She did not realize how bad her house got over the last 2 years until she was at [facility] and came back to it. She quit smoking when she had her recent OR. She does not plan to start smoking again. She has not had any cravings. Her is smoking outside now. She is listed as a FULL CODE. Reviewed CODE STATUS. She is aware that she recently had a cardiac arrest. She would want attempts to restart her heart if it stops again. She is not sure if she wants to be intubated but she did not want to change CODE STATUS at this point. She does not have [facility] paperwork. She would choose her and daughter but she declined completing [facility] forms, she states she is too sick right now. She wants to go home. She states, I don't know who to feel better from this. She is eating very little. Her activity is limited. Pressure ulcer to sacrum from her stay at [facility]. Reviewed hospice eligibility. She would likely qualify for hospice at this point if it was in line with her GOC. She is not ready to shift to comfort care/hospice at this point. She is agreeable to Palliative following her after discharge. Assessment and Plan Assessment and plan (1) Intractable vomiting: Start date: 11/27/24 Start time: 09:45 Status: Acute Assessment and plan: Ongoing intermittent nausea, vomiting resolved. Continues with reduced PO intake. Unclear etiology Refusing oral zofran, IV compazine d/c and transitioned to PRN oral form. Wearing scopalamine patch. Does not appear to be on GI protection at home. On PPI here. (2) Supratherapeutic INR: Start time: Status: Acute Assessment and plan: INR down to 1.4 from 7.9 Daily INR And as below (3) History of pulmonary embolus (PE): Start date: 11/27/24 Start time: :45 Status: Acute Assessment and plan: H/o DVT and PE associated with protein C deficiency. Continue warfarin therapy to maintain INR goal 2-3. Warfarin 5 mg PO daily resumed - re-evaluate dosing as per INR And as above (4) CAD (coronary artery disease): Start date: 11/27/24 Start time: Status: Chronic Assessment and plan: Reported to have been released from [facility] 2 days prior to presentation s/p stent with Post-PCI cardiac arrest as well as other complications. Continue high intensity statin therapy and Clopidogrel- Not on ASA Telemetry SR HR 86 LVEF 20-25% in 04/2024 - not on GDMT. Hospitalist seeking discharge summary from [facility] for more recent ECHO results. (5) Iron deficiency anemia: Start date: 11/27/24 Start time: 45 Status: Acute Assessment and plan: H&H stable at 8.1 & 24.9 from 7.3 &23.4- Appears chronic, with elevated MCV and chronic iron supplementation Iron studies Continue home dose iron when oral intake is well tolerated CBC in AM (6) Folic acid deficiency: Status: Acute Assessment and plan: Folate 8.5 - no cyanocobalamin deficiency Supplementation ordered (7) Stage 3 chronic kidney disease: Start date: 11/27/24 Start time: 45 Status: Acute Assessment and plan: Cr 1.1 close to baseline. BMP in AM (8) Diabetes: Start date: 11/27/24 Start time: :45 Status: Chronic Assessment and plan: A1c last results 4.1 then < 5%-2 prior results. No reason to monitor blood glucose at this time Metformin to be re-evaluated by PCP. (9) Smoker: Start date: 11/27/24 Start time: :45 Assessment and plan: Quit smoking with recent [facility] admission. No plans to resume. (10) Generalized weakness: Assessment and plan: Continue PT/OT (11) Constipation: Status: Acute Assessment and plan: Nursing reports formed stool. (12) Palliative care patient: Status: Acute Assessment and plan: Sylvia is a 68 year old female with PAD, ischemic cardiomyopathy, CAD, protein- calorie malnutrition, Hx of recent stent with cardiac arrest at [facility], chronic pain, CKD. She is currently admitted for intractable nausea and vomiting. She was seen for initial palliative consult to discuss GOC and CODE STATUS. She was alone at the time of the visit. Echocardiogram from 04/2024 shows LVEF of 20-25%. Hospitalist is seeking discharge summary to see what her ECHO during recent [facility] admission showed. She lives with her , Grupo. Her daughter, Krissy Dong, comes over daily to check on her. She also has HH. She has lost 30# over the last couple of months. She has lost a lot of strength. Her goal is to get stronger. She wants to get strong enough to clean her house. She is listed as a FULL CODE. Reviewed CODE STATUS. She is aware that she recently had a cardiac arrest. She would want attempts to restart her heart if it stops again. She is not sure if she wants to be intubated but she did not want to change CODE STATUS at this point. Continue to review at future visits. She does not have [facility] paperwork. She would choose her and daughter but she declined completing H[facility] forms, she states she is too sick right now. She is eating very little. Her activity is limited. Pressure ulcer to sacrum from her stay at [facility]. Reviewed hospice eligibility. She would likely qualify for hospice at this point if it was in line with her GOC. She is not ready to shift to comfort care/hospice at this point. She is agreeable to Palliative following her after discharge. F/u palliative HV. Review of Systems Narrative: Per HPI and: She reports pain to her sacral wound. PFSH All Active Problems (Updated 11/28/24 @ 17:05 by Reny Russell NP) Palliative care patient (Acute) Constipation (Acute) Discharge planning issues (Acute) Folic acid deficiency (Acute) Supratherapeutic INR (Acute) Intractable vomiting (Acute) N&V (nausea and vomiting) (Acute) H/O fasciotomy (Acute) PAD (peripheral artery disease) (Acute) Ischemic cardiomyopathy (Acute) 11/27/24 EF 20-25% with global hypokinesis. -hb Severe protein-calorie malnutrition (Acute) CAD (coronary artery disease) (Chronic) Cardiac arrest (Acute) Iron deficiency anemia (Acute) Fracture, thoracic vertebra, compression (Acute) Rib pain on right side (Acute) Chronic pain syndrome (Chronic) History of pulmonary embolus (PE) (Acute 05/15/13) Finger mass, left (Acute) s/p Left index finger PIP joint cyst excision 08/06/24 Stage 3 chronic kidney disease (Acute) Ganglion cyst of finger (Acute) Cardiomyopathy (Acute) Anticoagulation goal of INR 2 to 3 (Acute) Ganglion cyst (Acute) Bilateral lower extremity edema (Acute) Compression fracture of T9 vertebra (Acute) Crackling sound in left ear (Acute) Nasal vestibulitis (Acute) Tinnitus (Acute) Rotator cuff tear, right (Acute) DEPO MEDROL 12/04/23 Right shoulder pain (Acute) Ocular migraine (Acute) Medication overuse headache (Acute) Migraine headache with aura (Acute) Chronic headache (Acute) Chronic pain syndrome (Chronic 05/23/13) Diabetes (Chronic 12/01/13) Chronic anticoagulation (Acute) Xerostomia (Acute) Angular cheilitis with candidiasis (Acute) Medical History Skin lesion Hyponatremia Left hand pain Seborrheic dermatitis Hypomagnesemia Myositis associated antibody positive Per [facility] Generalized weakness Candidiasis of mouth Gait abnormality Calcinosis cutis Other osteoporosis with current pathological fracture, left ankle and foot, sequela Right arm pain Left foot pain Edema of left foot Thoracic back pain Mid back pain Chest pain Right foot pain Gout Encounter for immunization Abnormal LFTs (liver function tests) Chronic anemia Pt refuses colonoscopy. Feels related to Celiac Disease Sore throat Hoarseness of voice Leg pain Elevated blood pressure reading Fatigue Epigastric pain Nausea & vomiting Zoster Corns Abnormal liver function Carpal tunnel syndrome Corns and callus History of dysmenorrhea (07/19/95) Elevation of level of transaminase and lactic acid dehydrogenase (LDH) Foot pain Plantar fasciitis Pulmonary embolism Microcytic anemia Dyspnea on effort Chronic cough Protein C deficiency Chronic pain in left foot Venous insufficiency of both lower extremities (08/03/15) Ulnar neuropathy of left upper extremity (03/21/16) Spinal stenosis, lumbar region with neurogenic claudication (08/17/15) Smoker Peripheral vascular disease (07/28/14) Stable RAFI 12/2022 at [facility] Obesity Nocturnal leg cramps (07/04/16) Migraine Low back pain Irritable bowel syndrome with diarrhea (06/26/17) Hyperlipidemia Gastroesophageal reflux disease Diabetic peripheral neuropathy (08/03/15) OPTICAL EXPRESSIONS; 08/31/15; LEFT EYE 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 Carpal tunnel syndrome of right wrist (08/03/15) Bursitis of right shoulder (07/04/16) GERD (gastroesophageal reflux disease) Diabetes mellitus Pulmonary embolism DVT (deep venous thrombosis) Surgical History History of angioplasty of peripheral vessel left iliac vein stent (10/01/2009) [facility] diameter 18mm, length 60mm, lot [id number] History of carpal tunnel surgery of left wrist Hx of cholecystectomy History of section section Family History Mother Personal history of malignant neoplasm BONE,THYROID,BACK,LIVER,BLADDER,BREAST Father Asthma Sister No problems noted. Brother No problems noted. Social History Smoking/Tobacco Use Status: Current every day Tobacco Type: cigarettes Smoking risk assessment performed?: Yes Alcohol Intake: never Drug use: Never Substance use type: does not use Household members: spouse Housing: house What type of physical activity do you participate in: none Do you feel safe at home: Yes Do you feel safe in your relationship?: Yes Additional Social history: Dtr at side Exam Narrative Exam Narrative: General: pleasant female, appears chronically ill and older than stated age. She was lying in bed with HOB elevated. Skin is pale. She is alert and oriented, engages in conversation, answers questions appropriately. HEENT: normocephalic, atraumatic, EOMI, poor dentition, mmm. Neck: supple Respiratory: respirations appear even and unlabored at rest and with talking. Ext: moves extremities freely. Results Last Vital Signs Temp 37.2 C 11/28/24 15:01 Pulse 87 11/28/24 15:01 Resp 16 11/28/24 15:01 BP 159/55 H 11/28/24 15:01 Pulse Ox 98 11/28/24 15:01 Labs 11/28/24 06:20 11/28/24 06:20 Labs: Laboratory Results - last 24 hr 11/28/24 06:20 WBC 4.40 RBC 2.41 L Hgb 8.1 L Hct 24.9 L MCV 103 H MCH 33.6 H MCHC 32.5 RDW 15.4 H Plt Count 136 MPV 9.4 Immature Gran % 0.5 Neutrophils % 75.6 Lymphocytes % 15.9 Monocytes % 7.5 Eosinophils % 0.5 Basophils % 0.0 Nucleated RBC % 0.0 Absolute Neutrophils 3.33 Absolute Lymphocytes 0.70 L Absolute Monocytes 0.33 Absolute Eosinophils 0.02 Absolute Basophils 0.00 PT 13.4 H INR 1.4 H Sodium 138 Potassium 3.6 Chloride 107 Carbon Dioxide 20.2 L Anion Gap 10.8 BUN 17 Creatinine 1.1 H Est GFR (CKD-EPI 2020) 55.07 Glucose 92 Calcium 8.7 Magnesium 1.4 L Iron 69 TIBC 169 L Transferrin % Sat 41 Vitamin B12 614 Folate 8.5 L Time Spent Time Spent with Patient Time Spent(min): 55
[2024-11-28] MEDS: Metoclopramide 10 MG TAB 5 MG PO ×2 (16:57→22:44)
--- NOTE | 2024-11-28 18:02 | NUR.NOTE ---
patient still feeling ill this afternoon, her nausea doesn't seem to resolve with prn medication, reglan now schedule AC but no resolve of nausea. Gave pt daily prn dose of ativan. Pt states i just want to go home. Pt doesn't seem like she has much energy or fight left in her, she said she is just tired of being sick all the time. Notified Angela Adames NET DEVELOPER PROGRAMMER that the pt would like to go home tomorrow. Per Palliative/note pt is not willing to go hospice route at this time. Pt has only had 2 ice creams today otherwise no oral intake aside from liquids. Voiding and had BM today, denies pain. No active emesis. Very weak when OOB. Resting in bed with bed alarm on, call antonio in reach, bed low/locked. Nursing Note:
[2024-11-28 19:26] VITALS: BP 158/68; PULSE 81; RESP 17; TEMP 36.5; O2SAT 98
[2024-11-28 21:57] VITALS: BP 139/54; PULSE 88; RESP 16; TEMP 36.9; O2SAT 100
[2024-11-28] MEDS: Warfarin 5 MG TAB PO (22:02)
[2024-11-28] MEDS: Dapsone 25 MG TABLET 50 MG PO (22:02)
[2024-11-28] MEDS: Metoprolol CR 25 MG TABCR PO (22:02)
[2024-11-29] MEDS: LORazepam 0.5 MG TAB PO (00:23)
[2024-11-29 03:29] VITALS: BP 152/63; PULSE 71; RESP 19; TEMP 36.5; O2SAT 99
[2024-11-29] MEDS: Bacitracin 1 PACKET (05:30)
--- NOTE | 2024-11-29 05:54 | DSE_ITS ---
Date of service: 11/29/24 Time of Service: 05:15 DS: Diagnosis Discharge Diagnosis (1) Intractable vomiting: Status: Acute Asessment and Plan: Patient was not having vomiting and having some clear fluids but left AMA prior to having stabilization. She will use Ativan at home and was refusing immediate dissolving Zofran in the hospital. She would do better with rehabilitation after a prolonged [place] [facility] but is refusing that as well. (2) Supratherapeutic INR: Status: Acute Asessment and Plan: Corrected with patient back on Coumadin and follows closely with her PCP and home health. (3) History of pulmonary embolus (PE): Status: Acute Asessment and Plan: Resume Coumadin but watch PT/INR closely. (4) CAD (coronary artery disease): Status: Chronic Asessment and Plan: Follow-up with [facility] [place]. (5) Iron deficiency anemia: Status: Acute Asessment and Plan: Monitor as outpatient with supplementation as needed. (6) Folic acid deficiency: Status: Acute Asessment and Plan: Monitor as outpatient with supplementation as needed. (7) Stage 3 chronic kidney disease: Status: Acute Asessment and Plan: Monitor with PCP. (8) Diabetes: Status: Chronic Asessment and Plan: At the outpatient treatment with PCP. (9) Smoker: Asessment and Plan: Advised cessation. (10) Generalized weakness: Asessment and Plan: Patient would do better with rehabilitation and may return to hospital if not doing well. She appears to be noncompliant at home we will do better with home health nurses and outpatient care with her PCP. She appears to be agitated with being in the hospital for prolonged time. (11) Constipation: Status: Acute Asessment and Plan: Cathartics as an outpatient as needed. (12) Palliative care patient: Status: Acute Asessment and Plan: Patient is a full code will follow-up with PCP. Discharge Plan Disposition Patient Disposition: Eloped Condition: Stable Discharge Details Reason For Visit: Intractable Vomiting Admit Date/Time: 11/27/24 12:53 Admit Provider: Jerman Arriaga Attending Provider: Jerman Arriaga Primary Care Provider: Renzo Castano Hospital Course Hospital Course: This is a 68-year-old who had a prolonged course at [facility] [place] with cardiovascular issues who was admitted for intractable nausea and vomiting. She was having nausea but no persistent vomiting the day prior to leaving AMA and is tolerating fluids. She has persistent nausea and was asking for Ativan which was not being given at increased dosing but patient was trialed on immediate dissolving Zofran. There is already left a bad taste in her mouth and she was not happy with not being given her Ativan. She decided she want to go home early and she had received Coumadin the day prior to leaving AMA and will follow-up with home health nurses and her PCP on Coumadin dosing as well as treatment of her nausea with Ativan which she has at home. She called her and he will be picking her up. Her exam appears stable from the last progress note performed by Angela Adames NP. She excepted risk of leaving AGAINST MEDICAL ADVICE and they were considering rehabilitation after her prolonged hospitalization at [facility] but she adamantly refuses this. She is a full code. Home Meds and New Rx's Prescriptions: Continued (DME) blood-glucose meter [[email or web address] Ultra2 Meter] Misc See Rx Instructions .Route Qty: 1 2RF Rx Instructions: Twice daily magnesium hydroxide 400 mg (170 mg magnesium) tablet,chewable 400 mg PO DAILY Qty: 90 3RF ciclopirox 0.77 % suspension 1 applic topical DAILY 42 Days Qty: 60 2RF clopidogrel [Plavix] 75 mg tablet 75 mg PO DAILY lactulose 20 gram packet 20 g PO DAILY pantoprazole 40 mg tablet,delayed release (DR/EC) 40 mg PO DAILY nitroglycerin 0.4 mg tablet, sublingual 0.4 mg sublingual Q5M PRN Rx Instructions: do not exceed 3 doses per episode fluticasone propion-salmeterol [Advair Diskus] 250-50 mcg/dose blister with device 1 inh inhalation BID Qty: 60 3RF ferrous sulfate 325 mg (65 mg iron) tablet 325 mg PO DAILY Qty: 90 3RF dapsone 25 mg tablet 50 mg PO BID Qty: 240 3RF nystatin 100,000 unit/mL suspension 1 ml PO QID Qty: 473 0RF Rx Instructions: swish and swallow (DME) blood sugar diagnostic Strip 1 ea Miscellaneous BID Qty: 200 5RF Rx Instructions: Twice a day testing (DME) lancets [[employer] Delica Plus Lancet] 33 gauge misc See Rx Instructions .ROUTE .COMPLEX Qty: 100 4RF Dose Instruction: USE ONCE DAILY Rx Instructions: USE ONCE DAILY bumetanide 2 mg tablet 2 mg PO DAILY Qty: 30 3RF ergocalciferol (vitamin D2) [Vitamin D2] 1,250 mcg (50,000 unit) capsule 1,250 mcg PO QWEEK Patient Comments: Started by [facility] [place] 09/14/24 lorazepam [Ativan] 0.5 mg tablet 0.5 mg PO DAILY PRN (Reason: anxiety) Qty: 28 0RF Held metformin 1,000 mg tablet 1,000 mg PO BID Qty: 180 4RF Hold Instructions: Resume on 12/01/24. talk with your pcp if they want you to continue this or not Discontinued baclofen 10 mg tablet 20 mg PO HS Qty: 90 3RF omeprazole 40 mg capsule,delayed release(DR/EC) 40 mg PO HS Qty: 90 3RF amitriptyline 25 mg tablet 25 mg PO QHS Qty: 90 3RF hydrocodone-acetaminophen 10-325 mg tablet 1 tab PO Q4H MDD 6 tabs Qty: 168 0RF No Action warfarin 5 mg tablet 5 mg PO QPM Qty: 90 3RF Protocol: Dose Management Condition: Sunday Dose/Route: 2.5 mg Instruction: 0.5 x 5 mg tablets Condition: Sunday Dose/Route: 5 mg Instruction: 1 x 5 mg tablet Condition: Sunday Dose/Route: 2.5 mg Instruction: 0.5 x 5 mg tablets Condition: Sunday Dose/Route: 2.5 mg Instruction: 0.5 x 5 mg tablets Condition: Dose/Route: 5 mg Instruction: 1 x 5 mg tablet Condition: Sunday Dose/Route: 2.5 mg Instruction: 0.5 x 5 mg tablets Condition: Sunday Dose/Route: 5 mg Instruction: 1 x 5 mg tablet Protocol Text: Adjustment Start Date: Sunday10/08/24 INR Value: 1.4 INR Date: 10/08/24 Recheck Date: 10/15/24 rifaximin 550 mg tablet 550 mg PO BID Rx Instructions: 11/27/24 Per [facility]. -hb prochlorperazine maleate [Compazine] 10 mg tablet 10 mg PO TID PRN Rx Instructions: 11/27/24 [facility]. -hb atorvastatin 80 mg tablet 80 mg PO DAILY gabapentin 300 mg capsule 300 mg PO BID Discharge Instructions Additional Instructions: Your lab work did not show any significant findings. A magnesium level was slightly low so we gave you IV magnesium. Your INR was slightly elevated, I recommend holding your dose tomorrow and taking it again on . Follow-up with your primary care provider within 1 to 2 weeks and discuss if they want you to continue metformin. If you feel more ill or have new symptoms such as severe shortness of breath or high fevers return to the emergency department for reevaluation Referrals: Vanesa Tolentino [Provider Group] - 12/02/24 8:40 am (With Eddie) Equipment/Supplies:: No Equipment Needed Diet:: As Tolerated Discharge Orders Discharge Orders: Discharge Order (Routine); Ordered 11/29/24 Ordered By: Grupo Horton DS: Summary Time Spent with Patient providing and/or coordinating discharge services: Greater than 30 minutes Status at Discharge Functional status at discharge: independent ambulation Overall status at discharge: patient is not back to baseline Mental Status: mental status grossly normal Speech and Movement: agitated Mood: anxious mood and angry Affect: labile affect and irritable affect Quality:SDOH Health Related Social Needs: No Data to Display Exam Narrative Exam Narrative: See physical exam with last progress note 11/28/2024. Psych Mental Status: mental status grossly normal Speech and Movement: agitated Mood: anxious mood and angry Affect: labile affect and irritable affect DS: Data Vitals/I&O Vitals and I&O: Vital Signs Temperature 36.5 C 11/29/24 03:29 Temperature Source Tympanic 11/29/24 03:29 Pulse 71 11/29/24 03:29 Pulse Rhythm Regular 11/25/24 23:05 Pulse 76 11/25/24 22:01 Respiratory Rate 19 11/29/24 03:29 Respiratory Effort Normal, Non-Labored 11/25/24 23:05 Respiratory Depth Normal 11/25/24 23:05 Respiratory Pattern Normal 11/25/24 23:05 Blood Pressure 152/63 H 11/29/24 03:29 Blood Pressure Mean 98 11/25/24 22:01 Blood Pressure Position Supine 11/25/24 17:11 Pulse Oximetry 99 11/29/24 03:29 Oxygen Delivery Method Room Air 11/29/24 03:29 Oxygen Flow Rate 0 11/29/24 03:29 Pain Level 0 11/28/24 15:01 Comment RN notified of bp 11/28/24 15:01 Intake & Output 11/28/24 11/28/24 11/29/24 11:59 23:59 11:59 Intake Total 480 / 480 Output Total 1000 / 2150 1150 / 2150 Balance -520 / -1670 -1150 / -1670 Weight 126.6 kg Intake: Oral 480 / 480 Output: Output, Wound Vac (mls) 0 / 0 0 / 0 Urine 1000 / 2150 1150 / 2150 Other: Urine Color Yellow Yellow Yellow Urine Appearance Clear Clear Urine Odor None Normal Comment patient refused to get up to void Stool Size Small Small Stool Characteristics Soft Soft Brown Data Completed and Pending Labs on day of discharge: Labs from last 24 hours 11/29/24 11/28/24 11/28/24 05:35 14:18 06:20 WBC 4.40 RBC 2.41 L Hgb 8.1 L Hct 24.9 L MCV 103 H MCH 33.6 H MCHC 32.5 RDW 15.4 H Plt Count 136 MPV 9.4 Immature Gran % 0.5 Neutrophils % 75.6 Lymphocytes % 15.9 Monocytes % 7.5 Eosinophils % 0.5 Basophils % 0.0 Nucleated RBC % 0.0 Absolute Neutrophils 3.33 Absolute Lymphocytes 0.70 L Absolute Monocytes 0.33 Absolute Eosinophils 0.02 Absolute Basophils 0.00 PT Pending 13.4 H INR Pending 1.4 H Sodium 138 Potassium 3.6 Chloride 107 Carbon Dioxide 20.2 L Anion Gap 10.8 BUN 17 Creatinine 1.1 H Est GFR (CKD-EPI 2020) 55.07 Glucose 92 Calcium 8.7 Magnesium 1.4 L Iron 69 TIBC 169 L Transferrin % Sat 41 Vitamin B12 614 Folate 8.5 L Stool Campylobacter PCR Pending Stool Salmonella PCR Pending Stool Shigella PCR Pending Shiga Toxin (PCR) Pending [facility] All Active Problems (Updated 11/28/24 @ 17:05 by Reny Russell NP) Palliative care patient (Acute) Constipation (Acute) Discharge planning issues (Acute) Folic acid deficiency (Acute) Supratherapeutic INR (Acute) Intractable vomiting (Acute) N&V (nausea and vomiting) (Acute) H/O fasciotomy (Acute) PAD (peripheral artery disease) (Acute) Ischemic cardiomyopathy (Acute) 4/10/25 EF 20-25% with global hypokinesis. -hb Severe protein-calorie malnutrition (Acute) CAD (coronary artery disease) (Chronic) Cardiac arrest (Acute) Iron deficiency anemia (Acute) Fracture, thoracic vertebra, compression (Acute) Rib pain on right side (Acute) Chronic pain syndrome (Chronic) History of pulmonary embolus (PE) (Acute 05/15/13) Finger mass, left (Acute) s/p Left index finger PIP joint cyst excision 08/06/24 Stage 3 chronic kidney disease (Acute) Ganglion cyst of finger (Acute) Cardiomyopathy (Acute) Anticoagulation goal of INR 2 to 3 (Acute) Ganglion cyst (Acute) Bilateral lower extremity edema (Acute) Compression fracture of T9 vertebra (Acute) Crackling sound in left ear (Acute) Nasal vestibulitis (Acute) Tinnitus (Acute) Rotator cuff tear, right (Acute) DEPO MEDROL 12/04/23 Right shoulder pain (Acute) Ocular migraine (Acute) Medication overuse headache (Acute) Migraine headache with aura (Acute) Chronic headache (Acute) Chronic pain syndrome (Chronic 05/23/13) Diabetes (Chronic 12/01/13) Chronic anticoagulation (Acute) Xerostomia (Acute) Angular cheilitis with candidiasis (Acute) Medical History Skin lesion Hyponatremia Left hand pain Seborrheic dermatitis Hypomagnesemia Myositis associated antibody positive Per [facility] Generalized weakness Candidiasis of mouth Gait abnormality Calcinosis cutis Other osteoporosis with current pathological fracture, left ankle and foot, sequela Right arm pain Left foot pain Edema of left foot Thoracic back pain Mid back pain Chest pain Right foot pain Gout Encounter for immunization Abnormal LFTs (liver function tests) Chronic anemia Pt refuses colonoscopy. Feels related to Celiac Disease Sore throat Hoarseness of voice Leg pain Elevated blood pressure reading Fatigue Epigastric pain Nausea & vomiting Zoster Corns Abnormal liver function Carpal tunnel syndrome Corns and callus History of dysmenorrhea (07/19/95) Elevation of level of transaminase and lactic acid dehydrogenase (LDH) Foot pain Plantar fasciitis Pulmonary embolism Microcytic anemia Dyspnea on effort Chronic cough Protein C deficiency Chronic pain in left foot Venous insufficiency of both lower extremities (08/03/15) Ulnar neuropathy of left upper extremity (03/21/16) Spinal stenosis, lumbar region with neurogenic claudication (08/17/15) Smoker Peripheral vascular disease (07/28/14) Stable RAFI 12[place]20[place] [facility] Obesity Nocturnal leg cramps (07/04/16) Migraine Low back pain Irritable bowel syndrome with diarrhea (06/26/17) Hyperlipidemia Gastroesophageal reflux disease Diabetic peripheral neuropathy (08/03/15) OPTICAL EXPRESSIONS; 08/31/15; LEFT EYE 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 Carpal tunnel syndrome of right wrist (08/03/15) Bursitis of right shoulder (07/04/16) GERD (gastroesophageal reflux disease) Diabetes mellitus Pulmonary embolism DVT (deep venous thrombosis) Surgical History History of angioplasty of peripheral vessel left iliac vein stent (10/01/2009) [facility] diameter 18mm, length 60mm, lot [id number] History of carpal tunnel surgery of left wrist Hx of cholecystectomy History of section section Family History Mother Personal history of malignant neoplasm BONE,THYROID,BACK,LIVER,BLADDER,BREAST Father Asthma Sister No problems noted. Brother No problems noted. Social History Smoking/Tobacco Use Status: Current every day Tobacco Type: cigarettes Smoking risk assessment performed?: Yes Alcohol Intake: never Drug use: Never Substance use type: does not use Household members: spouse Housing: house What type of physical activity do you participate in: none Do you feel safe at home: Yes Do you feel safe in your relationship?: Yes Additional Social history: Dtr at side Time Spent with Patient Time Spent with Patient: <45 minutes Time was spent: preparing to see the patient(eg.review tests), obtaining and/or reviewing separately otained hiistory, counseling the patient and care coordination
[2024-11-29 11:13] LABS: Campylobacter PCR Negative (Negative); Salmonella PCR Negative (Negative); Shiga Toxin PCR Negative (Negative); Shigella/Enteroinvasive Ecoli Negative (Negative)
--- NOTE | 2024-11-29 23:45 | PDOC.HHF2F ---
Home Health Referral Home Health Orders Clinical synopsis of why skilled professionals are needed: This is a 68-year-old who had a prolonged course at [facility] recently with cardiovascular issues who was admitted for intractable nausea and vomiting. She was having nausea but no persistent vomiting the day prior to leaving AMA and is tolerating fluids. She has persistent nausea and was asking for Ativan which was not being given at increased dosing but patient was trialed on immediate dissolving Zofran. There is already left a bad taste in her mouth and she was not happy with not being given her Ativan. She decided she want to go home early and she had received Coumadin the day prior to leaving AMA and will follow-up with home health nurses and her PCP on Coumadin dosing as well as treatment of her nausea with Ativan which she has at home. She called her and he will be picking her up. Her exam appears stable from the last progress note performed by Angela Adames NP. As per Dr. Horton, the patient accepted the risk of leaving AGAINST MEDICAL ADVICE and they were considering rehabilitation after her prolonged hospitalization at [facility] but she adamantly refused this. She is a full code. She will need the resumption of all her home health services as per [facility] discharge. Discussed with Dr. Coyle Registered Nurse: Check all that apply Instruct on new or changed medication(s)/assess compliance: Ordered Assess for exacerbation of medical condition, instruct patient/caregivers on signs and symptoms to report for early detection: Ordered Physical Therapist: Check all that apply Increase strength & endurance for safe mobility at home: Ordered To design/establish home maintenance program: Ordered Fall reduction therapy program for patient with history of frequent falls: Ordered Home safety evaluation and teaching/gait training including stair management (if applicable): Ordered 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 Therapist: Evaluate and treat for patient unable to perform ADL/IADL/self-care: Ordered Upper extremity strengthening, range and motion: Ordered Form Setter [employer] Forms: Assist with community resources: Ordered Assist with automatic quilling machine operator care planning: Ordered Home Bound Status Requires the aid of supportive device (check all that apply): Walker Describe why leaving home would require a considerable and taxing effort: Requires frequent rest periods Encounter Date and Reason: I certify that a FTF encounter for this patient was performed on November 29, 2024 and that such encounter was related to the primary reason the patient requires home health services. The encounter was conducted in the following manner: By me as the certifying physician, CARTRIDGE ASSEMBLER, PA or By an inpatient physician, CARTRIDGE ASSEMBLER or PA during an inpatient stay who communicated findings to me, Certification And Authentication I certify that I composed the above information based on my clinical judgment relating to this patient's medical condition and, if applicable, clinical findings communicated to me by the NPP or inpatient physician who performed the FTF encounter. Name of Provider that will be monitoring home health services: PCP
== END 2024-11-29 05:30 | disposition left against medical advice (07) | DRG 392 ==
LOC: ER 20:28 → MS 22:19
PROVIDERS: Nurse Practitioner Family; Admitting Provider Family Medicine; Emergency Provider Emergency Medicine; PCP Nurse Practitioner Family; Responsible Provider Nurse Practitioner Acute Care; Visit Provider Family Medicine
DX: A08.4 Viral intestinal infection, unspecified (principal); D68.59 Other primary thrombophilia; E46 Unspecified protein-calorie malnutrition; I25.10 Atherosclerotic heart disease of native coronary artery without angina pectoris; Z79.84 Long term (current) use of oral hypoglycemic drugs; E11.22 Type 2 diabetes mellitus with diabetic chronic kidney disease; N18.30 Chronic kidney disease, stage 3 unspecified; Z86.711 Personal history of pulmonary embolism; F17.210 Nicotine dependence, cigarettes, uncomplicated; Z95.5 Presence of coronary angioplasty implant and graft; I25.5 Ischemic cardiomyopathy; I73.9 Peripheral vascular disease, unspecified; G89.4 Chronic pain syndrome; G43.109 Migraine with aura, not intractable, without status migrainosus; I87.2 Venous insufficiency (chronic) (peripheral); E78.5 Hyperlipidemia, unspecified; K21.9 Gastro-esophageal reflux disease without esophagitis; E11.42 Type 2 diabetes mellitus with diabetic polyneuropathy; K58.0 Irritable bowel syndrome with diarrhea; M48.062 Spinal stenosis, lumbar region with neurogenic claudication; Z95.828 Presence of other vascular implants and grafts; Z86.74 Personal history of sudden cardiac arrest; Z86.718 Personal history of other venous thrombosis and embolism; E53.8 Deficiency of other specified B group vitamins; R53.1 Weakness; K59.00 Constipation, unspecified
CPT/HCPCS: 36410; 00123; 36415; 80048; 80053; 82805; 84145; 85027; 87505; 87637; 93005; 96361; 96365; 96366; 96375; 96376; 97162; 97530; 99285; 81003; 81015; 82607; 82746; 83540; 83550; 83605; 83735; 83880; 84439; 84443; 84484; 85025; 85610; 85730; 86140; 93010; 99222; 99232; 99233; 99239; G0378; J0780; J1790; J2060; J2470; J3360; J3475

== ENCOUNTER 2024-12-09 03:56 | Outpatient (CLI) | payer MEDICARE, SELFPAY ==
[2024-12-09 12:24] LABS: Abs Immature Grans 0.01 10^3/uL (0.0-0.06); Absolute Basophil Count 0.02 10^3/uL (0.0-0.2); Absolute Eosinophil Count 0.13 10^3/uL (0.0-0.7); Absolute Lymphocyte Count 0.83 10^3/uL (1.2-3.4); Absolute Monocyte Count 0.29 10^3/uL (0.1-0.8); Absolute Neutrophil Count 3.06 10^3/uL (1.2-6.7); Basophils % 0.5 %; HCT 26.6 % (36.0-46.0); HGB 8.8 g/dL (11.2-15.7); Immature Grans % 0.2 %; Lymphocytes % 19.1 %; MCH 33.1 pg (27.0-33.0); MCHC 33.1 % (32.0-36.0); MCV 100 fL (80-95); MPV 9.4 fL (8.0-11.0); Monocytes % 6.7 %; Neutrophils % 70.5 %; Platelet Count 119 10^3/uL (130-400); RBC 2.66 10^6/uL (3.93-5.22); RDW 13.6 % (11.7-14.6); RDW-SD 49.9 fL; WBC 4.34 10^3/uL (4.4-10.8)
[2024-12-09 12:39] LABS: INR 3.3 (0.9-1.1); Prothrombin Time 30.8 sec (9.1-11.1)
[2024-12-09 12:55] LABS: ALT 21 U/L (14-59); AST 22 U/L (15-37); Albumin 2.8 g/dL (3.4-5.0); Alkaline Phosphatase 224 U/L (46-116); Anion Gap 5.7 mmol/L (3-11); BUN 11 mg/dL (7-18); Bilirubin, Total 0.5 mg/dL (0.2-1.0); CO2 27.3 mmol/L (21.0-32.0); CREATININE 1.3 mg/dL (0.55-1.02); Calcium 8.5 mg/dL (8.5-10.1); Chloride 102 mmol/L (98-107); Estimated GFR 45.07 (mL/min/1.73m2); Glucose 126 mg/dL (74-106); Magnesium 0.9 mg/dL (1.8-2.4); Potassium 4.6 mmol/L (3.5-5.1); Sodium 135 mmol/L (136-145); Total Protein 7.1 g/dL (6.4-8.2)
== END 2024-12-09 03:57 | disposition home or self-care (01) ==
PROVIDERS: PCP Nurse Practitioner Family; Visit Provider Nurse Practitioner Family
DX: Z79.01 Long term (current) use of anticoagulants (principal); D50.9 Iron deficiency anemia, unspecified; I25.10 Atherosclerotic heart disease of native coronary artery without angina pectoris; E43 Unspecified severe protein-calorie malnutrition; I25.5 Ischemic cardiomyopathy; I73.9 Peripheral vascular disease, unspecified; E83.42 Hypomagnesemia; Z51.81 Encounter for therapeutic drug level monitoring
CPT/HCPCS: 36415; 80053; 83735; 85025; 85610

== ENCOUNTER 2024-12-16 16:26 | Outpatient (REF) | payer MEDICARE, SELFPAY ==
[2024-12-16 16:08] LABS: Bilirubin Negative (Negative); Blood Negative (Negative); Clarity Clear (Clear); Glucose Negative (Negative); Ketones Negative (Negative); Leukocyte Esterase Negative (Negative); Nitrite Negative (Negative); Specific Gravity 1.015 (1.005-1.025); Urobilinogen 0.2 mg/dL (Up to 0.2); pH 5.5 (5-8)
[2024-12-16 16:27] LABS: Bacteria Rare HPF (Negative); C & S Indicated? No; Casts 0-2 Hyaline LPF (Negative); Crystals Negative HPF (Negative); Epithelial Cells Moderate HPF (Negative); Mucus Trace (Negative); Other Cells Rare Transitional (Negative); RBC Negative HPF (0-2); WBC 0-2 HPF (0-5)
== END 2024-12-16 16:27 | disposition home or self-care (01) ==
LOC: LBN 16:26
PROVIDERS: PCP Nurse Practitioner Family; Visit Provider Nurse Practitioner Family
DX: R10.9 Unspecified abdominal pain (principal); R30.0 Dysuria
CPT/HCPCS: 81003; 81015

== ENCOUNTER 2025-01-15 09:05 | Outpatient (CLI) | payer MEDICARE, SELFPAY ==
[2025-01-15 09:57] LABS: INR 1.3 (0.9-1.1); Prothrombin Time 12.8 sec (9.1-11.1)
== END 2025-01-15 09:06 | disposition home or self-care (01) ==
LOC: LBO 09:05
PROVIDERS: PCP Nurse Practitioner Family; Visit Provider Nurse Practitioner Family
DX: Z79.01 Long term (current) use of anticoagulants (principal); Z86.711 Personal history of pulmonary embolism
CPT/HCPCS: 36415; 85610

== ENCOUNTER 2025-01-19 15:14 | Emergency (ER) | payer MEDICARE, SELFPAY ==
[2025-01-19 15:19] VITALS: BP 130/79; PULSE 99; RESP 18; TEMP 36.8; O2SAT 90
--- NOTE | 2025-01-19 15:44 | ED.GENADUL_ITS ---
Discharge Plan Disposition Patient Disposition: Eloped Discharge Details Chief Complaint: Orthopedic Clinical Impression: Back pain, thoracic, Chest pain Primary Care Provider: Renzo Castano ED Provider: Nat Cervantes Home Meds and New Rx's Prescriptions: No Action (DME) blood-glucose meter [OneTouch Ultra2 Meter] Misc See Rx Instructions .Route Qty: 1 2RF Rx Instructions: Twice daily ciclopirox 0.77 % suspension 1 applic topical DAILY 42 Days Qty: 60 2RF clopidogrel [Plavix] 75 mg tablet 75 mg PO DAILY nitroglycerin 0.4 mg tablet, sublingual 0.4 mg sublingual Q5M PRN Rx Instructions: do not exceed 3 doses per episode ferrous sulfate 325 mg (65 mg iron) tablet 325 mg PO DAILY Qty: 90 3RF dapsone 25 mg tablet 50 mg PO BID Qty: 240 3RF nystatin 100,000 unit/mL suspension 1 ml PO QID Qty: 473 0RF Rx Instructions: swish and swallow (DME) blood sugar diagnostic Strip 1 ea Miscellaneous BID Qty: 200 5RF Rx Instructions: Twice a day testing warfarin 5 mg tablet 5 mg PO QPM Qty: 90 3RF Protocol: Dose Management Condition: Sunday Dose/Route: 5 mg Instruction: 1 x 5 mg tablet Condition: Sunday Dose/Route: 5 mg Instruction: 1 x 5 mg tablet Condition: Sunday Dose/Route: 2.5 mg Instruction: 0.5 x 5 mg tablets Condition: Sunday Dose/Route: 5 mg Instruction: 1 x 5 mg tablet Condition: Dose/Route: 5 mg Instruction: 1 x 5 mg tablet Condition: Sunday Dose/Route: 2.5 mg Instruction: 0.5 x 5 mg tablets Condition: Sunday Dose/Route: 2.5 mg Instruction: 0.5 x 5 mg tablets Protocol Text: Adjustment Start Date: 01/15/25 INR Value: 1.3 INR Date: 01/15/25 Recheck Date: 01/22/25 bumetanide 2 mg tablet 2 mg PO DAILY Qty: 30 3RF Patient Comments: reports 1mg prochlorperazine maleate [Compazine] 10 mg tablet 10 mg PO TID PRN Rx Instructions: [place] [facility] [place] hydroxide 400 mg (170 mg magnesium) tablet,chewable 400 mg PO .QD Qty: 90 3RF (DME) lancets [OneTouch Delica Plus Lancet] 33 gauge misc See Rx Instructions .ROUTE .COMPLEX Qty: 100 4RF Dose Instruction: USE ONCE DAILY Rx Instructions: USE ONCE DAILY hydrocodone-acetaminophen 10-325 mg tablet 1 tab PO Q4H MDD 6 tabs PRN (Reason: pain) Qty: 168 0RF naloxone [Narcan] 4 mg/actuation spray,non-aerosol 4 mg intranasal Q3M PRN (Reason: opioid overdose) Qty: 2 0RF Rx Instructions: spray 1 dose into ONE nostril; alternate nostrils w each dose until help arrives famotidine 40 mg tablet 40 mg PO DAILY lansoprazole 15 mg capsule,delayed release(DR/EC) 15 mg PO DAILY lorazepam [Ativan] 0.5 mg tablet 0.5 mg PO DAILY PRN (Reason: anxiety) Qty: 28 2RF atorvastatin 80 mg tablet 80 mg PO DAILY gabapentin 300 mg capsule 300 mg PO BID Discharge Data Discharge Date/Time-TO BE ENTERED AT DEPARTURE: 01/19/25 17:33 HPI General Date/Time Provider Initiated Documentation: 01/19/25 15:22 . HPI Narrative: Janna is a 69-year-old female who presents to the emergency department today for evaluation of upper back pain between her shoulder that started 4 days ago. This is accompanied by sternal chest discomfort that comes and goes. She reports that the pain feels similar to when she had a vertebral fracture 6 months ago in the same place. Pain is rated 9 out of 10, radiates to the chest and left side of back, says does not feel like it is her heart. Chest pain is rated 2-3/10, comes and goes, unable to identify any aggravating or alleviating factors. She does have some difficulty breathing due to pain. She reports she had a headache last night, resolved today. No changes in leg numbness/weakness, bowel/bladder function, fevers/chills, respiratory symptoms such as congestion/sore throat/cough, arm weakness, sweating, nausea/vomiting, change in p.o. intake, headache, dizziness, vision changes. Applied lidocaine patch this morning and took hydrocodone at 1245 hours and Tylenol at 1300 hours with no improvement of symptoms. Past medical history significant for T9 compression fracture (Mar 2024), diabetes, osteoporosis with pathologic fractures, gait abnormality, venous insufficiency, lumbar spinal stenosis, peripheral vascular disease, IBS, HLD, celiac disease, PE, and DVT. Anticoagulated on warfarin. Reports she is compliant with all of her medications. Accompanied by daughter. Related Data Home Medications ?Medication ?Instructions ?Recorded ?Confirmed blood-glucose meter ([employer]Touch #1 ea 06/15/23 12/18/24 Ultra2 Meter) blood sugar diagnostic #200 strips 07/31/23 12/18/24 ferrous sulfate 325 mg (65 mg 325 mg PO DAILY #90 tabs 03/26/24 01/19/25 iron) tablet warfarin 5 mg tablet 5 mg PO QPM #90 tabs 06/26/24 01/19/25 bumetanide 2 mg tablet 2 mg PO DAILY #30 tabs 06/30/24 01/19/25 ciclopirox 0.77 % topical 1 applic topical DAILY 6 weeks #60 07/23/24 01/19/25 suspension mL dapsone 25 mg tablet 50 mg (2 x 25 mg) PO BID #240 08/07/24 01/19/25 tab-caps nystatin 100,000 unit/mL oral 1 ml PO QID #473 mL 08/07/24 01/19/25 suspension clopidogrel 75 mg tablet (Plavix) 75 mg PO DAILY 11/25/24 01/19/25 nitroglycerin 0.4 mg sublingual 0.4 mg sublingual Q5M PRN 11/25/24 01/19/25 tablet atorvastatin 80 mg tablet 80 mg PO DAILY 11/26/24 01/19/25 gabapentin 300 mg capsule 300 mg PO BID 11/26/24 01/19/25 prochlorperazine maleate 10 mg 10 mg PO TID PRN 11/27/24 01/19/25 tablet (Compazine) magnesium hydroxide 400 mg (170 mg 400 mg PO .QD #90 tabs 12/04/24 01/19/25 magnesium) chewable tablet lancets 33 gauge ([employer]Touch Delanaya #100 ea 12/10/24 12/18/24 Plus Lancet) hydrocodone 10 mg-acetaminophen 1 tab PO Q4H PRN pain #168 tabs 12/24/24 01/19/25 325 mg tablet naloxone 4 mg/actuation nasal 4 mg intranasal Q3M PRN opioid 12/24/24 01/19/25 spray (Narcan) overdose #2 ea famotidine 40 mg tablet 40 mg PO DAILY 01/06/25 01/19/25 lansoprazole 15 mg capsule,delayed 15 mg PO DAILY 01/06/25 01/19/25 release lorazepam 0.5 mg tablet (Ativan) 0.5 mg PO DAILY PRN anxiety #28 01/19/25 01/19/25 tabs Previous Rx's ?Medication ?Instructions ?Recorded blood-glucose meter ([employer]Clean PET #1 ea 06/15/23 Ultra2 Meter) blood sugar diagnostic #200 strips 07/31/23 ferrous sulfate 325 mg (65 mg 325 mg PO DAILY #90 tabs 03/26/24 iron) tablet warfarin 5 mg tablet 5 mg PO QPM #90 tabs 06/26/24 bumetanide 2 mg tablet 2 mg PO DAILY #30 tabs 06/30/24 ciclopirox 0.77 % topical 1 applic topical DAILY 6 weeks #60 07/23/24 suspension mL dapsone 25 mg tablet 50 mg (2 x 25 mg) PO BID #240 08/07/24 tab-caps nystatin 100,000 unit/mL oral 1 ml PO QID #473 mL 08/07/24 suspension magnesium hydroxide 400 mg (170 mg 400 mg PO .QD #90 tabs 12/04/24 magnesium) chewable tablet lancets 33 gauge ([employer] Delica #100 ea 12/10/24 Plus Lancet) hydrocodone 10 mg-acetaminophen 1 tab PO Q4H PRN pain #168 tabs 12/24/24 325 mg tablet naloxone 4 mg/actuation nasal 4 mg intranasal Q3M PRN opioid 12/24/24 spray (Narcan) overdose #2 ea lorazepam 0.5 mg tablet (Ativan) 0.5 mg PO DAILY PRN anxiety #28 01/19/25 tabs Allergies Allergy/AdvReac Type Severity Reaction Status Date / Time rizatriptan benzoate (From Allergy Severe tongue Verified 01/19/25 15:22 Maxalt) swelling, diff.swallowing per pt azithromycin Allergy Intermediate SOB-pt Verified 01/19/25 15:22 reported sulfamethoxazole Allergy Unknown Other (See Verified 01/19/25 15:22 Comment) trimethoprim (From Bactrim) Allergy Unknown Other (See Verified 01/19/25 15:22 Comment) adhesive Allergy RASH Verified 01/19/25 15:22 wheat Allergy SKIN RASH Verified 01/19/25 15:22 sertraline AdvReac Intermediate sweating Verified 01/19/25 15:22 torsemide AdvReac Intermediate Other (See Verified 01/19/25 15:22 Comment) tramadol AdvReac Intermediate Nausea Verified 01/19/25 15:22 venlafaxine AdvReac Intermediate sweating,fa Verified 01/19/25 15:22 tigue,malai se amoxicillin AdvReac GI UPSET Verified 01/19/25 15:22 ondansetron (From Zofran) AdvReac Other (See Verified 01/19/25 15:22 Comment) promethazine AdvReac jitters Verified 01/19/25 15:22 General Stated Complaint: Orthopedic JOSE JUAN: 4 Exam Narrative Exam Narrative: General Appearance: Normal. Vital signs: Within normal limits. Respiratory: Easy work of breathing, lung sounds clear bilaterally Cardiovascular: Normal heart sounds, regular rate and rhythm. Radial pulses intact bilaterally. Mild pedal edema noted bilaterally Back, Musculoskeletal: Tenderness on palpation of anterior chest. Tenderness to palpation of T-spine around T9. No obvious deformity/step-offs. No overlying skin lesions. Extremities: 5/5 muscle strength to lower extremities. Skin: Warm and dry, no rash. Psychiatric: Normal. Course Vital Signs Vital signs: Vital Signs Temperature 36.8 C 01/19/25 15:19 Pulse 99 H 01/19/25 15:19 Respiratory Rate 18 01/19/25 15:19 Blood Pressure 130/79 01/19/25 15:19 Pulse Oximetry 90 L 01/19/25 15:19 Temperature 36.8 C 01/19/25 15:19 Temperature Source Oral 01/19/25 15:19 Pulse 99 H 01/19/25 15:19 Respiratory Rate 18 01/19/25 15:19 Blood Pressure 130/79 01/19/25 15:19 Blood Pressure Position Sitting 01/19/25 15:19 Pulse Oximetry 90 L 01/19/25 15:19 Oxygen Delivery Method Room Air 01/19/25 15:19 Oxygen Flow Rate 0 01/19/25 15:19 Medical Decision Making Initial Assessment: 69-year-old female with severe back pain and chest discomfort. Differential Diagnosis includes but is not limited to: Pathologic thoracic spine fracture, aortic dissection, SC, rib fracture, muscle spasm, GERD/esophagitis, pneumothorax, neoplasm. No red flags concerning for spinal cord compression. ED Course: - Applied fresh lidocaine patch for back pain. - Consider opioids for pain management - Imaging studies ordered to check for new fractures or abnormalities. - Comprehensive cardiac evaluation. - Imaging studies to assess aorta and ribs. Janna became very angry after nursing staff attempted to place an IV, this required multiple attempts. When an IV was successfully cannulated she informed RN to remove it. She became verbally abusive to staff, including myself. She began yelling, saying that she is going to leave if she does not get the x-rays she wanted. I advised her that with her significant past medical history there is a serious concern that this could be of serious cardiac etiology and recommended cardiac workup. She refused, however said she would be open to having the thoracic spine x-rays. I did place these orders, but she eloped prior to obtaining images. Final Assessment: Severe back pain likely due to history of T9 compression fracture and osteoporosis. Chest discomfort possibly related to recent heart att ack, but aortic pathology also seriously considered. Imaging and cardiac evaluation planned, though patient declined this workup I did interpret the following tests that were obtained: Troponin 39, this is consistent with previous troponins obtained on 11/25/2024, likely patient baseline. CBC, CMP, magnesium all reassuring and unchanged from baseline Clinical Impression: - Back pain - Chest discomfort Disposition: - Declined medically advised treatment/AMA, eloped prior to completion of imaging. MDM Components Evaluation: - Number of Differential Diagnoses or Management Options: Back pain, chest discomfort. - Amount and Complexity of Data Reviewed: Imaging studies, comprehensive cardiac evaluation. - Risk of Complication and Morbidity or Mortality: High due to history of osteoporosis, T9 compression fracture, and recent heart attack. Patient consented to the use of ERASMO 1. I explained the current situation and condition to the patient, concern for cardiac or aortic pathology due to back pain radiating to the sternum and patient with significant cardiac history, including recent SC 2. I explained the recommended treatment for this condition -CTA, IV, blood work 3. I explained the risk of not having the recommended treatment, including or disability. 4. The patient understands this information has no questions, and repeated back this information. 5. The patient states that she does not want to have cardiac workup performed, just wanted x-rays. 6. Mental status is lucid and the patient has decision-making capacity. 7. Patient eloped prior to T-spine x-rays. Quality:SDOH Health Related Social Needs: No Data to Display PFSH All Active Problems (Updated 01/19/25 @ 17:41 by Nat Hardin) Chest pain (Acute) Back pain, thoracic (Acute) Impaired instrumental activities of daily living (Acute) Financial difficulties (Acute) Encounter for medication review (Acute) ACP (advance care planning) (Acute) Anxiety (Chronic) Hepatic encephalopathy (Acute) Palliative care patient (Acute) Discharge planning issues (Acute) Folic acid deficiency (Acute) Intractable vomiting (Acute) N&V (nausea and vomiting) (Acute) H/O fasciotomy (Acute) PAD (peripheral artery disease) (Acute) Ischemic cardiomyopathy (Acute) 11/27/24 EF 20-25% with global hypokinesis. -hb Severe protein-calorie malnutrition (Acute) CAD (coronary artery disease) (Chronic) Cardiac arrest (Acute) Iron deficiency anemia (Acute) Fracture, thoracic vertebra, compression (Acute) Rib pain on right side (Acute) Chronic pain syndrome (Chronic) History of pulmonary embolus (PE) (Acute 05/15/13) Finger mass, left (Acute) s/p Left index finger PIP joint cyst excision 08/06/24 Stage 3 chronic kidney disease (Acute) Ganglion cyst of finger (Acute) Cardiomyopathy (Acute) Anticoagulation goal of INR 2 to 3 (Acute) Ganglion cyst (Acute) Bilateral lower extremity edema (Acute) Compression fracture of T9 vertebra (Acute) Crackling sound in left ear (Acute) Nasal vestibulitis (Acute) Tinnitus (Acute) Rotator cuff tear, right (Acute) DEPO MEDROL 12/04/23 Right shoulder pain (Acute) Ocular migraine (Acute) Medication overuse headache (Acute) Migraine headache with aura (Acute) Chronic headache (Acute) Chronic pain syndrome (Chronic 05/23/13) Diabetes (Chronic 12/01/13) Chronic anticoagulation (Acute) Xerostomia (Acute) Angular cheilitis with candidiasis (Acute) Medical History Constipation Supratherapeutic INR Skin lesion Hyponatremia Left hand pain Seborrheic dermatitis Hypomagnesemia Myositis associated antibody positive Per [facility] Generalized weakness Candidiasis of mouth Gait abnormality Calcinosis cutis Other osteoporosis with current pathological fracture, left ankle and foot, sequela Right arm pain Left foot pain Edema of left foot Thoracic back pain Mid back pain Chest pain Right foot pain Gout Encounter for immunization Abnormal LFTs (liver function tests) Chronic anemia Pt refuses colonoscopy. Feels related to Celiac Disease Sore throat Hoarseness of voice Leg pain Elevated blood pressure reading Fatigue Epigastric pain Zoster Corns Abnormal liver function Carpal tunnel syndrome Corns and callus History of dysmenorrhea (07/19/95) Elevation of level of transaminase and lactic acid dehydrogenase (LDH) Foot pain Plantar fasciitis Pulmonary embolism Microcytic anemia Dyspnea on effort Chronic cough Protein C deficiency Chronic pain in left foot Venous insufficiency of both lower extremities (08/03/15) Ulnar neuropathy of left upper extremity (03/21/16) Spinal stenosis, lumbar region with neurogenic claudication (08/17/15) Smoker Peripheral vascular disease (07/28/14) [place] [facility] [place]esity Nocturnal leg cramps (07/04/16) Migraine Low back pain Irritable bowel syndrome with diarrhea (06/26/17) Hyperlipidemia Gastroesophageal reflux disease Diabetic peripheral neuropathy (08/03/15) OPTICAL EXPRESSIONS; 08/31/15; LEFT EYE 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 Carpal tunnel syndrome of right wrist (08/03/15) Bursitis of right shoulder (07/04/16) Nausea & vomiting GERD (gastroesophageal reflux disease) Diabetes mellitus Pulmonary embolism DVT (deep venous thrombosis) Surgical History History of angioplasty of peripheral vessel left iliac vein stent [place]/2009[place] [facility] [place] 18[place], length 60mm, lot [id number] History of carpal tunnel surgery of left wrist Hx of cholecystectomy History of section section Family History Mother Personal history of malignant neoplasm BONE,THYROID,BACK,LIVER,BLADDER,BREAST Father Asthma Sister No problems noted. Brother No problems noted. Social History Smoking/Tobacco Use Status: Current every day Tobacco Type: cigarettes Smoking risk assessment performed?: Yes Alcohol Intake: never Drug use: Never Substance use type: does not use Household members: spouse Housing: house What type of physical activity do you participate in: none Do you feel safe at home: Yes Do you feel safe in your relationship?: Yes Additional Social history: Dtr at side
--- NOTE | 2025-01-19 16:00 | RT.EKG_ITS ---
APPROVED REPORT Exam: Resting ECG Reason for Exam: back pain radiating to chest Patient Location: E HR:96 bpm ECG Measurements Heart Rate 96 AXIS KS 159 P 44 QRSd 76 QRS -13 QT 377 T 121 QTc 476 Conclusion Sinus rhythm...normal P axis, V-rate 60- 99 Probable left atrial enlargement...P >50mS, <-0.10mV V1 LVH with secondary repolarization abnormality...multi-LVH criteria, abnrm ST-T Anterior infarct, old...Q >40mS, abnormal ST-T, V2-V5
[2025-01-19 16:21] LABS: Abs Immature Grans 0.01 10^3/uL (0.0-0.06); Absolute Basophil Count 0.03 10^3/uL (0.0-0.2); Absolute Eosinophil Count 0.08 10^3/uL (0.0-0.7); Absolute Lymphocyte Count 0.98 10^3/uL (1.2-3.4); Absolute Monocyte Count 0.39 10^3/uL (0.1-0.8); Absolute Neutrophil Count 3.47 10^3/uL (1.2-6.7); Basophils % 0.6 %; Eosinophils % 1.6 %; HCT 32.7 % (36.0-46.0); HGB 10.5 g/dL (11.2-15.7); Immature Grans % 0.2 %; Lymphocytes % 19.8 %; MCH 32.6 pg (27.0-33.0); MCHC 32.1 % (32.0-36.0); MCV 102 fL (80-95); MPV 9.4 fL (8.0-11.0); Monocytes % 7.9 %; Neutrophils % 69.9 %; Platelet Count 156 10^3/uL (130-400); RBC 3.22 10^6/uL (3.93-5.22); RDW 13.8 % (11.7-14.6); RDW-SD 51.3 fL; WBC 4.96 10^3/uL (4.4-10.8)
[2025-01-19 17:18] LABS: ALT 21 U/L (14-59); AST 29 U/L (15-37); Albumin 3.3 g/dL (3.4-5.0); Alkaline Phosphatase 220 U/L (46-116); Anion Gap 7.7 mmol/L (3-11); BUN 20 mg/dL (7-18); Bilirubin, Total 0.4 mg/dL (0.2-1.0); CO2 29.3 mmol/L (21.0-32.0); CREATININE 1.3 mg/dL (0.55-1.02); Calcium 9.1 mg/dL (8.5-10.1); Chloride 101 mmol/L (98-107); Estimated GFR 44.79 (mL/min/1.73m2); Glucose 120 mg/dL (74-106); Magnesium 1.8 mg/dL (1.8-2.4); Potassium 4.7 mmol/L (3.5-5.1); Sodium 138 mmol/L (136-145); Troponin I 39 ng/L (<or=51)
[2025-01-19] MEDS: HYDROcodone 5/Acetaminophen 325 TAB PO (17:23)
[2025-01-19] MEDS: Lidocaine 5% Patch 1 PATCH TP (17:23)
== END 2025-01-19 17:33 | disposition left against medical advice (07) ==
PROVIDERS: Emergency Provider Nurse Practitioner Family; PCP Nurse Practitioner Family
DX: M54.6 Pain in thoracic spine (principal); R07.9 Chest pain, unspecified; E11.22 Type 2 diabetes mellitus with diabetic chronic kidney disease; I12.9 Hypertensive chronic kidney disease with stage 1 through stage 4 chronic kidney disease, or unspecified chronic kidney disease; N18.30 Chronic kidney disease, stage 3 unspecified; E78.5 Hyperlipidemia, unspecified; I25.10 Atherosclerotic heart disease of native coronary artery without angina pectoris; E11.40 Type 2 diabetes mellitus with diabetic neuropathy, unspecified; F17.210 Nicotine dependence, cigarettes, uncomplicated; Z86.718 Personal history of other venous thrombosis and embolism; Z86.711 Personal history of pulmonary embolism; Z79.01 Long term (current) use of anticoagulants; Z79.02 Long term (current) use of antithrombotics/antiplatelets; Z53.29 Procedure and treatment not carried out because of patient's decision for other reasons
CPT/HCPCS: 80053; 93005; 99284; 83735; 84484; 85025; 93010

== ENCOUNTER 2025-02-02 00:14 | Outpatient (CLI) | payer MEDICARE, SELFPAY ==
--- NOTE | 2025-02-02 08:00 | DI.RAD_ITS ---
Exam(s) XR THORACIC SPINE COMPLETE EXAM: XR THORACIC SPINE COMPLETE CLINICAL HISTORY: Worsening thoracic back pain,m54.6. TECHNIQUE: 2D digital imaging was performed of the thoracic spine. Views were obtained. AP, swimmer's and lateral views were obtained. COMPARISON: CR XR THORACIC SPINE COMPLETE from 03/21/2024 CR XR RIBS ONLY RT from 08/26/2024 FINDINGS: BONES: There is a stable T9 compression fracture deformity. There is also stable compression of T8. There is compression of T7 which has mildly progressed since the prior examination from 03/21/2024. Age-appropriate degenerative changes are present throughout the thoracic spine. The bones appear osteopenic. DISKS:There is a right convex scoliosis again seen. There is exaggeration of the thoracic kyphosis noted. Interverebral disc spaces are maintained. SOFT TISSUE: There are surgical clips in the upper abdomen. There is a the proximal end of stent is seen on the film inferiorly. IMPRESSION: 1. Stable T8 and T9 compression deformities. 2. Mild progression of the T7 compression deformity since 03/21/2024. DATA REPOSITORY: RADIATION DOSE DELIVERED:
== END 2025-02-02 00:34 ==
LOC: DI 00:14
PROVIDERS: PCP Nurse Practitioner Family; Visit Provider Nurse Practitioner Family
DX: M51.24 Other intervertebral disc displacement, thoracic region (principal)
CPT/HCPCS: 72072

== ENCOUNTER 2025-02-03 20:29 | Emergency (ER) | payer MEDICARE, SELFPAY ==
[2025-02-03] VITALS (7 sets, daily range): BP systolic 168–174; BP diastolic 46–77; PULSE 80–101; RESP 15–20; TEMP 36.7; O2SAT 91–96
--- NOTE | 2025-02-03 20:30 | DI.RAD_ITS ---
Exam(s) XR CHEST 2V PA LATERAL EXAM: XR CHEST 2V PA LATERAL CLINICAL HISTORY: Cough, SOB TECHNIQUE: 2D digital imaging was performed of the chest. Two images were obtained. PA and lateral views were obtained. CR XR CHEST 2V PA LATERAL from 10/05/2018 CR XR CHEST 2V PA LATERAL from 11/24/2021 CR XR CHEST 2V PA LATERAL from 07/18/2022 CR XR RIBS ONLY RT from 08/26/2024 CR XR THORACIC SPINE COMPLETE from 02/02/2025 FINDINGS: MEDIASTINUM: Normal. HEART: Normal. PULMONARY VASCULATURE: Normal. LUNGS: No focal consolidating infiltrates are present. PLEURAL SPACE: No pleural effusion or pneumothorax. BONE:Within normal limits for the patient's age. There is a stable T9 compression fracture. As noted on the examination from 02/02/2025, the T7 compression fracture has progressed since the prior examination from 03/21/2024. OTHER FINDINGS:There is an ovoid density projected over the lateral aspect of the left hemithorax. This may be associated with the left fourth rib. It was not present on prior examinations. IMPRESSION: 1. No focal consolidating infiltrates. 2. Ovoid density projected over the lateral aspect of the left hemithorax. It may be associated with the left 4th rib and represent a healing fracture. A pleural plaque or pulmonary nodule cannot be excluded. A CT scan of the chest is recommended for further evaluation. Unexpected findings DATA REPOSITORY: RADIATION DOSE DELIVERED:
--- NOTE | 2025-02-03 20:51 | W.ED.GENAD ---
Discharge Plan Disposition Patient Disposition: Home Condition: Stable Discharge Details Clinical Impression: URI (upper respiratory infection), COPD exacerbation Primary Care Provider: Renzo Castano ED Provider: Hellen Swenson Home Meds and New Rx's Prescriptions: New doxycycline hyclate 100 mg tablet 100 mg PO BID 7 Days Qty: 14 0RF prednisone 20 mg tablet 40 mg PO DAILY 5 Days Qty: 10 0RF Continued (DME) blood-glucose meter [Balandrasuch Ultra2 Meter] [facility] [place] Instructions .Route Qty: 1 2RF Rx Instructions: Twice daily clopidogrel [Plavix] 75 mg tablet 75 mg PO DAILY nitroglycerin 0.4 mg tablet, sublingual 0.4 mg sublingual Q5M PRN Rx Instructions: do not exceed 3 doses per episode dapsone 25 mg tablet 50 mg PO BID Qty: 240 3RF nystatin 100,000 unit/mL suspension 1 ml PO QID Qty: 473 0RF Rx Instructions: swish and swallow bumetanide 1 mg tablet 1 mg PO DAILY Patient Comments: TAKE ONE TABLET BY MOUTH EVERY DAY (SEE DISCHARGE INSTRUCTIONS FOR WHEN TO RESUME BUMETANIDE) fentanyl 12 mcg/hr patch 72 hour 1 patch transdermal Q72H MDD 1 patch Qty: 5 0RF (DME) blood sugar diagnostic Strip 1 ea Miscellaneous BID Qty: 200 5RF Rx Instructions: Twice a day testing bumetanide 2 mg tablet 2 mg PO DAILY Qty: 30 3RF Patient Comments: reports 1mg prochlorperazine maleate [Compazine] 10 mg tablet 10 mg PO TID PRN Rx Instructions: 11/27/24 [facility] [place]hb (DME) lancets [OneTouch Delica Plus Lancet] 33 gauge [facility] [place] Rx Instructions .ROUTE .COMPLEX Qty: 100 4RF Dose Instruction: USE ONCE DAILY Rx Instructions: USE ONCE DAILY naloxone [Narcan] 4 mg/actuation spray,non-aerosol 4 mg intranasal Q3M PRN (Reason: opioid overdose) Qty: 2 0RF Rx Instructions: spray 1 dose into ONE nostril; alternate nostrils w each dose until help arrives famotidine 40 mg tablet 40 mg PO DAILY lansoprazole 15 mg capsule,delayed release(DR/EC) 15 mg PO DAILY lorazepam [Ativan] 0.5 mg tablet 0.5 mg PO DAILY PRN (Reason: anxiety) Qty: 28 2RF hydrocodone-acetaminophen 10-325 mg tablet 1 tab PO Q4H MDD 6 tabs PRN (Reason: pain) Qty: 168 0RF triamcinolone acetonide 0.1 % cream 1 applic topical BID PRN (Reason: rash) Qty: 15 0RF ferrous gluconate 324 mg (37.5 mg iron) tablet 324 mg PO .COMPLEX Qty: 30 0RF Rx Instructions: 324 mg orally M,W,F; Lactobacillus acidophilus 1 billion cell capsule 1,000 mmu cells PO DAILY Qty: 30 0RF gabapentin 300 mg capsule 300 mg PO BID Qty: 180 4RF warfarin 5 mg tablet 5 mg PO QPM Qty: 90 3RF Protocol: Dose Management Condition: Sunday Dose/Route: 5 mg Instruction: 1 x 5 mg tablet Condition: Sunday Dose/Route: 5 mg Instruction: 1 x 5 mg tablet Condition: Sunday Dose/Route: 2.5 mg Instruction: 0.5 x 5 mg tablets Condition: Sunday Dose/Route: 5 mg Instruction: 1 x 5 mg tablet Condition: Dose/Route: 5 mg Instruction: 1 x 5 mg tablet Condition: Sunday Dose/Route: 5 mg Instruction: 1 x 5 mg tablet Condition: Sunday Dose/Route: 5 mg Instruction: 1 x 5 mg tablet Protocol Text: Adjustment Start Date: Sunday01/30/25 INR Value: 1.6 INR Date: 01/30/25 Recheck Date: 02/06/25 atorvastatin 80 mg tablet 80 mg PO DAILY Discharge Instructions Instructions: Upper Respiratory Infection ED Additional Instructions: At this time chest x-ray shows no evidence of pneumonia your labs are largely unremarkable negative for COVID flu RSV. However if you continue to feel worse over the next couple of days you may go ahead and start the doxycycline. Please take this with yogurt or a probiotic. Follow up with primary care provider in 3-5 days. Return to ED sooner if any worsening or concerns. Thank you for allowing us to care for you today. Referrals: Renzo Castano, [employer] [Primary Care Provider, Medicine] - 2 weeks Clinical Impression: URI (upper respiratory infection) HPI General Mode of arrival: ambulatory. Date/Time Provider Initiated Documentation: 02/03/25 20:41. Limitations to Documentation: no limitations. Information obtained by: patient, family, RN notes reviewed and old records reviewed. HPI Narrative: 69-year-old female presents to the ER with a chief complaint of URI type symptoms which began yesterday. Patient reports that her has been diagnosed with pneumonia and began feeling sick on Sunday. She reports throat pain, painful swallowing, cough and shortness of breath with chills. Upon arrival she is slightly tachycardic with an O2 sat of 91% on room air. At rest her O2 sat is 95% on room air. She does have a history of COPD and is a daily smoker. She does not use any inhalers at home. Other past medical history includes PE, celiac disease, depression, hyperlipidemia peripheral vascular disorder, spinal stenosis, compression fracture T9, CAD, chronic kidney disease, cardiomyopathy. Related Data Home Medications ?Medication ?Instructions ?Recorded ?Confirmed blood-glucose meter (Nitch #1 ea 06/15/23 02/03/25 Ultra2 Meter) blood sugar diagnostic #200 strips 07/31/23 02/03/25 bumetanide 2 mg tablet 2 mg PO DAILY #30 tabs 06/30/24 02/03/25 dapsone 25 mg tablet 50 mg (2 x 25 mg) PO BID #240 08/07/24 02/03/25 tab-caps nystatin 100,000 unit/mL oral 1 ml PO QID #473 mL 08/07/24 02/03/25 suspension clopidogrel 75 mg tablet (Plavix) 75 mg PO DAILY 11/25/24 02/03/25 nitroglycerin 0.4 mg sublingual 0.4 mg sublingual Q5M PRN 11/25/24 02/03/25 tablet atorvastatin 80 mg tablet 80 mg PO DAILY 11/26/24 02/03/25 prochlorperazine maleate 10 mg 10 mg PO TID PRN 11/27/24 02/03/25 tablet (Compazine) lancets 33 gauge ([employer] Delica #100 ea 12/10/24 02/03/25 Plus Lancet) naloxone 4 mg/actuation nasal 4 mg intranasal Q3M PRN opioid 12/24/24 02/03/25 spray (Narcan) overdose #2 ea famotidine 40 mg tablet 40 mg PO DAILY 01/06/25 02/03/25 lansoprazole 15 mg capsule,delayed 15 mg PO DAILY 01/06/25 02/03/25 release lorazepam 0.5 mg tablet (Ativan) 0.5 mg PO DAILY PRN anxiety #28 01/19/25 02/03/25 tabs hydrocodone 10 mg-acetaminophen 1 tab PO Q4H PRN pain #168 tabs 01/21/25 02/03/25 325 mg tablet Lactobacillus acidophilus 1 1,000 mmu cells PO DAILY #30 caps 01/28/25 02/03/25 billion cell capsule ferrous gluconate 324 mg (37.5 mg 324 mg PO .COMPLEX #30 tabs 01/28/25 02/03/25 iron) tablet triamcinolone acetonide 0.1 % 1 applic topical BID PRN rash #15 01/28/25 02/03/25 topical cream grams bumetanide 1 mg tablet 1 mg PO DAILY 01/29/25 02/03/25 fentanyl 12 mcg/hr transdermal 1 patch transdermal Q72H #5 ea 01/29/25 02/03/25 patch gabapentin 300 mg capsule 300 mg PO BID #180 caps 01/30/25 02/03/25 warfarin 5 mg tablet 5 mg PO QPM #90 tabs 01/30/25 02/03/25 doxycycline hyclate 100 mg tablet 100 mg PO BID 7 days #14 tabs 02/03/25 prednisone 20 mg tablet 40 mg (2 x 20 mg) PO DAILY 5 days 02/03/25 #10 tabs Previous Rx's ?Medication ?Instructions ?Recorded blood-glucose meter (Nitch #1 ea 06/15/23 Ultra2 Meter) blood sugar diagnostic #200 strips 07/31/23 bumetanide 2 mg tablet 2 mg PO DAILY #30 tabs 06/30/24 dapsone 25 mg tablet 50 mg (2 x 25 mg) PO BID #240 08/07/24 tab-caps nystatin 100,000 unit/mL oral 1 ml PO QID #473 mL 08/07/24 suspension lancets 33 gauge ([employer] Delanaya #100 ea 12/10/24 Plus Lancet) naloxone 4 mg/actuation nasal 4 mg intranasal Q3M PRN opioid 12/24/24 spray (Narcan) overdose #2 ea lorazepam 0.5 mg tablet (Ativan) 0.5 mg PO DAILY PRN anxiety #28 01/19/25 tabs hydrocodone 10 mg-acetaminophen 1 tab PO Q4H PRN pain #168 tabs 01/21/25 325 mg tablet Lactobacillus acidophilus 1 1,000 mmu cells PO DAILY #30 caps 01/28/25 billion cell capsule ferrous gluconate 324 mg (37.5 mg 324 mg PO .COMPLEX #30 tabs 01/28/25 iron) tablet triamcinolone acetonide 0.1 % 1 applic topical BID PRN rash #15 01/28/25 topical cream grams fentanyl 12 mcg/hr transdermal 1 patch transdermal Q72H #5 ea 01/29/25 patch gabapentin 300 mg capsule 300 mg PO BID #180 caps 01/30/25 warfarin 5 mg tablet 5 mg PO QPM #90 tabs 01/30/25 doxycycline hyclate 100 mg tablet 100 mg PO BID 7 days #14 tabs 02/03/25 prednisone 20 mg tablet 40 mg (2 x 20 mg) PO DAILY 5 days 02/03/25 #10 tabs Allergies Allergy/AdvReac Type Severity Reaction Status Date / Time rizatriptan benzoate (From Allergy Severe tongue Verified 02/03/25 20:37 Maxalt) swelling, diff.swallowing per pt azithromycin Allergy Intermediate SOB-pt Verified 02/03/25 20:37 reported sulfamethoxazole Allergy Unknown Other (See Verified 02/03/25 20:37 Comment) trimethoprim (From Bactrim) Allergy Unknown Other (See Verified 02/03/25 20:37 Comment) adhesive Allergy RASH Verified 02/03/25 20:37 wheat Allergy SKIN RASH Verified 02/03/25 20:37 sertraline AdvReac Intermediate sweating Verified 02/03/25 20:37 torsemide AdvReac Intermediate Other (See Verified 02/03/25 20:37 Comment) tramadol AdvReac Intermediate Nausea Verified 02/03/25 20:37 venlafaxine AdvReac Intermediate sweating,fa Verified 02/03/25 20:37 tigue,malai se amoxicillin AdvReac GI UPSET Verified 02/03/25 20:37 ondansetron (From Zofran) AdvReac Other (See Verified 02/03/25 20:37 Comment) promethazine AdvReac jitters Verified 02/03/25 20:37 General Stated Complaint: RespSymp JOSE JUAN: 3 Review of Systems All systems reviewed & are unremarkable except as noted in HPI and below Constitutional Constitutional: Reports as per HPI and Reports chills Cardiovascular Cardiovascular: Reports dyspnea Respiratory Respiratory: Reports chest congestion, Reports cough and Reports dyspnea Exam Narrative Exam Narrative: Constitutional: Alert and oriented x3. Appears stated age. Normal body habitus. Head: Normocephalic, no trauma. Eyes: Pupils PERRL, Red reflex noted, EOM's intact. Eyelids symmetrical without lesions, discharge, or swelling. ENT: Bilateral TM's WNL, External ear normal to inspection, no mastoid TTP, swelling, or erythema, Nasal turbinates WNL, no nasal discharge. Normal dentition, Posterior pharynx WNL, no exudate. Chest: RRR, Normal S1, S2, distal pulses intact. Resp: Lungs clear to auscultation bilaterally, no wheezes, rales, or rhonchi. Abdomen: Soft, non-distended, Normoactive bowel sounds all 4 quads. Musculoskeletal: Normal gait, Moves all 4 extremities without difficulty. Skin: No suspicious rashes or lesions. Capillary refill less than 2 sec. Neurologic: Cranial nerves II-XII intact. Alert and oriented x 3. Motor: No deficits noted. Sensory: Intact bilaterally all 4 extremities. Hematologic/Lymphatic: No ecchymosis, no lymphadenopathy. Course Vital Signs Vital signs: Vital Signs Temperature 36.7 C 02/03/25 20:34 Pulse 101 H 02/03/25 20:34 Respiratory Rate 20 02/03/25 20:34 Blood Pressure 174/77 H 02/03/25 20:34 Pulse Oximetry 91 L 02/03/25 20:34 Temperature 36.7 C 02/03/25 20:36 Pulse 101 H 02/03/25 20:36 Respiratory Rate 20 02/03/25 20:36 Respiratory Effort Normal 02/03/25 20:46 Respiratory Depth Normal 02/03/25 20:46 Blood Pressure 174/77 H 02/03/25 20:36 Blood Pressure Position Sitting 02/03/25 20:36 Pulse Oximetry 91 L 02/03/25 20:36 Oxygen Delivery Method Room Air 02/03/25 20:36 Oxygen Flow Rate 0 02/03/25 20:36 Medical Decision Making 69-year-old female presents to the ER with a chief complaint of URI type symptoms which began yesterday. Patient reports that her has been diagnosed with pneumonia and began feeling sick on Sunday. She reports throat pain, painful swallowing, cough and shortness of breath with chills. Upon arrival she is slightly tachycardic with an O2 sat of 91% on room air. At rest her O2 sat is 95% on room air. She does have a history of COPD and is a daily smoker. She does not use any inhalers at home. Other past medical history includes PE, celiac disease, depression, hyperlipidemia peripheral vascular disorder, spinal stenosis, compression fracture T9, CAD, chronic kidney disease, cardiomyopathy. Workup ordered including CBC CMP blood cultures x 2, chest x-ray, DuoNeb, 125 of Solu-Medrol. Fluid swab. Patient denies any chest pain. Patient's labs are largely at her baseline, she has remained hemodynamically stable throughout her stay here, according to the neurologist. Criteria patient to be ruled out for PE. Negative COVID flu RSV. Chest x-ray shows no acute abnormality however patient is concerned because of her 's recent diagnosis of pneumonia 2 days after her symptoms started he was diagnosed with pneumonia. With that in mind I will give patient prescription of doxycycline I did instruct her that if she continues to feel bad or worse over the next couple days she can go ahead and start this. I also recommended that she follow-up with her primary care provider and be reevaluated if needed. I also did discuss using her Advair as previously prescribed that she has at home however she states that she will not use it and does not want to use. Despite feeling better after the steroids and Duo neb given here. Patient discharged hemodynamically stable condition. Discussed strict return instructions. This text was generated using revoPT dictation system, please disregard any oddities of phrase or misspellings. Medical Records Medical records reviewed: Yes I reviewed the patient's medical records. Imaging Data Radiologic Study: Imaging: X-Ray Radiologist's impression: Clinical indication: Other: Cough, SOB TECHNIQUE: Imaging protocol: Radiologic exam of the chest. Views: 2 views. COMPARISON: CR XR CHEST 2V PA LATERAL 07/18/2022 9:23 AM FINDINGS: Lungs: Lungs are adequately inflated. No focal consolidation or evidence of pulmonary edema. Chronic coarsening of the perihilar and basilar interstitial markings appears similar to prior. Pleural spaces: No visible pleural effusion. No pneumothorax. Heart/Mediastinum: Cardiomediastinal contours within normal limits. Diaphragm: Asymmetric elevation of the right hemidiaphragm similar to prior. Bones/joints: Chronic anterior wedge deformity of T9 with increased thoracic kyphosis similar to prior. IMPRESSION: No acute findings. Thank you for allowing us to participate in the care of your patient. Dictated and Authenticated by: Esteban Villa MD Lab Data Lab results reviewed: Yes I reviewed the patient's lab results. Labs: 02/03/25 21:50 Blood Blood Culture - Pending 02/03/25 21:33 Blood Blood Culture - Pending Laboratory Tests Range/Units 02/03/25 02/03/25 20:51 21:00 WBC (4.4-10.8) 10^3/uL 4.38 L RBC (3.93-5.22) 10^6/uL 2.97 L Hgb (11.2-15.7) g/dL 9.9 L Hct (36.0-46.0) % 30.2 L MCV (80-95) fL 102 H MCH (27.0-33.0) pg 33.3 H MCHC (32.0-36.0) % 32.8 RDW (11.7-14.6) % 12.4 Plt Count (130-400) 10^3/uL 129 L MPV (8.0-11.0) fL 9.1 Immature Gran % % 0.2 Neutrophils % % 67.9 Lymphocytes % % 20.8 Monocytes % % 8.2 Eosinophils % % 2.7 Basophils % % 0.2 Nucleated RBC % (0.0-0.3) % 0.0 Absolute Neutrophils (1.2-6.7) 10^3/uL 2.97 Absolute Lymphocytes (1.2-3.4) 10^3/uL 0.91 L Absolute Monocytes (0.1-0.8) 10^3/uL 0.36 Absolute Eosinophils (0.0-0.7) 10^3/uL 0.12 Absolute Basophils (0.0-0.2) 10^3/uL 0.01 D-Dimer (<500) ng/mlFEU 818 H Sodium (136-145) mmol/L 135 L Potassium (3.5-5.1) mmol/L 4.6 Chloride (98-107) mmol/L 100 Carbon Dioxide (21.0-32.0) mmol/L 30.5 Anion Gap (3-11) mmol/L 4.5 BUN (7-18) mg/dL 21 H Creatinine (0.55-1.02) mg/dL 1.3 H Est GFR (CKD-EPI 2020) (mL/min/1.73m2) 44.79 Glucose (74-106) mg/dL 110 H Calcium (8.5-10.1) mg/dL 9.1 Total Bilirubin (0.2-1.0) mg/dL 0.3 AST (15-37) U/L 22 ALT (14-59) U/L 22 Alkaline Phosphatase (46-116) U/L 223 H Total Protein (6.4-8.2) g/dL 7.4 Albumin (3.4-5.0) g/dL 3.2 L COVID-19 Source Nasopharynx SARS-CoV-2 (PCR) (Negative) Negative Influenza Type A (PCR) (Negative) Negative Influenza Type B (PCR) (Negative) Negative RSV (PCR) (Negative) Negative PFSH All Active Problems (Updated 02/03/25 @ 23:24 by Hellen Swenson NP) COPD exacerbation (Acute) URI (upper respiratory infection) (Acute) Chest pain (Acute) Back pain, thoracic (Acute) Impaired instrumental activities of daily living (Acute) Financial difficulties (Acute) Encounter for medication review (Acute) ACP (advance care planning) (Acute) Anxiety (Chronic) Hepatic encephalopathy (Acute) Palliative care patient (Acute) Discharge planning issues (Acute) Folic acid deficiency (Acute) Intractable vomiting (Acute) N&V (nausea and vomiting) (Acute) H/O fasciotomy (Acute) PAD (peripheral artery disease) (Acute) Ischemic cardiomyopathy (Acute) 11/27/24 EF 20-25% with global hypokinesis. -hb Severe protein-calorie malnutrition (Acute) CAD (coronary artery disease) (Chronic) Cardiac arrest (Acute) Iron deficiency anemia (Acute) Fracture, thoracic vertebra, compression (Acute) Rib pain on right side (Acute) Chronic pain syndrome (Chronic) History of pulmonary embolus (PE) (Acute 05/15/13) Finger mass, left (Acute) s/p Left index finger PIP joint cyst excision 08/06/24 Stage 3 chronic kidney disease (Acute) Ganglion cyst of finger (Acute) Cardiomyopathy (Acute) Anticoagulation goal of INR 2 to 3 (Acute) Ganglion cyst (Acute) Bilateral lower extremity edema (Acute) Compression fracture of T9 vertebra (Acute) Crackling sound in left ear (Acute) Nasal vestibulitis (Acute) Tinnitus (Acute) Rotator cuff tear, right (Acute) DEPO MEDROL 12/04/23 Right shoulder pain (Acute) Ocular migraine (Acute) Medication overuse headache (Acute) Migraine headache with aura (Acute) Chronic headache (Acute) Chronic pain syndrome (Chronic 05/23/13) Diabetes (Chronic 12/01/13) Chronic anticoagulation (Acute) Xerostomia (Acute) Angular cheilitis with candidiasis (Acute) Medical History Constipation Supratherapeutic INR Skin lesion Hyponatremia Left hand pain Seborrheic dermatitis Hypomagnesemia Myositis associated antibody positive Per [facility] Generalized weakness Candidiasis of mouth Gait abnormality Calcinosis cutis Other osteoporosis with current pathological fracture, left ankle and foot, sequela Right arm pain Left foot pain Edema of left foot Thoracic back pain Mid back pain Chest pain Right foot pain Gout Encounter for immunization Abnormal LFTs (liver function tests) Chronic anemia Pt refuses colonoscopy. Feels related to Celiac Disease Sore throat Hoarseness of voice Leg pain Elevated blood pressure reading Fatigue Epigastric pain Zoster Corns Abnormal liver function Carpal tunnel syndrome Corns and callus History of dysmenorrhea (07/19/95) Elevation of level of transaminase and lactic acid dehydrogenase (LDH) Foot pain Plantar fasciitis Pulmonary embolism Microcytic anemia Dyspnea on effort Chronic cough Protein C deficiency Chronic pain in left foot Venous insufficiency of both lower extremities (08/03/15) Ulnar neuropathy of left upper extremity (03/21/16) Spinal stenosis, lumbar region with neurogenic claudication (08/17/15) Smoker Peripheral vascular disease (07/28/14) Stable [place] 12[place]20[place] [facility] [place] Obesity Nocturnal leg cramps (07/04/16) Migraine Low back pain Irritable bowel syndrome with diarrhea (06/26/17) Hyperlipidemia Gastroesophageal reflux disease Diabetic peripheral neuropathy (08/03/15) OPTICAL EXPRESSIONS; 08/31/15; LEFT EYE 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 Carpal tunnel syndrome of right wrist (08/03/15) Bursitis of right shoulder (07/04/16) Nausea & vomiting GERD (gastroesophageal reflux disease) Diabetes mellitus Pulmonary embolism DVT (deep venous thrombosis) Surgical History History of angioplasty of peripheral vessel left iliac vein stent (10/01/2009[place] [facility] [place] 18mm, length 60mm, lot [id number] History of carpal tunnel surgery of left wrist Hx of cholecystectomy History of section section Family History Mother Personal history of malignant neoplasm BONE,THYROID,BACK,LIVER,BLADDER,BREAST Father Asthma Sister No problems noted. Brother No problems noted. Social History Smoking/Tobacco Use Status: Current every day Tobacco Type: cigarettes Smoking risk assessment performed?: Yes Alcohol Intake: never Drug use: Never Substance use type: does not use Household members: spouse Housing: house What type of physical activity do you participate in: none Do you feel safe at home: Yes Do you feel safe in your relationship?: Yes Additional Social history: Dtr at [facility]
[2025-02-03 21:07] LABS: Abs Immature Grans 0.01 10^3/uL (0.0-0.06); Absolute Basophil Count 0.01 10^3/uL (0.0-0.2); Absolute Eosinophil Count 0.12 10^3/uL (0.0-0.7); Absolute Lymphocyte Count 0.91 10^3/uL (1.2-3.4); Absolute Monocyte Count 0.36 10^3/uL (0.1-0.8); Absolute Neutrophil Count 2.97 10^3/uL (1.2-6.7); Basophils % 0.2 %; Eosinophils % 2.7 %; HCT 30.2 % (36.0-46.0); HGB 9.9 g/dL (11.2-15.7); Immature Grans % 0.2 %; Lymphocytes % 20.8 %; MCH 33.3 pg (27.0-33.0); MCHC 32.8 % (32.0-36.0); MCV 102 fL (80-95); MPV 9.1 fL (8.0-11.0); Monocytes % 8.2 %; Neutrophils % 67.9 %; Platelet Count 129 10^3/uL (130-400); RBC 2.97 10^6/uL (3.93-5.22); RDW 12.4 % (11.7-14.6); RDW-SD 46.7 fL; WBC 4.38 10^3/uL (4.4-10.8)
[2025-02-03] MEDS: methylPREDNISolone SUCC 125 MG VIAL IVP (21:15)
[2025-02-03] MEDS: Albuterol/Ipratropium 3 ML UPD VIAL UPD (21:15)
[2025-02-03 21:23] LABS: ALT 22 U/L (14-59); AST 22 U/L (15-37); Albumin 3.2 g/dL (3.4-5.0); Alkaline Phosphatase 223 U/L (46-116); Anion Gap 4.5 mmol/L (3-11); BUN 21 mg/dL (7-18); Bilirubin, Total 0.3 mg/dL (0.2-1.0); CO2 30.5 mmol/L (21.0-32.0); CREATININE 1.3 mg/dL (0.55-1.02); Calcium 9.1 mg/dL (8.5-10.1); Chloride 100 mmol/L (98-107); Estimated GFR 44.79 (mL/min/1.73m2); Glucose 110 mg/dL (74-106); Potassium 4.6 mmol/L (3.5-5.1); Sodium 135 mmol/L (136-145); Total Protein 7.4 g/dL (6.4-8.2)
[2025-02-03 21:34] LABS: COVID-19 PCR Negative (Negative); Influenza A PCR Negative (Negative); Influenza B PCR Negative (Negative); RSV PCR Negative (Negative)
[2025-02-03 21:34] LABS: D-Dimer 818 ng/mlFEU (<500)
[2025-02-03 21:36] LABS: Source Nasopharynx
--- NOTE | 2025-02-03 22:45 | DI.VRAD_ITS ---
PROCEDURE INFORMATION: Exam: XR Chest Exam date and time: 02/03/2025 10:15 PM Age: 69 years old Clinical indication: Other: Cough, SOB TECHNIQUE: Imaging protocol: Radiologic exam of the chest. Views: 2 views. COMPARISON: CR XR CHEST 2V PA LATERAL 07/18/2022 9:23 AM FINDINGS: Lungs: Lungs are adequately inflated. No focal consolidation or evidence of pulmonary edema. Chronic coarsening of the perihilar and basilar interstitial markings appears similar to prior. Pleural spaces: No visible pleural effusion. No pneumothorax. Heart/Mediastinum: Cardiomediastinal contours within normal limits. Diaphragm: Asymmetric elevation of the right hemidiaphragm similar to prior. Bones/joints: Chronic anterior wedge deformity of T9 with increased thoracic kyphosis similar to prior. IMPRESSION: No acute findings. Dictated and Authenticated by: Esteban Villa MD. Orderin Messi Macedo MD
== END 2025-02-03 23:33 | disposition home or self-care (01) ==
PROVIDERS: Emergency Provider Registered Nurse Emergency; PCP Nurse Practitioner Family
DX: J06.9 Acute upper respiratory infection, unspecified (principal); J44.1 Chronic obstructive pulmonary disease with (acute) exacerbation; E11.40 Type 2 diabetes mellitus with diabetic neuropathy, unspecified; I25.10 Atherosclerotic heart disease of native coronary artery without angina pectoris; N18.30 Chronic kidney disease, stage 3 unspecified; E78.5 Hyperlipidemia, unspecified; F17.210 Nicotine dependence, cigarettes, uncomplicated; Z79.02 Long term (current) use of antithrombotics/antiplatelets; Z79.01 Long term (current) use of anticoagulants
CPT/HCPCS: 36415; 80053; 87040; 87637; 94640; 96374; 99284; 71046; 85025; 85379; J2919; J7620

== ENCOUNTER 2025-03-05 09:28 | Outpatient (CLI) | payer MEDICARE, SELFPAY ==
[2025-03-05 10:04] LABS: INR 1.9 (0.9-1.1); Prothrombin Time 18.1 sec (9.1-11.1)
== END 2025-03-05 09:29 | disposition home or self-care (01) ==
LOC: LBO 09:29
PROVIDERS: PCP Nurse Practitioner Family; Visit Provider Nurse Practitioner Family
DX: Z79.01 Long term (current) use of anticoagulants (principal); Z86.711 Personal history of pulmonary embolism
CPT/HCPCS: 36415; 85610

== ENCOUNTER 2025-03-12 08:40 | Outpatient (CLI) | payer MEDICARE, SELFPAY ==
[2025-03-12 09:05] LABS: INR 1.5 (0.9-1.1); Prothrombin Time 14.5 sec (9.1-11.1)
== END 2025-03-12 08:41 | disposition home or self-care (01) ==
LOC: LBO 08:41
PROVIDERS: PCP Nurse Practitioner Family; Visit Provider Nurse Practitioner Family
DX: Z79.01 Long term (current) use of anticoagulants (principal); Z86.711 Personal history of pulmonary embolism
CPT/HCPCS: 36415; 85610

== ENCOUNTER 2025-03-19 09:37 | Outpatient (CLI) | payer MEDICARE, SELFPAY ==
[2025-03-19 09:47] LABS: INR 3.0 (0.9-1.1); Prothrombin Time 28.0 sec (9.1-11.1)
== END 2025-03-19 09:38 | disposition home or self-care (01) ==
LOC: LBO 09:37
PROVIDERS: PCP Nurse Practitioner Family; Visit Provider Nurse Practitioner Family
DX: Z86.711 Personal history of pulmonary embolism (principal); Z79.01 Long term (current) use of anticoagulants
CPT/HCPCS: 36415; 85610

== ENCOUNTER 2025-03-27 08:59 | Outpatient (CLI) | payer MEDICARE, SELFPAY ==
[2025-03-27 09:08] LABS: INR 2.6 (0.9-1.1); Prothrombin Time 24.2 sec (9.1-11.1)
== END 2025-03-27 09:00 | disposition home or self-care (01) ==
LOC: LBO 09:00
PROVIDERS: PCP Nurse Practitioner Family; Visit Provider Nurse Practitioner Family
DX: Z79.01 Long term (current) use of anticoagulants (principal); Z86.711 Personal history of pulmonary embolism
CPT/HCPCS: 36415; 85610

== ENCOUNTER 2025-04-17 15:42 | Outpatient (REF) | payer MEDICARE, SELFPAY | END 2025-04-17 15:43 | disposition home or self-care (01) | LOC: LBN 15:42 | PROVIDERS: PCP Nurse Practitioner Family; Visit Provider Nurse Practitioner Family | DX: R30.0 Dysuria (principal) | CPT/HCPCS: 87086 ==

== ENCOUNTER 2025-04-23 11:36 | Outpatient (CLI) | payer MEDICARE, SELFPAY ==
[2025-04-23 09:29] LABS: INR 2.5 (0.9-1.1); Prothrombin Time 23.5 sec (9.1-11.1)
== END 2025-04-23 11:37 | disposition home or self-care (01) ==
LOC: LBO 11:36
PROVIDERS: PCP Nurse Practitioner Family; Visit Provider Nurse Practitioner Family
DX: Z86.711 Personal history of pulmonary embolism (principal)
CPT/HCPCS: 36415; 85610

== ENCOUNTER 2025-05-19 04:50 | Outpatient (CLI) | payer MEDICARE, SELFPAY ==
[2025-05-19 11:55] LABS: INR 3.5 (0.9-1.1); Prothrombin Time 32.0 sec (9.1-11.1)
== END 2025-05-19 04:51 ==
LOC: LBO 05-20 04:50
PROVIDERS: PCP Nurse Practitioner Family; Visit Provider Nurse Practitioner Family
DX: Z79.01 Long term (current) use of anticoagulants (principal)
CPT/HCPCS: 36415; 85610

== ENCOUNTER 2025-05-27 12:10 | Outpatient (CLI) | payer MEDICARE, SELFPAY ==
[2025-05-27 12:50] LABS: Prothrombin Time 19.6 sec (9.1-11.1)
[2025-05-27 12:53] LABS: INR 2.0 (0.9-1.1)
== END 2025-05-27 12:11 | disposition home or self-care (01) ==
LOC: LBO 12:10
PROVIDERS: Nurse Practitioner Family; PCP Nurse Practitioner Family; Visit Provider Nurse Practitioner Family
DX: Z86.711 Personal history of pulmonary embolism (principal)
CPT/HCPCS: 36415; 85610

== ENCOUNTER 2025-06-09 10:35 | Outpatient (CLI) | payer MEDICARE, SELFPAY ==
[2025-06-09 10:56] LABS: INR 2.2 (0.9-1.1); Prothrombin Time 20.8 sec (9.1-11.1)
== END 2025-06-09 10:36 | disposition home or self-care (01) ==
LOC: LBO 10:36
PROVIDERS: PCP Nurse Practitioner Family; Visit Provider Nurse Practitioner Family
DX: Z86.711 Personal history of pulmonary embolism (principal); Z79.01 Long term (current) use of anticoagulants
CPT/HCPCS: 36415; 85610

== ENCOUNTER 2025-06-23 13:00 | Outpatient (CLI) | payer MEDICARE, SELFPAY ==
[2025-06-23 14:20] LABS: INR 2.2 (0.9-1.1); Prothrombin Time 20.7 sec (9.1-11.1)
== END 2025-06-23 13:01 | disposition home or self-care (01) ==
LOC: LBO 13:01
PROVIDERS: PCP Nurse Practitioner Family; Visit Provider Nurse Practitioner Family
DX: Z86.711 Personal history of pulmonary embolism (principal)
CPT/HCPCS: 36415; 85610

== ENCOUNTER → 2025-07-07 14:58 | Outpatient (BNVA) | payer MEDICARE, SELFPAY | PROVIDERS: PCP Nurse Practitioner Family; Referring Provider Nurse Practitioner Family; Visit Provider Podiatrist | DX: L60.3 Nail dystrophy (principal); B35.1 Tinea unguium; E11.42 Type 2 diabetes mellitus with diabetic polyneuropathy; I73.89 Other specified peripheral vascular diseases; R09.89 Other specified symptoms and signs involving the circulatory and respiratory systems; R60.0 Localized edema; L60.2 Onychogryphosis; L60.8 Other nail disorders | CPT/HCPCS: 11719; 11720; 11750 ==

== ENCOUNTER 2025-07-17 12:19 | Outpatient (CLI) | payer MEDICARE, SELFPAY ==
[2025-07-17 12:49] LABS: INR 2.6 (0.9-1.1); Prothrombin Time 24.4 sec (9.1-11.1)
== END 2025-07-17 12:20 | disposition home or self-care (01) ==
LOC: LBO 12:20
PROVIDERS: PCP Nurse Practitioner Family; Visit Provider Nurse Practitioner Family
DX: Z13.6 Encounter for screening for cardiovascular disorders (principal); Z86.711 Personal history of pulmonary embolism
CPT/HCPCS: 36415; 85610